=== PATIENT | female | born 1955 | race Caucasian/White ===

== ENCOUNTER → 2017-07-05 15:40 | Outpatient (CLI) | payer BC, SELFPAY ==
[2017-07-05 17:19] LABS: Absolute Lymphocyte Count 1.59 X10^3/ul (0.83-4.51); Absolute Neutrophil Count 3.1 X10^3/uL (2.0-7.7); Basophil# 0.02 X10^3/uL; Basophil% 0.3 % (0-1); Eosinophil# 0.69 X10^3/uL; Eosinophils% 11.6 % (0-5); Hematocrit 40.6 % (37-47); Hemoglobin 13.7 g/dl (12.0-15.0); Lymphocyte # 1.59 X10^3/ul (4.0); Lymphocyte % 26.8 % (19-41); Mean Corp Hgb Conc 33.7 g/gl (32-36); Mean Corpuscular Hgb 32.4 pg (27.0-32.0); Mean Platelet Vol. 10.8 fl (6.2-12.0); Monocyte% 8.4 % (0-10); Neutrophil # 3.12 X10^3/uL (2.7-7.7); Neutrophil % 52.7 % (47-70); Platelet Count 299 K/mm3 (150-450); RBC Distribution Width CV 12.3 % (11.6-14.6); RBC Distribution Width SD 42.2 fl (35.1-43.9); Red Blood Count 4.23 M/mm3 (4.2-5.4); White Blood Count 5.9 K/mm3 (4.4-11.0)
[2017-07-05 17:26] LABS: ALB/GLOB Ratio 1.1 RATIO (0.9-2.4); AST(SGOT) 31 U/L (15-37); Alanine Aminotransfer ALT/SGPT 30 U/L (13-56); Albumin, Serum 3.6 g/dL (3.2-5.0); Alkaline Phosphatase 73 U/L (45-117); Anion Gap 7 (5-15); BUN 20 mg/dL (7-18); BUN/Creat Ratio 22.8 RATIO (10-20); Calcium,Total 8.7 mg/dL (8.5-10.1); Chloride 103 mmol/L (98-107); Creatinine, Serum 0.88 mg/dL (0.55-1.02); EST Glomerular Filtration Rate 69 mL/min (>60); Est Glom Filt Rate - Afr Amer 83 mL/min (>60); Globulin 3.2 g/dL (2.2-4.2); Glucose 80 mg/dL (74-106); Potassium 4.1 mmol/L (3.5-5.1); Protein, Total 6.8 g/dL (6.4-8.2); Sodium Level 140 mmol/L (136-145); Thyroid Stim Hormone (TSH) 1.98 uIU/mL (0.358-3.74)
[2017-07-05 17:58] LABS: POSITIVE COUNT NO; POSITIVE DIFFERENTIAL NO; POSITIVE MORPHOLOGY NO
[2017-07-07 11:14] LABS: Hep C Antibodies <0.1 s/co ratio (0.0-0.9)
== END ==
PROVIDERS: Family Provider Family Medicine Geriatric Medicine; PCP Family Medicine Geriatric Medicine; Visit Provider Family Medicine Geriatric Medicine
DX: E55.9 Vitamin D deficiency, unspecified (principal); R53.83 Other fatigue
CPT/HCPCS: 36415; 80053; 84443; 85025; 86803

== ENCOUNTER → 2018-01-04 11:08 | Outpatient (CLI) | payer BC, SELFPAY ==
[2018-01-04 12:40] LABS: Absolute Lymphocyte Count 1.37 X10^3/ul (0.83-4.51); Absolute Neutrophil Count 3.7 X10^3/uL (2.0-7.7); Basophil# 0.03 X10^3/uL; Basophil% 0.5 % (0-1); Eosinophil# 0.54 X10^3/uL; Eosinophils% 8.6 % (0-5); Hematocrit 40.3 % (37-47); Hemoglobin 13.5 g/dl (12.0-15.0); Lymphocyte # 1.37 X10^3/ul (4.0); Lymphocyte % 21.8 % (19-41); Mean Corp Hgb Conc 33.5 g/gl (32-36); Mean Corpuscular Hgb 32.2 pg (27.0-32.0); Mean Corpuscular Volume 96.2 fL (81-99); Mean Platelet Vol. 10.1 fl (6.2-12.0); Monocyte# 0.65 X10^3/uL; Monocyte% 10.4 % (0-10); Neutrophil # 3.68 X10^3/uL (2.7-7.7); Neutrophil % 58.5 % (47-70); Platelet Count 411 K/mm3 (150-450); RBC Distribution Width CV 12.9 % (11.6-14.6); RBC Distribution Width SD 43.5 fl (35.1-43.9); Red Blood Count 4.19 M/mm3 (4.2-5.4); White Blood Count 6.3 K/mm3 (4.4-11.0)
[2018-01-04 12:43] LABS: POSITIVE COUNT NO; POSITIVE DIFFERENTIAL NO; POSITIVE MORPHOLOGY NO
[2018-01-04 13:06] LABS: ALB/GLOB Ratio 0.8 RATIO (0.9-2.4); AST(SGOT) 27 U/L (15-37); Alanine Aminotransfer ALT/SGPT 31 U/L (13-56); Albumin, Serum 3.3 g/dL (3.2-5.0); Alkaline Phosphatase 89 U/L (45-117); Anion Gap 6 (5-15); BUN 15 mg/dL (7-18); BUN/Creat Ratio 16.1 RATIO (10-20); Calcium,Total 8.6 mg/dL (8.5-10.1); Chloride 102 mmol/L (98-107); Creatinine, Serum 0.93 mg/dL (0.55-1.02); EST Glomerular Filtration Rate 64 mL/min (>60); Est Glom Filt Rate - Afr Amer 78 mL/min (>60); Glucose 71 mg/dL (74-106); Potassium 3.9 mmol/L (3.5-5.1); Protein, Total 7.3 g/dL (6.4-8.2); Sodium Level 138 mmol/L (136-145); Thyroid Stim Hormone (TSH) 5.16 uIU/mL (0.358-3.74)
== END ==
PROVIDERS: Family Provider Family Medicine Geriatric Medicine; PCP Family Medicine Geriatric Medicine; Visit Provider Family Medicine Geriatric Medicine
DX: R53.83 Other fatigue (principal)
CPT/HCPCS: 36415; 80053; 84443; 85025

== ENCOUNTER → 2018-02-01 14:35 | Outpatient (CLI) | payer BC, SELFPAY ==
--- NOTE | 2018-02-01 16:24 | RAD_ITS ---
STUDY: X-RAY - ABDOMEN/PELVIS REASON FOR EXAM: Female, 63 years old. Loss of appetite. TECHNIQUE: 1 view COMPARISON: None. FINDINGS: Normal visualized lung bases. Nondistended stomach and small bowel. Substantial well-formed appearing stool in the transverse, left and distal colon. Negative for organomegaly. There is a band of small punctate densities across the liver which have the look of an filmscreen artifact. Phleboliths of the pelvis. Normal visualized osseous structures. RAD/Abdomen Single View IMPRESSION: Substantial well formed stool present throughout the colon without other acute abdominal or pelvic findings. Band of small punctate calcifications transversely across the liver which have the look of an artifact. Otherwise negative for additional acute abdominal or pelvic findings. Electronically Signed: Judi Berrios MD at 16:50 EST , Service support ,
--- NOTE | 2018-02-01 16:35 | RAD_ITS ---
STUDY: X-RAY CHEST REASON FOR EXAM: Female, 63 years old. SOB, chills without fever. TECHNIQUE: PA and lateral views. COMPARISON: 05/06/2016. FINDINGS: The lungs are clear and expanded. There is no demonstrated pleural abnormality. Normal size heart. Normal mediastinum and arya. Normal visualized pulmonary arteries. Normal visualized aortic arch and descending thoracic aorta. Normal visualized thoracic spine. Normal visualized ribs, clavicles, and shoulders. There is no demonstrated abnormality of the visualized soft tissue structures of the upper abdomen. RAD/Chest PA and Lateral IMPRESSION: Normal x-ray examination of the chest. Electronically Signed: Mary Olsen MD at 16:26 EST Tel , Service support ,
[2018-02-01 16:56] LABS: Absolute Lymphocyte Count 2.01 X10^3/ul (0.83-4.51); Absolute Neutrophil Count 4.6 X10^3/uL (2.0-7.7); Basophil# 0.01 X10^3/uL; Basophil% 0.1 % (0-1); Eosinophils% 2.7 % (0-5); Hematocrit 43.2 % (37-47); Hemoglobin 14.1 g/dl (12.0-15.0); Lymphocyte # 2.01 X10^3/ul (4.0); Lymphocyte % 26.9 % (19-41); Mean Corp Hgb Conc 32.6 g/gl (32-36); Mean Corpuscular Hgb 31.8 pg (27.0-32.0); Mean Corpuscular Volume 97.5 fL (81-99); Mean Platelet Vol. 9.5 fl (6.2-12.0); Monocyte# 0.58 X10^3/uL; Monocyte% 7.8 % (0-10); Neutrophil # 4.64 X10^3/uL (2.7-7.7); Neutrophil % 62.1 % (47-70); Platelet Count 434 K/mm3 (150-450); RBC Distribution Width CV 13.2 % (11.6-14.6); RBC Distribution Width SD 47.3 fl (35.1-43.9); Red Blood Count 4.43 M/mm3 (4.2-5.4); White Blood Count 7.5 K/mm3 (4.4-11.0)
[2018-02-01 17:00] LABS: POSITIVE COUNT NO; POSITIVE DIFFERENTIAL NO; POSITIVE MORPHOLOGY NO
[2018-02-01 17:14] LABS: ALB/GLOB Ratio 0.9 RATIO (0.9-2.4); AST(SGOT) 29 U/L (15-37); Alanine Aminotransfer ALT/SGPT 38 U/L (13-56); Albumin, Serum 3.6 g/dL (3.2-5.0); Alkaline Phosphatase 78 U/L (45-117); Anion Gap 8 (5-15); BUN 15 mg/dL (7-18); BUN/Creat Ratio 16.4 RATIO (10-20); Calcium,Total 8.8 mg/dL (8.5-10.1); Chloride 102 mmol/L (98-107); Creatinine, Serum 0.92 mg/dL (0.55-1.02); EST Glomerular Filtration Rate 66 mL/min (>60); Est Glom Filt Rate - Afr Amer 79 mL/min (>60); Globulin 3.9 g/dL (2.2-4.2); Glucose 87 mg/dL (74-106); Potassium 3.8 mmol/L (3.5-5.1); Protein, Total 7.5 g/dL (6.4-8.2); Sodium Level 140 mmol/L (136-145); Thyroid Stim Hormone (TSH) 1.86 uIU/mL (0.358-3.74)
== END ==
LOC: POLAB3 14:36 → RAD 16:12
PROVIDERS: Family Provider Family Medicine Geriatric Medicine; PCP Family Medicine Geriatric Medicine; Referring Provider Family Medicine Geriatric Medicine; Visit Provider Family Medicine Geriatric Medicine
DX: E86.0 Dehydration (principal); N39.0 Urinary tract infection, site not specified; R06.89 Other abnormalities of breathing; R63.0 Anorexia; R68.83 Chills (without fever)
CPT/HCPCS: 36415; 71046; 74018; 80053; 84443; 85025; 87086; 87088; 87633

== ENCOUNTER → 2018-05-26 12:07 | Outpatient (CLI) | payer BC, SELFPAY ==
--- NOTE | 2018-05-26 12:36 | RAD_ITS ---
STUDY: X-RAY CHEST REASON FOR EXAM: Female, 63 years old. 4 day history of cough. TECHNIQUE: PA and lateral views of the chest. COMPARISON: Comparison is made with prior study dated February 01, 2018. FINDINGS: Increased markings are seen in the right middle lobe and lingular segment of the left upper lobe. This may represent early infiltrate. Follow-up is recommended. There is no demonstrated pleural abnormality. Normal size heart. Normal mediastinum and arya. Normal visualized pulmonary arteries. Normal visualized aortic arch and descending thoracic aorta. Normal visualized thoracic spine. Normal visualized ribs, clavicles, and shoulders. Faint calcifications are seen in the right upper quadrant. These may represent gallstones. RAD/Chest PA and Lateral IMPRESSION: Increased markings in the right middle lobe and lingular segment of the left upper lobe. Follow-up is recommended. Electronically Signed: Chicho Hercules, at 13:11 EST , Service support ,
== END ==
PROVIDERS: Family Provider Family Medicine Geriatric Medicine; PCP Family Medicine Geriatric Medicine; Referring Provider Family Medicine Geriatric Medicine; Visit Provider Family Medicine Geriatric Medicine
DX: J18.9 Pneumonia, unspecified organism (principal); R68.83 Chills (without fever)
CPT/HCPCS: 71046; 87633

== ENCOUNTER → 2018-07-06 11:29 | Outpatient (CLI) | payer BC, SELFPAY ==
[2018-07-06 12:53] LABS: Absolute Lymphocyte Count 1.61 X10^3/ul (0.83-4.51); Absolute Neutrophil Count 2.4 X10^3/uL (2.0-7.7); Basophil# 0.03 X10^3/uL; Basophil% 0.6 % (0-1); Eosinophil# 0.33 X10^3/uL; Eosinophils% 6.7 % (0-5); Hematocrit 41.2 % (37-47); Hemoglobin 13.7 g/dl (12.0-15.0); Lymphocyte # 1.61 X10^3/ul (4.0); Lymphocyte % 32.5 % (19-41); Mean Corp Hgb Conc 33.3 g/gl (32-36); Mean Corpuscular Hgb 30.9 pg (27.0-32.0); Mean Platelet Vol. 9.7 fl (6.2-12.0); Monocyte# 0.55 X10^3/uL; Monocyte% 11.1 % (0-10); Neutrophil # 2.42 X10^3/uL (2.7-7.7); Neutrophil % 48.9 % (47-70); Platelet Count 377 K/mm3 (150-450); RBC Distribution Width CV 12.9 % (11.6-14.6); RBC Distribution Width SD 44.5 fl (35.1-43.9); Red Blood Count 4.43 M/mm3 (4.2-5.4)
[2018-07-06 12:58] LABS: POSITIVE COUNT NO; POSITIVE DIFFERENTIAL NO; POSITIVE MORPHOLOGY NO
[2018-07-06 13:06] LABS: Vitamin D,25 Hydroxy 34.6 ng/mL (29.95-100.01)
[2018-07-06 13:17] LABS: AST(SGOT) 31 U/L (15-37); Alanine Aminotransfer ALT/SGPT 28 U/L (13-56); Albumin, Serum 3.5 g/dL (3.2-5.0); Alkaline Phosphatase 84 U/L (45-117); Anion Gap 5 (5-15); BUN 18 mg/dL (7-18); BUN/Creat Ratio 20.7 RATIO (10-20); Calcium,Total 8.7 mg/dL (8.5-10.1); Chloride 104 mmol/L (98-107); Creatinine, Serum 0.87 mg/dL (0.55-1.02); EST Glomerular Filtration Rate 70 mL/min (>60); Est Glom Filt Rate - Afr Amer 84 mL/min (>60); Globulin 3.5 g/dL (2.2-4.2); Glucose 75 mg/dL (74-106); Potassium 3.9 mmol/L (3.5-5.1); Sodium Level 139 mmol/L (136-145); Thyroid Stim Hormone (TSH) 1.16 uIU/mL (0.358-3.74)
== END ==
PROVIDERS: Family Provider Family Medicine Geriatric Medicine; PCP Family Medicine Geriatric Medicine; Visit Provider Family Medicine Geriatric Medicine
DX: E03.9 Hypothyroidism, unspecified (principal); E55.9 Vitamin D deficiency, unspecified; R53.83 Other fatigue
CPT/HCPCS: 36415; 80053; 82306; 84443; 85025

== ENCOUNTER → 2018-07-21 16:20 | Outpatient (CLI) | payer BC, SELFPAY ==
[2018-07-21 14:49] VITALS: BMI 26.5
== END ==
PROVIDERS: Family Provider Family Medicine Geriatric Medicine; PCP Family Medicine Geriatric Medicine; Referring Provider Family Medicine Geriatric Medicine; Visit Provider Family Medicine Geriatric Medicine
DX: R68.83 Chills (without fever) (principal)
CPT/HCPCS: 87633

== ENCOUNTER → 2018-07-22 09:55 | Outpatient (CLI) | payer BC, SELFPAY ==
[2018-07-21 14:49] VITALS: BMI 26.5
[2018-07-22 11:10] LABS: Absolute Lymphocyte Count 1.62 X10^3/ul (0.83-4.51); Absolute Neutrophil Count 3.9 X10^3/uL (2.0-7.7); Basophil# 0.03 X10^3/uL; Basophil% 0.4 % (0-1); Eosinophil# 0.47 X10^3/uL; Hematocrit 40.9 % (37-47); Hemoglobin 13.8 g/dl (12.0-15.0); Lymphocyte # 1.62 X10^3/ul (4.0); Lymphocyte % 24.3 % (19-41); Mean Corp Hgb Conc 33.7 g/gl (32-36); Mean Corpuscular Hgb 31.6 pg (27.0-32.0); Mean Corpuscular Volume 93.6 fL (81-99); Mean Platelet Vol. 9.5 fl (6.2-12.0); Monocyte# 0.62 X10^3/uL; Monocyte% 9.3 % (0-10); Neutrophil # 3.93 X10^3/uL (2.7-7.7); Platelet Count 370 K/mm3 (150-450); RBC Distribution Width CV 13.2 % (11.6-14.6); RBC Distribution Width SD 45.4 fl (35.1-43.9); Red Blood Count 4.37 M/mm3 (4.2-5.4); White Blood Count 6.7 K/mm3 (4.4-11.0)
[2018-07-22 11:12] LABS: POSITIVE COUNT NO; POSITIVE DIFFERENTIAL NO; POSITIVE MORPHOLOGY NO
[2018-07-22 11:29] LABS: ALB/GLOB Ratio 0.9 RATIO (0.9-2.4); AST(SGOT) 36 U/L (15-37); Alanine Aminotransfer ALT/SGPT 27 U/L (13-56); Albumin, Serum 3.4 g/dL (3.2-5.0); Alkaline Phosphatase 85 U/L (45-117); Anion Gap 5 (5-15); BUN 21 mg/dL (7-18); BUN/Creat Ratio 23.4 RATIO (10-20); Calcium,Total 8.5 mg/dL (8.5-10.1); Chloride 105 mmol/L (98-107); EST Glomerular Filtration Rate 67 mL/min (>60); Est Glom Filt Rate - Afr Amer 81 mL/min (>60); Globulin 3.8 g/dL (2.2-4.2); Glucose 67 mg/dL (74-106); Potassium 4.1 mmol/L (3.5-5.1); Protein, Total 7.2 g/dL (6.4-8.2); Sodium Level 139 mmol/L (136-145)
--- NOTE | 2018-07-22 12:36 | CT_ITS ---
STUDY: CT ABDOMEN AND PELVIS WITH CONTRAST REASON FOR EXAM: Female, 63 years old. Left lower quadrant pain RADIATION DOSAGE (If Supplied By Facility): CTDIvol = ( 10.62 ) mGy, DLP = ( 606.91 ) mGycm TECHNIQUE: Transaxial images were obtained from the dome of the diaphragm to the symphysis pubis with oral contrast. 75ML IV/Oral Isovue 370 was administered. Sagittal and coronal images were reconstructed. Individualized dose optimization techniques were used for this CT. COMPARISON: 2015 FINDINGS: The visualized lung bases are unremarkable. The visualized portions of the heart are within normal limits. Normal liver. Normal gallbladder and extrahepatic biliary system. Normal spleen. Normal pancreas. Normal bilateral adrenal glands. Normal right kidney. Normal left kidney. Normal visualized stomach. Normal small intestine. Retained stool noted throughout the colon There are surgical clips in the region of the appendix consistent with a prior appendectomy. Normal abdominal aorta. Normal inferior vena cava. Normal retroperitoneum. Normal urinary bladder. Normal abdominal wall. There are mild degenerative changes of the visualized lumbar spine, and pelvis. CT/Abdomen/Pelvis WITH Contrast IMPRESSION: No suspicious solid organ abnormality No CT evidence of an acute inflammatory process Retained stool noted throughout the colon Electronically Signed: Trey Zambrano MD at 14:00 EDT , Service support ,
== END ==
LOC: POLAB3 09:55 → CT 12:34
PROVIDERS: Family Provider Family Medicine Geriatric Medicine; PCP Family Medicine Geriatric Medicine; Referring Provider Family Medicine Geriatric Medicine; Visit Provider Family Medicine Geriatric Medicine
DX: R10.9 Unspecified abdominal pain (principal); K57.32 Diverticulitis of large intestine without perforation or abscess without bleeding
CPT/HCPCS: 36415; 74177; 80053; 85025; Q9967

== ENCOUNTER → 2018-08-29 13:25 | Outpatient (CLI) | payer BC, SELFPAY ==
[2018-07-21 14:49] VITALS: BMI 26.5
--- NOTE | 2018-08-29 13:35 | RAD_ITS ---
STUDY: X-RAY CHEST REASON FOR EXAM: Female, 63 years old. 1 week history of cough. TECHNIQUE: PA and lateral views of the chest. COMPARISON: Comparison is made with prior examination dated May 26, 2018. FINDINGS: There is hyperinflation of the lungs consistent with chronic obstructive lung disease (COPD). There is no demonstrated pleural abnormality. Normal size heart. Normal mediastinum and arya. There is prominence of the pulmonary hilar arteries without peripheral pulmonary vascular congestion, suggesting pulmonary hypertension. Normal visualized aortic arch and descending thoracic aorta. There are diffuse degenerative changes of the visualized thoracic spine. Pectus carinatum deformity. Normal visualized ribs, clavicles, and shoulders. There is no demonstrated abnormality of the visualized soft tissue structures of the upper abdomen. RAD/Chest PA and Lateral IMPRESSION: Hyperinflation. Electronically Signed: Chicho Hercules, at 13:55 EDT , Service support ,
== END ==
PROVIDERS: Family Provider Family Medicine Geriatric Medicine; PCP Family Medicine Geriatric Medicine; Referring Provider Family Medicine Geriatric Medicine; Visit Provider Family Medicine Geriatric Medicine
DX: J18.9 Pneumonia, unspecified organism (principal); M79.10 Myalgia, unspecified site
CPT/HCPCS: 71046; 87633

== ENCOUNTER → 2018-08-29 15:13 | Outpatient (CLI) | payer BC, SELFPAY ==
[2018-07-21 14:49] VITALS: BMI 26.5
[2018-08-29 17:22] LABS: Absolute Lymphocyte Count 1.58 X10^3/ul (0.83-4.51); Absolute Neutrophil Count 3.1 X10^3/uL (2.0-7.7); Basophil# 0.04 X10^3/uL; Basophil% 0.7 % (0-1); Eosinophil# 0.71 X10^3/uL; Hematocrit 39.8 % (37-47); Hemoglobin 13.4 g/dl (12.0-15.0); Lymphocyte # 1.58 X10^3/ul (4.0); Lymphocyte % 26.6 % (19-41); Mean Corp Hgb Conc 33.7 g/gl (32-36); Mean Corpuscular Hgb 31.5 pg (27.0-32.0); Mean Corpuscular Volume 93.6 fL (81-99); Mean Platelet Vol. 9.8 fl (6.2-12.0); Monocyte# 0.47 X10^3/uL; Monocyte% 7.9 % (0-10); Neutrophil # 3.11 X10^3/uL (2.7-7.7); Neutrophil % 52.5 % (47-70); Platelet Count 353 K/mm3 (150-450); RBC Distribution Width CV 13.4 % (11.6-14.6); Red Blood Count 4.25 M/mm3 (4.2-5.4); White Blood Count 5.9 K/mm3 (4.4-11.0)
[2018-08-29 17:34] LABS: POSITIVE COUNT NO; POSITIVE DIFFERENTIAL NO; POSITIVE MORPHOLOGY NO
[2018-08-29 17:55] LABS: Anion Gap 8 (5-15); BUN 15 mg/dL (7-18); BUN/Creat Ratio 17.9 RATIO (10-20); Chloride 102 mmol/L (98-107); Creatinine, Serum 0.84 mg/dL (0.55-1.02); EST Glomerular Filtration Rate 72 mL/min (>60); Est Glom Filt Rate - Afr Amer 88 mL/min (>60); Glucose 90 mg/dL (74-106); Potassium 3.7 mmol/L (3.5-5.1); Sodium Level 141 mmol/L (136-145)
== END ==
PROVIDERS: Family Provider Family Medicine Geriatric Medicine; PCP Family Medicine Geriatric Medicine; Visit Provider Family Medicine Geriatric Medicine
DX: J40 Bronchitis, not specified as acute or chronic (principal)
CPT/HCPCS: 36415; 80048; 85025

== ENCOUNTER → 2018-09-20 08:25 | Outpatient (CLI) | payer BC, SELFPAY ==
[2018-07-21 14:49] VITALS: BMI 26.5
--- NOTE | 2018-09-20 08:27 | BD_ITS ---
STUDY: DUAL ENERGY X-RAY ABSORPTIOMETRY / DXA REASON FOR EXAM: Female, 63 years old. The patient is postmenopausal. Loss of height. TECHNIQUE: Bone Mineral Density (BMD) measurements of lumbar spine and bilateral hips were obtained. COMPARISON: Comparison is made with prior study dated June 26, 2014. FINDINGS: Lumbar Spine (L1-L4): g/cm2 (1.409) / T-score (2.0) / Z-score (3.6) Findings are suggestive of normal bone density with a low fracture risk. Left Femur Total: g/cm2 (1.146) / T-score (1.1) / Z-score (2.3) Left Femoral Neck: g/cm2 (1.006) / T-score (-0.2) / Z-score (1.3) Right Femur Total: g/cm2 (1.067) / T-score (0.5) / Z-score (1.7) Right Femoral Neck: g/cm2 (0.928) / T-score (-0.8) / Z-score (0.7) The T-Scores on the most recent prior examination were: Lumbar Spine (L1-L4): There has been improvement of bone density since the previous examination. Left Femur Total: which represents an improvement of 4.8%. Right Femur Total: which represents a worsening of 0.3%. BD/Dexa Bone Density Study IMPRESSION: The patient is considered normal as outlined below according to World Alvar[employer] Organization (WHO) criteria with a low fracture risk. There has been improvement of bone density since the previous examination. Reference Information: The T-score is the number of standard deviations above or below the standard which is normal for young adults at their peak bone mineral density. The World Health Organization (WHO) interprets the T-scores as follows: Above -1 Normal bone density Between -1 and -2.5 Osteopenia Equal to / or below -2.5 Osteoporosis As a practical clinical guideline, osteopenia may be graded as follows: Mild -1 through -1.5 Moderate -1.6 through -2.0 Severe -2.1 through -2.4 The Z-score is the number of standard deviations above or below age-matched controls. A Z-score of less than -1.5 would be considered abnormal. References: 1. NIH Osteoporosis and Related Bone Diseases http://www.osteo.org 2. International Society for Clinical Densitometry http://www.iscd.org 3. National Osteoporosis Foundation http://www.nof.org Electronically Signed: Chicho Hercules, at 10:07 EDT , Service support ,
== END ==
PROVIDERS: Family Provider Family Medicine Geriatric Medicine; PCP Family Medicine Geriatric Medicine; Referring Provider Family Medicine Geriatric Medicine; Visit Provider Family Medicine Geriatric Medicine
DX: Z78.0 Asymptomatic menopausal state (principal)
CPT/HCPCS: 77080

== ENCOUNTER 2018-09-24 18:18 | Emergency (ER) | payer BC, SELFPAY ==
[2018-07-21 14:49] VITALS: BMI 26.5
[2018-09-24 18:19] VITALS: BP 169/92; PULSE 81; RESP 16; TEMP 36.4; O2SAT 98; BMI 28.2
--- NOTE | 2018-09-24 18:29 | RAD_ITS ---
STUDY: X-RAY - PELVIS AND LEFT HIP REASON FOR EXAM: Female, 63 years old. Trauma, fall from ladder 7 feet, left hip pain. TECHNIQUE: Free views of the pelvis and hip. COMPARISON: None. FINDINGS: Low lumbar spine, sacral arcades, SI joints, iliac crests, pubic rami appear intact. There are very minimal degenerative features of the hip joints bilaterally. There is no evidence of acute left hip fracture. There is a contusion within the subcutaneous fat overlying the left hip, with a greatest craniocaudal dimension of approximately 8.8 cm. RAD/HIP, UNI W/ Pelvis 2-3 Views IMPRESSION: Superficial soft tissue contusion overlying the left hip. No evidence of acute fracture. Electronically Signed: Lit Varela MD at 19:28 EDT Tel , Service support ,
--- NOTE | 2018-09-24 18:29 | RAD_ITS ---
STUDY: X-RAY - LEFT FOOT CLINICAL: Female, 63 years old. Trauma, fall from ladder 7 feet, bruising and swelling 5th metatarsal. TECHNIQUE: 3 view(s) of the foot. COMPARISON: None. FINDINGS: Normal talus, calcaneus, and tarsal bones. Normal visualized subtalar, talonavicular, calcaneocuboid, tarsal and tarsometatarsal articulations. Normal metatarsi. Normal metatarsophalangeal joint of the great toe. Normal tibial and fibular sesamoid bones. Normal interphalangeal joint of the great toe. Normal phalanges of the great toe. Normal second through fifth metatarsophalangeal joints. Normal interphalangeal joints and phalanges of the lesser toes. The soft tissue structures are unremarkable. RAD/Foot min 3 Views IMPRESSION: Normal x-ray examination of the foot. No evidence of acute injury. Electronically Signed: Lit Varela MD at 19:27 EDT Tel , Service support ,
--- NOTE | 2018-09-24 18:29 | RAD_ITS ---
STUDY: X-RAY - LEFT ELBOW REASON FOR EXAM: Female, 63 years old. Trauma, fall from ladder 7 feet, laceration left elbow medially TECHNIQUE: 3 view(s) of the elbow. COMPARISON: None. FINDINGS: Prominent medial elbow soft tissue defect. A true lateral view of the elbow was not obtained, cannot assess for effusion. No visible fracture. No radiodense foreign body. RAD/Elbow min 3 Views IMPRESSION: No apparent fracture. Superficial soft tissue injury. No radiodense foreign body. Electronically Signed: Lit Varela MD at 19:26 EDT Tel , Service support ,
[2018-09-24] MEDS: oxyCODONE 5 MG Tablet PO (18:37)
--- NOTE | 2018-09-24 20:33 | ED.VISSUMM ---
- ER Visit Summary Date of Service: 09/24/18 Chief Complaint: Fall off ladder History of Present Illness: The patient is a 63 F who presents the emergency department via EMS following a fall off a ladder. She was approximately 6 to 7 feet in the air when she fell. She states she had a ceramic object on with her left hip. She notes a laceration to the left elbow, pain in the left hip, pain in the left foot. She denies striking her head or any loss of consciousness. No neck or back pain. No chest or abdominal pain. Tetanus was less than 5 years ago Physical Examination: Afebrile vital signs are stable Gen: Well-nourished well-developed Head: Normocephalic atraumatic Eyes: Perrl EOMI ENT: TMs clear no rhinorrhea moist mucous membranes Neck: Supple no lymphadenopathy no JVD nontender CVS: Regular rate rhythm no murmurs normal S1-S2 Respiratory: No distress clear to auscultation bilaterally chest nontender Abdomen: Soft nontender nondistended normal bowel sounds no masses Back: Nontender Extremity: Tenderness over the left hip and painful range of motion including logroll. There is a hematoma contusion over the lateral dorsum of the left foot. There is a 8 cm gaping laceration to the medial aspect of the proximal left forearm. Neurovascular intact distal. Skin: Normal color no rash Neuro: alert orientated ?3 CN II-XII intact normal strength sensation reflexes gait cerebellar Psych: Normal affect normal mood Test Results: X-rays of the foot hip and elbow were negative for fracture. Emergency Department Course and Treatment: Patient received [place] for pain. Her wound was locally anesthetized using 1% lidocaine. It was washed with Shur-Clens and explored. Patient skin is extremely thin and the majority of the skin around the laceration was concussed and purple. A total of 13 simple interrupted 3-0 Ethilon sutures were applied. Bacitracin ointment nonstick gauze and an David wrap to help limit motion were also applied after suture repair. Wound care discussed with family and patient stitches will need to be removed in 10 to 14 days. She was advised that the wound may have poor healing. I will write for short course of [place] at home. Impression: 1. Fall off ladder 2. 8 cm complex left arm laceration with repair 3. Left hip contusion 4. Left foot contusion 5. Right arm abrasion This note was generated with [employer] dictation software. It may contain incorrect words, spelling, and punctuation that were not noted in review of the chart prior to signing ED Disposition - Plan for ED Patient: Disposition: Home or Assisted Living Instructions: Hip Contusion, LACERATION, All Prescriptions: Hydrocodone Bitart/Apap 5-325 [[place] 5MG-325MG] 1 tab PO Q6H PRN PRN 3 Days #10 tab PRN Reason: Pain Prescription Printed Referrals: Wilton Navas Chi, MD [Primary Care Provider] - 10-14 Days suture removal
[2018-09-24] MEDS: Ketorolac 60 MG/2 ML Vial IM (20:49)
[2018-09-24 21:06] VITALS: BP 133/70; PULSE 68; O2SAT 96
== END 2018-09-24 21:22 | disposition home or self-care (01) ==
PROVIDERS: Emergency Provider Emergency Medicine; Family Provider Family Medicine Geriatric Medicine; PCP Family Medicine Geriatric Medicine
DX: S51.012A Laceration without foreign body of left elbow, initial encounter (principal); S70.02XA Contusion of left hip, initial encounter; S90.32XA Contusion of left foot, initial encounter; S40.812A Abrasion of left upper arm, initial encounter; W11.XXXA Fall on and from ladder, initial encounter; Y93.9 Activity, unspecified; Y92.9 Unspecified place or not applicable; Y99.9 Unspecified external cause status; M79.7 Fibromyalgia; Z79.899 Other long term (current) drug therapy
CPT/HCPCS: 12004; 73080; 73502; 73630; 96372; 99285; A4216

== ENCOUNTER → 2018-11-08 13:58 | Outpatient (CLI) | payer MEDICARE, OTHER, SELFPAY ==
--- NOTE | 2018-11-08 14:05 | VDLE_ITS ---
Reason For Study: Edema RIGHT LEFT GSV is normal. GSV is normal. CFV is compressible, spontaneous, phasic, CFV is compressible, spontaneous, phasic, competent and demonstrates normal competent, and demonstrates normal augmentation. augmentation. FV is compressible, spontaneous, phasic, FV is compressible, spontaneous, phasic, competent and demonstrates normal competent and demonstrates normal augmentation. augmentation. POP V is compressible, spontaneous, phasic, POP V is compressible, spontaneous, phasic, competent and demonstrates normal competent and demonstrates normal augmentation. augmentation. T/P Trunk is compressible. T/P Trunk is compressible. PTV is compressible. PTV is compressible. RT PerV is compressible. LT PerV is compressible. Procedure Exam performed in department. A preliminary report was called and/or faxed to [facility]. Interpretation Summary Deep veins of the lower extremities are bilaterally patent and compressible segmentally. There is no evidence of deep vein thrombosis on either side. Valvular competence appears intact within the proximal deep venous systems bilaterally. The great saphenous veins appear bilaterally patent and compressible segmentally. Ordering Physician: Wilton Navas Referring Physician: Wilton Navas Chi Performed By: Merline Parra RVT
--- NOTE | 2018-11-08 14:34 | RAD_ITS ---
STUDY: X-RAY - PELVIS AND RIGHT HIP REASON FOR EXAM: Female, 63 years old. Right hip pain TECHNIQUE: 3 views of the pelvis and hip. COMPARISON: None. FINDINGS: There is a non-specific bowel gas pattern. Normal visualized soft tissue structures. Normal bilateral iliac wings, sacroiliac joints and visualized sacrum. Normal bilateral superior and inferior pubic rami. Normal pubic symphysis. Normal bilateral ischial tuberosities. Normal visualized femoral head. Normal acetabulum. Normal hip joint. RAD/HIP, UNI W/ Pelvis 2-3 Views IMPRESSION: Normal x-ray examination of the pelvis and hip. Electronically Signed: Jake Castrejon MD at 23:07 EDT , Service support ,
--- NOTE | 2018-11-08 14:43 | RAD_ITS ---
STUDY: X-RAY - RIGHT KNEE REASON FOR EXAM: Female, 63 years old. Knee pain TECHNIQUE: 4 view(s) of the knee. COMPARISON: None. FINDINGS: Normal visualized distal femur. Normal visualized proximal tibia and fibula. Normal proximal tibiofibular articulation. Normal medial femorotibial compartment. Normal lateral femorotibial compartment. Normal patellofemoral articulation. The soft tissue structures are unremarkable. RAD/Knee 4 or More Views IMPRESSION: Normal x-ray examination of the knee. Electronically Signed: Jake Castrejon MD at 22:40 EDT , Service support ,
--- NOTE | 2018-11-08 14:52 | RAD_ITS ---
STUDY: X-RAY - LUMBAR SPINE REASON FOR EXAM: Female, 63 years old. Pain TECHNIQUE: 2 view(s) of the lumbar spine were obtained. COMPARISON: None FINDINGS: There is no evidence of fracture or dislocation in the lumbar spine. The vertebral body heights are well-maintained. Mild disc space loss is present at the L2-L3 level. Mild multilevel osteophytosis is present. RAD/Lumbar Spine 2 or 3 Views IMPRESSION: No fracture or dislocation in the lumbar spine. Mild multilevel degenerative changes. Electronically Signed: Darnell Giron, at 21:16 EDT Tel , Service support ,
== END ==
PROVIDERS: Family Provider Family Medicine Geriatric Medicine; PCP Family Medicine Geriatric Medicine; Referring Provider Family Medicine Geriatric Medicine; Visit Provider Family Medicine Geriatric Medicine
DX: R60.0 Localized edema (principal); M54.5 Low back pain; M25.561 Pain in right knee; M25.551 Pain in right hip
CPT/HCPCS: 72100; 73502; 73564; 93970

== ENCOUNTER → 2019-01-04 10:35 | Outpatient (CLI) | payer MEDICARE, OTHER, SELFPAY ==
[2019-01-04 12:42] LABS: Absolute Lymphocyte Count 1.39 X10^3/uL (0.83-4.51); Absolute Neutrophil Count 2.5 X10^3/uL (2.0-7.7); Basophil# 0.02 X10^3/uL; Basophil% 0.4 % (0-1); Eosinophil# 0.17 X10^3/uL; Eosinophils% 3.8 % (0-5); Hematocrit 41.8 % (37-47); Hemoglobin 13.7 g/dL (12.0-15.0); Lymphocyte # 1.39 X10^3/ul (4.0); Lymphocyte % 30.7 % (19-41); Mean Corp Hgb Conc 32.8 g/dL (32-36); Mean Corpuscular Hgb 31.7 pg (27.0-32.0); Mean Corpuscular Volume 96.8 fL (81-99); Mean Platelet Vol. 9.8 fl (6.2-12.0); Monocyte# 0.42 X10^3/uL; Monocyte% 9.3 % (0-10); NRBC Flagged by Analyzer 0 % (0-5); Neutrophil # 2.52 X10^3/uL (2.7-7.7); Neutrophil % 55.6 % (47-70); Platelet Count 380 K/mm3 (150-450); RBC Distribution Width CV 13.3 % (11.6-14.6); RBC Distribution Width SD 47.6 fl (35.1-43.9); Red Blood Count 4.32 M/mm3 (4.2-5.4); White Blood Count 4.5 K/mm3 (4.4-11.0)
[2019-01-04 13:04] LABS: Vitamin D,25 Hydroxy 19.2 ng/mL (29.95-100.01)
[2019-01-04 13:16] LABS: ALB/GLOB Ratio 1.1 RATIO (0.9-2.4); AST(SGOT) 34 U/L (15-37); Alanine Aminotransfer ALT/SGPT 40 U/L (13-56); Albumin, Serum 3.8 g/dL (3.2-5.0); Alkaline Phosphatase 86 U/L (45-117); Anion Gap 5 (5-15); BUN 15 mg/dL (7-18); Calcium,Total 8.7 mg/dL (8.5-10.1); Chloride 106 mmol/L (98-107); EST Glomerular Filtration Rate 59 mL/min (>60); Est Glom Filt Rate - Afr Amer 71 mL/min (>60); Globulin 3.5 g/dL (2.2-4.2); Glucose 88 mg/dL (74-106); Potassium 3.8 mmol/L (3.5-5.1); Protein, Total 7.3 g/dL (6.4-8.2); Sodium Level 139 mmol/L (136-145); Thyroid Stim Hormone (TSH) 2.86 uIU/mL (0.358-3.74)
== END ==
PROVIDERS: Family Provider Family Medicine Geriatric Medicine; PCP Family Medicine Geriatric Medicine; Visit Provider Family Medicine Geriatric Medicine
DX: E55.9 Vitamin D deficiency, unspecified (principal); R53.83 Other fatigue
CPT/HCPCS: 36415; 80053; 82306; 84443; 85025

== ENCOUNTER → 2019-01-25 16:41 | Outpatient (CLI) | payer MEDICARE, OTHER, SELFPAY ==
[2019-01-25 17:41] LABS: Erythrocyte Sedimentation Rate 31 mm/hr (0-30)
[2019-01-25 17:42] LABS: Absolute Lymphocyte Count 1.81 X10^3/uL (0.83-4.51); Absolute Neutrophil Count 4.2 X10^3/uL (2.0-7.7); Basophil# 0.03 X10^3/uL; Basophil% 0.4 % (0-1); Eosinophil# 0.18 X10^3/uL; Eosinophils% 2.6 % (0-5); Hematocrit 36.7 % (37-47); Hemoglobin 12.5 g/dL (12.0-15.0); Lymphocyte # 1.81 X10^3/ul (4.0); Lymphocyte % 26.6 % (19-41); Mean Corp Hgb Conc 34.1 g/dL (32-36); Mean Corpuscular Hgb 32.1 pg (27.0-32.0); Mean Corpuscular Volume 94.3 fL (81-99); Mean Platelet Vol. 9.5 fl (6.2-12.0); Monocyte# 0.62 X10^3/uL; Monocyte% 9.1 % (0-10); NRBC Flagged by Analyzer 0 % (0-5); Neutrophil # 4.15 X10^3/uL (2.7-7.7); Platelet Count 374 K/mm3 (150-450); RBC Distribution Width CV 13.5 % (11.6-14.6); RBC Distribution Width SD 46.7 fl (35.1-43.9); Red Blood Count 3.89 M/mm3 (4.2-5.4); White Blood Count 6.8 K/mm3 (4.4-11.0)
[2019-01-25 17:44] LABS: Anion Gap 8 (5-15); BUN 12 mg/dL (7-18); BUN/Creat Ratio 12.4 RATIO (10-20); Calcium,Total 8.5 mg/dL (8.5-10.1); Chloride 105 mmol/L (98-107); Creatinine, Serum 0.97 mg/dL (0.55-1.02); EST Glomerular Filtration Rate 61 mL/min (>60); Est Glom Filt Rate - Afr Amer 74 mL/min (>60); Glucose 93 mg/dL (74-106); Potassium 3.5 mmol/L (3.5-5.1); Sodium Level 141 mmol/L (136-145)
== END ==
PROVIDERS: Family Provider Family Medicine Geriatric Medicine; PCP Family Medicine Geriatric Medicine; Visit Provider Family Medicine Geriatric Medicine
DX: R06.89 Other abnormalities of breathing (principal)
CPT/HCPCS: 36415; 80048; 85025; 85652; 86140

== ENCOUNTER 2019-02-26 08:42 | Emergency (ER) | payer MEDICARE, OTHER, SELFPAY ==
[2019-02-26 08:43] VITALS: BP 148/86; PULSE 79; RESP 17; TEMP 36.7; O2SAT 98; BMI 26.5
--- NOTE | 2019-02-26 09:37 | ED.DCSUM_ITS ---
History of Present Illness Chief Complaint: Upper Extremity Injury Detail of Chief Complaint: Right arm pain Informant: Patient Onset: Month(s) - 2 months, worse over the past 2 days Context: Gradual Onset Timing: Waxes and wanes Current Severity: Moderate Maximum Severity: Severe Narrative: Patient presents with pain to her right arm is been ongoing for the past 2 months. She states she feels like it started around her wrist and hand. She now has aching up through her forearm and up into the shoulder. She denies neck pain. Pain is worse with movement. She has been seen by her primary care physician and is scheduled to go back tomorrow for more blood work. She states she got 4 shots in the office and was put on a muscle relaxer, but that did not seem to help. She denies any recent injury. - Past Medical History (1) Fibromyalgia Status: Chronic (2) Melanoma Status: Chronic (3) Scleroderma Status: Chronic (4) Rheumatic fever Status: Chronic (5) Hypothyroidism Status: Chronic (6) GERD (gastroesophageal reflux disease) Status: Chronic (7) High cholesterol Status: Chronic Past Medical History - Allergies and Home Meds Allergies/Adverse Reactions: Allergies No Known Allergies Allergy (Verified 02/26/19 08:43) Primary Care Physician: Wilton Navas Chi, MD [Primary Care Provider] - Prior records reviewed: Yes Lives: Spouse/ Significant Other Smoking Status: Never smoker Review of Systems General: Denies: Chills, Fever Eyes: Denies: Visual changes - bilaterally ENT: Denies: Bilateral ear pain, Sore throat Cardiovascular: Denies: Chest pain Respiratory: Denies: Dyspnea, Cough Gastrointestinal: Denies: Abdominal pain, Nausea, Vomiting, Diarrhea Genitourinary: Denies: Dysuria Musculoskeletal: Reports: Swelling, Extremity Pain. Denies: Neck pain Skin: Denies: Rash Neurological: Denies: Headache, Numbness Hematologic: Denies: Easy bruising Allergy: Denies: Uticaria Physical Exam Vital Signs/Narrative: Vital Signs Temp Pulse Resp BP Pulse Ox 02/26/19 08:43 98.1 F 79 17 148/86 H 98 Inital Vital Signs reviewed: Yes General: Well nourished, Well developed Head: Normocephalic ENT: Moist mucous membranes Neck: Supple, - - No cervical tenderness. Cardiovascular: Regular rate, Regular rhythm Respiratory: No distress, CTA bilaterally Abdomen: Soft, Nontender Back: Nontender Extremities: Tenderness - Mild muscular tenderness to palpation throughout the humerus and forearm. No overlying skin changes. Skin: Normal color, No rash Neurological: Alert, Oriented x3, - - Pain with range of motion of her arm. Strong distal pulses. Good sensation. Psychological: Normal affect Diagnostic/Tx/Re-eval Impressions Forearm X-Ray 02/26/19 09:53 IMPRESSION: Normal x-ray examination of the radius and ulna. Electronically Signed: Trey Zambrano MD at 10:58 EST , Service support , Hand X-Ray 02/26/19 10:02 IMPRESSION: Normal x-ray examination of the hand. Electronically Signed: Trey Zambrano MD at 10:58 EST , Service support , Humerus X-Ray 02/26/19 10:11 IMPRESSION: Normal x-ray examination of the humerus. Electronically Signed: Trey Zambrano MD at 10:59 EST , Service support , 02/26/19 09:53 Forearm 2 Views [RAD] Stat 02/26/19 10:02 Hand Min 3 Views [RAD] Stat 02/26/19 10:11 Humerus min 2 Views [RAD] Stat Laboratory Results 02/26/19 02/26/19 09:55 09:55 WBC 8.7 RBC 4.20 Hgb 13.4 Hct 39.6 MCV 94.3 MCH 31.9 MCHC 33.8 RDW Std Deviation 43.7 RDW Coeff of [place] 12.7 Plt Count 343 MPV 9.0 Immature Gran % (Auto) 0.300 Neut % (Auto) 70.5 H Lymph % (Auto) 16.1 L [place] % (Auto) 8.5 Eos % (Auto) 4.3 Baso % (Auto) 0.3 Absolute Neuts (auto) 6.1 Absolute Lymphs (auto) 1.39 Nucleated RBC % 0 ESR 31 H Sodium 140 Potassium 3.5 Chloride 106 Carbon Dioxide 29.0 Anion Gap 5 BUN 12 Creatinine 0.78 Estim Creat Clear Calc 43.77 Est GFR (MDRD) Af Amer 95 Est GFR (MDRD) Non-Af 78 BUN/Creatinine Ratio 15.3 Glucose 85 Calcium 8.6 C-React Prot Ext Range 12.60 H - Medical Decision Making Patient was given a tab of [place]. When she states this did not change her pain at all she was given a dose of morphine and Zofran to the IV. On repeat evaluat ion she states her pain is mildly improved. Test results are discussed with her. Her sed rate is unchanged when compared to December. Her CRP is slightly improved. X-rays do not reveal any bony abnormalities. Patient does have a sling at home that she will wear. I will write her a prescription for [place] for home. I offered to write her steroids but she states these make her jittery and she does not want to take them. She does have an appointment with her doctor tomorrow for follow-up. ED Disposition - Plan for ED Patient: Disposition: Home or Assisted Living Diagnosis: Right arm pain Instructions: CONTUSION, Upper Extremity Prescriptions: Hydrocodone Bitart/Apap 5-325 [[place] 5MG-325MG] 1 tablet PO Q6H PRN PRN 3 Days #10 tablet PRN Reason: Pain Transmission Status: Received by [id number] Referrals: Wilton Navas Chi, MD [Primary Care Provider] - Keep Lynnette appointment
[2019-02-26] MEDS: HYDROcodone Bitartrate/Apap 5/325 Tablet PO (09:48)
--- NOTE | 2019-02-26 09:53 | RAD_ITS ---
STUDY: X-RAY - RIGHT RADIUS AND ULNA REASON FOR EXAM: Female, 64 years old. Pain TECHNIQUE: 2 view(s) of the forearm. COMPARISON: None. FINDINGS: There is no demonstrated soft tissue swelling. Normal visualized radius. Normal visualized ulna. RAD/Forearm 2 Views IMPRESSION: Normal x-ray examination of the radius and ulna. Electronically Signed: Trey Zambrano MD at 10:58 EST , Service support ,
--- NOTE | 2019-02-26 10:02 | RAD_ITS ---
STUDY: X-RAY - RIGHT HAND REASON FOR EXAM: Female, 64 years old. Pain, stiffness TECHNIQUE: 3 view(s) of the hand. COMPARISON: 2014 FINDINGS: Normal radiocarpal articulation. Normal distal radioulnar joint. Normal visualized carpal bones. Normal carpal articulations Normal carpometacarpal articulation of the thumb. Normal second through fifth carpometacarpal joints. Normal metacarpi. Normal metacarpophalangeal joint of the thumb. Normal interphalangeal joint of the thumb. Normal proximal and distal phalanges of the thumb. Normal metacarpophalangeal joints of the second through fifth fingers. Normal proximal and distal interphalangeal joints of the second through fifth fingers. Normal phalanges of the second through fifth fingers. The soft tissue structures are unremarkable. RAD/Hand Min 3 Views IMPRESSION: Normal x-ray examination of the hand. Electronically Signed: Trey Zambrano MD at 10:58 EST , Service support ,
--- NOTE | 2019-02-26 10:11 | RAD_ITS ---
STUDY: X-RAY - RIGHT HUMERUS REASON FOR EXAM: Female, 64 years old. Pain TECHNIQUE: 2 view(s) of the humerus. COMPARISON: None. FINDINGS: Normal visualized humerus. There is no demonstrated fracture or osseous destructive process. There is no demonstrated soft tissue abnormality. RAD/Humerus min 2 Views IMPRESSION: Normal x-ray examination of the humerus. Electronically Signed: Trey Zambrano MD at 10:59 EST , Service support ,
[2019-02-26 10:15] LABS: Anion Gap 5 (5-15); BUN 12 mg/dL (7-18); BUN/Creat Ratio 15.3 RATIO (10-20); Calcium,Total 8.6 mg/dL (8.5-10.1); Chloride 106 mmol/L (98-107); Creatinine, Serum 0.78 mg/dL (0.55-1.02); EST Glomerular Filtration Rate 78 mL/min (>60); Est Glom Filt Rate - Afr Amer 95 mL/min (>60); Estimated Creatinine Clearance 43.77 ml/min; Glucose 85 mg/dL (74-106); Potassium 3.5 mmol/L (3.5-5.1); Sodium Level 140 mmol/L (136-145)
[2019-02-26 10:22] LABS: Absolute Lymphocyte Count 1.39 X10^3/uL (0.83-4.51); Absolute Neutrophil Count 6.1 X10^3/uL (2.0-7.7); Basophil# 0.03 X10^3/uL; Basophil% 0.3 % (0-1); Eosinophil# 0.37 X10^3/uL; Eosinophils% 4.3 % (0-5); Hematocrit 39.6 % (37-47); Hemoglobin 13.4 g/dL (12.0-15.0); Lymphocyte # 1.39 X10^3/ul (4.0); Lymphocyte % 16.1 % (19-41); Mean Corp Hgb Conc 33.8 g/dL (32-36); Mean Corpuscular Hgb 31.9 pg (27.0-32.0); Mean Corpuscular Volume 94.3 fL (81-99); Monocyte# 0.74 X10^3/uL; Monocyte% 8.5 % (0-10); NRBC Flagged by Analyzer 0 % (0-5); Neutrophil % 70.5 % (47-70); Platelet Count 343 K/mm3 (150-450); RBC Distribution Width CV 12.7 % (11.6-14.6); RBC Distribution Width SD 43.7 fl (35.1-43.9); White Blood Count 8.7 K/mm3 (4.4-11.0)
[2019-02-26 10:30] LABS: Erythrocyte Sedimentation Rate 31 mm/hr (0-30)
[2019-02-26 11:52] VITALS: BP 120/67; PULSE 61; RESP 18; O2SAT 98
[2019-02-26] MEDS: Ondansetron 4 MG/2 ML Vial IV (11:53)
[2019-02-26] MEDS: Morphine 4 MG/ML Syringe IV (11:53)
[2019-02-26 12:33] VITALS: BP 110/74; PULSE 67; RESP 15; O2SAT 98
== END 2019-02-26 12:48 | disposition home or self-care (01) ==
PROVIDERS: Emergency Provider Emergency Medicine; Family Provider Family Medicine Geriatric Medicine; PCP Family Medicine Geriatric Medicine
DX: M79.601 Pain in right arm (principal); M79.7 Fibromyalgia; E03.9 Hypothyroidism, unspecified; E78.00 Pure hypercholesterolemia, unspecified; K21.9 Gastro-esophageal reflux disease without esophagitis; Z79.899 Other long term (current) drug therapy; Z85.820 Personal history of malignant melanoma of skin
CPT/HCPCS: 73060; 73090; 73130; 80048; 85025; 85652; 86140; 96374; 96375; 99283; A4216; J2405

== ENCOUNTER → 2019-02-27 10:59 | Outpatient (CLI) | payer MEDICARE, OTHER, SELFPAY ==
[2019-02-26 08:43] VITALS: BMI 26.5
[2019-02-27 11:33] VITALS: BP 119/60; PULSE 72; RESP 16; TEMP 36.6; O2SAT 100; BMI 26.9
[2019-02-27] MEDS: 0.9% Normal Saline 1,000 ML 500 ML IV (11:39)
[2019-02-27] MEDS: 0.9% Normal Saline 1,000 ML 550 ML IV (13:53)
== END ==
PROVIDERS: Family Provider Family Medicine Geriatric Medicine; PCP Family Medicine Geriatric Medicine; Referring Provider Family Medicine Geriatric Medicine; Visit Provider Family Medicine Geriatric Medicine
DX: N39.0 Urinary tract infection, site not specified (principal); E86.0 Dehydration
CPT/HCPCS: 96360; 96361 ×3; 87086; 87088; J7030; A4216

== ENCOUNTER → 2019-03-13 14:38 | Outpatient (CLI) | payer MEDICARE, OTHER, SELFPAY ==
[2019-02-27 11:33] VITALS: BMI 26.9
[2019-03-13 16:44] LABS: Absolute Lymphocyte Count 1.84 X10^3/uL (0.83-4.51); Absolute Neutrophil Count 7.1 X10^3/uL (2.0-7.7); Basophil# 0.05 X10^3/uL; Basophil% 0.5 % (0-1); Eosinophil# 0.48 X10^3/uL; Eosinophils% 4.6 % (0-5); Hematocrit 41.5 % (37-47); Hemoglobin 13.5 g/dL (12.0-15.0); Lymphocyte # 1.84 X10^3/ul (4.0); Lymphocyte % 17.8 % (19-41); Mean Corp Hgb Conc 32.5 g/dL (32-36); Mean Corpuscular Hgb 31.1 pg (27.0-32.0); Mean Corpuscular Volume 95.6 fL (81-99); Mean Platelet Vol. 9.6 fl (6.2-12.0); Monocyte# 0.79 X10^3/uL; Monocyte% 7.6 % (0-10); NRBC Flagged by Analyzer 0 % (0-5); Neutrophil # 7.12 X10^3/uL (2.7-7.7); Platelet Count 447 K/mm3 (150-450); RBC Distribution Width CV 12.3 % (11.6-14.6); RBC Distribution Width SD 43.1 fl (35.1-43.9); Red Blood Count 4.34 M/mm3 (4.2-5.4); White Blood Count 10.3 K/mm3 (4.4-11.0)
[2019-03-13 17:20] LABS: Anion Gap 7 (5-15); BUN 14 mg/dL (7-18); BUN/Creat Ratio 14.2 RATIO (10-20); Calcium,Total 8.9 mg/dL (8.5-10.1); Chloride 102 mmol/L (98-107); Creatinine, Serum 0.98 mg/dL (0.55-1.02); EST Glomerular Filtration Rate 60 mL/min (>60); Est Glom Filt Rate - Afr Amer 73 mL/min (>60); Glucose 79 mg/dL (74-106); Potassium 3.5 mmol/L (3.5-5.1); Sodium Level 137 mmol/L (136-145)
[2019-03-13 17:23] LABS: Erythrocyte Sedimentation Rate 49 mm/hr (0-30)
== END ==
PROVIDERS: Family Provider Family Medicine Geriatric Medicine; PCP Family Medicine Geriatric Medicine; Visit Provider Family Medicine Geriatric Medicine
DX: M35.3 Polymyalgia rheumatica (principal); M79.609 Pain in unspecified limb
CPT/HCPCS: 36415; 80048; 85025; 85652; 86140

== ENCOUNTER → 2019-04-18 14:44 | Outpatient (CLI) | payer MEDICARE, OTHER, SELFPAY ==
[2019-02-27 11:33] VITALS: BMI 26.9
[2019-04-18 16:32] LABS: Absolute Lymphocyte Count 0.88 X10^3/uL (0.83-4.51); Absolute Neutrophil Count 12.6 X10^3/uL (2.0-7.7); Anion Gap 5 (5-15); BUN 19 mg/dL (7-18); BUN/Creat Ratio 22.1 RATIO (10-20); Basophil# 0.08 X10^3/uL; Basophil% 0.5 % (0-1); Chloride 101 mmol/L (98-107); Creatinine, Serum 0.86 mg/dL (0.55-1.02); EST Glomerular Filtration Rate 70 mL/min (>60); Eosinophil# 0.07 X10^3/uL; Eosinophils% 0.5 % (0-5); Est Glom Filt Rate - Afr Amer 85 mL/min (>60); Glucose 105 mg/dL (74-106); Hematocrit 41.7 % (37-47); Hemoglobin 13.6 g/dL (12.0-15.0); Lymphocyte # 0.88 X10^3/ul (4.0); Mean Corp Hgb Conc 32.6 g/dL (32-36); Mean Corpuscular Hgb 30.4 pg (27.0-32.0); Mean Corpuscular Volume 93.3 fL (81-99); Mean Platelet Vol. 9.2 fl (6.2-12.0); Monocyte# 0.65 X10^3/uL; Monocyte% 4.4 % (0-10); NRBC Flagged by Analyzer 0 % (0-5); Neutrophil % 85.7 % (47-70); Platelet Count 573 K/mm3 (150-450); Potassium 4.1 mmol/L (3.5-5.1); RBC Distribution Width SD 44.2 fl (35.1-43.9); Red Blood Count 4.47 M/mm3 (4.2-5.4); Sodium Level 135 mmol/L (136-145); White Blood Count 14.7 K/mm3 (4.4-11.0)
[2019-04-18 16:50] LABS: Erythrocyte Sedimentation Rate 47 mm/hr (0-30)
[2019-04-20 17:06] LABS: ANTINUCLEAR ANTIBODIES DIRECT Negative (Negative)
== END ==
PROVIDERS: PCP Family Medicine Geriatric Medicine; Visit Provider Family Medicine Geriatric Medicine
DX: M79.609 Pain in unspecified limb (principal)
CPT/HCPCS: 36415; 80048; 85025; 85652; 86038; 86140; 86431

== ENCOUNTER → 2019-04-21 09:49 | Outpatient (CLI) | payer MEDICARE, OTHER, SELFPAY ==
[2019-02-27 11:33] VITALS: BMI 26.9
--- NOTE | 2019-04-21 11:55 | NEURO ---
NCS and/or EMG Patient Report Ordering Doctor: Wilton Navas Chi DATE OF SERVICE: 04/21/19 Fiona Ervin is a 64-year-old female presents for electrodiagnostic testing of the upper limbs. She reports pain, burning and swelling in both hands. Symptoms of worsened over the past 3 months. Electrodiagnostic findings: Median motor nerve demonstrates normal distal latency, amplitude and conduction velocity bilaterally. Ulnar motor responses within normal limits bilaterally. Normal median ulnar F wave. Sensory responses are within normal limits. On needle EMG, all muscles tested in the upper limbs showed no evidence of denervation with normal motor unit action potentials. Electrodiagnostic impression: This is a normal electrodiagnostic study of the upper limbs. There is no electrodiagnostic evidence for peripheral neuropathy, including carpal tunnel syndrome. There is no electrodiagnostic evidence for cervical radiculopathy. If there are any further questions, please do not hesitate to contact me.
== END ==
PROVIDERS: Family Provider Family Medicine Geriatric Medicine; PCP Family Medicine Geriatric Medicine; Referring Provider Family Medicine Geriatric Medicine; Visit Provider Family Medicine Geriatric Medicine
DX: G56.03 Carpal tunnel syndrome, bilateral upper limbs (principal)
CPT/HCPCS: 95886; 95912

== ENCOUNTER → 2019-05-23 11:14 | Outpatient (CLI) | payer MEDICARE, OTHER, SELFPAY ==
[2019-02-27 11:33] VITALS: BMI 26.9
--- NOTE | 2019-05-23 11:21 | RAD_ITS ---
STUDY: X-RAY - LEFT WRIST REASON FOR EXAM: Pain, swelling, scleroderma, fibromyalgia. TECHNIQUE: 3 view(s) of the wrist were obtained. COMPARISON: None. FINDINGS: Normal visualized distal radius and ulna. Normal radiocarpal articulation. Normal distal radioulnar articulation. Normal carpal bones. There is moderate joint space narrowing of the triscaphe articulation. Normal carpometacarpal articulation of the thumb. Normal second through fifth carpometacarpal articulations. Normal visualized metacarpal bones. The soft tissue structures are unremarkable. RAD/Wrist min 3 Views IMPRESSION: Triscaphe arthrosis. Electronically Signed: Yury Rose MD at 10:29 EST Tel , Service support ,
--- NOTE | 2019-05-23 11:21 | RAD_ITS ---
STUDY: X-RAY - RIGHT WRIST REASON FOR EXAM: Pain, swelling, scleroderma, fibromyalgia. TECHNIQUE: 3 view(s) of the wrist were obtained. COMPARISON: Radiographs 11/26/2014. FINDINGS: Normal visualized distal radius and ulna. Normal radiocarpal articulation. Normal distal radioulnar articulation. There is a small cyst in the scaphoid as on the prior study. Otherwise, unremarkable carpal bones. Normal carpal articulations. There is interval development of moderate joint space narrowing of the carpometacarpal articulation of the thumb. Normal second through fifth carpometacarpal articulations. Normal visualized metacarpal bones. The soft tissue structures are unremarkable. RAD/Wrist min 3 Views IMPRESSION: Arthrosis of the first carpometacarpal joint. Electronically Signed: Yury Rose MD at 10:26 EST Tel , Service support ,
--- NOTE | 2019-05-23 11:21 | RAD_ITS ---
STUDY: X-RAY - RIGHT HAND REASON FOR EXAM: Pain, swelling, scleroderma, fibromyalgia. TECHNIQUE: 3 view(s) of the hand. COMPARISON: Radiographs 11/26/2014. FINDINGS: Normal radiocarpal articulation. Normal distal radioulnar joint. There is a small cyst in the scaphoid as on the prior study. Normal carpal articulations There is interval development of moderate joint space narrowing of the carpometacarpal articulation of the thumb. Normal second through fifth carpometacarpal joints. Normal metacarpi. Normal metacarpophalangeal joint of the thumb. Normal interphalangeal joint of the thumb. Normal proximal and distal phalanges of the thumb. Normal metacarpophalangeal joints of the second through fifth fingers. There is joint space narrowing of the proximal and distal interphalangeal joints of the second through fifth fingers with marginal osteophytes of the second and fifth distal interphalangeal joints similar to the prior study. Normal phalanges of the second through fifth fingers. The soft tissue structures are unremarkable. RAD/Hand Min 3 Views IMPRESSION: Arthrosis of the first carpometacarpal joint and interphalangeal joints. Electronically Signed: Yury Rose MD at 10:22 EST Tel , Service support ,
--- NOTE | 2019-05-23 11:21 | RAD_ITS ---
STUDY: X-RAY - LEFT HAND REASON FOR EXAM: Pain, swelling, scleroderma, fibromyalgia. TECHNIQUE: 3 view(s) of the hand. COMPARISON: None. FINDINGS: Normal radiocarpal articulation. Normal distal radioulnar joint. Normal visualized carpal bones. There is moderate joint space narrowing of the triscaphe articulation. Normal carpometacarpal articulation of the thumb. Normal second through fifth carpometacarpal joints. Normal metacarpi. Normal metacarpophalangeal joint of the thumb. Normal interphalangeal joint of the thumb. Normal proximal and distal phalanges of the thumb. Normal metacarpophalangeal joints of the second through fifth fingers. There is joint space narrowing of the proximal and distal interphalangeal joints of the second through fifth fingers. Normal phalanges of the second through fifth fingers. The soft tissue structures are unremarkable. RAD/Hand Min 3 Views IMPRESSION: Arthrosis of the triscaphe articulation and interphalangeal joints. Electronically Signed: Yury Rose MD at 10:42 EST Tel , Service support ,
[2019-05-23 12:37] LABS: Absolute Lymphocyte Count 1.13 X10^3/uL (0.83-4.51); Absolute Neutrophil Count 9.1 X10^3/uL (2.0-7.7); Basophil# 0.05 X10^3/uL; Basophil% 0.4 % (0-1); Eosinophil# 0.12 X10^3/uL; Hematocrit 41.5 % (37-47); Hemoglobin 13.2 g/dL (12.0-15.0); Lymphocyte # 1.13 X10^3/ul (4.0); Lymphocyte % 9.7 % (19-41); Mean Corp Hgb Conc 31.8 g/dL (32-36); Mean Corpuscular Hgb 30.1 pg (27.0-32.0); Mean Corpuscular Volume 94.5 fL (81-99); Mean Platelet Vol. 9.1 fl (6.2-12.0); Monocyte# 0.78 X10^3/uL; Monocyte% 6.7 % (0-10); NRBC Flagged by Analyzer 0 % (0-5); Neutrophil # 9.14 X10^3/uL (2.7-7.7); Neutrophil % 78.9 % (47-70); Platelet Count 503 K/mm3 (150-450); RBC Distribution Width CV 15.6 % (11.6-14.6); RBC Distribution Width SD 54.2 fl (35.1-43.9); Red Blood Count 4.39 M/mm3 (4.2-5.4); White Blood Count 11.6 K/mm3 (4.4-11.0)
[2019-05-23 12:47] LABS: Erythrocyte Sedimentation Rate 75 mm/hr (0-30)
[2019-05-23 12:50] LABS: Anion Gap 8 (5-15); BUN 18 mg/dL (7-18); BUN/Creat Ratio 23.8 RATIO (10-20); Calcium,Total 8.9 mg/dL (8.5-10.1); Chloride 103 mmol/L (98-107); Creatinine, Serum 0.76 mg/dL (0.55-1.02); EST Glomerular Filtration Rate 81 mL/min (>60); Est Glom Filt Rate - Afr Amer 98 mL/min (>60); Glucose 86 mg/dL (74-106); Potassium 4.1 mmol/L (3.5-5.1); Sodium Level 136 mmol/L (136-145); Uric Acid 3.7 mg/dL (2.6-6.0)
== END ==
PROVIDERS: PCP Family Medicine Geriatric Medicine; Referring Provider Family Medicine Geriatric Medicine; Visit Provider Family Medicine Geriatric Medicine
DX: M19.041 Primary osteoarthritis, right hand (principal); M19.042 Primary osteoarthritis, left hand; M19.032 Primary osteoarthritis, left wrist
CPT/HCPCS: 36415; 73110; 73130; 80048; 84550; 85025; 85652; 86140

== ENCOUNTER → 2019-07-10 11:00 | Outpatient (CLI) | payer MEDICARE, OTHER, SELFPAY ==
[2019-02-27 11:33] VITALS: BMI 26.9
[2019-07-10 12:38] LABS: Vitamin D,25 Hydroxy 19.2 ng/mL
[2019-07-10 12:44] LABS: ALB/GLOB Ratio 0.8 RATIO (0.9-2.4); AST(SGOT) 23 U/L (15-37); Alanine Aminotransfer ALT/SGPT 41 U/L (13-56); Albumin, Serum 2.9 g/dL (3.2-5.0); Alkaline Phosphatase 82 U/L (45-117); Anion Gap 7 (5-15); BUN 20 mg/dL (7-18); BUN/Creat Ratio 25.1 RATIO (10-20); Calcium,Total 8.7 mg/dL (8.5-10.1); Chloride 107 mmol/L (98-107); EST Glomerular Filtration Rate 76 mL/min (>60); Est Glom Filt Rate - Afr Amer 92 mL/min (>60); Globulin 3.8 g/dL (2.2-4.2); Glucose 150 mg/dL (74-106); Potassium 3.7 mmol/L (3.5-5.1); Protein, Total 6.7 g/dL (6.4-8.2); Sodium Level 140 mmol/L (136-145); Thyroid Stim Hormone (TSH) 0.66 uIU/mL (0.358-3.74)
[2019-07-10 12:49] LABS: Absolute Lymphocyte Count 0.79 X10^3/uL (0.83-4.51); Absolute Neutrophil Count 11.8 X10^3/uL (2.0-7.7); Basophil# 0.05 X10^3/uL; Basophil% 0.4 % (0-1); Eosinophils% 0.7 % (0-5); Hematocrit 39.2 % (37-47); Hemoglobin 12.7 g/dL (12.0-15.0); Lymphocyte # 0.79 X10^3/ul (4.0); Lymphocyte % 5.6 % (19-41); Mean Corp Hgb Conc 32.4 g/dL (32-36); Mean Corpuscular Hgb 31.3 pg (27.0-32.0); Mean Corpuscular Volume 96.6 fL (81-99); Mean Platelet Vol. 9.5 fl (6.2-12.0); Monocyte# 0.69 X10^3/uL; Monocyte% 4.9 % (0-10); NRBC Flagged by Analyzer 0 % (0-5); Neutrophil # 11.76 X10^3/uL (2.7-7.7); Neutrophil % 83.5 % (47-70); Platelet Count 394 K/mm3 (150-450); RBC Distribution Width CV 16.2 % (11.6-14.6); RBC Distribution Width SD 58.2 fl (35.1-43.9); Red Blood Count 4.06 M/mm3 (4.2-5.4); White Blood Count 14.1 K/mm3 (4.4-11.0)
== END ==
PROVIDERS: PCP Family Medicine Geriatric Medicine; Visit Provider Family Medicine Geriatric Medicine
DX: E55.9 Vitamin D deficiency, unspecified (principal); R53.83 Other fatigue
CPT/HCPCS: 36415; 80053; 82306; 84443; 85025

== ENCOUNTER → 2019-09-22 12:42 | Outpatient (CLI) | payer MEDICARE, OTHER, SELFPAY ==
[2019-02-27 11:33] VITALS: BMI 26.9
--- NOTE | 2019-09-22 12:47 | RAD_ITS ---
STUDY: X-RAY - LEFT HAND REASON FOR EXAM: Female, 64 years old. FELL 4 DAYS AGO, PAIN MOSTLY IN WRIST, PT UNABLE TO STRAIGHTEN FINGERS TECHNIQUE: view(s) of the hand. COMPARISON: None. FINDINGS: Normal radiocarpal articulation. Normal distal radioulnar joint. The visualized carpal bones are unremarkable. However, there is suboptimal visualization of the trapezoid. I cannot exclude a trapezoid fracture and would recommend further evaluation with CT if this is a strong clinical concern. Normal carpal articulations Normal carpometacarpal articulation of the thumb. Normal second through fifth carpometacarpal joints. Normal metacarpi. Normal metacarpophalangeal joint of the thumb. Normal interphalangeal joint of the thumb. Normal proximal and distal phalanges of the thumb. Normal metacarpophalangeal joints of the second through fifth fingers. Mild DIP joint arthrosis, PIP joints well preserved. Normal phalanges of the second through fifth fingers. The soft tissue structures are unremarkable. RAD/Hand Min 3 Views IMPRESSION: No demonstrated fracture or suspicious osseous lesion. DIP joint arthrosis The trapezoid is not well visualized, and since patient is experiencing pain in the wrist, a fracture here cannot be excluded. Recommend further evaluation with CT if this is a strong clinical concern Electronically Signed: Trey Zambrano MD at 13:47 EDT , Service support ,
--- NOTE | 2019-09-22 12:47 | RAD_ITS ---
STUDY: X-RAY - LEFT WRIST REASON FOR EXAM: Female, 64 years old. FELL 4 DAYS AGO, PAIN MOSTLY IN WRIST, PT UNABLE TO STRAIGHTEN FINGERS TECHNIQUE: 4 view(s) of the wrist were obtained. COMPARISON: 05/23/2019 FINDINGS: Normal visualized distal radius and ulna. Normal radiocarpal articulation. Normal distal radioulnar articulation. There is poor visualization of the trapezoid however this is unchanged in appearance from previous study of 05/23/2019. I do not suspect acute injury is present. Other carpal bones are normal in appearance. Normal carpal articulations. Normal carpometacarpal articulation of the thumb. Normal second through fifth carpometacarpal articulations. Normal visualized metacarpal bones. The soft tissue structures are unremarkable. RAD/Wrist min 3 Views IMPRESSION: Limited evaluation of the trapezoid however, it is unchanged when compared to a previous study from 05/23/2019 and I do not suspect an acute injury is present. Distal radius, ulna and the carpal bones are unremarkable. There is no significant soft tissue swelling Electronically Signed: Trey Zambrano MD at 13:48 EDT , Service support ,
--- NOTE | 2019-09-22 12:55 | RAD_ITS ---
STUDY: X-RAY - LEFT RADIUS AND ULNA REASON FOR EXAM: Female, 64 years old. FELL 4 DAYS AGO, PAIN MOSTLY IN WRIST, PT UNABLE TO STRAIGHTEN FINGERS TECHNIQUE: 3 view(s) of the forearm. COMPARISON: None. FINDINGS: There is no demonstrated soft tissue swelling. Normal visualized radius. Normal visualized ulna. RAD/Forearm 2 Views IMPRESSION: Normal x-ray examination of the radius and ulna. Electronically Signed: Trey Zambrano MD at 13:50 EDT , Service support ,
== END ==
PROVIDERS: PCP Family Medicine Geriatric Medicine; Referring Provider Family Medicine Geriatric Medicine; Visit Provider Family Medicine Geriatric Medicine
DX: M19.042 Primary osteoarthritis, left hand (principal)
CPT/HCPCS: 73090; 73110; 73130

== ENCOUNTER → 2019-09-28 17:33 | Outpatient (CLI) | payer MEDICARE, OTHER, SELFPAY ==
[2019-02-27 11:33] VITALS: BMI 26.9
--- NOTE | 2019-09-28 17:36 | CT_ITS ---
Study: CT of the left hand and wrist without contrast HISTORY: Pain and swelling x1 month, history rheumatoid arthritis Prior study: None. PROCEDURE: Multiple computed tomographic images of the left wrist and hand were obtained at 2.5 mm intervals using 2.5 mm thick slices in the axial projection. Coronal and sagittal reconstructions were obtained. Radiation dose: Total exam DLP: 449.98 FINDINGS: There are mild degenerative changes of the first metacarpal greater multangular joint and greater multangular-lesser multangular joint. There is no evidence of fracture, dislocation, lytic or blastic osseous process, or significant erosions. Soft tissues are within normal limits. IMPRESSION: Mild degenerative changes of the first metacarpal greater multangular joint and greater multangular-lesser multangular articulation. Soft tissues are unremarkable. If clinically indicated, MRI may be helpful for further evaluation. Electronically Signed: Jake Castrejon MD at 21:58 EDT , Service support , CT/Extremity Upper without Contra
== END ==
PROVIDERS: PCP Family Medicine Geriatric Medicine; Referring Provider Family Medicine Geriatric Medicine; Visit Provider Family Medicine Geriatric Medicine
DX: M25.539 Pain in unspecified wrist (principal)
CPT/HCPCS: 73200

== ENCOUNTER → 2019-10-09 10:19 | Outpatient (CLI) | payer MEDICARE, OTHER, SELFPAY ==
[2019-02-27 11:33] VITALS: BMI 26.9
[2019-10-09 12:47] LABS: Absolute Lymphocyte Count 1.45 X10^3/uL (0.83-4.51); Absolute Neutrophil Count 8.4 X10^3/uL (2.0-7.7); Basophil# 0.06 X10^3/uL; Basophil% 0.5 % (0-1); Eosinophil# 0.17 X10^3/uL; Eosinophils% 1.5 % (0-5); Hematocrit 38.4 % (37-47); Hemoglobin 12.2 g/dL (12.0-15.0); Lymphocyte # 1.45 X10^3/ul (4.0); Lymphocyte % 13.1 % (19-41); Mean Corp Hgb Conc 31.8 g/dL (32-36); Mean Corpuscular Hgb 33.4 pg (27.0-32.0); Mean Corpuscular Volume 105.2 fL (81-99); Monocyte# 0.82 X10^3/uL; Monocyte% 7.4 % (0-10); NRBC Flagged by Analyzer 0 % (0-5); Neutrophil # 8.36 X10^3/uL (2.7-7.7); Neutrophil % 75.8 % (47-70); Platelet Count 611 K/mm3 (150-450); RBC Distribution Width SD 61.1 fl (35.1-43.9); Red Blood Count 3.65 M/mm3 (4.2-5.4); White Blood Count 11.1 K/mm3 (4.4-11.0)
[2019-10-09 13:14] LABS: ALB/GLOB Ratio 0.7 RATIO (0.9-2.4); AST(SGOT) 18 U/L (15-37); Alanine Aminotransfer ALT/SGPT 20 U/L (13-56); Alkaline Phosphatase 80 U/L (45-117); Anion Gap 8 (5-15); BUN 14 mg/dL (7-18); Calcium,Total 8.8 mg/dL (8.5-10.1); Chloride 105 mmol/L (98-107); Creatinine, Serum 0.78 mg/dL (0.55-1.02); EST Glomerular Filtration Rate 79 mL/min (>60); Est Glom Filt Rate - Afr Amer 95 mL/min (>60); Globulin 4.5 g/dL (2.2-4.2); Glucose 82 mg/dL (74-106); Potassium 3.7 mmol/L (3.5-5.1); Protein, Total 7.5 g/dL (6.4-8.2); Sodium Level 140 mmol/L (136-145); Thyroid Stim Hormone (TSH) 7.54 uIU/mL (0.358-3.74)
== END ==
PROVIDERS: PCP Family Medicine Geriatric Medicine; Visit Provider Family Medicine Geriatric Medicine
DX: E55.9 Vitamin D deficiency, unspecified (principal); R53.83 Other fatigue
CPT/HCPCS: 36415; 80053; 82306; 84443; 85025

== ENCOUNTER → 2019-10-12 09:02 | Outpatient (CLI) | payer MEDICARE, OTHER, SELFPAY ==
[2019-02-27 11:33] VITALS: BMI 26.9
--- NOTE | 2019-10-12 09:04 | RAD_ITS ---
STUDY: X-RAY - ESOPHAGUS (BARIUM SWALLOW) WITH FLUOROSCOPY REASON FOR EXAM: Female, 64 years old. DYSPHAGIA. 22 FL SPOTS TECHNIQUE: 22 view(s) of the esophagus were obtained following swallowing of barium. FLUOROSCOPY TIME (if supplied): (0:41) minutes/seconds COMPARISON: Comparison is made with prior study of October 13, 2013. FINDINGS: There is no demonstrated esophageal foreign body. There is circumferential narrowing of the distal esophagus at the level of the gastric esophageal junction. No evidence of reflux. Numerous tertiary contractions were identified. The patient ingested a 12 mm tablet of barium. The tablet is trapped at the gastroesophageal junction. Normal visualized aortic arch and descending thoracic aorta. Normal visualized pulmonary parenchyma. Normal visualized osseous structures of the thorax. RAD/Esophagus Dual Contrast IMPRESSION: Tight circumferential stenosis of the distal esophagus at the gastroesophageal junction with trapping of the 12 mm tablet of barium. Electronically Signed: Chicho Hercules, at 13:53 EDT , Service support ,
== END ==
PROVIDERS: PCP Family Medicine Geriatric Medicine; Referring Provider Internal Medicine Gastroenterology; Visit Provider Internal Medicine Gastroenterology
DX: R13.10 Dysphagia, unspecified (principal)
CPT/HCPCS: 74221

== ENCOUNTER → 2019-10-17 17:49 | Outpatient (CLI) | payer MEDICARE, OTHER, SELFPAY ==
[2019-02-27 11:33] VITALS: BMI 26.9
== END ==
PROVIDERS: PCP Family Medicine Geriatric Medicine; Referring Provider Internal Medicine Gastroenterology; Visit Provider Internal Medicine Gastroenterology
DX: Z11.59 Encounter for screening for other viral diseases (principal)
CPT/HCPCS: 87635; G2023; U0003

== ENCOUNTER → 2019-11-21 11:26 | Outpatient (CLI) | payer MEDICARE, OTHER, SELFPAY ==
[2019-02-27 11:33] VITALS: BMI 26.9
[2019-11-21 13:32] LABS: Thyroid Stim Hormone (TSH) 2.19 uIU/mL (0.358-3.74)
== END ==
PROVIDERS: PCP Family Medicine Geriatric Medicine; Visit Provider Family Medicine Geriatric Medicine
DX: E03.9 Hypothyroidism, unspecified (principal)
CPT/HCPCS: 36415; 84443

== ENCOUNTER 2019-11-26 07:12 | Emergency (ER) | payer MEDICARE, OTHER, SELFPAY ==
[2019-02-27 11:33] VITALS: BMI 26.9
[2019-11-26 07:13] VITALS: BP 140/95; PULSE 96; RESP 19; TEMP 36.2; O2SAT 100; BMI 26.0
--- NOTE | 2019-11-26 07:22 | EKG12_ITS ---
Test Reason : Blood Pressure : / mmHG Vent. Rate : 078 BPM Atrial Rate : 078 BPM P-R Int : 158 ms QRS Dur : 080 ms QT Int : 416 ms P-R-T Axes : 060 005 041 degrees QTc Int : 474 ms Normal sinus rhythm Low voltage QRS (Limb Leads) Poor R wave progression Confirmed by TOSHIA CEBALLOS, OPAL ([id number]), editor magazine JASON CAIN ([id number]) on 11/30/2019 11:32:41 AM Referred By: CL Confirmed By:OPAL POPE MD
--- NOTE | 2019-11-26 07:22 | CT_ITS ---
STUDY: CT ABDOMEN AND PELVIS WITHOUT CONTRAST REASON FOR EXAM: Female, 64 years old. N/V X 1 DAY, EPIGASTRIC PAIN, SURG-APPY, MALVIN/BSO, HERNIA REPAIR RADIATION DOSAGE (If Supplied By Facility): CTDIvol = ( 10.88 ) mGy, DLP = ( 569.07 ) mGycm TECHNIQUE: Transaxial images were obtained from the dome of the diaphragm to the symphysis pubis without oral contrast, and without intravenous contrast. Sagittal and coronal images were reconstructed. Individualized dose optimization techniques were used for this CT. COMPARISON: 07/22/2018 FINDINGS: The visualized lung bases demonstrate nodular scarring. The visualized portions of the heart are within normal limits. Small cysts in the liver. Normal gallbladder and extrahepatic biliary system. Normal spleen. Normal pancreas. Normal bilateral adrenal glands. Normal right kidney. Normal left kidney. Normal visualized stomach. Mild distal esophageal wall thickening. Normal small intestine. Normal colon. The appendix is not visualized. Normal abdominal aorta. Normal inferior vena cava. Normal retroperitoneum. Normal urinary bladder. Normal abdominal wall. Normal osseous structures. CT/Abdomen/Pelvis W IV Cont ONLY IMPRESSION: Mild distal esophageal wall thickening. Small hepatic cysts. Electronically Signed: Carl Trinidad DO at 9:22 EDT Tel [phone], Service support ,
--- NOTE | 2019-11-26 07:25 | ED.DCSUM_ITS ---
History of Present Illness Chief Complaint: Nausea/Vomiting Onset: Yesterday Narrative: 64-year-old female with past medical history of rheumatoid arthritis presents with concern for nausea and vomiting. States that it began yesterday afternoon. States that she also began having epigastric pain which she describes as aching and nonradiating. States that she has had at least 12 episodes of vomiting. Denies any urinary symptoms. Admits to chills without fever. Denies any vaginal bleeding or discharge. States that she is currently taking methotrexate. Past Medical History - Allergies and Home Meds Allergies/Adverse Reactions: Allergies No Known Allergies Allergy (Verified 11/26/19 07:13) Primary Care Physician: Wilton Navas Chi, MD [Primary Care Provider] - Past Medical History: - - RA Surgical History: appendectomy, herniorrhaphy Smoking Status: Never smoker Alcohol: None Drugs: None Review of Systems General: Reports: Chills. Denies: Fever, Sweats Eyes: Denies: Visual changes - bilaterally, Diplopia ENT: Denies: Rhinorrhea, Sore throat Cardiovascular: Denies: Chest pain, Palpitations Respiratory: Denies: Dyspnea, Cough, Dyspnea on exertion Gastrointestinal: Reports: Abdominal pain, Nausea, Vomiting. Denies: Diarrhea, Melena, Hematochezia Genitourinary: Denies: Dysuria, Hematuria, Frequency Musculoskeletal: Denies: Back pain, Extremity Pain Skin: Denies: Rash, Wounds Neurological: Denies: Headache, Weakness, Numbness Physical Exam Vital Signs/Narrative: Vital Signs Temp Pulse Resp BP Pulse Ox 11/26/19 07:13 97.1 F L 96 19 H 140/95 H 100 Inital Vital Signs reviewed: Yes General: Well nourished, Well developed, No Acute Distress Head: Normocephalic, Atraumatic Eyes: Perrl, EOMI ENT: Moist mucous membranes, No rhinorrhea Neck: Supple, Nontender Cardiovascular: Regular rate, Regular rhythm, No murmurs Respiratory: No distress, CTA bilaterally, Chest nontender Abdomen: Soft, Nondistended, Normal bowel sounds, - - Tenderness to palpation in the upper epigastrium. No rebound or guarding. Back: Nontender, Normal Inspection Extremities: Nontender, No edema Skin: Normal color, No rash Neurological: Alert, Oriented x3, Cranial nerves II-XII grossly intact, Normal Strength, Normal Sensation Psychological: Normal affect, Normal Mood Diagnostic/Tx/Re-eval Clinical Impression(s) from Imaging Studies Abdomen/Pelvis CT 11/26/19 07:22 IMPRESSION: Mild distal esophageal wall thickening. Small hepatic cysts. Electronically Signed: Carl Trinidad DO at 9:22 EDT Tel [phone], Service support , Laboratory Data 11/26/19 11/26/19 11/26/19 07:30 07:30 07:30 WBC 9.3 RBC 4.44 Hgb 13.8 Hct 43.7 MCV 98.4 MCH 31.1 MCHC 31.6 L RDW Std Deviation 54.9 H RDW Coeff of [place] 15.6 H Plt Count 631 H MPV 8.8 Immature Gran % (Auto) 0.500 Neut % (Auto) 76.5 H Lymph % (Auto) 15.4 L [place] % (Auto) 6.1 Eos % (Auto) 1.0 Baso % (Auto) 0.5 Absolute Neuts (auto) 7.1 Absolute Lymphs (auto) 1.44 Nucleated RBC % 0 Sodium 139 Potassium 3.6 Chloride 103 Carbon Dioxide 29.0 Anion Gap 7 BUN 11 Creatinine 0.80 Estim Creat Clear Calc 54.71 Est GFR (MDRD) Af Amer 93 Est GFR (MDRD) Non-Af 77 BUN/Creatinine Ratio 13.8 Glucose 90 Calcium 9.3 Total Bilirubin 0.60 AST 19 ALT 23 Alkaline Phosphatase 83 Troponin I < 0.015 Total Protein 8.0 Albumin 3.6 Globulin 4.4 H Albumin/Globulin Ratio 0.8 L Lipase 103 Urine Color Yellow Urine Clarity Clear Urine pH 8.0 Ur Specific [place] 1.015 Urine Protein Negative Urine Glucose (UA) Normal Urine Ketones Negative Urine Occult Blood 25 H Urine Nitrite Negative Urine Bilirubin Negative Urine Urobilinogen Normal Ur Leukocyte Esterase Negative Urine RBC 0-5 SEEN Urine WBC 0-5 SEEN Ur Squamous Epith Cells 0-5 SEEN Urine Bacteria 2+ Urine Mucus 0 SEEN - Rhythm Strip Rhythm Strip: Sinus Rhythm Rate: 78 Ectopy: None - EKG Initial EKG Interpretation: Sinus Rhythm - Sinus rhythm at 78 bpm. AR interval 158 ms. QTC of 474 ms. No evidence of ST elevation or depression at this time. Prior: Unchanged - from 05/13/16 - Medical Decision Making Patient appears well nontoxic. Tenderness palpation in the upper epigastrium. Lab work within normal limits. CT negative. Patient was first given Zofran, morphine, fluids. Continue to be nauseous but her pain was controlled. Was then given Phenergan which did control her. Patient's urine shows no evidence of infection. Spoke with the patient who does wish to be discharged home. Will be given Zofran for home and advised on continued p.o. hydration. Asked to return for continued abdominal pain or vomiting. Patient agreeable and discharged home in stable condition. ED Disposition - Plan for ED Patient: Disposition: Home or Assisted Living Instructions: ED Nausea Vomiting Adult Prescriptions: Ondansetron [Zofran Odt] 4 mg PO Q8H PRN PRN #10 tab PRN Reason: Nausea Transmission Status: Received by [facility]/pharmacy #[id number] Referrals: Wilton Navas Chi, MD [Primary Care Provider] -
[2019-11-26] MEDS: 0.9% Normal Saline 1,000 ML 1000 ML IV (07:36)
[2019-11-26] MEDS: Morphine 4 MG/ML Syringe IV (07:36)
[2019-11-26] MEDS: Ondansetron 4 MG/2 ML Vial IV (07:37)
[2019-11-26 07:46] LABS: Mucous, Urine 0 SEEN /hpf (<or=2+)
[2019-11-26 07:52] LABS: Absolute Lymphocyte Count 1.44 X10^3/uL (0.83-4.51); Absolute Neutrophil Count 7.1 X10^3/uL (2.0-7.7); Basophil# 0.05 X10^3/uL; Basophil% 0.5 % (0-1); Eosinophil# 0.09 X10^3/uL; Hematocrit 43.7 % (37-47); Hemoglobin 13.8 g/dL (12.0-15.0); Lymphocyte # 1.44 X10^3/ul (4.0); Lymphocyte % 15.4 % (19-41); Mean Corp Hgb Conc 31.6 g/dL (32-36); Mean Corpuscular Hgb 31.1 pg (27.0-32.0); Mean Corpuscular Volume 98.4 fL (81-99); Mean Platelet Vol. 8.8 fl (6.2-12.0); Monocyte# 0.57 X10^3/uL; Monocyte% 6.1 % (0-10); NRBC Flagged by Analyzer 0 % (0-5); Neutrophil # 7.14 X10^3/uL (2.7-7.7); Neutrophil % 76.5 % (47-70); Platelet Count 631 K/mm3 (150-450); RBC Distribution Width CV 15.6 % (11.6-14.6); RBC Distribution Width SD 54.9 fl (35.1-43.9); Red Blood Count 4.44 M/mm3 (4.2-5.4); White Blood Count 9.3 K/mm3 (4.4-11.0)
[2019-11-26 08:03] LABS: Color, Urine Yellow (Yellow); Glucose, Dipstick Normal (Normal); Ketone-Dipstick Negative (Negative); Leukocyte Esterase-Dipstick Negative /ul (Negative); Nitrite-Dipstick Negative (Negative); Occult Blood-Urine 25 /ul (Negative); Protein-Dipstick Negative (Negative); Specific Gravity, Urine 1.015 (1.002-1.030); Urine Bilirubin Dipstick Negative (Negative); Urine Clarity Clear (Clear); Urine Urobilinogen Normal (Normal)
[2019-11-26 08:06] LABS: ALB/GLOB Ratio 0.8 RATIO (0.9-2.4); AST(SGOT) 19 U/L (15-37); Alanine Aminotransfer ALT/SGPT 23 U/L (13-56); Albumin, Serum 3.6 g/dL (3.2-5.0); Alkaline Phosphatase 83 U/L (45-117); Anion Gap 7 (5-15); BUN 11 mg/dL (7-18); BUN/Creat Ratio 13.8 RATIO (10-20); Calcium,Total 9.3 mg/dL (8.5-10.1); Chloride 103 mmol/L (98-107); EST Glomerular Filtration Rate 77 mL/min (>60); Est Glom Filt Rate - Afr Amer 93 mL/min (>60); Estimated Creatinine Clearance 54.71 ml/min; Globulin 4.4 g/dL (2.2-4.2); Glucose 90 mg/dL (74-106); Lipase 103 U/L (73-393); Potassium 3.6 mmol/L (3.5-5.1); Sodium Level 139 mmol/L (136-145)
[2019-11-26 08:27] LABS: Bacteria 2+ /hpf (None Seen); Red Blood Cells-Urine 0-5 SEEN /hpf (0-5); Squamous Epithelial Cells - UA 0-5 SEEN /hpf (5-10); White Blood Cells 0-5 SEEN /hpf (0-5)
[2019-11-26] MEDS: proMETHazine 25 MG/ML Syringe 6.25 MG IV (09:58)
[2019-11-26 10:00] VITALS: BP 114/73; PULSE 66; RESP 18
[2019-11-26 11:09] VITALS: BP 127/69; PULSE 64; RESP 14
== END 2019-11-26 11:10 | disposition home or self-care (01) ==
PROVIDERS: Emergency Provider Emergency Medicine; PCP Family Medicine Geriatric Medicine
DX: R11.2 Nausea with vomiting, unspecified (principal); R10.13 Epigastric pain; M06.9 Rheumatoid arthritis, unspecified
CPT/HCPCS: 74177; 80053; 81001; 83690; 84484; 85025; 93005; 96361; 96374; 96375; 99283; J7030; Q9967; A4216; J2405

== ENCOUNTER 2019-12-03 19:33 | Emergency (ER) | payer MEDICARE, OTHER, SELFPAY ==
[2019-12-03 19:33] VITALS: BP 142/77; PULSE 72; RESP 16; TEMP 36.3; O2SAT 98; BMI 25.6
--- NOTE | 2019-12-03 19:48 | ED.VIS.GI ---
History of Present Illness Chief Complaint: Nausea/Vomiting/Diarrhea Informant: Patient - Abdominal Pain/Flank Pain Onset: Yesterday Context: Gradual Onset Timing: Continuous Quality: - - sore upper abd due to vomiting so much, I think Location: Epigastric Current Severity: Severe Maximum Severity: Severe Worsened by: Food Relieved by: Nothing - tried zofran - Nausea/Vomiting/Emesis GI Symptom: Nausea, Vomiting Onset: Yesterday Quality: Nonbilious. Negative for: Blood streaks, Coffee ground, Hematemesis Severity: Severe - Diarrhea/Melena/Hematochezia GI Symptom: Diarrhea. Negative for: Melena, Hematochezia Onset: Yesterday Stool Quality: Watery Severity: Severe Associated Symptoms: - - decreased UOP today, but is urinating. Negative for: Dysuria, Frequency, Hematuria, Urgency Narrative: Patient states she had nausea and vomiting along with the epigastric soreness this past week and was seen here, had testing including a CT that was unremarkable, eventually her symptoms resolved but then restarted yesterday. No recent travel out of the area. She has not had COVID-19 or been around anybody with it that she knows of. Denies any sick contacts with similar symptoms that she knows of. No recent antibiotics in the past month or 2. Denies any suspicion for food poisoning or suspicious ingestions. No recent medication changes or overdoses. No fevers or chills. No myalgias. No thoracic symptoms or dyspnea. States her back hurts a little, but thinks it is soreness due to all of the vomiting, which is how she describes her upper abdominal discomfort. She has had prior cholecystectomy, hysterectomy, and herniorrhaphy. - Past Medical History (1) Fibromyalgia Status: Chronic (2) GERD (gastroesophageal reflux disease) Status: Chronic (3) High cholesterol Status: Chronic (4) Hypothyroidism Status: Chronic (5) Melanoma Status: Chronic (6) Scleroderma Status: Chronic Past Medical History - Allergies and Home Meds Allergies/Adverse Reactions: Allergies No Known Allergies Allergy (Verified 12/03/19 19:35) Primary Care Physician: Wilton Navas Chi, MD [Primary Care Provider] - Surgical History: appendectomy, herniorrhaphy Smoking Status: Never smoker Alcohol: None Review of Systems General: Reports: Malaise. Denies: Chills, Fever, Sweats Eyes: Denies: Visual changes - bilaterally, Diplopia ENT: Denies: Rhinorrhea, Sore throat Cardiovascular: Denies: Chest pain, Palpitations Respiratory: Denies: Dyspnea, Cough, Dyspnea on exertion Gastrointestinal: Reports: Abdominal pain, Nausea, Vomiting, Diarrhea. Denies: Melena, Hematochezia Genitourinary: Denies: Dysuria, Hematuria, Frequency Musculoskeletal: Reports: Back pain. Denies: Neck pain, Swelling, Extremity Pain Skin: Denies: Rash, Wounds Neurological: Denies: Headache, Weakness, Numbness Physical Exam Vital Signs/Narrative: Vital Signs Temp Pulse Resp BP Pulse Ox 12/03/19 19:33 97.3 F L 72 16 142/77 H 98 Inital Vital Signs reviewed: Yes General: Well nourished, Well developed, No Acute Distress Head: Normocephalic, Atraumatic Eyes: Perrl, EOMI ENT: Moist mucous membranes, No rhinorrhea Neck: Supple, Nontender Cardiovascular: Regular rate, Regular rhythm, No murmurs Respiratory: No distress, CTA bilaterally, Chest nontender Abdomen: Soft, Nondistended, Normal bowel sounds, Tender - Epigastrium mild, otherwise benign Back: Nontender, Normal Inspection. Negative for: CVA tenderness Extremities: Nontender, No edema. Negative for: Calf Tenderness Skin: Normal color, No rash, No Trauma Neurological: Alert, Oriented x3, Cranial nerves II-XII grossly intact, Normal Strength, Normal Sensation Psychological: Normal affect, Normal Mood Diagnostic/Tx/Re-eval Laboratory Results 12/03/19 12/03/19 12/03/19 19:40 19:40 20:40 WBC 7.5 RBC 4.15 L Hgb 13.1 Hct 41.4 MCV 99.8 H MCH 31.6 MCHC 31.6 L RDW Std Deviation 56.0 H RDW Coeff of [place] 15.7 H Plt Count 518 H MPV 9.0 Immature Gran % (Auto) 0.800 Neut % (Auto) 70.7 H Lymph % (Auto) 17.1 L [place] % (Auto) 8.5 Eos % (Auto) 2.4 Baso % (Auto) 0.5 Absolute Neuts (auto) 5.3 Absolute Lymphs (auto) 1.29 Nucleated RBC % 0 Sodium 142 Potassium 3.6 Chloride 105 Carbon Dioxide 30.0 Anion Gap 7 BUN 9 Creatinine 0.86 Estim Creat Clear Calc 50.89 Est GFR (MDRD) Af Amer 85 Est GFR (MDRD) Non-Af 70 BUN/Creatinine Ratio 10.5 Glucose 110 H Calcium 9.4 Total Bilirubin 0.70 AST 22 ALT 21 Alkaline Phosphatase 90 Total Protein 7.8 Albumin 3.5 Globulin 4.3 H Albumin/Globulin Ratio 0.8 L Lipase 72 L Urine Color [place] Urine Clarity Sl. Cloudy Urine pH 6.0 Ur Specific [place] 1.025 Urine Protein 30 H Urine Glucose (UA) Normal Urine Ketones 15 H Urine Occult Blood 50 H Urine Nitrite Negative Urine Bilirubin 1 H Urine Urobilinogen 1 H Ur Leukocyte Esterase 25 H Urine RBC 0-5 SEEN Urine WBC 0-5 SEEN Ur Squamous Epith Cells 5-10 SEEN Ur Renal Epithelial Cell 0-5 SEEN Amorphous Sediment 1+ Urine Bacteria 2+ Urine Mucus 4+ - Medical Decision Making Work-up is unremarkable, showing nothing that explains patient's symptoms. She had a CT abdomen/pelvis for the same symptoms, except the diarrhea, last week and it was basically unremarkable so I do not think that needs to be repeated since she has a fairly benign abdominal exam and the patient was in agreement with that. She was treated with IV fluids, Reglan, and was feeling better after that. She tolerated oral fluids so she was agreeable to a GI cocktail to help settle her stomach. Attempted to order stool studies, however she was not able to have specimen here. She was offered to wait until she was able to provide one, however she prefers to go home and accepts an offer to take a stool collection kit home along with a prescription for the desired testing and she will try to follow-up with her doctor. Prescribed Phenergan to use at home since she states that Zofran really was not helping much. Discussed reasons to return she is comfortable with that plan. ED Disposition - Plan for ED Patient: Disposition: Home or Assisted Living Diagnosis: Gastroenteritis Instructions: ED Vomiting and Diarrhea Nonspecific Adult Prescriptions: proMETHazine tablet [Phenergan] 25 mg PO Q6H PRN PRN #14 tab PRN Reason: Nausea Prescription Printed Referrals: Wilton Navas Chi, MD [Primary Care Provider] - 3-5 Days if not improving
[2019-12-03 20:07] LABS: Absolute Lymphocyte Count 1.29 X10^3/uL (0.83-4.51); Absolute Neutrophil Count 5.3 X10^3/uL (2.0-7.7); Basophil# 0.04 X10^3/uL; Basophil% 0.5 % (0-1); Eosinophil# 0.18 X10^3/uL; Eosinophils% 2.4 % (0-5); Hematocrit 41.4 % (37-47); Hemoglobin 13.1 g/dL (12.0-15.0); Lymphocyte # 1.29 X10^3/ul (4.0); Lymphocyte % 17.1 % (19-41); Mean Corp Hgb Conc 31.6 g/dL (32-36); Mean Corpuscular Hgb 31.6 pg (27.0-32.0); Mean Corpuscular Volume 99.8 fL (81-99); Monocyte# 0.64 X10^3/uL; Monocyte% 8.5 % (0-10); NRBC Flagged by Analyzer 0 % (0-5); Neutrophil # 5.32 X10^3/uL (2.7-7.7); Neutrophil % 70.7 % (47-70); Platelet Count 518 K/mm3 (150-450); RBC Distribution Width CV 15.7 % (11.6-14.6); Red Blood Count 4.15 M/mm3 (4.2-5.4); White Blood Count 7.5 K/mm3 (4.4-11.0)
[2019-12-03] MEDS: Metoclopramide 10 MG/2 ML Vial IV (20:07)
[2019-12-03] MEDS: 0.9% Normal Saline 1,000 ML 1000 ML IV (20:08)
[2019-12-03 20:26] LABS: ALB/GLOB Ratio 0.8 RATIO (0.9-2.4); AST(SGOT) 22 U/L (15-37); Alanine Aminotransfer ALT/SGPT 21 U/L (13-56); Albumin, Serum 3.5 g/dL (3.2-5.0); Alkaline Phosphatase 90 U/L (45-117); Anion Gap 7 (5-15); BUN 9 mg/dL (7-18); BUN/Creat Ratio 10.5 RATIO (10-20); Calcium,Total 9.4 mg/dL (8.5-10.1); Chloride 105 mmol/L (98-107); Creatinine, Serum 0.86 mg/dL (0.55-1.02); EST Glomerular Filtration Rate 70 mL/min (>60); Est Glom Filt Rate - Afr Amer 85 mL/min (>60); Estimated Creatinine Clearance 50.89 ml/min; Globulin 4.3 g/dL (2.2-4.2); Glucose 110 mg/dL (74-106); Lipase 72 U/L (73-393); Potassium 3.6 mmol/L (3.5-5.1); Protein, Total 7.8 g/dL (6.4-8.2); Sodium Level 142 mmol/L (136-145)
[2019-12-03 21:10] LABS: Color, Urine Amber (Yellow); Glucose, Dipstick Normal (Normal); Ketone-Dipstick 15 mg/dl (Negative); Leukocyte Esterase-Dipstick 25 /ul (Negative); Nitrite-Dipstick Negative (Negative); Occult Blood-Urine 50 /ul (Negative); Protein-Dipstick 30 mg/dl (Negative); Specific Gravity, Urine 1.025 (1.002-1.030); Urine Clarity Sl. Cloudy (Clear); Urine Urobilinogen 1 mg/dl (Normal)
[2019-12-03 21:24] LABS: Urine Bilirubin Dipstick 1 mg/dL (Negative)
[2019-12-03 21:25] LABS: Bacteria 2+ /hpf (None Seen); Red Blood Cells-Urine 0-5 SEEN /hpf (0-5); Renal Epithelial Cells 0-5 SEEN /hpf (0-5); Squamous Epithelial Cells - UA 5-10 SEEN /hpf (5-10); White Blood Cells 0-5 SEEN /hpf (0-5)
[2019-12-03 21:26] LABS: Amorphous Sediment 1+; Mucous, Urine 4+ /hpf (<or=2+)
[2019-12-03] MEDS: Mag Hydrox/Al Hydrox/Simeth 30 ML UDC PO (21:43)
[2019-12-03 21:46] VITALS: BP 146/97; PULSE 74; RESP 17; O2SAT 96
== END 2019-12-03 21:55 | disposition home or self-care (01) ==
PROVIDERS: Emergency Provider Emergency Medicine; PCP Family Medicine Geriatric Medicine
DX: K52.9 Noninfective gastroenteritis and colitis, unspecified (principal); M79.7 Fibromyalgia; E03.9 Hypothyroidism, unspecified; K21.9 Gastro-esophageal reflux disease without esophagitis; E78.00 Pure hypercholesterolemia, unspecified; Z79.899 Other long term (current) drug therapy
CPT/HCPCS: 80053; 81001; 83690; 85025; 96361; 96374; 99284; J7030; A4216

== ENCOUNTER → 2019-12-05 16:58 | Outpatient (CLI) | payer MEDICARE, OTHER, SELFPAY ==
[2019-12-03 19:33] VITALS: BMI 25.6
--- NOTE | 2019-12-05 17:18 | RAD_ITS ---
STUDY: X-RAY - ABDOMEN/PELVIS REASON FOR EXAM: Female, 64 years old. patient complains of nausea and diarrhea x 2 weeks TECHNIQUE: AP supine and upright views of the abdomen and pelvis. COMPARISON: Prior study of 02/01/2018 FINDINGS: Normal visualized lung bases. There is an unremarkable bowel gas pattern. There is no demonstrated free abdominal air. There are tiny stippled radiopacities overlying the hepatic silhouette which are of unknown etiology or significance. The visualized liver, spleen and kidneys are grossly normal in size and morphology. Normal soft tissue structures. Normal visualized osseous structures. RAD/Abd Inc Decub and/or Erect IMPRESSION: No evidence of ileus, obstruction, or free intraperitoneal air. The osseous structures are unremarkable. Tiny stippled radiopacities overlying the hepatic silhouette which are of unknown etiology or significance. No abnormal intra-abdominal calcifications were identified on recent CT study of 11/26/2019. Electronically Signed: Jake Castrejon MD at 17:48 EDT , Service support ,
[2019-12-05 17:31] LABS: Absolute Lymphocyte Count 1.13 X10^3/uL (0.83-4.51); Absolute Neutrophil Count 5.5 X10^3/uL (2.0-7.7); Basophil# 0.06 X10^3/uL; Basophil% 0.8 % (0-1); Eosinophil# 0.13 X10^3/uL; Eosinophils% 1.7 % (0-5); Hemoglobin 13.1 g/dL (12.0-15.0); Lymphocyte # 1.13 X10^3/ul (4.0); Lymphocyte % 14.5 % (19-41); Mean Corp Hgb Conc 30.5 g/dL (32-36); Mean Corpuscular Hgb 31.6 pg (27.0-32.0); Mean Corpuscular Volume 103.6 fL (81-99); Mean Platelet Vol. 10.5 fl (6.2-12.0); Monocyte# 0.89 X10^3/uL; Monocyte% 11.4 % (0-10); NRBC Flagged by Analyzer 0 % (0-5); Neutrophil % 70.2 % (47-70); Platelet Count 364 K/mm3 (150-450); RBC Distribution Width CV 15.9 % (11.6-14.6); RBC Distribution Width SD 59.5 fl (35.1-43.9); Red Blood Count 4.15 M/mm3 (4.2-5.4); White Blood Count 7.8 K/mm3 (4.4-11.0)
[2019-12-05 18:25] LABS: ALB/GLOB Ratio 0.8 RATIO (0.9-2.4); AST(SGOT) 24 U/L (15-37); Alanine Aminotransfer ALT/SGPT 19 U/L (13-56); Albumin, Serum 3.3 g/dL (3.2-5.0); Alkaline Phosphatase 79 U/L (45-117); Anion Gap 7 (5-15); BUN 9 mg/dL (7-18); BUN/Creat Ratio 9.6 RATIO (10-20); Chloride 110 mmol/L (98-107); Creatinine, Serum 0.93 mg/dL (0.55-1.02); EST Glomerular Filtration Rate 64 mL/min (>60); Est Glom Filt Rate - Afr Amer 77 mL/min (>60); Glucose 109 mg/dL (74-106); Potassium 3.1 mmol/L (3.5-5.1); Protein, Total 7.3 g/dL (6.4-8.2); Sodium Level 140 mmol/L (136-145)
== END ==
PROVIDERS: PCP Family Medicine Geriatric Medicine; Referring Provider Family Medicine Geriatric Medicine; Visit Provider Family Medicine Geriatric Medicine
DX: R63.0 Anorexia (principal); K56.41 Fecal impaction
CPT/HCPCS: 36415; 74019; 80053; 85025

== ENCOUNTER → 2019-12-06 12:09 | Outpatient (CLI) | payer MEDICARE, OTHER, SELFPAY ==
[2019-12-03 19:33] VITALS: BMI 25.6
== END ==
PROVIDERS: PCP Family Medicine Geriatric Medicine; Referring Provider Family Medicine Geriatric Medicine; Visit Provider Family Medicine Geriatric Medicine
DX: E86.0 Dehydration (principal)
CPT/HCPCS: 99211; A4216; G0463

== ENCOUNTER 2019-12-23 05:06 | Emergency (ER) | payer MEDICARE, OTHER, SELFPAY ==
[2019-12-23 05:08] VITALS: BP 146/77; PULSE 79; RESP 18; TEMP 36.4; O2SAT 93; BMI 25.3
--- NOTE | 2019-12-23 05:23 | CT_ITS ---
STUDY: CT BRAIN WITHOUT CONTRAST REASON FOR EXAM: Female, 64 years old. HEADACHE,NAUSEA AND VOMITING SINCE LAST NIGHT -- HX:HYPOTHYROIDISM,MIGRAINES,MELANOMA,SCLERODERMA,RHEUMATIC FEVER RADIATION DOSAGE (If Supplied By Facility): CTDIvol = ( 44.99 ) mGy, DLP = ( 745.49 ) mGycm TECHNIQUE: Transaxial CT imaging of the brain was performed without administration of intravenous contrast material. Individualized dose optimization techniques were used for this CT. COMPARISON: No relevant priors. FINDINGS: Normal soft tissue structures. Normal calvarium. Normal size ventricles and extra-axial spaces for the patient''s age. Normal white matter tracts of the cerebral hemispheres. Normal basal ganglia and thalami. Normal brainstem. Normal cerebellum. There is no intracranial hemorrhage. There are no findings of an acute ischemic infarction. Normal visualized paranasal sinuses. CT/Brain/Head without Contrast IMPRESSION: Normal unenhanced CT scan of the brain. Electronically Signed: Ralph Camarena MD at 6:11 EDT , Service support ,
--- NOTE | 2019-12-23 05:23 | EKG12_ITS ---
Test Reason : NAUSEA AND V Blood Pressure : / mmHG Vent. Rate : 076 BPM Atrial Rate : 076 BPM P-R Int : 154 ms QRS Dur : 084 ms QT Int : 430 ms P-R-T Axes : 068 052 054 degrees QTc Int : 483 ms Normal sinus rhythm Normal ECG Confirmed by SHIRA CEBALLOS, REZA ([id number]), editor producer DEION BRAND ([id number]) on 12/28/2019 8:19:26 AM Referred By: KACIE Confirmed By:LISSY SILVA MD
--- NOTE | 2019-12-23 05:24 | ED.DCSUM_ITS ---
History of Present Illness Chief Complaint: Nausea/Vomiting Informant: Patient - Abdominal Pain/Flank Pain Onset: Yesterday Context: Sudden Onset Timing: Continuous Quality: Aching - some, but mostly nausea Location: Epigastric Current Severity: Mild Maximum Severity: Mild Worsened by: Food Relieved by: Nothing - hasn't tried any of the antiemetics she has at home - Nausea/Vomiting/Emesis GI Symptom: Nausea, Vomiting Onset: Yesterday Quality: Nonbilious. Negative for: Blood streaks, Coffee ground, Hematemesis Severity: Severe - can't keep any fluids down - Diarrhea/Melena/Hematochezia GI Symptom: - - last BM 2-3d ago. Negative for: Diarrhea, Melena, Hematochezia Associated Symptoms: Negative for: Dysuria, Frequency, Hematuria, Urgency Narrative: Patient presents with vomiting since yesterday evening, around 12 hours. Some abdominal discomfort, but mostly nausea and vomiting. She had this the last time she was here except she was also having diarrhea, that is not the case now. She states now she has a terrible headache, points to the bifrontal area. States it was gradual in onset, no thunderclap, no loss of consciousness, and it started after the vomiting and she thinks it is a result of the vomiting. She denies any fevers or chills. No known sick contacts. She followed up with her PCP the day after her last ED visit, during which she saw me as well and had a negative work-up, her diarrhea had resolved so she did not get the outpatient stool studies that we ordered after consulting with her PCP. She got some medications in the office then, and she states for the next week or week and a half, she felt much better. She can think of no other events, ingestions, or exposures that could be related to the onset of the vomiting now that started yesterday. - Past Medical History (1) Fibromyalgia Status: Chronic (2) GERD (gastroesophageal reflux disease) Status: Chronic (3) High cholesterol Status: Chronic (4) Hypothyroidism Status: Chronic (5) Melanoma Status: Chronic (6) Rheumatic fever Status: Resolved (7) Scleroderma Status: Chronic Past Medical History - Allergies and Home Meds Allergies/Adverse Reactions: Allergies No Known Allergies Allergy (Verified 12/23/19 05:08) Primary Care Physician: Wilton Navsa Chi, MD [Primary Care Provider] - Surgical History: appendectomy, herniorrhaphy, hysterectomy Smoking Status: Never smoker Alcohol: None Review of Systems General: Reports: Malaise. Denies: Chills, Fever, Sweats Eyes: Denies: Visual changes - bilaterally, Diplopia ENT: Denies: Rhinorrhea, Sore throat Cardiovascular: Denies: Chest pain, Palpitations Respiratory: Denies: Dyspnea, Cough, Dyspnea on exertion Gastrointestinal: Reports: Abdominal pain, Nausea, Vomiting. Denies: Diarrhea, Melena, Hematochezia Genitourinary: Denies: Dysuria, Hematuria, Frequency Musculoskeletal: Reports: Extremity Pain - aches. Denies: Neck pain, Swelling Skin: Denies: Rash, Wounds Neurological: Reports: Headache. Denies: Weakness, Numbness Physical Exam Vital Signs/Narrative: Vital Signs Temp Pulse Resp BP Pulse Ox 12/23/19 05:08 97.6 F L 79 18 146/77 H 93 Inital Vital Signs reviewed: Yes General: Well nourished, Well developed, No Acute Distress Head: Normocephalic, Atraumatic Eyes: Perrl, EOMI ENT: Moist mucous membranes, No rhinorrhea Neck: Supple, Nontender, No lymphadenopathy Cardiovascular: Regular rate, Regular rhythm, No murmurs Respiratory: No distress, CTA bilaterally, Chest nontender Abdomen: Soft, Nondistended, Normal bowel sounds, Tender - epigastric and supraumbilical areas. Negative for: Guarding, Rebound tenderness, Morales's sign Back: Nontender, Normal Inspection. Negative for: CVA tenderness Extremities: Nontender, No edema. Negative for: Calf Tenderness Skin: Normal color, No rash, No Trauma Neurological: Alert, Oriented x3, Cranial nerves II-XII grossly intact, Normal Strength, Normal Sensation Psychological: Normal Mood, - - anxious Diagnostic/Tx/Re-eval Impressions Brain CT 12/23/19 05:23 IMPRESSION: Normal unenhanced CT scan of the brain. Electronically Signed: Ralph Camarena MD at 6:11 EDT , Service support , 12/23/19 05:23 Brain/Head without Contrast [CT] Stat 12/23/19 06:42 Gallbladder [US] Stat Laboratory Results 12/23/19 12/23/19 12/23/19 05:35 05:35 05:35 WBC 6.7 RBC 4.28 Hgb 12.9 Hct 40.2 MCV 93.9 MCH 30.1 MCHC 32.1 RDW Std Deviation 52.8 H RDW Coeff of Idalia 15.5 H Plt Count 479 H MPV 8.7 Immature Gran % (Auto) 0.700 Neut % (Auto) 76.8 H Lymph % (Auto) 14.8 L [place] % (Auto) 6.4 Eos % (Auto) 0.9 Baso % (Auto) 0.4 Absolute Neuts (auto) 5.1 Absolute Lymphs (auto) 0.99 Nucleated RBC % 0 VBG Carboxyhemoglobin 1.4 Sodium 138 Potassium 3.6 Chloride 103 Carbon Dioxide 30.0 Anion Gap 5 BUN 16 Creatinine 0.68 Estim Creat Clear Calc 43.77 Est GFR (MDRD) Af Amer 110 Est GFR (MDRD) Non-Af 91 BUN/Creatinine Ratio 23.4 H Glucose 96 Calcium 9.3 Total Bilirubin 0.60 AST 21 ALT 22 Alkaline Phosphatase 89 Troponin I < 0.015 Total Protein 7.5 Albumin 3.3 Globulin 4.2 Albumin/Globulin Ratio 0.8 L Lipase 70 L - Rhythm Strip Rhythm Strip: Sinus Rhythm Rate: 76 Ectopy: None - EKG Initial EKG Interpretation: Sinus Rhythm, No Acute Injury Pattern - normal EKG Prior: Unchanged - Medical Decision Making Patient was treated with IV fluids, Reglan. On reevaluation her headache and abdominal discomfort are improved but still present. She is no longer vomiting. She has malaise but in no acute distress and her vital signs are stable. This patient has intermittent bouts of vomiting with no history to suggest an obvious reason. Cardiac work-up tonight is negative, CT of the head shows no acute abnormality, I have ran a carboxyhemoglobin that is very low and within normal limits suggesting carbon monoxide poisoning is not the issue. She had a CT of her abdomen and pelvis in addition to a KUB 2 separate visits in the last month for similar episodes of symptoms, she had some distal esophageal thickening/inflammation that may have been related as a cause or as an effect of the vomiting. There is no pneumonia in the lower lobes of her lungs. Otherwise these tests were negative for anything acute so I chose not to repeat those. I discussed those with her and she is in agreement. She has no cough, shortness of breath, fevers. She had a negative COVID test in the past couple months, I do not think that is what this is given its episodic nature. She does not have classic biliary colic, however she has not had gallbladder testing and that is the most common cause of abdominal pain in her age group. She is tolerating oral fluids, and being given a GI cocktail and Bentyl to help with this discomfort and symptomatology as well. She is comfortable following up with her doctor, and sticking to a bland diet and continuing the Protonix that she has been on for a long time until after the weekend when she can follow-up. In the meantime, ultrasound will be here in about an hour or less, so I am having her get an ultrasound of her gallbladder to rule out abnormalities there. If that is normal, further outpatient work-up that may be reasonable include upper GI, HIDA scan, if her symptoms persist, as upper intestinal and non-gallstone r elated gallbladder problems are in the differential diagnosis. Discussed these possibilities with her, and the fact that these tests are not available emergently in the emergency department and she does not need to be hospitalized at this time. She is in agreement with going home after her ultrasound, as even if she has gallstones, she does not have acute cholecystitis at this time. ED Disposition - Plan for ED Patient: Disposition: Home or Assisted Living Diagnosis: Epigastric pain, Recurrent vomiting, Headache Instructions: ED Nausea Vomiting Adult Prescriptions: Metoclopramide [Reglan] 10 mg PO Q6H PRN #12 tab PRN Reason: Headache or nausea/vomiting Prescription Printed Referrals: Wilton Navas Chi, MD [Primary Care Provider] - As soon as possible
[2019-12-23] MEDS: Metoclopramide 10 MG/2 ML Vial 5 MG IV (05:34)
[2019-12-23] MEDS: 0.9% Normal Saline 1,000 ML 999 ML IV (05:35)
[2019-12-23 05:42] LABS: Absolute Lymphocyte Count 0.99 X10^3/uL (0.83-4.51); Absolute Neutrophil Count 5.1 X10^3/uL (2.0-7.7); Basophil# 0.03 X10^3/uL; Basophil% 0.4 % (0-1); Eosinophil# 0.06 X10^3/uL; Eosinophils% 0.9 % (0-5); Hematocrit 40.2 % (37-47); Hemoglobin 12.9 g/dL (12.0-15.0); Lymphocyte # 0.99 X10^3/ul (4.0); Lymphocyte % 14.8 % (19-41); Mean Corp Hgb Conc 32.1 g/dL (32-36); Mean Corpuscular Hgb 30.1 pg (27.0-32.0); Mean Corpuscular Volume 93.9 fL (81-99); Mean Platelet Vol. 8.7 fl (6.2-12.0); Monocyte# 0.43 X10^3/uL; Monocyte% 6.4 % (0-10); NRBC Flagged by Analyzer 0 % (0-5); Neutrophil # 5.11 X10^3/uL (2.7-7.7); Neutrophil % 76.8 % (47-70); Platelet Count 479 K/mm3 (150-450); RBC Distribution Width CV 15.5 % (11.6-14.6); RBC Distribution Width SD 52.8 fl (35.1-43.9); Red Blood Count 4.28 M/mm3 (4.2-5.4); White Blood Count 6.7 K/mm3 (4.4-11.0)
[2019-12-23 06:00] LABS: ALB/GLOB Ratio 0.8 RATIO (0.9-2.4); AST(SGOT) 21 U/L (15-37); Alanine Aminotransfer ALT/SGPT 22 U/L (13-56); Albumin, Serum 3.3 g/dL (3.2-5.0); Alkaline Phosphatase 89 U/L (45-117); Anion Gap 5 (5-15); BUN 16 mg/dL (7-18); BUN/Creat Ratio 23.4 RATIO (10-20); Calcium,Total 9.3 mg/dL (8.5-10.1); Chloride 103 mmol/L (98-107); Creatinine, Serum 0.68 mg/dL (0.55-1.02); EST Glomerular Filtration Rate 91 mL/min (>60); Est Glom Filt Rate - Afr Amer 110 mL/min (>60); Estimated Creatinine Clearance 43.77 ml/min; Globulin 4.2 g/dL (2.2-4.2); Glucose 96 mg/dL (74-106); Lipase 70 U/L (73-393); Potassium 3.6 mmol/L (3.5-5.1); Protein, Total 7.5 g/dL (6.4-8.2); Sodium Level 138 mmol/L (136-145)
[2019-12-23 06:25] LABS: Carboxyhemoglobin Frac (CO) 1.4 % (0.0-1.5)
--- NOTE | 2019-12-23 06:42 | US_ITS ---
STUDY: ULTRASOUND GALLBLADDER REASON FOR VISIT: Female, 64 years old. Right upper quadrant pain. TECHNIQUE: Ultrasound evaluation of the gallbladder was performed with real-time and static vásquez-scale imaging. TECHNICAL QUALITY: Adequate. COMPARISON: CT of 11/26/2019 FINDINGS: Gallbladder: Normal distended gallbladder. The gallbladder wall measures 1.2 mm. There is a negative sonographic Morales''s sign. There is no pericholecystic fluid. There are no gallstones. Common Bile Duct (C.B.D.): The common bile duct measures 6 mm. Incidentally noted is a small hyperechoic lesion in the right lobe of the liver measuring about 8 mm which may represent small hemangioma. US/Gallbladder IMPRESSION: No evidence of gallstones. Small liver lesion could represent small hemangioma. Electronically Signed: Guillermo Corey MD at 8:20 EDT Tel , Service support ,
[2019-12-23] MEDS: Mag Hydrox/Al Hydrox/Simeth 30 ML UDC PO (06:48)
[2019-12-23] MEDS: Dicyclomine 10 MG Capsule PO (06:49)
--- NOTE | 2019-12-23 06:51 | ED.RN ---
pt spit out half of the gi cocktail and refuses to try and take it again, made aware, no new orders at this time.
--- NOTE | 2019-12-23 08:15 | ED.RN ---
pt up to eat breakfast--ambulated to bathroom. back to room. pt now sleeping-cooperative at this time
[2019-12-23 08:40] VITALS: BP 140/74; PULSE 82; RESP 18; O2SAT 96
== END 2019-12-23 08:45 | disposition home or self-care (01) ==
PROVIDERS: Emergency Provider Emergency Medicine; PCP Family Medicine Geriatric Medicine
DX: R10.13 Epigastric pain (principal); R11.2 Nausea with vomiting, unspecified; R51 Headache; E78.00 Pure hypercholesterolemia, unspecified; E03.9 Hypothyroidism, unspecified; K21.9 Gastro-esophageal reflux disease without esophagitis; M34.9 Systemic sclerosis, unspecified; M79.7 Fibromyalgia; Z90.710 Acquired absence of both cervix and uterus; Z90.89 Acquired absence of other organs
CPT/HCPCS: 70450; 76705; 80053; 82375; 83690; 84484; 85025; 93005; 96361; 96374; 99284; J7030; A4216

== ENCOUNTER 2020-01-03 03:35 | Emergency (ER) | payer MEDICARE, OTHER, SELFPAY ==
[2020-01-03 03:36] VITALS: BP 158/84; PULSE 91; RESP 16; TEMP 36.4; O2SAT 98; BMI 22.4
--- NOTE | 2020-01-03 03:45 | ED.DCSUM_ITS ---
History of Present Illness Chief Complaint: Nausea/Vomiting Informant: Patient Onset: Yesterday Current Severity: Moderate Maximum Severity: Moderate Narrative: Patient presents with recurrent nausea and vomiting. This is been an ongoing issue for the past 2 months. She is had multiple tests performed with no definitive cause. She states she recently saw Dr. Navas and he has another test pending. Patient states yesterday she started vomiting again. She tried to take her Reglan at home but could not keep it down. She denies fever or chills. No diarrhea. - Past Medical History (1) Fibromyalgia Status: Chronic (2) GERD (gastroesophageal reflux disease) Status: Chronic (3) High cholesterol Status: Chronic (4) Hypothyroidism Status: Chronic (5) Scleroderma Status: Chronic Past Medical History - Allergies and Home Meds Allergies/Adverse Reactions: Allergies No Known Allergies Allergy (Verified 01/03/20 03:39) Primary Care Physician: Wilton Navas Chi, MD [Primary Care Provider] - Prior records reviewed: Yes Surgical History: appendectomy, herniorrhaphy, hysterectomy Smoking Status: Never smoker Review of Systems General: Denies: Chills, Fever Eyes: Denies: Visual changes - bilaterally ENT: Denies: Bilateral ear pain Cardiovascular: Denies: Chest pain Respiratory: Denies: Dyspnea, Cough Gastrointestinal: Reports: Abdominal pain - Sore from vomiting, Nausea, Vomiting. Denies: Diarrhea Musculoskeletal: Denies: Extremity Pain Skin: Denies: Rash Neurological: Reports: Headache Hematologic: Denies: Easy bruising, Easy bleeding Allergy: Denies: Uticaria Physical Exam Vital Signs/Narrative: Vital Signs Temp Pulse Resp BP Pulse Ox 01/03/20 03:36 97.5 F L 91 16 158/84 H 98 Inital Vital Signs reviewed: Yes General: Well nourished, Well developed Head: Normocephalic ENT: Moist mucous membranes Neck: Supple Cardiovascular: Regular rate, Regular rhythm Respiratory: No distress, CTA bilaterally Abdomen: Soft, Hypoactive bowel sounds Extremities: Nontender Skin: Normal color Neurological: Alert, Oriented x3 Psychological: - - Anxious Diagnostic/Tx/Re-eval Laboratory Results 01/03/20 01/03/20 03:50 03:50 WBC 10.5 RBC 4.72 Hgb 14.6 Hct 45.1 MCV 95.6 MCH 30.9 MCHC 32.4 RDW Std Deviation 55.0 H RDW Coeff of [place]alia 15.9 H Plt Count 559 H MPV 9.5 Immature Gran % (Auto) 2.800 H Neut % (Auto) 65.2 Lymph % (Auto) 20.4 [place] % (Auto) 10.0 Eos % (Auto) 1.0 Baso % (Auto) 0.6 Absolute Neuts (auto) 6.9 Absolute Lymphs (auto) 2.14 Nucleated RBC % 0 Sodium 137 Potassium 3.8 Chloride 103 Carbon Dioxide 27.0 Anion Gap 7 BUN 18 Creatinine 0.89 Estim Creat Clear Calc 49.18 Est GFR (MDRD) Af Amer 82 Est GFR (MDRD) Non-Af 68 BUN/Creatinine Ratio 20.3 H Glucose 118 H Calcium 9.4 Total Bilirubin 0.50 Direct Bilirubin 0.14 AST 19 ALT 31 Alkaline Phosphatase 85 Total Protein 7.9 Albumin 3.8 Globulin 4.1 Lipase 167 - Medical Decision Making Patient was given Reglan, Benadryl, and IV fluids on arrival. On repeat evaluation she reported only mild improvement in her nausea, but had not had no further vomiting. She was given a dose of Zofran. At this time patient states she is able to sleep a little bit. She still feels somewhat nauseated. She had no further vomiting in the emergency room. She will be given prescriptions for Zofran as well as Phenergan suppositories. She already has Reglan at home. She is to follow-up for what appears to be a HIDA scan that has been scheduled. ED Disposition - Plan for ED Patient: Disposition: Home or Assisted Living Diagnosis: Vomiting Instructions: ED Nausea Vomiting Adult Prescriptions: proMETHazine suppository [Phenergan Suppository] 25 mg RECTAL Q6H PRN PRN #6 suppos. PRN Reason: Nausea Transmission Status: Pending to [facility] Ondansetron [Zofran Odt] 4 mg PO Q8H PRN PRN #10 tab PRN Reason: Nausea Transmission Status: Pending to [id number] Referrals: Wilton Navas Chi, MD [Primary Care Provider] - 3-5 Days if not improving
[2020-01-03] MEDS: DiphenhydrAMINE 50 MG/ML Syringe 12.5 MG IV (03:57)
[2020-01-03] MEDS: 0.9% Normal Saline 1,000 ML 1000 ML IV (03:57)
[2020-01-03] MEDS: Metoclopramide 10 MG/2 ML Vial IV (03:59)
[2020-01-03 04:03] LABS: Absolute Lymphocyte Count 2.14 X10^3/uL (0.83-4.51); Absolute Neutrophil Count 6.9 X10^3/uL (2.0-7.7); Basophil# 0.06 X10^3/uL; Basophil% 0.6 % (0-1); Hematocrit 45.1 % (37-47); Hemoglobin 14.6 g/dL (12.0-15.0); Lymphocyte # 2.14 X10^3/ul (4.0); Lymphocyte % 20.4 % (19-41); Mean Corp Hgb Conc 32.4 g/dL (32-36); Mean Corpuscular Hgb 30.9 pg (27.0-32.0); Mean Corpuscular Volume 95.6 fL (81-99); Mean Platelet Vol. 9.5 fl (6.2-12.0); Monocyte# 1.05 X10^3/uL; NRBC Flagged by Analyzer 0 % (0-5); Neutrophil # 6.86 X10^3/uL (2.7-7.7); Neutrophil % 65.2 % (47-70); Platelet Count 559 K/mm3 (150-450); RBC Distribution Width CV 15.9 % (11.6-14.6); Red Blood Count 4.72 M/mm3 (4.2-5.4); White Blood Count 10.5 K/mm3 (4.4-11.0)
[2020-01-03 04:16] LABS: AST(SGOT) 19 U/L (15-37); Alanine Aminotransfer ALT/SGPT 31 U/L (13-56); Albumin, Serum 3.8 g/dL (3.2-5.0); Alkaline Phosphatase 85 U/L (45-117); Anion Gap 7 (5-15); BUN 18 mg/dL (7-18); BUN/Creat Ratio 20.3 RATIO (10-20); Bilirubin, Direct 0.14 mg/dL (0.00-0.30); Calcium,Total 9.4 mg/dL (8.5-10.1); Chloride 103 mmol/L (98-107); Creatinine, Serum 0.89 mg/dL (0.55-1.02); EST Glomerular Filtration Rate 68 mL/min (>60); Est Glom Filt Rate - Afr Amer 82 mL/min (>60); Estimated Creatinine Clearance 49.18 ml/min; Globulin 4.1 g/dL (2.2-4.2); Glucose 118 mg/dL (74-106); Lipase 167 U/L (73-393); Potassium 3.8 mmol/L (3.5-5.1); Protein, Total 7.9 g/dL (6.4-8.2); Sodium Level 137 mmol/L (136-145)
[2020-01-03 05:07] VITALS: BP 144/82; PULSE 77; RESP 15; O2SAT 97
[2020-01-03] MEDS: Ondansetron 4 MG/2 ML Vial IV (05:22)
[2020-01-03 06:08] VITALS: BP 144/95; PULSE 67; RESP 18; O2SAT 97
== END 2020-01-03 06:15 | disposition home or self-care (01) ==
PROVIDERS: Emergency Provider Emergency Medicine; PCP Family Medicine Geriatric Medicine
DX: R11.2 Nausea with vomiting, unspecified (principal); E03.9 Hypothyroidism, unspecified; K21.9 Gastro-esophageal reflux disease without esophagitis; M79.7 Fibromyalgia
CPT/HCPCS: 80048; 80076; 83690; 85025; 96361; 96374; 96375; 99285; J7030; A4216; J2405

== ENCOUNTER → 2020-01-08 09:47 | Outpatient (CLI) | payer MEDICARE, OTHER, SELFPAY ==
[2020-01-03 03:36] VITALS: BMI 22.4
[2020-01-08 12:46] LABS: Absolute Lymphocyte Count 1.63 X10^3/uL (0.83-4.51); Absolute Neutrophil Count 6.9 X10^3/uL (2.0-7.7); Basophil# 0.03 X10^3/uL; Basophil% 0.3 % (0-1); Eosinophil# 0.06 X10^3/uL; Eosinophils% 0.6 % (0-5); Hematocrit 43.1 % (37-47); Hemoglobin 13.4 g/dL (12.0-15.0); Lymphocyte # 1.63 X10^3/ul (4.0); Lymphocyte % 17.2 % (19-41); Mean Corp Hgb Conc 31.1 g/dL (32-36); Mean Corpuscular Hgb 30.1 pg (27.0-32.0); Mean Corpuscular Volume 96.9 fL (81-99); Mean Platelet Vol. 9.5 fl (6.2-12.0); Monocyte# 0.74 X10^3/uL; Monocyte% 7.8 % (0-10); NRBC Flagged by Analyzer 0 % (0-5); Neutrophil # 6.92 X10^3/uL (2.7-7.7); Platelet Count 508 K/mm3 (150-450); RBC Distribution Width CV 15.9 % (11.6-14.6); RBC Distribution Width SD 56.3 fl (35.1-43.9); Red Blood Count 4.45 M/mm3 (4.2-5.4); White Blood Count 9.5 K/mm3 (4.4-11.0)
[2020-01-08 13:25] LABS: AST(SGOT) 26 U/L (15-37); Alanine Aminotransfer ALT/SGPT 35 U/L (13-56); Albumin, Serum 3.8 g/dL (3.2-5.0); Alkaline Phosphatase 80 U/L (45-117); Anion Gap 6 (5-15); BUN 11 mg/dL (7-18); BUN/Creat Ratio 13.9 RATIO (10-20); Calcium,Total 9.2 mg/dL (8.5-10.1); Chloride 105 mmol/L (98-107); Creatinine, Serum 0.79 mg/dL (0.55-1.02); EST Glomerular Filtration Rate 77 mL/min (>60); Est Glom Filt Rate - Afr Amer 93 mL/min (>60); Globulin 3.8 g/dL (2.2-4.2); Glucose 85 mg/dL (74-106); Potassium 3.3 mmol/L (3.5-5.1); Protein, Total 7.6 g/dL (6.4-8.2); Sodium Level 138 mmol/L (136-145); Thyroid Stim Hormone (TSH) 2.43 uIU/mL (0.358-3.74)
== END ==
PROVIDERS: PCP Family Medicine Geriatric Medicine; Visit Provider Family Medicine Geriatric Medicine
DX: E55.9 Vitamin D deficiency, unspecified (principal); R53.83 Other fatigue
CPT/HCPCS: 36415; 80053; 82306; 84443; 85025

== ENCOUNTER → 2020-01-08 10:20 | Outpatient (CLI) | payer MEDICARE, OTHER, SELFPAY ==
[2019-12-23 05:08] VITALS: BMI 25.3
[2020-01-03 03:36] VITALS: BMI 22.4
--- NOTE | 2020-01-08 10:22 | NM_ITS ---
CLINICAL: 65-year-old female with reported history of right upper quadrant abdominal pain and nausea. RADIONUCLIDE HEPATOBILIARY SCINTIGRAPHY COMPARISON: Gallbladder ultrasound report 12/23/2019 FINDINGS: Following the intravenous administration of 5.4 mCi of 99m Tc Mebrofenin, hepatobiliary images reveal: 1. Relatively prompt and homogeneous radiopharmaceutical concentration is noted by a normal sized liver. No parenchymal defects are identified. 2. Gallbladder activity is identified at 30 minutes post radiopharmaceutical administration. 3. Small intestinal tract is observed at 15 minutes following tracer injection. 4. Washout of the radiopharmaceutical by the hepatic parenchyma appears qualitatively normal. Cholecystokinin (0.02 ug/kg) was administered intravenously over a 30-minute period. The post CCK gallbladder ejection fraction calculated at 18 minutes following Cholecystokinin administration was noted to be 70.0 % (normal greater than 35%). During 30 minutes of post CCK imaging, there is no scintigraphic evidence of reflux of the radiotracer into the common hepatic duct or refilling of the gallbladder. NC/Hepatobilliary Img w/Pharm Int IMPRESSION: 1. NORMAL 99m Tc Mebrofenin hepatobiliary imaging examination with Cholecystokinin. A. A gallbladder ejection fraction calculated to be greater than 35% following the administration of Cholecystokinin makes the probability of functional hepatobiliary disease (gallbladder and/or sphincter of Oddi dyskinesia) and/or organic hepatobiliary disease (chronic acalculous cholecystitis and/or cystic duct syndrome) to be low. (Ela Chen et al, Journal of Nuclear Medicine 32:1695, 1991). Electronically Signed: Lit Miller DO at 22:17 EDT Tel , Service support ,
== END ==
PROVIDERS: PCP Family Medicine Geriatric Medicine; Referring Provider Family Medicine Geriatric Medicine; Visit Provider Family Medicine Geriatric Medicine
DX: E55.9 Vitamin D deficiency, unspecified (principal); R53.83 Other fatigue; R93.2 Abnormal findings on diagnostic imaging of liver and biliary tract
CPT/HCPCS: 36415; 78227; 80053; 82306; 84443; 85025; A9537; J2805

== ENCOUNTER → 2020-01-18 14:09 | Outpatient (CLI) | payer MEDICARE, OTHER, SELFPAY ==
[2020-01-03 03:36] VITALS: BMI 22.4
[2020-01-18 15:52] LABS: Anion Gap 7 (5-15); BUN 12 mg/dL (7-18); BUN/Creat Ratio 13.5 RATIO (10-20); Calcium,Total 8.4 mg/dL (8.5-10.1); Chloride 108 mmol/L (98-107); Creatinine, Serum 0.89 mg/dL (0.55-1.02); EST Glomerular Filtration Rate 67 mL/min (>60); Est Glom Filt Rate - Afr Amer 81 mL/min (>60); Glucose 118 mg/dL (74-106); Potassium 3.2 mmol/L (3.5-5.1); Sodium Level 142 mmol/L (136-145)
== END ==
PROVIDERS: PCP Family Medicine Geriatric Medicine; Visit Provider Family Medicine Geriatric Medicine
DX: E87.6 Hypokalemia (principal)
CPT/HCPCS: 36415; 80048

== ENCOUNTER → 2020-02-02 09:22 | Outpatient (CLI) | payer MEDICARE, OTHER, SELFPAY ==
[2020-01-03 03:36] VITALS: BMI 22.4
[2020-02-02 10:57] LABS: Anion Gap 8 (5-15); BUN 13 mg/dL (7-18); BUN/Creat Ratio 16.1 RATIO (10-20); Calcium,Total 9.1 mg/dL (8.5-10.1); Chloride 105 mmol/L (98-107); Creatinine, Serum 0.81 mg/dL (0.55-1.02); EST Glomerular Filtration Rate 75 mL/min (>60); Est Glom Filt Rate - Afr Amer 91 mL/min (>60); Glucose 122 mg/dL (74-106); Potassium 3.4 mmol/L (3.5-5.1); Sodium Level 139 mmol/L (136-145)
== END ==
PROVIDERS: PCP Family Medicine Geriatric Medicine; Visit Provider Family Medicine Geriatric Medicine
DX: E87.6 Hypokalemia (principal)
CPT/HCPCS: 36415; 80048

== ENCOUNTER → 2020-02-19 16:40 | Outpatient (CLI) | payer MEDICARE, OTHER, SELFPAY ==
--- NOTE | 2020-02-19 16:45 | RAD_ITS ---
STUDY: X-RAY - RIGHT KNEE REASON FOR EXAM: Female, 65 years old. INCREASED KNEE PAIN AND SWELLING ALL AROUND ANTERIOR KNEE . HX OF RHEUMATOID ARTHRITIS. NO KNOWN INJURY TECHNIQUE: 4 view(s) of the knee. COMPARISON: 11/08/2018 FINDINGS: Mild tricompartmental osteoarthritis. No evidence of significant joint space height loss with weightbearing view. No acute findings. RAD/Knee 4 or More Views IMPRESSION: Stable degenerative change of the right knee Electronically Signed: Karl Aburto DO at 3:23 EST Tel , Service support ,
== END ==
PROVIDERS: PCP Family Medicine Geriatric Medicine; Referring Provider Family Medicine Geriatric Medicine; Visit Provider Family Medicine Geriatric Medicine
DX: M17.11 Unilateral primary osteoarthritis, right knee (principal)
CPT/HCPCS: 73564

== ENCOUNTER → 2020-04-05 10:33 | Outpatient (CLI) | payer MEDICARE, OTHER, SELFPAY ==
[2020-04-05 10:51] LABS: Absolute Lymphocyte Count 1.65 X10^3/uL (0.83-4.51); Absolute Neutrophil Count 10.6 X10^3/uL (2.0-7.7); Basophil# 0.04 X10^3/uL; Basophil% 0.3 % (0-1); Eosinophil# 0.05 X10^3/uL; Eosinophils% 0.4 % (0-5); Hematocrit 38.5 % (37-47); Lymphocyte # 1.65 X10^3/ul (4.0); Lymphocyte % 12.1 % (19-41); Mean Corp Hgb Conc 31.2 g/dL (32-36); Mean Platelet Vol. 8.6 fl (6.2-12.0); Monocyte# 1.14 X10^3/uL; Monocyte% 8.4 % (0-10); NRBC Flagged by Analyzer 0 % (0-5); Neutrophil # 10.55 X10^3/uL (2.7-7.7); Neutrophil % 77.2 % (47-70); Platelet Count 584 K/mm3 (150-450); RBC Distribution Width CV 14.4 % (11.6-14.6); RBC Distribution Width SD 49.6 fl (35.1-43.9); Red Blood Count 4.14 M/mm3 (4.2-5.4); White Blood Count 13.7 K/mm3 (4.4-11.0)
[2020-04-05 11:24] LABS: Vitamin D,25 Hydroxy 20.8 ng/mL
[2020-04-05 11:27] LABS: ALB/GLOB Ratio 0.6 RATIO (0.9-2.4); AST(SGOT) 12 U/L (15-37); Alanine Aminotransfer ALT/SGPT 17 U/L (13-56); Albumin, Serum 2.7 g/dL (3.2-5.0); Alkaline Phosphatase 85 U/L (45-117); Anion Gap 4 (5-15); BUN 18 mg/dL (7-18); BUN/Creat Ratio 26.3 RATIO (10-20); Calcium,Total 8.8 mg/dL (8.5-10.1); Chloride 103 mmol/L (98-107); Creatinine, Serum 0.68 mg/dL (0.55-1.02); EST Glomerular Filtration Rate 91 mL/min (>60); Est Glom Filt Rate - Afr Amer 110 mL/min (>60); Globulin 4.3 g/dL (2.2-4.2); Glucose 79 mg/dL (74-106); Potassium 3.9 mmol/L (3.5-5.1); Sodium Level 137 mmol/L (136-145); Thyroid Stim Hormone (TSH) 0.06 uIU/mL (0.358-3.74)
== END ==
PROVIDERS: PCP Family Medicine Geriatric Medicine; Visit Provider Family Medicine Geriatric Medicine
DX: E55.9 Vitamin D deficiency, unspecified (principal); R53.83 Other fatigue
CPT/HCPCS: 36415; 80053; 82306; 84443; 85025

== ENCOUNTER → 2020-05-21 14:23 | Outpatient (CLI) | payer MEDICARE, OTHER, SELFPAY | PROVIDERS: PCP Family Medicine Geriatric Medicine; Referring Provider Family Medicine Geriatric Medicine; Visit Provider Family Medicine Geriatric Medicine | DX: U07.1 COVID-19 (principal); R06.89 Other abnormalities of breathing | CPT/HCPCS: 87635; C9803; U0005; U0003 ==

== ENCOUNTER → 2020-06-10 16:30 | Outpatient (CLI) | payer MEDICARE, OTHER, SELFPAY | PROVIDERS: PCP Family Medicine Geriatric Medicine; Referring Provider Family Medicine Geriatric Medicine; Visit Provider Family Medicine Geriatric Medicine | DX: U07.1 COVID-19 (principal) | CPT/HCPCS: 87635; C9803; U0002 ==

== ENCOUNTER → 2020-07-11 15:22 | Outpatient (CLI) | payer MEDICARE, OTHER, SELFPAY ==
[2020-07-11 15:47] LABS: Absolute Lymphocyte Count 0.52 X10^3/uL (0.83-4.51); Absolute Neutrophil Count 8.8 X10^3/uL (2.0-7.7); Basophil# 0.02 X10^3/uL; Basophil% 0.2 % (0-1); Hematocrit 37.4 % (37-47); Lymphocyte # 0.52 X10^3/ul (0.83-4.51); Lymphocyte % 5.4 % (19-41); Mean Corp Hgb Conc 29.4 g/dL (32-36); Mean Corpuscular Hgb 27.8 pg (27.0-32.0); Mean Corpuscular Volume 94.4 fL (81-99); Mean Platelet Vol. 8.4 fl (6.2-12.0); Monocyte# 0.32 X10^3/uL; Monocyte% 3.3 % (0-10); NRBC Flagged by Analyzer 0 % (0-5); Neutrophil # 8.76 X10^3/uL (2.7-7.7); Neutrophil % 90.2 % (47-70); POSITIVE DIFFERENTIAL YES; Platelet Count 698 K/mm3 (150-450); RBC Distribution Width CV 14.4 % (11.6-14.6); Red Blood Count 3.96 M/mm3 (4.2-5.4); White Blood Count 9.7 K/mm3 (4.4-11.0)
[2020-07-11 15:49] LABS: Differential Indicated SCAN CRITERIA MET
[2020-07-11 16:33] LABS: Vitamin D,25 Hydroxy 27.5 ng/mL
[2020-07-11 16:36] LABS: Anisocytosis RARE; Macrocytosis RARE; Platelet Estimate MKD INC (ADEQ); Red Cell Morphology N CHROM NORMAL (NORM C&C)
[2020-07-11 16:42] LABS: ALB/GLOB Ratio 0.5 RATIO (0.9-2.4); AST(SGOT) 21 U/L (15-37); Alanine Aminotransfer ALT/SGPT 15 U/L (13-56); Albumin, Serum 2.7 g/dL (3.2-5.0); Alkaline Phosphatase 111 U/L (45-117); Anion Gap 3 (5-15); BUN 13 mg/dL (7-18); BUN/Creat Ratio 22.7 RATIO (10-20); Calcium,Total 8.9 mg/dL (8.5-10.1); Chloride 105 mmol/L (98-107); Creatinine, Serum 0.57 mg/dL (0.55-1.02); EST Glomerular Filtration Rate 112 mL/min (>60); Est Glom Filt Rate - Afr Amer 135 mL/min (>60); Globulin 5.3 g/dL (2.2-4.2); Glucose 98 mg/dL (74-106); Potassium 4.2 mmol/L (3.5-5.1); Sodium Level 138 mmol/L (136-145); Thyroid Stim Hormone (TSH) 2.81 uIU/mL (0.358-3.74)
== END ==
PROVIDERS: PCP Family Medicine Geriatric Medicine; Visit Provider Family Medicine Geriatric Medicine
DX: E55.9 Vitamin D deficiency, unspecified (principal); R53.83 Other fatigue
CPT/HCPCS: 36415; 80053; 82306; 84443; 85025

== ENCOUNTER → 2020-08-19 10:28 | Outpatient (CLI) | payer MEDICARE, OTHER, SELFPAY ==
[2020-08-19 11:58] LABS: AST(SGOT) 26 U/L (15-37); Alanine Aminotransfer ALT/SGPT 17 U/L (13-56); Alkaline Phosphatase 116 U/L (45-117); Bilirubin, Direct 0.12 mg/dL (0.00-0.30); Globulin 4.1 g/dL (2.2-4.2); Protein, Total 7.1 g/dL (6.4-8.2)
== END ==
PROVIDERS: PCP Family Medicine Geriatric Medicine; Visit Provider Internal Medicine Rheumatology
DX: R94.5 Abnormal results of liver function studies (principal)
CPT/HCPCS: 36415; 80076

== ENCOUNTER → 2020-09-11 15:01 | Outpatient (CLI) | payer MEDICARE, OTHER, SELFPAY ==
--- NOTE | 2020-09-11 15:05 | VDLE_ITS ---
Reason For Study: Rt Calf Swelling RIGHT GSV is normal. CFV is compressible, spontaneous, phasic, competent and demonstrates normal augmentation. FV is compressible, spontaneous, phasic, competent and demonstrates normal augmentation. T/P Trunk is compressible. Rt PopV, Rt GastrocV, Rt PTV mid calf, and Rt PeroV are dilated and non compressible consistent with acute DVT. Procedure This is a venous duplex using B-mode, color flow and spectral Doppler. Exam performed in department. A preliminary report was called and/or faxed to Dr. Navas. VL/Venous Duplex US, Unilateral Interpretation Summary Acute deep vein thrombosis is noted in the right popliteal vein. Acute deep vei n thrombosis is noted in the right posterior tibial vein. Acute deep vein thrombosis is noted in the right peroneal vein. Acute deep vein thrombosis is noted in the right gastrocnemius vein. The remain bennett of the right lower extremity deep venous system is patent and compressible. The right common femoral vein and femoral vein are competent. The right great saphenous vein appears patent and c ompressible segmentally. Ordering Physician: Ha Guardado Referring Physician: Wilton Navas Chi Performed By: Kimberli Martínez, NORBERT, RVT
== END ==
PROVIDERS: PCP Family Medicine Geriatric Medicine; Referring Provider Internal Medicine Rheumatology; Visit Provider Internal Medicine Rheumatology
DX: M79.89 Other specified soft tissue disorders (principal)
CPT/HCPCS: 93971

== ENCOUNTER 2020-09-12 11:13 | Emergency (ER) | payer MEDICARE, OTHER, SELFPAY ==
[2020-09-12 11:14] VITALS: BP 135/81; PULSE 78; RESP 16; TEMP 36.2; O2SAT 99; BMI 23.2
--- NOTE | 2020-09-12 11:27 | EKG12_ITS ---
Test Reason : VOMMITING Blood Pressure : / mmHG Vent. Rate : 062 BPM Atrial Rate : 062 BPM P-R Int : 160 ms QRS Dur : 082 ms QT Int : 448 ms P-R-T Axes : 053 -16 032 degrees QTc Int : 454 ms Normal sinus rhythm Normal ECG Confirmed by SHIRA CEBALLOS, REZA ([id number]), assignment desk editor JASON CAIN ([id number]) on 09/16/2020 11:06:53 A M Referred By: TITO Confirmed By:LISSY SILVA MD
--- NOTE | 2020-09-12 11:28 | ED.VIS.GI ---
HPI HPI - GI History of Present Illness Chief Complaint: Nausea/Vomiting Informant: patient Abdominal Pain/Flank Pain Onset: Hours (6) Context: Sudden Onset (Woke up from sleep) Timing: Continuous Quality: - (No pain) Nausea/Vomiting/Emesis GI Symptom: Positive for Nausea and Vomiting Onset: Today Quality: Positive for Nonbilious; Negative for Blood streaks, Coffee ground and Hematemesis Severity: Severe Diarrhea/Melena/Hematochezia GI Symptom: Negative for Diarrhea, Melena and Hematochezia Narrative Narrative: Patient has a history of rheumatoid arthritis, had some swelling in her right lower extremity recently her orthopedic ordered an ultrasound of her right lower extremity that showed DVTs, details are unknown at this time but she was started on Xarelto and took the first dose last night. She woke up at 4:30 AM vomiting and has been doing so ever since, presenting around 11. She denies any preceding abdominal pain, no diarrhea, fevers, cough, shortness of breath, chest discomfort. No focal neurologic symptoms, or headache although she feels she has developed a mild gradual onset headache due to all of the vomiting. She denies any bleeding from anywhere. [facility] Medical History Fibromyalgia Headaches, cluster Melanoma pnemonia Rheumatic fever Scleroderma Home Medications pregabalin [Lyrica] 75 mg PO TID 06/08/13 [History Last Taken 02/26/19] pantoprazole 40 mg PO BID 09/24/18 [History Last Taken 02/26/19] hydroxychloroquine 200 mg PO DAILYCM 11/26/19 [History Last Taken Unknown] levothyroxine 25 mcg PO DAILY 11/26/19 [History Last Taken Unknown] meclizine 25 mg PO 4X/DAY PRN PRN #20 tab 09/12/20 [Rx Last Taken Unknown] oxycodone myristate [Xtampza ER] 13.5 mg PO BID 09/12/20 [History Last Taken Unknown] rivaroxaban [Xarelto] 20 mg PO BID 09/12/20 [History Last Taken Unknown] Allergy/AdvReac Type Severity Reaction Status Date / Time No Known Allergies Allergy Verified 09/12/20 11:13 Family History (Updated 07/21/18 @ 14:53 by Luna Asher) Other Asthma Breast cancer CAD (coronary artery disease) Cancer Surgical History History of appendectomy Social History Smoking Status: Never smoker alcohol intake: never substance use type: does not use what type of physical activity do you participate in: walking frequency: 3-4 times per week ROS ROS ED Constitutional Constitutional ED: Denies chills or fever(s) Eyes Eyes: Denies change in vision or diplopia ENT ENT ED: Denies rhinorrhea or sore throat Cardiovascular Cardiovascular: Denies chest pain or palpitations Respiratory/Chest Respiratory/Chest: Denies cough or dyspnea Gastrointestinal Gastrointestinal: Denies abdominal pain or diarrhea Genitourinary Genitourinary ED: Denies dysuria or hematuria Musculoskeletal Musculoskeletal: Reports arthralgias and other Details: Swelling right lower extremity ; Denies back pain or neck pain Integumentary Denies abscess or rash Neurologic Neurologic: Reports headache(s); Denies paresthesias or weakness Psychiatric Psychiatric: Reports anxiety; Denies suicidal thoughts EXAM Physical Exam Const Vital Signs: 09/12/20 11:14 09/12/20 13:19 Temperature 97.2 F L Temperature Source Temporal Pulse Rate 78 63 Respiratory Rate 16 14 Blood Pressure 135/81 H 156/76 H Blood Pressure Mean 99 102 Pulse Ox 99 100 Oxygen Delivery Method Room Air Room Air Positive well nourished and well developed General Appearance ED: well developed and NAD HEENT Reports TM's normal bilaterally and moist mucous membranes normocephalic and atraumatic Eyes PERRL and EOMs intact bilaterally Eyes Narrative: No nystagmus including vertical and rotatory. Neck full ROM and supple Resp normal respiratory effort and clear to auscultation bilaterally Cardio regular rate, regular rhythm and no murmurs GI non-tender and non-distended Auscultation: normoactive bowel sounds Palpation: soft Back/Spine no CVA tenderness General Back: other FROM Extremity General Extremety ED: Yes edema; Negative for pulses abnormal or tenderness General Extremity: edema right lower extremity mild; Negative for pulses abnormal Neuro oriented x3, CN's II-XII intact bilaterally and no sensory deficits noted Sensorium / Orientation: awake and alert Motor Exam: strength 5/5 throughout Psych mental status grossly normal, cooperative and speech normal Mood & Affect: anxious Skin no rashes or lesions noted and no wounds MDM MDM MDM Narrative Medical decision making narrative: Initially I was thinking the Xarelto she started last night did not agree with her, but then she was treated with IV fluids and Zofran and she said she felt no better. I asked her if she was having any dizziness, and the patient states yes, I forgot. She confirms that she is having a sensation of movement and dizziness that has been intermittent and started when she got up at 430 this morning out of bed. CT of the head was ordered in addition to Reglan. CT negative for anything acute, Reglan helped her dizziness and her nausea significantly, she feels much better but she is sleepy and was observed for a while before we got her up to ambulate her. She felt much better and was comfortable with discharge home with a prescription for meclizine for what is most likely peripheral vertigo, we discussed reasons to return she is comfortable with that plan. Since she is anticoagulated it is felt much less likely that this is central in etiology. Radiography Chest X-Ray - ED: 1 View, Read by ED Physician and No Acute Disease Diagnostic Testing: Radiology Impression Chest X-Ray 09/12/20 11:38 IMPRESSION: Mild degree of linear atelectasis at the left lung base. Electronically Signed: Chicho Hercules MD at 12:18 EDT , Service support , Brain CT 09/12/20 12:59 IMPRESSION: Normal unenhanced CT scan of the brain. Electronically Signed: Chicho Hercules MD at 13:52 EDT , Service support , EKG Initial EKG: Attestation: I personally reviewed and interpreted this EKG as follows: Interpretation: Sinus Rhythm and No Acute Injury Pattern Comments: Normal EKG, NSR 62 Discharge Plan Triage Chief Complaint: Nausea/Vomiting ED Provider: Sergei Vargas Dx/Rx/DC Orders Clinical Impression: Peripheral vertigo Instructions: ED Vertigo, Unspecified Prescriptions: New meclizine 25 mg tablet 25 mg PO 4X/DAY PRN PRN (Reason: Dizziness) Qty: 20 RF: 0 No Action pregabalin [Lyrica] 100 MG capsule 75 mg PO TID RF: 0 pantoprazole 20 MG tablet 40 mg PO BID RF: 0 levothyroxine 88 MCG tablet 25 mcg PO DAILY RF: 0 hydroxychloroquine 200 MG tablet 200 mg PO DAILYCM RF: 0 Xarelto 20 mg tablet 20 mg PO BID RF: 0 Xtampza ER 13.5 mg cap,sprinkl,ER12hr(DONT CRUSH) 13.5 mg PO BID RF: 0 Primary Care Provider: Wilton Navas Chi Referrals: Wilton Navas Chi, MD [Primary Care Provider] - 3-5 Days if not improving Disposition Disposition: Home, self care
--- NOTE | 2020-09-12 11:38 | RAD_ITS ---
STUDY: X-RAY CHEST REASON FOR EXAM: Female, 65 years old. Vomiting TECHNIQUE: Single AP portable view of the chest. COMPARISON: Comparison is made with prior study dated 08/29/2018. FINDINGS: Mild degree of increased linear markings at the left lung base suggests right upper left basilar linear atelectasis. There is no demonstrated pleural abnormality. Normal size heart. Normal mediastinum and arya. Normal visualized pulmonary arteries. Normal visualized aortic arch and descending thoracic aorta. There are diffuse degenerative changes of the visualized thoracic spine. Normal visualized ribs, clavicles, and shoulders. There is no demonstrated abnormality of the visualized soft tissue structures of the upper abdomen. RAD/Chest 1 View (Portable) IMPRESSION: Mild degree of linear atelectasis at the left lung base. Electronically Signed: Chicho Hercules MD at 12:18 EDT , Service support ,
[2020-09-12] MEDS: Ondansetron 4 MG/2 ML Vial IV (12:08)
--- NOTE | 2020-09-12 12:59 | CT_ITS ---
STUDY: CT BRAIN WITHOUT CONTRAST REASON FOR EXAM: Female, 65 years old. Vertigo RADIATION DOSAGE (If Supplied By Facility): CTDIvol = ( 44.99 ) mGy, DLP = ( 745.49 ) mGycm TECHNIQUE: Transaxial CT imaging of the brain was performed without administration of intravenous contrast material. Individualized dose optimization techniques were used for this CT. COMPARISON: Comparison is made with prior study dated 12/23/2019. FINDINGS: Normal soft tissue structures. Normal calvarium. Normal size ventricles and extra-axial spaces for the patient''s age. Normal white matter tracts of the cerebral hemispheres. Normal basal ganglia and thalami. Normal brainstem. Normal cerebellum. There is no intracranial hemorrhage. There are no findings of an acute ischemic infarction. Normal visualized paranasal sinuses. CT/Brain/Head without Contrast IMPRESSION: Normal unenhanced CT scan of the brain. Electronically Signed: Chicho Hercules MD at 13:52 EDT , Service support ,
[2020-09-12] MEDS: Metoclopramide 10 MG/2 ML Vial 5 MG IV (13:13)
[2020-09-12 13:19] VITALS: BP 156/76; PULSE 63; RESP 14; O2SAT 100
== END 2020-09-12 15:37 | disposition home or self-care (01) ==
PROVIDERS: Emergency Provider Emergency Medicine; PCP Family Medicine Geriatric Medicine
DX: H81.399 Other peripheral vertigo, unspecified ear (principal); R10.9 Unspecified abdominal pain; R19.7 Diarrhea, unspecified; R11.2 Nausea with vomiting, unspecified; Z79.899 Other long term (current) drug therapy; Z79.01 Long term (current) use of anticoagulants
CPT/HCPCS: 70450; 71045; 93005; 96374; 96375; 99282; J7040; A4216; J2405

== ENCOUNTER → 2020-09-26 08:58 | Outpatient (CLI) | payer MEDICARE, OTHER, SELFPAY ==
[2020-09-12 11:14] VITALS: BMI 23.2
--- NOTE | 2020-09-26 09:00 | VDLE_ITS ---
Reason For Study: edema Procedure LEFT This is a venous duplex using B-mode, color GSV is normal. flow and spectral Doppler. CFV is compressible, spontaneous, phasic, Exam performed in department. competent, and demonstrates normal The exam was abbreviated due to the COVID 19 augmentation. protocol. FV is compressible, spontaneous, phasic, The exam was diagnostic. competent and demonstrates normal A preliminary report was called and/or faxed augmentation. to Dr. Navas. POP V is compressible, spontaneous, phasic, competent and demonstrates normal augmentation. T/P Trunk is compressible. PTV is compressible. LT PerV is compressible. Soleus V and SSV are dilated an noncompressible. VL/Venous Duplex US, Unilateral Interpretation Summary Acute deep vein thrombosis is noted in the left soleus vein. The remainder of t he left lower extremity deep venous system is patent and compressible. Valvular competence ap pears intact within the proximal deep venous system on the left . The left great saphenous vein joseph ears patent and compressible segmentally. Acute superficial thrombophlebitis is noted in the le ft small saphenous vein. Ordering Physician: Wilton Navas Performed By: Meir Garcia, RVT
== END ==
PROVIDERS: PCP Family Medicine Geriatric Medicine; Referring Provider Family Medicine Geriatric Medicine; Visit Provider Family Medicine Geriatric Medicine
DX: R60.0 Localized edema (principal)
CPT/HCPCS: 93971

== ENCOUNTER → 2020-10-09 14:59 | Outpatient (CLI) | payer MEDICARE, OTHER, SELFPAY ==
[2020-09-12 11:14] VITALS: BMI 23.2
[2020-10-09 15:46] LABS: Absolute Lymphocyte Count 2.48 X10^3/uL (0.83-4.51); Absolute Neutrophil Count 3.4 X10^3/uL (2.0-7.7); Basophil# 0.03 X10^3/uL; Basophil% 0.4 % (0-1); Eosinophil# 0.15 X10^3/uL; Eosinophils% 2.2 % (0-5); Hematocrit 42.8 % (37-47); Hemoglobin 13.4 g/dL (12.0-15.0); Lymphocyte # 2.48 X10^3/ul (0.83-4.51); Lymphocyte % 36.5 % (19-41); Mean Corp Hgb Conc 31.3 g/dL (32-36); Mean Corpuscular Hgb 28.6 pg (27.0-32.0); Mean Corpuscular Volume 91.3 fL (81-99); Mean Platelet Vol. 9.5 fl (6.2-12.0); Monocyte# 0.68 X10^3/uL; NRBC Flagged by Analyzer 0 % (0-5); Neutrophil # 3.42 X10^3/uL (2.7-7.7); Neutrophil % 50.5 % (47-70); Platelet Count 441 K/mm3 (150-450); RBC Distribution Width CV 15.9 % (11.6-14.6); RBC Distribution Width SD 53.3 fl (35.1-43.9); Red Blood Count 4.69 M/mm3 (4.2-5.4); White Blood Count 6.8 K/mm3 (4.4-11.0)
[2020-10-09 15:56] LABS: Vitamin D,25 Hydroxy 24.3 ng/mL
[2020-10-09 16:09] LABS: ALB/GLOB Ratio 1.3 RATIO (0.9-2.4); AST(SGOT) 23 U/L (15-37); Alanine Aminotransfer ALT/SGPT 30 U/L (13-56); Albumin, Serum 3.7 g/dL (3.2-5.0); Alkaline Phosphatase 74 U/L (45-117); Anion Gap 6 (5-15); BUN 10 mg/dL (7-18); BUN/Creat Ratio 13.4 RATIO (10-20); Calcium,Total 8.4 mg/dL (8.5-10.1); Chloride 103 mmol/L (98-107); Creatinine, Serum 0.75 mg/dL (0.55-1.02); EST Glomerular Filtration Rate 82 mL/min (>60); Est Glom Filt Rate - Afr Amer 99 mL/min (>60); Globulin 2.9 g/dL (2.2-4.2); Glucose 97 mg/dL (74-106); Potassium 3.7 mmol/L (3.5-5.1); Protein, Total 6.6 g/dL (6.4-8.2); Sodium Level 139 mmol/L (136-145)
== END ==
PROVIDERS: PCP Family Medicine Geriatric Medicine; Visit Provider Family Medicine Geriatric Medicine
DX: Z01.84 Encounter for antibody response examination (principal); I10 Essential (primary) hypertension; E55.9 Vitamin D deficiency, unspecified; R53.83 Other fatigue; N39.0 Urinary tract infection, site not specified
CPT/HCPCS: 36415; 80053; 82306; 84443; 85025; 87086; 87088

== ENCOUNTER → 2020-10-23 12:11 | Outpatient (CLI) | payer MEDICARE, OTHER, SELFPAY ==
[2020-10-23 13:08] LABS: Amphetamine Urine VISTA NEGATIVE (<1000 ng/mL); Barbiturate Urine VISTA NEGATIVE (< 200 ng/mL); Benzodiazepine Urine VISTA NEGATIVE (< 200 ng/mL); Cocaine Urine VISTA NEGATIVE (< 300 ng/mL); Ecstacy Urine VISTA NEGATIVE (< 500 ng/mL); Methadone Urine VISTA NEGATIVE (< 300 ng/mL); PCP Urine VISTA NEGATIVE (< 25 ng/mL); THC Urine VISTA NEGATIVE (< 50 ng/mL); Vista UDS pH Range 6
== END ==
PROVIDERS: PCP Family Medicine Geriatric Medicine; Referring Provider Anesthesiology Pain Medicine; Visit Provider Anesthesiology Pain Medicine
DX: F11.20 Opioid dependence, uncomplicated (principal)
CPT/HCPCS: 80307

== ENCOUNTER → 2020-10-29 13:54 | Outpatient (CLI) | payer MEDICARE, OTHER, SELFPAY ==
[2020-10-29 14:32] LABS: Absolute Lymphocyte Count 2.32 X10^3/uL (0.83-4.51); Absolute Neutrophil Count 2.7 X10^3/uL (2.0-7.7); Basophil# 0.03 X10^3/uL; Basophil% 0.5 % (0-1); Eosinophil# 0.16 X10^3/uL; Eosinophils% 2.8 % (0-5); Hemoglobin 13.7 g/dL (12.0-15.0); Lymphocyte # 2.32 X10^3/ul (0.83-4.51); Lymphocyte % 40.6 % (19-41); Mean Corp Hgb Conc 31.9 g/dL (32-36); Mean Corpuscular Hgb 29.8 pg (27.0-32.0); Mean Corpuscular Volume 93.5 fL (81-99); Mean Platelet Vol. 9.4 fl (6.2-12.0); Monocyte# 0.47 X10^3/uL; Monocyte% 8.2 % (0-10); NRBC Flagged by Analyzer 0 % (0-5); Neutrophil % 47.4 % (47-70); Platelet Count 297 K/mm3 (150-450); RBC Distribution Width CV 14.6 % (11.6-14.6); White Blood Count 5.7 K/mm3 (4.4-11.0)
[2020-10-29 14:42] LABS: Partial Thromboplast Time 29.6 Seconds (24.1-36.2)
== END ==
PROVIDERS: PCP Family Medicine Geriatric Medicine; Visit Provider Family Medicine Geriatric Medicine
DX: I82.409 Acute embolism and thrombosis of unspecified deep veins of unspecified lower extremity (principal)
CPT/HCPCS: 36415; 85025; 85730

== ENCOUNTER → 2020-10-29 14:03 | Outpatient (CLI) | payer MEDICARE, OTHER, SELFPAY ==
--- NOTE | 2020-10-29 14:15 | RAD_ITS ---
STUDY: X-RAY - RIGHT KNEE REASON FOR EXAM: Female, 65 years old. Knee pain. TECHNIQUE: Floor view(s) of the knee. COMPARISON: 02/19/2020. FINDINGS: Mild osteopenia. Normal visualized distal femur. Normal visualized proximal tibia and fibula. Normal proximal tibiofibular articulation. Mild arthrosis of the medial compartment unchanged. Normal lateral femorotibial compartment. Slight lateral tilt of the patella with mild arthrosis of the patellofemoral compartment unchanged. The soft tissue structures are unremarkable. RAD/Knee 4 or More Views IMPRESSION: Stable osteopenia with mild osteoarthritic changes of the medial and patellofemoral compartments. Electronically Signed: Romain Oden MD at 9:16 EDT , Service support ,
--- NOTE | 2020-10-29 14:23 | VDLE_ITS ---
Reason For Study: edema RIGHT LEFT GSV is normal. GSV is normal. CFV is compressible, spontaneous, phasic, CFV is compressible, spontaneous, phasic, competent and demonstrates normal competent, and demonstrates normal augmentation. augmentation. FV is compressible, spontaneous, phasic, FV is compressible, spontaneous, phasic, competent and demonstrates normal competent and demonstrates normal augmentation. augmentation. T/P Trunk is compressible. POP V is compressible, spontaneous, phasic, PTV is compressible. competent and demonstrates normal POP V, Peroneal V, and Gastroc V demonstrate augmentation. chronic vein wall thickening. PTV are now T/P Trunk is compressible. compressible. PTV is compressible. Procedure LT PerV is compressible. This is a venous duplex using B-mode, color Soleus V is now compressible. flow and spectral Doppler. SSV is partially compressible. Exam performed in department. The exam was diagnostic. A preliminary report was called and/or faxed to Dr. Navas's office. (Adriana). Improvement noted from previous study. VL/Venous Duplex US - [place]ar Extrem Interpretation Summary Deep veins of the lower extremities are bilaterally patent and compressible seg mentally. There is no evidence of deep vein thrombosis on either side. Valvular competence appears in tact within the proximal deep venous systems bilaterally. The great saphenous veins appear bila terally patent and compressible segmentally. Chronic vein wall thickening is noted in the right po pliteal vein, peroneal vein, and gastrocnemius vein. Chronic venous changes are noted in the left small saphenous vein. There has been significant improvement in both lower extremities since pr ior studies on 09/11/2020 and 09/26/2020, with apparent resolution of both deep and superficial a cute thrombosis. Ordering Physician: Wilton Navas Performed By: Meir Garcia RVT
== END ==
PROVIDERS: PCP Family Medicine Geriatric Medicine; Referring Provider Family Medicine Geriatric Medicine; Visit Provider Family Medicine Geriatric Medicine
DX: R60.0 Localized edema (principal); M17.11 Unilateral primary osteoarthritis, right knee; M85.80 Other specified disorders of bone density and structure, unspecified site; I82.409 Acute embolism and thrombosis of unspecified deep veins of unspecified lower extremity
CPT/HCPCS: 36415; 73564; 85025; 85730; 93970

== ENCOUNTER → 2020-12-09 14:38 | Outpatient (CLI) | payer MEDICARE, OTHER, SELFPAY ==
--- NOTE | 2020-12-09 15:00 | VDLE_ITS ---
Reason For Study: EDEMA RIGHT LEFT GSV is normal. CFV is compressible, spontaneous, phasic, CFV is compressible, spontaneous, competent competent, and demonstrates normal and demonstrates pulsatile venous flow. augmentation. FV is compressible, spontaneous, competent and demonstrates pulsatile venous flow. POPV is demonstrates wall thickening and pulsitile vein flow. T/P TRUNK demonstrate vein wall thickening. Gastrocnemius V, PTV & PERV are noncompressible with no flow demonstrated in vessels. Procedure This is a venous duplex using B-mode, color flow and spectral Doppler. Exam performed in department. The study was technically difficult. A preliminary report was called and/or faxed to Dr. Navas's office @ 3:45 pm & will call PT with instructions. VL/Venous Duplex US, Unilateral Interpretation Summary Acute deep vein thrombosis is noted in the right posterior tibial vein. Acute d eep vein thrombosis is noted in the right peroneal vein. Acute deep vein thrombosis is noted in the right gastrocnemius vein. Chronic vein wall thickening is noted in the right popliteal vein and tib io-peroneal trunk. The right common femoral vein and femoral vein are patent, compressible, and co mpetent. The right great saphenous vein appears patent and compressible segmentally. Pulsatile char w is noted in the right lower extremity deep venous system, which may be indicative of elevated c entral venous pressure (i.e. congestive heart failure, tricuspid valve insufficiency, etc.). Clinical correlation is advised. Ordering Physician: Wilton Navas Referring Physician: Wilton Navas Chi Performed By: Aleta Eubanks, NORBERT, RVT
== END ==
PROVIDERS: PCP Family Medicine Geriatric Medicine; Referring Provider Family Medicine Geriatric Medicine; Visit Provider Family Medicine Geriatric Medicine
DX: M25.561 Pain in right knee (principal); R60.0 Localized edema
CPT/HCPCS: 93971

== ENCOUNTER → 2020-12-30 07:40 | Outpatient (CLI) | payer MEDICARE, OTHER, SELFPAY ==
--- NOTE | 2020-12-30 07:44 | BI_ITS ---
MAMMOGRAPHY - BILATERAL SCREENING 3-D TOMOSYNTHESIS REASON FOR EXAM: Female, 65 years old. SCREENING PERTINENT HISTORY: No significant family history. TECHNIQUE: 2-D mammograms and 3-D Tomosynthesis of the breast (s) were performed. CAD was performed. COMPARISON: 11/20/2014 FINDINGS: The breast composition is heterogeneously dense that can obscure small breast masses. Scattered benign calcifications are seen. No dense spiculated masses or suspicious microcalcifications are identified. No architectural distortion is identified. There is no skin thickening or retraction. There has been no significant change since the prior study. BI/SCRN MAMM (CAD)W/LORENA BILAT IMPRESSION: No mammographic signs of malignancy. Routine yearly mammograms recommended. ASSESSMENT CATEGORY: BIRADS Category 1: Negative. A letter regarding these results will be sent to the patient by the facility within 30 days. FOLLOW UP RECOMMENDATION: Yearly follow up mammogram recommended. (A) Approximately 10% of breast cancers are not detected by mammography. A normal mammogram should not delay biopsy of a clinically suspicious abnormality. Electronically Signed: Lit Jolley MD at 8:50 EDT Tel , Service support ,
== END ==
PROVIDERS: PCP Family Medicine Geriatric Medicine; Referring Provider Family Medicine Geriatric Medicine; Visit Provider Family Medicine Geriatric Medicine
DX: Z12.31 Encounter for screening mammogram for malignant neoplasm of breast (principal)
CPT/HCPCS: 77063; 77067

== ENCOUNTER → 2021-01-01 | Outpatient (CLI) | payer MEDICARE, OTHER, SELFPAY ==
[2021-01-01 17:43] LABS: M R Staph aureus DNA By PCR Negative (Negative); Probe Check PASS; Specimen Processing Control PASS
[2021-01-01 17:44] LABS: Staph aureus DNA By PCR NEGATIVE (Negative)
== END | disposition home or self-care (01) ==
LOC: LABSPEC 15:24
PROVIDERS: PCP Family Medicine Geriatric Medicine; Visit Provider Family Medicine Geriatric Medicine
DX: S81.809A Unspecified open wound, unspecified lower leg, initial encounter (principal); X58.XXXA Exposure to other specified factors, initial encounter; B95.62 Methicillin resistant Staphylococcus aureus infection as the cause of diseases classified elsewhere
CPT/HCPCS: 87070; 87077; 87186; 87205; 87640

== ENCOUNTER → 2021-01-08 10:42 | Outpatient (CLI) | payer MEDICARE, OTHER, SELFPAY ==
[2021-01-08 12:29] LABS: Absolute Lymphocyte Count 1.86 X10^3/uL (0.83-4.51); Basophil# 0.03 X10^3/uL; Basophil% 0.7 % (0-1); Eosinophil# 0.18 X10^3/uL; Hematocrit 40.8 % (37-47); Hemoglobin 13.3 g/dL (12.0-15.0); Lymphocyte # 1.86 X10^3/ul (0.83-4.51); Lymphocyte % 41.2 % (19-41); Mean Corp Hgb Conc 32.6 g/dL (32-36); Mean Corpuscular Hgb 30.6 pg (27.0-32.0); Mean Corpuscular Volume 93.8 fL (81-99); Mean Platelet Vol. 10.2 fl (6.2-12.0); Monocyte# 0.47 X10^3/uL; Monocyte% 10.4 % (0-10); NRBC Flagged by Analyzer 0 % (0-5); Neutrophil # 1.95 X10^3/uL (2.7-7.7); Neutrophil % 43.3 % (47-70); Platelet Count 291 K/mm3 (150-450); RBC Distribution Width CV 13.4 % (11.6-14.6); RBC Distribution Width SD 46.3 fl (35.1-43.9); Red Blood Count 4.35 M/mm3 (4.2-5.4); White Blood Count 4.5 K/mm3 (4.4-11.0)
[2021-01-08 12:43] LABS: Vitamin D,25 Hydroxy 20.1 ng/mL
[2021-01-08 12:55] LABS: ALB/GLOB Ratio 1.1 RATIO (0.9-2.4); AST(SGOT) 27 U/L (15-37); Alanine Aminotransfer ALT/SGPT 24 U/L (13-56); Albumin, Serum 3.4 g/dL (3.2-5.0); Alkaline Phosphatase 74 U/L (45-117); Anion Gap 6 (5-15); BUN 15 mg/dL (7-18); BUN/Creat Ratio 19.6 RATIO (10-20); Calcium,Total 8.5 mg/dL (8.5-10.1); Chloride 105 mmol/L (98-107); Creatinine, Serum 0.77 mg/dL (0.55-1.02); EST Glomerular Filtration Rate 80 mL/min (>60); Est Glom Filt Rate - Afr Amer 96 mL/min (>60); Globulin 3.2 g/dL (2.2-4.2); Glucose 78 mg/dL (74-106); Potassium 3.7 mmol/L (3.5-5.1); Protein, Total 6.6 g/dL (6.4-8.2); Sodium Level 139 mmol/L (136-145); Thyroid Stim Hormone (TSH) 6.46 uIU/mL (0.358-3.74)
== END ==
PROVIDERS: PCP Family Medicine Geriatric Medicine; Visit Provider Family Medicine Geriatric Medicine
DX: E55.9 Vitamin D deficiency, unspecified (principal); R53.83 Other fatigue
CPT/HCPCS: 36415; 80053; 82306; 84443; 85025

== ENCOUNTER → 2021-01-23 13:28 | Outpatient (CLI) | payer MEDICARE, OTHER, SELFPAY ==
[2021-01-23 18:31] LABS: M R Staph aureus DNA By PCR POSITIVE (Negative); Probe Check PASS; Staph aureus DNA By PCR POSITIVE (Negative)
== END ==
PROVIDERS: PCP Family Medicine Geriatric Medicine; Visit Provider Family Medicine Geriatric Medicine
DX: S81.809A Unspecified open wound, unspecified lower leg, initial encounter (principal); X58.XXXA Exposure to other specified factors, initial encounter; B95.62 Methicillin resistant Staphylococcus aureus infection as the cause of diseases classified elsewhere
CPT/HCPCS: 87070; 87077; 87186; 87205; 87640

== ENCOUNTER → 2021-03-17 14:30 | Outpatient (CLI) | payer MEDICARE, OTHER, SELFPAY ==
[2021-03-17 16:19] LABS: Absolute Lymphocyte Count 1.51 X10^3/uL (0.83-4.51); Absolute Neutrophil Count 0.6 X10^3/uL (2.0-7.7); Basophil# 0.03 X10^3/uL; Eosinophil# 0.41 X10^3/uL; Eosinophils% 13.1 % (0-5); Hematocrit 38.5 % (37-47); Hemoglobin 13.1 g/dL (12.0-15.0); Lymphocyte # 1.51 X10^3/ul (0.83-4.51); Lymphocyte % 48.4 % (19-41); Mean Corpuscular Hgb 31.6 pg (27.0-32.0); Mean Corpuscular Volume 92.8 fL (81-99); Mean Platelet Vol. 9.8 fl (6.2-12.0); Monocyte# 0.59 X10^3/uL; Monocyte% 18.9 % (0-10); NRBC Flagged by Analyzer 0 % (0-5); Neutrophil # 0.58 X10^3/uL (2.7-7.7); Neutrophil % 18.6 % (47-70); POSITIVE DIFFERENTIAL YES; POSITIVE MORPHOLOGY YES; Platelet Count 199 K/mm3 (150-450); RBC Distribution Width SD 44.1 fl (35.1-43.9); Red Blood Count 4.15 M/mm3 (4.2-5.4); White Blood Count 3.1 K/mm3 (4.4-11.0)
[2021-03-17 16:34] LABS: Differential Indicated SCAN CRITERIA MET
[2021-03-17 18:40] LABS: Platelet Estimate ADEQUATE (ADEQ); Reactive Lymphocyte 2+; Red Cell Morphology NORM C+C NORMAL (NORM C&C)
== END ==
PROVIDERS: PCP Family Medicine Geriatric Medicine; Visit Provider Internal Medicine Rheumatology
DX: D72.819 Decreased white blood cell count, unspecified (principal)
CPT/HCPCS: 36415; 85025

== ENCOUNTER 2021-03-22 13:09 | Emergency (ER) | payer MEDICARE, OTHER, SELFPAY ==
[2021-03-22 13:10] VITALS: BP 151/80; PULSE 71; RESP 15; TEMP 36.6; O2SAT 96; BMI 23.0
--- NOTE | 2021-03-22 13:21 | RAD_ITS ---
STUDY: X-RAY - LEFT HAND, ATTENTION THIRD FINGER REASON FOR EXAM: Female, 66 years old. trauma TECHNIQUE: 3 view(s) of the finger were obtained. COMPARISON: None. FINDINGS: Normal metacarpal head. Normal metacarpophalangeal joint. Normal proximal phalanx. Normal middle phalanx. Normal distal phalanx. Normal proximal interphalangeal joint. Normal distal interphalangeal joint. There is gas in the soft tissue and edema due to laceration. RAD/Finger(s) Min 2 Views IMPRESSION: No acute osseous injury. Electronically Signed: Elsi Anglin MD at 14:12 EST Tel , Service support ,
--- NOTE | 2021-03-22 13:33 | EDS_ITS ---
HPI History of Present Illness HPI Narrative: Patient's third left finger got caught in a dog leash and pulled. Patient sustained a laceration. She has slight tenderness in the finger. Tetanus is not up-to-date. 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 Rheumatic fever Scleroderma Home Medications pregabalin [Lyrica] 75 mg PO TID 06/08/13 [History Last Taken 02/26/19] pantoprazole 40 mg PO BID 09/24/18 [History Last Taken 02/26/19] hydroxychloroquine 200 mg PO DAILYCM 11/26/19 [History Last Taken Unknown] levothyroxine 25 mcg PO DAILY 11/26/19 [History Last Taken Unknown] meclizine 25 mg PO 4X/DAY PRN PRN #20 tab 09/12/20 [Rx Last Taken Unknown] oxycodone myristate [Xtampza ER] 13.5 mg PO BID 09/12/20 [History Last Taken Unknown] estradiol 1 mg tablet 1 mg PO DAILY 12/23/20 [History Last Taken Unknown] warfarin 2 mg tablet 2 mg PO DAILY 12/23/20 [History Last Taken Unknown] hydrocodone-acetaminophen 1 tab PO QHS PRN 3 Days #10 tab 03/22/21 [Rx Last Taken Unknown] Allergy/AdvReac Type Severity Reaction Status Date / Time No Known Allergies Allergy Verified 03/22/21 13:11 Family History Sister Ovarian cancer Father CAD (coronary artery disease) Brother CAD (coronary artery disease) Other Asthma Breast cancer Cancer Surgical History History of appendectomy History of hernia repair History of hysterectomy Social History household members: spouse Smoking Status: Never smoker second hand exposure: No alcohol intake: never substance use type: does not use what type of physical activity do you participate in: walking frequency: 3-4 times per week lesly/cheondoism: None seatbelt use: always do you feel safe at home: Yes ROS ROS ED ROS Narrative Past medical history: none Medications: Reviewed Social history: Noncontributory Review of systems: Musculoskeletal: Finger injury as in HPI Skin: Laceration as in HPI Neurological: No weakness or paresthesias Hematologic: She is prone to bruising EXAM Physical Exam Narrative Exam Narrative: Physical exam General: Patient does not appear in significant distress . Head: Normocephalic, Atraumatic Neck: No C-spine tenderness Cardiovascular: Normal distal pulses Back: Nontender, Normal Inspection. Extremities: There is tenderness over the middle finger on the left, there is a laceration retirement around the finger that is about 2.5 cm long. Normal tendon function. Skin: No abrasions, no lacerations Neurological: Normal strength and sensation Const Vital Signs: 03/22/21 13:10 Temperature 98 F Temperature Source Temporal Pulse Rate 71 Respiratory Rate 15 Blood Pressure 151/80 H Blood Pressure Mean 103 Pulse Ox 96 Oxygen Delivery Method Room Air MDM MDM MDM Narrative Medical decision making narrative: X-rays unremarkable. Laceration was sutured. I will discharge with clean instructions. Procedures Lacerations 1st : Length: 1 in Depth: Skin Shape: Flap Prep: Gregg-Isadora Laceration repair: Lidocaine and Local Number of Sutures/Nelson: 4 Suture Information: Ethilon and 4-0 Comment: Patient tolerated procedure well Discharge Plan Triage Chief Complaint: Upper Extremity Injury ED Provider: Pavan Ceja Dx/Rx/DC Orders Clinical Impression: Laceration, Contusion of finger Instructions: Bone Contusion, ED Laceration: All Closures Prescriptions: New hydrocodone-acetaminophen 5-325 mg tablet 1 tab PO QHS PRN (Reason: pain) 3 Days Qty: 10 RF: 0 No Action estradiol 1 mg tablet 1 mg PO DAILY RF: 0 warfarin 2 mg tablet 2 mg PO DAILY RF: 0 pregabalin [Lyrica] 100 MG capsule 75 mg PO TID RF: 0 pantoprazole 20 MG tablet 40 mg PO BID RF: 0 levothyroxine 88 MCG tablet 25 mcg PO DAILY RF: 0 hydroxychloroquine 200 MG tablet 200 mg PO DAILYCM RF: 0 Xtampza ER 13.5 mg cap,sprinkl,ER12hr(DONT CRUSH) 13.5 mg PO BID RF: 0 meclizine 25 mg tablet 25 mg PO 4X/DAY PRN PRN (Reason: Dizziness) Qty: 20 RF: 0 Primary Care Provider: Wilton Navas Chi Referrals: Wilton Navas Chi, MD [Primary Care Provider] - 10 Day for suture removal
[2021-03-22] MEDS: Diphth,Pertuss(Acell),Tet Vac 0.5 ML Vial IM (13:42)
[2021-03-22] MEDS: Lidocaine 1% (20 ml mdv) 20 ML Vial INFILT (15:00)
[2021-03-22] MEDS: HYDROcodone Bitartrate/Apap 5/325 Tablet PO (15:30)
[2021-03-22 15:35] VITALS: RESP 17
== END 2021-03-22 15:35 | disposition home or self-care (01) ==
LOC: ED 13:37
PROVIDERS: Emergency Provider Emergency Medicine; PCP Family Medicine Geriatric Medicine
DX: S61.213A Laceration without foreign body of left middle finger without damage to nail, initial encounter (principal); S60.032A Contusion of left middle finger without damage to nail, initial encounter; W23.0XXA Caught, crushed, jammed, or pinched between moving objects, initial encounter; Y93.9 Activity, unspecified; Y92.9 Unspecified place or not applicable; Y99.9 Unspecified external cause status; M79.7 Fibromyalgia; Z79.01 Long term (current) use of anticoagulants; Z86.718 Personal history of other venous thrombosis and embolism; Z79.899 Other long term (current) drug therapy
CPT/HCPCS: 12001; 73140; 90715; 99283

== ENCOUNTER 2021-04-10 11:48 | Outpatient (CLI) | payer MEDICARE, OTHER, SELFPAY ==
[2021-04-10 12:27] LABS: Absolute Lymphocyte Count 2.09 X10^3/uL (0.83-4.51); Absolute Neutrophil Count 1.7 X10^3/uL (2.0-7.7); Basophil# 0.05 X10^3/uL; Basophil% 1.1 % (0-1); Eosinophil# 0.27 X10^3/uL; Eosinophils% 5.8 % (0-5); Hemoglobin 13.5 g/dL (12.0-15.0); Lymphocyte # 2.09 X10^3/ul (0.83-4.51); Lymphocyte % 44.7 % (19-41); Mean Corp Hgb Conc 32.9 g/dL (32-36); Mean Corpuscular Hgb 30.7 pg (27.0-32.0); Mean Corpuscular Volume 93.2 fL (81-99); Monocyte# 0.58 X10^3/uL; Monocyte% 12.4 % (0-10); NRBC Flagged by Analyzer 0 % (0-5); Neutrophil # 1.68 X10^3/uL (2.7-7.7); Neutrophil % 35.8 % (47-70); Platelet Count 307 K/mm3 (150-450); RBC Distribution Width SD 44.5 fl (35.1-43.9); White Blood Count 4.7 K/mm3 (4.4-11.0)
[2021-04-10 12:48] LABS: Vitamin D,25 Hydroxy 21.1 ng/mL
[2021-04-10 13:02] LABS: ALB/GLOB Ratio 1.1 RATIO (0.9-2.4); AST(SGOT) 17 U/L (15-37); Alanine Aminotransfer ALT/SGPT 23 U/L (13-56); Albumin, Serum 3.5 g/dL (3.2-5.0); Alkaline Phosphatase 86 U/L (45-117); Anion Gap 7 (5-15); BUN 8 mg/dL (7-18); BUN/Creat Ratio 10.2 RATIO (10-20); Calcium,Total 8.4 mg/dL (8.5-10.1); Chloride 106 mmol/L (98-107); Creatinine, Serum 0.78 mg/dL (0.55-1.02); EST Glomerular Filtration Rate 78 mL/min (>60); Est Glom Filt Rate - Afr Amer 94 mL/min (>60); Globulin 3.2 g/dL (2.2-4.2); Glucose 63 mg/dL (74-106); Potassium 3.2 mmol/L (3.5-5.1); Protein, Total 6.7 g/dL (6.4-8.2); Sodium Level 142 mmol/L (136-145); Thyroid Stim Hormone (TSH) 2.32 uIU/mL (0.358-3.74)
== END 2021-04-10 23:59 | disposition short-term general hospital (02) ==
LOC: POLAB3 11:50
PROVIDERS: PCP Family Medicine Geriatric Medicine; Visit Provider Family Medicine Geriatric Medicine
DX: R53.83 Other fatigue (principal); E55.9 Vitamin D deficiency, unspecified
CPT/HCPCS: 36415; 80053; 82306; 84443; 85025

== ENCOUNTER 2021-04-10 12:08 | Outpatient (CLI) | payer MEDICARE, OTHER, SELFPAY ==
--- NOTE | 2021-04-10 12:13 | CT_ITS ---
STUDY: CT ABDOMEN AND PELVIS WITHOUT CONTRAST REASON FOR EXAM: Female, 66 years old. RIGHT FLANK PAIN -- . RADIATION DOSAGE (If Supplied By Facility): CTDIvol = ( 6.19 ) mGy, DLP = ( 304.62 ) mGycm TECHNIQUE: Transaxial images were obtained from the dome of the diaphragm to the symphysis pubis without oral contrast, and without intravenous contrast. Sagittal and coronal images were reconstructed. Individualized dose optimization techniques were used for this CT. COMPARISON: Comparison is made with prior study 11/26/2019. FINDINGS: Calcified granuloma in the anterior right lower lobe. Stable scarring at that site. Mild scarring in the anterior aspect of the left lower lobe. The visualized portions of the heart are within normal limits. There is a 7 mm cyst in the dome of the right lobe of the liver. Normal gallbladder and extrahepatic biliary system. Normal spleen. Normal pancreas. Normal bilateral adrenal glands. There is a 5.2 mm calculus in the midportion of the right ureter. A tiny calculus is seen just cephalad to this calculus. Normal left kidney. There is a small hiatal hernia. Normal small intestine. Normal colon. The appendix is visualized and appears normal. There is scattered atherosclerotic calcification of the abdominal aorta, without a demonstrated aneurysm. Normal inferior vena cava. There is borderline retroperitoneal lymphadenopathy with enlarged nodes no greater than 10mm in the short axis diameter. Normal urinary bladder. There is absence of the uterus consistent with a prior hysterectomy. Normal abdominal wall. Loss of the normal lumbar lordosis. CT/Abdomen/Pelvis without Cont IMPRESSION: Ureteral calculi in the midportion of the right ureter. Electronically Signed: Chicho Hercules MD at 12:39 EST , Service support ,
== END 2021-04-10 23:59 | disposition short-term general hospital (02) ==
PROVIDERS: PCP Family Medicine Geriatric Medicine; Referring Provider Family Medicine Geriatric Medicine; Visit Provider Family Medicine Geriatric Medicine
DX: R10.30 Lower abdominal pain, unspecified (principal); E55.9 Vitamin D deficiency, unspecified; R53.83 Other fatigue
CPT/HCPCS: 36415; 74176; 80053; 82306; 84443; 85025

== ENCOUNTER 2021-04-19 10:00 | Emergency (ER) | payer MEDICARE, OTHER, SELFPAY ==
[2021-04-19 10:00] VITALS: BP 141/86; PULSE 81; RESP 16; TEMP 36.9; O2SAT 100; BMI 23.0
--- NOTE | 2021-04-19 10:19 | CT_ITS ---
STUDY: CT BRAIN WITHOUT CONTRAST REASON FOR EXAM: Female, 66 years old. headache RADIATION DOSAGE (If Supplied By Facility): CTDIvol = ( 44.99 ) mGy, DLP = ( 745.49 ) mGycm TECHNIQUE: Transaxial CT imaging of the brain was performed without administration of intravenous contrast material. Individualized dose optimization techniques were used for this CT. COMPARISON: 09/12/2020 FINDINGS: Normal soft tissue structures. Normal calvarium. Normal size ventricles and extra-axial spaces for the patient''s age. Normal white matter tracts of the cerebral hemispheres. There is no intracranial hemorrhage. There are no findings of an acute ischemic infarction. Again noted is sphenoid sinus disease with frothy appearance CT/Brain/Head without Contrast IMPRESSION: Acute sphenoid sinus disease. No acute intracranial abnormality. Electronically Signed: Pamela Duran MD at 11:24 EST Tel , Service support ,
--- NOTE | 2021-04-19 10:21 | EKG12_ITS ---
Test Reason : Blood Pressure : / mmHG Vent. Rate : 065 BPM Atrial Rate : 065 BPM P-R Int : 168 ms QRS Dur : 088 ms QT Int : 448 ms P-R-T Axes : 066 007 044 degrees QTc Int : 465 ms Normal sinus rhythm Nonspecific ST abnormality Abnormal ECG Confirmed by SHIRA CEBALLOS, REZA ([id number]), editorial assistant JASON CAIN ([id number]) on 04/21/2021 10:47:15 A M Referred By: RAJI Confirmed By:LISSY SILVA MD
--- NOTE | 2021-04-19 10:23 | EDS_ITS ---
HPI History of Present Illness Chief Complaint: Nausea/Vomiting Detail of Chief Complaint: Nausea, vomiting, headache Informant: patient Onset/Context/Timing Onset: Today Current Severity: Moderate Maximum Severity: Moderate Narrative Narrative: Patient presents secondary nausea and vomiting that started around 130 this morning. She then developed a headache. She reports abdominal pain only from the vomiting. She denies fever or chills. She did start a new medication last night, Mirapex. She is unsure if this is related. She felt well throughout the day yesterday. [facility] Medical History (Updated 04/19/21 @ 12:[address] Charla Tan MD) DVT (deep venous thrombosis) Fibromyalgia GERD (gastroesophageal reflux disease) Headaches, cluster High cholesterol Hypothyroidism Melanoma Recurrent deep vein thrombosis of lower extremity Rheumatic fever Scleroderma Home Medications pregabalin [Lyrica] 75 mg PO TID 06/08/13 [History Last Taken 02/26/19] pantoprazole 40 mg PO BID 09/24/18 [History Last Taken 02/26/19] hydroxychloroquine 200 mg PO DAILYCM 11/26/19 [History Last Taken Unknown] levothyroxine 25 mcg PO DAILY 11/26/19 [History Last Taken Unknown] meclizine 25 mg PO 4X/DAY PRN PRN #20 tab 09/12/20 [Rx Last Taken Unknown] oxycodone myristate [Xtampza ER] 13.5 mg PO BID 09/12/20 [History Last Taken Unknown] estradiol 1 mg tablet 1 mg PO DAILY 12/23/20 [History Last Taken Unknown] warfarin 2 mg tablet 2 mg PO DAILY 12/23/20 [History Last Taken Unknown] hydrocodone-acetaminophen 1 tab PO QHS PRN 3 Days #10 tab 03/22/21 [Rx Last Taken Unknown] ondansetron 4 mg PO Q8H PRN #10 tab 04/19/21 [Rx Last Taken Unknown] Allergy/AdvReac Type Severity Reaction Status Date / Time No Known Allergies Allergy Verified 04/19/21 10:02 Family History Sister Ovarian cancer Father CAD (coronary artery disease) Brother CAD (coronary artery disease) Other Asthma Breast cancer Cancer Surgical History History of appendectomy History of hernia repair History of hysterectomy Social History household members: spouse Smoking Status: Never smoker second hand exposure: No alcohol intake: never substance use type: does not use what type of physical activity do you participate in: walking frequency: 3-4 times per week lesly/denominational: None seatbelt use: always do you feel safe at home: Yes ROS ROS ED Constitutional Constitutional ED: Denies chills or fever(s) Eyes Eyes: Denies change in vision ENT ENT ED: Denies sore throat Cardiovascular Cardiovascular: Denies chest pain Respiratory/Chest Respiratory/Chest: Denies cough or dyspnea Gastrointestinal Gastrointestinal: Reports abdominal pain, nausea and vomiting; Denies diarrhea Genitourinary Genitourinary ED: Denies dysuria Musculoskeletal Musculoskeletal: Denies back pain Integumentary Denies rash Neurologic Neurologic: Reports headache(s); Denies paresthesias or weakness Psychiatric Psychiatric: Denies anxiety or depression Allergic/Immunologic Allergic/Immunologic ED: Denies urticaria EXAM Physical Exam Const Vital Signs: 04/19/21 10:00 Temperature 98.4 F Temperature Source Temporal Pulse Rate 81 Respiratory Rate 16 Blood Pressure 141/86 H Blood Pressure Mean 104 Pulse Ox 100 Oxygen Delivery Method Room Air Positive well nourished and well developed General Appearance ED: well developed HEENT Reports normocephalic and head/scalp atraumatic Eyes PERRL and EOMs intact bilaterally Neck supple Chest Wall inspection of chest normal and palpation of chest normal Resp normal respiratory effort and clear to auscultation bilaterally Cardio regular rate and regular rhythm GI Palpation: soft and tender epigastric; Negative for guarding or rebound tendern ess present Back/Spine no CVA tenderness Extremity normal to inspection Neuro oriented x3 and no sensory deficits noted Sensorium / Orientation: alert Motor Exam: strength 5/5 throughout Psych Mood & Affect: anxious Skin no rashes or lesions noted MDM MDM MDM Narrative Medical decision making narrative: Patient initially given Reglan and Benadryl. Lab work, head CT, EKG obtained. Lab Data Attestation: I reviewed the patient's lab results. Labs: Laboratory Results - last 24 hr 04/19/21 04/19/21 04/19/21 10:30 10:30 10:30 WBC 5.4 RBC 4.82 Hgb 14.9 Hct 44.4 MCV 92.1 MCH 30.9 MCHC 33.6 RDW Std Deviation 43.6 RDW Coeff of Idalia 13.0 Plt Count 280 MPV 9.4 Immature Gran % (Auto) 0.400 Neut % (Auto) 51.6 Lymph % (Auto) 29.3 Merrick % (Auto) 12.3 H Eos % (Auto) 5.8 H Baso % (Auto) 0.6 Absolute Neuts (auto) 2.8 Absolute Lymphs (auto) 1.57 Nucleated RBC % 0 PT 23.4 H INR 2.2 Sodium 136 Potassium 3.4 L Chloride 99 Carbon Dioxide 31.0 Anion Gap 6 BUN 10 Creatinine 0.70 Estim Creat Clear Calc 42.59 Est GFR (MDRD) Af Amer 107 Est GFR (MDRD) Non-Af 88 BUN/Creatinine Ratio 14.3 Glucose 100 Calcium 8.8 Total Bilirubin 1.10 H Direct Bilirubin 0.22 AST 24 ALT 20 Alkaline Phosphatase 91 Troponin I High Sens 5 Total Protein 7.7 Albumin 3.9 Globulin 3.8 Lipase 62 L Radiography Diagnostic Testing: Clinical Impression(s) from Imaging Studies Brain CT 04/19/21 10:19 IMPRESSION: Acute sphenoid sinus disease. No acute intracranial abnormality. Electronically Signed: Pamela Duran MD at 11:24 EST Tel , Service support , EKG Initial EKG: Attestation: I personally reviewed and interpreted this EKG as follows: Interpretation: Sinus Rhythm (Sinus at 65 with no acute ischemia.) Treatment and Re-Evaluation Comments:: On repeat evaluation patient reported only mild improvement in her headache and nausea. Lab work is reviewed and unremarkable. Head CT shows no acute intracranial abnormality. Patient is given 2 mg of morphine, 15 mg Toradol, 12.5 mg IM Phenergan. On final repeat examination patient does report improvement in her symptoms. She will be discharged home with family members. Prescription for Zofran will be sent to the pharmacy for her. Discharge Plan Triage Chief Complaint: Nausea/Vomiting ED Provider: Charla Tan Dx/Rx/DC Orders Clinical Impression: Vomiting, Headache Instructions: ED, Migraine (Classical), ED Vomiting (Adult) Prescriptions: New ondansetron 4 mg tablet,disintegrating 4 mg PO Q8H PRN (Reason: nausea and vomiting) Qty: 10 RF: 0 No Action estradiol 1 mg tablet 1 mg PO DAILY RF: 0 warfarin 2 mg tablet 2 mg PO DAILY RF: 0 pregabalin [Lyrica] 100 MG capsule 75 mg PO TID RF: 0 pantoprazole 20 MG tablet 40 mg PO BID RF: 0 levothyroxine 88 MCG tablet 25 mcg PO DAILY RF: 0 hydroxychloroquine 200 MG tablet 200 mg PO DAILYCM RF: 0 Xtampza ER 13.5 mg cap,sprinkl,ER12hr(DONT CRUSH) 13.5 mg PO BID RF: 0 meclizine 25 mg tablet 25 mg PO 4X/DAY PRN PRN (Reason: Dizziness) Qty: 20 RF: 0 hydrocodone-acetaminophen 5-325 mg tablet 1 tab PO QHS PRN (Reason: pain) 3 Days Qty: 10 RF: 0 Primary Care Provider: Wilton Navas Chi Referrals: Wilton Navas Chi, MD [Primary Care Provider] - 3-5 Days if not improving Disposition Disposition: Home, Self Care
[2021-04-19] MEDS: DiphenhydrAMINE 50 MG/ML Syringe 25 MG IV (10:34)
[2021-04-19] MEDS: Metoclopramide 10 MG/2 ML Vial IV (10:34)
[2021-04-19 10:39] LABS: Absolute Lymphocyte Count 1.57 X10^3/uL (0.83-4.51); Absolute Neutrophil Count 2.8 X10^3/uL (2.0-7.7); Basophil# 0.03 X10^3/uL; Basophil% 0.6 % (0-1); Eosinophil# 0.31 X10^3/uL; Eosinophils% 5.8 % (0-5); Hematocrit 44.4 % (37-47); Hemoglobin 14.9 g/dL (12.0-15.0); Lymphocyte # 1.57 X10^3/ul (0.83-4.51); Lymphocyte % 29.3 % (19-41); Mean Corp Hgb Conc 33.6 g/dL (32-36); Mean Corpuscular Hgb 30.9 pg (27.0-32.0); Mean Corpuscular Volume 92.1 fL (81-99); Mean Platelet Vol. 9.4 fl (6.2-12.0); Monocyte# 0.66 X10^3/uL; Monocyte% 12.3 % (0-10); NRBC Flagged by Analyzer 0 % (0-5); Neutrophil # 2.76 X10^3/uL (2.7-7.7); Neutrophil % 51.6 % (47-70); Platelet Count 280 K/mm3 (150-450); RBC Distribution Width SD 43.6 fl (35.1-43.9); Red Blood Count 4.82 M/mm3 (4.2-5.4); White Blood Count 5.4 K/mm3 (4.4-11.0)
[2021-04-19 10:47] LABS: International Normalized Ratio 2.2; Prothrombin Time (Protime)PT. 23.4 SECONDS (11.7-14.9)
[2021-04-19 10:57] LABS: AST(SGOT) 24 U/L (15-37); Alanine Aminotransfer ALT/SGPT 20 U/L (13-56); Albumin, Serum 3.9 g/dL (3.2-5.0); Alkaline Phosphatase 91 U/L (45-117); Anion Gap 6 (5-15); BUN 10 mg/dL (7-18); BUN/Creat Ratio 14.3 RATIO (10-20); Bilirubin, Direct 0.22 mg/dL (0.00-0.30); Calcium,Total 8.8 mg/dL (8.5-10.1); Chloride 99 mmol/L (98-107); EST Glomerular Filtration Rate 88 mL/min (>60); Est Glom Filt Rate - Afr Amer 107 mL/min (>60); Estimated Creatinine Clearance 42.59 ml/min; Globulin 3.8 g/dL (2.2-4.2); Glucose 100 mg/dL (74-106); Lipase 62 U/L (73-393); Potassium 3.4 mmol/L (3.5-5.1); Protein, Total 7.7 g/dL (6.4-8.2); Sodium Level 136 mmol/L (136-145); Troponin-I HS 5 pg/mL (3.0-54.0)
[2021-04-19] MEDS: Morphine 2 MG/ML Syringe IV (11:49)
[2021-04-19] MEDS: Ketorolac 15 MG/ML Vial IV (11:49)
[2021-04-19] MEDS: proMETHazine 25 MG/ML Syringe 12.5 MG IM (11:49)
[2021-04-19 13:06] VITALS: BP 132/79; PULSE 81
== END 2021-04-19 13:10 | disposition home or self-care (01) ==
PROVIDERS: Emergency Provider Emergency Medicine; PCP Family Medicine Geriatric Medicine; Visit Provider Emergency Medicine
DX: R11.2 Nausea with vomiting, unspecified (principal); R51.9 Headache, unspecified; Z86.718 Personal history of other venous thrombosis and embolism
CPT/HCPCS: 70450; 80048; 80076; 83690; 84484; 85025; 85610; 93005; 96361; 96372; 96374; 96375; 99284; J7040; A4216

== ENCOUNTER 2021-05-26 17:31 | Outpatient (CLI) | payer MEDICARE, OTHER, SELFPAY ==
--- NOTE | 2021-05-26 17:34 | CT_ITS ---
STUDY: CT ABDOMEN AND PELVIS WITHOUT CONTRAST REASON FOR EXAM: Female, 66 years old. Flank pain RADIATION DOSAGE (If Supplied By Facility): CTDIvol = ( 6.16 ) mGy, DLP = ( 298.62 ) mGycm TECHNIQUE: Transaxial images were obtained from the dome of the diaphragm to the symphysis pubis with oral contrast, and without intravenous contrast. Sagittal and coronal images were reconstructed. Individualized dose optimization techniques were used for this CT. COMPARISON: 04/10/2021 FINDINGS: There are chronic interstitial fibrotic changes of the lung bases. The visualized portions of the heart are within normal limits. Liver is unremarkable aside from a stable 7 mm simple cyst in the dome of the right lobe. Normal gallbladder and extrahepatic biliary system. Normal spleen. Normal pancreas. Normal bilateral adrenal glands. No obstructive uropathy, there are punctate nonobstructing renal stones. I believe the previously identified stones in the right ureter actually extrinsic to the right ureter, best seen on the axial images of the right ureter is traced from the UPJ to the bladder There is a small hiatal hernia, the stomach is distended with food.. Nondistended fluid-filled small bowel loops are noted consistent with ileus. Retained stool noted throughout the majority of the colon which may be impacted. The appendix is visualized and appears normal. Appendix seen on coronal recon images 54-56 Normal abdominal aorta. Normal inferior vena cava. Normal retroperitoneum. Normal urinary bladder. There is absence of the uterus consistent with a prior hysterectomy. Normal abdominal wall. There are mild degenerative changes of the visualized lumbar spine, and pelvis. CT/Abdomen/Pelvis without Cont IMPRESSION: Nonobstructing nephrolithiasis Stable simple hepatic cyst, no specific follow-up needed. Retained stool throughout the colon which may be impacted, this is likely responsible for small bowel ileus. No free intraperitoneal fluid, air, or suspicious adenopathy. Normal appendix visualized Electronically Signed: Trey Zambrano MD at 18:59 EST ,
== END 2021-05-26 23:59 | disposition home or self-care (01) ==
LOC: CT 17:32
PROVIDERS: PCP Family Medicine Geriatric Medicine; Visit Provider Urology
DX: N20.0 Calculus of kidney (principal)
CPT/HCPCS: 74176

== ENCOUNTER 2021-05-30 09:05 | Outpatient (CLI) | payer MEDICARE, OTHER, SELFPAY ==
--- NOTE | 2021-05-30 09:08 | RAD_ITS ---
STUDY: X-RAY - ESOPHAGUS (BARIUM SWALLOW) WITH FLUOROSCOPY REASON FOR EXAM: Female, 66 years old. DYSPHAGIA TECHNIQUE: 19 view(s) of the esophagus were obtained following swallowing of barium. FLUOROSCOPY TIME (if supplied): (47 seconds) minutes/seconds COMPARISON: Comparison is made with prior study dated 10/12/2019. FINDINGS: There is no demonstrated esophageal foreign body. Findings suggestive of achalasia with narrowing at the gastroesophageal junction. The patient ingested a 12 mm tablet of barium. The tablet described at the gastroesophageal junction. There is atherosclerotic calcification of the aortic arch with tortuosity of the descending aorta. Normal visualized pulmonary parenchyma. There are diffuse degenerative changes of the visualized thoracic spine. RAD/Esophagus Dual Contrast IMPRESSION: Findings suggestive of achalasia with trapping of the 12 mm tablet of barium at the gastroesophageal junction. Electronically Signed: Chicho Hercules MD at 15:14 EST ,
== END 2021-05-30 23:59 | disposition home or self-care (01) ==
LOC: RAD 09:05
PROVIDERS: PCP Family Medicine Geriatric Medicine; Referring Provider Internal Medicine Gastroenterology; Visit Provider Internal Medicine Gastroenterology
DX: R13.10 Dysphagia, unspecified (principal)
CPT/HCPCS: 74221

== ENCOUNTER 2021-06-24 11:28 | Outpatient (CLI) | payer MEDICARE, OTHER, SELFPAY ==
[2021-06-24 12:15] LABS: Absolute Lymphocyte Count 0.83 X10^3/uL (0.83-4.51); Absolute Neutrophil Count 5.3 X10^3/uL (2.0-7.7); Basophil# 0.02 X10^3/uL; Basophil% 0.3 % (0-1); Eosinophil# 0.04 X10^3/uL; Eosinophils% 0.6 % (0-5); Hematocrit 38.2 % (37-47); Hemoglobin 13.3 g/dL (12.0-15.0); Lymphocyte # 0.83 X10^3/ul (0.83-4.51); Lymphocyte % 12.5 % (19-41); Mean Corp Hgb Conc 34.8 g/dL (32-36); Mean Corpuscular Hgb 31.9 pg (27.0-32.0); Mean Corpuscular Volume 91.6 fL (81-99); Mean Platelet Vol. 10.1 fl (6.2-12.0); Monocyte# 0.38 X10^3/uL; Monocyte% 5.7 % (0-10); NRBC Flagged by Analyzer 0 % (0-5); Neutrophil # 5.32 X10^3/uL (2.7-7.7); Neutrophil % 80.4 % (47-70); Platelet Count 194 K/mm3 (150-450); RBC Distribution Width CV 12.3 % (11.6-14.6); RBC Distribution Width SD 41.2 fl (35.1-43.9); Red Blood Count 4.17 M/mm3 (4.2-5.4); White Blood Count 6.6 K/mm3 (4.4-11.0)
--- NOTE | 2021-06-24 12:30 | RAD_ITS ---
STUDY: X-RAY - ABDOMEN/PELVIS REASON FOR EXAM: Female, 66 years old. NAUSEA AND VOMITING TECHNIQUE: AP supine and upright views of the abdomen and pelvis. COMPARISON: None. FINDINGS: Normal visualized lung bases. There is an unremarkable bowel gas pattern. There is no demonstrated free abdominal air. The visualized liver, spleen and kidneys are grossly normal in size and morphology. Normal soft tissue structures. Normal visualized osseous structures. RAD/Abd Inc Decub and/or Erect IMPRESSION: Normal x-ray examination of the abdomen and pelvis. Electronically Signed: Trey Zambrano MD at 15:31 EDT ,
[2021-06-24 13:04] LABS: ALB/GLOB Ratio 1.1 RATIO (0.9-2.4); AST(SGOT) 27 U/L (15-37); Alanine Aminotransfer ALT/SGPT 19 U/L (13-56); Albumin, Serum 3.2 g/dL (3.2-5.0); Alkaline Phosphatase 87 U/L (45-117); Amylase 54 U/L (25-115); Anion Gap 7 (5-15); BUN 10 mg/dL (7-18); BUN/Creat Ratio 16.6 RATIO (10-20); Calcium,Total 7.9 mg/dL (8.5-10.1); Chloride 108 mmol/L (98-107); EST Glomerular Filtration Rate 105 mL/min (>60); Est Glom Filt Rate - Afr Amer 127 mL/min (>60); Globulin 2.9 g/dL (2.2-4.2); Glucose 110 mg/dL (74-106); Lipase 41 U/L (73-393); Potassium 3.7 mmol/L (3.5-5.1); Protein, Total 6.1 g/dL (6.4-8.2); Sodium Level 138 mmol/L (136-145)
== END 2021-06-24 23:59 | disposition home or self-care (01) ==
PROVIDERS: PCP Family Medicine Geriatric Medicine; Visit Provider Family Medicine Geriatric Medicine
DX: R11.2 Nausea with vomiting, unspecified (principal); N39.0 Urinary tract infection, site not specified
CPT/HCPCS: 36415; 74019; 80053; 82150; 83690; 85025; 87086; 87088

== ENCOUNTER 2021-06-25 10:34 | Outpatient (CLI) | payer MEDICARE, OTHER, SELFPAY ==
[2021-06-25 12:44] LABS: Vitamin D,25 Hydroxy 24.6 ng/mL
[2021-06-25 12:47] LABS: Anion Gap 7 (5-15); BUN 12 mg/dL (7-18); BUN/Creat Ratio 15.1 RATIO (10-20); Calcium,Total 7.8 mg/dL (8.5-10.1); Chloride 111 mmol/L (98-107); EST Glomerular Filtration Rate 76 mL/min (>60); Est Glom Filt Rate - Afr Amer 92 mL/min (>60); Glucose 90 mg/dL (74-106); Potassium 3.8 mmol/L (3.5-5.1); Sodium Level 142 mmol/L (136-145)
[2021-06-25 13:14] LABS: PTHIN 85.3 pg/mL (18.4-80.1)
== END 2021-06-25 23:59 | disposition home or self-care (01) ==
LOC: POLAB3 10:35
PROVIDERS: PCP Family Medicine Geriatric Medicine; Visit Provider Family Medicine Geriatric Medicine
DX: E83.51 Hypocalcemia (principal)
CPT/HCPCS: 36415; 80048; 82306; 83735; 83970

== ENCOUNTER 2021-06-27 19:29 | Emergency (ER) | payer MEDICARE, OTHER, SELFPAY ==
[2021-06-27 19:30] VITALS: BP 183/84; PULSE 71; RESP 16; TEMP 36.7; O2SAT 100; BMI 23.8
--- NOTE | 2021-06-27 19:54 | EX.ED.UPPERE ---
HPI History of Present Illness Chief Complaint: Laceration Informant: patient Occured/Mechanism Mechanism/Context: Yes injury Onset/Context/Timing Onset: Today Context: Sudden Onset Timing: Continuous Current Severity: Mild Maximum Severity: Mild Associated Symptoms Associated Symptoms: Negative for Parasthesia, Weakness and Loss of Funtion Narrative Narrative: 66-year-old female on Coumadin for history of DVTs. Was getting some out of her closet caught her right forearm on a ticket dispenser changer causing a laceration. This occurred within the last hour. Her tetanus is up-to-date. She denies any other complaints. Had her Coumadin level checked the other day. Tetanus Immunization: <5 years Prior similar symptoms: No Recent Illness/Hospitalization: No PFSH PFS Medical History DVT (deep venous thrombosis) Fibromyalgia GERD (gastroesophageal reflux disease) Headaches, cluster High cholesterol Hypothyroidism Melanoma Recurrent deep vein thrombosis of lower extremity Rheumatic fever Scleroderma Home Medications pregabalin [Lyrica] 75 mg PO TID 06/08/13 [History Last Taken 02/26/19] pantoprazole 40 mg PO BID 09/24/18 [History Last Taken 02/26/19] hydroxychloroquine 200 mg PO DAILYCM 11/26/19 [History Last Taken Unknown] levothyroxine 25 mcg PO DAILY 11/26/19 [History Last Taken Unknown] meclizine 25 mg PO 4X/DAY PRN PRN #20 tab 09/12/20 [Rx Last Taken Unknown] oxycodone myristate [Xtampza ER] 13.5 mg PO BID 09/12/20 [History Last Taken Unknown] estradiol 1 mg tablet 1 mg PO DAILY 12/23/20 [History Last Taken Unknown] warfarin 2 mg tablet 2 mg PO DAILY 12/23/20 [History Last Taken Unknown] hydrocodone-acetaminophen 1 tab PO QHS PRN 3 Days #10 tab 03/22/21 [Rx Last Taken Unknown] ondansetron 4 mg PO Q8H PRN #10 tab 04/19/21 [Rx Last Taken Unknown] Allergy/AdvReac Type Severity Reaction Status Date / Time No Known Allergies Allergy Verified 05/23/21 14:53 Family History Sister Ovarian cancer Father CAD (coronary artery disease) Brother CAD (coronary artery disease) Other Asthma Breast cancer Cancer Surgical History History of appendectomy History of hernia repair History of hysterectomy Social History household members: spouse Smoking Status: Never smoker second hand exposure: No alcohol intake: never substance use type: does not use what type of physical activity do you participate in: walking frequency: 3-4 times per week lesly/methodist: None seatbelt use: always do you feel safe at home: Yes ROS ROS ED ROS Narrative Denies recent illness other than she had gastroenteritis earlier this week that is now resolved. Review of Systems ROS Unobtainable: Denies due to encephalopathy Constitutional Constitutional ED: Denies fever(s) Eyes Eyes: Denies change in vision ENT ENT ED: Denies ear pain Cardiovascular Cardiovascular: Denies chest pain Respiratory/Chest Respiratory/Chest: Denies dyspnea Gastrointestinal Gastrointestinal: Reports nausea and vomiting; Denies abdominal pain Genitourinary Genitourinary ED: Denies dysuria Musculoskeletal Musculoskeletal: Denies myalgias Integumentary Denies rash Neurologic Neurologic: Denies headache(s) Psychiatric Psychiatric: Denies depression Endocrine Endocrinology: Denies polyuria Hematologic/Lymphatic Hematologic/Lymphatic: Denies easy bruising Allergic/Immunologic Allergic/Immunologic ED: Denies urticaria EXAM Physical Exam Narrative Exam Narrative: 58-year-old female no acute distress. HEENT exam unremarkable. Lungs clear. Heart regular rhythm. Moving all 4 extremities. Neurovascular intact. Right forearm ulnar side bleeding from the proximal third there is a V-shaped flap laceration that will need repaired. Currently there is no active bleeding. 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 Normal radial pulse. No infection. No foreign body. Const Vital Signs: 06/27/21 19:30 Temperature 98.1 F Temperature Source Temporal Pulse Rate 71 Respiratory Rate 16 Blood Pressure 183/84 H Blood Pressure Mean 117 Pulse Ox 100 Oxygen Delivery Method Room Air Positive well nourished and well developed; Negative for obese, cachectic, contractures or unkempt General Appearance ED: well developed and NAD; Negative for unkempt, cachectic, contractures, cyanotic or diaphoretic Nutritional Appearance: Negative for cachectic or obese HEENT Reports moist mucous membranes normocephalic and atraumatic Eyes PERRL and EOMs intact bilaterally Neck full ROM and supple General: Negative for tenderness Chest Wall inspection of chest normal and palpation of chest normal Resp normal respiratory effort and clear to auscultation bilaterally Auscultation: Negative for rales or rhonchi Cardio regular rate, regular rhythm, S1 normal heart sound, S2 normal heart sound and no murmurs GI non-tender, non-distended and no masses Auscultation: normoactive bowel sounds Palpation: soft; Negative for tender, guarding or rebound tenderness present Back/Spine no CVA tenderness Cervical Spine: Negative for cervical spine tenderness Thoracic Spine / Upper Back: Negative for thoracic spinal tenderness Extremity normal to inspection and full ROM Extremity Narrative: Proximal right forearm palmar side V-shaped laceration. Approximately 3 cm in length. Need to be repaired. No active bleeding. No foreign body. No infection. Distally neurovascularly intact. Neuro oriented x3 and moves all extremities Sensorium / Orientation: alert, oriented to person, oriented to place and oriented to time Motor Exam: strength 5/5 throughout Psych mental status grossly normal Appearance: Negative for unkempt Mood & Affect: Negative for depressed Skin Lesions: no lesions Rashes: no rashes Trauma: laceration MDM MDM MDM Narrative Medical decision making narrative: Right forearm V-shaped laceration. Tetanus up-to-date. Procedures Lacerations Right proximal forearm laceration: Length: 1.97 in Depth: Sub Q Shape: Flap Prep: Dom Laceration repair: Irrigated, Lidocaine and Skin sutures Number of Sutures/Luigi: 5 Suture Information: Ethilon, Simple and 4-0 Comment: Right proximal forearm palmar side flap laceration about 5 cm in length. Local anesthetized lidocaine. Seen with Tomas. Washed with saline irrigated. Explored. Closed using 5 simple erupted 4-0 Ethilon sutures. Proper hemostasis wound closure is obtained. Patient instructed on wound care. Suture removal in 10 days. Discharge Plan Triage Chief Complaint: Laceration ED Provider: Hubert Perez Dx/Rx/DC Orders Clinical Impression: Laceration of right forearm Instructions: ED Laceration: All Closures Prescriptions: No Action estradiol 1 mg tablet 1 mg PO DAILY RF: 0 warfarin 2 mg tablet 2 mg PO DAILY RF: 0 pregabalin [Lyrica] 100 MG capsule 75 mg PO TID RF: 0 pantoprazole 20 MG tablet 40 mg PO BID RF: 0 levothyroxine 88 MCG tablet 25 mcg PO DAILY RF: 0 hydroxychloroquine 200 MG tablet 200 mg PO DAILYCM RF: 0 Xtampza ER 13.5 mg cap,sprinkl,ER12hr(DONT CRUSH) 13.5 mg PO BID RF: 0 meclizine 25 mg tablet 25 mg PO 4X/DAY PRN PRN (Reason: Dizziness) Qty: 20 RF: 0 hydrocodone-acetaminophen 5-325 mg tablet 1 tab PO QHS PRN (Reason: pain) 3 Days Qty: 10 RF: 0 ondansetron 4 mg tablet,disintegrating 4 mg PO Q8H PRN (Reason: nausea and vomiting) Qty: 10 RF: 0 Primary Care Provider: Wilton Navas Chi Referrals: Wilton Navas Chi, MD [Primary Care Provider] - 10 Day for suture removal Activity Restrictions/Additional Instructions: Keep wound clean and dry. Gently clean and dry daily. Apply anabolic ointment. If our dressings is dry and clean you can leave it on for 3 or 4 days. If it gets dirty or wet change it. Your skin is very thin it would be very easy to tear the stitches out. Stitches out in 10 days. Disposition Disposition: Home, Self Care
[2021-06-27] MEDS: Lidocaine 1% (20 ml mdv) 20 ML Vial 10 ML INFILT (20:03)
== END 2021-06-27 21:08 | disposition home or self-care (01) ==
PROVIDERS: Emergency Provider Emergency Medicine; PCP Family Medicine Geriatric Medicine; Visit Provider Emergency Medicine
DX: S51.811A Laceration without foreign body of right forearm, initial encounter (principal); Z79.01 Long term (current) use of anticoagulants; Z86.718 Personal history of other venous thrombosis and embolism; X58.XXXA Exposure to other specified factors, initial encounter
CPT/HCPCS: 12001; 99283

== ENCOUNTER 2021-06-30 10:35 | Outpatient (CLI) | payer MEDICARE, OTHER, SELFPAY ==
[2021-06-30 11:29] LABS: Anion Gap 6 (5-15); BUN 11 mg/dL (7-18); BUN/Creat Ratio 13.7 RATIO (10-20); Calcium,Total 8.4 mg/dL (8.5-10.1); Chloride 104 mmol/L (98-107); EST Glomerular Filtration Rate 75 mL/min (>60); Est Glom Filt Rate - Afr Amer 91 mL/min (>60); Glucose 82 mg/dL (74-106); Potassium 3.2 mmol/L (3.5-5.1); Sodium Level 141 mmol/L (136-145)
[2021-06-30 11:36] LABS: Vitamin D,25 Hydroxy 19.8 ng/mL
== END 2021-06-30 23:59 | disposition home or self-care (01) ==
LOC: POLAB3 10:37
PROVIDERS: PCP Family Medicine Geriatric Medicine; Visit Provider Family Medicine Geriatric Medicine
DX: E55.9 Vitamin D deficiency, unspecified (principal); E83.51 Hypocalcemia
CPT/HCPCS: 36415; 80048; 82306

== ENCOUNTER 2021-07-15 19:54 | Emergency (ER) | payer MEDICARE, OTHER, SELFPAY ==
[2021-07-15 19:55] VITALS: BP 130/85; PULSE 132; RESP 25; TEMP 37.8; O2SAT 97; BMI 24.5
--- NOTE | 2021-07-15 20:44 | EKG12_ITS ---
Test Reason : DYSRHYTHMIA Blood Pressure : / mmHG Vent. Rate : 118 BPM Atrial Rate : 118 BPM P-R Int : 164 ms QRS Dur : 076 ms QT Int : 322 ms P-R-T Axes : 070 -69 065 degrees QTc Int : 451 ms Sinus tachycardia Left axis deviation Low voltage QRS (Limb Leads) Poor R wave progression Inferior MS, age undetermined, cannot be excluded Nonspecific ST abnormality Abnormal ECG Confirmed by TOSIHA CEBALLOS, OPAL ([id number]), editorial assistant JASON CAIN ([id number]) on 07/17/2021 10:56:06 AM Referred By: KACIE Confirmed By:OPAL POPE MD
[2021-07-15 20:58] LABS: Absolute Lymphocyte Count 0.51 X10^3/uL (0.83-4.51); Absolute Neutrophil Count 7.5 X10^3/uL (2.0-7.7); Basophil# 0.01 X10^3/uL; Basophil% 0.1 % (0-1); Eosinophil# 0.04 X10^3/uL; Eosinophils% 0.5 % (0-5); Hematocrit 44.7 % (37-47); Hemoglobin 15.4 g/dL (12.0-15.0); Lymphocyte # 0.51 X10^3/ul (0.83-4.51); Lymphocyte % 6.2 % (19-41); Mean Corp Hgb Conc 34.5 g/dL (32-36); Mean Corpuscular Hgb 31.4 pg (27.0-32.0); Mean Corpuscular Volume 91.2 fL (81-99); Mean Platelet Vol. 9.1 fl (6.2-12.0); Monocyte# 0.13 X10^3/uL; Monocyte% 1.6 % (0-10); NRBC Flagged by Analyzer 0 % (0-5); Neutrophil # 7.45 X10^3/uL (2.7-7.7); Neutrophil % 91.2 % (47-70); POSITIVE DIFFERENTIAL YES; Platelet Count 233 K/mm3 (150-450); RBC Distribution Width CV 12.2 % (11.6-14.6); RBC Distribution Width SD 40.9 fl (35.1-43.9); White Blood Count 8.2 K/mm3 (4.4-11.0)
--- NOTE | 2021-07-15 20:58 | EX.ED.DYSGE1 ---
HPI History of Present Illness Chief Complaint: Abd Pain Informant: patient Onset/Context/Timing Onset: Today Context: Gradual Onset Timing: Continuous Quality: pain Location: both thighs, abd diffusely, head globally Current Severity: Severe Maximum Severity: Severe Worsened by: sitting Relieved by: nothing Associated Symptoms Associated Symptoms: n/v Narrative Narrative: Patient states gradually today she started spontaneously having severe pain in both of her thighs. Also around the same time started having a severe headache globally, and subsequently started having nausea and vomiting along with abdominal pain from the vomiting. She states she has never had this before (although she was here for a visit in March with similar complaints except for her legs). She states she is in severe pain. She denies any unilateral symptoms in her extremities or abdomen/chest, she denies any chest pain, shortness of breath. No neck pain or stiffness. She denies any numbness or weakness in her legs or arms. She denies any injury. She denies any bowel or bladder dysfunction. She states she went to urinate and had trouble sitting because the pain in her thighs was so severe, however she had no trouble actually urinating, it was more the position of sitting on the toilet that was the issue. She states she normally is on warfarin but has stopped it for the past 4 or 5 days because she has an EGD or esophageal manometry coming up. She is not able to talk about details with this very well because she is in such severe pain. [facility] Medical History DVT (deep venous thrombosis) Fibromyalgia GERD (gastroesophageal reflux disease) Headaches, cluster High cholesterol Hypothyroidism Melanoma Recurrent deep vein thrombosis of lower extremity Rheumatic fever Scleroderma Home Medications pregabalin [Lyrica] 75 mg PO TID 06/08/13 [History Last Taken 02/26/19] hydroxychloroquine 200 mg PO DAILYCM 11/26/19 [History Last Taken Unknown] levothyroxine 75 mcg PO DAILY 11/26/19 [History Last Taken Unknown] oxycodone myristate [Xtampza ER] 13.5 mg PO BID 09/12/20 [History Last Taken Unknown] estradiol 1 mg tablet 1 mg PO DAILY 12/23/20 [History Last Taken Unknown] warfarin 2 mg tablet 2 mg PO DAILY 12/23/20 [History Last Taken Unknown] amoxicillin-pot clavulanate 875 mg PO Q12H #20 tablet 07/15/21 [Rx Last Taken Unknown] metoclopramide HCl 10 mg PO Q6H PRN #20 tab 07/15/21 [Rx Last Taken Unknown] Allergy/AdvReac Type Severity Reaction Status Date / Time No Known Allergies Allergy Verified 07/15/21 19:55 Family History Sister Ovarian cancer Father CAD (coronary artery disease) Brother CAD (coronary artery disease) Other Asthma Breast cancer Cancer Surgical History History of appendectomy History of hernia repair History of hysterectomy Social History household members: spouse Smoking Status: Never smoker second hand exposure: No alcohol intake: never substance use type: does not use what type of physical activity do you participate in: walking frequency: 3-4 times per week lesly/sikhism: None seatbelt use: always do you feel safe at home: Yes ROS ROS ED Constitutional Constitutional ED: Denies chills or fever(s) Eyes Eyes: Denies change in vision or diplopia ENT ENT ED: Denies rhinorrhea or sore throat Cardiovascular Cardiovascular: Denies chest pain or palpitations Respiratory/Chest Respiratory/Chest: Denies cough or dyspnea Gastrointestinal Gastrointestinal: Reports abdominal pain, nausea and vomiting; Denies diarrhea, melena or rectal bleeding Genitourinary Genitourinary ED: Denies dysuria or hematuria Musculoskeletal Musculoskeletal: Reports as per HPI and extremity pain; Denies back pain or neck pain Integumentary Denies abscess or rash Neurologic Neurologic: Denies headache(s), paresthesias or weakness Psychiatric Psychiatric: Reports anxiety; Denies suicidal thoughts EXAM Physical Exam Const Vital Signs: 07/15/21 19:55 07/15/21 21:06 07/15/21 21:08 Temperature 100.1 F H Temperature Source Temporal Pulse Rate 132 H 112 H Respiratory Rate 25 H 20 H Blood Pressure 130/85 H 114/72 Blood Pressure Mean 100 86 Pulse Ox 97 99 Oxygen Delivery Method Room Air Room Air Room Air 07/15/21 21:13 07/15/21 22:21 07/15/21 23:11 Temperature 98.4 F 97.8 F 98.1 F Temperature Source Oral Temporal Temporal Pulse Rate 104 H 100 Respiratory Rate 12 15 Blood Pressure 129/73 H 147/72 H Blood Pressure Mean 91 97 Pulse Ox 97 95 Oxygen Delivery Method Room Air Room Air Positive well nourished and well developed Constitutional Narrative: Tremulous in acute painful distress General Appearance ED: well developed HEENT Reports moist mucous membranes normocephalic and atraumatic Eyes PERRL and EOMs intact bilaterally Neck full ROM and supple Resp normal respiratory effort and clear to auscultation bilaterally Cardio regular rate, regular rhythm and no murmurs Rate: tachycardic GI non-distended GI Narrative: Tender throughout upper abdomen with voluntary guarding, no rebound tenderness. No pulsatile masses. Auscultation: hypoactive bowel sounds Palpation: soft Back/Spine no CVA tenderness General Back: other FROM Extremity normal to inspection and full ROM Extremity Narrative: All compartments soft and nondistended in her lower extremities, normal in appearance, and nontender on palpation. Strong posterior tibial 2+/4 pulses bilaterally and symmetric. General Extremety ED: Negative for edema, pulses abnormal or tenderness General Extremity: Negative for edema or pulses abnormal Neuro oriented x3, CN's II-XII intact bilaterally and no sensory deficits noted Sensorium / Orientation: awake and alert Motor Exam: strength 5/5 throughout Psych thought process normal and cooperative Mood & Affect: anxious Skin no rashes or lesions noted and no wounds MDM MDM MDM Narrative Medical decision making narrative: In triage patient is temporal temperature was 100.1, but soon thereafter when she got back to the ED nursing obtained an oral temperature that is 98.1. There is no obvious etiology for her constellation of symptoms, bilateral leg pain followed by headache, nausea vomiting, and abdominal pain. Therefore septic work-up was obtained in addition to CTs of her head and abdomen/pelvis and cardiac testing. Except for a nonspecifically elevated lactic acid, all of her testing is normal with the exception of an air-fluid level in her sphenoid sinus that MAY represent sphenoid sinusitis. Initially before work-up was obtained/finished, she was given IV fluids, Zofran, and morphine. She said she felt no better and actually felt somewhat worse. Nursing gave her another dose of morphine which did not help, then after reviewing some of her old records it looks like she had a migraine in March where she had similar complaints except she did not have the thigh pain bilaterally. She developed that today simultaneously bilaterally, and has no edema, palpable cords, or tenderness, so I do not think she has developed simultaneous bilateral DVTs since she just came off of her warfarin for the procedure she is talking about. I reassured her with regards to that. However subsequently we treated her with Toradol, Reglan, Benadryl. I think it is reasonable to treat her empirically for the possibility of sphenoidal sinusitis with Augmentin. Also given a prescription for Reglan to use as needed and advised to follow-up closely. Lab Data Attestation: I reviewed the patient's lab results. Labs: Laboratory Results - last 24 hr 07/15/21 07/15/21 07/15/21 20:50 20:50 20:50 WBC 8.2 RBC 4.90 Hgb 15.4 H Hct 44.7 MCV 91.2 MCH 31.4 MCHC 34.5 RDW Std Deviation 40.9 RDW Coeff of [place] 12.2 Plt Count 233 MPV 9.1 Immature Gran % (Auto) 0.400 Neut % (Auto) 91.2 H Lymph % (Auto) 6.2 L [place] % (Auto) 1.6 Eos % (Auto) 0.5 Baso % (Auto) 0.1 Absolute Neuts (auto) 7.5 Absolute Lymphs (auto) 0.51 L Nucleated RBC % 0 Differential Comment SCANNED PT 13.9 INR 1.1 APTT 22.3 L Sodium 138 Potassium 3.8 Chloride 99 Carbon Dioxide 31.0 Anion Gap 8 BUN 10 Creatinine 0.95 Estim Creat Clear Calc 44.83 Est GFR (MDRD) Af Amer 75 Est GFR (MDRD) Non-Af 62 BUN/Creatinine Ratio 10.5 Glucose 93 Lactic Acid Calcium 8.6 Total Bilirubin 1.00 AST 24 ALT 20 Alkaline Phosphatase 106 Total Creatine Kinase 58 Troponin I High Sens 5 Total Protein 7.3 Albumin 3.8 Globulin 3.5 Albumin/Globulin Ratio 1.1 Urine Color Urine Clarity Urine pH Ur Specific [place] Urine Protein Urine Glucose (UA) Urine Ketones Urine Occult Blood Urine Nitrite Urine Bilirubin Urine Urobilinogen Ur Leukocyte Esterase Urine RBC Urine WBC Ur Squamous Epith Cells Urine Bacteria Urine Mucus 07/15/21 07/15/21 20:50 22:11 WBC RBC Hgb Hct MCV MCH MCHC RDW Std Deviation RDW Coeff of [place] Plt Count MPV Immature Gran % (Auto) Neut % (Auto) Lymph % (Auto) [place] % (Auto) Eos % (Auto) Baso % (Auto) Absolute Neuts (auto) Absolute Lymphs (auto) Nucleated RBC % Differential Comment PT INR APTT Sodium Potassium Chloride Carbon Dioxide Anion Gap BUN Creatinine Estim Creat Clear Calc Est GFR (MDRD) Af Amer Est GFR (MDRD) Non-Af BUN/Creatinine Ratio Glucose Lactic Acid 2.3 H* Calcium Total Bilirubin AST ALT Alkaline Phosphatase Total Creatine Kinase Troponin I High Sens Total Protein Albumin Globulin Albumin/Globulin Ratio Urine Color Yellow Urine Clarity Clear Urine pH 8.0 Ur Specific [place] 1.010 Urine Protein Negative Urine Glucose (UA) Normal Urine Ketones Negative Urine Occult Blood Negative Urine Nitrite Negative Urine Bilirubin Negative Urine Urobilinogen Normal Ur Leukocyte Esterase Negative Urine RBC 0 SEEN Urine WBC 0 SEEN Ur Squamous Epith Cells 0-5 SEEN Urine Bacteria 0 SEEN Urine Mucus 0 SEEN Radiography Chest X-Ray - ED: 1 View, Read by ED Physician, Normal and No Acute Disease Diagnostic Testing: Clinical Impression(s) from Imaging Studies Abdomen/Pelvis CT 07/15/21 21:25 IMPRESSION: No acute findings in the abdomen or pelvis. Electronically Signed: Giovany Mckeon MD at 23:04 EDT , Brain CT 07/15/21 21:25 IMPRESSION: Small amount of fluid in the sphenoid sinus which is nonspecific and could be due to acute sinusitis. Electronically Signed: Giovany Mckeon MD at 23:00 EDT , Chest X-Ray 07/15/21 21:30 IMPRESSION: No acute findings. Electronically Signed: Diane Espinal MD at 21:51 EDT , EKG Initial EKG: Attestation: I personally reviewed and interpreted this EKG as follows: Interpretation: No Acute Injury Pattern and Sinus Tachycardia Prior EKG tracings: available for review Prior: Unchanged Discharge Plan Triage Chief Complaint: Abd Pain ED Provider: Sergei Vargas Dx/Rx/DC Orders Clinical Impression: Migraine headache, Fibromyalgia, Acute upper abdominal pain, Bilateral thigh pain, Sphenoid sinusitis Instructions: Understanding Your Sinuses, ED, Migraine (Classical) Prescriptions: New metoclopramide HCl [metoclopramide HCl] 10 MG tablet 10 mg PO Q6H PRN (Reason: nausea and vomiting) Qty: 20 RF: 0 amoxicillin-pot clavulanate [amoxicillin-pot clavulanate] 875 MG tablet 875 mg PO Q12H Qty: 20 RF: 0 No Action estradiol 1 mg tablet 1 mg PO DAILY RF: 0 warfarin 2 mg tablet 2 mg PO DAILY RF: 0 pregabalin [Lyrica] 100 MG capsule 75 mg PO TID RF: 0 levothyroxine 88 MCG tablet 75 mcg PO DAILY RF: 0 hydroxychloroquine 200 MG tablet 200 mg PO DAILYCM RF: 0 Xtampza ER 13.5 mg cap,sprinkl,ER12hr(DONT CRUSH) 13.5 mg PO BID RF: 0 Primary Care Provider: Wilton Navas Chi Referrals: Wilton Navas Chi, MD [Primary Care Provider] - 3-5 Days Disposition Disposition: Home, Self Care
[2021-07-15] MEDS: Morphine 4 MG/ML Syringe IV ×2 (21:04→22:19)
[2021-07-15] MEDS: 0.9% Normal Saline 1,000 ML 999 ML IV (21:04)
[2021-07-15] MEDS: Acetaminophen 500 MG Tablet 1000 MG PO (21:05)
[2021-07-15] MEDS: Ondansetron 4 MG/2 ML Vial IV (21:05)
[2021-07-15 21:06] VITALS: BP 114/72; PULSE 112; RESP 20; O2SAT 99
[2021-07-15 21:07] LABS: Differential Indicated SCAN CRITERIA MET
[2021-07-15 21:13] VITALS: TEMP 36.9
[2021-07-15 21:16] LABS: International Normalized Ratio 1.1; Partial Thromboplast Time 22.3 Seconds (24.1-36.2); Prothrombin Time (Protime)PT. 13.9 SECONDS (11.7-14.9)
[2021-07-15 21:22] LABS: ALB/GLOB Ratio 1.1 RATIO (0.9-2.4); AST(SGOT) 24 U/L (15-37); Alanine Aminotransfer ALT/SGPT 20 U/L (13-56); Albumin, Serum 3.8 g/dL (3.2-5.0); Alkaline Phosphatase 106 U/L (45-117); Anion Gap 8 (5-15); BUN 10 mg/dL (7-18); BUN/Creat Ratio 10.5 RATIO (10-20); CPK Total, Creatine Kinase 58 U/L (26-192); Calcium,Total 8.6 mg/dL (8.5-10.1); Chloride 99 mmol/L (98-107); Creatinine, Serum 0.95 mg/dL (0.55-1.02); EST Glomerular Filtration Rate 62 mL/min (>60); Est Glom Filt Rate - Afr Amer 75 mL/min (>60); Estimated Creatinine Clearance 44.83 ml/min; Globulin 3.5 g/dL (2.2-4.2); Glucose 93 mg/dL (74-106); Potassium 3.8 mmol/L (3.5-5.1); Protein, Total 7.3 g/dL (6.4-8.2); Sodium Level 138 mmol/L (136-145); Troponin-I HS 5 pg/mL (3.0-54.0)
[2021-07-15 21:25] LABS: Differential Comment SCANNED
--- NOTE | 2021-07-15 21:25 | CT_ITS ---
EXAM: CT Abdomen and Pelvis With Intravenous Contrast CLINICAL INDICATION: 66 years old, Female; upper abd pain, n/v TECHNIQUE: Helically acquired images were obtained of the abdomen and pelvis with intravenous contrast. This CT exam was performed using one or more of the following dose reduction techniques: automated exposure control, adjustment of the mA and/or kV according to patient size, and/or use of iterative reconstruction technique. This report was created using Signature report generation technology. CONTRAST: IV 100mL Isovue-300 RADIATION DOSE: CTDIvol = 12.78 mGy, DLP = 602.87 mGy-cm COMPARISON: None. FINDINGS: Lower thorax: Calcified granulomata in the right lung base. Small hiatal hernia. No cardiomegaly. No significant pericardial effusion. ABDOMEN: Liver: Low attenuation foci in the liver which may be due to cysts but are too small to characterize. Gallbladder and bile ducts: Unremarkable. No calcified gallstones. No gallbladder distention or wall edema. No intra- or extrahepatic biliary ductal dilation. Pancreas: Unremarkable. No focal cystic or solid mass. Spleen: Unremarkable. Normal size without focal cystic or solid mass. Adrenals: Unremarkable. No nodules. Kidneys and ureters: Unremarkable. Normal renal size and position. No hydronephrosis. Stomach and bowel: Unremarkable. No stomach or bowel distention. No focal inflammatory change. PELVIS: Appendix: No evidence of acute appendicitis. Bladder: Unremarkable. Reproductive: Hysterectomy. ABDOMEN and PELVIS: Intraperitoneal space: Unremarkable. No ascites or other fluid collection. No free air. Bones/joints: Unremarkable. No suspicious lytic or blastic abnormality. Soft tissues: Injection granulomata buttocks. No discrete abdominal or pelvic wall hernia. Vasculature: Atherosclerotic disease. Abdominal aorta is non-dilated. Lymph nodes: Unremarkable. No enlarged lymph nodes. CT/Abdomen/Pelvis W IV Cont ONLY IMPRESSION: No acute findings in the abdomen or pelvis. Electronically Signed: Giovany Mckeon MD at 23:04 EDT ,
--- NOTE | 2021-07-15 21:25 | CT_ITS ---
EXAM: CT Head Without Intravenous Contrast CLINICAL INDICATION: 66 years old, Female; headache TECHNIQUE: Multiple axial images were obtained of the head without intravenous contrast. This CT exam was performed using one or more of the following dose reduction techniques: automated exposure control, adjustment of the mA and/or kV according to patient size, and/or use of iterative reconstruction technique. This report was created using [employer] report generation technology. RADIATION DOSE: CTDIvol = 44.99 mGy, DLP = 762.36 mGy-cm COMPARISON: None. FINDINGS: Brain and extra-axial spaces: Unremarkable. No intra- or extra-axial hemorrhage. No evidence of acute infarct. No intracranial mass or mass effect. There is preservation of the vásquez/white matter interface. Posterior fossa structures are unremarkable. Ventricles are appropriate for age. No hydrocephalus. Basal cisterns are patent. Bones/joints: Unremarkable. No discrete lytic or blastic abnormalities. Sinuses: Small amount of fluid in the sphenoid sinus which is nonspecific and could be due to acute sinusitis. Mastoid air cells: Unremarkable. Clear. Orbits: Visualized globes, extraocular muscles, optic nerves and retrobulbar fat appear unremarkable. CT/Brain/Head without Contrast IMPRESSION: Small amount of fluid in the sphenoid sinus which is nonspecific and could be due to acute sinusitis. Electronically Signed: Giovany Mckeon MD at 23:00 EDT ,
--- NOTE | 2021-07-15 21:30 | RAD_ITS ---
STUDY: X-RAY CHEST REASON FOR EXAM: Female, 66 years old. fever, nausea TECHNIQUE: AP portable. 9:24 PM. COMPARISON: 09/12/2020. FINDINGS: LUNGS: No consolidation. Minimal reticular opacity in the left lung base likely scarring. No pneumothorax. MEDIASTINUM: Unremarkable. CARDIAC SILHOUETTE: Not enlarged. BONES AND SOFT TISSUES: No acute abnormalities. Degenerative changes in the dorsal spine. RAD/Chest 1 View (Portable) IMPRESSION: No acute findings. Electronically Signed: Diane Espinal MD at 21:51 EDT ,
[2021-07-15 21:45] LABS: Lactic Acid 2.3 mmol/L (0.4-1.9)
[2021-07-15 22:18] LABS: Bacteria 0 SEEN /hpf (None Seen); Mucous, Urine 0 SEEN /hpf (<or=2+); Red Blood Cells-Urine 0 SEEN /hpf (0-5); White Blood Cells 0 SEEN /hpf (0-5)
[2021-07-15 22:21] VITALS: BP 129/73; PULSE 104; RESP 12; TEMP 36.6; O2SAT 97
[2021-07-15 22:24] LABS: Color, Urine Yellow (Yellow); Glucose, Dipstick Normal (Normal); Ketone-Dipstick Negative (Negative); Leukocyte Esterase-Dipstick Negative /ul (Negative); Nitrite-Dipstick Negative (Negative); Occult Blood-Urine Negative /ul (Negative); Protein-Dipstick Negative (Negative); Urine Bilirubin Dipstick Negative (Negative); Urine Clarity Clear (Clear); Urine Urobilinogen Normal (Normal)
[2021-07-15 22:39] LABS: Squamous Epithelial Cells - UA 0-5 SEEN /hpf (5-10)
[2021-07-15 23:11] VITALS: BP 147/72; PULSE 100; RESP 15; TEMP 36.7; O2SAT 95
[2021-07-15] MEDS: Ketorolac 15 MG/ML Vial IV (23:17)
[2021-07-16] MEDS: Metoclopramide 10 MG/2 ML Vial 5 MG IV (00:37)
[2021-07-16] MEDS: DiphenhydrAMINE 50 MG/ML Syringe 25 MG IV (00:37)
[2021-07-16 00:38] VITALS: BP 147/72; PULSE 109; RESP 16; O2SAT 100
[2021-07-16 01:00] LABS: Reflex Lactate? Y
== END 2021-07-16 00:49 | disposition home or self-care (01) ==
PROVIDERS: Emergency Provider Emergency Medicine; PCP Family Medicine Geriatric Medicine; Visit Provider Emergency Medicine
DX: G43.909 Migraine, unspecified, not intractable, without status migrainosus (principal); M79.7 Fibromyalgia; R10.10 Upper abdominal pain, unspecified; M79.652 Pain in left thigh; M79.651 Pain in right thigh; J01.30 Acute sphenoidal sinusitis, unspecified; Z86.718 Personal history of other venous thrombosis and embolism; E78.00 Pure hypercholesterolemia, unspecified; E03.9 Hypothyroidism, unspecified; Z85.820 Personal history of malignant melanoma of skin; K21.9 Gastro-esophageal reflux disease without esophagitis; Z79.01 Long term (current) use of anticoagulants; Z79.899 Other long term (current) drug therapy
CPT/HCPCS: 70450; 71045; 74177; 80053; 81001; 82550; 83605; 84484; 85025; 85610; 85730; 87040; 87086; 87088; 93005; 96361; 96374; 96375; 96376; 99284; J7030; Q9967; A4216; J2405

== ENCOUNTER → 2021-07-15 | Outpatient (CLI) | payer MEDICARE, OTHER, SELFPAY ==
[2021-07-15 10:47] LABS: Absolute Lymphocyte Count 1.89 X10^3/uL (0.83-4.51); Absolute Neutrophil Count 1.8 X10^3/uL (2.0-7.7); Basophil# 0.03 X10^3/uL; Basophil% 0.7 % (0-1); Eosinophil# 0.31 X10^3/uL; Eosinophils% 6.8 % (0-5); Hematocrit 40.3 % (37-47); Hemoglobin 13.5 g/dL (12.0-15.0); Lymphocyte # 1.89 X10^3/ul (0.83-4.51); Lymphocyte % 41.4 % (19-41); Mean Corp Hgb Conc 33.5 g/dL (32-36); Mean Corpuscular Hgb 31.2 pg (27.0-32.0); Mean Corpuscular Volume 93.1 fL (81-99); Mean Platelet Vol. 9.7 fl (6.2-12.0); Monocyte# 0.49 X10^3/uL; Monocyte% 10.7 % (0-10); NRBC Flagged by Analyzer 0 % (0-5); Neutrophil # 1.83 X10^3/uL (2.7-7.7); Neutrophil % 40.2 % (47-70); Platelet Count 302 K/mm3 (150-450); RBC Distribution Width CV 12.2 % (11.6-14.6); RBC Distribution Width SD 42.2 fl (35.1-43.9); Red Blood Count 4.33 M/mm3 (4.2-5.4); White Blood Count 4.6 K/mm3 (4.4-11.0)
[2021-07-15 11:13] LABS: Vitamin D,25 Hydroxy 22.6 ng/mL
[2021-07-15 11:18] LABS: AST(SGOT) 20 U/L (15-37); Alanine Aminotransfer ALT/SGPT 19 U/L (13-56); Albumin, Serum 3.3 g/dL (3.2-5.0); Alkaline Phosphatase 92 U/L (45-117); Anion Gap 4 (5-15); BUN 11 mg/dL (7-18); BUN/Creat Ratio 12.5 RATIO (10-20); Calcium,Total 8.1 mg/dL (8.5-10.1); Chloride 104 mmol/L (98-107); Creatinine, Serum 0.88 mg/dL (0.55-1.02); EST Glomerular Filtration Rate 68 mL/min (>60); Est Glom Filt Rate - Afr Amer 82 mL/min (>60); Globulin 3.2 g/dL (2.2-4.2); Glucose 70 mg/dL (74-106); Potassium 3.4 mmol/L (3.5-5.1); Protein, Total 6.5 g/dL (6.4-8.2); Sodium Level 140 mmol/L (136-145); Thyroid Stim Hormone (TSH) 7.73 uIU/mL (0.358-3.74)
== END | disposition home or self-care (01) ==
LOC: POLAB3 09:38
PROVIDERS: PCP Family Medicine Geriatric Medicine; Visit Provider Family Medicine Geriatric Medicine
DX: E55.9 Vitamin D deficiency, unspecified (principal); R53.83 Other fatigue
CPT/HCPCS: 36415; 80053; 82306; 84443; 85025

== ENCOUNTER 2021-07-16 12:35 | Outpatient (CLI) | payer MEDICARE, OTHER, SELFPAY ==
--- NOTE | 2021-07-16 12:40 | VDLE_ITS ---
Reason For Study: Micha RIGHT LEFT GSV is normal. GSV is normal. CFV is compressible, spontaneous, phasic, CFV is compressible, spontaneous, phasic, competent and demonstrates normal competent, and demonstrates normal augmentation. augmentation. FV is compressible, spontaneous, phasic, FV is compressible, spontaneous, phasic, competent and demonstrates normal competent and demonstrates normal augmentation. augmentation. POP V is compressible, spontaneous, phasic, POP V is compressible, spontaneous, phasic, competent and demonstrates normal competent and demonstrates normal augmentation. augmentation. T/P Trunk is compressible. T/P Trunk is compressible. PTV is compressible. PTV is compressible. RT PerV is compressible. LT PerV is compressible. Procedure This is a venous duplex using B-mode, color flow and spectral Doppler. Exam performed in department. A preliminary report was called and/or faxed to [facility]. VL/Venous Duplex US - Boubacar Extrem Interpretation Summary Deep veins of the lower extremities are bilaterally patent and compressible seg mentally. There is no evidence of deep vein thrombosis on either side. Valvular competence appears in tact within the proximal deep venous systems bilaterally. The great saphenous veins appear bila terally patent and compressible segmentally. Ordering Physician: Wilton Navas Referring Physician: Wilton Navas Chi Performed By: Merline Parra RVAndres
== END 2021-07-16 23:59 | disposition home or self-care (01) ==
LOC: CVS 12:37
PROVIDERS: PCP Family Medicine Geriatric Medicine; Visit Provider Family Medicine Geriatric Medicine
DX: R60.0 Localized edema (principal)
CPT/HCPCS: 93970

== ENCOUNTER → 2021-07-17 | Outpatient (CLI) | payer MEDICARE, OTHER, SELFPAY ==
[2021-07-17 12:28] VITALS: BP 112/59; PULSE 76; RESP 16; TEMP 35.8; O2SAT 98; BMI 23.9
[2021-07-17] MEDS: 0.9% NaCl Peripheral Flush Adult/Peds IV (12:45)
[2021-07-17] MEDS: 0.9% Normal Saline 1,000 ML 999 ML IV ×2 (12:45→13:49)
[2021-07-17 15:01] VITALS: BP 131/69; PULSE 79; RESP 12; TEMP 35.8
== END | disposition home or self-care (01) ==
PROVIDERS: PCP Family Medicine Geriatric Medicine; Referring Provider Family Medicine Geriatric Medicine; Visit Provider Family Medicine Geriatric Medicine
DX: E86.0 Dehydration (principal)
CPT/HCPCS: 96360; 96361; J7030; A4216

== ENCOUNTER → 2021-07-22 | Outpatient (CLI) | payer MEDICARE, OTHER, SELFPAY ==
--- NOTE | 2021-07-22 09:05 | BD_ITS ---
STUDY: DUAL ENERGY X-RAY ABSORPTIOMETRY / DXA REASON FOR EXAM: Female, 66 years old. [id number]. The patient is postmenopausal. TECHNIQUE: Bone Mineral Density (BMD) measurements of lumbar spine and bilateral hips were obtained. COMPARISON: Comparison is made with prior study dated 09/20/2018. FINDINGS: Lumbar Spine (L1-L4): g/cm2 (1.228) / T-score (1.6) / Z-score (3.7) Findings are suggestive of normal bone density with a low fracture risk. Left Femur Total: g/cm2 (0.957) / T-score (0.1) / Z-score (1.5) Left Femoral Neck: g/cm2 (0.705) / T-score (-1.3) / Z-score (0.4) Right Femur Total: g/cm2 (0.902) / T-score (-0.3) / Z-score (1.1) Right Femoral Neck: g/cm2 (0.697) / T-score (-1.4) / Z-score (0.3) The T-Scores on the most recent prior examination were: Lumbar Spine (L1-L4): There has been worsening of bone density since the previous examination. Left Femur Total: which represents a worsening of 11%. Right Femur Total: which represents a worsening of 9.7%. BD/Dexa Bone Density Study IMPRESSION: The patient is considered osteopenic as outlined below according to World Alvaro Organization (WHO) criteria with a low fracture risk. There has been worsening of bone density since the previous examination. Reference Information: The T-score is the number of standard deviations above or below the standard which is normal for young adults at their peak bone mineral density. The World Health Organization (WHO) interprets the T-scores as follows: Above -1 Normal bone density Between -1 and -2.5 Osteopenia Equal to / or below -2.5 Osteoporosis As a practical clinical guideline, osteopenia may be graded as follows: Mild -1 through -1.5 Moderate -1.6 through -2.0 Severe -2.1 through -2.4 The Z-score is the number of standard deviations above or below age-matched controls. A Z-score of less than -1.5 would be considered abnormal. References: 1. NIH Osteoporosis and Related Bone Diseases www osteo.org 2. International Society for Clinical Densitometry www iscd.org 3. National Osteoporosis Foundation www nof.org Electronically Signed: Chicho Hercules MD at 11:11 EDT ,
== END | disposition home or self-care (01) ==
LOC: OPBD 09:01
PROVIDERS: PCP Family Medicine Geriatric Medicine; Visit Provider Family Medicine Geriatric Medicine
DX: Z13.820 Encounter for screening for osteoporosis (principal); Z78.0 Asymptomatic menopausal state
CPT/HCPCS: 77080

== ENCOUNTER → 2021-09-09 | Outpatient (CLI) | payer MEDICARE, OTHER, SELFPAY ==
--- NOTE | 2021-09-09 12:49 | VDLE_ITS ---
Reason For Study: Edema RIGHT LEFT GSV is normal. GSV is normal. CFV is compressible, spontaneous, phasic, CFV is compressible, spontaneous, phasic, competent and demonstrates normal competent, and demonstrates normal augmentation. augmentation. FV is compressible, spontaneous, phasic, FV is compressible, spontaneous, phasic, competent and demonstrates normal competent and demonstrates normal augmentation. augmentation. POP V is compressible, spontaneous, phasic, POP V is compressible, spontaneous, phasic, competent and demonstrates normal competent and demonstrates normal augmentation. augmentation. T/P Trunk is compressible. T/P Trunk is compressible. PTV is compressible. PTV is compressible. RT PerV is compressible. LT PerV is compressible. Procedure This is a venous duplex using B-mode, color flow and spectral Doppler. Exam performed in department. A preliminary report was called and/or faxed to [facility]. VL/Venous Duplex US - Boubacar Extrem Interpretation Summary Deep veins of the lower extremities are bilaterally patent and compressible seg mentally. There is no evidence of deep vein thrombosis on either side. Valvular competence appears in tact within the proximal deep venous systems bilaterally. The great saphenous veins appear bila terally patent and compressible segmentally. Ordering Physician: Wilton Navas Referring Physician: Wilton Navas Chi Performed By: Merline Parra RVT
== END | disposition home or self-care (01) ==
LOC: CVS 12:48
PROVIDERS: PCP Family Medicine Geriatric Medicine; Referring Provider Family Medicine Geriatric Medicine; Visit Provider Family Medicine Geriatric Medicine
DX: R60.0 Localized edema (principal)
CPT/HCPCS: 93970

== ENCOUNTER 2021-09-15 11:00 | Outpatient (RCR) | payer MEDICARE, OTHER, SELFPAY ==
--- NOTE | 2021-08-20 14:15 | HP.PTEVAL_ITS ---
Patient's Visit Information JOSÉ ZALDIVAR is a 66 year old F referred to Physical Therapy by Dr. Mark Olivas MD with a diagnosis of LEG PAIN. Date of Evaluation: 08/20/21 Physical Therapist: Noemy Robertson PT, Cert MDT - Visit Plan Frequency: 2-3x /Week Duration: 4-6 Weeks Plan: POSTURE CORRECTION/STRENGTHENING, INSTRUCTION IN APPROPRIATE BODY MECHANICS AND ACTIVITY MODIFICATIONS. DLS STARTING WITH A NEUTRAL SPINE PROGRESSING ROM TOLERATED. ROBER LE ROM, STRETCHING AND STRENGTHENING. HEP INSTRUCTION. - Subjective Work/Leisure: RETIRED. Present symptoms: RESTLESS LEG SYMPTOMS ANYTIME. LEGS ACHE. IT COMES AND GOES BUT BECOMING MORE FREQUENT. INTERMITTENT LOW BACK PAIN BUT BETTER SINCE ALEXANDER ABOUT A MONTH AGO. Present since: A COUPLE YEARS. Pain Scale: WORST 9/10, LEAST 0/10. Currently: 04/07. Commenced as a result of: NO APPARENT REASON. Symptoms at onset: ROBER LE PAIN. Worse: NO APPARENT REASON. RANDOM, MOSTLY OCCURS AT NIGHT BUT ALSO DURING THE DAY. Better: NOTHING. Disturbed sleep: YES. Previous history/Previous treatment: 1 OR 2 ALEXANDER'S IN LUMBAR SPINE. ONLY ONE RECENTLY. Coughing/sneezing/straining: NEGATIVE. Gait: NORMAL. Difficulty initiating urination: NO. Bowel or Bladder Dysfunction: NO. Accidents: NO. Unexplained weight loss: NO. Imaging: NONE RECENT. PMH/Recent major surgery: RA REALLY BAD. SCLERADERMA. DX'D WITH RA ABOUT 2 YEARS AGO. POSITIVE COVID TEST OVER A YEAR AGO - ASSYMTOMATIC. - Objective Sitting/Standing Posture: FAIR. MILD FH. RSH'S. Lordosis: NORMAL. Active Correction of posture: NE. Other Observations: INDEP GAIT AND TRANSFERS WITHOUT AD. Sensory deficit: ROBER LE SENSATIVITY WITH LIGHT TOUCH TESTING AND SKIN IS SHINY AND VERY THIN. ROM deficit: ROBER LE HS AND GASTROC SOLEUS TIGHTNESS. Motor deficit: ROBER LE'S GROSSLY 5/5 EXCEPT HIPS 4/5. Dural Signs: NEGATIVE ROBER LE'S. Lumbar mvmt loss: flex - MIN. ext - MOD. R SG - MOD. L SG - MOD. Core strength: FAIR. Palpation: VERY THIN SKIN AND ROBER LE TENDERN ESS - Balance/Special Test Scores Oswestry Low Back Score: 6 - Goals Goal 1:: DECREASE C/O ROBER LE PAIN Goal Time Frame: 4-6 Weeks Goal 2:: IMPROVE STANDING AND WALKING FUNCTION Goal Time Frame: 4-6 Weeks Goal 3:: PATIENT WILL BE INDEP WITH HOME/GYM EX PROGRAMS FOR CONTINUED IMPROVEMENT ONCE FORMAL PHYSICAL THERPAY CONCLUDES. Goal Time Frame: 4-6 Weeks - Anticipated Interventions Patient/Client Instruction: Educate patient on: Condition, Plan of Care, Risk Factors For the Purpose of:: To improve self management Therapeutic Exercise to Include: Strength training, Body mechanics, Postural training, Flexibilty training, Neuromotor development, Dynamic Lumbar Stabilization For the Purpose of:: To decrease pain, To improve muscle performance and motor function, To increase tolerance to activity/condition/position, To improve ability of physical actions for home/community/work/leisure Thank you for the opportunity to evaluate your patient. For Medicare and Medicare HMO plans, please review the plan of care and approve it. It will need to be FAXED BACK to us at [phone] for Medicare purposes. For Medicare only, by signing this I certify the plan of care. Please let me know if there are questions or concerns regarding this plan of care. Physician Signature: Date:
--- NOTE | 2021-09-15 11:17 | HP.PTDCSUM ---
It has been my pleasure to treat JOSÉ ZALDIVAR referred by Dr. Mark Olivas MD, with the diagnosis of LEG PAIN for a total of 9 visit(s). Discharge Date: Please see the following information for a summary of their discharge status. Subjective: PATIENT REPORTS SHE IS DOING REALLY GOOD AND FEELS READY TO STOP PT. % Improvement: 95 Objective/Function: PATIENT WAS SEEN TODAY FOR RE-ASSESSMENT OF PROGRESS TOWARD THE SET PT GOALS AND THE NEED FOR FURTHER PHYSICAL THERAPY VS READINESS FOR DISCHARGE. UPON EXAM TODAY ALL PT GOALS HAVE BEEN MET. INSTRUCTED IN AND ISSUED GTB TODAY FOR STANDING MR'S, LAE'S AND ROBER MULTIFIDUS PUSH OUTS. Goal 1:: DECREASE C/O ROBER LE PAIN Goal Progress: Goal Met Goal 2:: IMPROVE STANDING AND WALKING FUNCTION Goal Progress: Goal Met Goal 3:: PATIENT WILL BE INDEP WITH HOME/GYM EX PROGRAMS FOR CONTINUED IMPROVEMENT ONCE FORMAL PHYSICAL THERPAY CONCLUDES. Goal Progress: Goal Met Plan: D/C TO INDEP EX. PATIENT AGREEABLE. If there are questions or concerns regarding this patient's physical therapy, please feel free to call me at [phone]. Thank you for the referral of this patient. Sincerely, Noemy Robertson, PT, Cert MDT Balance/Gait/Functional tests - Balance/Special Test Scores Oswestry Low Back Score: 0
== END 2021-09-15 11:27 | disposition home or self-care (01) ==
LOC: PT 11:00
PROVIDERS: PCP Family Medicine Geriatric Medicine; Referring Provider Anesthesiology Pain Medicine; Visit Provider Anesthesiology Pain Medicine
DX: M79.606 Pain in leg, unspecified (principal)
CPT/HCPCS: 97110; 97162; 97164; 97530

== ENCOUNTER → 2021-10-13 | Outpatient (CLI) | payer MEDICARE, OTHER, SELFPAY ==
[2021-10-13 12:43] LABS: Absolute Lymphocyte Count 1.75 X10^3/uL (0.83-4.51); Absolute Neutrophil Count 1.3 X10^3/uL (2.0-7.7); Basophil# 0.02 X10^3/uL; Basophil% 0.5 % (0-1); Eosinophil# 0.18 X10^3/uL; Eosinophils% 4.8 % (0-5); Hematocrit 40.4 % (37-47); Hemoglobin 13.3 g/dL (12.0-15.0); Lymphocyte # 1.75 X10^3/ul (0.83-4.51); Mean Corp Hgb Conc 32.9 g/dL (32-36); Mean Corpuscular Hgb 31.5 pg (27.0-32.0); Mean Corpuscular Volume 95.7 fL (81-99); Mean Platelet Vol. 9.7 fl (6.2-12.0); Monocyte# 0.43 X10^3/uL; Monocyte% 11.6 % (0-10); NRBC Flagged by Analyzer 0 % (0-5); Neutrophil # 1.33 X10^3/uL (2.7-7.7); Neutrophil % 35.8 % (47-70); Platelet Count 286 K/mm3 (150-450); RBC Distribution Width CV 12.9 % (11.6-14.6); RBC Distribution Width SD 45.1 fl (35.1-43.9); Red Blood Count 4.22 M/mm3 (4.2-5.4); White Blood Count 3.7 K/mm3 (4.4-11.0)
[2021-10-13 12:54] LABS: Vitamin D,25 Hydroxy 27.8 ng/mL
[2021-10-13 13:13] LABS: ALB/GLOB Ratio 1.1 RATIO (0.9-2.4); AST(SGOT) 26 U/L (15-37); Alanine Aminotransfer ALT/SGPT 25 U/L (13-56); Albumin, Serum 3.3 g/dL (3.2-5.0); Alkaline Phosphatase 67 U/L (45-117); Anion Gap 6 (5-15); BUN 15 mg/dL (7-18); BUN/Creat Ratio 17.1 RATIO (10-20); Calcium,Total 8.3 mg/dL (8.5-10.1); Chloride 104 mmol/L (98-107); Creatinine, Serum 0.88 mg/dL (0.55-1.02); EST Glomerular Filtration Rate 68 mL/min (>60); Est Glom Filt Rate - Afr Amer 82 mL/min (>60); Globulin 3.1 g/dL (2.2-4.2); Glucose 65 mg/dL (74-106); Potassium 3.7 mmol/L (3.5-5.1); Protein, Total 6.4 g/dL (6.4-8.2); Sodium Level 140 mmol/L (136-145); Thyroid Stim Hormone (TSH) 2.58 uIU/mL (0.358-3.74)
== END | disposition home or self-care (01) ==
LOC: POLAB3 09:02
PROVIDERS: PCP Family Medicine Geriatric Medicine; Visit Provider Family Medicine Geriatric Medicine
DX: E55.9 Vitamin D deficiency, unspecified (principal); R53.83 Other fatigue
CPT/HCPCS: 36415; 80053; 82306; 84443; 85025

== ENCOUNTER → 2021-12-04 | Outpatient (CLI) | payer MEDICARE, OTHER, SELFPAY ==
[2021-12-04 10:37] LABS: Amphetamine Urine VISTA NEGATIVE (<1000 ng/mL); Barbiturate Urine VISTA NEGATIVE (< 200 ng/mL); Benzodiazepine Urine VISTA NEGATIVE (< 200 ng/mL); Cocaine Urine VISTA NEGATIVE (< 300 ng/mL); Ecstacy Urine VISTA NEGATIVE (< 500 ng/mL); Methadone Urine VISTA NEGATIVE (< 300 ng/mL); PCP Urine VISTA NEGATIVE (< 25 ng/mL); THC Urine VISTA NEGATIVE (< 50 ng/mL); Vista UDS pH Range 6
== END | disposition home or self-care (01) ==
LOC: LAB 09:48
PROVIDERS: PCP Family Medicine Geriatric Medicine; Referring Provider Anesthesiology Pain Medicine; Visit Provider Anesthesiology Pain Medicine
DX: F11.20 Opioid dependence, uncomplicated (principal)
CPT/HCPCS: 80307

== ENCOUNTER → 2022-01-13 | Outpatient (CLI) | payer MEDICARE, OTHER, SELFPAY ==
[2022-01-13 13:12] LABS: Absolute Lymphocyte Count 1.99 X10^3/uL (0.83-4.51); Absolute Neutrophil Count 1.2 X10^3/uL (2.0-7.7); Basophil# 0.03 X10^3/uL; Basophil% 0.8 % (0-1); Eosinophil# 0.21 X10^3/uL; Eosinophils% 5.4 % (0-5); Hematocrit 38.9 % (37-47); Hemoglobin 12.7 g/dL (12.0-15.0); Lymphocyte # 1.99 X10^3/ul (0.83-4.51); Lymphocyte % 50.9 % (19-41); Mean Corp Hgb Conc 32.6 g/dL (32-36); Mean Corpuscular Hgb 30.8 pg (27.0-32.0); Mean Corpuscular Volume 94.4 fL (81-99); Mean Platelet Vol. 10.7 fl (6.2-12.0); Monocyte# 0.52 X10^3/uL; Monocyte% 13.3 % (0-10); NRBC Flagged by Analyzer 0 % (0-5); Neutrophil # 1.15 X10^3/uL (2.7-7.7); Neutrophil % 29.3 % (47-70); Platelet Count 250 K/mm3 (150-450); RBC Distribution Width CV 12.9 % (11.6-14.6); RBC Distribution Width SD 44.8 fl (35.1-43.9); Red Blood Count 4.12 M/mm3 (4.2-5.4); White Blood Count 3.9 K/mm3 (4.4-11.0)
[2022-01-13 13:29] LABS: Vitamin D,25 Hydroxy 27.6 ng/mL
[2022-01-13 13:37] LABS: ALB/GLOB Ratio 1.1 RATIO (0.9-2.4); AST(SGOT) 36 U/L (15-37); Alanine Aminotransfer ALT/SGPT 31 U/L (13-56); Albumin, Serum 3.1 g/dL (3.2-5.0); Alkaline Phosphatase 74 U/L (45-117); Anion Gap 5 (5-15); BUN 17 mg/dL (7-18); BUN/Creat Ratio 15.9 RATIO (10-20); Calcium,Total 8.3 mg/dL (8.5-10.1); Chloride 107 mmol/L (98-107); Creatinine, Serum 1.07 mg/dL (0.55-1.02); EST Glomerular Filtration Rate 54 mL/min (>60); Est Glom Filt Rate - Afr Amer 65 mL/min (>60); Globulin 2.9 g/dL (2.2-4.2); Glucose 111 mg/dL (74-106); Potassium 3.8 mmol/L (3.5-5.1); Sodium Level 139 mmol/L (136-145); Thyroid Stim Hormone (TSH) 7.03 uIU/mL (0.358-3.74)
== END | disposition home or self-care (01) ==
LOC: POLAB3 09:38
PROVIDERS: PCP Family Medicine Geriatric Medicine; Visit Provider Family Medicine Geriatric Medicine
DX: E55.9 Vitamin D deficiency, unspecified (principal); R53.83 Other fatigue
CPT/HCPCS: 36415; 80053; 82306; 84443; 85025

== ENCOUNTER → 2022-01-19 | Outpatient (CLI) | payer MEDICARE, OTHER, SELFPAY ==
--- NOTE | 2022-01-19 16:07 | VDUE_ITS ---
Reason For Study: Edema Left Proximal Left jugular vein is spontaneous, widely patent, phasic, with no intraluminal echogenicity noted. Left subclavian vein is spontaneous, widely patent, phasic, with no intraluminal echogenicity noted. Left Arm Left axillary vein is spontaneous, patent, phasic, competent, compressible and demonstrates augmentation. Left brachial vein is compressible. Left cephalic vein is compressible. Left basilic vein is compressible. Left Lower Arm Left radial vein is compressible. Left ulnar vein is compressible. Patient Safety Preliminary report sent to [facility]. VL/Venous Duplex US, Unilateral Interpretation Summary Deep veins of the left upper extremity are patent and compressible segmentally. There is no evidence of deep vein thrombosis. The superficial veins of the left upper extremity, the basilic and cephalic veins, are patent and compressible. There is no evidence of left upper extremit y superficial thrombophlebitis involving the veins imaged. Ordering Physician: Wilton Navas Chi Referring Physician: Wilton Navas Chi Performed By: Merline Parra RVT ???
== END | disposition home or self-care (01) ==
PROVIDERS: PCP Family Medicine Geriatric Medicine; Referring Provider Family Medicine Geriatric Medicine; Visit Provider Family Medicine Geriatric Medicine
DX: R60.0 Localized edema (principal)
CPT/HCPCS: 93971

== ENCOUNTER 2022-04-08 16:46 | Emergency (ER) | payer OTHER, MEDICARE, SELFPAY ==
[2022-04-08 16:48] VITALS: BP 165/73; PULSE 66; RESP 18; TEMP 35.9; O2SAT 97; BMI 26.5
--- NOTE | 2022-04-08 17:17 | EX.ED.UPPERE ---
HPI History of Present Illness Chief Complaint: Laceration Narrative Narrative: 67-year-old female past medical history of scleroderma, fibromyalgia, on Coumadin because of blood clots. 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 She scraped her right arm against another plastic bin. She states she has onion skin and sustained a skin tear to her right upper extremity/forearm. Her arm was bandaged. She states her tetanus immunization is up-to-date. Her boss wanted to come for evaluation of her skin tear on her right arm. 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 Rheumatic fever Scleroderma Home Medications pregabalin 100 mg capsule (Lyrica) 75 mg PO TID 06/08/13 [History Last Taken 02/26/19] oxycodone myristate 13.5 mg capsule sprinkle extend release 12hr(DON'T CRUSH) (Xtampza ER) 13.5 mg PO BID 09/12/20 [History Last Taken Unknown] estradiol 1 mg tablet 1 mg PO DAILY 12/23/20 [History Last Taken Unknown] warfarin 2 mg tablet 2 mg PO DAILY 12/23/20 [History Last Taken Unknown] metoclopramide HCl 10 mg tablet 10 mg PO Q6H PRN nausea and vomiting #20 tabs 07/15/21 [Rx Last Taken Unknown] Allergy/AdvReac Type Severity Reaction Status Date / Time No Known Allergies Allergy Verified 04/08/22 16:48 Family History Sister Ovarian cancer Father CAD (coronary artery disease) Brother CAD (coronary artery disease) Other Asthma Breast cancer Cancer Surgical History History of appendectomy History of hernia repair History of hysterectomy Social History household members: spouse Smoking Status: Never smoker second hand exposure: No alcohol intake: never substance use type: does not use what type of physical activity do you participate in: walking frequency: 3-4 times per week lesly/anabaptism: None seatbelt use: always do you feel safe at home: Yes ROS ROS ED ROS Narrative Constitutional: No fever, no chills. HEENT: No sore throat. No neck pain. No loss of vision. No rhinorrhea. Cardiovascular: No chest pain. No palpitations. No pedal edema. Respiratory: No cough, no shortness of breath. Abdominal: No abdominal pain. No nausea. No vomiting. Genitourinary: No dysuria. No hematuria. Musculoskeletal: No myalgias. No arthralgias. Neurologic: No headaches. No dizziness. No lightheadedness. Skin: No rash. No change in color. In tear to right forearm, proximal portion. Psychiatric: No depression. No anxiety. EXAM Physical Exam Narrative Exam Narrative: Afebrile. Vital signs noted. HEENT: Normocephalic. Atraumatic. PERRL, EOMI. Neck soft and supple. No point tenderness or step off. Cardiovascular: Regular rate and rhythm. No murmurs, rubs, or gallops appreciated. Respiratory: No tachypnea. Lungs clear to auscultation bilaterally. Gastrointestinal: Abdomen soft, nontender, with normoactive bowel sounds. No rebound or guarding. Neurological: Awake. Alert. Nonfocal, nonlateralizing. Skin: No rash. Normal color. No pallor. Noted 2-1/2 cm skin tear to right forearm with dermal layer underneath the flap like skin tear. No active bleeding. Full range of motion of elbow and wrist. Palpable radial pulse. Small skin tear lateral to this, which the patient states she did at home prior to her work-related injury. Musculoskeletal: No pedal edema. Full range of motion extremities. Const Vital Signs: 04/08/22 16:48 Temperature 96.7 F L Temperature Source Temporal Pulse Rate 66 Respiratory Rate 18 Blood Pressure 165/73 H Blood Pressure Mean 103 Pulse Ox 97 Oxygen Delivery Method Room Air MDM MDM MDM Narrative Medical decision making narrative: I do not feel that the skin tear is amenable to suture closure. Her wound was cleansed. Steri-Strips will be applied in an attempt for at least partial closure of her skin tear. She is to look for signs of infection. She will follow-up with her primary care physician who she states will perform the Worker's Compensation paperwork. I feel that she can be discharged safely home with follow-up. Return instructions to the emergency department were reviewed. She was given the remainder the day off, the day of her injury. She will take [id number] medications for analgesia. Disposition is discharged home in stable condition. Discharge Plan Triage Chief Complaint: Laceration ED Provider: Leonel Bravo Dx/Rx/DC Orders Clinical Impression: Skin tear of right forearm without complication, Anticoagulant long-term use Instructions: ED Skin Avulsion Prescriptions: No Action estradiol 1 mg tablet 1 mg PO DAILY Rx Instructions: off 1 week; repeat cycle warfarin 2 mg tablet 2 mg PO DAILY pregabalin [Lyrica] 100 MG capsule 75 mg PO TID Xtampza ER 13.5 mg cap,sprinkl,ER12hr(DONT CRUSH) 13.5 mg PO BID metoclopramide HCl [metoclopramide HCl] 10 MG tablet 10 mg PO Q6H PRN (Reason: nausea and vomiting) Qty: 20 0RF Primary Care Provider: Wilton Navas Chi Referrals: Wilton Navas Chi, MD [Primary Care Provider] - 2 Days for wound check Disposition Disposition: Home, Self Care Discharge Date/Time: 04/08/22 17:49
[2022-04-08 17:49] VITALS: BP 134/78; PULSE 78; RESP 16; TEMP 36.6; O2SAT 99
== END 2022-04-08 17:49 | disposition home or self-care (01) ==
PROVIDERS: Emergency Provider Emergency Medicine; PCP Family Medicine Geriatric Medicine; Visit Provider Emergency Medicine
DX: S51.801A Unspecified open wound of right forearm, initial encounter (principal); Z79.01 Long term (current) use of anticoagulants; Z86.718 Personal history of other venous thrombosis and embolism; X58.XXXA Exposure to other specified factors, initial encounter
CPT/HCPCS: 99283; A4216

== ENCOUNTER → 2022-04-16 | Outpatient (CLI) | payer OTHER, MEDICARE, SELFPAY ==
[2022-04-16 13:18] LABS: Absolute Lymphocyte Count 2.02 X10^3/uL (0.83-4.51); Absolute Neutrophil Count 1.9 X10^3/uL (2.0-7.7); Basophil# 0.03 X10^3/uL; Basophil% 0.7 % (0-1); Eosinophils% 4.4 % (0-5); Hematocrit 41.3 % (37-47); Hemoglobin 13.9 g/dL (12.0-15.0); Lymphocyte # 2.02 X10^3/ul (0.83-4.51); Lymphocyte % 44.6 % (19-41); Mean Corp Hgb Conc 33.7 g/dL (32-36); Mean Corpuscular Hgb 31.4 pg (27.0-32.0); Mean Corpuscular Volume 93.2 fL (81-99); Mean Platelet Vol. 10.7 fl (6.2-12.0); Monocyte# 0.37 X10^3/uL; Monocyte% 8.2 % (0-10); NRBC Flagged by Analyzer 0 % (0-5); Neutrophil % 41.9 % (47-70); Platelet Count 249 K/mm3 (150-450); RBC Distribution Width CV 13.2 % (11.6-14.6); RBC Distribution Width SD 45.2 fl (35.1-43.9); Red Blood Count 4.43 M/mm3 (4.2-5.4); White Blood Count 4.5 K/mm3 (4.4-11.0)
[2022-04-16 13:32] LABS: Vitamin D,25 Hydroxy 22.6 ng/mL
[2022-04-16 13:48] LABS: ALB/GLOB Ratio 1.1 RATIO (0.9-2.4); AST(SGOT) 34 U/L (15-37); Alanine Aminotransfer ALT/SGPT 30 U/L (13-56); Albumin, Serum 3.4 g/dL (3.2-5.0); Alkaline Phosphatase 71 U/L (45-117); Anion Gap 4 (5-15); BUN 16 mg/dL (7-18); Calcium,Total 8.8 mg/dL (8.5-10.1); Chloride 106 mmol/L (98-107); EST Glomerular Filtration Rate 58 mL/min (>60); Est Glom Filt Rate - Afr Amer 71 mL/min (>60); Glucose 117 mg/dL (74-106); Potassium 3.6 mmol/L (3.5-5.1); Protein, Total 6.4 g/dL (6.4-8.2); Sodium Level 139 mmol/L (136-145)
== END | disposition home or self-care (01) ==
LOC: POLAB3 10:15
PROVIDERS: PCP Family Medicine Geriatric Medicine; Visit Provider Family Medicine Geriatric Medicine
DX: E55.9 Vitamin D deficiency, unspecified (principal); R53.83 Other fatigue
CPT/HCPCS: 36415; 80053; 82306; 84443; 85025

== ENCOUNTER → 2022-07-22 | Outpatient (CLI) | payer OTHER, MEDICARE, SELFPAY ==
[2022-07-22 13:08] LABS: Absolute Lymphocyte Count 1.59 X10^3/uL (0.83-4.51); Absolute Neutrophil Count 1.1 X10^3/uL (2.0-7.7); Basophil# 0.04 X10^3/uL; Basophil% 1.2 % (0-1); Eosinophil# 0.16 X10^3/uL; Hematocrit 42.7 % (37-47); Hemoglobin 14.5 g/dL (12.0-15.0); Lymphocyte # 1.59 X10^3/ul (0.83-4.51); Lymphocyte % 49.2 % (19-41); Mean Corpuscular Hgb 32.5 pg (27.0-32.0); Mean Corpuscular Volume 95.7 fL (81-99); Mean Platelet Vol. 10.4 fl (6.2-12.0); Monocyte# 0.38 X10^3/uL; Monocyte% 11.8 % (0-10); NRBC Flagged by Analyzer 0 % (0-5); Neutrophil # 1.05 X10^3/uL (2.7-7.7); Neutrophil % 32.5 % (47-70); Platelet Count 241 K/mm3 (150-450); RBC Distribution Width CV 12.7 % (11.6-14.6); RBC Distribution Width SD 44.8 fl (35.1-43.9); Red Blood Count 4.46 M/mm3 (4.2-5.4); White Blood Count 3.2 K/mm3 (4.4-11.0)
[2022-07-22 13:28] LABS: Vitamin D,25 Hydroxy 29.6 ng/mL
[2022-07-22 13:47] LABS: ALB/GLOB Ratio 1.2 RATIO (0.9-2.4); AST(SGOT) 29 U/L (15-37); Alanine Aminotransfer ALT/SGPT 23 U/L (13-56); Albumin, Serum 3.6 g/dL (3.2-5.0); Alkaline Phosphatase 67 U/L (45-117); Anion Gap 3 (5-15); BUN 12 mg/dL (7-18); BUN/Creat Ratio 14.1 RATIO (10-20); Calcium,Total 8.6 mg/dL (8.5-10.1); Chloride 107 mmol/L (98-107); Creatinine, Serum 0.85 mg/dL (0.55-1.02); EST Glomerular Filtration Rate 70 mL/min (>60); Est Glom Filt Rate - Afr Amer 85 mL/min (>60); Glucose 69 mg/dL (74-106); Potassium 3.5 mmol/L (3.5-5.1); Protein, Total 6.6 g/dL (6.4-8.2); Sodium Level 139 mmol/L (136-145); Thyroid Stim Hormone (TSH) 0.58 uIU/mL (0.358-3.74)
== END | disposition home or self-care (01) ==
LOC: POLAB3 10:27
PROVIDERS: PCP Family Medicine Geriatric Medicine; Visit Provider Family Medicine Geriatric Medicine
DX: E55.9 Vitamin D deficiency, unspecified (principal); R53.83 Other fatigue
CPT/HCPCS: 36415; 80053; 82306; 84443; 85025

== ENCOUNTER → 2022-07-30 | Outpatient (CLI) | payer MEDICARE, OTHER, SELFPAY ==
--- NOTE | 2022-07-30 09:46 | BI_ITS ---
MAMMOGRAPHY - BILATERAL SCREENING REASON FOR EXAM: Female, 67 years old. Routine annual screening examination. PERTINENT HISTORY: Sister with breast cancer. TECHNIQUE: Digital bilateral breast lorena (3D mammographic acquisition) in the CC and MLO projections. 2-D mediolateral oblique (MLO) and craniocaudad (CC) views of both breasts were obtained. CAD: Full Field Digital Mammography with Computer Added Detection was performed. COMPARISON: Comparison is made with prior study December 30, 2020 and July 16, 2015. FINDINGS: Breast Composition: The breasts are heterogeneously dense, which may obscure small masses. There are no dominant masses or suspicious calcifications. Stable small benign-appearing bilateral axillary lymph nodes. No other significant abnormalities are identified. There has been no significant change since the prior study. BI/SCRN MAMM (CAD)W/LORENA BILAT IMPRESSION: Stable bilateral screening mammogram. Yearly follow-up mammogram recommended. (A) ASSESSMENT CATEGORY: BIRADS Category 2: Benign. A letter regarding these results will be sent to the patient by the facility within 30 days. Approximately 10% of breast cancers are not detected by mammography. A normal mammogram should not delay biopsy of a clinically suspicious abnormality. [id number] Electronically Signed: Chicho Hercules MD at 11:01 EDT ,
[2022-07-30 12:37] LABS: Amphetamine Urine VISTA NEGATIVE (<1000 ng/mL); Barbiturate Urine VISTA NEGATIVE (< 200 ng/mL); Benzodiazepine Urine VISTA NEGATIVE (< 200 ng/mL); Cocaine Urine VISTA NEGATIVE (< 300 ng/mL); Ecstacy Urine VISTA NEGATIVE (< 500 ng/mL); Methadone Urine VISTA NEGATIVE (< 300 ng/mL); PCP Urine VISTA NEGATIVE (< 25 ng/mL); THC Urine VISTA NEGATIVE (< 50 ng/mL); Vista UDS pH Range 7
== END | disposition home or self-care (01) ==
PROVIDERS: Anesthesiology Pain Medicine; PCP Family Medicine Geriatric Medicine; Referring Provider Family Medicine Geriatric Medicine; Visit Provider Family Medicine Geriatric Medicine
DX: Z12.31 Encounter for screening mammogram for malignant neoplasm of breast (principal); F11.20 Opioid dependence, uncomplicated; Z80.3 Family history of malignant neoplasm of breast
CPT/HCPCS: 77063; 77067; 80307

== ENCOUNTER 2022-08-06 17:36 | Observation (INO) | payer MEDICARE, OTHER, SELFPAY ==
[2022-08-06 17:37] VITALS: BP 188/99; PULSE 90; RESP 16; TEMP 36.6; O2SAT 99; BMI 25.2
--- NOTE | 2022-08-06 18:15 | RAD_ITS ---
INDICATION: TRAUMA -- IN ED WAITING ROOM EXAMINATION/TECHNIQUE: X-RAY - LEFT XR Knee 3 VIEWS COMPARISON: FINDINGS: SOFT TISSUES: There is a subcutaneous mass along the distal thigh medially measuring 8.5 x 3.4 cm. No radiopaque foreign body. BONES/JOINTS: No acute fracture or subluxation.. Normal alignment. Preservation of the joint space.. No sclerotic or destructive changes observed. RAD/Knee 4 or More Views IMPRESSION: A medial subcutaneous mass at the distal thigh, possibly a hematoma. Electronically Signed: Carl Trinidad DO at 18:31 EDT ,
--- NOTE | 2022-08-06 19:15 | CT_ITS ---
CT LEFT LOWER EXTREMITY WITH 3-D IMAGING CLINICAL INDICATION: hematoma TECHNIQUE: Axial CT images of the LEFT lower extremity was performed with IV contrast material. Coronal and sagittal reformats were provided. RADIATION DOSAGE (If Supplied By Facility): CTDIvol = ( 15.44 ) mGy, DLP = ( 1379.00 ) mGycm COMPARISON: FINDINGS: Bones: Osseous structures are normal without evidence of fracture or dislocation. No lytic or blastic osseous masses. Soft Tissues: There is a 6.8 x 8.1 x 6.8 cm subdermal mass along the anteromedial aspect of the distal thigh likely representing a hematoma . Mild adjacent subcutaneous edema. CT/Extremity Lower without Contra IMPRESSION: There is a subdermal mass likely a hematoma in the distal thigh anteromedially. Electronically Signed: Carl Trinidad DO at 21:38 EDT Reading Location ID and State: [facility] / [place] Tel [phone], Service support ,
[2022-08-06] MEDS: Ondansetron 4 MG/2 ML Vial IV (19:40)
[2022-08-06] MEDS: Morphine 4 MG/ML Syringe IV ×2 (19:40→22:18)
[2022-08-06 19:47] VITALS: BP 190/100; PULSE 99; RESP 22; O2SAT 96
[2022-08-06 19:51] LABS: Absolute Neutrophil Count 2.6 X10^3/uL (2.0-7.7); Basophil# 0.04 X10^3/uL; Basophil% 0.8 % (0-1); Eosinophil# 0.25 X10^3/uL; Eosinophils% 4.9 % (0-5); Hematocrit 41.5 % (37-47); Hemoglobin 13.7 g/dL (12.0-15.0); Lymphocyte % 31.4 % (19-41); Mean Corpuscular Hgb 31.8 pg (27.0-32.0); Mean Corpuscular Volume 96.3 fL (81-99); Monocyte# 0.55 X10^3/uL; Monocyte% 10.8 % (0-10); NRBC Flagged by Analyzer 0 % (0-5); Neutrophil # 2.64 X10^3/uL (2.7-7.7); Neutrophil % 51.9 % (47-70); Platelet Count 262 K/mm3 (150-450); RBC Distribution Width CV 12.3 % (11.6-14.6); RBC Distribution Width SD 44.2 fl (35.1-43.9); Red Blood Count 4.31 M/mm3 (4.2-5.4); White Blood Count 5.1 K/mm3 (4.4-11.0)
--- NOTE | 2022-08-06 19:58 | ED.VIS.LOWEX ---
HPI History of Present Illness Chief Complaint: Lower Extremity Injury Narrative Narrative: 67-year-old female with left knee hematoma. She states that she bumped her knee at about 430 today on a table. She states she had about a quarter size hematoma on it. She states it was hurting so she went to see her primary care physician. She is on Coumadin. She reports that her INR was normal in office. Patient notes that since 430 her hematoma has expanded and she states it is 10/10 of pain. It is now 6 or 7 cm across the anterior superior portion of her left knee. She states that she feels pain up into her left thigh. She states she cannot walk because it is too painful. She does not have any numbness or tingling below the level of the injury. 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 Rheumatic fever Scleroderma Home Medications pregabalin 100 mg capsule (Lyrica) 75 mg PO TID 06/08/13 [History Last Taken 02/26/19] oxycodone myristate 13.5 mg capsule sprinkle extend release 12hr(DON'T CRUSH) (Xtampza ER) 13.5 mg PO BID 09/12/20 [History Last Taken Unknown] estradiol 1 mg tablet 1 mg PO DAILY 12/23/20 [History Last Taken Unknown] warfarin 2 mg tablet 2 mg PO DAILY 12/23/20 [History Last Taken Unknown] metoclopramide HCl 10 mg tablet 10 mg PO Q6H PRN nausea and vomiting #20 tabs 07/15/21 [Rx Last Taken Unknown] amitriptyline 25 mg tablet 25 mg PO DAILY 08/06/22 [History Last Taken Unknown] Allergy/AdvReac Type Severity Reaction Status Date / Time No Known Allergies Allergy Verified 08/06/22 17:38 Family History Sister Ovarian cancer Father CAD (coronary artery disease) Brother CAD (coronary artery disease) Other Asthma Breast cancer Cancer Surgical History History of appendectomy History of hernia repair History of hysterectomy Social History household members: spouse Smoking Status: Never smoker second hand exposure: No alcohol intake: never substance use type: does not use what type of physical activity do you participate in: walking frequency: 3-4 times per week lesly/caodaism: None seatbelt use: always do you feel safe at home: Yes ROS ROS ED Review of Systems ROS Unobtainable: Denies due to encephalopathy Constitutional Constitutional ED: Denies chills or fever(s) Eyes Eyes: Denies blurry vision or change in vision ENT ENT ED: Denies rhinorrhea Cardiovascular Cardiovascular: Denies chest pain or palpitations Respiratory/Chest Respiratory/Chest: Denies cough or dyspnea Gastrointestinal Gastrointestinal: Denies abdominal pain or constipation Genitourinary Genitourinary ED: Denies dysuria or hematuria Musculoskeletal Musculoskeletal: Reports other Details: Left knee pain, left thigh pain/hematoma of left knee and thigh ; Denies arthralgias or back pain Integumentary Denies abscess Neurologic Neurologic: Denies headache(s) Psychiatric Psychiatric: Denies anxiety, depression or suicidal ideation EXAM Physical Exam Const Vital Signs: 08/06/22 17:37 08/06/22 19:47 08/06/22 21:13 Temperature 98 F Temperature Source Temporal Pulse Rate 90 99 67 Respiratory Rate 16 22 H 16 Blood Pressure 188/99 H 190/100 H 167/70 H Blood Pressure Mean 128 130 102 Pulse Ox 99 96 98 Oxygen Delivery Method Room Air Room Air Room Air 08/06/22 23:04 Temperature 98.0 F Temperature Source Temporal Pulse Rate 60 Respiratory Rate 18 Blood Pressure 141/74 H Blood Pressure Mean 96 Pulse Ox 97 Oxygen Delivery Method Room Air Positive well nourished HEENT normocephalic and trauma Resp normal respiratory effort and no retractions Auscultation: Negative for rales or rhonchi Cardio regular rate and regular rhythm Neuro oriented x3 and CN's II-XII intact bilaterally Sensorium / Orientation: alert Motor Exam: strength 5/5 throughout Psych mental status grossly normal Skin Skin Narrative: There is a hematoma which is about 6 to 7 cm circular on the suprapatellar region. There is surrounding minor erythema consistent with early hematoma which ran several centimeters surrounding this. Range of motion appears okay. No ligamentous laxity. Exquisitely tender to palpation. MDM MDM MDM Narrative Medical decision making narrative: Patient presenting with hematoma. She states this is expanded since it initially happened about 430. She states the pain is getting worse. X-ray of the left knee shows a hematoma in the medial subcutaneous tissue on my interpretation. Radiology interprets this as a mass likely hematoma. Patient still in a lot of pain. Obtained a CBC and BMP to assess for anemia, electrolytes, glucose, anion gap. We will obtain a CT of the left lower extremity with IV contrast. Patient medicated morphine and Zofran. CBC shows a normal white blood cell count. Hemoglobin hematocrit are stable. Platelets are normal. INR subtherapeutic at 1.7 renal function electrolytes are normal. LFTs are normal. Patient requested a second dose of morphine. This was provided. CT of the lower extremity was obtained and does not show anything more than a subdermal mass. Patient is still in quite a lot of pain and I gave her an oxycodone. Discussed with Dr. Pruett who recommended admitting her for comfort. He did come and evaluate the patient. He ordered her Polar Care. He offered to splint her in flexion to alleviate some of the pain but she declined. Patient was discussed with hospitalist for admission. Impression: 1. Left knee contusion 2. Left knee hematoma 3. Intractable left knee pain Lab Data Attestation: I reviewed the patient's lab results. Labs: Laboratory Results - last 24 hr 08/06/22 08/06/22 08/06/22 19:35 19:35 19:35 WBC 5.1 RBC 4.31 Hgb 13.7 Hct 41.5 MCV 96.3 MCH 31.8 MCHC 33.0 RDW Std Deviation 44.2 H RDW Coeff of [place] 12.3 Plt Count 262 MPV 10.0 Immature Gran % (Auto) 0.200 Neut % (Auto) 51.9 Lymph % (Auto) 31.4 [place] % (Auto) 10.8 H Eos % (Auto) 4.9 Baso % (Auto) 0.8 Absolute Neuts (auto) 2.6 Absolute Lymphs (auto) 1.60 Nucleated RBC % 0 PT 20.1 H INR 1.7 Sodium 141 Potassium 3.4 L Chloride 106 Carbon Dioxide 30.0 Anion Gap 5 BUN 17 Creatinine 0.83 Estim Creat Clear Calc 50.59 Est GFR (MDRD) Af Amer 87 Est GFR (MDRD) Non-Af 72 BUN/Creatinine Ratio 20.5 H Glucose 99 Calcium 8.6 Total Bilirubin 0.40 AST 31 ALT 26 Alkaline Phosphatase 71 Total Protein 6.2 L Albumin 3.6 Globulin 2.6 Albumin/Globulin Ratio 1.4 Radiography Diagnostic Testing: Clinical Impression(s) from Imaging Studies Knee X-Ray 08/06/22 18:15 IMPRESSION: A medial subcutaneous mass at the distal thigh, possibly a hematoma. Electronically Signed: Carl Trinidad DO at 18:31 EDT , Lower Extremity CT 08/06/22 19:15 IMPRESSION: There is a subdermal mass likely a hematoma in the distal thigh anteromedially. Electronically Signed: Carl Trinidad DO at 21:38 EDT , Discharge Plan Triage Chief Complaint: Lower Extremity Injury ED Provider: Marco Antonio Bhandari Dx/Rx/DC Orders Prescriptions: No Action estradiol 1 mg tablet 1 mg PO DAILY Rx Instructions: off 1 week; repeat cycle warfarin 2 mg tablet 2 mg PO DAILY pregabalin [Lyrica] 100 MG capsule 75 mg PO TID Xtampza ER 13.5 mg cap,sprinkl,ER12hr(DONT CRUSH) 13.5 mg PO BID metoclopramide HCl [metoclopramide HCl] 10 MG tablet 10 mg PO Q6H PRN (Reason: nausea and vomiting) Qty: 20 0RF amitriptyline 25 mg tablet 25 mg PO DAILY Primary Care Provider: Wiltno Navas Chi Referrals: Wilton Navas Chi, MD [Primary Care Provider] -
[2022-08-06 20:13] LABS: ALB/GLOB Ratio 1.4 RATIO (0.9-2.4); AST(SGOT) 31 U/L (15-37); Alanine Aminotransfer ALT/SGPT 26 U/L (13-56); Albumin, Serum 3.6 g/dL (3.2-5.0); Alkaline Phosphatase 71 U/L (45-117); Anion Gap 5 (5-15); BUN 17 mg/dL (7-18); BUN/Creat Ratio 20.5 RATIO (10-20); Calcium,Total 8.6 mg/dL (8.5-10.1); Chloride 106 mmol/L (98-107); Creatinine, Serum 0.83 mg/dL (0.55-1.02); EST Glomerular Filtration Rate 72 mL/min (>60); Est Glom Filt Rate - Afr Amer 87 mL/min (>60); Estimated Creatinine Clearance 50.59 ml/min; Globulin 2.6 g/dL (2.2-4.2); Glucose 99 mg/dL (74-106); Potassium 3.4 mmol/L (3.5-5.1); Protein, Total 6.2 g/dL (6.4-8.2); Sodium Level 141 mmol/L (136-145)
[2022-08-06 20:15] LABS: International Normalized Ratio 1.7; Prothrombin Time (Protime)PT. 20.1 SECONDS (11.7-14.9)
[2022-08-06 21:13] VITALS: BP 167/70; PULSE 67; RESP 16; O2SAT 98
[2022-08-06 23:04] VITALS: BP 141/74; PULSE 60; RESP 18; TEMP 36.7; O2SAT 97
[2022-08-06] MEDS: oxyCODONE 5 MG Tablet PO (23:14)
--- NOTE | 2022-08-06 23:28 | CON.PCM.OR_ITS ---
HPI Consult Data Date of Consult: 08/06/22 HPI Narrative HPI Narrative: JOSÉ ZALDIVAR, is a 67 F who presents with left distal medial thigh bruising and swelling and pain. Patient had hit to the thigh on table at about 3:30 PM. Was seen by Dr. Navas. Tried to put the knee in flexion with some ice but the pain became worse so presented to the ED. Patient is on blood thinners due to history of DVT in the legs within the last year. 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 Rheumatic fever Scleroderma Home Medications pregabalin 100 mg capsule (Lyrica) 75 mg PO TID 06/08/13 [History Last Taken 02/26/19] oxycodone myristate 13.5 mg capsule sprinkle extend release 12hr(DON'T CRUSH) (Xtampza ER) 13.5 mg PO BID 09/12/20 [History Last Taken Unknown] estradiol 1 mg tablet 1 mg PO DAILY 12/23/20 [History Last Taken Unknown] warfarin 2 mg tablet 2 mg PO DAILY 12/23/20 [History Last Taken Unknown] metoclopramide HCl 10 mg tablet 10 mg PO Q6H PRN nausea and vomiting #20 tabs 07/15/21 [Rx Last Taken Unknown] amitriptyline 25 mg tablet 25 mg PO DAILY 08/06/22 [History Last Taken Unknown] Allergy/AdvReac Type Severity Reaction Status Date / Time No Known Allergies Allergy Verified 08/06/22 17:38 Family History Sister Ovarian cancer Father CAD (coronary artery disease) Brother CAD (coronary artery disease) Other Asthma Breast cancer Cancer Surgical History History of appendectomy History of hernia repair History of hysterectomy Social History household members: spouse Smoking Status: Never smoker second hand exposure: No alcohol intake: never substance use type: does not use what type of physical activity do you participate in: walking frequency: 3-4 times per week lesly/restorationism: None seatbelt use: always do you feel safe at home: Yes Vital Signs Vital Signs Vital Signs: 08/06/22 17:37 08/06/22 19:47 08/06/22 21:13 Temperature 98 F Temperature Source Temporal Pulse Rate 90 99 67 Respiratory Rate 16 22 H 16 Blood Pressure 188/99 H 190/100 H 167/70 H Blood Pressure Mean 128 130 102 Pulse Ox 99 96 98 Oxygen Delivery Method Room Air Room Air Room Air 08/06/22 23:04 Temperature 98.0 F Temperature Source Temporal Pulse Rate 60 Respiratory Rate 18 Blood Pressure 141/74 H Blood Pressure Mean 96 Pulse Ox 97 Oxygen Delivery Method Room Air Weight Weight: 138 lb Body Mass Index (BMI) 25.2 Physical Exam Const alert General Appearance: cooperative HEENT normocephalic Resp normal respiratory effort Cardio regular rate Extremity normal capillary refill Extremity Narrative: the left distal thigh on the medial side at the VMO area there is a moderate- sized quadriceps hematoma in the subcutaneous tissues. This is consistent in size with the CT report. Thigh compartments are soft both anteriorly and posteriorly as well as all 4 compartments of the calf below the knee. There is no knee effusion. No pain proximally or at the ankle or calf. Normal sensation motor function the foot foot is warm and well-perfused strong dorsalis pedis pulse. Able to wiggle the toes dorsiflex plantarflex the foot no pain on passive stretch. Lab / Micro Data Result Diagrams: 08/06/22 19:35 08/06/22 19:35 Labs: Laboratory Results - last 24 hr 08/06/22 19:35: WBC 5.1, RBC 4.31, Hgb 13.7, Hct 41.5, MCV 96.3, MCH 31.8, MCHC 33.0, RDW Std Deviation 44.2 H, RDW Coeff of [place] 12.3, Plt Count 262, MPV 10.0, Immature Gran % (Auto) 0.200, Neut % (Auto) 51.9, Lymph % (Auto) 31.4, [place] % (Auto) 10.8 H, Eos % (Auto) 4.9, Baso % (Auto) 0.8, Absolute Neuts (auto) 2.6, Absolute Lymphs (auto) 1.60, Nucleated RBC % 0 08/06/22 19:35: PT 20.1 H, INR 1.7 08/06/22 19:35: Sodium 141, Potassium 3.4 L, Chloride 106, Carbon Dioxide 30.0, Anion Gap 5, BUN 17, Creatinine 0.83, Estim Creat Clear Calc 50.59, Est GFR (MDRD) Af Amer 87, Est GFR (MDRD) Non-Af 72, BUN/Creatinine Ratio 20.5 H, Glucose 99, Calcium 8.6, Total Bilirubin 0.40, AST 31, ALT 26, Alkaline Phosphatase 71, Total Protein 6.2 L, Albumin 3.6, Globulin 2.6, Albumin/Globulin Ratio 1.4 Radiology Impression Knee X-Ray 08/06/22 18:15 IMPRESSION: A medial subcutaneous mass at the distal thigh, possibly a hematoma. Electronically Signed: Carl Trinidad DO at 18:31 EDT , Lower Extremity CT 08/06/22 19:15 IMPRESSION: There is a subdermal mass likely a hematoma in the distal thigh anteromedially. Electronically Signed: Carl Trinidad DO at 21:38 EDT , Agree with the CT and x-ray assessments Assessment & Plan Assessment/Plan (1) Contusion of left thigh, initial encounter: PLAN: 67-year-old female with a left quadriceps hematoma. Unable to manage at home therefore I have asked the ED physician to call the hospitalist to admit the patient for pain control and other medical management. Recommended to the patient to keep the knee in flexion and brought an David wrap to accomplish this but the patient declined. Warned about risk of calcification / myositis ossificans. Also would recommend Polar Care 10 minutes on 10 minutes off to dec rease the pain and swelling as well as holding the anticoagulation. Please call with concerns okay to follow-up as an outpatient. Weightbearing as tolerated.
[2022-08-07] VITALS (7 sets, daily range): BP systolic 113–138; BP diastolic 52–67; PULSE 54–60; RESP 14–16; TEMP 35.9–36.8; O2SAT 98–100; BMI 25.2
--- NOTE | 2022-08-07 00:15 | PCM.HP.STD ---
HPI - General General Date of Admission: 08/07/22 Date of Service: 08/07/22 Chief Complaint: Hematoma of left knee HPI Narrative JOSÉ ZALDIVAR, is a 67 F with a significant history of DVT on Coumadin who presents with hematoma of the left knee. Reportedly patient bumped her left knee into a table and developed a small hematoma about a quarter size which kept expanding. She went to see her PCP but due to the increased expansion of the hematoma patient came to the emergency department. She had an appointment to see orthopedic doctor outpatient but she could not wait so she came in to the ED. Associated with her symptoms is excruciating pain of the hematoma area . Emergency department doctor discussed the case with orthopedic surgeon who came to the ED to see patient. 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 Rheumatic fever Scleroderma Home Medications pregabalin 100 mg capsule (Lyrica) 75 mg PO TID 06/08/13 [History Last Taken 02/26/19] oxycodone myristate 13.5 mg capsule sprinkle extend release 12hr(DON'T CRUSH) (Xtampza ER) 13.5 mg PO BID 09/12/20 [History Last Taken Unknown] estradiol 1 mg tablet 1 mg PO DAILY 12/23/20 [History Last Taken Unknown] warfarin 2 mg tablet 2 mg PO DAILY 12/23/20 [History Last Taken Unknown] metoclopramide HCl 10 mg tablet 10 mg PO Q6H PRN nausea and vomiting #20 tabs 07/15/21 [Rx Last Taken Unknown] amitriptyline 25 mg tablet 25 mg PO DAILY 08/06/22 [History Last Taken Unknown] Allergy/AdvReac Type Severity Reaction Status Date / Time No Known Allergies Allergy Verified 08/06/22 17:38 Family History Sister Ovarian cancer Father CAD (coronary artery disease) Brother CAD (coronary artery disease) Other Asthma Breast cancer Cancer Surgical History History of appendectomy History of hernia repair History of hysterectomy Social History household members: spouse Smoking Status: Never smoker second hand exposure: No alcohol intake: never substance use type: does not use what type of physical activity do you participate in: walking frequency: 3-4 times per week lesly/roman catholic: None seatbelt use: always do you feel safe at home: Yes ROS ROS Narrative Pertinent positives and pertinent negatives as noted in HPI. All other systems were reviewed and are negative Vital Signs Vital Signs Vital Signs: 08/06/22 17:37 08/06/22 19:47 08/06/22 21:13 Temperature 98 F Temperature Source Temporal Pulse Rate 90 99 67 Respiratory Rate 16 22 H 16 Blood Pressure 188/99 H 190/100 H 167/70 H Blood Pressure Mean 128 130 102 Pulse Ox 99 96 98 Oxygen Delivery Method Room Air Room Air Room Air 08/06/22 23:04 Temperature 98.0 F Temperature Source Temporal Pulse Rate 60 Respiratory Rate 18 Blood Pressure 141/74 H Blood Pressure Mean 96 Pulse Ox 97 Oxygen Delivery Method Room Air Weight Weight: 62.596 kg Body Mass Index (BMI) 25.2 Physical Exam Narrative Physical exam: General: Well-nourished, well-developed. Head: Normocephalic, atraumatic, no tenderness Eyes: Vision is grossly intact. EOMI ENT, no trauma, moist mucous membranes, no rhinorrhea Neck: Nontender, No thyromegaly. CVS: Regular rate and rhythm. S1-S2 present. No murmur, gallop or rub. Respiratory : clear to auscultation bilaterally, chest wall nontender Abdomen: Soft, nontender, nondistended, normal bowel sounds, no masses : Deferred Back: Nontender, no CVA tenderness, no midline spinal tenderness, deformities, step-offs Extremities: Bloody bullae on left knee. Right knee unremarkable. Skin: Normal color, no trauma, abrasions Neuro: Alert, oriented, cranial nerves II through XII grossly intact. Psychiatry: Normal mood. Normal affect. Not depressed. Not anxious. Results Lab / Micro Data Result Diagrams: 08/06/22 19:35 08/06/22 19:35 Labs: Laboratory Results - last 24 hr 08/06/22 19:35: WBC 5.1, RBC 4.31, Hgb 13.7, Hct 41.5, MCV 96.3, MCH 31.8, MCHC 33.0, RDW Std Deviation 44.2 H, RDW Coeff of Idalia 12.3, Plt Count 262, MPV 10.0, Immature Gran % (Auto) 0.200, Neut % (Auto) 51.9, Lymph % (Auto) 31.4, [place] % (Auto) 10.8 H, Eos % (Auto) 4.9, Baso % (Auto) 0.8, Absolute Neuts (auto) 2.6, Absolute Lymphs (auto) 1.60, Nucleated RBC % 0 08/06/22 19:35: PT 20.1 H, INR 1.7 08/06/22 19:35: Sodium 141, Potassium 3.4 L, Chloride 106, Carbon Dioxide 30.0, Anion Gap 5, BUN 17, Creatinine 0.83, Estim Creat Clear Calc 50.59, Est GFR (MDRD) Af Amer 87, Est GFR (MDRD) Non-Af 72, BUN/Creatinine Ratio 20.5 H, Glucose 99, Calcium 8.6, Total Bilirubin 0.40, AST 31, ALT 26, Alkaline Phosphatase 71, Total Protein 6.2 L, Albumin 3.6, Globulin 2.6, Albumin/Globulin Ratio 1.4 Radiology Impression Knee X-Ray 08/06/22 18:15 IMPRESSION: A medial subcutaneous mass at the distal thigh, possibly a hematoma. Electronically Signed: Carl Trinidad DO at 18:31 EDT , Lower Extremity CT 08/06/22 19:15 IMPRESSION: There is a subdermal mass likely a hematoma in the distal thigh anteromedially. Electronically Signed: Carl Trinidad DO at 21:38 EDT , Assessment & Plan Assessment/Plan (1) Traumatic hematoma of knee: PLAN: Plan Traumatic hematoma of left knee/distal left thigh Radiologist impression of knee x-ray:A medial subcutaneous mass at the distal thigh, possibly a hematoma. Hospitalist independent interpretation of knee x-ray: Knee x-ray was independently interpreted and I agree with radiology interpretation above. Extremity CT with findings consistent with hematoma. Hold Coumadin. PT/INR on presentation 20.1/1.7. Trend PT/INR. CBC is unremarkable, trend. Morphine as needed ordered. Polar Care per orthopedic recommendations. Hypokalemia Mild with potassium 3.4. Trend BMP. DVT prophylaxis SCDs ordered. Charges/Coding Visit Charges Inpatient E&M: 74363 Init Hosp L2
[2022-08-07] MEDS: Morphine 4 MG/ML Syringe IV (02:50)
[2022-08-07 05:49] LABS: Absolute Lymphocyte Count 1.59 X10^3/uL (0.83-4.51); Basophil# 0.04 X10^3/uL; Basophil% 0.6 % (0-1); Eosinophils% 3.1 % (0-5); Hematocrit 40.2 % (37-47); Hemoglobin 13.2 g/dL (12.0-15.0); Lymphocyte # 1.59 X10^3/ul (0.83-4.51); Lymphocyte % 24.6 % (19-41); Mean Corp Hgb Conc 32.8 g/dL (32-36); Mean Corpuscular Hgb 31.9 pg (27.0-32.0); Mean Corpuscular Volume 97.1 fL (81-99); Mean Platelet Vol. 9.9 fl (6.2-12.0); Monocyte% 9.3 % (0-10); NRBC Flagged by Analyzer 0 % (0-5); Neutrophil # 4.02 X10^3/uL (2.7-7.7); Neutrophil % 62.1 % (47-70); Platelet Count 231 K/mm3 (150-450); RBC Distribution Width CV 12.4 % (11.6-14.6); RBC Distribution Width SD 44.5 fl (35.1-43.9); Red Blood Count 4.14 M/mm3 (4.2-5.4); White Blood Count 6.5 K/mm3 (4.4-11.0)
[2022-08-07 05:59] LABS: International Normalized Ratio 1.7; Prothrombin Time (Protime)PT. 19.6 SECONDS (11.7-14.9)
[2022-08-07 06:24] LABS: Anion Gap 5 (5-15); BUN 18 mg/dL (7-18); BUN/Creat Ratio 25.3 RATIO (10-20); Calcium,Total 8.3 mg/dL (8.5-10.1); Chloride 108 mmol/L (98-107); Creatinine, Serum 0.71 mg/dL (0.55-1.02); EST Glomerular Filtration Rate 87 mL/min (>60); Est Glom Filt Rate - Afr Amer 105 mL/min (>60); Estimated Creatinine Clearance 41.99 ml/min; Glucose 102 mg/dL (74-106); Potassium 3.4 mmol/L (3.5-5.1); Sodium Level 141 mmol/L (136-145)
[2022-08-07] MEDS: oxyCODONE 5 MG Tablet 10 MG PO (06:32)
[2022-08-07] MEDS: Pregabalin 75 MG Capsule PO ×2 (06:32→14:50)
[2022-08-07] MEDS: Estradiol 1 MG Tablet PO (09:04)
[2022-08-07] MEDS: Acetaminophen 500 MG Tablet 1000 MG PO ×2 (09:04→14:50)
[2022-08-07] MEDS: Amitriptyline 25 MG Tablet PO (09:05)
--- NOTE | 2022-08-07 11:10 | CASEMGMT ---
RN CM Face to Face with patient for initial transition planning/care coordination assessment. RN CM introduced self and role at [facility]. Patient lying in bed, alert and oriented, at bedside. Patient willing to participate in assessment and is able to answer all questions appropriately. Care providers, pharmacy, and demographics verified. Patient wishes to discharge home, will monitor progress with therapy. Patient states he has no further needs or concerns at this time. CM to follow for discharge planning needs that may arise. PCP: Yosef Specialists: Dr. Byers, [facility] at [place]; Basali, pain [facility] Benef[facility]: yes Living Will/HPOA: none LNOK: Living Arrangements: Patient lives with in a single story home with 2 steps and railing to enter the home. Patient states she is independent at home. Transportation: self, DME/HHC: Patient has shower chair, cane, walker, and grab bars at home. No previous HHC or SNF. Discussed possible SNF vs HHC and observation status. CM will monitor patient's progress with therapy Disposition Plan: Patient to discharge to home with family support and follow-up plans in place. Merline PENALOZA, RN, CM
--- NOTE | 2022-08-07 15:15 | PCM.DC.SUM ---
Providers Date of Admission: 08/07/22 Date of Discharge: 08/07/22 Primary Care Physician: Dr. Wilton Navas MD Reason For Visit: LEFT KNEE HEMATOMA Diagnosis Discharge Diagnosis (1) Traumatic hematoma of knee: Status: Acute Code(s): S80.00XA - Contusion of unspecified knee, initial encounter Medications at Discharge Home Medications pregabalin 100 mg capsule (Lyrica) 75 mg PO TID 06/08/13 oxycodone myristate 13.5 mg capsule sprinkle extend release 12hr(DON'T CRUSH) (Xtampza ER) 13.5 mg PO BID 09/12/20 estradiol 1 mg tablet 1 mg PO DAILY 12/23/20 warfarin 2 mg tablet 2 mg PO DAILY 12/23/20 metoclopramide HCl 10 mg tablet 10 mg PO Q6H PRN nausea and vomiting #20 tabs 07/15/21 amitriptyline 25 mg tablet 25 mg PO DAILY 08/06/22 acetaminophen 500 mg tablet 1,000 mg PO Q8 #0 tabs 08/07/22 Hospital Course Operations None Procedures - (CT of left leg) Summary of Care Provided Minutes Spent on Discharge: 37 Hospital Course: Mrs. Ervin is a 67-year-old female who is on chronic Coumadin secondary to history of recurrent DVTs, presented to the emergency department at [facility] on 08/07/2022 for left lower extremity hematoma.. She states she had tried other anticoagulants but did not tolerate them due to GI distress. At about 4:30 in the afternoon on the day of presentation she bumped her knee on a table and immediately had about a quarter sized hematoma in the area of the trauma. She reported it began hurting so she went to see her primary care physician and an INR was checked. Her INR was normal at that time. Since that point in time the hematoma had expanded and she was complaining of severe pain in her left leg. The hematoma was now about 6 to 7 cm and very superficial. She was complaining of pain up into her left thigh and reported she was not able to walk secondary to the pain. She did not have any tingling or numbness at any time from her emergency department visit through discharge, no significant lower extremity swelling, and pedal pulses were stable. The emergency department physician consulted orthopedic surgery after CT was performed and demonstrated a subdermal hematoma that was 6.8 x 8.1 x 6.8 cm in the anterior medial aspect of the distal thigh and no muscle or bone involvement. Orthopedic surgery evaluated the patient and felt she did not need any surgical intervention and recommended admission to the hospital service for pain control and to be evaluated by physical therapy. He recommended the patient to keep her knee somewhat in flexion and placed an David wrap which the patient declined secondary to pain. He did discuss her risk for calcification and myositis ossificans with the patient at that time. He also recommended ice for 10 minutes on 10 minutes off to decrease pain and swelling. The patient is on chronic pain medication through pain management for her rheumatoid arthritis. Overall she she did fairly well with just her baseline medication Xtampza, Lyrica, and scheduled Tylenol 1000 mg every 8. She was evaluated by physical therapy and did fairly well. They recommended no ongoing therapy services. She does work at [employer] part-time and I have recommended she is off for the next 2 weeks so she can keep her leg elevated. I also recommended to her to be mobile as much as possible to prevent DVT while she is off Coumadin as this has been held due to this contusion/hematoma. Her last lower extremity ultrasound that was positive for DVT was from 2020 she has had subsequent ultrasounds that are negative for any clot. Her hemoglobin was stable throughout her entire hospital course. I have asked her to hold this until she follows up with orthopedic surgery. She is to call Dr. Pruett's office on Wednesday to schedule a follow-up appointment and have asked her to follow-up with her primary care physician in the next week. She was discharged home in stable condition on 08/07/2022. I have asked her to come back to the emergency department if she develops any more significant swelling, coldness in her foot or develops any tingling and numbness. She voiced understanding. Discharge diagnoses: Left superficial thigh hematoma Supratherapeutic INR due to chronic Coumadin use History of recurrent DVTs Rheumatoid arthritis Scleroderma Cluster headaches GERD Fibromyalgia Hyperlipidemia Hypothyroidism History of melanoma Physical Exam Const alert, oriented x3, no apparent distress, average body habitus and well nourished Constitutional Narrative: Upper middle-aged white female, sitting up in bed, appears somewhat uncomfortable but nontoxic General Appearance: cooperative, comfortable, well kempt and well developed Orientation / Consciousness: awake, oriented to person, oriented to place and oriented to time Exam Limitations: no limitations HEENT normocephalic, head/scalp atraumatic and hearing grossly normal bilaterally HEENT Narrative: Mallampati 2, no thrush Eyes PERRL, EOMs intact bilaterally and conjunctivae normal Neck no lymphadenopathy, supple and no JVD Resp normal respiratory effort, no retractions, no use of accessory muscles and clear to auscultation bilaterally Auscultation: Negative for rales, rhonchi or wheezes Cardio regular rate, regular rhythm, S1 normal heart sound, S2 normal heart sound, no murmurs, no rub, no gallops and no clicks GI normal to inspection, nondistended, normoactive bowel sounds and soft to palpation Extremity Extremity Narrative: Large, expanding, area of ecchymosis in the left leg with bullous hematoma at the medial thigh consistent with previous measurements, tenderness around the area, no drainage or signs of infection, no significant edema, left lower extremity sensation is intact, pedal pulses are 2+ bilaterally Neuro oriented x3, CN's II-XII intact bilaterally, moves all extremities and no focal motor deficits Speech: speech normal Psych affect normal Psych Narrative: Very pleasant, appropriately interactive Mood & Affect: anxious Weight / BMI Weight Weight: 62.596 kg Body Mass Index (BMI) 25.2 ABG / Lab / Microbiology Data Result Diagrams: 08/07/22 05:35 08/07/22 05:35 Laboratory: Laboratory Results - last 24 hr 08/06/22 19:35: WBC 5.1, RBC 4.31, Hgb 13.7, Hct 41.5, MCV 96.3, MCH 31.8, MCHC 33.0, RDW Std Deviation 44.2 H, RDW Coeff of [place]alia 12.3, Plt Count 262, MPV 10.0, Immature Gran % (Auto) 0.200, Neut % (Auto) 51.9, Lymph % (Auto) 31.4, [place] % (Auto) 10.8 H, Eos % (Auto) 4.9, Baso % (Auto) 0.8, Absolute Neuts (auto) 2.6, Absolute Lymphs (auto) 1.60, Nucleated RBC % 0 08/06/22 19:35: PT 20.1 H, INR 1.7 08/06/22 19:35: Sodium 141, Potassium 3.4 L, Chloride 106, Carbon Dioxide 30.0, Anion Gap 5, BUN 17, Creatinine 0.83, Estim Creat Clear Calc 50.59, Est GFR (MDRD) Af Amer 87, Est GFR (MDRD) Non-Af 72, BUN/Creatinine Ratio 20.5 H, Glucose 99, Calcium 8.6, Total Bilirubin 0.40, AST 31, ALT 26, Alkaline Phosphatase 71, Total Protein 6.2 L, Albumin 3.6, Globulin 2.6, Albumin/Globulin Ratio 1.4 08/07/22 05:35: WBC 6.5, RBC 4.14 L, Hgb 13.2, Hct 40.2, MCV 97.1, MCH 31.9, MCHC 32.8, RDW Std Deviation 44.5 H, RDW Coeff of [place] 12.4, Plt Count 231, MPV 9.9, Immature Gran % (Auto) 0.300, Neut % (Auto) 62.1, Lymph % (Auto) 24.6, [place] % (Auto) 9.3, Eos % (Auto) 3.1, Baso % (Auto) 0.6, Absolute Neuts (auto) 4.0, Absolute Lymphs (auto) 1.59, Nucleated RBC % 0 08/07/22 05:35: PT 19.6 H, INR 1.7 08/07/22 05:35: Sodium 141, Potassium 3.4 L, Chloride 108 H, Carbon Dioxide 28.0, Anion Gap 5, BUN 18, Creatinine 0.71, Estim Creat Clear Calc 41.99, Est GFR (MDRD) Af Amer 105, Est GFR (MDRD) Non-Af 87, BUN/Creatinine Ratio 25.3 H, Glucose 102, Calcium 8.3 L Radiography Diagnostic Testing: Radiology Impression Knee X-Ray 08/06/22 18:15 IMPRESSION: A medial subcutaneous mass at the distal thigh, possibly a hematoma. Electronically Signed: Carl Trinidad DO at 18:31 EDT Reading Location ID and State: [facility] / [place] Tel [phone], Service support , Lower Extremity CT 08/06/22 19:15 IMPRESSION: There is a subdermal mass likely a hematoma in the distal thigh anteromedially. Electronically Signed: Carl Trinidad DO at 21:38 EDT Reading Location ID and State: [facility] / [place] Tel [phone], Service support , D/C Instructions Discharge Diet: No restrictions Discharge Activity: Return to Normal Activity (Keep leg elevated while seated and off work until follow-up with orthopedics) and May Shower Return to work on: 08/21/22 Meaningful Use Info Meaningful Use Diagnoses (Choose all that apply): None applicable Discharge Plan Admission Admit Date/Time: 08/07/22 00:03 Primary Reason for Your Visit: L LE hematoma Attending Provider: Alina Morales Primary Care Provider: Wilton Navas Chi Consulting Providers: Ted Fried Instructions Forms: Work Excuse Additional Instructions / Restrictions: 1. Orthopedic surgery has recommended to keep the knee in flexion and utilize an David wrap at home to accomplish this. 2. Continue ice 10 minutes on and 10 minutes off to decrease the pain and swelling 3. We will continue to hold your Coumadin until you follow-up with orthopedic surgery as an outpatient 4. Okay to bear weight on your left lower extremity as you tolerate 5. Recommend as much mobility as possible to avoid developing DVT with your history of DVT and currently requiring to be off anticoagulation 6. Please call Dr. Pruett's office on Wednesday for follow-up appointment to be seen within the next 2 weeks 7. Please take Tylenol 1000 mg 3 times daily until pain improves along with your medication prescribed by pain management 8. Elevate left lower extremity is much as possible while not up and around Discharge Orders/Prescriptions Prescriptions: New acetaminophen 500 mg Tablet 1,000 mg PO Q8 Qty: 0 0RF Continued estradiol 1 mg tablet 1 mg PO DAILY Rx Instructions: off 1 week; repeat cycle pregabalin [Lyrica] 100 MG capsule 75 mg PO TID Xtampza ER 13.5 mg cap,sprinkl,ER12hr(DONT CRUSH) 13.5 mg PO BID metoclopramide HCl 10 MG tablet 10 mg PO Q6H PRN (Reason: nausea and vomiting) Qty: 20 0RF amitriptyline 25 mg tablet 25 mg PO DAILY Held warfarin 2 mg tablet 2 mg PO DAILY Hold Instructions: Until seen by orthopedic surgery and follow-up Referrals / Follow Up: Filiberto Pruett MD [Med Staff - Active Staff] - Within 2 Weeks Wilton Navas Chi, MD [Primary Care Provider] - Within 1 Week Disposition Disposition (needs filled in before D/C Order can be placed): Home, Self Care Charges/Coding Visit Charges Inpatient E&M: 36549 Disch Hosp >30min
--- NOTE | 2022-08-07 15:31 | CASEMGMT ---
RN CM updated by therapy that patient does not need therapy at discharge. RN CM in to discuss discharge needs with patient. Patient and deny needs at discharge. Patient had no further questions or concerns at this time.
== END 2022-08-07 18:08 | disposition home or self-care (01) ==
LOC: ED 08-07 00:16 → PCU 08-07 01:28
PROVIDERS: Admitting Provider Hospitalist; Emergency Provider Student in an Organized Health Care Education/Training Program; PCP Family Medicine Geriatric Medicine; Visit Provider Internal Medicine
DX: S70.12XA Contusion of left thigh, initial encounter (principal); M06.9 Rheumatoid arthritis, unspecified; W22.8XXA Striking against or struck by other objects, initial encounter; Z79.01 Long term (current) use of anticoagulants; E78.00 Pure hypercholesterolemia, unspecified; K21.9 Gastro-esophageal reflux disease without esophagitis; M79.7 Fibromyalgia; R79.1 Abnormal coagulation profile; Z79.899 Other long term (current) drug therapy; Z86.718 Personal history of other venous thrombosis and embolism; S80.02XA Contusion of left knee, initial encounter; E87.6 Hypokalemia
CPT/HCPCS: 36415; 73564; 73700; 80048; 80053; 85025; 85610; 96374; 96375; 96376; 97161; 97165; 99221; 99284; A4216; G0378; J2405

== ENCOUNTER → 2022-08-10 | Outpatient (CLI) | payer MEDICARE, OTHER, SELFPAY ==
[2022-08-10 12:58] LABS: Absolute Lymphocyte Count 1.49 X10^3/uL (0.83-4.51); Absolute Neutrophil Count 3.2 X10^3/uL (2.0-7.7); Basophil# 0.04 X10^3/uL; Basophil% 0.7 % (0-1); Eosinophil# 0.17 X10^3/uL; Eosinophils% 3.1 % (0-5); Lymphocyte # 1.49 X10^3/ul (0.83-4.51); Lymphocyte % 27.3 % (19-41); Mean Corp Hgb Conc 33.3 g/dL (32-36); Mean Corpuscular Volume 96.1 fL (81-99); Mean Platelet Vol. 10.7 fl (6.2-12.0); Monocyte# 0.52 X10^3/uL; Monocyte% 9.5 % (0-10); NRBC Flagged by Analyzer 0 % (0-5); Neutrophil # 3.21 X10^3/uL (2.7-7.7); Platelet Count 271 K/mm3 (150-450); RBC Distribution Width CV 12.3 % (11.6-14.6); RBC Distribution Width SD 43.8 fl (35.1-43.9); Red Blood Count 4.06 M/mm3 (4.2-5.4); White Blood Count 5.5 K/mm3 (4.4-11.0)
== END | disposition home or self-care (01) ==
LOC: POLAB3 11:49
PROVIDERS: PCP Family Medicine Geriatric Medicine; Visit Provider Family Medicine Geriatric Medicine
DX: S80.02XA Contusion of left knee, initial encounter (principal); X58.XXXA Exposure to other specified factors, initial encounter
CPT/HCPCS: 36415; 85025

== ENCOUNTER 2022-08-12 15:18 | Observation (INO) | payer MEDICARE, OTHER, SELFPAY ==
[2022-08-12] VITALS (13 sets, daily range): BP systolic 109–136; BP diastolic 56–94; PULSE 53–103; RESP 16; TEMP 36.2–36.6; O2SAT 96–100; BMI 25.0
--- NOTE | 2022-08-12 | THRO_PTH ---
PATIENT: JOSÉ ZALDIVAR LOC: [facility] U#:[id number] AGE/SX: 67/F ROOM: [facility]/12/[address]: Dr. Robbie Donahue MD : [id number] BED: 1 DIS: 08/14/2022 SPEC #: [id number] RECD: 08/12/22 15:57 STATUS: ANDREEA REQ #: [id number] RADHA: 08/12/22 00:[address]: Robbie Donahue DEPT: SURGICAL PATHOLOGY RECD BY: Matty Carpenter ENTERED: 08/13/22 11:54 SP TYPE: THROMBUS OTHR DR: MD Dr. Wilton Tucker Chi, MD Tissues: BLOOD CLOT, NOS Procedures: Surgery Specimen Level III HEADER OPERATION: Surgical preparation distal medial thigh with I & D PRE-OP DIAGNOSIS: Traumatic hematoma left thigh; skin necrosis TISSUE SUBMITTED: Hematoma abscess and tissue left distal medial thigh MICROSCOPIC DIAGNOSIS Hematoma abscess tissue, left distal medial thigh, excision: Pieces of skin and adipose tissue with focal area of hemorrhage, clinically hematoma. MAKAYLA:pretty 08/14/2022 MICROSCOPIC DESCRIPTION Slides are reviewed. GROSS DESCRIPTION Received in fixative is one container labeled with the patient's name and designated hematoma abscess and tissue left distal medial thigh. The specimen consists of a piece of congested skin measuring 10.0 x 3.5 x 0.2 cm. Also present in the container is a piece of adipose tissue with focal area of congestion measuring 7.5 x 5.0 x 1.0 cm. Face Man sections are submitted in one cassette. / MAKAYLA:pretty 08/13/2022 TC:5 CPT: 32486
--- NOTE | 2022-08-12 10:01 | EKG12_ITS ---
Test Reason : PREOP Blood Pressure : / mmHG Vent. Rate : 056 BPM Atrial Rate : 056 BPM P-R Int : 176 ms QRS Dur : 084 ms QT Int : 456 ms P-R-T Axes : 069 014 040 degrees QTc Int : 440 ms Sinus bradycardia Otherwise normal ECG When compared with ECG of 15-JUL-2021 20:51, Vent. rate has decreased BY 62 BPM QRS axis Shifted right Confirmed by MANINDER CEBALLOS, JAMAAL ([id number]), continuity editor JASON CAIN ([id number]) on 08/13/2022 1:59:01 PM Referred By: Robbie Donahue Confirmed By:JAMAAL DICKENS MD
[2022-08-12 10:06] LABS: INR Fingerstick 1.1; Prothrombin Time Fingerstick 12.6 SEC (11.7-14.9)
[2022-08-12] MEDS: Lactated Ringers 1,000 ML 15 ML IV ×2 (10:33→14:38)
[2022-08-12] MEDS: levoFLOXacin IV 500 MG/100 ML BAG 100 MG IV (10:33)
[2022-08-12] MEDS: Lidocaine 1% /Epi 1:100 (20ml) 20 ML Vial (14:00)
--- NOTE | 2022-08-12 14:21 | OP.PCM_ITS ---
Problems Associated Problem List Diagnoses (1) Traumatic hematoma of left thigh: (2) Skin necrosis: (3) detention (current) use of anticoagulants: (4) History of deep vein thrombosis: (5) Long-term current use of tocilizumab: (6) Rheumatoid arthritis: (7) Open wound of left thigh: Report of Operation Date of Procedure: 08/12/22 Pre-Operative Diagnosis: 1. Traumatic hematoma left distal medial thigh with overlying skin necrosis. 2. intermodal customer service use of anticoagulants - Coumadin. 3. History of DVT. 4. detention use of tocilizumab (Actemra). 5. Rheumatoid arthritis. Post-Operative Diagnosis: 1. Traumatic hematoma left distal medial thigh with overlying skin necrosis. 2. intermodal customer service use of anticoagulants - Coumadin. 3. History of DVT. 4. intermodal customer service use of tocilizumab (Actemra). 5. Rheumatoid arthritis. 6. Open surgical hematoma wound left distal medial thigh. Surgery/Procedure Performed:: Surgical preparation left distal medial thigh with incision and drainage and evacuation traumatic hematoma with excisional debridement overlying skin necrosis (81 cm2). Description of Surgical Findings:: 67?year old woman who is on Coumadin for history of blood clots sustained a traumatic hematoma to her left distal medial thigh on , 08/06/22, when her left thigh hit the edge of a table at lunch.? She went to the ED.? Hgb was 13.7.? A left knee xray was done.? It showed a subcutaneous mass along the distal thigh medially measuring 8.5 x 3.4 cm.? No radiopaque foreign body.? No acute fracture or subluxation.. Normal alignment.? Preservation of the joint space.? No sclerotic or destructive changes observed.??A medial subcutaneous mass at the distal thigh, possibly a hematoma. ? Patient had a CT left lower extremity done. It showed osseous structures are normal without evidence of fracture or dislocation.? No lytic or blastic osseous masses.? There is a 6.8 x 8.1 x 6.8 cm subdermal mass along the anteromedial aspect of the distal thigh likely representing a hematoma.? .Mild adjacent subcutaneous edema. ? She was discharged the next day with ice to decrease swelling and an robert wrap for compression to help decrease the swelling.? The patient has had persistent pain during this time.? She saw Orthopedics yesterday, 08/10/22, and recommended to continue nonoperative therapy and to encourage range of motion exercises to minimize stiffness. She will be scheduled to go to [facility] for that PT.? Hgb yesterday, 08/10/22, was 13.0.? She was concerned that this hematoma was getting larger.? She comes in today for further evaluation and to discuss surgical options for treatment. Patient was informed of the risks and complications of the procedure including alternatives to surgery. These were discussed with the patient personally. Patient voices understanding and wishes to proceed. Some of the risks and complications were included in a form from the [employer]. Potential risks and complications included but not inclusive of bleeding, infection, hematoma, bruising, swelling loss of sensation to skin, wound breakdown, need for wound care, poor scarring, poor aesthetic outcome, intra operative cardiac or neurologic events, DVT, PE, and reaction to anesthesia. Size of hematoma wound left distal medial thigh - 9 x 9 x 3 cm. Surgeon: Robbie Donahue MD pool lifeguard: None Type of Anesthesia: General Anesthesiologist: Thor Rico MD and Norma Vaz CRNA Specimen's removed: Hematoma left distal medial thigh to Pathology and Microbiology. Drains: None. Estimated Blood Loss (mL): 150. Description of Procedure: Patient was taken to OR in supine position and was placed under general anesthesia. The left thigh was prepped and draped in the usual fashion. SCD's were placed for DVT prophylaxis. Perioperative antibiotics were given intravenously. Using xylocaine with epinephrine, the edges of the hematoma was infiltrated. After waiting 5 minutes for the anesthetic to take effect, I proceeded with surgical preparation of her left distal medial thigh using a scalpel in a circular fashion to include the whole hematoma and overlying skin necrosis. The hematoma was evacuated. Some fat necrosis was seen that was debrided and excised. The hematoma extended down to the quadriceps muscle. Some bruising of the muscle was noted. I dissected bluntly into the muscle where the bruised muscle was to make sure that the hematoma did not extend into the muscle and deep to the muscle. Some of the overlying muscular fascia was torn. The muscle underneath the torn fascia was pink and viable. Half the hematoma and soft tissue with necrotic skin was sent to Pathology for analysis to rule out carcinoma. Half the hematoma and soft tissue with necrotic skin was sent to Microbiology for culture. A positive culture will necessitate antibiotic therapy. The size of the hematoma wound defect after incision and drainage and excisional debridement was 9 x 9 x 3 cm or 81 cm2. The hematoma wound was irrigated with saline. Hemostasis was obtained with electrocautery. The hematoma wound was dressed with Mepitel nonadherent dressing followed by Kerlix gauze and Betadine. This was followed by dry Kerlix gauze and ABD pads followed by compression robert wrap. Patient tolerated the procedure well and was sent to PACU in satisfactory condition. Patient will be sent upstairs for continued postop care. The VAC will be placed tomorrow. After discharge, will followup at the Wound Center. In about a month, will plan on proceeding with further surgery to close the wound with a skin graft. She states that her work will not allow her to return to work until the wound has healed. If the cultures are positive, this may necessitate antibiotic modification. She is on Levaquin perioperatively. Grafts/Implants Used: None. Procedure Start Time: 13:55 Procedure Stop Time: 14:15 Complications None. Admit VTE Documentation VTE Present on Admission: No (Patient is on Coumadin for history of DVT.) VTE Mechan Device Prophylaxis: SCD's VTE Pharm Prophylaxis ordered?: Yes Addendum Addendum: Surgery Charges CPT - 08131 ICD-10 - S71.102A, S70.12xA, I96, Z79.01, Z86.718, Z79.899, M06.9 02796 S70.12xA, I96, Z79.01, Z86.718, Z79,899, M06.9, S71.102A
--- NOTE | 2022-08-12 16:53 | PCM.PROGNOTE ---
Subjective Subjective Patient is a 67-year-old female with a past medical history as outlined was admitted to the service of plastic surgery for debridement of the left thigh with hematoma evacuation and placement of wound VAC. Hospitalist service was consulted for medical management. Patient was seen postop. She had no active complaints. Pain was well controlled. Review of symptoms otherwise negative. She has remained hemodynamically stable. Objective Data Objective Data Vital Signs: Vital Signs Temp Pulse Resp BP Pulse Ox O2 Del Method O2 Flow Rate 97.9 F 82 16 109/62 100 Nasal Cannula 2 08/12/22 16:01 08/12/22 16:01 08/12/22 16:01 08/12/22 16:01 08/12/22 16:01 08/12/22 16:01 08/12/22 16:01 Oxygen Flow Rate (L/min) 2 Oxygen Delivery Method Nasal Cannula Weight: 136 lb 10.986 oz Body Mass Index (BMI) 25.0 Intake & Output: Intake and Output for Last 24 Hours 08/10/22 08/11/22 08/12/22 23:59 23:59 23:59 Intake Total 1100 / 1100 Output Total 350 / 350 Balance 750 / 750 Lab / Micro Data Result Diagrams: 08/14/22 05:23 08/13/22 05:43 Labs: Laboratory Results - last 24 hr 08/12/22 10:02: POC PT 12.6, INR 1.1 Physical Exam Const alert, oriented x3 and no apparent distress General Appearance: cooperative HEENT normocephalic, head/scalp atraumatic, moist oral mucous membranes and oropharynx normal Eyes PERRL and EOMs intact bilaterally Neck no lymphadenopathy and supple Lymph Lymphatic: no lymphadenopathy noted Resp normal respiratory effort, normal air movement and clear to auscultation bilaterally Cardio regular rate, regular rhythm, S1 normal heart sound, S2 normal heart sound and no murmurs GI normal to inspection, nondistended, normoactive bowel sounds, soft to palpation, non-tender and non-distended Extremity Extremity Narrative: wound vac over surgical site on left thigh Skin Skin Narrative: as under extremity Neuro CN's II-XII intact bilaterally, no focal motor deficits and no sensory deficits noted Motor Exam: strength 5/5 throughout Psych thought process normal Assessment & Plan Assessment/Plan (1) 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 PT/OT consult incentive spirometry fall precautions #History of DVT on coumadin, which is currently on hold as she had surgery. To resume when ok with plastic surgery INR today is 1.1 #Rheumatoid arthritis: on Tocilizumab q4hrly infusions DVT prophylaxis: as per primary team Thank you for the courtesy of the consult. We will continue to follow with you. Charges/Coding Visit Charges Inpatient E&M: 73488 Subs Hosp L2
[2022-08-12] MEDS: Juven (unflavored) Packet 1 PACKET PO (16:54)
[2022-08-12] MEDS: Acetaminophen 500 MG Tablet 1000 MG PO (21:49)
[2022-08-12] MEDS: oxyCODONE HCl Cr 10 MG Tablet PO (21:49)
[2022-08-12] MEDS: Docusate Sodium 100 MG Capsule PO (21:49)
[2022-08-12] MEDS: Pregabalin 75 MG Capsule PO (21:50)
[2022-08-12] MEDS: Amitriptyline 25 MG Tablet PO (21:57)
[2022-08-12] MEDS: Heparin Injection (Vial) 5,000 UNIT/ML VIAL 5000 UNIT SC (21:57)
[2022-08-12] MEDS: Ondansetron 4 MG/2 ML Vial IV (22:07)
[2022-08-13 02:30] VITALS: BP 96/52; PULSE 68; RESP 16; TEMP 36.5; O2SAT 97
[2022-08-13] MEDS: oxyCODONE 5 MG Tablet 10 MG PO ×3 (04:53→16:14)
[2022-08-13 06:15] LABS: Hematocrit 34.1 % (37-47); Hemoglobin 11.4 g/dL (12.0-15.0); Mean Corp Hgb Conc 33.4 g/dL (32-36); Mean Corpuscular Hgb 32.2 pg (27.0-32.0); Mean Corpuscular Volume 96.3 fL (81-99); Mean Platelet Vol. 10.1 fl (6.2-12.0); Platelet Count 247 K/mm3 (150-450); RBC Distribution Width CV 12.1 % (11.6-14.6); RBC Distribution Width SD 42.5 fl (35.1-43.9); Red Blood Count 3.54 M/mm3 (4.2-5.4); White Blood Count 7.5 K/mm3 (4.4-11.0)
[2022-08-13 06:41] LABS: International Normalized Ratio 1.2; Prothrombin Time (Protime)PT. 14.7 SECONDS (11.7-14.9)
[2022-08-13 06:50] LABS: Anion Gap 6 (5-15); BUN 13 mg/dL (7-18); BUN/Creat Ratio 15.3 RATIO (10-20); Calcium,Total 7.4 mg/dL (8.5-10.1); Chloride 107 mmol/L (98-107); Creatinine, Serum 0.85 mg/dL (0.55-1.02); EST Glomerular Filtration Rate 71 mL/min (>60); Est Glom Filt Rate - Afr Amer 85 mL/min (>60); Glucose 141 mg/dL (74-106); Potassium 3.5 mmol/L (3.5-5.1); Sodium Level 140 mmol/L (136-145)
[2022-08-13] MEDS: Acetaminophen 500 MG Tablet 1000 MG PO ×3 (07:43→20:52)
[2022-08-13] MEDS: Pregabalin 75 MG Capsule PO ×3 (07:43→20:51)
[2022-08-13 08:55] VITALS: BP 110/57; PULSE 60; RESP 18; TEMP 36.6; O2SAT 99
--- NOTE | 2022-08-13 08:59 | PCM.PN.HOSP ---
Subjective Subjective Doing well, no issues overnight. Awaiting to have wound VAC placed however she was eating breakfast this morning. Objective Data Objective Data Vital Signs: Vital Signs Temp Pulse Resp BP Pulse Ox O2 Del Method O2 Flow Rate 97.8 F 60 18 110/57 L 99 Room Air 2 08/13/22 08:55 08/13/22 08:55 08/13/22 08:55 08/13/22 08:55 08/13/22 08:55 08/13/22 08:55 08/12/22 20:30 Oxygen Flow Rate (L/min) 2 Oxygen Delivery Method Room Air Weight: 136 lb 10.986 oz Body Mass Index (BMI) 25.0 Intake & Output: Intake and Output for Last 24 Hours 08/12/22 08/13/22 08/14/22 03:59 03:59 03:59 Intake Total 1100 / 1100 Output Total 700 / 700 450 / 450 Balance 400 / 400 -450 / -450 Lab / Micro Data Result Diagrams: 08/13/22 05:43 08/13/22 05:43 Labs: Laboratory Results - last 24 hr 08/12/22 10:02: POC PT 12.6, INR 1.1 08/13/22 05:43: WBC 7.5, RBC 3.54 L, Hgb 11.4 L, Hct 34.1 L, MCV 96.3, MCH 32.2 H, MCHC 33.4, RDW Std Deviation 42.5, RDW Coeff of Idalia 12.1, Plt Count 247, MPV 10.1 08/13/22 05:43: PT 14.7, INR 1.2 08/13/22 05:43: Sodium 140, Potassium 3.5, Chloride 107, Carbon Dioxide 27.0, Anion Gap 6, BUN 13, Creatinine 0.85, Estim Creat Clear Calc 49.40, Est GFR (MDRD) Af Amer 85, Est GFR (MDRD) Non-Af 71, BUN/Creatinine Ratio 15.3, Glucose 141 H, Calcium 7.4 L, Prealbumin 27.0 Physical Exam Narrative General: Alert, Oriented x3, Cooperative, No apparent distress HEENT: Atraumatic, PERRLA, EOMI, Normocephalic Oral: Moist Mucosa Neck: Supple, No JVD Lungs: Diminished, Normal air movement, No rhonchi, No wheeze, No rales Cardiovascular: Regular rate, Regular Rhythm, Normal S1, Normal S2, No murmurs Abdomen: Soft, Non Tender, Non-Distended, No Hepato-splenomegaly Extremities: No edema, Capillary Refill Less than 3 Seconds Skin: No rashes, No breakdown Musculoskeletal: Wound VAC in her left thigh Neurological: Cranial nerves II-XII grossly intact, Motor Exam 5/5 strength throughout, Sensory exam intact to light touch and pain Psych/Mental Status: Normal Affect, Appropriate Assessment & Plan Assessment/Plan (1) 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 Left thigh hematoma status postdebridement 08/12/2022 ? Will change wound VAC today ? She is okay to restart Coumadin at the discretion of plastic surgery ? She is a medically clear for discharge, she did have a little bit of a drop in her hemoglobin this is to be expected with a hematoma and surgery however she is asymptomatic 2. History of DVT ? She is on Coumadin for this INR today is 1.2 ? Can resume her Coumadin wanted to okay with plastic surgery no need to bridge which she will need to follow-up as an outpatient with her PCP to obtain INR monitoring 3. Rheumatoid arthritis ? Stable ? Can resume her home IV therapy every 4 weeks on discharge DVT: Per primary We will sign off please call with any questions Charges/Coding Visit Charges Inpatient E&M: 11122 Subs Hosp L2
[2022-08-13] MEDS: Heparin Injection (Vial) 5,000 UNIT/ML VIAL 5000 UNIT SC ×2 (09:06→20:51)
[2022-08-13] MEDS: Juven (unflavored) Packet 1 PACKET PO ×2 (09:06→16:14)
[2022-08-13] MEDS: levoFLOXacin IV 500 MG/100 ML BAG 100 MG IV (09:06)
[2022-08-13] MEDS: Docusate Sodium 100 MG Capsule PO ×2 (09:06→20:52)
[2022-08-13] MEDS: Estradiol 1 MG Tablet PO (09:07)
[2022-08-13] MEDS: 0.9% Saline Lock 10 ML Syringe IV ×2 (09:16→18:11)
--- NOTE | 2022-08-13 09:41 | WOUNDNOTE ---
wound photo: left medial thigh
[2022-08-13] MEDS: oxyCODONE HCl Cr 10 MG Tablet PO ×2 (10:42→20:51)
--- NOTE | 2022-08-13 10:58 | CASEMGMT ---
Addendum entered by Itzel Campo 08/13/22 16:29: [facility] will see pt on Wednesday. Addendum entered by Itzel Campo 08/13/22 16:26: Spoke with who states that pt will dc tomorrow. States pt can see the [facility] once a week. SHERON BECK into pt room, she is aware of the appt with on Wednesday and she would like her [facility] appt on this day also. TC to [facility], left message with felt hat mellowing machine operator requesting appt after 's appt approx 10am. Will await returned call. Addendum entered by Itzel Campo 08/13/22 15:58: Received tc back from Monica at 's office who states he will follow the [facility] in the meantime but pt needs an appt on wednesday. Set up appt for 9:20am on Wednesday. Placed on dc instructions. Updated Noemy at [facility]. Addendum entered by Itzel Campo 08/13/22 15:53: SHERON BECK made aware that [facility] will not accept pt until she has an appt with prior to their start of care. They also need pt to be seen at 's office once a week or at the [facility] weekly prior to acceptance. TC to 's office, spoke with Monica, pt was seen this week in the office and asked if he would follow [facility] should the pt not dc today and not until tomorrow as she would need a wound vac car changer the weekend. Their office closes at noon tomorrow. Monica to speak with and notify this SHERON BECK back. Original Note: SHERON BECK Assessment: Face to Face with pt for initial transition planning/care coordination assessment. SHERON BECK introduced self and role at [facility], pt voices understanding and consents to assessment. Pt is A/O x4 and answers all questions appropriately at this time. Pt lying in bed in no distress. Care providers, pharmacy, and demographics verified/updated. Admitting Dx: evacuation of hematoma PCP:Yosef Specialists:Rowan, OR; Brendon, pain mgmt; Rheum in [place] Preferred Pharmacy: [facility] Retail Insurance: [facility], MMO Prescription Benefit: yes LNOK: Romain Ervin, ; Logan Cantu, son Living Arrangements: Pt lives with in a single story home with 2 steps to enter with a rail. Pt reports she is I in ADL's and denies concerns at home. Pt does state that she is having some concern about dc'ing with the wound vac. Transportation: Pt drives self and denies concerns with transportation. Pt is able to transport pt until she can medically drive again. DME/HHC/SNF: Pt has a walker and shower chair at home. Pt typically does not use AD. Pt denies hx of HHC or SNF stays. Discussed with pt having HHC for her wound vac changes and the expectations of HHC. Pt then states that she feels more comfortable with the wound vac after this discussion. Patient was provided a list of HHC providers including quality and resource use data and consistent with the patient?s preferred geographic region, medical needs, and insurance network were provided from the [employer] Guide. Pt to review with her and RN CM will check back with her on her choices. Pt states no further concerns/needs. CM to follow. Advised pt to ask CM if any further question/concerns/needs arise, voices understanding. Pt Goal: Home with HHC Plan: Home with HHC
--- NOTE | 2022-08-13 11:03 | CASEMGMT ---
SHERON CM in to discuss MOREL form with patient. RN CM explained MOREL form, patient voiced understanding. Pt signed form and filed in chart. Pt provided with a copy of signed MOREL form. Patient had no further questions or concerns at this time.
--- NOTE | 2022-08-13 14:15 | CASEMGMT ---
Discharge Planning Referral made to [facility] for SN to manage wound vac. Nubia Shine
[2022-08-13 14:18] VITALS: BP 128/67; PULSE 68; RESP 18; TEMP 36.6; O2SAT 100
--- NOTE | 2022-08-13 14:40 | WOUNDNOTE ---
Home VAC is approved.
[2022-08-13] MEDS: Ondansetron 4 MG/2 ML Vial IV (18:11)
[2022-08-13 19:55] VITALS: BP 109/53; PULSE 69; RESP 16; TEMP 36.6; O2SAT 96
[2022-08-13] MEDS: Amitriptyline 25 MG Tablet PO (20:52)
--- NOTE | 2022-08-13 21:13 | PCM.PN.SRG ---
Subjective Subjective Postop #1 She has pain in the wound area. VAC applied today. She is a little unsteady on her feet with ambulation. Objective Data Objective Data Vital Signs: Vital Signs Temp Pulse Resp BP Pulse Ox O2 Del Method O2 Flow Rate 97.9 F 69 16 109/53 L 96 Room Air 2 08/13/22 19:55 08/13/22 19:55 08/13/22 19:55 08/13/22 19:55 08/13/22 19:55 08/13/22 19:55 08/12/22 20:30 Oxygen Flow Rate (L/min) 2 Oxygen Delivery Method Room Air Weight: 136 lb 10.986 oz Body Mass Index (BMI) 25.0 Intake & Output: Intake and Output for Last 24 Hours 08/11/22 08/12/22 08/13/22 23:59 23:59 23:59 Intake Total 1100 / 1100 371.75 / 371.75 Output Total 700 / 700 450 / 450 Balance 400 / 400 -78.25 / -78.25 Prealbumin was 27.0. Encourage nutritional supplementation with protein to help the healing process. Lab / Micro Data Attestation: I reviewed the patient's lab results. Result Diagrams: 08/14/22 05:23 08/13/22 05:43 Labs: Laboratory Results - last 24 hr 08/13/22 05:43: WBC 7.5, RBC 3.54 L, Hgb 11.4 L, Hct 34.1 L, MCV 96.3, MCH 32.2 H, MCHC 33.4, RDW Std Deviation 42.5, RDW Coeff of Idalia 12.1, Plt Count 247, MPV 10.1 08/13/22 05:43: PT 14.7, INR 1.2 08/13/22 05:43: Sodium 140, Potassium 3.5, Chloride 107, Carbon Dioxide 27.0, Anion Gap 6, BUN 13, Creatinine 0.85, Estim Creat Clear Calc 49.40, Est GFR (MDRD) Af Amer 85, Est GFR (MDRD) Non-Af 71, BUN/Creatinine Ratio 15.3, Glucose 141 H, Calcium 7.4 L, Prealbumin 27.0 Micro: Microbiology 08/12/22 14:04 Wound Drainage - Leg Gram Stain - Final 08/12/22 14:04 Wound Drainage - Leg Wound Culture - Preliminary No growth-Final to follow Pathology - pending. Physical Exam Narrative General - Alert and Oriented HEENT - PERRL. EOMI. Neck - Supple and nontender. Abdomen - Soft and nondistended. Extremities - FROM. left distal medial thigh hematoma wound is stable. No active bleeding seen. VAC in place. Minimal drainage in the canister. Neuro - CN II-XII grossly intact. Psych - Normal mood and affect. 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 No active bleeding. VAC applied. Tolerated reasonably well. Operative culture negative thus far. Was treated with Levaquin perioperatively. Hgb 11.4. Stable after hematoma surgery. Prealbumin was 27.0. Encourage nutritional supplementation with protein to help the healing process. She has wound pain and muscle spasm from the VAC. Will add Valium and wean the narcotics to po in preparation for discharge. Still unsteady on her feet with ambulation. Would like to see her more steady before discharge. Anticipate discharge tomorrow. Followup at Wound Center next week.
[2022-08-13] MEDS: diazePAM 5 MG Tablet PO (22:34)
[2022-08-14 03:21] VITALS: BP 94/53; PULSE 55; RESP 16; TEMP 36.8; O2SAT 98
[2022-08-14] MEDS: Pregabalin 75 MG Capsule PO ×2 (05:24→13:56)
[2022-08-14] MEDS: Acetaminophen 500 MG Tablet 1000 MG PO ×2 (05:24→13:56)
[2022-08-14 06:18] LABS: Absolute Lymphocyte Count 2.48 X10^3/uL (0.83-4.51); Absolute Neutrophil Count 1.5 X10^3/uL (2.0-7.7); Basophil# 0.03 X10^3/uL; Basophil% 0.6 % (0-1); Eosinophil# 0.22 X10^3/uL; Eosinophils% 4.6 % (0-5); Hematocrit 33.3 % (37-47); Lymphocyte # 2.48 X10^3/ul (0.83-4.51); Mean Corpuscular Hgb 32.5 pg (27.0-32.0); Mean Corpuscular Volume 98.5 fL (81-99); Mean Platelet Vol. 10.4 fl (6.2-12.0); Monocyte# 0.48 X10^3/uL; Monocyte% 10.1 % (0-10); NRBC Flagged by Analyzer 0 % (0-5); Neutrophil # 1.54 X10^3/uL (2.7-7.7); Neutrophil % 32.3 % (47-70); Platelet Count 228 K/mm3 (150-450); RBC Distribution Width CV 12.7 % (11.6-14.6); RBC Distribution Width SD 45.5 fl (35.1-43.9); Red Blood Count 3.38 M/mm3 (4.2-5.4); White Blood Count 4.8 K/mm3 (4.4-11.0)
[2022-08-14 08:25] VITALS: BP 118/62; PULSE 55; RESP 18; TEMP 36.7; O2SAT 99
[2022-08-14] MEDS: oxyCODONE HCl Cr 10 MG Tablet PO (08:31)
[2022-08-14] MEDS: Heparin Injection (Vial) 5,000 UNIT/ML VIAL 5000 UNIT SC (08:31)
[2022-08-14] MEDS: Docusate Sodium 100 MG Capsule PO (08:31)
[2022-08-14] MEDS: Estradiol 1 MG Tablet PO (08:32)
[2022-08-14] MEDS: Juven (unflavored) Packet 1 PACKET PO (08:32)
--- NOTE | 2022-08-14 09:03 | CASEMGMT ---
Addendum entered by Itzel Campo 08/14/22 10:53: SHERON BECK into pt room, pt aware of appointment with and the [facility]. Pt has a walker at home. She is aware that PT is added to the [facility] orders. Pt denies any further homegoing needs. Provided her with SHERON BECK card per her request. Addendum entered by Itzel Campo 08/14/22 09:57: Spoke with therapy, added PT to [facility] orders. Updated Noemy. Original Note: Spoke with Vee at the [facility], pt has an appt at 11am on Wednesday. If she finishes at 's office before then, she may go to the wound center and they will see her sooner.
[2022-08-14] MEDS: 0.9% Saline Lock 10 ML Syringe IV (09:04)
[2022-08-14] MEDS: levoFLOXacin IV 500 MG/100 ML BAG 100 MG IV (09:04)
--- NOTE | 2022-08-14 12:54 | PCM.DC ---
Discharge Instructions Diet Discharge Diet: No restrictions and - (encourage nutritional supplementation with protein to help the healing process.) Activity Discharge Activity: - (keep left leg elevated when sitting) May shower in (days): 1 (wear plastic bag over left leg when showering.) May resume sexual activity in: 10-14 days Weight Bearing Status: Weight bearing as tolerated Keep extremity elevated above heart level: Left Leg Additional Activity Instructions:: Home Health to assist with the VAC at 150 mmHg continuous suction 3x per week. Dressing / Incision Call your doctor if your incision/area has: Continuous Slow Oozing, Sudden Increased Bleeding, Increased Pain/ Swelling, Increased Redness, Foul Smelling Discharge and Swelling at the incision site Call your doctor if you observe: Fever of 101 or Higher, Coldness, Increased Pain, Shortness of breath, Chest pain, Calf discomfort and Uncontrolled pain Change Dressing in: 2 days (VAC changes 3x per week) Cleanse incision/area with: Keep Dressing Clean & Dry and - (place plastic bag over left leg when showering.) Follow Up Care Please Follow Up With: Robbie Donahue MD When: wednesday08/17/22 at the wound center. call [phone]. Test Results: Test results from this visit will be discussed in further detail at your follow-up appointment, if applicable. Discharge Plan Admission Admit Date/Time: 08/12/22 15:18 Primary Reason for Your Visit: Incision and drainage and evacuation hematoma left thigh Attending Provider: Robbie Donahue Primary Care Provider: Wilton Navas Chi Consulting Providers: José Miguel Goody Discharge Orders/Prescriptions Prescriptions: No Action estradiol 1 mg tablet 1 mg PO DAILY Rx Instructions: off 1 week; repeat cycle warfarin 2 mg tablet 2 mg PO DAILY Hold Instructions: Until seen by orthopedic surgery and follow-up pregabalin [Lyrica] 100 MG capsule 75 mg PO TID Xtampza ER 13.5 mg cap,sprinkl,ER12hr(DONT CRUSH) 9 mg PO BID amitriptyline 25 mg tablet 25 mg PO QHS acetaminophen 500 mg Tablet 1,000 mg PO Q8 Qty: 0 0RF Actemra 200 mg/10 mL (20 mg/mL) Solution 200 mg IV .[id number] Referrals / Follow Up: Wilton Navas Chi, MD [Primary Care Provider] - 08/17/22 9:[address] Coughlin NP, MANUFACTURING ASSEMBLER-C [Med Staff - Adv Practice Prof] - 08/17/22 11:00 am (If you get finished at 's office before 11am, you may go to the wound center and they will see you sooner. ) Disposition Disposition (needs filled in before D/C Order can be placed): Home Health Service
--- NOTE | 2022-08-14 13:26 | WOUNDNOTE ---
Pt switched over to her home VAC. reviewed alarms, etc. with patient. Pt is aware she is to take a dressing to the wound center appt. no further questions at this time.
[2022-08-14 13:55] VITALS: BP 119/60; PULSE 57; RESP 18; TEMP 36.7; O2SAT 98
[2022-08-14] MEDS: diazePAM 5 MG Tablet PO (13:56)
--- NOTE | 2022-08-14 15:21 | PHA.DC.MR ---
Pharmacy Service has performed discharge medication reconciliation for this patient. The patient's discharge medication list was reviewed for discrepancies and discrepancies were resolved. Medication education papers prepared, patient d/c'ed before I was able to disability counselor. Home Medications pregabalin 100 mg capsule (Lyrica) 75 mg PO TID pain 06/08/13 oxycodone myristate 13.5 mg capsule sprinkle extend release 12hr(DON'T CRUSH) (Xtampza ER) 9 mg PO BID pain 09/12/20 estradiol 1 mg tablet 1 mg PO DAILY hormones 12/23/20 warfarin 2 mg tablet 2 mg PO DAILY blood thinner 12/23/20 amitriptyline 25 mg tablet 25 mg PO QHS mental health 08/06/22 acetaminophen 500 mg tablet 1,000 mg PO Q8 #0 tabs 08/07/22 tocilizumab 200 mg/10 mL (20 mg/mL) intravenous solution (Actemra) 200 mg IV .[id number] 08/11/22 L.acidophil,salivari-Bifido bifidum-Strep thermoph 175 mg capsule (Acidophilus Probiotic Blend) 1 cap PO DAILY 30 days #30 caps 08/14/22 levofloxacin 750 mg tablet 750 mg PO DAILY 14 days #14 tabs 08/14/22 oxycodone-acetaminophen 5 mg-325 mg tablet (Percocet) 1 tab PO Q6H PRN pain (scale score 7-10) 7 days #28 tabs 08/14/22
== END 2022-08-14 14:30 | disposition home health service (06) ==
LOC: SDC 15:59 → MS3 15:59
PROVIDERS: Family Medicine; Admitting Provider Surgery; PCP Family Medicine Geriatric Medicine; Referring Provider Surgery; Visit Provider Surgery
PROC: (CPT 15002; principal; 2022-08-12 11:55)
DX: S70.12XA Contusion of left thigh, initial encounter (principal); I96 Gangrene, not elsewhere classified; M06.9 Rheumatoid arthritis, unspecified; M34.9 Systemic sclerosis, unspecified; Z79.01 Long term (current) use of anticoagulants; Z79.899 Other long term (current) drug therapy; M79.7 Fibromyalgia; K21.9 Gastro-esophageal reflux disease without esophagitis; E78.00 Pure hypercholesterolemia, unspecified; Z86.718 Personal history of other venous thrombosis and embolism
CPT/HCPCS: 15002; 27301; 00400; 36415; 36416; 80048; 84134; 85025; 85027; 85610; 87070; 87075; 87102; 87205; 87206; 88304; 93005; 94668; 96365; 96366; 96372; 96375; 96376; 97162; 97166; 99221; 99252; J7050; J7120; A4216; G0378; G0463; J2405

== ENCOUNTER → 2022-08-17 | Outpatient (CLI) | payer MEDICARE, OTHER, SELFPAY ==
[2022-08-17 13:32] LABS: Absolute Lymphocyte Count 1.64 X10^3/uL (0.83-4.51); Absolute Neutrophil Count 2.3 X10^3/uL (2.0-7.7); Basophil# 0.02 X10^3/uL; Basophil% 0.4 % (0-1); Eosinophil# 0.25 X10^3/uL; Eosinophils% 5.4 % (0-5); Hematocrit 39.7 % (37-47); Hemoglobin 12.8 g/dL (12.0-15.0); Lymphocyte # 1.64 X10^3/ul (0.83-4.51); Lymphocyte % 35.3 % (19-41); Mean Corp Hgb Conc 32.2 g/dL (32-36); Mean Corpuscular Hgb 32.1 pg (27.0-32.0); Mean Corpuscular Volume 99.5 fL (81-99); Mean Platelet Vol. 10.7 fl (6.2-12.0); Monocyte# 0.43 X10^3/uL; Monocyte% 9.2 % (0-10); NRBC Flagged by Analyzer 0 % (0-5); Neutrophil # 2.28 X10^3/uL (2.7-7.7); Neutrophil % 49.1 % (47-70); Platelet Count 294 K/mm3 (150-450); RBC Distribution Width CV 12.7 % (11.6-14.6); RBC Distribution Width SD 45.8 fl (35.1-43.9); Red Blood Count 3.99 M/mm3 (4.2-5.4); White Blood Count 4.7 K/mm3 (4.4-11.0)
== END | disposition home or self-care (01) ==
LOC: MRI 09:43
PROVIDERS: PCP Family Medicine Geriatric Medicine; Visit Provider Family Medicine Geriatric Medicine
DX: M25.562 Pain in left knee (principal); I82.409 Acute embolism and thrombosis of unspecified deep veins of unspecified lower extremity
CPT/HCPCS: 36415; 85025

== ENCOUNTER 2022-08-20 13:08 | Outpatient (RCR) | payer MEDICARE, OTHER, SELFPAY ==
[2022-08-20 13:29] VITALS: BP 151/67; PULSE 70; RESP 20; TEMP 36.2
--- NOTE | 2022-08-20 19:44 | PCM.WC.PN ---
History of Present Illness Date of Service: 08/20/22 Chief Complaint: Open surgical hematoma wound left distal medial thigh. History of Wound: 67 year old woman who is on Coumadin for history of blood clots sustained a traumatic hematoma to her left distal medial thigh on , 08/06/22, when her left thigh hit the edge of a table at lunch. Despite robert wrap compression and ice packs over the next several days, the hematoma continued to increase in size which put pressure on the overlying skin that turned necrotic. She went to surgery on 08/12/22 where she underwent surgical preparation left distal medial thigh with incision and drainage and evacuation traumatic hematoma with excisional debridement overlying skin necrosis (81 cm2). Wound care has been with the VAC at 150 mmHg continuous suction 3x per week. Operative culture - negative. Pathololgy - Pieces of skin and adipose tissue with focal area of hemorrhage, clinically hematoma. CT Left lower extremity - 08/06/22 - There is a subdermal mass likely a hematoma in the distal thigh anteromedially. Prealbumin from 08/13/22 was 27.0. Encourage nutritional supplementation with protein to help the healing process. Today she denies fever. She is having a lot of pain with the dressing change. Progress of Wound: Recent surgery on 08/12/22. Objective Data Objective Data Vital Signs: Vital Signs Temp Pulse Resp BP 97.1 F L 70 20 H 151/67 H 08/20/22 13:29 08/20/22 13:29 08/20/22 13:29 08/20/22 13:29 Charges/Coding Addendum Addendum: Wound Care Visit CPT - 42123 ICD-10 - S71.102A, S70.12xA, I96, Z79.01, Z86.718, Z78.899, M06.9 Debridement Note Debridement Note Wound debrided: #1 Left distal medial thigh. Laterality: Left Wound Grade/Stage: 3. Type of Debridement: Excisional debridement Anesthesia Used: 4% Lidocaine Solution Depth: Down to and including healthy tissue, in the subcutaneous layer and to muscle Percentage of wound debrided: 100 Instrument Used: 5mm curette Tissue Removed: subcutaneous tissue and muscle. Severity: Fat Layer Exposed (muscle is exposed.) Amount of bleeding with debridement: Mild Bleeding Controlled with: Pressure and Compression and gauze Patient tolerated procedure: Patient did not tolerate procedure well (she had a lot of pain with the debridement.) Post-Debridement Measurements and Additional Note: Post-Debridement Measurements/Treatment WC - Nurse 1 - General Ulcer Assessment Start: 08/20/22 13:29 Freq: Status: Active Protocol: LILIYA Activity Type Activity Date Activity User E-sign Co-sign Detail Recorded Client Recorded Date Recorded By Document 08/20/22 13:29 DL [id number] 08/20/22 13:46 DL 08/20/22 13:29 WC - Today's Visit Information Type of service Initial Visit Arrival Mode Wheelchair Transfer Assistance Manual Transfer Assist (Other) x2 Patient Identification Verified (Name & Yes ) Patient Requires Transmission-Based No Precautions Safety Precautions NA Vital Signs Temperature (97.8 F-99.1 F) 97.1 F L Temperature Source Temporal Pulse Rate (60-100) 70 Pulse Location Monitor Respiratory Rate (12-18) 20 H Respiratory rate source Observation Blood Pressure (90/60-120/80) 151/67 H Blood Pressure Mean (mm Hg) 95 Source Monitor Pain Scale: 0-10 Numeric Is Patient Pain Free? No L Knee -Description Throbbing, Burning -Intensity 8 -Pain Behavior Moaning, Guarding, Withdrawal from Touch -Pain Aggravating Factors ADL's,Standing -Alleviating Factors/Interventions Medication -Comments Pain Medication not working per Patient. MYRA - Nurse 1 - General Ulcer Measurement Start: 08/20/22 13:29 Freq: Status: Active Protocol: Activity Type Activity Date Activity User E-sign Co-sign Detail Recorded Client Recorded Date Recorded By Document 08/20/22 13:29 [id number] 08/20/22 13:46 DL 08/20/22 13:29 Wound Center Nurse 1 #1 Left distal medial thigh -Combined with other wound No -Current Size (cm) - Length 9.5 -Current Size (cm) - Width 8.2 -Current Size (cm) - Depth 2.3 -Total Square Cm 77.90 -Date of Last Picture (Recall this 08/20/22 field) -Photo Taken Yes -Epithelialization None Present -Tunneling No -Undermining/Tunneling No -Circular Undermining No -Exudate Amt Large -Exudate Type Serosanguineous -Wound Margin Distinct, Outline Attached -Granulation Amt Large (67-100%) -Granulation Quality Red -Slough/Fibrin Yes -Necrosis Amt Small (1-33%) -Necrotic Tissue Type Eschar -Texture (Jannet-wound Skin Appearance) Assessed, Scarring -Moisture (Jannet-wound Skin Appearance) Assessed -Color (Jannet-wound Skin Appearance) Assessed -Temperature (Jannet-wound Skin No Abnormality Appearance) (Pt Warm) -Tenderness on Palpation (Jannet-wound Yes Skin Appearance) -Ulcer Cleansing Soap and Water -Foul Odor after Cleansing No -Anesthetic Used 4% Lidocaine Solution MYRA - Nurse 2 - General Ulcer CM Notes Start: 08/20/22 13:29 Freq: Status: Active Protocol: Activity Type Activity Date Activity User E-sign Co-sign Detail Recorded Client Recorded Date Recorded By Document 08/20/22 13:59 WENCESLAO [id number] 08/20/22 14:02 WENCESLAO 08/20/22 13:59 Wound Center Nurse 2 -Time 14:00 -Correct Patient Yes -Correct Side, Site, Position Yes -Correct Procedure Yes -Procedure Performed Yes -Type of Procedure Debridement -Clinical Debridement Muscle / Fascia -Tissue Removed Muscle,Fascia -Post Debridement (cm) - Length 9.6 -Post Debridement (cm) - Width 8.2 -Post Debridement (cm) - Depth 2.4 -Total Square (Post) (cm) 78.72 -Area of Debridement (cm) - Length 9.6 -Area of Debridement (cm) - Width 8.2 -Total Square (Area) (cm) 78.72 -Tunneling No -Undermining/Tunneling No -Circular Undermining No -Wound/Ulcer Outcome Not Healed -Ulcer Cleansing Rinsed/ Irrigated with Saline -Foul Odor after Cleansing No -Bioengineered Tissue No -Bleeding Controlled with Pressure -Treatment Response Procedure Tolerated Well -Offloading No -Debridement - Muscle / Fascia, 1st Yes 20sq cm -Debridement, Muscle/Fascia, ea addt'l 3 20sq cm or part thereof Pain Scale: 0-10 Numeric Is Patient Pain Free? Yes MYRA - Nurse 3 - General Ulcer D/C NN Start: 08/20/22 13:29 Freq: Status: Active Protocol: Activity Type Activity Date Activity User E-sign Co-sign Detail Recorded Client Recorded Date Recorded By Document 08/20/22 14:08 WENCESLAO [id number] 08/20/22 14:17 JF Edit Result 08/20/22 14:08 JF (1) [id number] 08/20/22 14:17 JF (1) #1 LKnee - NPWT Application Charge NPWT </= 50 sq cm => NPWT & Debridement ($) => (nc) 08/20/22 14:08 Wound Care Center Nurse 3 #1 Left distal medial thigh -Ulcer Cleansing Rinsed/ Irrigated with Saline -Foul Odor after Cleansing No -Negative Pressure Wound Therapy Continue -Setting (mmHg) 150 -Negative Pressure is Continuous -NPWT Application Charge NPWT & Debridement (nc ) Treatment Response Procedure Tolerated Well Pain Scale: 0-10 Numeric Is Patient Pain Free? No Left distal medial thigh -Description Throbbing, Burning -Intensity 6 -Pain Behavior Crying,Rubbing Site -Pain Aggravating Factors ADL's -Alleviating Factors/Interventions Medication -Comments Medicated prior to appt. Spoke with about different meds for pain. WC - Visit Discharge Discharge Condition Stable Ambulatory Status Ambulatory, Wheelchair Transportation Private Auto Accompanied by Facility Type Home Health Orders Sent Yes Assessment/Plan Assessment/Plan (1) Traumatic hematoma of left thigh: CODE(S): S70.12XA - Contusion of left thigh, initial encounter (2) Skin necrosis: CODE(S): I96 - Gangrene, not elsewhere classified (3) [facility] (current) use of anticoagulants: CODE(S): Z79.01 - intermission coordinator (current) use of anticoagulants (4) History of deep vein thrombosis: CODE(S): Z86.718 - Personal history of other venous thrombosis and embolism (5) Long-term current use of tocilizumab: CODE(S): Z79.899 - Other alf (current) drug therapy (6) Rheumatoid arthritis: CODE(S): M06.9 - Rheumatoid arthritis, unspecified (7) Open wound of left thigh: CODE(S): S71.102A - Unspecified open wound, left thigh, initial encounter PLAN: Plan Patient has a traumatic hematoma wound left distal medial thigh. Continue the VAC at 150 mmHg continuous suction 2-3x per week. Her increased pain is expected because of her autoimmune issues. Will send a script for Dilaudid. In addition, she may need at a future visit, a Duragesic Patch. If the pain from the VAC does not improve, we will stop the VAC and begin Dakin's dressing changes. In this patient I would be inclined to proceed with skin graft a little quicker than normal hoping that the pain would improve since the wound is covered with the skin graft. Also closing the wound sooner with a skin graft would be helpful for her rheumatoid arthritis. She is being treated with Tocilizumab which can delay wound healing and can worsen infections if present in the wound. Also discussed with her that when the skin graft is done, she is at increased risk of having some compromise of the skin graft during the healing process because of her decreased immune system. If that happens, she would be a candidate for HBO treatments to help salvage the skin graft. Operative culture was negative. She was treated perioperatively with Levaquin and will continue them. Prealbumin was 27.0 on 08/13/22. Encourage nutritional supplementation with protein to help the healing process. Followup one week.
--- NOTE | 2022-08-26 13:05 | WC ---
Patient called in stating that her pain to ulcer is bad and was told to call in if her pain wasn't managed well with the new prescription, Dilaudid. Court Coughlin RHEOLOGIST was made aware of this and said she will be in contact with Dr Donahue once he is done with surgeries today. Spoke to patient about this and she does have an appt with Dr Donahue here [facility] on 08/27/22 at 2pm. I told her if she didn't get a call today from Dr Donahue, that it will be addressed at her appointment then. She verbalized understanding.
--- NOTE | 2022-08-26 15:00 | WC ---
In addition to previous message from phone call, patient did appear drowsy on the phone when speaking to her in regards to her increase pain and stated that the Dilaudid is crap for pain management. Again, reinforced to her that Dr Donahue will be informed once he is finished with surgery.
== END 2022-08-26 23:59 | disposition home or self-care (01) ==
LOC: WC 13:08
PROVIDERS: PCP Family Medicine Geriatric Medicine; Referring Provider Surgery; Visit Provider Surgery
DX: S70.12XA Contusion of left thigh, initial encounter (principal); I96 Gangrene, not elsewhere classified; M06.9 Rheumatoid arthritis, unspecified; Z79.01 Long term (current) use of anticoagulants; Z86.718 Personal history of other venous thrombosis and embolism; Z79.899 Other long term (current) drug therapy; S71.102A Unspecified open wound, left thigh, initial encounter; W22.09XA Striking against other stationary object, initial encounter
CPT/HCPCS: 11043; 11046; 97605; 99214; G0463

== ENCOUNTER 2022-09-24 14:00 | Outpatient (RCR) | payer MEDICARE, OTHER, SELFPAY ==
[2022-08-27 00:49] VITALS: BP 151/67; PULSE 70; RESP 20; TEMP 36.2
[2022-08-27 14:15] VITALS: BP 128/92; PULSE 78; RESP 22; TEMP 36.8
--- NOTE | 2022-08-27 17:17 | PN.PCM_ITS ---
History of Present Illness Date of Service: 08/27/22 Chief Complaint: Open surgical hematoma wound left distal medial thigh. History of Wound: 67 year old woman who is on Coumadin for history of blood clots sustained a traumatic hematoma to her left distal medial thigh on , 08/06/22, when her left thigh hit the edge of a table at lunch. Despite robert wrap compression and ice packs over the next several days, the hematoma continued to increase in size which put pressure on the overlying skin that turned necrotic. She went to surgery on 08/12/22 where she underwent surgical preparation left distal medial thigh with incision and drainage and evacuation traumatic hematoma with excisional debridement overlying skin necrosis (81 cm2). Wound care has been with the VAC at 150 mmHg continuous suction 3x per week. Operative culture - negative. Pathololgy - Pieces of skin and adipose tissue with focal area of hemorrhage, clinically hematoma. CT Left lower extremity - 08/06/22 - There is a subdermal mass likely a hematoma in the distal thigh anteromedially. Prealbumin from 08/13/22 was 27.0. Encourage nutritional supplementation with protein to help the healing process. Today she denies fever. She is having a lot of pain with the dressing change. Progress of Wound: Improving with increased granulation tissue. Objective Data Objective Data Vital Signs: Vital Signs Temp Pulse Resp BP 98.2 F 78 22 H 128/92 H 08/27/22 14:15 08/27/22 14:15 08/27/22 14:15 08/27/22 14:15 Prealbumin was 27.0 on 08/13/22. Encourage nutritional supplementation with protein to help the healing process. Lab / Micro Data Attestation: I reviewed the patient's lab results. Charges/Coding Addendum Addendum: Wound Care Visit CPT - 63960 ICD-10 - S71.102A, S70.12xA, I96, Z79.01, Z86.718, Z78.899, M06.9 Procedures Integumentary [id number]: [id number] Global Visit (ICD-10 - S70.12xA, I96, Z79.01, Z86.718, Z79.899, M06.9, S71.102A) Debridement Note Debridement Note Wound debrided: #1 Left distal medial thigh Laterality: Left Wound Grade/Stage: 2. Type of Debridement: Excisional debridement Anesthesia Used: 4% Lidocaine Solution Depth: Down to and including healthy tissue, in the subcutaneous layer and to muscle Percentage of wound debrided: 100 Instrument Used: 5mm curette Tissue Removed: subcutaneous tissue and muscle Severity: Fat Layer Exposed (muscle exposed.) Amount of bleeding with debridement: Mild Bleeding Controlled with: Pressure and Compression and gauze Patient tolerated procedure: Patient tolerated procedure well (It was still painful for her but she got through it fairly well. Occasional areas really hurt. She did pretty good the rest of the time.) Post-Debridement Measurements and Additional Note: Post-Debridement Measurements/Treatment MYRA - Nurse 1 - General Ulcer Assessment Start: 08/27/22 14:14 Freq: Status: Active Protocol: LILIYA Activity Type Activity Date Activity User E-sign Co-sign Detail Recorded Client Recorded Date Recorded By Document 08/27/22 14:15 DL [id number] 08/27/22 14:25 DL 08/27/22 14:15 WC - Today's Visit Information Type of service Follow-up Visit (Physician/PROJECT GEOLOGIST ) Arrival Mode Wheelchair Transfer Assistance None Patient Identification Verified (Name & Yes ) Patient Requires Transmission-Based No Precautions Vital Signs Temperature (97.8 F-99.1 F) 98.2 F Temperature Source Temporal Pulse Rate (60-100) 78 Respiratory Rate (12-18) 22 H Respiratory rate source Observation Blood Pressure (90/60-120/80) 128/92 H Blood Pressure Mean (mm Hg) 104 Source Monitor History Since Last Visit- (Skip if this is Patient's initial visit) Have you changed medications since your No last visit? Any new allergies or adverse reactions No Had a fall/change in ADL's that may No increase risk of falls Signs or symptoms of abuse and/or No neglect since last visit Have you been in the hospital since your No last visit? Has dressing in place as prescribed Yes Has compression in place as prescribed Yes Has offloadiing in place as prescribed Yes Experienced any changes in pain level or No management Pain Scale: 0-10 Numeric Is Patient Pain Free? Yes MYRA Nascimento Nurse 1 - General Ulcer Measurement Start: 08/27/22 14:14 Freq: Status: Active Protocol: Activity Type Activity Date Activity User E-sign Co-sign Detail Recorded Client Recorded Date Recorded By Document 08/27/22 14:15 JOHNATHAN [id number] 08/27/22 14:25 DL 08/27/22 14:15 Wound Center Nurse 1 #1 L Knee -Current Size (cm) - Length 8.6 -Current Size (cm) - Width 6.3 -Current Size (cm) - Depth 1.8 -Total Square Cm 54.18 -Photo Taken No -Undermining/Tunneling Starts (O'clock 8 ) -Undermining/Tunneling Ends (O'clock) 10 -Maximum Distance (cm) 1 -Exudate Amt Medium -Exudate Type Serosanguineous -Wound Margin Distinct, Outline Attached -Granulation Amt Medium (34-66%) -Granulation Quality Red -Necrosis Amt Medium (34-66%) -Necrotic Tissue Type Adherent Slough -Structure Exposed N/A -Texture (Jannet-wound Skin Appearance) Scarring -Moisture (Jannet-wound Skin Appearance) No Abnormality -Color (Jannet-wound Skin Appearance) No Abnormality -Temperature (Jannet-wound Skin No Abnormality Appearance) (Pt Warm) -Tenderness on Palpation (Jannet-wound No Skin Appearance) -Ulcer Cleansing Soap and Water -Foul Odor after Cleansing No -Anesthetic Used 4% Lidocaine Solution,5% Lidocaine Gel WC - Nurse 2 - General Ulcer CM Notes Start: 08/27/22 14:14 Freq: Status: Active Protocol: Activity Type Activity Date Activity User E-sign Co-sign Detail Recorded Client Recorded Date Recorded By Document 08/27/22 14:31 [id number] 08/27/22 14:41 08/27/22 14:31 Wound Center Nurse 2 -Time 14:37 -Correct Patient Yes -Correct Side, Site, Position Yes -Correct Procedure Yes -Procedure Performed Yes -Type of Procedure Debridement -Clinical Debridement Muscle / Fascia -Tissue Removed Muscle,Fascia -Post Debridement (cm) - Length 9.0 -Post Debridement (cm) - Width 8.0 -Post Debridement (cm) - Depth 2.4 -Total Square (Post) (cm) 72.00 -Area of Debridement (cm) - Length 9.0 -Area of Debridement (cm) - Width 8.0 -Total Square (Area) (cm) 72.00 -Tunneling No -Undermining/Tunneling No -Circular Undermining No -Wound/Ulcer Outcome Not Healed -Ulcer Cleansing Rinsed/ Irrigated with Saline -Foul Odor after Cleansing No -Bioengineered Tissue No -Bleeding Controlled with Pressure -Treatment Response Procedure Tolerated Well -Offloading No -Debridement - Muscle / Fascia, 1st Yes 20sq cm -Debridement, Muscle/Fascia, ea addt'l 3 20sq cm or part thereof Pain Scale: 0-10 Numeric Is Patient Pain Free? Yes WC - Nurse 3 - General Ulcer D/C NN Start: 08/27/22 14:14 Freq: Status: Active Protocol: Activity Type Activity Date Activity User E-sign Co-sign Detail Recorded Client Recorded Date Recorded By Document 08/27/22 15:02 DL [id number] 08/27/22 15:03 DL 08/27/22 15:02 Wound Care Center Nurse 3 #1 L Knee -Ulcer Cleansing Not Cleansed -Foul Odor after Cleansing No -Negative Pressure Wound Therapy Continue -Setting (mmHg) 150 -Negative Pressure is Continuous -NPWT Application Charge NPWT & Debridement (nc ) Treatment Response Procedure Tolerated Well Pain Scale: 0-10 Numeric Is Patient Pain Free? 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 Continue the VAC at 150 mmHg continuous suction 2-3x per week. Her increased pain is expected because of her autoimmune issues. She states the Dilaudid is not effective. I am going to send a script for Valium for spasm. Some of her pain could be related to muscle spasm pain. Renewed Dilaudid for pain a(40 tabs). In addition, she may need at a future visit, a Duragesic Patch. If the pain from the VAC does not improve, we will stop the VAC and begin Dakin's dressing changes. She wants to try the VAC and Valium one more week In this patient I would be inclined to proceed with skin graft a little quicker than normal hoping that the pain would improve since the wound is covered with the skin graft. Also closing the wound sooner with a skin graft would be helpful for her rheumatoid arthritis. She is being treated with Tocilizumab which can delay wound healing and can worsen infections if present in the wound. Also discussed with her that when the skin graft is done, she is at increased risk of having some compromise of the skin graft during the healing process because of her decreased immune system. If that happens, she would be a candidate for HBO treatments to help salvage the skin graft. Operative culture was negative. She was treated perioperatively with Levaquin and is finishing them. Prealbumin was 27.0 on 08/13/22. Encourage nutritional supplementation with protein to help the healing process. Followup one week.
[2022-09-03 13:28] VITALS: BP 125/64; PULSE 77; RESP 16
--- NOTE | 2022-09-03 15:06 | PN.PCM_ITS ---
History of Present Illness Date of Service: 09/03/22 Chief Complaint: Open surgical hematoma wound left distal medial thigh. History of Wound: 67 year old woman who is on Coumadin for history of blood clots sustained a traumatic hematoma to her left distal medial thigh on , 08/06/22, when her left thigh hit the edge of a table at lunch. Despite david wrap compression and ice packs over the next several days, the hematoma continued to increase in size which put pressure on the overlying skin that turned necrotic. She went to surgery on 08/12/22 where she underwent surgical preparation left distal medial thigh with incision and drainage and evacuation traumatic hematoma with excisional debridement overlying skin necrosis (81 cm2). Wound care has been with the VAC at 150 mmHg continuous suction 3x per week. Operative culture - negative. Pathololgy - Pieces of skin and adipose tissue with focal area of hemorrhage, clinically hematoma. CT Left lower extremity - 08/06/22 - There is a subdermal mass likely a hematoma in the distal thigh anteromedially. Prealbumin from 08/13/22 was 27.0. Encourage nutritional supplementation with protein to help the healing process. Today she denies fever. She is having a little less pain with the use of Valium for the VAC dressing change. Progress of Wound: Improving with increased granulation tissue. Objective Data Objective Data Vital Signs: Vital Signs Temp Pulse Resp BP O2 Del Method 98.2 F 77 16 125/64 H Room Air 08/27/22 14:15 09/03/22 13:28 09/03/22 13:28 09/03/22 13:28 09/03/22 13:28 Oxygen Delivery Method Room Air Prealbumin was 27.0 on 08/13/22. Encourage nutritional supplementation with protein to help the healing process. Lab / Micro Data Attestation: I reviewed the patient's lab results. Charges/Coding Procedures Integumentary 111xxx-113xx: 16625 Global Visit (ICD-10 - S70.12xA, I96, S71.102A, Z79.01, Z86.718, Z79.899, M06.9) Debridement Note Debridement Note Wound debrided: #1 Left distal medial thigh Laterality: Left Wound Grade/Stage: 2. Type of Debridement: Excisional debridement Anesthesia Used: 4% Lidocaine Solution Depth: Down to and including healthy tissue, in the subcutaneous layer and to muscle Percentage of wound debrided: 100 Instrument Used: 5mm curette Tissue Removed: subcutaneous tissue and muscle Severity: Fat Layer Exposed (muscle exposed.) Amount of bleeding with debridement: Mild Bleeding Controlled with: Pressure and Compression and gauze Patient tolerated procedure: Patient tolerated procedure well (Not as painful as last week. Occasional areas really hurt. She did pretty well the rest of the time.) Post-Debridement Measurements and Additional Note: Post-Debridement Measurements/Treatment - Nurse 1 - General Ulcer Assessment Start: 08/27/22 14:14 Freq: Status: Active Protocol: LOWEXAndres Activity Type Activity Date Activity User E-sign Co-sign Detail Recorded Client Recorded Date Recorded By Document 08/27/22 14:15 DL [id number] 08/27/22 14:25 DL Document 09/03/22 13:28 BM [id number] 09/03/22 13:35 BMF 08/27/22 09/03/22 14:15 13:28 - Today's Visit Information Type of service Follow-up Visit Follow-up Visit (Physician/MANAGER UTILIZATION MANAGEMENT (Physician/MANAGER UTILIZATION MANAGEMENT ) ) Arrival Mode Wheelchair Ambulatory, Walker Transfer Assistance None None Accompanied by HUSB Patient Identification Verified (Name & Yes Yes ) Patient Requires Transmission-Based No No Precautions Vital Signs Temperature (97.8 F-99.1 F) 98.2 F Temperature Source Temporal Pulse Rate (60-100) 78 77 Pulse Location Monitor Respiratory Rate (12-18) 22 H 16 Respiratory rate source Observation Observation Oxygen Delivery Method Room Air Blood Pressure (90/60-120/80) 128/92 H 125/64 H Blood Pressure Mean (mm Hg) 104 84 Source Monitor Monitor Position Sitting Blood Pressure Location Left Arm History Since Last Visit- (Skip if this is Patient's initial visit) Have you changed medications since your No No last visit? Any new allergies or adverse reactions No No Had a fall/change in ADL's that may No No increase risk of falls Signs or symptoms of abuse and/or No No neglect since last visit Have you been in the hospital since your No No last visit? Has dressing in place as prescribed Yes Yes Has compression in place as prescribed Yes Yes Has offloadiing in place as prescribed Yes N/A Experienced any changes in pain level or No No management Left Footwear Regular Shoe Right Footwear Regular Shoe Pain Scale: 0-10 Numeric Is Patient Pain Free? Yes Yes WC - Nurse 1 - General Ulcer Measurement Start: 08/27/22 14:14 Freq: Status: Active Protocol: Activity Type Activity Date Activity User E-sign Co-sign Detail Recorded Client Recorded Date Recorded By Document 08/27/22 14:15 DL [id number] 08/27/22 14:25 DL Document 09/03/22 13:28 [facility] [id number] 09/03/22 13:35 BMF 08/27/22 09/03/22 14:15 13:28 Wound Center Nurse 1 #1 L Knee -Combined with other wound No -Current Size (cm) - Length 8.6 8.6 -Current Size (cm) - Width 6.3 7.3 -Current Size (cm) - Depth 1.8 1.4 -Total Square Cm 54.18 62.78 -Date of Last Picture (Recall this 09/03/22 field) -Photo Taken No Yes -Epithelialization Small 1-33% -Tunneling No -Undermining/Tunneling No -Undermining/Tunneling Starts (O'clock 8 ) -Undermining/Tunneling Ends (O'clock) 10 -Maximum Distance (cm) 1 -Circular Undermining No -Exudate Amt Medium Large -Exudate Type Serosanguineous Serosanguineous -Wound Margin Distinct, Distinct, Outline Outline Attached Attached -Granulation Amt Medium (34-66%) Large (67-100%) -Granulation Quality Red Red -Slough/Fibrin Yes -Necrosis Amt Medium (34-66%) Small (1-33%) -Necrotic Tissue Type Adherent Slough Adherent Slough -Structure Exposed N/A -Texture (Jannet-wound Skin Appearance) Scarring Assessed, Scarring -Moisture (Jannet-wound Skin Appearance) No Abnormality Assessed -Color (Jannet-wound Skin Appearance) No Abnormality Assessed -Temperature (Jannet-wound Skin No Abnormality No Abnormality Appearance) (Pt Warm) (Pt Warm) -Tenderness on Palpation (Jannet-wound No Yes Skin Appearance) -Ulcer Cleansing Soap and Water Soap and Water -Foul Odor after Cleansing No Yes, Due to Product Use -Anesthetic Used 4% Lidocaine 4% Lidocaine Solution,5% Solution Lidocaine Gel Lower Limb Edema Present Yes Left Calf (cm) 35.5 Left Ankle (cm) 20.4 WC - Nurse 2 - General Ulcer CM Notes Start: 08/27/22 14:14 Freq: Status: Active Protocol: Activity Type Activity Date Activity User E-sign Co-sign Detail Recorded Client Recorded Date Recorded By Document 08/27/22 14:31 [id number] 08/27/22 14:41 Document 09/03/22 13:56 [id number] 09/03/22 14:01 08/27/22 09/03/22 14:31 13:56 Wound Center Nurse 2 #1 L Knee -Time 14:37 14:00 -Correct Patient Yes Yes -Correct Side, Site, Position Yes Yes -Correct Procedure Yes Yes -Procedure Performed Yes Yes -Type of Procedure Debridement Debridement -Clinical Debridement Muscle / Fascia Muscle / Fascia -Tissue Removed Muscle,Fascia Muscle,Fascia -Post Debridement (cm) - Length 9.0 9.0 -Post Debridement (cm) - Width 8.0 7.4 -Post Debridement (cm) - Depth 2.4 1.8 -Total Square (Post) (cm) 72.00 66.60 -Area of Debridement (cm) - Length 9.0 9.0 -Area of Debridement (cm) - Width 8.0 7.4 -Total Square (Area) (cm) 72.00 66.60 -Tunneling No No -Undermining/Tunneling No No -Circular Undermining No No -Wound/Ulcer Outcome Not Healed Not Healed -Ulcer Cleansing Rinsed/ Rinsed/ Irrigated with Irrigated with Saline Saline -Foul Odor after Cleansing No No -Bioengineered Tissue No No -Bleeding Controlled with Pressure Pressure -Treatment Response Procedure Procedure Tolerated Well Tolerated Well -Offloading No No -Debridement - Muscle / Fascia, 1st Yes Yes 20sq cm -Debridement, Muscle/Fascia, ea addt'l 3 3 20sq cm or part thereof Pain Scale: 0-10 Numeric Is Patient Pain Free? Yes Yes MYRA - Nurse 3 - General Ulcer D/C NN Start: 08/27/22 14:14 Freq: Status: Active Protocol: Activity Type Activity Date Activity User E-sign Co-sign Detail Recorded Client Recorded Date Recorded By Document 08/27/22 15:02 JOHNATHAN [id number] 08/27/22 15:03 DL Document 09/03/22 14:16 DL [id number] 09/03/22 14:19 DL 08/27/22 09/03/22 15:02 14:16 Wound Care Center Nurse 3 #1 L Knee -Ulcer Cleansing Not Cleansed Rinsed/ Irrigated with Saline -Foul Odor after Cleansing No No -Negative Pressure Wound Therapy Continue Continue -Setting (mmHg) 150 125 -Negative Pressure is Continuous Continuous -Primary Dressing Applied NonAdherent Contact Layer -NPWT Application Charge NPWT & NPWT & Debridement (nc Debridement (nc ) ) Left -Compression Wrap David Wrap Treatment Response Procedure Procedure Tolerated Well Tolerated Well Pain Scale: 0-10 Numeric Is Patient Pain Free? 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 Continue the VAC at 150 mmHg continuous suction 2-3x per week. She states the Valium has been helpful at the time of the VAC change. Her increased pain is expected because of her autoimmune issues. She states the Dilaudid is not effective. I am going to send a script for Valium for spasm. Some of her pain could be related to muscle spasm pain. Renewed Dilaudid for pain a(40 tabs). In addition, she may need at a future visit, a Duragesic Patch. Since the pain is improving from the VAC and she is starting to tolerate it better, will continue the VAC. In this patient I would be inclined to proceed with skin graft a little quicker than normal hoping that the pain would improve since the wound is covered with the skin graft. Also closing the wound sooner with a skin graft would be helpful for her rheumatoid arthritis. She is being treated with Tocilizumab which can delay wound healing and can worsen infections if present in the wound. Also discussed with her that when the skin graft is done, she is at increased risk of having some compromise of the skin graft during the healing process because of her decreased immune system. If that happens, she would be a candidate for HBO treatments to help salvage the skin graft. Operative culture was negative. She was treated perioperatively with Levaquin and is finishing them. Prealbumin was 27.0 on 08/13/22. Encourage nutritional supplementation with protein to help the healing process. Renewed Dilaudid for pain (28 tabs). Renewed Valium for spasm (20 tabs). Followup one week.
[2022-09-10 14:51] VITALS: BP 118/69; PULSE 75; TEMP 36.1
--- NOTE | 2022-09-10 16:37 | PN.PCM_ITS ---
History of Present Illness Date of Service: 09/10/22 Chief Complaint: Open surgical hematoma wound left distal medial thigh. History of Wound: 67 year old woman who is on Coumadin for history of blood clots sustained a traumatic hematoma to her left distal medial thigh on , 08/06/22, when her left thigh hit the edge of a table at lunch. Despite david wrap compression and ice packs over the next several days, the hematoma continued to increase in size which put pressure on the overlying skin that turned necrotic. She went to surgery on 08/12/22 where she underwent surgical preparation left distal medial thigh with incision and drainage and evacuation traumatic hematoma with excisional debridement overlying skin necrosis (81 cm2). Wound care has been with the VAC at 125 mmHg continuous suction 3x per week. Operative culture - negative. Pathology - Pieces of skin and adipose tissue with focal area of hemorrhage, clinically hematoma. CT Left lower extremity - 08/06/22 - There is a subdermal mass likely a hematoma in the distal thigh anteromedially. Prealbumin from 08/13/22 was 27.0. Encourage nutritional supplementation with protein to help the healing process. Today she denies fever. She is having a little less pain with the use of Valium for the VAC dressing change. Progress of Wound: Improving with increased granulation tissue. Objective Data Objective Data Vital Signs: Vital Signs Temp Pulse Resp BP O2 Del Method 96.9 F L 75 16 118/69 Room Air 09/10/22 14:51 09/10/22 14:51 09/03/22 13:28 09/10/22 14:51 09/03/22 13:28 Oxygen Delivery Method Room Air Lab / Micro Data Attestation: I reviewed the patient's lab results. Charges/Coding Procedures Integumentary 111xxx-113xx: 54055 Global Visit (ICD-10 - S70.12xA, I96, Z79.01, Z86.718, Z79.899, M06.9, S71.102A) Debridement Note Debridement Note Wound debrided: #1 Left distal medial thigh Laterality: Left Wound Grade/Stage: 2. Type of Debridement: Excisional debridement Anesthesia Used: 4% Lidocaine Solution Depth: Down to and including healthy tissue, in the subcutaneous layer and to muscle Percentage of wound debrided: 100 Instrument Used: 5mm curette Tissue Removed: subcutaneous tissue and muscle Severity: Fat Layer Exposed (muscle exposed.) Amount of bleeding with debridement: Mild Bleeding Controlled with: Pressure and Compression and gauze Patient tolerated procedure: Patient tolerated procedure well (Not as painful as last week. Occasional areas really hurt. She did pretty well the rest of the time.) Post-Debridement Measurements and Additional Note: Post-Debridement Measurements/Treatment MYRA - Nurse 1 - General Ulcer Assessment Start: 08/27/22 14:14 Freq: Status: Active Protocol: LILIYA Activity Type Activity Date Activity User E-sign Co-sign Detail Recorded Client Recorded Date Recorded By Document 08/27/22 14:15 DL [id number] 08/27/22 14:25 DL Document 09/03/22 13:28 BM [id number] 09/03/22 13:35 BMF Document 09/10/22 14:51 AK [id number] 09/10/22 14:53 AK 08/27/22 09/03/22 09/10/22 14:15 13:28 14:51 - Today's Visit Information Type of service Follow-up Visit Follow-up Visit Follow-up Visit (Physician/DEVELOPMENT TEAM LEAD (Physician/DEVELOPMENT TEAM LEAD (Physician/DEVELOPMENT TEAM LEAD ) ) ) Arrival Mode Wheelchair Ambulatory, Ambulatory Walker Transfer Assistance None None Accompanied by HUSB Patient Identification Verified (Name & Yes Yes No ) Patient Requires Transmission-Based No No No Precautions Vital Signs Temperature (97.8 F-99.1 F) 98.2 F 96.9 F L Temperature Source Temporal Temporal Pulse Rate (60-100) 78 77 75 Pulse Location Monitor Monitor Respiratory Rate (12-18) 22 H 16 Respiratory rate source Observation Observation Oxygen Delivery Method Room Air Blood Pressure (90/60-120/80) 128/92 H 125/64 H 118/69 Blood Pressure Mean (mm Hg) 104 84 85 Source Monitor Monitor Monitor Position Sitting Blood Pressure Location Left Arm History Since Last Visit- (Skip if this is Patient's initial visit) Have you changed medications since your No No No last visit? Any new allergies or adverse reactions No No No Had a fall/change in ADL's that may No No No increase risk of falls Signs or symptoms of abuse and/or No No No neglect since last visit Have you been in the hospital since your No No No last visit? Has dressing in place as prescribed Yes Yes Yes Has compression in place as prescribed Yes Yes Yes Has offloadiing in place as prescribed Yes N/A N/A Experienced any changes in pain level or No No No management Left Footwear Regular Shoe Regular Shoe Right Footwear Regular Shoe Regular Shoe Pain Scale: 0-10 Numeric Is Patient Pain Free? Yes Yes No WC - Nurse 1 - General Ulcer Measurement Start: 08/27/22 14:14 Freq: Status: Active Protocol: Activity Type Activity Date Activity User E-sign Co-sign Detail Recorded Client Recorded Date Recorded By Document 08/27/22 14:15 DL [id number] 08/27/22 14:25 DL Document 09/03/22 13:28 BMF [id number] 09/03/22 13:35 BMF Document 09/10/22 14:51 AK [id number] 09/10/22 14:53 AK 08/27/22 09/03/22 09/10/22 14:15 13:28 14:51 Wound Center Nurse 1 #1 L Knee -Combined with other wound No No -Current Size (cm) - Length 8.6 8.6 8 -Current Size (cm) - Width 6.3 7.3 6.5 -Current Size (cm) - Depth 1.8 1.4 0.4 -Total Square Cm 54.18 62.78 52.0 -Date of Last Picture (Recall this 09/03/22 field) -Photo Taken No Yes No -Epithelialization Small 1-33% -Tunneling No No -Undermining/Tunneling No No -Undermining/Tunneling Starts (O'clock 8 ) -Undermining/Tunneling Ends (O'clock) 10 -Maximum Distance (cm) 1 -Circular Undermining No No -Change in Wound Grade/Stage No -Exudate Amt Medium Large Large -Exudate Type Serosanguineous Serosanguineous Serosanguineous -Wound Margin Distinct, Distinct, Distinct, Outline Outline Outline Attached Attached Attached -Granulation Amt Medium (34-66%) Large (67-100%) Large (67-100%) -Granulation Quality Red Red Red -Slough/Fibrin Yes Yes -Necrosis Amt Medium (34-66%) Small (1-33%) Small (1-33%) -Necrotic Tissue Type Adherent Slough Adherent Slough Adherent Slough -Structure Exposed N/A N/A -Texture (Jannet-wound Skin Appearance) Scarring Assessed, No Abnormality, Scarring Assessed -Moisture (Jannet-wound Skin Appearance) No Abnormality Assessed No Abnormality, Assessed -Color (Jannet-wound Skin Appearance) No Abnormality Assessed No Abnormality, Assessed -Temperature (Jannet-wound Skin No Abnormality No Abnormality No Abnormality Appearance) (Pt Warm) (Pt Warm) (Pt Warm) -Tenderness on Palpation (Jannet-wound No Yes No Skin Appearance) -Ulcer Cleansing Soap and Water Soap and Water Rinsed/ Irrigated with Saline -Foul Odor after Cleansing No Yes, Due to No Product Use -Anesthetic Used 4% Lidocaine 4% Lidocaine 4% Lidocaine Solution,5% Solution Solution,5% Lidocaine Gel Lidocaine Gel Lower Limb Edema Present Yes Left Calf (cm) 35.5 Left Ankle (cm) 20.4 WC - Nurse 2 - General Ulcer CM Notes Start: 08/27/22 14:14 Freq: Status: Active Protocol: Activity Type Activity Date Activity User E-sign Co-sign Detail Recorded Client Recorded Date Recorded By Document 08/27/22 14:31 [id number] 08/27/22 14:41 Document 09/03/22 13:56 [id number] 09/03/22 14:01 Document 09/10/22 14:38 [id number] 09/10/22 14:45 08/27/22 09/03/22 09/10/22 14:31 13:56 14:38 Wound Center Nurse 2 #1 L Knee -Time 14:37 14:00 14:41 -Correct Patient Yes Yes Yes -Correct Side, Site, Position Yes Yes Yes -Correct Procedure Yes Yes Yes -Procedure Performed Yes Yes Yes -Type of Procedure Debridement Debridement Debridement -Clinical Debridement Muscle / Fascia Muscle / Fascia Muscle / Fascia -Tissue Removed Muscle,Fascia Muscle,Fascia Muscle,Fascia -Post Debridement (cm) - Length 9.0 9.0 8.2 -Post Debridement (cm) - Width 8.0 7.4 6.8 -Post Debridement (cm) - Depth 2.4 1.8 1.3 -Total Square (Post) (cm) 72.00 66.60 55.76 -Area of Debridement (cm) - Length 9.0 9.0 8.2 -Area of Debridement (cm) - Width 8.0 7.4 6.8 -Total Square (Area) (cm) 72.00 66.60 55.76 -Tunneling No No No -Undermining/Tunneling No No No -Circular Undermining No No No -Wound/Ulcer Outcome Not Healed Not Healed Not Healed -Ulcer Cleansing Rinsed/ Rinsed/ Rinsed/ Irrigated with Irrigated with Irrigated with Saline Saline Saline -Foul Odor after Cleansing No No -Bioengineered Tissue No No No -Bleeding Controlled with Pressure Pressure Pressure -Treatment Response Procedure Procedure Procedure Tolerated Well Tolerated Well Tolerated Well -Offloading No No No -Debridement - Muscle / Fascia, 1st Yes Yes Yes 20sq cm -Debridement, Muscle/Fascia, ea addt'l 3 3 2 20sq cm or part thereof Pain Scale: 0-10 Numeric Is Patient Pain Free? Yes Yes Yes WC - Nurse 3 - General Ulcer D/C NN Start: 08/27/22 14:14 Freq: Status: Active Protocol: Activity Type Activity Date Activity User E-sign Co-sign Detail Recorded Client Recorded Date Recorded By Document 08/27/22 15:02 DL [id number] 08/27/22 15:03 DL Document 09/03/22 14:16 DL [id number] 09/03/22 14:19 DL Document 09/10/22 14:51 AK [id number] 09/10/22 14:53 AK 08/27/22 09/03/22 09/10/22 15:02 14:16 14:51 Wound Care Center Nurse 3 #1 L Knee -Ulcer Cleansing Not Cleansed Rinsed/ Irrigated with Saline -Foul Odor after Cleansing No No -Negative Pressure Wound Therapy Continue Continue -Setting (mmHg) 150 125 -Negative Pressure is Continuous Continuous -Primary Dressing Applied NonAdherent Contact Layer -NPWT Application Charge NPWT & NPWT & Debridement (nc Debridement (nc ) ) Left -Compression Wrap David Wrap Treatment Response Procedure Procedure Tolerated Well Tolerated Well Vital Signs Temperature (97.8 F-99.1 F) 96.9 F L Temperature Source Temporal Pulse Rate (60-100) 75 Pulse Location Monitor Blood Pressure (90/60-120/80) 118/69 Blood Pressure Mean (mm Hg) 85 Source Monitor Pain Scale: 0-10 Numeric Is Patient Pain Free? 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 Continue the VAC at 125 mmHg continuous suction 2-3x per week. Will see if the lower suction will be less painful. She states the Valium has been helpful at the time of the VAC change. Her increased pain is expected because of her autoimmune issues. She states the Dilaudid is making the wound care more tolerable. Renewed Valium for spasm (20 tabs). Renewed Dilaudid for pain a(40 tabs). Since the pain is improving from the VAC and she is starting to tolerate it better, will continue the VAC. In this patient I would be inclined to proceed with skin graft a little quicker than normal hoping that the pain would improve since the wound is covered with the skin graft. Also closing the wound sooner with a skin graft would be helpful for her rheumatoid arthritis. She is being treated with Tocilizumab which can delay wound healing and can worsen infections if present in the wound. Also discussed with her that when the skin graft is done, she is at increased risk of having some compromise of the skin graft during the healing process because of her decreased immune system. If that happens, she would be a jordy te for HBO treatments to help salvage the skin graft. Operative culture was negative. She was treated perioperatively with Levaquin and is finishing them. Prealbumin was 27.0 on 08/13/22. Encourage nutritional supplementation with protein to help the healing process. Renewed Dilaudid for pain (28 tabs). Renewed Valium for spasm (20 tabs). Discussed with her about advanced skin substitutes such as Thera-Skin. May be able to heal the wound without going back to surgery for an autograft. Will get approval for the Thera-Skin. It is applied 10 times in a 12 week period. Patient is interested. If the wound is not totally healed after the 10 treatments, placement of an autograft has better chance of healing because the Thera-Skin has primed the wound base. Followup one week.
[2022-09-17 13:53] VITALS: BP 141/82; PULSE 74; RESP 20; TEMP 35.8
--- NOTE | 2022-09-17 14:21 | PCM.WC.PN ---
History of Present Illness Date of Service: 09/17/22 Chief Complaint: Open surgical hematoma wound left distal medial thigh. History of Wound: 67 year old woman who is on Coumadin for history of blood clots sustained a traumatic hematoma to her left distal medial thigh on , 08/06/22, when her left thigh hit the edge of a table at lunch. Despite david wrap compression and ice packs over the next several days, the hematoma continued to increase in size which put pressure on the overlying skin that turned necrotic. She went to surgery on 08/12/22 where she underwent surgical preparation left distal medial thigh with incision and drainage and evacuation traumatic hematoma with excisional debridement overlying skin necrosis (81 cm2). Wound care has been with the VAC at 125 mmHg continuous suction 3x per week. Operative culture - negative. Pathology - Pieces of skin and adipose tissue with focal area of hemorrhage, clinically hematoma. CT Left lower extremity - 08/06/22 - There is a subdermal mass likely a hematoma in the distal thigh anteromedially. Prealbumin from 08/13/22 was 27.0. Encourage nutritional supplementation with protein to help the healing process. Today she denies fever. She is having a little less pain with the use of Valium for the VAC dressing change. Progress of Wound: Improving with increased granulation tissue. Objective Data Objective Data Vital Signs: Vital Signs Temp Pulse Resp BP O2 Del Method 96.4 F L 74 20 H 141/82 H Room Air 09/17/22 13:53 09/17/22 13:53 09/17/22 13:53 09/17/22 13:53 09/17/22 13:53 Oxygen Delivery Method Room Air MEDICATIONS Bactrim DS Zoloft Percocet Procardia XL ALLERGIES Pollen Lab / Micro Data Attestation: I reviewed the patient's lab results. Micro: Prealbumin from 08/13/22 was 27.0. Encourage nutritional supplementation with protein to help the healing process. Debridement Note Debridement Note Wound debrided: #1 Left distal medial thigh. Laterality: Left Wound Grade/Stage: 3. Type of Debridement: Excisional debridement Anesthesia Used: 4% Lidocaine Solution Depth: Down to and including healthy tissue, in the subcutaneous layer and to muscle Percentage of wound debrided: 100 Instrument Used: 5mm curette Tissue Removed: subcutaneous tissue and muscle Severity: Fat Layer Exposed (muscle exposed.) Amount of bleeding with debridement: Mild Bleeding Controlled with: Pressure and Compression and gauze Patient tolerated procedure: Patient tolerated procedure well (Not as painful as last week. Occasional areas really hurt. She did pretty well the rest of the time.) Post-Debridement Measurements and Additional Note: Post-Debridement Measurements/Treatment - Nurse 1 - General Ulcer Assessment Start: 08/27/22 14:14 Freq: Status: Active Protocol: JENAROEXAndres Activity Type Activity Date Activity User E-sign Co-sign Detail Recorded Client Recorded Date Recorded By Document 08/27/22 14:15 DL [id number] 08/27/22 14:25 DL Document 09/03/22 13:28 BMF [id number] 09/03/22 13:35 BMF Document 09/10/22 14:51 AK [id number] 09/10/22 14:53 AK Document 09/17/22 13:53 BMF [id number] 09/17/22 13:57 BMF 08/27/22 09/03/22 09/10/22 14:15 13:28 14:51 - Today's Visit Information Type of service Follow-up Visit Follow-up Visit Follow-up Visit (Physician/CARTON COUNTER FEEDER (Physician/CARTON COUNTER FEEDER (Physician/CARTON COUNTER FEEDER ) ) ) Arrival Mode Wheelchair Ambulatory, Ambulatory Walker Transfer Assistance None None Accompanied by HUSB Patient Identification Verified (Name & Yes Yes No ) Patient Requires Transmission-Based No No No Precautions Vital Signs Temperature (97.8 F-99.1 F) 98.2 F 96.9 F L Temperature Source Temporal Temporal Pulse Rate (60-100) 78 77 75 Pulse Location Monitor Monitor Respiratory Rate (12-18) 22 H 16 Respiratory rate source Observation Observation Oxygen Delivery Method Room Air Blood Pressure (90/60-120/80) 128/92 H 125/64 H 118/69 Blood Pressure Mean (mm Hg) 104 84 85 Source Monitor Monitor Monitor Position Sitting Blood Pressure Location Left Arm History Since Last Visit- (Skip if this is Patient's initial visit) Have you changed medications since your No No No last visit? Any new allergies or adverse reactions No No No Had a fall/change in ADL's that may No No No increase risk of falls Signs or symptoms of abuse and/or No No No neglect since last visit Have you been in the hospital since your No No No last visit? Has dressing in place as prescribed Yes Yes Yes Has compression in place as prescribed Yes Yes Yes Has offloadiing in place as prescribed Yes N/A N/A Experienced any changes in pain level or No No No management Left Footwear Regular Shoe Regular Shoe Right Footwear Regular Shoe Regular Shoe Pain Scale: 0-10 Numeric Is Patient Pain Free? Yes Yes No 09/17/22 13:53 - Today's Visit Information Type of service Follow-up Visit (Physician/CARTON COUNTER FEEDER ) Arrival Mode Ambulatory Transfer Assistance None Accompanied by Patient Identification Verified (Name & Yes ) Patient Requires Transmission-Based No Precautions Vital Signs Temperature (97.8 F-99.1 F) 96.4 F L Temperature Source Temporal Pulse Rate (60-100) 74 Pulse Location Monitor Respiratory Rate (12-18) 20 H Respiratory rate source Observation Oxygen Delivery Method Room Air Blood Pressure (90/60-120/80) 141/82 H Blood Pressure Mean (mm Hg) 101 Source Monitor Position Sitting Blood Pressure Location History Since Last Visit- (Skip if this is Patient's initial visit) Have you changed medications since your No last visit? Any new allergies or adverse reactions No Had a fall/change in ADL's that may No increase risk of falls Signs or symptoms of abuse and/or No neglect since last visit Have you been in the hospital since your No last visit? Has dressing in place as prescribed Yes Has compression in place as prescribed Yes Has offloadiing in place as prescribed N/A Experienced any changes in pain level or No management Left Footwear Regular Shoe Right Footwear Regular Shoe Pain Scale: 0-10 Numeric Is Patient Pain Free? Yes - Nurse 1 - General Ulcer Measurement Start: 08/27/22 14:14 Freq: Status: Active Protocol: Activity Type Activity Date Activity User E-sign Co-sign Detail Recorded Client Recorded Date Recorded By Document 08/27/22 14:15 DL [id number] 08/27/22 14:25 DL Document 09/03/22 13:28 [facility] [id number] 09/03/22 13:35 BM Document 09/10/22 14:51 AK [id number] 09/10/22 14:53 AK Document 09/17/22 13:53 [facility] [id number] 09/17/22 13:57 BMF 08/27/22 09/03/22 09/10/22 14:15 13:28 14:51 Wound Center Nurse 1 #1 L Knee -Combined with other wound No No -Current Size (cm) - Length 8.6 8.6 8 -Current Size (cm) - Width 6.3 7.3 6.5 -Current Size (cm) - Depth 1.8 1.4 0.4 -Total Square Cm 54.18 62.78 52.0 -Date of Last Picture (Recall this 09/03/22 field) -Photo Taken No Yes No -Epithelialization Small 1-33% -Tunneling No No -Undermining/Tunneling No No -Undermining/Tunneling Starts (O'clock 8 ) -Undermining/Tunneling Ends (O'clock) 10 -Maximum Distance (cm) 1 -Circular Undermining No No -Change in Wound Grade/Stage No -Exudate Amt Medium Large Large -Exudate Type Serosanguineous Serosanguineous Serosanguineous -Wound Margin Distinct, Distinct, Distinct, Outline Outline Outline Attached Attached Attached -Granulation Amt Medium (34-66%) Large (67-100%) Large (67-100%) -Granulation Quality Red Red Red -Slough/Fibrin Yes Yes -Necrosis Amt Medium (34-66%) Small (1-33%) Small (1-33%) -Necrotic Tissue Type Adherent Slough Adherent Slough Adherent Slough -Structure Exposed N/A N/A -Texture (Jannet-wound Skin Appearance) Scarring Assessed, No Abnormality, Scarring Assessed -Moisture (Jannet-wound Skin Appearance) No Abnormality Assessed No Abnormality, Assessed -Color (Jannet-wound Skin Appearance) No Abnormality Assessed No Abnormality, Assessed -Temperature (Jannet-wound Skin No Abnormality No Abnormality No Abnormality Appearance) (Pt Warm) (Pt Warm) (Pt Warm) -Tenderness on Palpation (Jannet-wound No Yes No Skin Appearance) -Ulcer Cleansing Soap and Water Soap and Water Rinsed/ Irrigated with Saline -Foul Odor after Cleansing No Yes, Due to No Product Use -Anesthetic Used 4% Lidocaine 4% Lidocaine 4% Lidocaine Solution,5% Solution Solution,5% Lidocaine Gel Lidocaine Gel Lower Limb Edema Present Yes Left Calf (cm) 35.5 Left Ankle (cm) 20.4 09/17/22 13:53 Wound Center Nurse 1 #1 L Knee -Combined with other wound -Current Size (cm) - Length -Current Size (cm) - Width -Current Size (cm) - Depth -Total Square Cm -Date of Last Picture (Recall this field) -Photo Taken Yes -Epithelialization -Tunneling -Undermining/Tunneling -Undermining/Tunneling Starts (O'clock ) -Undermining/Tunneling Ends (O'clock) -Maximum Distance (cm) -Circular Undermining -Change in Wound Grade/Stage -Exudate Amt Medium -Exudate Type Serosanguineous -Wound Margin Distinct, Outline Attached -Granulation Amt Large (67-100%) -Granulation Quality Red -Slough/Fibrin -Necrosis Amt Small (1-33%) -Necrotic Tissue Type Adherent Slough -Structure Exposed N/A -Texture (Jannet-wound Skin Appearance) Scarring -Moisture (Jannet-wound Skin Appearance) No Abnormality -Color (Jannet-wound Skin Appearance) No Abnormality -Temperature (Jannet-wound Skin No Abnormality Appearance) (Pt Warm) -Tenderness on Palpation (Jannet-wound No Skin Appearance) -Ulcer Cleansing Soap and Water -Foul Odor after Cleansing No -Anesthetic Used 4% Lidocaine Solution Lower Limb Edema Present Left Calf (cm) Left Ankle (cm) WC - Nurse 2 - General Ulcer CM Notes Start: 08/27/22 14:14 Freq: Status: Active Protocol: Activity Type Activity Date Activity User E-sign Co-sign Detail Recorded Client Recorded Date Recorded By Document 08/27/22 14:31 [id number] 08/27/22 14:41 Document 09/03/22 13:56 [id number] 09/03/22 14:01 Document 09/10/22 14:38 JF [id number] 09/10/22 14:45 Document 09/17/22 14:26 MW [id number] 09/17/22 15:03 MW Edit Result 09/17/22 14:26 MW (1) [id number] 09/18/22 07:02 PL (1) #1 L Knee - Apply Skin Sub - each addt'l 25 sq cm => 1 - Legs 08/27/22 09/03/22 09/10/22 14:31 13:56 14:38 Wound Center Nurse 2 #1 L Knee -Time 14:37 14:00 14:41 -Correct Patient Yes Yes Yes -Correct Side, Site, Position Yes Yes Yes -Correct Procedure Yes Yes Yes -Procedure Performed Yes Yes Yes -Type of Procedure Debridement Debridement Debridement -Clinical Debridement Muscle / Fascia Muscle / Fascia Muscle / Fascia -Tissue Removed Muscle,Fascia Muscle,Fascia Muscle,Fascia -Post Debridement (cm) - Length 9.0 9.0 8.2 -Post Debridement (cm) - Width 8.0 7.4 6.8 -Post Debridement (cm) - Depth 2.4 1.8 1.3 -Total Square (Post) (cm) 72.00 66.60 55.76 -Area of Debridement (cm) - Length 9.0 9.0 8.2 -Area of Debridement (cm) - Width 8.0 7.4 6.8 -Total Square (Area) (cm) 72.00 66.60 55.76 -Tunneling No No No -Undermining/Tunneling No No No -Circular Undermining No No No -Wound/Ulcer Outcome Not Healed Not Healed Not Healed -Ulcer Cleansing Rinsed/ Rinsed/ Rinsed/ Irrigated with Irrigated with Irrigated with Saline Saline Saline -Foul Odor after Cleansing No No -Bioengineered Tissue No No No -Type of Bioengineered Tissue -Expiration Date -Product Lot Number -Percent Used -Lot number of Saline Used -Bleeding Controlled with Pressure Pressure Pressure -Treatment Response Procedure Procedure Procedure Tolerated Well Tolerated Well Tolerated Well -Offloading No No No -Debridement - Muscle / Fascia, 1st Yes Yes Yes 20sq cm -Debridement, Muscle/Fascia, ea addt'l 3 3 2 20sq cm or part thereof -Apply Skin Sub - 1st 25 sq cm - Legs -Apply Skin Sub - each addt'l 25 sq cm - Legs -Theraskin (per sq cm) Pain Scale: 0-10 Numeric Is Patient Pain Free? Yes Yes Yes 09/17/22 14:26 Wound Center Nurse 2 #1 L Knee -Time 14:27 -Correct Patient Yes -Correct Side, Site, Position Yes -Correct Procedure Yes -Procedure Performed Yes -Type of Procedure Debridement -Clinical Debridement Muscle / Fascia -Tissue Removed Muscle -Post Debridement (cm) - Length 7.6 -Post Debridement (cm) - Width 5.5 -Post Debridement (cm) - Depth 0.4 -Total Square (Post) (cm) 41.80 -Area of Debridement (cm) - Length 7.6 -Area of Debridement (cm) - Width 5.5 -Total Square (Area) (cm) 41.80 -Tunneling No -Undermining/Tunneling No -Circular Undermining No -Wound/Ulcer Outcome Not Healed -Ulcer Cleansing Rinsed/ Irrigated with Saline -Foul Odor after Cleansing No -Bioengineered Tissue Yes -Type of Bioengineered Tissue Theraskin -Expiration Date 07/28/26 -Product Lot Number [id number] -Percent Used 100 -Lot number of Saline Used [id number] -Bleeding Controlled with Pressure -Treatment Response Procedure Tolerated Well -Offloading No -Debridement - Muscle / Fascia, 1st No 20sq cm -Debridement, Muscle/Fascia, ea addt'l 20sq cm or part thereof -Apply Skin Sub - 1st 25 sq cm - Legs 1 -Apply Skin Sub - each addt'l 25 sq cm 1 - Legs -Theraskin (per sq cm) 39 Pain Scale: 0-10 Numeric Is Patient Pain Free? Yes WC - Nurse 3 - General Ulcer D/C NN Start: 08/27/22 14:14 Freq: Status: Active Protocol: Activity Type Activity Date Activity User E-sign Co-sign Detail Recorded Client Recorded Date Recorded By Document 08/27/22 15:02 DL [id number] 08/27/22 15:03 DL Document 09/03/22 14:16 DL [id number] 09/03/22 14:19 DL Document 09/10/22 14:51 AK [id number] 09/10/22 14:53 AK Document 09/17/22 15:09 [facility] [id number] 09/17/22 15:09 [facility] 08/27/22 09/03/22 09/10/22 15:02 14:16 14:51 Wound Care Center Nurse 3 #1 L Knee -Ulcer Cleansing Not Cleansed Rinsed/ Irrigated with Saline -Foul Odor after Cleansing No No -Negative Pressure Wound Therapy Continue Continue -Setting (mmHg) 150 125 -Negative Pressure is Continuous Continuous -Primary Dressing Applied NonAdherent Contact Layer -Other Dressing -Primary Dressing Covered/Secured with -NPWT Application Charge NPWT & NPWT & Debridement (nc Debridement (nc ) ) Left -Compression Wrap David Wrap -Other Treatment Response Procedure Procedure Tolerated Well Tolerated Well Vital Signs Temperature (97.8 F-99.1 F) 96.9 F L Temperature Source Temporal Pulse Rate (60-100) 75 Pulse Location Monitor Blood Pressure (90/60-120/80) 118/69 Blood Pressure Mean (mm Hg) 85 Source Monitor Pain Scale: 0-10 Numeric Is Patient Pain Free? Yes Yes No WC - Visit Discharge Discharge Condition Stable Stable Ambulatory Status Ambulatory, Ambulatory, Wheelchair Walker Transportation Private Auto Private Auto Accompanied by family Facility Type Home Health Orders Sent Yes 09/17/22 15:09 Wound Care Center Nurse 3 #1 L Knee -Ulcer Cleansing -Foul Odor after Cleansing -Negative Pressure Wound Therapy -Setting (mmHg) -Negative Pressure is -Primary Dressing Applied -Other Dressing THERASKIN, ABD; PER DL APPLICATIONS SYSTEM ANALYST -Primary Dressing Covered/Secured with Dry Gauze & Roll Gauze, Secured with Tape -NPWT Application Charge Left -Compression Wrap David Wrap -Other LEFT THIGH Treatment Response Procedure Tolerated Well Vital Signs Temperature (97.8 F-99.1 F) Temperature Source Pulse Rate (60-100) Pulse Location Blood Pressure (90/60-120/80) Blood Pressure Mean (mm Hg) Source Pain Scale: 0-10 Numeric Is Patient Pain Free? Yes WC - Visit Discharge Discharge Condition Stable Ambulatory Status Ambulatory Transportation Private Auto Accompanied by Facility Type Orders Sent Assessment/Plan Assessment/Plan (1) Traumatic hematoma of left thigh: CODE(S): S70.12XA - Contusion of left thigh, initial encounter (2) Skin necrosis: CODE(S): I96 - Gangrene, not elsewhere classified (3) long term care administrator (current) use of anticoagulants: CODE(S): Z79.01 - long term care administrator (current) use of anticoagulants (4) History of deep vein thrombosis: CODE(S): Z86.718 - Personal history of other venous thrombosis and embolism (5) Long-term current use of tocilizumab: CODE(S): Z79.899 - Other senior living (current) drug therapy (6) Rheumatoid arthritis: CODE(S): M06.9 - Rheumatoid arthritis, unspecified (7) Open wound of left thigh: CODE(S): S71.102A - Unspecified open wound, left thigh, initial encounter PLAN: Plan Patient has a traumatic hematoma wound left distal medial thigh. Will hold the VAC for now as a VAC holiday. We had discussed advanced skin substitute grafts to further heal this open surgical hematoma wound. She is interested. We have received medical approval for this modality. Today will be first application of Thera-Skin after an adequate excisional debridement and irrigation with saline. Lot Number - [id number]. Percent used - 100%. Lot Number Saline Used - [id number]. Expiration - July 28, 2026. Amount of Thera-Skin used - 39 cm2. A wound veil was applied around the edges of the Thera-Skin followed by Kohler-Franco skin tissue adhesive and Steri-strips to secure the wound veil over the Thera-Skin. This was followed by dry gauze and roll gauze and a compression david wrap. Her increased pain is expected because of her autoimmune issues. She states the Dilaudid is making the wound care more tolerable. Renewed Valium for spasm (14 tabs). Renewed Dilaudid for pain a(28 tabs). In this patient I would be inclined to proceed with skin graft a little quicker than normal hoping that the pain would improve since the wound is covered with the skin graft. Also closing the wound sooner with a skin graft would be helpful for her rheumatoid arthritis. She is being treated with Tocilizumab which can delay wound healing and can worsen infections if present in the wound. Also discussed with her that when the skin graft is done, she is at increased risk of having some compromise of the skin graft during the healing process because of her decreased immune system. If that happens, she would be a candidate for HBO treatments to help salvage the skin graft. Operative culture was negative. She was treated perioperatively with Levaquin and is finishing them. Prealbumin was 27.0 on 08/13/22. Encourage nutritional supplementation with protein to help the healing process. Discussed with her about advanced skin substitutes such as Thera-Skin. May be able to heal the wound without going back to surgery for an autograft. We have received medical approval for the Thera-Skin. It is applied 10 times in a 12 week period. Patient is interested. If the wound is not totally healed after the 10 treatments, placement of an autograft has better chance of healing because the Thera-Skin has primed the wound base. Followup one week.
[2022-09-24 13:46] VITALS: BP 143/77; PULSE 74; RESP 20; TEMP 36.2
--- NOTE | 2022-09-24 17:05 | PCM.WC.PN ---
History of Present Illness Date of Service: 09/24/22 Chief Complaint: Open surgical hematoma wound left distal medial thigh. History of Wound: 67 year old woman who is on Coumadin for history of blood clots sustained a traumatic hematoma to her left distal medial thigh on , 08/06/22, when her left thigh hit the edge of a table at lunch. Despite david wrap compression and ice packs over the next several days, the hematoma continued to increase in size which put pressure on the overlying skin that turned necrotic. She went to surgery on 08/12/22 where she underwent surgical preparation left distal medial thigh with incision and drainage and evacuation traumatic hematoma with excisional debridement overlying skin necrosis (81 cm2). Wound care has been with the VAC at 125 mmHg continuous suction 3x per week. Operative culture - negative. Pathology - Pieces of skin and adipose tissue with focal area of hemorrhage, clinically hematoma. CT Left lower extremity - 08/06/22 - There is a subdermal mass likely a hematoma in the distal thigh anteromedially. Prealbumin from 08/13/22 was 27.0. Encourage nutritional supplementation with protein to help the healing process. Today she denies fever. She is having a little less pain with the use of Valium for the VAC dressing change. Had a discussion with the patient regarding the use of advanced skin substitute grafts such as Thera-skin to help with the healing process. The other option was going back to surgery for a skin graft which she would like to avoid if possible. When approved by her insurance, she will have possible 10 applications of Thera-skin over 12 weeks. Last week, 09/17/22, she had the first application of Thera-skin. Progress of Wound: Improving with good adherence of the Thera-skin. Objective Data Objective Data Vital Signs: Vital Signs Temp Pulse Resp BP O2 Del Method 97.2 F L 74 20 H 143/77 H Room Air 09/24/22 13:46 09/24/22 13:46 09/24/22 13:46 09/24/22 13:46 09/17/22 13:53 Oxygen Delivery Method Room Air Prealbumin from 08/13/22 was 27.0.? Encourage nutritional supplementation with protein to help the healing process. Lab / Micro Data Attestation: I reviewed the patient's lab results. Charges/Coding Procedures Integumentary 150xxx-152xx: 36623 Skin sub graft trnk/arm/leg (Modifier 58 ICD-10 - S70.12xA, I96, Z79.01, Z86.718, Z79.899, M06.9, S71.102A) Add On Codes: 03514 Skin sub graft t/a/l add-on ( ICD-10 - S70.12xA, I96, Z79.01, Z86.718, Z79.899, M06.9, S71.102A) Debridement Note Debridement Note Wound debrided: #1 Left distal medial thigh. Laterality: Left Wound Grade/Stage: 3. Type of Debridement: Excisional debridement Anesthesia Used: 4% Lidocaine Solution Depth: Down to and including healthy tissue, in the subcutaneous layer and to muscle Percentage of wound debrided: 100 Instrument Used: 5mm curette Tissue Removed: subcutaneous tissue and muscle Severity: Fat Layer Exposed (muscle exposed.) Amount of bleeding with debridement: Mild Bleeding Controlled with: Pressure and Compression and gauze Patient tolerated procedure: Patient tolerated procedure well (Not as painful as last week. Occasional areas really hurt. She did pretty well the rest of the time.) Post-Debridement Measurements and Additional Note: Post-Debridement Measurements/Treatment - Nurse 1 - General Ulcer Assessment Start: 08/27/22 14:14 Freq: Status: Active Protocol: LILIYA Activity Type Activity Date Activity User E-sign Co-sign Detail Recorded Client Recorded Date Recorded By Document 08/27/22 14:15 DL [id number] 08/27/22 14:25 DL Document 09/03/22 13:28 [facility] [id number] 09/03/22 13:35 [facility] Document 09/10/22 14:51 [place] [id number] 09/10/22 14:53 AK Document 09/17/22 13:53 [facility] [id number] 09/17/22 13:57 [facility] Document 09/24/22 13:46 DL [id number] 09/24/22 13:53 DL 08/27/22 09/03/22 09/10/22 14:15 13:28 14:51 - Today's Visit Information Type of service Follow-up Visit Follow-up Visit Follow-up Visit (Physician/ORIGINATION SPECIALIST (Physician/ORIGINATION SPECIALIST (Physician/ORIGINATION SPECIALIST ) ) ) Arrival Mode Wheelchair Ambulatory, Ambulatory Walker Transfer Assistance None None Accompanied by HUSB Patient Identification Verified (Name & Yes Yes No ) Patient Requires Transmission-Based No No No Precautions Vital Signs Temperature (97.8 F-99.1 F) 98.2 F 96.9 F L Temperature Source Temporal Temporal Pulse Rate (60-100) 78 77 75 Pulse Location Monitor Monitor Respiratory Rate (12-18) 22 H 16 Respiratory rate source Observation Observation Oxygen Delivery Method Room Air Blood Pressure (90/60-120/80) 128/92 H 125/64 H 118/69 Blood Pressure Mean (mm Hg) 104 84 85 Source Monitor Monitor Monitor Position Sitting Blood Pressure Location Left Arm History Since Last Visit- (Skip if this is Patient's initial visit) Have you changed medications since your No No No last visit? Any new allergies or adverse reactions No No No Had a fall/change in ADL's that may No No No increase risk of falls Signs or symptoms of abuse and/or No No No neglect since last visit Have you been in the hospital since your No No No last visit? Has dressing in place as prescribed Yes Yes Yes Has compression in place as prescribed Yes Yes Yes Has offloadiing in place as prescribed Yes N/A N/A Experienced any changes in pain level or No No No management Left Footwear Regular Shoe Regular Shoe Right Footwear Regular Shoe Regular Shoe Pain Scale: 0-10 Numeric Is Patient Pain Free? Yes Yes No 09/17/22 09/24/22 13:53 13:46 WC - Today's Visit Information Type of service Follow-up Visit Follow-up Visit (Physician/ORIGINATION SPECIALIST (Physician/ORIGINATION SPECIALIST ) ) Arrival Mode Ambulatory Ambulatory Transfer Assistance None None Accompanied by Patient Identification Verified (Name & Yes Yes ) Patient Requires Transmission-Based No No Precautions Vital Signs Temperature (97.8 F-99.1 F) 96.4 F L 97.2 F L Temperature Source Temporal Temporal Pulse Rate (60-100) 74 74 Pulse Location Monitor Monitor Respiratory Rate (12-18) 20 H 20 H Respiratory rate source Observation Oxygen Delivery Method Room Air Blood Pressure (90/60-120/80) 141/82 H 143/77 H Blood Pressure Mean (mm Hg) 101 99 Source Monitor Monitor Position Sitting Blood Pressure Location History Since Last Visit- (Skip if this is Patient's initial visit) Have you changed medications since your No No last visit? Any new allergies or adverse reactions No No Had a fall/change in ADL's that may No No increase risk of falls Signs or symptoms of abuse and/or No No neglect since last visit Have you been in the hospital since your No No last visit? Has dressing in place as prescribed Yes Yes Has compression in place as prescribed Yes Yes Has offloadiing in place as prescribed N/A N/A Experienced any changes in pain level or No No management Left Footwear Regular Shoe Right Footwear Regular Shoe Pain Scale: 0-10 Numeric Is Patient Pain Free? Yes Yes WC - Nurse 1 - General Ulcer Measurement Start: 08/27/22 14:14 Freq: Status: Active Protocol: Activity Type Activity Date Activity User E-sign Co-sign Detail Recorded Client Recorded Date Recorded By Document 08/27/22 14:15 DL [id number] 08/27/22 14:25 DL Document 09/03/22 13:28 [facility] [id number] 09/03/22 13:35 [facility] Document 09/10/22 14:51 AK [id number] 09/10/22 14:53 AK Document 09/17/22 13:53 [facility] [id number] 09/17/22 13:57 BM Document 09/24/22 13:46 DL [id number] 09/24/22 13:53 DL 08/27/22 09/03/22 09/10/22 14:15 13:28 14:51 Wound Center Nurse 1 #1 L Knee -Combined with other wound No No -Current Size (cm) - Length 8.6 8.6 8 -Current Size (cm) - Width 6.3 7.3 6.5 -Current Size (cm) - Depth 1.8 1.4 0.4 -Total Square Cm 54.18 62.78 52.0 -Date of Last Picture (Recall this 09/03/22 field) -Photo Taken No Yes No -Epithelialization Small 1-33% -Tunneling No No -Undermining/Tunneling No No -Undermining/Tunneling Starts (O'clock 8 ) -Undermining/Tunneling Ends (O'clock) 10 -Maximum Distance (cm) 1 -Circular Undermining No No -Change in Wound Grade/Stage No -Exudate Amt Medium Large Large -Exudate Type Serosanguineous Serosanguineous Serosanguineous -Wound Margin Distinct, Distinct, Distinct, Outline Outline Outline Attached Attached Attached -Granulation Amt Medium (34-66%) Large (67-100%) Large (67-100%) -Granulation Quality Red Red Red -Slough/Fibrin Yes Yes -Necrosis Amt Medium (34-66%) Small (1-33%) Small (1-33%) -Necrotic Tissue Type Adherent Slough Adherent Slough Adherent Slough -Structure Exposed N/A N/A -Texture (Jannet-wound Skin Appearance) Scarring Assessed, No Abnormality, Scarring Assessed -Moisture (Jannet-wound Skin Appearance) No Abnormality Assessed No Abnormality, Assessed -Color (Jannet-wound Skin Appearance) No Abnormality Assessed No Abnormality, Assessed -Temperature (Jannet-wound Skin No Abnormality No Abnormality No Abnormality Appearance) (Pt Warm) (Pt Warm) (Pt Warm) -Tenderness on Palpation (Jannet-wound No Yes No Skin Appearance) -Ulcer Cleansing Soap and Water Soap and Water Rinsed/ Irrigated with Saline -Foul Odor after Cleansing No Yes, Due to No Product Use -Anesthetic Used 4% Lidocaine 4% Lidocaine 4% Lidocaine Solution,5% Solution Solution,5% Lidocaine Gel Lidocaine Gel Lower Limb Edema Present Yes Left Calf (cm) 35.5 Left Ankle (cm) 20.4 09/17/22 09/24/22 13:53 13:46 Wound Center Nurse 1 #1 L Knee -Combined with other wound -Current Size (cm) - Length 6.6 -Current Size (cm) - Width 4.8 -Current Size (cm) - Depth 0.5 -Total Square Cm 31.68 -Date of Last Picture (Recall this field) -Photo Taken Yes Yes -Epithelialization -Tunneling -Undermining/Tunneling -Undermining/Tunneling Starts (O'clock ) -Undermining/Tunneling Ends (O'clock) -Maximum Distance (cm) -Circular Undermining -Change in Wound Grade/Stage -Exudate Amt Medium Medium -Exudate Type Serosanguineous Serosanguineous -Wound Margin Distinct, Distinct, Outline Outline Attached Attached -Granulation Amt Large (67-100%) None Present (0 %) -Granulation Quality Red -Slough/Fibrin -Necrosis Amt Small (1-33%) Large (67-100%) -Necrotic Tissue Type Adherent Slough Adherent Slough -Structure Exposed N/A N/A -Texture (Jannet-wound Skin Appearance) Scarring Scarring -Moisture (Jannet-wound Skin Appearance) No Abnormality No Abnormality -Color (Jannet-wound Skin Appearance) No Abnormality No Abnormality -Temperature (Jannet-wound Skin No Abnormality No Abnormality Appearance) (Pt Warm) (Pt Warm) -Tenderness on Palpation (Jannet-wound No No Skin Appearance) -Ulcer Cleansing Soap and Water Soap and Water -Foul Odor after Cleansing No No -Anesthetic Used 4% Lidocaine Solution Lower Limb Edema Present Left Calf (cm) Left Ankle (cm) WC - Nurse 2 - General Ulcer CM Notes Start: 08/27/22 14:14 Freq: Status: Active Protocol: Activity Type Activity Date Activity User E-sign Co-sign Detail Recorded Client Recorded Date Recorded By Document 08/27/22 14:31 [id number] 08/27/22 14:41 Document 09/03/22 13:56 [id number] 09/03/22 14:01 Document 09/10/22 14:38 JF [id number] 09/10/22 14:45 Document 09/17/22 14:26 MW [id number] 09/17/22 15:03 MW Edit Result 09/17/22 14:26 MW (1) [id number] 09/18/22 07:02 PL Document 09/24/22 14:36 [id number] 09/24/22 14:40 JF (1) #1 L Knee - Apply Skin Sub - each addt'l 25 sq cm => 1 - Legs 08/27/22 09/03/22 09/10/22 14:31 13:56 14:38 Wound Center Nurse 2 #1 L Knee -Time 14:37 14:00 14:41 -Correct Patient Yes Yes Yes -Correct Side, Site, Position Yes Yes Yes -Correct Procedure Yes Yes Yes -Procedure Performed Yes Yes Yes -Type of Procedure Debridement Debridement Debridement -Clinical Debridement Muscle / Fascia Muscle / Fascia Muscle / Fascia -Tissue Removed Muscle,Fascia Muscle,Fascia Muscle,Fascia -Post Debridement (cm) - Length 9.0 9.0 8.2 -Post Debridement (cm) - Width 8.0 7.4 6.8 -Post Debridement (cm) - Depth 2.4 1.8 1.3 -Total Square (Post) (cm) 72.00 66.60 55.76 -Area of Debridement (cm) - Length 9.0 9.0 8.2 -Area of Debridement (cm) - Width 8.0 7.4 6.8 -Total Square (Area) (cm) 72.00 66.60 55.76 -Tunneling No No No -Undermining/Tunneling No No No -Circular Undermining No No No -Wound/Ulcer Outcome Not Healed Not Healed Not Healed -Ulcer Cleansing Rinsed/ Rinsed/ Rinsed/ Irrigated with Irrigated with Irrigated with Saline Saline Saline -Foul Odor after Cleansing No No -Bioengineered Tissue No No No -Type of Bioengineered Tissue -Expiration Date -Product Lot Number -Percent Used -Lot number of Saline Used -Bleeding Controlled with Pressure Pressure Pressure -Treatment Response Procedure Procedure Procedure Tolerated Well Tolerated Well Tolerated Well -Offloading No No No -Debridement - Subq, 1st 20sq cm -Debridement - Muscle / Fascia, 1st Yes Yes Yes 20sq cm -Debridement, Muscle/Fascia, ea addt'l 3 3 2 20sq cm or part thereof -Apply Skin Sub - 1st 25 sq cm - Legs -Apply Skin Sub - each addt'l 25 sq cm - Legs -Theraskin (per sq cm) Pain Scale: 0-10 Numeric Is Patient Pain Free? Yes Yes Yes 09/17/22 09/24/22 14:26 14:36 Wound Center Nurse 2 #1 L Knee -Time 14:27 14:38 -Correct Patient Yes Yes -Correct Side, Site, Position Yes Yes -Correct Procedure Yes Yes -Procedure Performed Yes Yes -Type of Procedure Debridement Debridement -Clinical Debridement Muscle / Fascia Muscle / Fascia -Tissue Removed Muscle Muscle -Post Debridement (cm) - Length 7.6 6.5 -Post Debridement (cm) - Width 5.5 4.6 -Post Debridement (cm) - Depth 0.4 0.3 -Total Square (Post) (cm) 41.80 29.90 -Area of Debridement (cm) - Length 7.6 6.5 -Area of Debridement (cm) - Width 5.5 4.6 -Total Square (Area) (cm) 41.80 29.90 -Tunneling No -Undermining/Tunneling No No -Circular Undermining No No -Wound/Ulcer Outcome Not Healed Not Healed -Ulcer Cleansing Rinsed/ Rinsed/ Irrigated with Irrigated with Saline Saline -Foul Odor after Cleansing No No -Bioengineered Tissue Yes Yes -Type of Bioengineered Tissue Theraskin Theraskin -Expiration Date 07/28/26 03/04/25 -Product Lot Number [id number] -Percent Used 100 100 -Lot number of Saline Used [id number] -Bleeding Controlled with Pressure Pressure -Treatment Response Procedure Procedure Tolerated Well Tolerated Well -Offloading No No -Debridement - Subq, 1st 20sq cm No -Debridement - Muscle / Fascia, 1st No No 20sq cm -Debridement, Muscle/Fascia, ea addt'l 20sq cm or part thereof -Apply Skin Sub - 1st 25 sq cm - Legs 1 1 -Apply Skin Sub - each addt'l 25 sq cm 1 1 - Legs -Theraskin (per sq cm) 39 26 Pain Scale: 0-10 Numeric Is Patient Pain Free? Yes Yes WC - Nurse 3 - General Ulcer D/C NN Start: 08/27/22 14:14 Freq: Status: Active Protocol: Activity Type Activity Date Activity User E-sign Co-sign Detail Recorded Client Recorded Date Recorded By Document 08/27/22 15:02 DL [id number] 08/27/22 15:03 DL Document 09/03/22 14:16 DL [id number] 09/03/22 14:19 DL Document 09/10/22 14:51 [place] [id number] 09/10/22 14:53 [place] Document 09/17/22 15:09 [facility] [id number] 09/17/22 15:09 [facility] Document 09/24/22 14:52 AK [id number] 09/24/22 14:52 AK 08/27/22 09/03/22 09/10/22 15:02 14:16 14:51 Wound Care Center Nurse 3 #1 L Knee -Ulcer Cleansing Not Cleansed Rinsed/ Irrigated with Saline -Foul Odor after Cleansing No No -Negative Pressure Wound Therapy Continue Continue -Setting (mmHg) 150 125 -Negative Pressure is Continuous Continuous -Primary Dressing Applied NonAdherent Contact Layer -Other Dressing -Primary Dressing Covered/Secured with -NPWT Application Charge NPWT & NPWT & Debridement (nc Debridement (nc ) ) Left -Compression Wrap Davdi Wrap -Other Treatment Response Procedure Procedure Tolerated Well Tolerated Well Vital Signs Temperature (97.8 F-99.1 F) 96.9 F L Temperature Source Temporal Pulse Rate (60-100) 75 Pulse Location Monitor Blood Pressure (90/60-120/80) 118/69 Blood Pressure Mean (mm Hg) 85 Source Monitor Pain Scale: 0-10 Numeric Is Patient Pain Free? Yes Yes No WC - Visit Discharge Discharge Condition Stable Stable Ambulatory Status Ambulatory, Ambulatory, Wheelchair Walker Transportation Private Auto Private Auto Accompanied by family Medication Reconcilliation completed & provided to patient/care provider Clinical Summary of Care Provided Facility Type Home Health Orders Sent Yes 09/17/22 09/24/22 15:09 14:52 Wound Care Center Nurse 3 #1 L Knee -Ulcer Cleansing Not Cleansed -Foul Odor after Cleansing No -Negative Pressure Wound Therapy N/A -Setting (mmHg) -Negative Pressure is -Primary Dressing Applied -Other Dressing THERASKIN, ABD; ABD and david PER DL RATE ANALYST -Primary Dressing Covered/Secured with Dry Gauze & Roll Gauze, Secured with Tape -NPWT Application Charge Left -Compression Wrap David Wrap -Other LEFT THIGH Treatment Response Procedure Tolerated Well Vital Signs Temperature (97.8 F-99.1 F) Temperature Source Pulse Rate (60-100) Pulse Location Blood Pressure (90/60-120/80) Blood Pressure Mean (mm Hg) Source Pain Scale: 0-10 Numeric Is Patient Pain Free? Yes Yes WC - Visit Discharge Discharge Condition Stable Stable Ambulatory Status Ambulatory Ambulatory Transportation Private Auto Private Auto Accompanied by Medication Reconcilliation completed & Yes provided to patient/care provider Clinical Summary of Care Provided Yes Facility Type Orders Sent Assessment/Plan Assessment/Plan (1) Traumatic hematoma of left thigh: CODE(S): S70.12XA - Contusion of left thigh, initial encounter (2) Skin necrosis: CODE(S): I96 - Gangrene, not elsewhere classified (3) snf (current) use of anticoagulants: CODE(S): Z79.01 - watermelon inspector (current) use of anticoagulants (4) History of deep vein thrombosis: CODE(S): Z86.718 - Personal history of other venous thrombosis and embolism (5) Long-term current use of tocilizumab: CODE(S): Z79.899 - Other computer terminal operator (current) drug therapy (6) Rheumatoid arthritis: CODE(S): M06.9 - Rheumatoid arthritis, unspecified (7) Open wound of left thigh: CODE(S): S71.102A - Unspecified open wound, left thigh, initial encounter PLAN: Plan Patient has a traumatic hematoma wound left distal medial thigh. She tolerated the first Thera-skin last week, so will cancel the VAC at this time. We had discussed advanced skin substitute grafts to further heal this open surgical hematoma wound. May be able to heal the wound without going back to surgery for an autograft. She is interested. We have received medical approval for this modality. The Thera-skin is applied 10 times in a 12 week period. If the wound is not totally healed after the 10 treatments, placement of an autograft has better chance of healing because the Thera-Skin has primed the wound base. Today will be 2nd application of Thera-Skin after an adequate excisional debridement and irrigation with saline. Lot Number - [id number]. Percent used - 100%. Lot Number Saline Used - [id number]. Expiration - March 04, 2025. Amount of Thera-Skin used - 26 cm2. A wound veil was applied around the edges of the Thera-Skin followed by [place] skin tissue adhesive and Steri-strips to secure the wound veil over the Thera-Skin. This was followed by dry gauze and roll gauze and a compression david wrap. Her increased pain is expected because of her autoimmune issues. She states the Dilaudid is making the wound care more tolerable. She has enough medication at this time. In this patient I would be inclined to proceed with skin graft a little quicker than normal hoping that the pain would improve since the wound is covered with the skin graft. Also closing the wound sooner with a skin graft would be helpful for her rheumatoid arthritis. She is being treated with Tocilizumab which can delay wound healing and can worsen infections if present in the wound. Also discussed with her that when the skin graft is done, she is at increased risk of having some compromise of the skin graft during the healing process because of her decreased immune system. If that happens, she would be a candidate for HBO treatments to help salvage the skin graft. Operative culture was negative. She was treated perioperatively with Levaquin and has finished them. Prealbumin was 27.0 on 08/13/22. Encourage nutritional supplementation with protein to help the healing process. Followup one week for another Thera-skin application.
== END 2022-09-25 23:59 | disposition home or self-care (01) ==
LOC: WC 14:00
PROVIDERS: PCP Family Medicine Geriatric Medicine; Referring Provider Surgery; Visit Provider Surgery
DX: S71.102A Unspecified open wound, left thigh, initial encounter (principal); I96 Gangrene, not elsewhere classified; M06.9 Rheumatoid arthritis, unspecified; S70.12XS Contusion of left thigh, sequela; W22.8XXS Striking against or struck by other objects, sequela; Z79.01 Long term (current) use of anticoagulants; Z79.899 Other long term (current) drug therapy; Z86.718 Personal history of other venous thrombosis and embolism
CPT/HCPCS: 11043; 11046; 15271; 15272; Q4121

== ENCOUNTER 2022-10-26 15:00 | Outpatient (RCR) | payer MEDICARE, OTHER, SELFPAY ==
[2022-09-26 01:35] VITALS: BP 143/77; PULSE 74; RESP 20; TEMP 36.2
[2022-10-01 13:25] VITALS: BP 130/67; PULSE 73; TEMP 35.3
--- NOTE | 2022-10-01 15:54 | PN.PCM_ITS ---
History of Present Illness Date of Service: 10/01/22 Chief Complaint: Open surgical hematoma wound left distal medial thigh. History of Wound: 67 year old woman who is on Coumadin for history of blood clots sustained a traumatic hematoma to her left distal medial thigh on , 08/06/22, when her left thigh hit the edge of a table at lunch. Despite robert wrap compression and ice packs over the next several days, the hematoma continued to increase in size which put pressure on the overlying skin that turned necrotic. She went to surgery on 08/12/22 where she underwent surgical preparation left distal medial thigh with incision and drainage and evacuation traumatic hematoma with excisional debridement overlying skin necrosis (81 cm2). Wound care has been with the VAC at 125 mmHg continuous suction 3x per week. Operative culture - negative. Pathology - Pieces of skin and adipose tissue with focal area of hemorrhage, clinically hematoma. CT Left lower extremity - 08/06/22 - There is a subdermal mass likely a hematoma in the distal thigh anteromedially. Prealbumin from 08/13/22 was 27.0. Encourage nutritional supplementation with protein to help the healing process. Today she denies fever. She is having a little less pain with the use of Valium for the VAC dressing change. Had a discussion with the patient regarding the use of advanced skin substitute grafts such as Thera-skin to help with the healing process. The other option was going back to surgery for a skin graft which she would like to avoid if possible. When approved by her insurance, she will have possible 10 applications of Thera-skin over 12 weeks. Last week, 09/24/22, she had the 2nd application of Thera-skin. Progress of Wound: Improving with good adherence of the Thera-Skin #2. Objective Data Objective Data Vital Signs: Vital Signs Temp Pulse Resp BP 95.5 F L 73 20 H 130/67 H 10/01/22 13:25 10/01/22 13:25 09/26/22 01:35 10/01/22 13:25 Prealbumin from 08/13/22 was 27.0.? Encourage nutritional supplementation with protein to help the healing process. Lab / Micro Data Attestation: I reviewed the patient's lab results. Charges/Coding Procedures Integumentary 150xxx-152xx: 11481 Skin sub graft trnk/arm/leg (-58 Modifier ICD-10 - S70.12xA, I96, Z79.01, Z86.718, Z79.899, M06.9, S71.102A) Debridement Note Debridement Note Wound debrided: #1 Left distal medial thigh. Laterality: Left Wound Grade/Stage: 3. Type of Debridement: Excisional debridement Anesthesia Used: 4% Lidocaine Solution Depth: Down to and including healthy tissue, in the subcutaneous layer and to muscle Percentage of wound debrided: 100 Instrument Used: 5mm curette Tissue Removed: subcutaneous tissue and muscle Severity: Fat Layer Exposed (muscle exposed.) Amount of bleeding with debridement: Mild Bleeding Controlled with: Pressure and Compression and gauze Patient tolerated procedure: Patient tolerated procedure well (Not as painful as last week. Occasional areas really hurt. 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 Any new allergies or adverse reactions No Had a fall/change in ADL's that may No increase risk of falls Signs or symptoms of abuse and/or No neglect since last visit Have you been in the hospital since your No last visit? Has dressing in place as prescribed Yes Has compression in place as prescribed Yes Has offloadiing in place as prescribed N/A Experienced any changes in pain level or No management Left Footwear Regular Shoe Right Footwear Regular Shoe Pain Scale: 0-10 Numeric Is Patient Pain Free? Yes - Nurse 1 - General Ulcer Measurement Start: 10/01/22 13:20 Freq: Status: Active Protocol: Activity Type Activity Date Activity User E-sign Co-sign Detail Recorded Client Recorded Date Recorded By Document 10/01/22 13:25 MO [id number] 10/01/22 13:27 APPLE 10/01/22 13:25 Wound Center Nurse 1 #1 L Knee -Current Size (cm) - Length 6 -Current Size (cm) - Width 4 -Current Size (cm) - Depth 0.2 -Total Square Cm 24 -Photo Taken No -Tunneling No -Undermining/Tunneling No -Circular Undermining No -Change in Wound Grade/Stage No -Exudate Amt Medium -Exudate Type Serosanguineous -Wound Margin Distinct, Outline Attached -Granulation Amt Large (67-100%) -Granulation Quality Red -Slough/Fibrin Yes -Necrosis Amt Small (1-33%) -Necrotic Tissue Type Adherent Slough -Structure Exposed N/A -Texture (Jannet-wound Skin Appearance) Assessed, Scarring -Moisture (Jannet-wound Skin Appearance) No Abnormality, Assessed -Color (Jannet-wound Skin Appearance) No Abnormality, Assessed -Temperature (Jannet-wound Skin No Abnormality Appearance) (Pt Warm) -Tenderness on Palpation (Jannet-wound No Skin Appearance) -Ulcer Cleansing Soap and Water -Foul Odor after Cleansing No -Anesthetic Used 4% Lidocaine Solution - Nurse 2 - General Ulcer CM Notes Start: 10/01/22 13:20 Freq: Status: Active Protocol: Activity Type Activity Date Activity User E-sign Co-sign Detail Recorded Client Recorded Date Recorded By Document 10/01/22 14:15 WENCESLAO [id number] 10/01/22 14:22 WENCESLAO 10/01/22 14:15 Wound Center Nurse 2 -Time 14:16 -Correct Patient Yes -Correct Side, Site, Position Yes -Correct Procedure Yes -Procedure Performed Yes -Type of Procedure Debridement -Clinical Debridement Bone -Tissue Removed Muscle,Fascia -Post Debridement (cm) - Length 5.5 -Post Debridement (cm) - Width 4.0 -Post Debridement (cm) - Depth 0.2 -Total Square (Post) (cm) 22.00 -Area of Debridement (cm) - Length 5.5 -Area of Debridement (cm) - Width 4.0 -Total Square (Area) (cm) 22.00 -Tunneling No -Undermining/Tunneling No -Circular Undermining No -Wound/Ulcer Outcome Not Healed -Ulcer Cleansing Rinsed/ Irrigated with Saline -Foul Odor after Cleansing No -Bioengineered Tissue No -Bleeding Controlled with Pressure -Treatment Response Procedure Tolerated Well -Offloading No -Debridement - Muscle / Fascia, 1st No 20sq cm -Debridement - Bone, 1st 20sq cm No -Apply Skin Sub - 1st 25 sq cm - Legs 1 -Theraskin (per sq cm) 26 Pain Scale: 0-10 Numeric Is Patient Pain Free? Yes - Nurse 3 - General Ulcer D/C NN Start: 10/01/22 13:20 Freq: Status: Active Protocol: Activity Type Activity Date Activity User E-sign Co-sign Detail Recorded Client Recorded Date Recorded By Document 10/01/22 14:25 [id number] 10/01/22 14:26 10/01/22 14:25 Wound Care Center Nurse 3 #1 L Knee -Ulcer Cleansing Rinsed/ Irrigated with Saline -Primary Dressing Covered/Secured with Dry Gauze, Secured with Tape Pain Scale: 0-10 Numeric Is Patient Pain Free? Yes - Visit Discharge Discharge Condition Stable Ambulatory Status Ambulatory Transportation Private Auto Medication Reconcilliation completed & No provided to patient/care provider Clinical Summary of Care Provided Yes Assessment/Plan Assessment/Plan (1) Traumatic hematoma of left thigh: CODE(S): S70.12XA - Contusion of left thigh, initial encounter (2) Skin necrosis: CODE(S): I96 - Gangrene, not elsewhere classified (3) senior living (current) use of anticoagulants: CODE(S): Z79.01 - senior living (current) use of anticoagulants (4) History of deep vein thrombosis: CODE(S): Z86.718 - Personal history of other venous thrombosis and embolism (5) Long-term current use of tocilizumab: CODE(S): Z79.899 - Other prison (current) drug therapy (6) Rheumatoid arthritis: CODE(S): M06.9 - Rheumatoid arthritis, unspecified (7) Open wound of left thigh: CODE(S): S71.102A - Unspecified open wound, left thigh, initial encounter PLAN: Plan Patient has a traumatic hematoma wound left distal medial thigh. She tolerated the 2nd Thera-skin last week. We had discussed advanced skin substitute grafts to further heal this open surgical hematoma wound. May be able to heal the wound without going back to surgery for an autograft. She is interested. We have received medical approval for this modality. The Thera-skin is applied 10 times in a 12 week period. If the wound is not totally healed after the 10 treatments, placement of an autograft has better chance of healing because the Thera-Skin has primed the wound base. Today will be 3rd application of Thera-Skin after an adequate excisional debridement and irrigation with saline. Percent used - 100%. Amount of Thera-Skin used - 22 cm2. A wound veil was applied around the edges of the Thera-Skin followed by [address]- [place] skin tissue adhesive and Steri-strips to secure the wound veil over the Thera-Skin. This was followed by dry gauze and roll gauze and a compression robert wrap. Her increased pain is expected because of her autoimmune issues. She states the Dilaudid is making the wound care more tolerable. She has enough medication at this time. In this patient I would be inclined to proceed with skin graft a little quicker than normal hoping that the pain would improve since the wound is covered with the skin graft. Also closing the wound sooner with a skin graft would be helpful for her rheumatoid arthritis. She is being treated with Tocilizumab which can delay wound healing and can worsen infections if present in the wound. Also discussed with her that when the skin graft is done, she is at increased risk of having some compromise of the skin graft during the healing process because of her decreased immune system. If that happens, she would be a candidate for HBO treatments to help salvage the skin graft. Operative culture was negative. She was treated perioperatively with Levaquin and has finished them. Prealbumin was 27.0 on 08/13/22. Encourage nutritional supplementation with protein to help the healing process. Followup one week for another Thera-skin application.
[2022-10-08 14:18] VITALS: BP 166/74; PULSE 75; RESP 18; TEMP 36.2
--- NOTE | 2022-10-08 16:45 | PN.PCM_ITS ---
History of Present Illness Date of Service: 10/08/22 Chief Complaint: Open surgical hematoma wound left distal medial thigh. History of Wound: 67 year old woman who is on Coumadin for history of blood clots sustained a traumatic hematoma to her left distal medial thigh on , 08/06/22, when her left thigh hit the edge of a table at lunch. Despite robert wrap compression and ice packs over the next several days, the hematoma continued to increase in size which put pressure on the overlying skin that turned necrotic. She went to surgery on 08/12/22 where she underwent surgical preparation left distal medial thigh with incision and drainage and evacuation traumatic hematoma with excisional debridement overlying skin necrosis (81 cm2). Wound care has been with the VAC at 125 mmHg continuous suction 3x per week. Operative culture - negative. Pathology - Pieces of skin and adipose tissue with focal area of hemorrhage, clinically hematoma. CT Left lower extremity - 08/06/22 - There is a subdermal mass likely a hematoma in the distal thigh anteromedially. Prealbumin from 08/13/22 was 27.0. Encourage nutritional supplementation with protein to help the healing process. Today she denies fever. She is having a little less pain with the use of Valium for the VAC dressing change. Had a discussion with the patient regarding the use of advanced skin substitute grafts such as Thera-skin to help with the healing process. The other option was going back to surgery for a skin graft which she would like to avoid if possible. When approved by her insurance, she will have possible 10 applications of Thera-skin over 12 weeks. Last week, 10/01/22, she had the 3rd application of Thera-skin. Progress of Wound: Improving with good adherence of the Thera-Skin #3. Objective Data Objective Data Vital Signs: Vital Signs Temp Pulse Resp BP 97.2 F L 75 18 166/74 H 10/08/22 14:18 10/08/22 14:18 10/08/22 14:18 10/08/22 14:18 Prealbumin from 08/13/22 was 27.0.? Encourage nutritional supplementation with protein to help the healing process. Lab / Micro Data Attestation: I reviewed the patient's lab results. Charges/Coding Procedures Integumentary 150xxx-152xx: 48854 Skin sub graft trnk/arm/leg (-58 Modifier ICD-10 - S70.12xA, I96, Z79.01, Z86.718, Z79.899, M06.9, S71.102A) Debridement Note Debridement Note Wound debrided: #1 Left distal medial thigh. Laterality: Left Wound Grade/Stage: 3. Type of Debridement: Excisional debridement Anesthesia Used: 4% Lidocaine Solution Depth: Down to and including healthy tissue and in the subcutaneous layer Percentage of wound debrided: 100 Instrument Used: 5mm curette Tissue Removed: subcutaneous tissue. Severity: Fat Layer Exposed Amount of bleeding with debridement: Mild Bleeding Controlled with: Pressure and Compression and gauze Patient tolerated procedure: Patient tolerated procedure well Post-Debridement Measurements and Additional Note: Post-Debridement Measurements/Treatment WC - Nurse 1 - General Ulcer Assessment Start: 10/01/22 13:20 Freq: Status: Active Protocol: LILIYA Activity Type Activity Date Activity User E-sign Co-sign Detail Recorded Client Recorded Date Recorded By Document 10/01/22 13:25 AK [id number] 10/01/22 13:27 AK Document 10/08/22 14:18 DL [id number] 10/08/22 14:23 DL 10/01/22 10/08/22 13:25 14:18 WC - Today's Visit Information Type of service Follow-up Visit Follow-up Visit (Physician/CYTOGENETICS TECHNOLOGIST (Physician/CYTOGENETICS TECHNOLOGIST ) ) Arrival Mode Ambulatory Ambulatory Transfer Assistance None Patient Identification Verified (Name & Yes Yes ) Patient Requires Transmission-Based No Precautions Vital Signs Temperature (97.8 F-99.1 F) 95.5 F L 97.2 F L Temperature Source Temporal Temporal Pulse Rate (60-100) 73 75 Pulse Location Monitor Monitor Respiratory Rate (12-18) 18 Respiratory rate source Observation Blood Pressure (90/60-120/80) 130/67 H 166/74 H Blood Pressure Mean (mm Hg) 88 104 Source Monitor Monitor History Since Last Visit- (Skip if this is Patient's initial visit) Have you changed medications since your No No last visit? Any new allergies or adverse reactions No No Had a fall/change in ADL's that may No No increase risk of falls Signs or symptoms of abuse and/or No No neglect since last visit Have you been in the hospital since your No No last visit? Has dressing in place as prescribed Yes Yes Has compression in place as prescribed Yes Yes Has offloadiing in place as prescribed N/A N/A Experienced any changes in pain level or No No management Left Footwear Regular Shoe Right Footwear Regular Shoe Pain Scale: 0-10 Numeric Is Patient Pain Free? Yes Yes WC - Nurse 1 - General Ulcer Measurement Start: 10/01/22 13:20 Freq: Status: Active Protocol: Activity Type Activity Date Activity User E-sign Co-sign Detail Recorded Client Recorded Date Recorded By Document 10/01/22 13:25 AK [id number] 10/01/22 13:27 AK Document 10/08/22 14:18 DL [id number] 10/08/22 14:23 DL 10/01/22 10/08/22 13:25 14:18 Wound Center Nurse 1 #1 L Knee -Current Size (cm) - Length 6 5.5 -Current Size (cm) - Width 4 3.4 -Current Size (cm) - Depth 0.2 0.1 -Total Square Cm 24 18.70 -Photo Taken No -Tunneling No -Undermining/Tunneling No -Circular Undermining No -Change in Wound Grade/Stage No -Exudate Amt Medium Medium -Exudate Type Serosanguineous Serosanguineous -Wound Margin Distinct, Distinct, Outline Outline Attached Attached -Granulation Amt Large (67-100%) Large (67-100%) -Granulation Quality [place] -Slough/Fibrin Yes -Necrosis Amt Small (1-33%) Small (1-33%) -Necrotic Tissue Type Adherent Slough Adherent Slough -Structure Exposed N/A N/A -Texture (Jannet-wound Skin Appearance) Assessed, Scarring Scarring -Moisture (Jannet-wound Skin Appearance) No Abnormality, No Abnormality Assessed -Color (Jannet-wound Skin Appearance) No Abnormality, No Abnormality Assessed -Temperature (Jannet-wound Skin No Abnormality No Abnormality Appearance) (Pt Warm) (Pt Warm) -Tenderness on Palpation (Jannet-wound No No Skin Appearance) -Ulcer Cleansing Soap and Water Not Cleansed -Foul Odor after Cleansing No No -Anesthetic Used 4% Lidocaine 4% Lidocaine Solution Solution WC - Nurse 2 - General Ulcer CM Notes Start: 10/01/22 13:20 Freq: Status: Active Protocol: Activity Type Activity Date Activity User E-sign Co-sign Detail Recorded Client Recorded Date Recorded By Document 10/01/22 14:15 [id number] 10/01/22 14:22 Edit Result 10/01/22 14:15 JF (1) [id number] 10/08/22 15:05 JF Document 10/08/22 14:50 JF [id number] 10/08/22 15:04 (1) #1 L Knee - Bioengineered Tissue No => Yes - Type of Bioengineered Tissue => Theraskin - Expiration Date => 09/05/24 - Product Lot Number => [id number] - Percent Used => 100 - Lot number of Saline Used => [id number] 10/01/22 10/08/22 14:15 14:50 Wound Center Nurse 2 #1 L Knee -Time 14:16 14:52 -Correct Patient Yes Yes -Correct Side, Site, Position Yes Yes -Correct Procedure Yes Yes -Procedure Performed Yes Yes -Type of Procedure Debridement Debridement -Clinical Debridement Bone Subcutaneous -Tissue Removed Muscle,Fascia Subcutaneous -Post Debridement (cm) - Length 5.5 5.3 -Post Debridement (cm) - Width 4.0 3.3 -Post Debridement (cm) - Depth 0.2 0.2 -Total Square (Post) (cm) 22.00 17.49 -Area of Debridement (cm) - Length 5.5 5.3 -Area of Debridement (cm) - Width 4.0 3.3 -Total Square (Area) (cm) 22.00 17.49 -Tunneling No No -Undermining/Tunneling No No -Circular Undermining No No -Wound/Ulcer Outcome Not Healed Not Healed -Ulcer Cleansing Rinsed/ Rinsed/ Irrigated with Irrigated with Saline Saline -Foul Odor after Cleansing No No -Bioengineered Tissue Yes Yes -Type of Bioengineered Tissue Theraskin Theraskin -Expiration Date 09/05/24 03/05/25 -Product Lot Number [id number] -Percent Used 100 100 -Lot number of Saline Used [id number] -Bleeding Controlled with Pressure Pressure -Treatment Response Procedure Procedure Tolerated Well Tolerated Well -Offloading No No -Debridement - Subq, 1st 20sq cm No -Debridement - Muscle / Fascia, 1st No 20sq cm -Debridement - Bone, 1st 20sq cm No -Apply Skin Sub - 1st 25 sq cm - Legs 1 1 -Theraskin (per sq cm) 26 13 Pain Scale: 0-10 Numeric Is Patient Pain Free? Yes Yes - Nurse 3 - General Ulcer D/C NN Start: 10/01/22 13:20 Freq: Status: Active Protocol: Activity Type Activity Date Activity User E-sign Co-sign Detail Recorded Client Recorded Date Recorded By Document 10/01/22 14:25 [id number] 10/01/22 14:26 10/01/22 14:25 Wound Care Center Nurse 3 #1 L Knee -Ulcer Cleansing Rinsed/ Irrigated with Saline -Primary Dressing Covered/Secured with Dry Gauze, Secured with Tape Pain Scale: 0-10 Numeric Is Patient Pain Free? 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 We had discussed advanced skin substitute grafts to further heal this open surgical hematoma wound. May be able to heal the wound without going back to surgery for an autograft. She was interested. We have received medical approval for this modality. The Thera-skin is applied 10 times in a 12 week period. She tolerated the 3rd Thera-skin last week. If the wound is not totally healed after the 10 treatments, placement of an autograft has better chance of healing because the Thera-Skin has primed the wound base. Today is the 4th application of Thera-Skin after an adequate excisional debrid ement and irrigation with saline. Lot Number - [id number]. Percent used - 100%. Amount of Thera-Skin used - 13 cm2. Saline Lot Number - [id number]. Expiration - March 05, 2025. A wound veil was applied around the edges of the Thera-Skin followed by [place]- Franco skin tissue adhesive and Steri-strips to secure the wound veil over the Th era-Skin. This was followed by dry gauze and roll gauze and a compression robert wrap. Her pain has been minimal lately. She has enough medication if there is a breakthrough in the pain. In this patient I would be inclined to proceed with skin grafting a little quicker than normal hoping that the pain would improve since the wound would be covered with the skin graft. Also closing the wound sooner with a skin graft would be helpful for her rheumatoid arthritis. She is being treated with Tocilizumab which can delay wound healing and can worsen infections if present in the wound. Also discussed with her that when the skin graft is done, she is at increased risk of having some compromise of the skin graft during the healing process because of her decreased immune system. If that happens, she would be a candidate for HBO treatments to help salvage the skin graft. Operative culture was negative. She was treated perioperatively with Levaquin and has finished them. Prealbumin was 27.0 on 08/13/22. Encourage nutritional supplementation with protein to help the healing process. Followup one week for another Thera-skin application. Patient had to cancel her last immunologic therapy. She states she can feel more pain from the rheumatoid arthritis. As long as the medication is adequate, then would hold off on any immunologic therapy at this time until the wound has healed. If the medication ever becomes inadequate and the pain is unbearable, then would proceed with the immunologic therapy. It is given every 4 weeks. In this scenario, would recommend having the immunologic therapy every 8 weeks instead of every 4 weeks to give the remaining wound a chance to finish healing.
[2022-10-19 13:34] VITALS: BP 134/55; PULSE 57; RESP 16; TEMP 35.9
--- NOTE | 2022-10-19 15:50 | PCM.WC.PN ---
History of Present Illness Date of Service: 10/19/22 Chief Complaint: Open surgical hematoma wound left distal medial thigh. History of Wound: 67 year old woman who is on Coumadin for history of blood clots sustained a traumatic hematoma to her left distal medial thigh on , 08/06/22, when her left thigh hit the edge of a table at lunch. Despite robert wrap compression and ice packs over the next several days, the hematoma continued to increase in size which put pressure on the overlying skin that turned necrotic. She went to surgery on 08/12/22 where she underwent surgical preparation left distal medial thigh with incision and drainage and evacuation traumatic hematoma with excisional debridement overlying skin necrosis (81 cm2). Wound care has been with the VAC at 125 mmHg continuous suction 3x per week. Operative culture - negative. Pathology - Pieces of skin and adipose tissue with focal area of hemorrhage, clinically hematoma. CT Left lower extremity - 08/06/22 - There is a subdermal mass likely a hematoma in the distal thigh anteromedially. Prealbumin from 08/13/22 was 27.0. Encourage nutritional supplementation with protein to help the healing process. Today she denies fever. She is having a little less pain with the use of Valium for the VAC dressing change. Had a discussion with the patient regarding the use of advanced skin substitute grafts such as Thera-skin to help with the healing process. The other option was going back to surgery for a skin graft which she would like to avoid if possible. When approved by her insurance, she will have possible 10 applications of Thera-skin over 12 weeks. Last week, 10/01/22, she had the 4th application of Thera-skin. Progress of Wound: Improving with good adherence of the Thera-Skin #4. Objective Data Objective Data Vital Signs: Vital Signs Temp Pulse Resp BP O2 Del Method 96.7 F L 57 L 16 134/55 H Room Air 10/19/22 13:34 10/19/22 13:34 10/19/22 13:34 10/19/22 13:34 10/19/22 13:34 Oxygen Delivery Method Room Air Charges/Coding Procedures Integumentary 150xxx-152xx: 50960 Skin sub graft trnk/arm/leg (-58 Modifier ICD-10 - S70.12xA, I96, Z79.01, Z86.718, Z79.899, M06.9, S71.102A) Debridement Note Debridement Note Wound debrided: #1 Left distal medial thigh. Laterality: Left Wound Grade/Stage: 3. Type of Debridement: Excisional debridement Anesthesia Used: 4% Lidocaine Solution Depth: Down to and including healthy tissue and in the subcutaneous layer Percentage of wound debrided: 100 Instrument Used: 5mm curette Tissue Removed: subcutaneous tissue. Severity: Fat Layer Exposed Amount of bleeding with debridement: Mild Bleeding Controlled with: Pressure and Compression and gauze Patient tolerated procedure: Patient tolerated procedure well Post-Debridement Measurements and Additional Note: Post-Debridement Measurements/Treatment - Nurse 1 - General Ulcer Assessment Start: 10/01/22 13:20 Freq: Status: Active Protocol: LILIYA Activity Type Activity Date Activity User E-sign Co-sign Detail Recorded Client Recorded Date Recorded By Document 10/01/22 13:25 AK [id number] 10/01/22 13:27 AK Document 10/08/22 14:18 DL [id number] 10/08/22 14:23 DL Document 10/19/22 13:34 KW [id number] 10/19/22 13:46 KW 10/01/22 10/08/22 10/19/22 13:25 14:18 13:34 - Today's Visit Information Type of service Follow-up Visit Follow-up Visit Follow-up Visit (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/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 (Physician/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 (Physician/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 ) ) ) Arrival Mode Ambulatory Ambulatory Ambulatory Transfer Assistance None Accompanied by Patient Identification Verified (Name & Yes Yes Yes ) Patient Requires Transmission-Based No No Precautions Vital Signs Temperature (97.8 F-99.1 F) 95.5 F L 97.2 F L 96.7 F L Temperature Source Temporal Temporal Temporal Pulse Rate (60-100) 73 75 57 L Pulse Location Monitor Monitor Monitor Respiratory Rate (12-18) 18 16 Respiratory rate source Observation Observation Oxygen Delivery Method Room Air Blood Pressure (90/60-120/80) 130/67 H 166/74 H 134/55 H Blood Pressure Mean (mm Hg) 88 104 81 Source Monitor Monitor Monitor Position Semi-Fowlers Blood Pressure Location Left Arm History Since Last Visit- (Skip if this is Patient's initial visit) Have you changed medications since your No No No last visit? Any new allergies or adverse reactions No No No Had a fall/change in ADL's that may No No No increase risk of falls Signs or symptoms of abuse and/or No No No neglect since last visit Have you been in the hospital since your No No No last visit? Has dressing in place as prescribed Yes Yes Yes Has compression in place as prescribed Yes Yes Yes Has offloadiing in place as prescribed N/A N/A N/A Experienced any changes in pain level or No No No management Left Footwear Regular Shoe Regular Shoe Right Footwear Regular Shoe Regular Shoe Pain Scale: 0-10 Numeric Is Patient Pain Free? Yes Yes Yes WC - Nurse 1 - General Ulcer Measurement Start: 10/01/22 13:20 Freq: Status: Active Protocol: Activity Type Activity Date Activity User E-sign Co-sign Detail Recorded Client Recorded Date Recorded By Document 10/01/22 13:25 AK [id number] 10/01/22 13:27 AK Document 10/08/22 14:18 DL [id number] 10/08/22 14:23 DL Document 10/19/22 13:34 KW [id number] 10/19/22 13:46 KW 10/01/22 10/08/22 10/19/22 13:25 14:18 13:34 Wound Center Nurse 1 #1 L Knee -Current Size (cm) - Length 6 5.5 4.1 -Current Size (cm) - Width 4 3.4 2.5 -Current Size (cm) - Depth 0.2 0.1 0.1 -Total Square Cm 24 18.70 10.25 -Date of Last Picture (Recall this 10/19/22 field) -Photo Taken No Yes -Tunneling No No -Undermining/Tunneling No No -Circular Undermining No No -Change in Wound Grade/Stage No -Exudate Amt Medium Medium Small -Exudate Type Serosanguineous Serosanguineous Serosanguineous -Wound Margin Distinct, Distinct, Distinct, Outline Outline Outline Attached Attached Attached -Granulation Amt Large (67-100%) Large (67-100%) Large (67-100%) -Granulation Quality Red [place] Red -Slough/Fibrin Yes -Necrosis Amt Small (1-33%) Small (1-33%) Small (1-33%) -Necrotic Tissue Type Adherent Slough Adherent Slough Adherent Slough -Structure Exposed N/A N/A -Texture (Jannet-wound Skin Appearance) Assessed, Scarring Assessed Scarring -Moisture (Jannet-wound Skin Appearance) No Abnormality, No Abnormality Assessed Assessed -Color (Jannet-wound Skin Appearance) No Abnormality, No Abnormality Assessed Assessed -Temperature (Jannet-wound Skin No Abnormality No Abnormality No Abnormality Appearance) (Pt Warm) (Pt Warm) (Pt Warm) -Tenderness on Palpation (Jannet-wound No No Skin Appearance) -Ulcer Cleansing Soap and Water Not Cleansed Soap and Water -Foul Odor after Cleansing No No No -Anesthetic Used 4% Lidocaine 4% Lidocaine 5% Lidocaine Solution Solution Gel Lower Limb Edema Present NA WC - Nurse 2 - General Ulcer CM Notes Start: 10/01/22 13:20 Freq: Status: Active Protocol: Activity Type Activity Date Activity User E-sign Co-sign Detail Recorded Client Recorded Date Recorded By Document 10/01/22 14:15 JF [id number] 10/01/22 14:22 JF Edit Result 10/01/22 14:15 JF (1) [id number] 10/08/22 15:05 JF Document 10/08/22 14:50 JF [id number] 10/08/22 15:04 JF Document 10/19/22 14:24 MW [id number] 10/19/22 14:35 MW (1) #1 L Knee - Bioengineered Tissue No => Yes - Type of Bioengineered Tissue => Theraskin - Expiration Date => 09/05/24 - Product Lot Number => [id number] - Percent Used => 100 - Lot number of Saline Used => [id number] 10/01/22 10/08/22 10/19/22 14:15 14:50 14:24 Wound Center Nurse 2 #1 L Knee -Time 14:16 14:52 14:32 -Correct Patient Yes Yes Yes -Correct Side, Site, Position Yes Yes Yes -Correct Procedure Yes Yes Yes -Procedure Performed Yes Yes Yes -Type of Procedure Debridement Debridement Debridement -Clinical Debridement Bone Subcutaneous Subcutaneous -Tissue Removed Muscle,Fascia Subcutaneous Subcutaneous -Post Debridement (cm) - Length 5.5 5.3 4.2 -Post Debridement (cm) - Width 4.0 3.3 2.5 -Post Debridement (cm) - Depth 0.2 0.2 0.1 -Total Square (Post) (cm) 22.00 17.49 10.50 -Area of Debridement (cm) - Length 5.5 5.3 4.2 -Area of Debridement (cm) - Width 4.0 3.3 2.5 -Total Square (Area) (cm) 22.00 17.49 10.50 -Tunneling No No No -Undermining/Tunneling No No No -Circular Undermining No No No -Wound/Ulcer Outcome Not Healed Not Healed Not Healed -Ulcer Cleansing Rinsed/ Rinsed/ Rinsed/ Irrigated with Irrigated with Irrigated with Saline Saline Saline -Foul Odor after Cleansing No No No -Bioengineered Tissue Yes Yes Yes -Type of Bioengineered Tissue Theraskin Theraskin Theraskin -Expiration Date 09/05/24 03/05/25 03/05/25 -Product Lot Number [id number] -Percent Used 100 100 100 -Lot number of Saline Used [id number] -Bleeding Controlled with Pressure Pressure Pressure -Treatment Response Procedure Procedure Procedure Tolerated Well Tolerated Well Tolerated Well -Offloading No No No -Debridement - Subq, 1st 20sq cm No No -Debridement - Muscle / Fascia, 1st No 20sq cm -Debridement - Bone, 1st 20sq cm No -Apply Skin Sub - 1st 25 sq cm - Legs 1 1 1 -Theraskin (per sq cm) 26 13 13 Pain Scale: 0-10 Numeric Is Patient Pain Free? Yes Yes Yes - Nurse 3 - General Ulcer D/C NN Start: 10/01/22 13:20 Freq: Status: Active Protocol: Activity Type Activity Date Activity User E-sign Co-sign Detail Recorded Client Recorded Date Recorded By Document 10/01/22 14:25 KW [id number] 10/01/22 14:26 KW Document 10/19/22 14:42 [id number] 10/19/22 14:42 KW 10/01/22 10/19/22 14:25 14:42 Wound Care Center Nurse 3 #1 L Knee -Ulcer Cleansing Rinsed/ Rinsed/ Irrigated with Irrigated with Saline Saline -Primary Dressing Covered/Secured with Dry Gauze, Dry Gauze & Secured with Roll Gauze, Tape Secured with Tape Pain Scale: 0-10 Numeric Is Patient Pain Free? 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 We had discussed advanced skin substitute grafts to further heal this open surgical hematoma wound. May be able to heal the wound without going back to surgery for an autograft. She was interested. We have received medical approval for this modality. The Thera-skin is applied 10 times in a 12 week period. She tolerated the 4th Thera-skin last week. If the wound is not totally healed after the 10 treatments, placement of an autograft has better chance of healing because the Thera-Skin has primed the wound base. Today is the 4th application of Thera-Skin after an adequate excisional debridement and irrigation with saline. Lot Number - [id number] Percent used - 100%. Amount of Thera-Skin used - 13 cm2. Saline Lot Number - [id number]. Expiration - March 05, 2025. The Thera-Skin was secured with Sparkman-Franco skin tissue adhesive and Steri-strips, topped with a wound veil that was secured with Steri-strips. This was followed by dry gauze and roll gauze and a compression robert wrap. Her pain has been minimal lately. She has not needed anything for pain. In this patient I would be inclined to proceed with skin grafting a little quicker than normal hoping that the pain would improve since the wound would be covered with the skin graft. Also closing the wound sooner with a skin graft would be helpful for her rheumatoid arthritis. She is being treated with Tocilizumab which can delay wound healing and can worsen infections if present in the wound. Also discussed with her that when the skin graft is done, she is at increased risk of having some compromise of the skin graft during the healing process because of her decreased immune system. If that happens, she would be a candidate for HBO treatments to help salvage the skin graft. Operative culture was negative. She was treated perioperatively with Levaquin and has finished them. Prealbumin was 27.0 on 08/13/22. Encourage nutritional supplementation with protein to help the healing process. Followup one week for another Thera-skin application. Patient had to cancel her last immunologic therapy. She states she can feel more pain from the rheumatoid arthritis. As long as the medication is adequate, then would hold off on any immunologic therapy at this time until the wound has healed. If the medication ever becomes inadequate and the pain is unbearable, then would proceed with the immunologic therapy. It is given every 4 weeks. In this scenario, would recommend having the immunologic therapy every 8 weeks instead of every 4 weeks to give the remaining wound a chance to finish healing.
[2022-10-26 15:01] VITALS: BP 114/52; PULSE 61; RESP 20; TEMP 36.5
--- NOTE | 2022-10-26 17:33 | PCM.WC.PN ---
History of Present Illness Date of Service: 10/26/22 Chief Complaint: Open surgical hematoma wound left distal medial thigh. History of Wound: 67 year old woman who is on Coumadin for history of blood clots sustained a traumatic hematoma to her left distal medial thigh on , 08/06/22, when her left thigh hit the edge of a table at lunch. Despite robert wrap compression and ice packs over the next several days, the hematoma continued to increase in size which put pressure on the overlying skin that turned necrotic. She went to surgery on 08/12/22 where she underwent surgical preparation left distal medial thigh with incision and drainage and evacuation traumatic hematoma with excisional debridement overlying skin necrosis (81 cm2). Wound care had been with the VAC. at 125 mmHg continuous suction 3x per week. Operative culture - negative. Now we are placing Thera-Skin advanced skin substitute graft. Thus far we have placed 5 applications. Pathology - Pieces of skin and adipose tissue with focal area of hemorrhage, clinically hematoma. CT Left lower extremity - 08/06/22 - There is a subdermal mass likely a hematoma in the distal thigh anteromedially. Prealbumin from 08/13/22 was 27.0. Encourage nutritional supplementation with protein to help the healing process. Today she denies fever. Had a discussion with the patient regarding the use of advanced skin substitute grafts such as Thera-skin to help with the healing process. The other option was going back to surgery for a skin graft which she would like to avoid if possible. When approved by her insurance, she will have possible 10 applications of Thera-skin over 12 weeks. Last week, 10/19/22, she had the 5th application of Thera-skin. Progress of Wound: Improving with good adherence of the Thera-Skin #5. Objective Data Objective Data Vital Signs: Vital Signs Temp Pulse Resp BP O2 Del Method 97.7 F L 61 20 H 114/52 L Room Air 10/26/22 15:01 10/26/22 15:01 10/26/22 15:01 10/26/22 15:01 10/19/22 13:34 Oxygen Delivery Method Room Air Prealbumin was 27.0 on 08/13/22. Encourage nutritional supplementation with protein to help the healing process. Lab / Micro Data Attestation: I reviewed the patient's lab results. Charges/Coding Procedures Integumentary 150xxx-152xx: 25803 Skin sub graft trnk/arm/leg (58 Modifier ICD-10 - S71.102A, S70,12xA, I96, Z79.01, Z86.718, Z79.899, M06.9) Debridement Note Debridement Note Wound debrided: #1 Left distal medial thigh. Laterality: Left Wound Grade/Stage: 3. Type of Debridement: Excisional debridement Anesthesia Used: 5% Lidocaine Gel Depth: Down to and including healthy tissue and in the subcutaneous layer Percentage of wound debrided: 100 Instrument Used: 5mm curette Tissue Removed: subcutaneous tissue. Severity: Fat Layer Exposed Amount of bleeding with debridement: Mild Bleeding Controlled with: Pressure and Compression and gauze Patient tolerated procedure: Patient tolerated procedure well Post-Debridement Measurements and Additional Note: Post-Debridement Measurements/Treatment - Nurse 1 - General Ulcer Assessment Start: 10/01/22 13:20 Freq: Status: Active Protocol: LILIYA Activity Type Activity Date Activity User E-sign Co-sign Detail Recorded Client Recorded Date Recorded By Document 10/01/22 13:25 AK [id number] 10/01/22 13:27 AK Document 10/08/22 14:18 DL [id number] 10/08/22 14:23 DL Document 10/19/22 13:34 KW [id number] 10/19/22 13:46 KW Document 10/26/22 15:01 DL [id number] 10/26/22 15:07 DL 10/01/22 10/08/22 10/19/22 13:25 14:18 13:34 - Today's Visit Information Type of service Follow-up Visit Follow-up Visit Follow-up Visit (Physician/CREDIT CARD CONTROL CLERK (Physician/CREDIT CARD CONTROL CLERK (Physician/CREDIT CARD CONTROL CLERK ) ) ) Arrival Mode Ambulatory Ambulatory Ambulatory Transfer Assistance None Accompanied by Patient Identification Verified (Name & Yes Yes Yes ) Patient Requires Transmission-Based No No Precautions Vital Signs Temperature (97.8 F-99.1 F) 95.5 F L 97.2 F L 96.7 F L Temperature Source Temporal Temporal Temporal Pulse Rate (60-100) 73 75 57 L Pulse Location Monitor Monitor Monitor Respiratory Rate (12-18) 18 16 Respiratory rate source Observation Observation Oxygen Delivery Method Room Air Blood Pressure (90/60-120/80) 130/67 H 166/74 H 134/55 H Blood Pressure Mean (mm Hg) 88 104 81 Source Monitor Monitor Monitor Position Semi-Fowlers Blood Pressure Location Left Arm History Since Last Visit- (Skip if this is Patient's initial visit) Have you changed medications since your No No No last visit? Any new allergies or adverse reactions No No No Had a fall/change in ADL's that may No No No increase risk of falls Signs or symptoms of abuse and/or No No No neglect since last visit Have you been in the hospital since your No No No last visit? Has dressing in place as prescribed Yes Yes Yes Has compression in place as prescribed Yes Yes Yes Has offloadiing in place as prescribed N/A N/A N/A Experienced any changes in pain level or No No No management Left Footwear Regular Shoe Regular Shoe Right Footwear Regular Shoe Regular Shoe Pain Scale: 0-10 Numeric Is Patient Pain Free? Yes Yes Yes 10/26/22 15:01 WC - Today's Visit Information Type of service Follow-up Visit (Physician/CREDIT CARD CONTROL CLERK ) Arrival Mode Ambulatory Transfer Assistance None Accompanied by Patient Identification Verified (Name & Yes ) Patient Requires Transmission-Based No Precautions Vital Signs Temperature (97.8 F-99.1 F) 97.7 F L Temperature Source Temporal Pulse Rate (60-100) 61 Pulse Location Monitor Respiratory Rate (12-18) 20 H Respiratory rate source Oxygen Delivery Method Blood Pressure (90/60-120/80) 114/52 L Blood Pressure Mean (mm Hg) 72 Source Monitor Position Blood Pressure Location History Since Last Visit- (Skip if this is Patient's initial visit) Have you changed medications since your No last visit? Any new allergies or adverse reactions No Had a fall/change in ADL's that may No increase risk of falls Signs or symptoms of abuse and/or No neglect since last visit Have you been in the hospital since your No last visit? Has dressing in place as prescribed Yes Has compression in place as prescribed Yes Has offloadiing in place as prescribed N/A Experienced any changes in pain level or No management Left Footwear Right Footwear Pain Scale: 0-10 Numeric Is Patient Pain Free? Yes WC - Nurse 1 - General Ulcer Measurement Start: 10/01/22 13:20 Freq: Status: Active Protocol: Activity Type Activity Date Activity User E-sign Co-sign Detail Recorded Client Recorded Date Recorded By Document 10/01/22 13:25 AK [id number] 10/01/22 13:27 AK Document 10/08/22 14:18 DL [id number] 10/08/22 14:23 DL Document 10/19/22 13:34 KW [id number] 10/19/22 13:46 KW Document 10/26/22 15:01 DL [id number] 10/26/22 15:07 DL 10/01/22 10/08/22 10/19/22 13:25 14:18 13:34 Wound Center Nurse 1 #1 L Knee -Current Size (cm) - Length 6 5.5 4.1 -Current Size (cm) - Width 4 3.4 2.5 -Current Size (cm) - Depth 0.2 0.1 0.1 -Total Square Cm 24 18.70 10.25 -Date of Last Picture (Recall this 10/19/22 field) -Photo Taken No Yes -Tunneling No No -Undermining/Tunneling No No -Circular Undermining No No -Change in Wound Grade/Stage No -Exudate Amt Medium Medium Small -Exudate Type Serosanguineous Serosanguineous Serosanguineous -Wound Margin Distinct, Distinct, Distinct, Outline Outline Outline Attached Attached Attached -Granulation Amt Large (67-100%) Large (67-100%) Large (67-100%) -Granulation Quality Red Lopeno Red -Slough/Fibrin Yes -Necrosis Amt Small (1-33%) Small (1-33%) Small (1-33%) -Necrotic Tissue Type Adherent Slough Adherent Slough Adherent Slough -Structure Exposed N/A N/A -Texture (Jannet-wound Skin Appearance) Assessed, Scarring Assessed Scarring -Moisture (Jannet-wound Skin Appearance) No Abnormality, No Abnormality Assessed Assessed -Color (Jannet-wound Skin Appearance) No Abnormality, No Abnormality Assessed Assessed -Temperature (Jannet-wound Skin No Abnormality No Abnormality No Abnormality Appearance) (Pt Warm) (Pt Warm) (Pt Warm) -Tenderness on Palpation (Jannet-wound No No Skin Appearance) -Ulcer Cleansing Soap and Water Not Cleansed Soap and Water -Foul Odor after Cleansing No No No -Anesthetic Used 4% Lidocaine 4% Lidocaine 5% Lidocaine Solution Solution Gel Lower Limb Edema Present NA 10/26/22 15:01 Wound Center Nurse 1 #1 L Knee -Current Size (cm) - Length 4 -Current Size (cm) - Width 2.8 -Current Size (cm) - Depth 0.1 -Total Square Cm 11.2 -Date of Last Picture (Recall this field) -Photo Taken -Tunneling -Undermining/Tunneling -Circular Undermining -Change in Wound Grade/Stage -Exudate Amt Small -Exudate Type Serosanguineous -Wound Margin Distinct, Outline Attached -Granulation Amt Medium (34-66%) -Granulation Quality Red -Slough/Fibrin -Necrosis Amt Medium (34-66%) -Necrotic Tissue Type Adherent Slough -Structure Exposed N/A -Texture (Jannet-wound Skin Appearance) Scarring -Moisture (Jannet-wound Skin Appearance) No Abnormality -Color (Jannet-wound Skin Appearance) No Abnormality -Temperature (Jannet-wound Skin No Abnormality Appearance) (Pt Warm) -Tenderness on Palpation (Jannet-wound No Skin Appearance) -Ulcer Cleansing Soap and Water -Foul Odor after Cleansing No -Anesthetic Used 5% Lidocaine Gel Lower Limb Edema Present WC - Nurse 2 - General Ulcer CM Notes Start: 10/01/22 13:20 Freq: Status: Active Protocol: Activity Type Activity Date Activity User E-sign Co-sign Detail Recorded Client Recorded Date Recorded By Document 10/01/22 14:15 JF [id number] 10/01/22 14:22 JF Edit Result 10/01/22 14:15 JF (1) [id number] 10/08/22 15:05 JF Document 10/08/22 14:50 JF [id number] 10/08/22 15:04 JF Document 10/19/22 14:24 MW [id number] 10/19/22 14:35 MW Document 10/26/22 15:31 JF [id number] 10/26/22 15:39 JF (1) #1 L Knee - Bioengineered Tissue No => Yes - Type of Bioengineered Tissue => Theraskin - Expiration Date => 09/05/24 - Product Lot Number => [id number] - Percent Used => 100 - Lot number of Saline Used => [id number] 10/01/22 10/08/22 10/19/22 14:15 14:50 14:24 Wound Center Nurse 2 #1 L Knee -Time 14:16 14:52 14:32 -Correct Patient Yes Yes Yes -Correct Side, Site, Position Yes Yes Yes -Correct Procedure Yes Yes Yes -Procedure Performed Yes Yes Yes -Type of Procedure Debridement Debridement Debridement -Clinical Debridement Bone Subcutaneous Subcutaneous -Tissue Removed Muscle,Fascia Subcutaneous Subcutaneous -Post Debridement (cm) - Length 5.5 5.3 4.2 -Post Debridement (cm) - Width 4.0 3.3 2.5 -Post Debridement (cm) - Depth 0.2 0.2 0.1 -Total Square (Post) (cm) 22.00 17.49 10.50 -Area of Debridement (cm) - Length 5.5 5.3 4.2 -Area of Debridement (cm) - Width 4.0 3.3 2.5 -Total Square (Area) (cm) 22.00 17.49 10.50 -Tunneling No No No -Undermining/Tunneling No No No -Circular Undermining No No No -Wound/Ulcer Outcome Not Healed Not Healed Not Healed -Ulcer Cleansing Rinsed/ Rinsed/ Rinsed/ Irrigated with Irrigated with Irrigated with Saline Saline Saline -Foul Odor after Cleansing No No No -Bioengineered Tissue Yes Yes Yes -Type of Bioengineered Tissue Theraskin Theraskin Theraskin -Expiration Date 09/05/24 03/05/25 03/05/25 -Product Lot Number [id number] -Percent Used 100 100 100 -Lot number of Saline Used [id number] -Bleeding Controlled with Pressure Pressure Pressure -Treatment Response Procedure Procedure Procedure Tolerated Well Tolerated Well Tolerated Well -Offloading No No No -Debridement - Subq, 1st 20sq cm No No -Debridement - Muscle / Fascia, 1st No 20sq cm -Debridement - Bone, 1st 20sq cm No -Apply Skin Sub - 1st 25 sq cm - Legs 1 1 1 -Theraskin (per sq cm) 26 13 13 Pain Scale: 0-10 Numeric Is Patient Pain Free? Yes Yes Yes 10/26/22 15:31 Wound Center Nurse 2 #1 L Knee -Time 15:31 -Correct Patient Yes -Correct Side, Site, Position Yes -Correct Procedure Yes -Procedure Performed Yes -Type of Procedure Debridement -Clinical Debridement Subcutaneous -Tissue Removed Subcutaneous -Post Debridement (cm) - Length 3.5 -Post Debridement (cm) - Width 2.4 -Post Debridement (cm) - Depth 0.1 -Total Square (Post) (cm) 8.40 -Area of Debridement (cm) - Length 3.5 -Area of Debridement (cm) - Width 2.4 -Total Square (Area) (cm) 8.40 -Tunneling No -Undermining/Tunneling No -Circular Undermining No -Wound/Ulcer Outcome Not Healed -Ulcer Cleansing Rinsed/ Irrigated with Saline -Foul Odor after Cleansing No -Bioengineered Tissue Yes -Type of Bioengineered Tissue Theraskin -Expiration Date 03/12/25 -Product Lot Number [id number] -Percent Used 100 -Lot number of Saline Used [id number] -Bleeding Controlled with Pressure -Treatment Response Procedure Tolerated Well -Offloading No -Debridement - Subq, 1st 20sq cm No -Debridement - Muscle / Fascia, 1st 20sq cm -Debridement - Bone, 1st 20sq cm -Apply Skin Sub - 1st 25 sq cm - Legs 1 -Theraskin (per sq cm) 6 Pain Scale: 0-10 Numeric Is Patient Pain Free? Yes - Nurse 3 - General Ulcer D/C NN Start: 10/01/22 13:20 Freq: Status: Active Protocol: Activity Type Activity Date Activity User E-sign Co-sign Detail Recorded Client Recorded Date Recorded By Document 10/01/22 14:25 [id number] 10/01/22 14:26 KW Document 10/19/22 14:42 [id number] 10/19/22 14:42 Document 10/26/22 15:50 [id number] 10/26/22 15:51 10/01/22 10/19/22 10/26/22 14:25 14:42 15:50 Wound Care Center Nurse 3 #1 L Knee -Ulcer Cleansing Rinsed/ Rinsed/ Rinsed/ Irrigated with Irrigated with Irrigated with Saline Saline Saline -Primary Dressing Applied Mepilex Border -Primary Dressing Covered/Secured with Dry Gauze, Dry Gauze & Secured with Roll Gauze, Tape Secured with Tape -Mepilex Border 1 Pain Scale: 0-10 Numeric Is Patient Pain Free? Yes Yes Yes WC - Visit Discharge Discharge Condition Stable Stable Stable Ambulatory Status Ambulatory Ambulatory Ambulatory Transportation Private Auto Private Auto Private Auto Medication Reconcilliation completed & No No Yes provided to patient/care provider Clinical Summary of Care Provided Yes Yes Yes Assessment/Plan Assessment/Plan (1) Open wound of left thigh: CODE(S): S71.102A - Unspecified open wound, left thigh, initial encounter (2) Traumatic hematoma of left thigh: CODE(S): S70.12XA - Contusion of left thigh, initial encounter (3) Skin necrosis: CODE(S): I96 - Gangrene, not elsewhere classified (4) long-term (current) use of anticoagulants: CODE(S): Z79.01 - long-term (current) use of anticoagulants (5) History of deep vein thrombosis: CODE(S): Z86.718 - Personal history of other venous thrombosis and embolism (6) Long-term current use of tocilizumab: CODE(S): Z79.899 - Other usp (current) drug therapy (7) Rheumatoid arthritis: CODE(S): M06.9 - Rheumatoid arthritis, unspecified PLAN: Plan Patient has a traumatic hematoma wound left distal medial thigh. We had discussed advanced skin substitute grafts to further heal this open surgical hematoma wound. May be able to heal the wound without going back to surgery for an autograft. She was interested. We have received medical approval for this modality. The Thera-skin is applied 10 times in a 12 week period. She tolerated the 5th Thera-skin last week. If the wound is not totally healed after the 10 treatments, placement of an autograft has better chance of healing because the Thera-Skin has primed the wound base. Operative culture was negative. She was treated perioperatively with Levaquin and has finished them. Prealbumin was 27.0 on 08/13/22. Encourage nutritional supplementation with protein to help the healing process. Today is the 6th application of Thera-Skin after an adequate excisional debridement and irrigation with saline. Lot Number - [id number]. Percent used - 100%. Amount of Thera-Skin used - 6 cm2. Saline Lot Number - [id number]. Expiration - March 12, 2025. The Thera-Skin was secured with Seaside-Franco skin tissue adhesive and Steri-strips, topped with a wound veil that was secured with Steri-strips. This was followed by Mepilex border dressing and a compression robert wrap. Her pain has been minimal lately. She has not needed anything for pain. In this patient I was inclined to proceed with skin grafting a little quicker than normal hoping that the pain would improve since the wound would be covered with the skin graft. Also closing the wound sooner with a skin graft would be helpful for her rheumatoid arthritis. She is being treated with Tocilizumab which can delay wound healing and can worsen infections if present in the wound. Followup one week for another Thera-skin application. Patient had to cancel her last immunologic therapy. She states she can feel more pain from the rheumatoid arthritis. As long as the medication is adequate, then would hold off on any immunologic therapy at this time until the wound has healed. If the medication ever becomes inadequate and the pain is unbearable, then would proceed with the immunologic therapy. It is given every 4 weeks. In this scenario, would recommend having the immunologic therapy every 8 weeks instead of every 4 weeks to give the remaining wound a chance to finish healing.
== END 2022-10-26 23:59 | disposition home or self-care (01) ==
LOC: WC 15:00
PROVIDERS: PCP Family Medicine Geriatric Medicine; Referring Provider Surgery; Visit Provider Surgery
DX: S71.102A Unspecified open wound, left thigh, initial encounter (principal); I96 Gangrene, not elsewhere classified; M06.9 Rheumatoid arthritis, unspecified; S70.12XS Contusion of left thigh, sequela; Z79.01 Long term (current) use of anticoagulants; Z79.899 Other long term (current) drug therapy; Z86.718 Personal history of other venous thrombosis and embolism
CPT/HCPCS: 15271; Q4121

== ENCOUNTER 2022-11-23 13:45 | Outpatient (RCR) | payer MEDICARE, OTHER, SELFPAY ==
[2022-10-27 00:38] VITALS: BP 114/52; PULSE 61; RESP 20; TEMP 36.5
[2022-11-02 13:49] VITALS: BP 149/68; PULSE 70; RESP 16; TEMP 36
--- NOTE | 2022-11-02 16:33 | PN.PCM_ITS ---
History of Present Illness Date of Service: 11/02/22 Chief Complaint: Open surgical hematoma wound left distal medial thigh. History of Wound: 67 year old woman who is on Coumadin for history of blood clots sustained a traumatic hematoma to her left distal medial thigh on , 08/06/22, when her left thigh hit the edge of a table at lunch. Despite robert wrap compression and ice packs over the next several days, the hematoma continued to increase in size which put pressure on the overlying skin that turned necrotic. She went to surgery on 08/12/22 where she underwent surgical preparation left distal medial thigh with incision and drainage and evacuation traumatic hematoma with excisional debridement overlying skin necrosis (81 cm2). Wound care has been with the VAC at 125 mmHg continuous suction 3x per week. And now we are applying Thera-skin. 6 applications thus far. Operative culture - negative. Pathology - Pieces of skin and adipose tissue with focal area of hemorrhage, clinically hematoma. CT Left lower extremity - 08/06/22 - There is a subdermal mass likely a hematoma in the distal thigh anteromedially. Prealbumin from 08/13/22 was 27.0. Encourage nutritional supplementation with protein to help the healing process. Today she denies fever. She is having a little less pain with the use of Valium for the VAC dressing change. Had a discussion with the patient regarding the use of advanced skin substitute grafts such as Thera-skin to help with the healing process. The other option was going back to surgery for a skin graft which she would like to avoid if possible. When approved by her insurance, she will have possible 10 applications of Thera-skin over 12 weeks. Last week, 10/26/22, she had the 6th application of Thera-skin. Progress of Wound: Improving with good adherence after Thera-Skin #6. Objective Data Objective Data Vital Signs: Vital Signs Temp Pulse Resp BP O2 Del Method 96.8 F L 70 16 149/68 H Room Air 11/02/22 13:49 11/02/22 13:49 11/02/22 13:49 11/02/22 13:49 11/02/22 13:49 Oxygen Delivery Method Room Air Prealbumin was 27.0 on 08/13/22. Encourage nutritional supplementation with pro tein to help the healing process. Lab / Micro Data Attestation: I reviewed the patient's lab results. Charges/Coding Procedures Integumentary 150xxx-152xx: 48645 Skin sub graft trnk/arm/leg (58 Modifier ICD-10 - S71.102A, S70.12xA, I96, Z79.01, Z86.718, Z79.899, M06.9) Debridement Note Debridement Note Wound debrided: #1 Left distal medial thigh. Laterality: Left Wound Grade/Stage: 3. Type of Debridement: Excisional debridement Anesthesia Used: 5% Lidocaine Gel Depth: Down to and including healthy tissue and in the subcutaneous layer Percentage of wound debrided: 100 Instrument Used: 5mm curette Tissue Removed: subcutaneous tissue. Severity: Fat Layer Exposed Amount of bleeding with debridement: Mild Bleeding Controlled with: Pressure and Compression and gauze Patient tolerated procedure: Patient tolerated procedure well Post-Debridement Measurements and Additional Note: Post-Debridement Measurements/Treatment - Nurse 1 - General Ulcer Assessment Start: 11/02/22 13:48 Freq: Status: Active Protocol: LILIYA Activity Type Activity Date Activity User E-sign Co-sign Detail Recorded Client Recorded Date Recorded By Document 11/02/22 13:49 [facility] [id number] 11/02/22 13:57 [facility] 11/02/22 13:49 - Today's Visit Information Type of service Follow-up Visit (Physician/RETAIL BANKING MANAGER ) Arrival Mode Ambulatory Transfer Assistance None Accompanied by Patient Identification Verified (Name & Yes ) Patient Requires Transmission-Based No Precautions Vital Signs Temperature (97.8 F-99.1 F) 96.8 F L Temperature Source Temporal Pulse Rate (60-100) 70 Pulse Location Monitor Respiratory Rate (12-18) 16 Respiratory rate source Observation Oxygen Delivery Method Room Air Blood Pressure (90/60-120/80) 149/68 H Blood Pressure Mean (mm Hg) 95 Source Monitor Position Sitting Blood Pressure Location Left Arm History Since Last Visit- (Skip if this is Patient's initial visit) Have you changed medications since your No last visit? Any new allergies or adverse reactions No Had a fall/change in ADL's that may No increase risk of falls Signs or symptoms of abuse and/or No neglect since last visit Have you been in the hospital since your No last visit? Has dressing in place as prescribed Yes Has compression in place as prescribed Yes Has offloadiing in place as prescribed N/A Experienced any changes in pain level or No management Left Footwear Regular Shoe Right Footwear Regular Shoe Pain Scale: 0-10 Numeric Is Patient Pain Free? Yes - Nurse 1 - General Ulcer Measurement Start: 11/02/22 13:48 Freq: Status: Active Protocol: Activity Type Activity Date Activity User E-sign Co-sign Detail Recorded Client Recorded Date Recorded By Document 11/02/22 13:49 [facility] [id number] 11/02/22 13:57 [facility] 11/02/22 13:49 Wound Center Nurse 1 #1 L Knee -Combined with other wound No -Current Size (cm) - Length 0.1 -Current Size (cm) - Width 0.1 -Current Size (cm) - Depth 0.1 -Total Square Cm 0.01 -Date of Last Picture (Recall this 11/02/22 field) -Photo Taken Yes -Tunneling No -Undermining/Tunneling No -Circular Undermining No -Exudate Amt Medium -Exudate Type Serosanguineous -Wound Margin Distinct, Outline Attached -Granulation Amt Small (1-33%) -Granulation Quality Red -Slough/Fibrin Yes -Necrosis Amt Large (67-100%) -Necrotic Tissue Type Adherent Slough -Texture (Jannet-wound Skin Appearance) Assessed, Scarring -Moisture (Jannet-wound Skin Appearance) Assessed -Color (Jannet-wound Skin Appearance) Assessed -Temperature (Jannet-wound Skin No Abnormality Appearance) (Pt Warm) -Tenderness on Palpation (Jannet-wound No Skin Appearance) -Ulcer Cleansing Soap and Water -Foul Odor after Cleansing No -Anesthetic Used 5% Lidocaine Gel -Wound Comment(s) THERASKIN LEFT ON FOR FLORAL ASSOCIATE TO REMOVE. - Nurse 2 - General Ulcer CM Notes Start: 11/02/22 13:48 Freq: Status: Active Protocol: Activity Type Activity Date Activity User E-sign Co-sign Detail Recorded Client Recorded Date Recorded By Document 11/02/22 14:13 [id number] 11/02/22 14:20 [email or web address] 11/02/22 14:13 Wound Center Nurse 2 -Time 14:13 -Correct Patient Yes -Correct Side, Site, Position Yes -Correct Procedure Yes -Procedure Performed Yes -Type of Procedure Debridement -Clinical Debridement Subcutaneous -Tissue Removed Subcutaneous -Post Debridement (cm) - Length 3.0 -Post Debridement (cm) - Width 2.8 -Post Debridement (cm) - Depth 0.1 -Total Square (Post) (cm) 8.40 -Area of Debridement (cm) - Length 3.0 -Area of Debridement (cm) - Width 2.8 -Total Square (Area) (cm) 8.40 -Tunneling No -Undermining/Tunneling No -Circular Undermining No -Wound/Ulcer Outcome Not Healed -Ulcer Cleansing Rinsed/ Irrigated with Saline -Bioengineered Tissue Yes -Type of Bioengineered Tissue Theraskin -Expiration Date 06/08/24 -Product Lot Number [id number] -Percent Used 100 -Lot number of Saline Used [id number] -Bleeding Controlled with Pressure -Treatment Response Procedure Tolerated Well -Offloading No -Debridement - Subq, 1st 20sq cm No -Apply Skin Sub - 1st 25 sq cm - Legs 1 -Theraskin (per sq cm) 3 Pain Scale: 0-10 Numeric Is Patient Pain Free? Yes Assessment/Plan Assessment/Plan (1) Open wound of left thigh: CODE(S): S71.102A - Unspecified open wound, left thigh, initial encounter (2) Traumatic hematoma of left thigh: CODE(S): S70.12XA - Contusion of left thigh, initial encounter (3) Skin necrosis: CODE(S): I96 - Gangrene, not elsewhere classified (4) senior living (current) use of anticoagulants: CODE(S): Z79.01 - terminal manager (current) use of anticoagulants (5) History of deep vein thrombosis: CODE(S): Z86.718 - Personal history of other venous thrombosis and embolism (6) Long-term current use of tocilizumab: CODE(S): Z79.899 - Other [facility] (current) drug therapy (7) Rheumatoid arthritis: CODE(S): M06.9 - Rheumatoid arthritis, unspecified PLAN: Plan Patient has a traumatic hematoma wound left distal medial thigh. We had discussed advanced skin substitute grafts to further heal this open surgical hematoma wound. May be able to heal the wound without going back to surgery for an autograft. She was interested. We have received medical approval for this modality. The Thera-skin is applied 10 times in a 12 week period. She tolerated the 6th Thera-skin last week. If the wound is not totally healed after the 10 treatments, placement of an autograft has better chance of healing because the Thera-Skin has primed the wound base. Operative culture was negative. She was treated perioperatively with Levaquin and has finished them. Prealbumin was 27.0 on 08/13/22. Encourage nutritional supplementation with protein to help the healing process. Today is the 7th application of Thera-Skin after an adequate excisional debridement and irrigation with saline. Lot Number - [id number]. Percent used - 100%. Amount of Thera-Skin used - 3 cm2. Saline Lot Number - [id number]. Expiration - June 08, 2024. The Thera-Skin was secured with [place] skin tissue adhesive and Steri- strips, topped with a wound veil that was secured with Steri-strips. This was followed by Mepilex border dressing and a compression robert wrap. Her pain has been minimal lately. She has not needed anything for pain. In this patient I was inclined to proceed with skin grafting a little quicker than normal hoping that the pain would improve since the wound would be covered with the skin graft. Also closing the wound sooner with a skin graft would be helpful for her rheumatoid arthritis. She is being treated with Tocilizumab which can delay wound healing and can worsen infections if present in the wound. Followup one week for another Thera-skin application. Patient had to cancel her last immunologic therapy. She states she can feel more pain from the rheumatoid arthritis. As long as the medication is adequate, then would hold off on any immunologic therapy at this time until the wound has healed. If the medication ever becomes inadequate and the pain is unbearable, then would proceed with the immunologic therapy. It is given every 4 weeks. In this scenario, would recommend having the immunologic therapy every 8 weeks instead of every 4 weeks to give the remaining wound a chance to finish healing.
[2022-11-09 13:24] VITALS: BP 122/62; PULSE 69; RESP 18; TEMP 36.9
--- NOTE | 2022-11-09 14:12 | PCM.WC.PN ---
History of Present Illness Date of Service: 11/09/22 Chief Complaint: Open surgical hematoma wound left distal medial thigh. History of Wound: 67 year old woman who is on Coumadin for history of blood clots sustained a traumatic hematoma to her left distal medial thigh on , 08/06/22, when her left thigh hit the edge of a table at lunch. Despite robert wrap compression and ice packs over the next several days, the hematoma continued to increase in size which put pressure on the overlying skin that turned necrotic. She went to surgery on 08/12/22 where she underwent surgical preparation left distal medial thigh with incision and drainage and evacuation traumatic hematoma with excisional debridement overlying skin necrosis (81 cm2). Wound care has been with the VAC at 125 mmHg continuous suction 3x per week. And now we are applying Thera-skin. 7 applications thus far. Operative culture - negative. Pathology - Pieces of skin and adipose tissue with focal area of hemorrhage, clinically hematoma. CT Left lower extremity - 08/06/22 - There is a subdermal mass likely a hematoma in the distal thigh anteromedially. Prealbumin from 08/13/22 was 27.0. Encourage nutritional supplementation with protein to help the healing process. Today she denies fever. She is having a little less pain with the use of Valium for the VAC dressing change. Had a discussion with the patient regarding the use of advanced skin substitute grafts such as Thera-skin to help with the healing process. The other option was going back to surgery for a skin graft which she would like to avoid if possible. When approved by her insurance, she will have possible 10 applications of Thera-skin over 12 weeks. Last week, 11/02/22, she had the 7th application of Thera-skin. Progress of Wound: Improving with good adherence after Thera-Skin #7. Objective Data Objective Data Vital Signs: Vital Signs Temp Pulse Resp BP O2 Del Method 98.5 F 69 18 122/62 H High Flow 11/09/22 13:24 11/09/22 13:24 11/09/22 13:24 11/09/22 13:24 11/09/22 13:24 Oxygen Delivery Method High Flow Prealbumin was 27.0 on 08/13/22. Encourage nutritional supplementation with protein to help the healing process. Lab / Micro Data Attestation: I reviewed the patient's lab results. Charges/Coding Procedures Integumentary 150xxx-152xx: 10997 Skin sub graft trnk/arm/leg ( Modifier -58 (ICD-10 - S71.102A, S70.12xA, I96, Z79.01, Z86.718, Z79.899, M06.9) Debridement Note Debridement Note Wound debrided: #1 Left distal medial thigh. Laterality: Left Wound Grade/Stage: 3. Type of Debridement: Excisional debridement Anesthesia Used: 5% Lidocaine Gel Depth: Down to and including healthy tissue and in the subcutaneous layer Percentage of wound debrided: 100 Instrument Used: 5mm curette Tissue Removed: subcutaneous tissue. Severity: Fat Layer Exposed Amount of bleeding with debridement: Mild Bleeding Controlled with: Pressure and Compression and gauze Patient tolerated procedure: Patient tolerated procedure well Post-Debridement Measurements and Additional Note: Post-Debridement Measurements/Treatment - Nurse 1 - General Ulcer Assessment Start: 11/02/22 13:48 Freq: Status: Active Protocol: LILIYA Activity Type Activity Date Activity User E-sign Co-sign Detail Recorded Client Recorded Date Recorded By Document 11/02/22 13:49 [facility] [id number] 11/02/22 13:57 [facility] Document 11/09/22 13:24 [id number] 11/09/22 13:25 PL 11/02/22 11/09/22 13:49 13:24 - Today's Visit Information Type of service Follow-up Visit Follow-up Visit (Physician/HEALTH AND HUMAN PERFORMANCE PROFESSOR (Physician/HEALTH AND HUMAN PERFORMANCE PROFESSOR ) ) Arrival Mode Ambulatory Ambulatory Transfer Assistance None None Accompanied by Patient Identification Verified (Name & Yes Yes ) Patient Requires Transmission-Based No No Precautions Safety Precautions NA Vital Signs Temperature (97.8 F-99.1 F) 96.8 F L 98.5 F Temperature Source Temporal Temporal Pulse Rate (60-100) 70 69 Pulse Location Monitor Respiratory Rate (12-18) 16 18 Respiratory rate source Observation Oxygen Delivery Method Room Air High Flow Blood Pressure (90/60-120/80) 149/68 H 122/62 H Blood Pressure Mean (mm Hg) 95 82 Source Monitor Position Sitting Blood Pressure Location Left Arm History Since Last Visit- (Skip if this is Patient's initial visit) Have you changed medications since your No No last visit? Any new allergies or adverse reactions No No Had a fall/change in ADL's that may No No increase risk of falls Signs or symptoms of abuse and/or No No neglect since last visit Have you been in the hospital since your No No last visit? Has dressing in place as prescribed Yes Yes Has compression in place as prescribed Yes Yes Has offloadiing in place as prescribed N/A N/A Experienced any changes in pain level or No No management Left Footwear Regular Shoe Right Footwear Regular Shoe Pain Scale: 0-10 Numeric Is Patient Pain Free? Yes Yes MYRA - Nurse 1 - General Ulcer Measurement Start: 11/02/22 13:48 Freq: Status: Active Protocol: Activity Type Activity Date Activity User E-sign Co-sign Detail Recorded Client Recorded Date Recorded By Document 11/02/22 13:49 [facility] [id number] 11/02/22 13:57 [facility] 11/02/22 13:49 Wound Center Nurse 1 #1 L Knee -Combined with other wound No -Current Size (cm) - Length 0.1 -Current Size (cm) - Width 0.1 -Current Size (cm) - Depth 0.1 -Total Square Cm 0.01 -Date of Last Picture (Recall this 11/02/22 field) -Photo Taken Yes -Tunneling No -Undermining/Tunneling No -Circular Undermining No -Exudate Amt Medium -Exudate Type Serosanguineous -Wound Margin Distinct, Outline Attached -Granulation Amt Small (1-33%) -Granulation Quality Red -Slough/Fibrin Yes -Necrosis Amt Large (67-100%) -Necrotic Tissue Type Adherent Slough -Texture (Jannet-wound Skin Appearance) Assessed, Scarring -Moisture (Jannet-wound Skin Appearance) Assessed -Color (Jannet-wound Skin Appearance) Assessed -Temperature (Jannet-wound Skin No Abnormality Appearance) (Pt Warm) -Tenderness on Palpation (Jannet-wound No Skin Appearance) -Ulcer Cleansing Soap and Water -Foul Odor after Cleansing No -Anesthetic Used 5% Lidocaine Gel -Wound Comment(s) THERASKIN LEFT ON FOR SENIOR RELATIONSHIP MANAGER TO REMOVE. MYRA - Nurse 2 - General Ulcer CM Notes Start: 11/02/22 13:48 Freq: Status: Active Protocol: Activity Type Activity Date Activity User E-sign Co-sign Detail Recorded Client Recorded Date Recorded By Document 11/02/22 14:13 [id number] 11/02/22 14:20 Document 11/09/22 13:58 [id number] 11/09/22 13:59 11/02/22 11/09/22 14:13 13:58 Wound Center Nurse 2 #1 L Knee -Time 14:13 13:58 -Correct Patient Yes Yes -Correct Side, Site, Position Yes Yes -Correct Procedure Yes Yes -Procedure Performed Yes Yes -Type of Procedure Debridement Debridement -Clinical Debridement Subcutaneous Subcutaneous -Tissue Removed Subcutaneous Subcutaneous -Post Debridement (cm) - Length 3.0 2.4 -Post Debridement (cm) - Width 2.8 1.7 -Post Debridement (cm) - Depth 0.1 0.1 -Total Square (Post) (cm) 8.40 4.08 -Area of Debridement (cm) - Length 3.0 2.4 -Area of Debridement (cm) - Width 2.8 1.7 -Total Square (Area) (cm) 8.40 4.08 -Tunneling No No -Undermining/Tunneling No No -Circular Undermining No No -Wound/Ulcer Outcome Not Healed Not Healed -Ulcer Cleansing Rinsed/ Rinsed/ Irrigated with Irrigated with Saline Saline -Foul Odor after Cleansing No -Bioengineered Tissue Yes Yes -Type of Bioengineered Tissue Theraskin Theraskin -Expiration Date 06/08/24 02/04/27 -Product Lot Number [id number] -Percent Used 100 100 -Lot number of Saline Used [id number] -Bleeding Controlled with Pressure Pressure -Treatment Response Procedure Procedure Tolerated Well Tolerated Well -Offloading No No -Debridement - Subq, 1st 20sq cm No No -Apply Skin Sub - 1st 25 sq cm - Legs 1 1 -Theraskin (per sq cm) 3 6 Pain Scale: 0-10 Numeric Is Patient Pain Free? Yes Yes - Nurse 3 - General Ulcer D/C NN Start: 11/02/22 13:48 Freq: Status: Active Protocol: Activity Type Activity Date Activity User E-sign Co-sign Detail Recorded Client Recorded Date Recorded By Document 11/09/22 14:01 [id number] 11/09/22 14:01 11/09/22 14:01 Wound Care Center Nurse 3 #1 L Knee -Ulcer Cleansing Rinsed/ Irrigated with Saline -Primary Dressing Applied Mepilex Border -Primary Dressing Covered/Secured with Dry Gauze -Mepilex Border 2 Pain Scale: 0-10 Numeric Is Patient Pain Free? Yes WC - Visit Discharge Discharge Condition Stable Ambulatory Status Ambulatory Transportation Private Auto Medication Reconcilliation completed & Yes provided to patient/care provider Clinical Summary of Care Provided Yes Assessment/Plan Assessment/Plan (1) Open wound of left thigh: CODE(S): S71.102A - Unspecified open wound, left thigh, initial encounter (2) Traumatic hematoma of left thigh: CODE(S): S70.12XA - Contusion of left thigh, initial encounter (3) Skin necrosis: CODE(S): I96 - Gangrene, not elsewhere classified (4) senior living (current) use of anticoagulants: CODE(S): Z79.01 - intermediate frame tender (current) use of anticoagulants (5) History of deep vein thrombosis: CODE(S): Z86.718 - Personal history of other venous thrombosis and embolism (6) Long-term current use of tocilizumab: CODE(S): Z79.899 - Other intermediate manager (current) drug therapy (7) Rheumatoid arthritis: CODE(S): M06.9 - Rheumatoid arthritis, unspecified PLAN: Plan Patient has a traumatic hematoma wound left distal medial thigh. We had discussed advanced skin substitute grafts to further heal this open surgical hematoma wound. May be able to heal the wound without going back to surgery for an autograft. She was interested. We have received medical approval for this modality. The Thera-skin is applied 10 times in a 12 week period. She tolerated the 7th Thera-skin last week. If the wound is not totally healed after the 10 treatments, placement of an autograft has better chance of healing because the Thera-Skin has primed the wound base. Operative culture was negative. She was treated perioperatively with Levaquin and has finished them. Prealbumin was 27.0 on 08/13/22. Encourage nutritional supplementation with protein to help the healing process. Today is the 8th application of Thera-Skin after an adequate excisional debridement and irrigation with saline. Lot Number - [id number]. Percent used - 100%. Amount of Thera-Skin used - 6 cm2. Saline Lot Number - [id number]. Expiration - February 04, 2027. The Thera-Skin was secured with Steri-strips, topped with a wound veil that was secured with Steri-strips. This was followed by Mepilex border dressing and a compression robert wrap. Her pain has been minimal lately. She has not needed anything for pain. In this patient I was inclined to proceed with skin grafting a little quicker than normal hoping that the pain would improve since the wound would be covered with the skin graft. Also closing the wound sooner with a skin graft would be helpful for her rheumatoid arthritis. She is being treated with Tocilizumab which can delay wound healing and can worsen infections if present in the wound. Followup one week for another Thera-skin application. Patient had to cancel her last immunologic therapy. She states she can feel more pain from the rheumatoid arthritis. As long as the medication is adequate, then would hold off on any immunologic therapy at this time until the wound has healed. If the medication ever becomes inadequate and the pain is unbearable, then would proceed with the immunologic therapy. It is given every 4 weeks. In this scenario, would recommend having the immunologic therapy every 8 weeks instead of every 4 weeks to give the remaining wound a chance to finish healing.
[2022-11-16 14:35] VITALS: BP 126/84; PULSE 70; RESP 18; TEMP 36.3
--- NOTE | 2022-11-16 16:14 | PCM.WC.PN ---
History of Present Illness Date of Service: 11/16/22 Chief Complaint: Open surgical hematoma wound left distal medial thigh. History of Wound: 67 year old woman who is on Coumadin for history of blood clots sustained a traumatic hematoma to her left distal medial thigh on , 08/06/22, when her left thigh hit the edge of a table at lunch. Despite david wrap compression and ice packs over the next several days, the hematoma continued to increase in size which put pressure on the overlying skin that turned necrotic. She went to surgery on 08/12/22 where she underwent surgical preparation left distal medial thigh with incision and drainage and evacuation traumatic hematoma with excisional debridement overlying skin necrosis (81 cm2). Wound care has been with the VAC at 125 mmHg continuous suction 3x per week. And now we are applying Thera-skin. 8 applications thus far. Operative culture - negative. Pathology - Pieces of skin and adipose tissue with focal area of hemorrhage, clinically hematoma. CT Left lower extremity - 08/06/22 - There is a subdermal mass likely a hematoma in the distal thigh anteromedially. Prealbumin from 08/13/22 was 27.0. Encourage nutritional supplementation with protein to help the healing process. Today she denies fever. She is tolerating the debridements without difficulty. Had a discussion with the patient regarding the use of advanced skin substitute grafts such as Thera-skin to help with the healing process. The other option was going back to surgery for a skin graft which she would like to avoid if possible. Her insurance approved the treatments which will be 10 applications of Thera-skin over 12 weeks. Last week, 11/09/22, she had the 8th application of Thera-skin. Progress of Wound: Continues to improve after Thera-Skin application #8. Objective Data Objective Data Vital Signs: Vital Signs Temp Pulse Resp BP O2 Del Method 97.3 F L 70 18 126/84 H High Flow 11/16/22 14:35 11/16/22 14:35 11/16/22 14:35 11/16/22 14:35 11/09/22 13:24 Oxygen Delivery Method High Flow Prealbumin was 27.0 on 08/13/22. Encourage nutritional supplementation with protein to help the healing process. Lab / Micro Data Attestation: I reviewed the patient's lab results. Charges/Coding Procedures Integumentary [id number]: [id number] Patrizia subq tissue 20 sq cm/< (ICD-10 - S71.102A, S70.12xA, I96, Z79.01, Z86.718, Z79.899, M06.9) Debridement Note Debridement Note Wound debrided: #1 Left distal medial thigh. Laterality: Left Wound Grade/Stage: 3. Type of Debridement: Excisional debridement Anesthesia Used: 5% Lidocaine Gel Depth: Down to and including healthy tissue and in the subcutaneous layer Percentage of wound debrided: 100 Instrument Used: 5mm curette Tissue Removed: subcutaneous tissue. Severity: Fat Layer Exposed Amount of bleeding with debridement: Mild Bleeding Controlled with: Pressure and Compression and gauze Patient tolerated procedure: Patient tolerated procedure well Post-Debridement Measurements and Additional Note: Post-Debridement Measurements/Treatment - Nurse 1 - General Ulcer Assessment Start: 11/02/22 13:48 Freq: Status: Active Protocol: LILIYA Activity Type Activity Date Activity User E-sign Co-sign Detail Recorded Client Recorded Date Recorded By Document 11/02/22 13:49 [facility] [id number] 11/02/22 13:57 BM Document 11/09/22 13:24 PL [id number] 11/09/22 13:25 PL Document 11/16/22 14:35 DL [id number] 11/16/22 14:40 DL 11/02/22 11/09/22 11/16/22 13:49 13:24 14:35 - Today's Visit Information Type of service Follow-up Visit Follow-up Visit Nurse-only (Physician/[employer] (Physician/[employer] Visit ) ) Arrival Mode Ambulatory Ambulatory Transfer Assistance None None None Accompanied by Patient Identification Verified (Name & Yes Yes Yes ) Patient Requires Transmission-Based No No No Precautions Safety Precautions NA Vital Signs Temperature (97.8 F-99.1 F) 96.8 F L 98.5 F 97.3 F L Temperature Source Temporal Temporal Temporal Pulse Rate (60-100) 70 69 70 Pulse Location Monitor Monitor Respiratory Rate (12-18) 16 18 18 Respiratory rate source Observation Observation Oxygen Delivery Method Room Air High Flow Blood Pressure (90/60-120/80) 149/68 H 122/62 H 126/84 H Blood Pressure Mean (mm Hg) 95 82 98 Source Monitor Monitor Position Sitting Blood Pressure Location Left Arm History Since Last Visit- (Skip if this is Patient's initial visit) Have you changed medications since your No No No last visit? Any new allergies or adverse reactions No No No Had a fall/change in ADL's that may No No No increase risk of falls Signs or symptoms of abuse and/or No No No neglect since last visit Have you been in the hospital since your No No No last visit? Has dressing in place as prescribed Yes Yes Yes Has compression in place as prescribed Yes Yes Yes Has offloadiing in place as prescribed N/A N/A N/A Experienced any changes in pain level or No No No management Left Footwear Regular Shoe Right Footwear Regular Shoe Pain Scale: 0-10 Numeric Is Patient Pain Free? Yes Yes Yes WC - Nurse 1 - General Ulcer Measurement Start: 11/02/22 13:48 Freq: Status: Active Protocol: Activity Type Activity Date Activity User E-sign Co-sign Detail Recorded Client Recorded Date Recorded By Document 11/02/22 13:49 F [id number] 11/02/22 13:57 BMF Document 11/16/22 14:35 DL [id number] 11/16/22 14:40 DL 11/02/22 11/16/22 13:49 14:35 Wound Center Nurse 1 #1 L Knee -Combined with other wound No -Current Size (cm) - Length 0.1 0.1 -Current Size (cm) - Width 0.1 0.1 -Current Size (cm) - Depth 0.1 0.1 -Total Square Cm 0.01 0.01 -Date of Last Picture (Recall this 11/02/22 field) -Photo Taken Yes -Tunneling No -Undermining/Tunneling No -Circular Undermining No -Exudate Amt Medium Small -Exudate Type Serosanguineous Serosanguineous -Wound Margin Distinct, Distinct, Outline Outline Attached Attached -Granulation Amt Small (1-33%) Small (1-33%) -Granulation Quality Red Red -Slough/Fibrin Yes -Necrosis Amt Large (67-100%) Small (1-33%) -Necrotic Tissue Type Adherent Slough Adherent Slough -Structure Exposed N/A -Texture (Jannet-wound Skin Appearance) Assessed, Scarring Scarring -Moisture (Jannet-wound Skin Appearance) Assessed No Abnormality -Color (Jannet-wound Skin Appearance) Assessed No Abnormality -Temperature (Jannet-wound Skin No Abnormality No Abnormality Appearance) (Pt Warm) (Pt Warm) -Tenderness on Palpation (Jannet-wound No Skin Appearance) -Ulcer Cleansing Soap and Water Soap and Water -Foul Odor after Cleansing No No -Anesthetic Used 5% Lidocaine 5% Lidocaine Gel Gel -Wound Comment(s) THERASKIN 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 WC - Nurse 2 - General Ulcer CM Notes Start: 11/02/22 13:48 Freq: Status: Active Protocol: Activity Type Activity Date Activity User E-sign Co-sign Detail Recorded Client Recorded Date Recorded By Document 11/02/22 14:13 [id number] 11/02/22 14:20 Document 11/09/22 13:58 [id number] 11/09/22 13:59 Document 11/16/22 14:48 [id number] 11/16/22 15:06 11/02/22 11/09/22 11/16/22 14:13 13:58 14:48 Wound Center Nurse 2 #1 L Knee -Time 14:13 13:58 14:55 -Correct Patient Yes Yes Yes -Correct Side, Site, Position Yes Yes Yes -Correct Procedure Yes Yes Yes -Procedure Performed Yes Yes Yes -Type of Procedure Debridement Debridement Debridement -Clinical Debridement Subcutaneous Subcutaneous Subcutaneous -Tissue Removed Subcutaneous Subcutaneous Subcutaneous -Post Debridement (cm) - Length 3.0 2.4 3.0 -Post Debridement (cm) - Width 2.8 1.7 2.2 -Post Debridement (cm) - Depth 0.1 0.1 0.1 -Total Square (Post) (cm) 8.40 4.08 6.60 -Area of Debridement (cm) - Length 3.0 2.4 3.0 -Area of Debridement (cm) - Width 2.8 1.7 2.2 -Total Square (Area) (cm) 8.40 4.08 6.60 -Tunneling No No No -Undermining/Tunneling No No No -Circular Undermining No No No -Wound/Ulcer Outcome Not Healed Not Healed Not Healed -Ulcer Cleansing Rinsed/ Rinsed/ Rinsed/ Irrigated with Irrigated with Irrigated with Saline Saline Saline -Foul Odor after Cleansing No No -Bioengineered Tissue Yes Yes No -Type of Bioengineered Tissue Theraskin Theraskin -Expiration Date 06/08/24 02/04/27 -Product Lot Number [id number] -Percent Used 100 100 -Lot number of Saline Used [id number] -Bleeding Controlled with Pressure Pressure Pressure -Treatment Response Procedure Procedure Procedure Tolerated Well Tolerated Well Tolerated Well -Offloading No No No -Debridement - Subq, 1st 20sq cm No No Yes -Apply Skin Sub - 1st 25 sq cm - Legs 1 1 -Theraskin (per sq cm) 3 6 Pain Scale: 0-10 Numeric Is Patient Pain Free? Yes Yes Yes - Nurse 3 - General Ulcer D/C NN Start: 11/02/22 13:48 Freq: Status: Active Protocol: Activity Type Activity Date Activity User E-sign Co-sign Detail Recorded Client Recorded Date Recorded By Document 11/09/22 14:01 [id number] 11/09/22 14:01 Document 11/16/22 15:06 [id number] 11/16/22 15:11 11/09/22 11/16/22 14:01 15:06 Wound Care Center Nurse 3 #1 L Knee -Ulcer Cleansing Rinsed/ Rinsed/ Irrigated with Irrigated with Saline Saline -Foul Odor after Cleansing No -Primary Dressing Applied Mepilex Border C Hydrogel ($), NonAdherent Contact Layer -Primary Dressing Covered/Secured with Dry Gauze Dry Gauze, Secured with Tape -Mepilex Border 2 Left -Compression Wrap David Wrap Pain Scale: 0-10 Numeric Is Patient Pain Free? 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 We had discussed advanced skin substitute grafts to further heal this open surgical hematoma wound. May be able to heal the wound without going back to surgery for an autograft. She was interested. We have received medical approval for this modality. The Thera-skin is applied 10 times in a 12 week period. She tolerated the 8th Thera-skin last week. If the wound is not totally healed after the 10 treatments, placement of an autograft has better chance of healing because the Thera-Skin has primed the wound base. Operative culture was negative. She was treated perioperatively with Levaquin and has finished them. Prealbumin was 27.0 on 08/13/22. Encourage nutritional supplementation with protein to help the healing process. We didn't apply any Thera-Skin today because the wound looked like it was starting to plateau. By taking a week off, the patient can now get the wound wet in the shower with soap and water. Sometimes this can jump start the healing back on track. Will reassess next week. This is the first time we have held off on applying Thera-Skin since we started. As of now we have applied 8 applications in a 9 week period. Will begin wound care with Hydrogel daily. In this patient I was inclined to proceed with skin grafting a little quicker than normal hoping that the pain would improve since the wound would be covered with the skin graft. Also closing the wound sooner with a skin graft would be helpful for her rheumatoid arthritis. She is being treated with Tocilizumab which can delay wound healing and can worsen infections if present in the wound. Followup one week for another Thera-skin application. She has had 8 applications in 9 weeks. Patient had to cancel her last immunologic therapy. She states she can feel more pain from the rheumatoid arthritis. As long as the pain medication is adequate, then would hold off on any immunologic therapy at this time until the wound has healed. If the pain medication ever becomes inadequate and the pain is unbearable, then would proceed with the immunologic therapy. It is given every 4 weeks. In this scenario, would recommend having the immunologic therapy every 8 weeks instead of every 4 weeks to give the remaining wound a chance to finish healing.
[2022-11-23 13:36] VITALS: BP 116/97; PULSE 65; RESP 18; TEMP 36.2
--- NOTE | 2022-11-23 16:16 | PN.PCM_ITS ---
History of Present Illness Date of Service: 11/23/22 Chief Complaint: Open surgical hematoma wound left distal medial thigh. History of Wound: 67 year old woman who is on Coumadin for history of blood clots sustained a traumatic hematoma to her left distal medial thigh on , 08/06/22, when her left thigh hit the edge of a table at lunch. Despite david wrap compression and ice packs over the next several days, the hematoma continued to increase in size which put pressure on the overlying skin that turned necrotic. She went to surgery on 08/12/22 where she underwent surgical preparation left distal medial thigh with incision and drainage and evacuation traumatic hematoma with excisional debridement overlying skin necrosis (81 cm2). Wound care has been with the VAC at 125 mmHg continuous suction 3x per week. And now we are applying Thera-skin. 8 applications thus far. Last week we held off on Thera-Skin and used Collagen Hydrogel for wound care. Operative culture - negative. Pathology - Pieces of skin and adipose tissue with focal area of hemorrhage, clinically hematoma. CT Left lower extremity - 08/06/22 - There is a subdermal mass likely a hematoma in the distal thigh anteromedially. Prealbumin from 08/13/22 was 27.0. Encourage nutritional supplementation with protein to help the healing process. Today she denies fever. She is tolerating the debridements without difficulty. Had a discussion with the patient regarding the use of advanced skin substitute grafts such as Thera-skin to help with the healing process. The other option was going back to surgery for a skin graft which she would like to avoid if possible. for a skin graft which she would like to avoid if possible. Her insurance approved the treatments which will be 10 applications of Thera-skin over 12 weeks. As of 11/09/22, she had the 8th application of Thera-skin. Last week, 11/16/22, no Thera-Skin was placed. The healing had started to plateau. By taking a week off and allowing the wound to get wet in the shower with soap and water can sometimes jump start the healing process. Progress of Wound: Slight improvement. Objective Data Objective Data Vital Signs: Vital Signs Temp Pulse Resp BP O2 Del Method 97.1 F L 65 18 116/97 H High Flow 11/23/22 13:36 11/23/22 13:36 11/23/22 13:36 11/23/22 13:36 11/09/22 13:24 Oxygen Delivery Method High Flow Prealbumin was 27.0 on 08/13/22. Encourage nutritional supplementation with protein to help the healing process. Lab / Micro Data Attestation: I reviewed the patient's lab results. Charges/Coding Procedures Integumentary 150xxx-152xx: 25705 Skin sub graft trnk/arm/leg ( Modifier -58 (ICD-10 - S71.102A, S70.12xA, I96, Z79.01, Z86.718, Z79.899, M06.9) Debridement Note Debridement Note Wound debrided: #1 Left distal medial thigh. Laterality: Left Wound Grade/Stage: 3. Type of Debridement: Excisional debridement and - Anesthesia Used: 5% Lidocaine Gel Depth: Down to and including healthy tissue and in the subcutaneous layer Percentage of wound debrided: 100 Instrument Used: 5mm curette Tissue Removed: subcutaneous tissue. Severity: Fat Layer Exposed Amount of bleeding with debridement: Mild Bleeding Controlled with: Pressure and Compression and gauze Patient tolerated procedure: Patient tolerated procedure well Post-Debridement Measurements and Additional Note: Post-Debridement Measurements/Treatment - Nurse 1 - General Ulcer Assessment Start: 11/02/22 13:48 Freq: Status: Active Protocol: LILIYA Activity Type Activity Date Activity User E-sign Co-sign Detail Recorded Client Recorded Date Recorded By Document 11/02/22 13:49 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 (Physician/PRODUCTION HONING MACHINE OPERATOR Visit ) ) Arrival Mode Ambulatory Ambulatory Transfer Assistance None None None Accompanied by Patient Identification Verified (Name & Yes Yes Yes ) Patient Requires Transmission-Based No No No Precautions Safety Precautions NA Vital Signs Temperature (97.8 F-99.1 F) 96.8 F L 98.5 F 97.3 F L Temperature Source Temporal Temporal Temporal Pulse Rate (60-100) 70 69 70 Pulse Location Monitor Monitor Respiratory Rate (12-18) 16 18 18 Respiratory rate source Observation Observation Oxygen Delivery Method Room Air High Flow Blood Pressure (90/60-120/80) 149/68 H 122/62 H 126/84 H Blood Pressure Mean (mm Hg) 95 82 98 Source Monitor Monitor Position Sitting Blood Pressure Location Left Arm History Since Last Visit- (Skip if this is Patient's initial visit) Have you changed medications since your No No No last visit? Any new allergies or adverse reactions No No No Had a fall/change in ADL's that may No No No increase risk of falls Signs or symptoms of abuse and/or No No No neglect since last visit Have you been in the hospital since your No No No last visit? Has dressing in place as prescribed Yes Yes Yes Has compression in place as prescribed Yes Yes Yes Has offloadiing in place as prescribed N/A N/A N/A Experienced any changes in pain level or No No No management Left Footwear Regular Shoe Right Footwear Regular Shoe Pain Scale: 0-10 Numeric Is Patient Pain Free? Yes Yes Yes 11/23/22 13:36 WC - Today's Visit Information Type of service Follow-up Visit (Physician/PRODUCTION HONING MACHINE OPERATOR ) Arrival Mode Ambulatory Transfer Assistance None Accompanied by Patient Identification Verified (Name & Yes ) Patient Requires Transmission-Based No Precautions Safety Precautions NA Vital Signs Temperature (97.8 F-99.1 F) 97.1 F L Temperature Source Temporal Pulse Rate (60-100) 65 Pulse Location Respiratory Rate (12-18) 18 Respiratory rate source Oxygen Delivery Method Blood Pressure (90/60-120/80) 116/97 H Blood Pressure Mean (mm Hg) 103 Source Position Blood Pressure Location History Since Last Visit- (Skip if this is Patient's initial visit) Have you changed medications since your No last visit? Any new allergies or adverse reactions No Had a fall/change in ADL's that may No increase risk of falls Signs or symptoms of abuse and/or No neglect since last visit Have you been in the hospital since your No last visit? Has dressing in place as prescribed Yes Has compression in place as prescribed Yes Has offloadiing in place as prescribed No Experienced any changes in pain level or No management Left Footwear Right Footwear Pain Scale: 0-10 Numeric Is Patient Pain Free? Yes WC - Nurse 1 - General Ulcer Measurement Start: 11/02/22 13:48 Freq: Status: Active Protocol: Activity Type Activity Date Activity User E-sign Co-sign Detail Recorded Client Recorded Date Recorded By Document 11/02/22 13:49 BMF [id number] 11/02/22 13:57 BMF Document 11/16/22 14:35 DL [id number] 11/16/22 14:40 DL Document 11/23/22 13:36 PL [id number] 11/23/22 13:39 PL 11/02/22 11/16/22 11/23/22 13:49 14:35 13:36 Wound Center Nurse 1 #1 L Knee -Combined with other wound No -Current Size (cm) - Length 0.1 0.1 0.1 -Current Size (cm) - Width 0.1 0.1 0.1 -Current Size (cm) - Depth 0.1 0.1 0.1 -Total Square Cm 0.01 0.01 0.01 -Date of Last Picture (Recall this 11/02/22 field) -Photo Taken Yes -Tunneling No -Undermining/Tunneling No -Circular Undermining No -Exudate Amt Medium Small -Exudate Type Serosanguineous Serosanguineous -Wound Margin Distinct, Distinct, Outline Outline Attached Attached -Granulation Amt Small (1-33%) Small (1-33%) -Granulation Quality Red Red -Slough/Fibrin Yes -Necrosis Amt Large (67-100%) Small (1-33%) -Necrotic Tissue Type Adherent Slough Adherent Slough -Structure Exposed N/A -Texture (Jannet-wound Skin Appearance) Assessed, Scarring Scarring -Moisture (Jannet-wound Skin Appearance) Assessed No Abnormality -Color (Jannet-wound Skin Appearance) Assessed No Abnormality -Temperature (Jannet-wound Skin No Abnormality No Abnormality Appearance) (Pt Warm) (Pt Warm) -Tenderness on Palpation (Jannet-wound No Skin Appearance) -Ulcer Cleansing Soap and Water Soap and Water -Foul Odor after Cleansing No No -Anesthetic Used 5% Lidocaine 5% Lidocaine Gel Gel -Wound Comment(s) THERASKIN LEFT ON FOR TEST ENG TO REMOVE. WC - Nurse 2 - General Ulcer CM Notes Start: 11/02/22 13:48 Freq: Status: Active Protocol: Activity Type Activity Date Activity User E-sign Co-sign Detail Recorded Client Recorded Date Recorded By Document 11/02/22 14:13 [id number] 11/02/22 14:20 Document 11/09/22 13:58 [id number] 11/09/22 13:59 Document 11/16/22 14:48 [id number] 11/16/22 15:06 Document 11/23/22 13:56 [id number] 11/23/22 14:05 11/02/22 11/09/22 11/16/22 14:13 13:58 14:48 Wound Center Nurse 2 #1 L Knee -Time 14:13 13:58 14:55 -Correct Patient Yes Yes Yes -Correct Side, Site, Position Yes Yes Yes -Correct Procedure Yes Yes Yes -Procedure Performed Yes Yes Yes -Type of Procedure Debridement Debridement Debridement -Clinical Debridement Subcutaneous Subcutaneous Subcutaneous -Tissue Removed Subcutaneous Subcutaneous Subcutaneous -Post Debridement (cm) - Length 3.0 2.4 3.0 -Post Debridement (cm) - Width 2.8 1.7 2.2 -Post Debridement (cm) - Depth 0.1 0.1 0.1 -Total Square (Post) (cm) 8.40 4.08 6.60 -Area of Debridement (cm) - Length 3.0 2.4 3.0 -Area of Debridement (cm) - Width 2.8 1.7 2.2 -Total Square (Area) (cm) 8.40 4.08 6.60 -Tunneling No No No -Undermining/Tunneling No No No -Circular Undermining No No No -Wound/Ulcer Outcome Not Healed Not Healed Not Healed -Ulcer Cleansing Rinsed/ Rinsed/ Rinsed/ Irrigated with Irrigated with Irrigated with Saline Saline Saline -Foul Odor after Cleansing No No -Bioengineered Tissue Yes Yes No -Type of Bioengineered Tissue Theraskin Theraskin -Expiration Date 06/08/24 02/04/27 -Product Lot Number [id number] -Percent Used 100 100 -Lot number of Saline Used [id number] -Bleeding Controlled with Pressure Pressure Pressure -Treatment Response Procedure Procedure Procedure Tolerated Well Tolerated Well Tolerated Well -Offloading No No No -Debridement - Subq, 1st 20sq cm No No Yes -Apply Skin Sub - 1st 25 sq cm - Legs 1 1 -Theraskin (per sq cm) 3 6 Pain Scale: 0-10 Numeric Is Patient Pain Free? Yes Yes Yes 11/23/22 13:56 Wound Center Nurse 2 #1 L Knee -Time 13:56 -Correct Patient Yes -Correct Side, Site, Position Yes -Correct Procedure Yes -Procedure Performed Yes -Type of Procedure Debridement -Clinical Debridement Subcutaneous -Tissue Removed Subcutaneous -Post Debridement (cm) - Length 2.3 -Post Debridement (cm) - Width 1.8 -Post Debridement (cm) - Depth 0.1 -Total Square (Post) (cm) 4.14 -Area of Debridement (cm) - Length 2.3 -Area of Debridement (cm) - Width 1.8 -Total Square (Area) (cm) 4.14 -Tunneling No -Undermining/Tunneling No -Circular Undermining No -Wound/Ulcer Outcome Not Healed -Ulcer Cleansing Rinsed/ Irrigated with Saline -Foul Odor after Cleansing -Bioengineered Tissue Yes -Type of Bioengineered Tissue Theraskin -Expiration Date 06/07/27 -Product Lot Number [id number] -Percent Used 100 -Lot number of Saline Used [id number] -Bleeding Controlled with Pressure -Treatment Response Procedure Not Tolerated Well -Offloading No -Debridement - Subq, 1st 20sq cm No -Apply Skin Sub - 1st 25 sq cm - Legs 1 -Theraskin (per sq cm) 116 Pain Scale: 0-10 Numeric Is Patient Pain Free? Yes - Nurse 3 - General Ulcer D/C NN Start: 11/02/22 13:48 Freq: Status: Active Protocol: Activity Type Activity Date Activity User E-sign Co-sign Detail Recorded Client Recorded Date Recorded By Document 11/09/22 14:01 [id number] 11/09/22 14:01 Document 11/16/22 15:06 [id number] 11/16/22 15:11 11/09/22 11/16/22 14:01 15:06 Wound Care Center Nurse 3 #1 L Knee -Ulcer Cleansing Rinsed/ Rinsed/ Irrigated with Irrigated with Saline Saline -Foul Odor after Cleansing No -Primary Dressing Applied Mepilex Border C Hydrogel ($), NonAdherent Contact Layer -Primary Dressing Covered/Secured with Dry Gauze Dry Gauze, Secured with Tape -Mepilex Border 2 Left -Compression Wrap David Wrap Pain Scale: 0-10 Numeric Is Patient Pain Free? Yes Yes WC - Visit Discharge Discharge Condition Stable Stable Ambulatory Status Ambulatory Ambulatory Transportation Private Auto Private Auto Medication Reconcilliation completed & Yes Yes provided to patient/care provider Clinical Summary of Care Provided Yes Yes Assessment/Plan Assessment/Plan (1) Open wound of left thigh: CODE(S): S71.102A - Unspecified open wound, left thigh, initial encounter (2) Traumatic hematoma of left thigh: CODE(S): S70.12XA - Contusion of left thigh, initial encounter (3) Skin necrosis: CODE(S): I96 - Gangrene, not elsewhere classified (4) emt intermediate (current) use of anticoagulants: CODE(S): Z79.01 - [facility]CI (current) use of anticoagulants (5) History of deep vein thrombosis: CODE(S): Z86.718 - Personal history of other venous thrombosis and embolism (6) Long-term current use of tocilizumab: CODE(S): Z79.899 - Other extermination supervisor (current) drug therapy (7) Rheumatoid arthritis: CODE(S): M06.9 - Rheumatoid arthritis, unspecified PLAN: Plan Patient has a traumatic hematoma wound left distal medial thigh. We had discussed advanced skin substitute grafts to further heal this open surgical hematoma wound. May be able to heal the wound without going back to surgery for an autograft. She was interested. We have received medical approval for th is modality. The Thera-skin is applied 10 times in a 12 week period. She tolerated the 8th Thera-skin on 11/09/22. On 11/16/22, no Thera-Skin was placed. If the wound is not totally healed after the 10 treatments, placement of an autograft has better chance of healing because the Thera-Skin has primed the wound base. Operative culture was negative. She was treated perioperatively with Levaquin a nd has finished them. Prealbumin was 27.0 on 08/13/22. Encourage nutritional supplementation with protein to help the healing process. Today is the 9th application of Thera-Skin after an adequate excisional debridement and irrigation with saline. Lot Number - [id number]. Percent used - 100%. Amount of Thera-Skin used - 6 cm2. Saline Lot Number - [id number]. Expiration - June 07, 2027. The Thera-Skin was secured with Steri-strips, topped with a wound veil that was secured with Steri-strips. This was followed by Mepilex border dressing and a compression david wrap. In this patient I was inclined to proceed with skin grafting a little quicker than normal hoping that the pain would improve since the wound would be covered with the skin graft. Also closing the wound sooner with a skin graft would be helpful for her rheumatoid arthritis. She is being treated with Tocilizumab which can delay wound healing and can worsen infections if present in the wound. Patient had to cancel her last immunologic therapy. She states she can feel more pain from the rheumatoid arthritis. As long as the pain medication is adequate, then would hold off on any immunologic therapy at this time until the wound has healed. If the pain medication ever becomes inadequate and the pain is unbearable, then would proceed with the immunologic therapy. It is given every 4 weeks. In this scenario, would recommend having the immunologic therapy every 8 weeks instead of every 4 weeks to give the remaining wound a chance to finish healing. Followup one week for another Thera-skin application. She has had 9 applications in 10 weeks.
== END 2022-11-26 23:59 | disposition home or self-care (01) ==
LOC: WC 13:45
PROVIDERS: PCP Family Medicine Geriatric Medicine; Referring Provider Surgery; Visit Provider Surgery
DX: I96 Gangrene, not elsewhere classified (principal); M06.9 Rheumatoid arthritis, unspecified; S71.102A Unspecified open wound, left thigh, initial encounter; S70.12XS Contusion of left thigh, sequela; W22.03XS Walked into furniture, sequela; Z79.01 Long term (current) use of anticoagulants; Z79.899 Other long term (current) drug therapy; Z86.718 Personal history of other venous thrombosis and embolism
CPT/HCPCS: 11042; 15271; Q4121

== ENCOUNTER 2022-12-14 14:00 | Outpatient (RCR) | payer MEDICARE, OTHER, SELFPAY ==
[2022-11-27 00:37] VITALS: BP 116/97; PULSE 65; RESP 18; TEMP 36.2
[2022-12-01 13:24] VITALS: BP 142/74; PULSE 86; RESP 20; TEMP 36.8
--- NOTE | 2022-12-01 14:43 | WC ---
Dr Donahue spoke to [facility] VISITOR INFORMATION ASSISTANT regarding injection for patient for her RA. Dr Donahue states he is okay with her getting the injection and spoke to the Rheumoatologist for it. Called patient and told her about this and has an appt with their office tomorrow.
--- NOTE | 2022-12-01 16:42 | PN.PCM_ITS ---
History of Present Illness Date of Service: 12/01/22 Chief Complaint: Open surgical hematoma wound left distal medial thigh. History of Wound: 67 year old woman who is on Coumadin for history of blood clots sustained a traumatic hematoma to her left distal medial thigh on , 08/06/22, when her left thigh hit the edge of a table at lunch. Despite david wrap compression and ice packs over the next several days, the hematoma continued to increase in size which put pressure on the overlying skin that turned necrotic. She went to surgery on 08/12/22 where she underwent surgical preparation left distal medial thigh with incision and drainage and evacuation traumatic hematoma with excisional debridement overlying skin necrosis (81 cm2). Wound care has been with the VAC at 125 mmHg continuous suction 3x per week. And now we are applying Thera-skin. 8 applications thus far. Last week we held off on Thera-Skin and used Collagen Hydrogel for wound care. Operative culture - negative. Pathology - Pieces of skin and adipose tissue with focal area of hemorrhage, clinically hematoma. CT Left lower extremity - 08/06/22 - There is a subdermal mass likely a hematoma in the distal thigh anteromedially. Prealbumin from 08/13/22 was 27.0. Encourage nutritional supplementation with protein to help the healing process. Today she denies fever. She is tolerating the debridements without difficulty. Had a discussion with the patient regarding the use of advanced skin substitute grafts such as Thera-skin to help with the healing process. The other option was going back to surgery for a skin graft which she would like to avoid if possible. for a skin graft which she would like to avoid if possible. Her insurance approved the treatments which will be 10 applications of Thera-skin over 12 weeks. On 11/23/22, she had the 9th application of Thera-skin. Progress of Wound: The ulcer is smaller in size. The base is beefy pink with good bleeding. Objective Data Objective Data Vital Signs: Vital Signs Temp Pulse Resp BP 98.3 F 86 20 H 142/74 H 12/01/22 13:24 12/01/22 13:24 12/01/22 13:24 12/01/22 13:24 Charges/Coding Procedures Integumentary 150xxx-152xx: [id number] Skin sub graft trnk/arm/leg ( Modifier -58 (ICD-10 - S71.102A, S70.12xA, I96, Z79.01, Z86.718, Z79.899, M06.9) Debridement Note Debridement Note Wound debrided: #1 Left distal medial thigh. Laterality: Left Wound Grade/Stage: 3. Type of Debridement: Excisional debridement and - Anesthesia Used: 5% Lidocaine Gel Depth: Down to and including healthy tissue and in the subcutaneous layer Percentage of wound debrided: 100 Instrument Used: 5mm curette Tissue Removed: subcutaneous tissue. Severity: Fat Layer Exposed Amount of bleeding with debridement: Mild Bleeding Controlled with: Pressure and Compression and gauze Patient tolerated procedure: Patient tolerated procedure well Post-Debridement Measurements and Additional Note: Post-Debridement Measurements/Treatment MYRA - Nurse 1 - General Ulcer Assessment Start: 12/01/22 13:24 Freq: Status: Active Protocol: LILIYA Activity Type Activity Date Activity User E-sign Co-sign Detail Recorded Client Recorded Date Recorded By Document 12/01/22 13:24 DL [id number] 12/01/22 13:28 DL 12/01/22 13:24 WC - Today's Visit Information Type of service Follow-up Visit (Physician/ADVISOR TO COMMAND IN COMBAT ) Arrival Mode Ambulatory Transfer Assistance None Patient Identification Verified (Name & Yes ) Patient Requires Transmission-Based No Precautions Vital Signs Temperature (97.8 F-99.1 F) 98.3 F Temperature Source Temporal Pulse Rate (60-100) 86 Pulse Location Monitor Respiratory Rate (12-18) 20 H Respiratory rate source Observation Blood Pressure (90/60-120/80) 142/74 H Blood Pressure Mean (mm Hg) 96 Source Monitor History Since Last Visit- (Skip if this is Patient's initial visit) Have you changed medications since your No last visit? Any new allergies or adverse reactions No Had a fall/change in ADL's that may No increase risk of falls Signs or symptoms of abuse and/or No neglect since last visit Have you been in the hospital since your No last visit? Has dressing in place as prescribed Yes Has compression in place as prescribed Yes Has offloadiing in place as prescribed N/A Experienced any changes in pain level or No management Pain Scale: 0-10 Numeric Is Patient Pain Free? Yes MYRA - Nurse 1 - General Ulcer Measurement Start: 12/01/22 13:24 Freq: Status: Active Protocol: Activity Type Activity Date Activity User E-sign Co-sign Detail Recorded Client Recorded Date Recorded By Document 12/01/22 13:24 DL [id number] 12/01/22 13:28 DL 12/01/22 13:24 Wound Center Nurse 1 #1 L Knee -Current Size (cm) - Length 2 -Current Size (cm) - Width 1.8 -Current Size (cm) - Depth 0.1 -Total Square Cm 3.6 -Exudate Amt Small -Exudate Type Sanguineous -Wound Margin Distinct, Outline Attached -Granulation Amt Large (67-100%) -Granulation Quality Red -Necrosis Amt None Present (0 %) -Structure Exposed N/A -Texture (Jannet-wound Skin Appearance) Scarring -Moisture (Jannet-wound Skin Appearance) No Abnormality -Color (Jannet-wound Skin Appearance) No Abnormality -Temperature (Jannet-wound Skin No Abnormality Appearance) (Pt Warm) -Tenderness on Palpation (Jannet-wound No Skin Appearance) -Ulcer Cleansing Soap and Water -Foul Odor after Cleansing No -Anesthetic Used 4% Lidocaine Solution WC - Nurse 2 - General Ulcer CM Notes Start: 12/01/22 13:24 Freq: Status: Active Protocol: Activity Type Activity Date Activity User E-sign Co-sign Detail Recorded Client Recorded Date Recorded By Document 12/01/22 14:05 [id number] 12/01/22 14:07 WENCESLAO 12/01/22 14:05 Wound Center Nurse 2 -Time 14:05 -Correct Patient Yes -Correct Side, Site, Position Yes -Correct Procedure Yes -Procedure Performed Yes -Type of Procedure Debridement -Clinical Debridement Subcutaneous -Tissue Removed Subcutaneous -Post Debridement (cm) - Length 1.8 -Post Debridement (cm) - Width 1.5 -Post Debridement (cm) - Depth 0.1 -Total Square (Post) (cm) 2.70 -Area of Debridement (cm) - Length 1.8 -Area of Debridement (cm) - Width 1.5 -Total Square (Area) (cm) 2.70 -Tunneling No -Circular Undermining No -Wound/Ulcer Outcome Not Healed -Ulcer Cleansing Rinsed/ Irrigated with Saline -Foul Odor after Cleansing No -Bioengineered Tissue Yes -Type of Bioengineered Tissue Theraskin -Expiration Date 04/25/24 -Product Lot Number [id number] -Percent Used 100 -Lot number of Saline Used [id number] -Bleeding Controlled with Pressure -Treatment Response Procedure Tolerated Well -Offloading No -Debridement - Subq, 1st 20sq cm No -Apply Skin Sub - 1st 25 sq cm - Legs 1 -Theraskin (per sq cm) 3 Pain Scale: 0-10 Numeric Is Patient Pain Free? Yes - Nurse 3 - General Ulcer D/C NN Start: 12/01/22 13:24 Freq: Status: Active Protocol: Activity Type Activity Date Activity User E-sign Co-sign Detail Recorded Client Recorded Date Recorded By Document 12/01/22 14:07 WENCESLAO [id number] 12/01/22 14:07 WENCESLAO 12/01/22 14:07 Wound Care Center Nurse 3 #1 L Knee -Ulcer Cleansing Rinsed/ Irrigated with Saline -Foul Odor after Cleansing No -Primary Dressing Applied Mepilex Border -Primary Dressing Covered/Secured with Dry Gauze -Mepilex Border 1 Left -Compression Wrap David Wrap Pain Scale: 0-10 Numeric Is Patient Pain Free? Yes - Visit Discharge Discharge Condition Stable Ambulatory Status Ambulatory Transportation Private Auto Medication Reconcilliation completed & Yes provided to patient/care provider Clinical Summary of Care Provided Yes Assessment/Plan Assessment/Plan (1) Open wound of left thigh: CODE(S): S71.102A - Unspecified open wound, left thigh, initial encounter (2) Traumatic hematoma of left thigh: CODE(S): S70.12XA - Contusion of left thigh, initial encounter (3) Skin necrosis: CODE(S): I96 - Gangrene, not elsewhere classified (4) FDC (current) use of anticoagulants: CODE(S): Z79.01 - FDC (current) use of anticoagulants (5) History of deep vein thrombosis: CODE(S): Z86.718 - Personal history of other venous thrombosis and embolism (6) Long-term current use of tocilizumab: CODE(S): Z79.899 - Other group home (current) drug therapy (7) Rheumatoid arthritis: CODE(S): M06.9 - Rheumatoid arthritis, unspecified PLAN: Plan Patient has a traumatic hematoma wound left distal medial thigh. We had discussed advanced skin substitute grafts to further heal this open surgical hematoma wound. May be able to heal the wound without going back to surgery for an autograft. She was interested. We have received medical approval for this modality. The Thera-skin is applied 10 times in a 12 week period. She tolerated the 8th Thera-skin on 11/09/22. On 11/16/22, no Thera-Skin was placed. If the wound is not totally healed after the 10 treatments, placement of an autograft has better chance of healing because the Thera-Skin has primed the wound base. Operative culture was negative. She was treated perioperatively with Levaquin and has finished them. Prealbumin was 27.0 on 08/13/22. Encourage nutritional supplementation with protein to help the healing process. Today is the 10th application of Thera-Skin after an adequate excisional debridement and irrigation with saline. Lot Number - [id number]. Percent used - 100%. Amount of Thera-Skin used - 3 cm2. Saline Lot Number - [id number]. Expiration - April 25, 2024. The Thera-Skin was secured with Dermabond and Steri-strips, topped with a wound veil that was secured with Steri-strips. This was followed by Mepilex border dressing and a compression david wrap. In this patient I was inclined to proceed with skin grafting a little quicker than normal hoping that the pain would improve since the wound would be covered with the skin graft. Also closing the wound sooner with a skin graft would be helpful for her rheumatoid arthritis. She is being treated with Tocilizumab which can delay wound healing and can worsen infections if present in the wound. Patient had to cancel her last immunologic therapy. She states she can feel more pain from the rheumatoid arthritis. As long as the pain medication is adequate, then would hold off on any immunologic therapy at this time until the wound has healed. If the pain medication ever becomes inadequate and the pain is unbearable, then would proceed with the immunologic therapy. It is given every 4 weeks. In this scenario, would recommend having the immunologic therapy every 8 weeks instead of every 4 weeks to give the remaining wound a chance to finish healing. Followup one week.
[2022-12-07 08:25] VITALS: BP 131/68; PULSE 75; RESP 18; TEMP 35.8
--- NOTE | 2022-12-07 09:32 | PCM.WC.PN ---
History of Present Illness Date of Service: 12/07/22 Chief Complaint: Open surgical hematoma wound left distal medial thigh. History of Wound: 67 year old woman who is on Coumadin for history of blood clots sustained a traumatic hematoma to her left distal medial thigh on , 08/06/22, when her left thigh hit the edge of a table at lunch. Despite david wrap compression and ice packs over the next several days, the hematoma continued to increase in size which put pressure on the overlying skin that turned necrotic. She went to surgery on 08/12/22 where she underwent surgical preparation left distal medial thigh with incision and drainage and evacuation traumatic hematoma with excisional debridement overlying skin necrosis (81 cm2). Wound care has been with the VAC at 125 mmHg continuous suction 3x per week. And now we are applying Thera-skin. 8 applications thus far. Last week we held off on Thera-Skin and used Collagen Hydrogel for wound care. Operative culture - negative. Pathology - Pieces of skin and adipose tissue with focal area of hemorrhage, clinically hematoma. CT Left lower extremity - 08/06/22 - There is a subdermal mass likely a hematoma in the distal thigh anteromedially. Prealbumin from 08/13/22 was 27.0. Encourage nutritional supplementation with protein to help the healing process. Today she denies fever. She is tolerating the debridements without difficulty. Had a discussion with the patient regarding the use of advanced skin substitute grafts such as Thera-skin to help with the healing process. The other option was going back to surgery for a skin graft which she would like to avoid if possible. for a skin graft which she would like to avoid if possible. Her insurance approved the treatments which will be 10 applications of Thera-skin over 12 weeks. On 11/23/22, she zayas had 10 applications of Thera-skin. Progress of Wound: The ulcer is smaller in size. The base is beefy pink with good bleeding. Objective Data Objective Data Vital Signs: Vital Signs Temp Pulse Resp BP 96.4 F L 75 18 131/68 H 12/07/22 08:25 12/07/22 08:25 12/07/22 08:25 12/07/22 08:25 Charges/Coding Procedures Integumentary 111xxx-113xx: [id number] Patrizia subq tissue 20 sq cm/< Debridement Note Debridement Note Wound debrided: #1 Left distal medial thigh. Laterality: Left Wound Grade/Stage: 3. Type of Debridement: Excisional debridement and - Anesthesia Used: 5% Lidocaine Gel Depth: Down to and including healthy tissue and in the subcutaneous layer Percentage of wound debrided: 100 Instrument Used: 3mm curette Tissue Removed: subcutaneous tissue. Severity: Fat Layer Exposed Amount of bleeding with debridement: Mild Bleeding Controlled with: Pressure and Compression and gauze Patient tolerated procedure: Patient tolerated procedure well Post-Debridement Measurements and Additional Note: Post-Debridement Measurements/Treatment - Nurse 1 - General Ulcer Assessment Start: 12/01/22 13:24 Freq: Status: Active Protocol: LILIYA Activity Type Activity Date Activity User E-sign Co-sign Detail Recorded Client Recorded Date Recorded By Document 12/01/22 13:24 DL [id number] 12/01/22 13:28 DL Document 12/07/22 08:25 KW [id number] 12/07/22 08:32 KW 12/01/22 12/07/22 13:24 08:25 - Today's Visit Information Type of service Follow-up Visit Follow-up Visit (Physician/TECHNICAL SALES DIRECTOR (Physician/TECHNICAL SALES DIRECTOR ) ) Arrival Mode Ambulatory Ambulatory Transfer Assistance None None Patient Identification Verified (Name & Yes Yes ) Patient Requires Transmission-Based No No Precautions Vital Signs Temperature (97.8 F-99.1 F) 98.3 F 96.4 F L Temperature Source Temporal Temporal Pulse Rate (60-100) 86 75 Pulse Location Monitor Monitor Respiratory Rate (12-18) 20 H 18 Respiratory rate source Observation Observation Blood Pressure (90/60-120/80) 142/74 H 131/68 H Blood Pressure Mean (mm Hg) 96 89 Source Monitor Monitor Position Sitting Blood Pressure Location Left Arm History Since Last Visit- (Skip if this is Patient's initial visit) Have you changed medications since your No No last visit? Any new allergies or adverse reactions No No Had a fall/change in ADL's that may No No increase risk of falls Signs or symptoms of abuse and/or No No neglect since last visit Have you been in the hospital since your No No last visit? Has dressing in place as prescribed Yes Yes Has compression in place as prescribed Yes Yes Has offloadiing in place as prescribed N/A No Experienced any changes in pain level or No No management Pain Scale: 0-10 Numeric Is Patient Pain Free? Yes Yes WC - Nurse 1 - General Ulcer Measurement Start: 12/01/22 13:24 Freq: Status: Active Protocol: Activity Type Activity Date Activity User E-sign Co-sign Detail Recorded Client Recorded Date Recorded By Document 12/01/22 13:24 DL [id number] 12/01/22 13:28 DL Document 12/07/22 08:25 KW [id number] 12/07/22 08:32 KW 12/01/22 12/07/22 13:24 08:25 Wound Center Nurse 1 #1 L Knee -Combined with other wound No -Current Size (cm) - Length 2 2.5 -Current Size (cm) - Width 1.8 1.3 -Current Size (cm) - Depth 0.1 0.1 -Total Square Cm 3.6 3.25 -Tunneling No -Undermining/Tunneling No -Circular Undermining No -Exudate Amt Small Medium -Exudate Type Sanguineous Serosanguineous -Wound Margin Distinct, Distinct, Outline Outline Attached Attached -Granulation Amt Large (67-100%) Medium (34-66%) -Granulation Quality [place] -Slough/Fibrin Yes -Necrosis Amt None Present (0 Medium (34-66%) %) -Necrotic Tissue Type Adherent Slough -Structure Exposed N/A N/A -Texture (Jannet-wound Skin Appearance) Scarring Assessed,Rash -Moisture (Jannet-wound Skin Appearance) No Abnormality Assessed -Color (Jannet-wound Skin Appearance) No Abnormality Assessed -Temperature (Jannet-wound Skin No Abnormality No Abnormality Appearance) (Pt Warm) (Pt Warm) -Tenderness on Palpation (Jannet-wound No No Skin Appearance) -Ulcer Cleansing Soap and Water Wound Cleanser -Foul Odor after Cleansing No No -Anesthetic Used 4% Lidocaine 5% Lidocaine Solution Gel WC - Nurse 2 - General Ulcer CM Notes Start: 12/01/22 13:24 Freq: Status: Active Protocol: Activity Type Activity Date Activity User E-sign Co-sign Detail Recorded Client Recorded Date Recorded By Document 12/01/22 14:05 [id number] 12/01/22 14:07 Document 12/07/22 08:57 [id number] 12/07/22 08:58 12/01/22 12/07/22 14:05 08:57 Wound Center Nurse 2 #1 L Knee -Time 14:05 08:57 -Correct Patient Yes Yes -Correct Side, Site, Position Yes Yes -Correct Procedure Yes Yes -Procedure Performed Yes Yes -Type of Procedure Debridement Debridement -Clinical Debridement Subcutaneous Subcutaneous -Tissue Removed Subcutaneous Subcutaneous -Post Debridement (cm) - Length 1.8 1.4 -Post Debridement (cm) - Width 1.5 1.3 -Post Debridement (cm) - Depth 0.1 0.1 -Total Square (Post) (cm) 2.70 1.82 -Area of Debridement (cm) - Length 1.8 1.4 -Area of Debridement (cm) - Width 1.5 1.3 -Total Square (Area) (cm) 2.70 1.82 -Tunneling No No -Undermining/Tunneling No -Circular Undermining No No -Wound/Ulcer Outcome Not Healed Not Healed -Ulcer Cleansing Rinsed/ Rinsed/ Irrigated with Irrigated with Saline Saline -Foul Odor after Cleansing No No -Bioengineered Tissue Yes No -Type of Bioengineered Tissue Theraskin -Expiration Date 04/25/24 -Product Lot Number [id number] -Percent Used 100 -Lot number of Saline Used [id number] -Bleeding Controlled with Pressure Pressure -Treatment Response Procedure Procedure Tolerated Well Tolerated Well -Offloading No No -Debridement - Subq, 1st 20sq cm No Yes -Apply Skin Sub - 1st 25 sq cm - Legs 1 -Theraskin (per sq cm) 3 Pain Scale: 0-10 Numeric Is Patient Pain Free? Yes Yes - Nurse 3 - General Ulcer D/C NN Start: 12/01/22 13:24 Freq: Status: Active Protocol: Activity Type Activity Date Activity User E-sign Co-sign Detail Recorded Client Recorded Date Recorded By Document 12/01/22 14:07 [id number] 12/01/22 14:07 Document 12/07/22 09:09 DL [id number] 12/07/22 09:09 DL 12/01/22 12/07/22 14:07 09:09 Wound Care Center Nurse 3 #1 L Knee -Ulcer Cleansing Rinsed/ Rinsed/ Irrigated with Irrigated with Saline Saline -Foul Odor after Cleansing No No -Primary Dressing Applied Mepilex Border Mepilex Border, Promogran Jannet Matter -Primary Dressing Covered/Secured with Dry Gauze -Other Covering david -Mepilex Border 1 1 -Promogran Jannet Matter 1 Left -Compression Wrap David Wrap Treatment Response Procedure Tolerated Well Pain Scale: 0-10 Numeric Is Patient Pain Free? Yes Yes WC - Visit Discharge Discharge Condition Stable Stable Ambulatory Status Ambulatory Ambulatory Transportation Private Auto Private Auto Medication Reconcilliation completed & Yes provided to patient/care provider Clinical Summary of Care Provided Yes Assessment/Plan Assessment/Plan (1) Open wound of left thigh: CODE(S): S71.102A - Unspecified open wound, left thigh, initial encounter (2) Traumatic hematoma of left thigh: CODE(S): S70.12XA - Contusion of left thigh, initial encounter (3) Skin necrosis: CODE(S): I96 - Gangrene, not elsewhere classified (4) retirement (current) use of anticoagulants: CODE(S): 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 We had discussed advanced skin substitute grafts to further heal this open surgical hematoma wound. May be able to heal the wound without going back to surgery for an autograft. She was interested. We have received medical approval for this modality. The Thera-skin is applied 10 times in a 12 week period. She tolerated the 8th Thera-skin on 11/09/22. On 11/16/22, no Thera-Skin was placed. If the wound is not totally healed after the 10 treatments, placement of an autograft has better chance of healing because the Thera-Skin has primed the wound base. Operative culture was negative. She was treated perioperatively with Levaquin and has finished them. Prealbumin was 27.0 on 08/13/22. Encourage nutritional supplementation with protein to help the healing process. She has had 10 applications of Thera-Skin. Wound care will now be moistened Jannet covered with gauze of [place] SAP daily after washing the ulcer with soap and water. She is being treated with Tocilizumab which can delay wound healing and can worsen infections if present in the wound. She had her last infusion last week. Followup one week.
[2022-12-14 13:51] VITALS: BP 136/88; PULSE 93; RESP 18; TEMP 36.3
--- NOTE | 2022-12-14 14:30 | PCM.WC.PN ---
History of Present Illness Date of Service: 12/14/22 Chief Complaint: Open surgical hematoma wound left distal medial thigh. History of Wound: 67 year old woman who is on Coumadin for history of blood clots sustained a traumatic hematoma to her left distal medial thigh on , 08/06/22, when her left thigh hit the edge of a table at lunch. Despite david wrap compression and ice packs over the next several days, the hematoma continued to increase in size which put pressure on the overlying skin that turned necrotic. She went to surgery on 08/12/22 where she underwent surgical preparation left distal medial thigh with incision and drainage and evacuation traumatic hematoma with excisional debridement overlying skin necrosis (81 cm2). Wound care has been with the VAC at 125 mmHg continuous suction 3x per week. And now we are applying Thera-skin. 8 applications thus far. Last week we held off on Thera-Skin and used Collagen Hydrogel for wound care. Operative culture - negative. Pathology - Pieces of skin and adipose tissue with focal area of hemorrhage, clinically hematoma. CT Left lower extremity - 08/06/22 - There is a subdermal mass likely a hematoma in the distal thigh anteromedially. Prealbumin from 08/13/22 was 27.0. Encourage nutritional supplementation with protein to help the healing process. Today she denies fever. She is tolerating the debridements without difficulty. Had a discussion with the patient regarding the use of advanced skin substitute grafts such as Thera-skin to help with the healing process. The other option was going back to surgery for a skin graft which she would like to avoid if possible. for a skin graft which she would like to avoid if possible. Her insurance approved the treatments which will be 10 applications of Thera-skin over 12 weeks. On 11/23/22, she zayas had 10 applications of Thera-skin. Progress of Wound: The ulcer is smaller in size. The base is beefy pink with good bleeding. Objective Data Objective Data Vital Signs: Vital Signs Temp Pulse Resp BP 97.4 F L 93 18 136/88 H 12/14/22 13:51 12/14/22 13:51 12/14/22 13:51 12/14/22 13:51 Charges/Coding Procedures Integumentary 111xxx-113xx: 24499 Patrizia subq tissue 20 sq cm/< Debridement Note Debridement Note Wound debrided: #1 Left distal medial thigh. Laterality: Left Wound Grade/Stage: 3. Type of Debridement: Excisional debridement and - Anesthesia Used: 5% Lidocaine Gel Depth: Down to and including healthy tissue and in the subcutaneous layer Percentage of wound debrided: 100 Instrument Used: 3mm curette Tissue Removed: subcutaneous tissue. Severity: Fat Layer Exposed Amount of bleeding with debridement: Mild Bleeding Controlled with: Pressure and Compression and gauze Patient tolerated procedure: Patient tolerated procedure well Post-Debridement Measurements and Additional Note: Post-Debridement Measurements/Treatment - Nurse 1 - General Ulcer Assessment Start: 12/01/22 13:24 Freq: Status: Active Protocol: LILIYA Activity Type Activity Date Activity User E-sign Co-sign Detail Recorded Client Recorded Date Recorded By Document 12/01/22 13:24 DL [id number] 12/01/22 13:28 DL Document 12/07/22 08:25 KW [id number] 12/07/22 08:32 KW Document 12/14/22 13:51 DL Desktop 12/14/22 13:56 DL 12/01/22 12/07/22 12/14/22 13:24 08:25 13:51 - Today's Visit Information Type of service Follow-up Visit Follow-up Visit Follow-up Visit (Physician/UNDERWRITING SUPPORT SPECIALIST (Physician/UNDERWRITING SUPPORT SPECIALIST (Physician/UNDERWRITING SUPPORT SPECIALIST ) ) ) Arrival Mode Ambulatory Ambulatory Ambulatory Transfer Assistance None None None Patient Identification Verified (Name & Yes Yes Yes ) Patient Requires Transmission-Based No No No Precautions Vital Signs Temperature (97.8 F-99.1 F) 98.3 F 96.4 F L 97.4 F L Temperature Source Temporal Temporal Temporal Pulse Rate (60-100) 86 75 93 Pulse Location Monitor Monitor Monitor Respiratory Rate (12-18) 20 H 18 18 Respiratory rate source Observation Observation Observation Blood Pressure (90/60-120/80) 142/74 H 131/68 H 136/88 H Blood Pressure Mean (mm Hg) 96 89 104 Source Monitor Monitor Position Sitting Blood Pressure Location Left Arm History Since Last Visit- (Skip if this is Patient's initial visit) Have you changed medications since your No No No last visit? Any new allergies or adverse reactions No No No Had a fall/change in ADL's that may No No No increase risk of falls Signs or symptoms of abuse and/or No No No neglect since last visit Have you been in the hospital since your No No No last visit? Has dressing in place as prescribed Yes Yes Yes Has compression in place as prescribed Yes Yes Yes Has offloadiing in place as prescribed N/A No N/A Experienced any changes in pain level or No No management Pain Scale: 0-10 Numeric Is Patient Pain Free? Yes Yes Yes WC - Nurse 1 - General Ulcer Measurement Start: 12/01/22 13:24 Freq: Status: Active Protocol: Activity Type Activity Date Activity User E-sign Co-sign Detail Recorded Client Recorded Date Recorded By Document 12/01/22 13:24 DL [id number] 12/01/22 13:28 DL Document 12/07/22 08:25 KW [id number] 12/07/22 08:32 KW Document 12/14/22 13:51 DL Desktop 12/14/22 13:56 DL 12/01/22 12/07/22 12/14/22 13:24 08:25 13:51 Wound Center Nurse 1 #1 L Knee -Combined with other wound No -Current Size (cm) - Length 2 2.5 1.1 -Current Size (cm) - Width 1.8 1.3 0.8 -Current Size (cm) - Depth 0.1 0.1 0.1 -Total Square Cm 3.6 3.25 0.88 -Tunneling No -Undermining/Tunneling No -Circular Undermining No -Exudate Amt Small Medium Small -Exudate Type Sanguineous Serosanguineous Serosanguineous -Wound Margin Distinct, Distinct, Distinct, Outline Outline Outline Attached Attached Attached -Granulation Amt Large (67-100%) Medium (34-66%) Large (67-100%) -Granulation Quality Red [place] -Slough/Fibrin Yes -Necrosis Amt None Present (0 Medium (34-66%) Small (1-33%) %) -Necrotic Tissue Type Adherent Slough Adherent Slough -Structure Exposed N/A N/A N/A -Texture (Jannet-wound Skin Appearance) Scarring Assessed,Rash Scarring -Moisture (Jannet-wound Skin Appearance) No Abnormality Assessed No Abnormality -Color (Jannet-wound Skin Appearance) No Abnormality Assessed No Abnormality -Temperature (Jannet-wound Skin No Abnormality No Abnormality No Abnormality Appearance) (Pt Warm) (Pt Warm) (Pt Warm) -Tenderness on Palpation (Jannet-wound No No No Skin Appearance) -Ulcer Cleansing Soap and Water Wound Cleanser Rinsed/ Irrigated with Saline -Foul Odor after Cleansing No No No -Anesthetic Used 4% Lidocaine 5% Lidocaine 5% Lidocaine Solution Gel Gel WC - Nurse 2 - General Ulcer CM Notes Start: 12/01/22 13:24 Freq: Status: Active Protocol: Activity Type Activity Date Activity User E-sign Co-sign Detail Recorded Client Recorded Date Recorded By Document 12/01/22 14:05 [id number] 12/01/22 14:07 Document 12/07/22 08:57 [id number] 12/07/22 08:58 Document 12/14/22 14:18 Desktop 12/14/22 14:20 12/01/22 12/07/22 12/14/22 14:05 08:57 14:18 Wound Center Nurse 2 #1 L Knee -Time 14:05 08:57 14:18 -Correct Patient Yes Yes Yes -Correct Side, Site, Position Yes Yes Yes -Correct Procedure Yes Yes Yes -Procedure Performed Yes Yes Yes -Type of Procedure Debridement Debridement Debridement -Clinical Debridement Subcutaneous Subcutaneous Subcutaneous -Tissue Removed Subcutaneous Subcutaneous Subcutaneous -Post Debridement (cm) - Length 1.8 1.4 1.1 -Post Debridement (cm) - Width 1.5 1.3 1.1 -Post Debridement (cm) - Depth 0.1 0.1 0.1 -Total Square (Post) (cm) 2.70 1.82 1.21 -Area of Debridement (cm) - Length 1.8 1.4 1.1 -Area of Debridement (cm) - Width 1.5 1.3 1.1 -Total Square (Area) (cm) 2.70 1.82 1.21 -Tunneling No No No -Undermining/Tunneling No No -Circular Undermining No No No -Wound/Ulcer Outcome Not Healed Not Healed Not Healed -Ulcer Cleansing Rinsed/ Rinsed/ Rinsed/ Irrigated with Irrigated with Irrigated with Saline Saline Saline -Foul Odor after Cleansing No No No -Bioengineered Tissue Yes No No -Type of Bioengineered Tissue Theraskin -Expiration Date 04/25/24 -Product Lot Number [id number] -Percent Used 100 -Lot number of Saline Used [id number] -Bleeding Controlled with Pressure Pressure Pressure -Treatment Response Procedure Procedure Procedure Tolerated Well Tolerated Well Tolerated Well -Offloading No No No -Debridement - Subq, 1st 20sq cm No Yes Yes -Apply Skin Sub - 1st 25 sq cm - Legs 1 -[place]askin (per sq cm) 3 Pain Scale: 0-10 Numeric Is Patient Pain Free? Yes Yes Yes - Nurse 3 - General Ulcer D/C NN Start: 12/01/22 13:24 Freq: Status: Active Protocol: Activity Type Activity Date Activity User E-sign Co-sign Detail Recorded Client Recorded Date Recorded By Document 12/01/22 14:07 [id number] 12/01/22 14:07 Document 12/07/22 09:09 DL [id number] 12/07/22 09:09 DL Document 12/14/22 14:21 Desktop 12/14/22 14:21 12/01/22 12/07/22 12/14/22 14:07 09:09 14:21 Wound Care Center Nurse 3 #1 L Knee -Ulcer Cleansing Rinsed/ Rinsed/ Rinsed/ Irrigated with Irrigated with Irrigated with Saline Saline Saline -Foul Odor after Cleansing No No No -Primary Dressing Applied Mepilex Border Mepilex Border, Mepilex Border, Promogran Promogran Jannet Matter Jannet Matter -Primary Dressing Covered/Secured with Dry Gauze -Other Covering david -Mepilex Border 1 1 1 -Promogran Jannet Matter 1 1 Left -Compression Wrap David Wrap Treatment Response Procedure Tolerated Well Pain Scale: 0-10 Numeric Is Patient Pain Free? Yes Yes Yes - Visit Discharge Discharge Condition Stable Stable Stable Ambulatory Status Ambulatory Ambulatory Ambulatory Transportation Private Auto Private Auto Private Auto Medication Reconcilliation completed & Yes Yes provided to patient/care provider Clinical Summary of Care Provided Yes Yes Assessment/Plan Assessment/Plan (1) Open wound of left thigh: CODE(S): S71.102A - Unspecified open wound, left thigh, initial encounter (2) Traumatic hematoma of left thigh: CODE(S): S70.12XA - Contusion of left thigh, initial encounter (3) Skin necrosis: CODE(S): I96 - Gangrene, not elsewhere classified (4) nursing home (current) use of anticoagulants: CODE(S): Z79.01 - healthcare representative (current) use of anticoagulants (5) History of deep vein thrombosis: CODE(S): Z86.718 - Personal history of other venous thrombosis and embolism (6) Long-term current use of tocilizumab: CODE(S): Z79.899 - Other detention (current) drug therapy (7) Rheumatoid arthritis: CODE(S): M06.9 - Rheumatoid arthritis, unspecified PLAN: Plan Patient has a traumatic hematoma wound left distal medial thigh. We had discussed advanced skin substitute grafts to further heal this open surgical hematoma wound. May be able to heal the wound without going back to surgery for an autograft. She was interested. We have received medical approval for this modality. The Thera-skin is applied 10 times in a 12 week period. She tolerated the 10 treatments of Thera-skin. Wound care will now be moistened Jannet covered with gauze of [place] SAP daily after washing the ulcer with soap and water. Operative culture was negative. She was treated perioperatively with Levaquin and has finished them. Prealbumin was 27.0 on 08/13/22. Encourage nutritional supplementation with protein to help the healing process. She is being treated with Tocilizumab which can delay wound healing and can worsen infections if present in the wound. She recently had an infusion 2 weeks ago. Followup two weeks.
== END 2022-12-26 23:59 | disposition home or self-care (01) ==
LOC: WC 14:00
PROVIDERS: PCP Family Medicine Geriatric Medicine; Referring Provider Surgery; Visit Provider Surgery
DX: I96 Gangrene, not elsewhere classified (principal); M06.9 Rheumatoid arthritis, unspecified; S71.102A Unspecified open wound, left thigh, initial encounter; S70.12XS Contusion of left thigh, sequela; W22.03XS Walked into furniture, sequela; Z79.01 Long term (current) use of anticoagulants; Z79.899 Other long term (current) drug therapy; Z86.718 Personal history of other venous thrombosis and embolism
CPT/HCPCS: 11042; 15271; Q4121

== ENCOUNTER → 2022-12-31 | Outpatient (CLI) | payer MEDICARE, OTHER, SELFPAY ==
[2022-12-31 17:20] LABS: Absolute Lymphocyte Count 2.28 X10^3/uL (0.83-4.51); Absolute Neutrophil Count 2.4 X10^3/uL (2.0-7.7); Basophil# 0.05 X10^3/uL; Basophil% 0.9 % (0-1); Eosinophil# 0.12 X10^3/uL; Eosinophils% 2.2 % (0-5); Hemoglobin 13.6 g/dL (12.0-15.0); Lymphocyte # 2.28 X10^3/ul (0.83-4.51); Lymphocyte % 41.6 % (19-41); Mean Corp Hgb Conc 30.9 g/dL (32-36); Mean Corpuscular Hgb 28.7 pg (27.0-32.0); Mean Corpuscular Volume 92.8 fL (81-99); Mean Platelet Vol. 9.6 fl (6.2-12.0); Monocyte# 0.59 X10^3/uL; Monocyte% 10.8 % (0-10); NRBC Flagged by Analyzer 0 % (0-5); Neutrophil # 2.43 X10^3/uL (2.7-7.7); Neutrophil % 44.3 % (47-70); Platelet Count 246 K/mm3 (150-450); RBC Distribution Width CV 13.8 % (11.6-14.6); Red Blood Count 4.74 M/mm3 (4.2-5.4); White Blood Count 5.5 K/mm3 (4.4-11.0)
[2022-12-31 18:24] LABS: Erythrocyte Sedimentation Rate 1 mm/hr (0-30)
[2022-12-31 18:27] LABS: ALB/GLOB Ratio 1.1 RATIO (0.9-2.4); AST(SGOT) 27 U/L (15-37); Alanine Aminotransfer ALT/SGPT 23 U/L (13-56); Albumin, Serum 3.6 g/dL (3.2-5.0); Alkaline Phosphatase 101 U/L (45-117); Anion Gap 4 (5-15); BUN 9 mg/dL (7-18); BUN/Creat Ratio 11.1 RATIO (10-20); CRP < 2.90 mg/L (0.0-3.0); Calcium,Total 8.4 mg/dL (8.5-10.1); Chloride 104 mmol/L (98-107); Creatinine, Serum 0.81 mg/dL (0.55-1.02); EST Glomerular Filtration Rate 74 mL/min (>60); Est Glom Filt Rate - Afr Amer 90 mL/min (>60); Globulin 3.3 g/dL (2.2-4.2); Glucose 101 mg/dL (74-106); Protein, Total 6.9 g/dL (6.4-8.2); Sodium Level 138 mmol/L (136-145)
== END | disposition home or self-care (01) ==
PROVIDERS: PCP Family Medicine Geriatric Medicine; Visit Provider Family Medicine Geriatric Medicine
DX: M06.9 Rheumatoid arthritis, unspecified (principal); R53.83 Other fatigue
CPT/HCPCS: 36415; 80053; 85025; 85652; 86140

== ENCOUNTER → 2023-01-20 | Outpatient (CLI) | payer MEDICARE, OTHER, SELFPAY ==
[2023-01-20 10:35] LABS: Absolute Lymphocyte Count 2.04 X10^3/uL (0.83-4.51); Absolute Neutrophil Count 1.5 X10^3/uL (2.0-7.7); Basophil# 0.05 X10^3/uL; Basophil% 1.2 % (0-1); Eosinophil# 0.14 X10^3/uL; Eosinophils% 3.3 % (0-5); Hematocrit 40.5 % (37-47); Hemoglobin 12.6 g/dL (12.0-15.0); Lymphocyte # 2.04 X10^3/ul (0.83-4.51); Lymphocyte % 48.7 % (19-41); Mean Corp Hgb Conc 31.1 g/dL (32-36); Mean Corpuscular Hgb 28.9 pg (27.0-32.0); Mean Corpuscular Volume 92.9 fL (81-99); Mean Platelet Vol. 9.5 fl (6.2-12.0); Monocyte# 0.45 X10^3/uL; Monocyte% 10.7 % (0-10); NRBC Flagged by Analyzer 0 % (0-5); Neutrophil % 35.9 % (47-70); Platelet Count 356 K/mm3 (150-450); RBC Distribution Width CV 14.8 % (11.6-14.6); RBC Distribution Width SD 51.3 fl (35.1-43.9); Red Blood Count 4.36 M/mm3 (4.2-5.4); White Blood Count 4.2 K/mm3 (4.4-11.0)
[2023-01-20 10:48] LABS: Vitamin D,25 Hydroxy 23.3 ng/mL
[2023-01-20 11:05] LABS: AST(SGOT) 16 U/L (15-37); Alanine Aminotransfer ALT/SGPT 18 U/L (13-56); Albumin, Serum 3.3 g/dL (3.2-5.0); Alkaline Phosphatase 88 U/L (45-117); Anion Gap 5 (5-15); BUN 17 mg/dL (7-18); BUN/Creat Ratio 20.3 RATIO (10-20); Calcium,Total 8.1 mg/dL (8.5-10.1); Chloride 107 mmol/L (98-107); Creatinine, Serum 0.84 mg/dL (0.55-1.02); EST Glomerular Filtration Rate 71 mL/min (>60); Est Glom Filt Rate - Afr Amer 86 mL/min (>60); Globulin 3.3 g/dL (2.2-4.2); Glucose 75 mg/dL (74-106); Potassium 3.8 mmol/L (3.5-5.1); Protein, Total 6.6 g/dL (6.4-8.2); Sodium Level 141 mmol/L (136-145); Thyroid Stim Hormone (TSH) 1.13 uIU/mL (0.358-3.74)
[2023-01-25 13:37] VITALS: BP 117/77; PULSE 100; RESP 18; TEMP 36.3
== END | disposition home or self-care (01) ==
LOC: POLAB3 09:04
PROVIDERS: PCP Family Medicine Geriatric Medicine; Visit Provider Family Medicine Geriatric Medicine
DX: E55.9 Vitamin D deficiency, unspecified (principal); R53.83 Other fatigue
CPT/HCPCS: 36415; 80053; 82306; 84443; 85025

== ENCOUNTER 2023-01-25 13:45 | Outpatient (RCR) | payer MEDICARE, OTHER, SELFPAY ==
[2022-12-27 00:23] VITALS: BP 136/88; PULSE 93; RESP 18; TEMP 36.3
[2022-12-28 13:52] VITALS: BP 149/70; PULSE 78; RESP 20; TEMP 36
--- NOTE | 2022-12-28 16:35 | PN.PCM_ITS ---
History of Present Illness Date of Service: 12/28/22 Chief Complaint: Open surgical hematoma wound left distal medial thigh. History of Wound: 67 year old woman who is on Coumadin for history of blood clots sustained a traumatic hematoma to her left distal medial thigh on , 08/06/22, when her left thigh hit the edge of a table at lunch. Despite robert wrap compression and ice packs over the next several days, the hematoma continued to increase in size which put pressure on the overlying skin that turned necrotic. She went to surgery on 08/12/22 where she underwent surgical preparation left distal medial thigh with incision and drainage and evacuation traumatic hematoma with excisional debridement overlying skin necrosis (81 cm2). Wound care is Jannet. She finished 10 applications of Thera-Skin on 11/23/22. Operative culture - negative. Pathology - Pieces of skin and adipose tissue with focal area of hemorrhage, clinically hematoma. CT Left lower extremity - 08/06/22 - There is a subdermal mass likely a hematoma in the distal thigh anteromedially. Prealbumin from 08/13/22 was 27.0. Encourage nutritional supplementation with protein to help the healing process. Today she denies fever. She is tolerating the debridements without difficulty. Had a discussion with the patient regarding the use of advanced skin substitute grafts such as Thera-skin to help with the healing process. The other option was going back to surgery for a skin graft which she would like to avoid if possible. for a skin graft which she would like to avoid if possible. Her insurance approved the treatments which will be 10 applications of Thera-skin over 12 weeks. On 11/23/22, she has had 10 applications of Thera-skin. Progress of Wound: Continues to improve slowly. Objective Data Objective Data Vital Signs: Vital Signs Temp Pulse Resp BP 96.8 F L 78 20 H 149/70 H 12/28/22 13:52 12/28/22 13:52 12/28/22 13:52 12/28/22 13:52 Prealbumin was 27.0 on 08/13/22. Encourage nutritional supplementation with protein to help the healing process. Lab / Micro Data Attestation: I reviewed the patient's lab results. Charges/Coding Procedures Integumentary 111xxx-113xx: [id number] Patrizia subq tissue 20 sq cm/< (ICD-10 - L97.129, S70.12xA, I96, Z79.01, Z86.718, Z79.899, M06.9) Debridement Note Debridement Note Wound debrided: #1 Left distal medial thigh. Laterality: Left Wound Grade/Stage: 3. Type of Debridement: Excisional debridement Anesthesia Used: 5% Lidocaine Gel Depth: Down to and including healthy tissue and in the subcutaneous layer Percentage of wound debrided: 100 Instrument Used: 3mm curette Tissue Removed: subcutaneous tissue. Severity: Fat Layer Exposed Amount of bleeding with debridement: Mild Bleeding Controlled with: Pressure and Compression and gauze Patient tolerated procedure: Patient tolerated procedure well Post-Debridement Measurements and Additional Note: Post-Debridement Measurements/Treatment MYRA - Nurse 1 - General Ulcer Assessment Start: 12/28/22 13:50 Freq: Status: Active Protocol: LILIYA Activity Type Activity Date Activity User E-sign Co-sign Detail Recorded Client Recorded Date Recorded By Document 12/28/22 13:52 PL [id number] 12/28/22 13:53 PL 12/28/22 13:52 WC - Today's Visit Information Type of service Follow-up Visit (Physician/PREFORMS LAMINATOR ) Arrival Mode Ambulatory Transfer Assistance None Patient Identification Verified (Name & Yes ) Patient Requires Transmission-Based No Precautions Safety Precautions NA Vital Signs Temperature (97.8 F-99.1 F) 96.8 F L Temperature Source Temporal Pulse Rate (60-100) 78 Respiratory Rate (12-18) 20 H Blood Pressure (90/60-120/80) 149/70 H Blood Pressure Mean (mm Hg) 96 History Since Last Visit- (Skip if this is Patient's initial visit) Have you changed medications since your No last visit? Any new allergies or adverse reactions No Had a fall/change in ADL's that may No increase risk of falls Signs or symptoms of abuse and/or No neglect since last visit Have you been in the hospital since your No last visit? Has dressing in place as prescribed Yes Has compression in place as prescribed No Has offloadiing in place as prescribed N/A Experienced any changes in pain level or No management Pain Scale: 0-10 Numeric Is Patient Pain Free? Yes MYRA - Nurse 2 - General Ulcer CM Notes Start: 12/28/22 13:50 Freq: Status: Active Protocol: Activity Type Activity Date Activity User E-sign Co-sign Detail Recorded Client Recorded Date Recorded By Document 12/28/22 14:01 Laptop 12/28/22 14:05 12/28/22 14:01 Wound Center Nurse 2 #1 L Knee -Time 14:01 -Correct Patient Yes -Correct Side, Site, Position Yes -Correct Procedure Yes -Procedure Performed Yes -Type of Procedure Debridement -Clinical Debridement Subcutaneous -Tissue Removed Subcutaneous -Post Debridement (cm) - Length 0.4 -Post Debridement (cm) - Width 0.3 -Post Debridement (cm) - Depth 0.1 -Total Square (Post) (cm) 0.12 -Area of Debridement (cm) - Length 0.4 -Area of Debridement (cm) - Width 0.3 -Total Square (Area) (cm) 0.12 -Tunneling No -Undermining/Tunneling No -Circular Undermining No -Wound/Ulcer Outcome Not Healed -Ulcer Cleansing Rinsed/ Irrigated with Saline -Foul Odor after Cleansing No -Bioengineered Tissue No -Bleeding Controlled with Pressure -Treatment Response Procedure Tolerated Well -Offloading No -Debridement - Subq, 1st 20sq cm Yes Pain Scale: 0-10 Numeric Is Patient Pain Free? Yes - Nurse 3 - General Ulcer D/C NN Start: 12/28/22 13:50 Freq: Status: Active Protocol: Activity Type Activity Date Activity User E-sign Co-sign Detail Recorded Client Recorded Date Recorded By Document 12/28/22 14:06 Laptop 12/28/22 14:06 12/28/22 14:06 Wound Care Center Nurse 3 #1 L Knee -Ulcer Cleansing Rinsed/ Irrigated with Saline -Primary Dressing Applied Mepilex Border -Mepilex Border 1 Pain Scale: 0-10 Numeric Is Patient Pain Free? 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 She had her last placement of Thera-Skin on 11/23/22. If the wound is not totally healed after the 10 treatments, placement of an autograft has better chance of healing because the Thera-Skin has primed the wound base. Operative culture was negative. She was treated perioperatively with Levaquin and has finished them. We had been placing Jannet on the ulcer. It has started to dry out the ulcer. Will change wound car to Hydrogel. Prealbumin was 27.0 on 08/13/22. Encourage nutritional supplementation with protein to help the healing process. In this patient I was inclined to proceed with skin grafting a little quicker than normal hoping that the pain would improve since the wound would be covered with the skin graft. Also closing the wound sooner with a skin graft would be helpful for her rheumatoid arthritis. She is being treated with Tocilizumab which can delay wound healing and can worsen infections if present in the wound. I had talked to her Neuropsychiatrist and said it was ok to give the immunologic medication. If the ulcer starts to worsen, will have him stop the treatments (monthly). She noticed improvement in her arthritis pain afterward. She is due for another injection this week. She was supposed to return to work middle of this month. Since the ulcer has not totally healed, I will extend her being off work until January 27, 2023 (tentative). Followup 2 weeks.
[2023-01-11 13:21] VITALS: BP 147/82; PULSE 74; RESP 16; TEMP 35.6
--- NOTE | 2023-01-11 15:50 | PCM.WC.PN ---
History of Present Illness Date of Service: 01/11/23 Chief Complaint: Nonhealing hematoma ulcer left distal medial thigh. History of Wound: 67 year old woman who is on Coumadin for history of blood clots sustained a traumatic hematoma to her left distal medial thigh on , 08/06/22, when her left thigh hit the edge of a table at lunch. Despite robert wrap compression and ice packs over the next several days, the hematoma continued to increase in size which put pressure on the overlying skin that turned necrotic. She went to surgery on 08/12/22 where she underwent surgical preparation left distal medial thigh with incision and drainage and evacuation traumatic hematoma with excisional debridement overlying skin necrosis (81 cm2). Wound care is Collagen Hydrogel. She finished 10 applications of Thera-Skin on 11/23/22. Operative culture - negative. Pathology - Pieces of skin and adipose tissue with focal area of hemorrhage, clinically hematoma. CT Left lower extremity - 08/06/22 - There is a subdermal mass likely a hematoma in the distal thigh anteromedially. Prealbumin from 08/13/22 was 27.0. Encourage nutritional supplementation with protein to help the healing process. Today she denies fever. She is tolerating the debridements without difficulty. Had a discussion with the patient regarding the use of advanced skin substitute grafts such as Thera-skin to help with the healing process. The other option was going back to surgery for a skin graft which she would like to avoid if possible. Her insurance approved the treatments which will be 10 applications of Thera-skin over 12 weeks. On 11/23/22, she had her 10th application of Thera-skin. Progress of Wound: Continues to improve slowly. Objective Data Objective Data Vital Signs: Vital Signs Temp Pulse Resp BP 96.1 F L 74 16 147/82 H 01/11/23 13:21 01/11/23 13:21 01/11/23 13:21 01/11/23 13:21 Prealbumin was 27.0 on 08/13/22. Encourage nutritional supplementation with protein to help the healing process. Lab / Micro Data Attestation: I reviewed the patient's lab results. Charges/Coding Procedures Integumentary 111xxx-113xx: 06226 Patrizia subq tissue 20 sq cm/< (ICD-10 - L97.129, S70.12xA, I96, Z79.01, Z86.718, Z79.899, M06.9) Debridement Note Debridement Note Wound debrided: #1 Left distal medial thigh. Laterality: Left Wound Grade/Stage: 3. Type of Debridement: Excisional debridement Anesthesia Used: 5% Lidocaine Gel Depth: Down to and including healthy tissue and in the subcutaneous layer Percentage of wound debrided: 100 Instrument Used: 3mm curette Tissue Removed: subcutaneous tissue. Severity: Fat Layer Exposed Amount of bleeding with debridement: Mild Bleeding Controlled with: Pressure and Compression and gauze Patient tolerated procedure: Patient tolerated procedure well (A wound culture was done today.) Post-Debridement Measurements and Additional Note: Post-Debridement Measurements/Treatment - Nurse 1 - General Ulcer Assessment Start: 12/28/22 13:50 Freq: Status: Active Protocol: LILIYA Activity Type Activity Date Activity User E-sign Co-sign Detail Recorded Client Recorded Date Recorded By Document 12/28/22 13:52 PL [id number] 12/28/22 13:53 PL Document 01/11/23 13:21 Laptop 01/11/23 13:23 12/28/22 01/11/23 13:52 13:21 - Today's Visit Information Type of service Follow-up Visit Follow-up Visit (Physician/REPRODUCTION ARTIST (Physician/REPRODUCTION ARTIST ) ) Arrival Mode Ambulatory Ambulatory Transfer Assistance None Patient Identification Verified (Name & Yes Yes ) Patient Requires Transmission-Based No No Precautions Safety Precautions NA Vital Signs Temperature (97.8 F-99.1 F) 96.8 F L 96.1 F L Temperature Source Temporal Temporal Pulse Rate (60-100) 78 74 Pulse Location Monitor Respiratory Rate (12-18) 20 H 16 Respiratory rate source Observation Blood Pressure (90/60-120/80) 149/70 H 147/82 H Blood Pressure Mean (mm Hg) 96 103 Source Monitor Position Semi-Fowlers Blood Pressure Location Left Arm History Since Last Visit- (Skip if this is Patient's initial visit) Have you changed medications since your No No last visit? Any new allergies or adverse reactions No No Had a fall/change in ADL's that may No No increase risk of falls Signs or symptoms of abuse and/or No No neglect since last visit Have you been in the hospital since your No No last visit? Has dressing in place as prescribed Yes Yes Has compression in place as prescribed No N/A Has offloadiing in place as prescribed N/A N/A Experienced any changes in pain level or No No management Left Footwear Regular Shoe Right Footwear Regular Shoe Pain Scale: 0-10 Numeric Is Patient Pain Free? Yes Yes - Nurse 1 - General Ulcer Measurement Start: 12/28/22 13:50 Freq: Status: Active Protocol: Activity Type Activity Date Activity User E-sign Co-sign Detail Recorded Client Recorded Date Recorded By Document 01/11/23 13:21 Laptop 01/11/23 13:23 01/11/23 13:21 Wound Center Nurse 1 #1 L Knee -Combined with other wound No -Current Size (cm) - Length 0.5 -Current Size (cm) - Width 0.3 -Current Size (cm) - Depth 0.1 -Total Square Cm 0.15 -Photo Taken Yes -Epithelialization Large 67-100% -Tunneling No -Undermining/Tunneling No -Circular Undermining No -Exudate Amt Small -Exudate Type Serosanguineous -Wound Margin Flat & Intact -Granulation Amt Large (67-100%) -Granulation Quality [place],Red -Slough/Fibrin Yes -Necrosis Amt Small (1-33%) -Necrotic Tissue Type Adherent Slough -Structure Exposed N/A -Texture (Jannet-wound Skin Appearance) Assessed, Localized Edema -Moisture (Jannet-wound Skin Appearance) Assessed,Dry/ Scaly -Color (Jannet-wound Skin Appearance) Assessed -Temperature (Jannet-wound Skin No Abnormality Appearance) (Pt Warm) -Tenderness on Palpation (Jannet-wound No Skin Appearance) -Ulcer Cleansing Rinsed/ Irrigated with Saline -Anesthetic Used 5% Lidocaine Gel Lower Limb Edema Present NA - Nurse 2 - General Ulcer CM Notes Start: 12/28/22 13:50 Freq: Status: Active Protocol: Activity Type Activity Date Activity User E-sign Co-sign Detail Recorded Client Recorded Date Recorded By Document 12/28/22 14:01 Laptop 12/28/22 14:05 Document 01/11/23 13:58 Laptop 01/11/23 13:59 12/28/22 01/11/23 14:01 13:58 Wound Center Nurse 2 #1 L Knee -Time 14:01 13:58 -Correct Patient Yes Yes -Correct Side, Site, Position Yes Yes -Correct Procedure Yes Yes -Procedure Performed Yes Yes -Type of Procedure Debridement Debridement -Clinical Debridement Subcutaneous Subcutaneous -Tissue Removed Subcutaneous Subcutaneous -Post Debridement (cm) - Length 0.4 1.2 -Post Debridement (cm) - Width 0.3 0.8 -Post Debridement (cm) - Depth 0.1 0.1 -Total Square (Post) (cm) 0.12 0.96 -Area of Debridement (cm) - Length 0.4 1.2 -Area of Debridement (cm) - Width 0.3 0.8 -Total Square (Area) (cm) 0.12 0.96 -Tunneling No No -Undermining/Tunneling No No -Circular Undermining No No -Wound/Ulcer Outcome Not Healed Not Healed -Ulcer Cleansing Rinsed/ Rinsed/ Irrigated with Irrigated with Saline Saline -Foul Odor after Cleansing No No -Bioengineered Tissue No No -Bleeding Controlled with Pressure Pressure -Treatment Response Procedure Procedure Tolerated Well Tolerated Well -Offloading No No -Debridement - Subq, 1st 20sq cm Yes Yes Pain Scale: 0-10 Numeric Is Patient Pain Free? Yes Yes - Nurse 3 - General Ulcer D/C NN Start: 12/28/22 13:50 Freq: Status: Active Protocol: Activity Type Activity Date Activity User E-sign Co-sign Detail Recorded Client Recorded Date Recorded By Document 12/28/22 14:06 Laptop 12/28/22 14:06 Document 01/11/23 14:10 [facility] Desktop 01/11/23 14:11 [facility] 12/28/22 01/11/23 14:06 14:10 Wound Care Center Nurse 3 #1 L Knee -Ulcer Cleansing Rinsed/ Rinsed/ Irrigated with Irrigated with Saline Saline -Foul Odor after Cleansing No -Primary Dressing Applied Mepilex Border Mepilex Border -Other Dressing hydrogel -Mepilex Border 1 1 Treatment Response Procedure Tolerated Well Pain Scale: 0-10 Numeric Is Patient Pain Free? 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 (3) Skin necrosis: CODE(S): I96 - Gangrene, not elsewhere classified (4) halfway (current) use of anticoagulants: CODE(S): Z79.01 - terminal gauger (current) use of anticoagulants (5) History of deep vein thrombosis: CODE(S): Z86.718 - Personal history of other venous thrombosis and embolism (6) Long-term current use of tocilizumab: CODE(S): Z79.899 - Other senior living (current) drug therapy (7) Rheumatoid arthritis: CODE(S): M06.9 - Rheumatoid arthritis, unspecified PLAN: Plan Patient has a traumatic hematoma ulcer left distal medial thigh after operative debridement and placement of Thera-Skin advanced skin substitute grafts (10 applications). She had her last placement of Thera-Skin on 11/23/22. Since the ulcer is not totally healed after the 10 treatments, placement of an autograft will have a better chance of healing because the Thera-Skin has primed the wound base. Operative culture was negative. She was treated perioperatively with Levaquin and has finished them. Continue Collagen Hydrogel to the ulcer daily. Prealbumin was 27.0 on 08/13/22. Encourage nutritional supplementation with protein to help the healing process. In this patient I was inclined to proceed with skin grafting a little quicker than normal hoping that the pain would improve since the wound would be covered with the skin graft. Also closing the wound sooner with a skin graft would be helpful for her rheumatoid arthritis. She is being treated with Tocilizumab which can delay wound healing and can worsen infections if present in the wound. I had talked to her Rehabilitation Counsellor and said it was ok to give the immunologic medication. If the ulcer starts to worsen, will have him stop the treatments (monthly). She noticed improvement in her arthritis pain afterward. She is anxious to get back to work. She can return to work with no restrictions. She said returning to work tomorrow, 01/02/23, would be fine. While at work she will wear her compression robert wrap and try to elevate her left leg when sitting and try to minimize standing while at work. Today I obtained a wound culture. A positive culture will necessitate antibiotic therapy. Followup one week.
[2023-01-18 13:26] VITALS: BP 128/68; PULSE 94; RESP 18; TEMP 36.4
--- NOTE | 2023-01-18 16:34 | PCM.WC.PN ---
History of Present Illness Date of Service: 01/18/23 Chief Complaint: Nonhealing hematoma ulcer left distal medial thigh. History of Wound: 68 year old woman who is on Coumadin for history of blood clots sustained a traumatic hematoma to her left distal medial thigh on , 08/06/22, when her left thigh hit the edge of a table at lunch. Despite robert wrap compression and ice packs over the next several days, the hematoma continued to increase in size which put pressure on the overlying skin that turned necrotic. She went to surgery on 08/12/22 where she underwent surgical preparation left distal medial thigh with incision and drainage and evacuation traumatic hematoma with excisional debridement overlying skin necrosis (81 cm2). Wound care is Collagen Hydrogel. She finished 10 applications of Thera-Skin on 11/23/22. Operative culture - negative. Wound culture from 01/12/23 was negative for bacterial growth. Pathology - Pieces of skin and adipose tissue with focal area of hemorrhage, clinically hematoma. CT Left lower extremity - 08/06/22 - There is a subdermal mass likely a hematoma in the distal thigh anteromedially. Prealbumin from 08/13/22 was 27.0. Encourage nutritional supplementation with protein to help the healing process. Today she denies fever. She is tolerating the debridements without difficulty. Had a discussion with the patient regarding the use of advanced skin substitute grafts such as Thera-skin to help with the healing process. The other option was going back to surgery for a skin graft which she would like to avoid if possible. Her insurance approved the treatments which will be 10 applications of Thera-skin over 12 weeks. On 11/23/22, she had her 10th application of Thera-skin. Progress of Wound: Continues to improve slowly. It is smaller in size today, ulcer bed is a beefy pink color. Objective Data Objective Data Vital Signs: Vital Signs Temp Pulse Resp BP 97.5 F L 94 18 128/68 H 01/18/23 13:26 01/18/23 13:26 01/18/23 13:26 01/18/23 13:26 Lab / Micro Data Micro: Microbiology 01/12/23 14:00 Wound - Leg, Left Gram Stain - Final 01/12/23 14:00 Wound - Leg, Left Wound Culture - Final No growth aerobically. 01/12/23 14:00 Wound - Leg, Left Anaerobic Culture - Final No growth in 5 days. Charges/Coding Procedures Integumentary 111xxx-113xx: 14754 Patrizia subq tissue 20 sq cm/< Debridement Note Debridement Note Wound debrided: #1 Left distal medial thigh. Laterality: Left Wound Grade/Stage: 3. Type of Debridement: Excisional debridement Anesthesia Used: 5% Lidocaine Gel Depth: Down to and including healthy tissue and in the subcutaneous layer Percentage of wound debrided: 100 Instrument Used: 3mm curette Tissue Removed: subcutaneous tissue. Severity: Fat Layer Exposed Amount of bleeding with debridement: Mild Bleeding Controlled with: Pressure and Compression and gauze Patient tolerated procedure: Patient tolerated procedure well (A wound culture was done today.) Post-Debridement Measurements and Additional Note: Post-Debridement Measurements/Treatment - Nurse 1 - General Ulcer Assessment Start: 12/28/22 13:50 Freq: Status: Active Protocol: LILIYA Activity Type Activity Date Activity User E-sign Co-sign Detail Recorded Client Recorded Date Recorded By Document 12/28/22 13:52 PL [id number] 12/28/22 13:53 PL Document 01/11/23 13:21 JF Laptop 01/11/23 13:23 Document 01/18/23 13:26 DL Desktop 01/18/23 13:31 DL 12/28/22 01/11/23 01/18/23 13:52 13:21 13:26 - Today's Visit Information Type of service Follow-up Visit Follow-up Visit Follow-up Visit (Physician/PICKER/PULLER (Physician/PICKER/PULLER (Physician/PICKER/PULLER ) ) ) Arrival Mode Ambulatory Ambulatory Ambulatory Transfer Assistance None None Patient Identification Verified (Name & Yes Yes Yes ) Patient Requires Transmission-Based No No No Precautions Safety Precautions NA Vital Signs Temperature (97.8 F-99.1 F) 96.8 F L 96.1 F L 97.5 F L Temperature Source Temporal Temporal Temporal Pulse Rate (60-100) 78 74 94 Pulse Location Monitor Monitor Respiratory Rate (12-18) 20 H 16 18 Respiratory rate source Observation Observation Blood Pressure (90/60-120/80) 149/70 H 147/82 H 128/68 H Blood Pressure Mean (mm Hg) 96 103 88 Source Monitor Monitor Position Semi-Fowlers Blood Pressure Location Left Arm History Since Last Visit- (Skip if this is Patient's initial visit) Have you changed medications since your No No No last visit? Any new allergies or adverse reactions No No No Had a fall/change in ADL's that may No No No increase risk of falls Signs or symptoms of abuse and/or No No No neglect since last visit Have you been in the hospital since your No No No last visit? Has dressing in place as prescribed Yes Yes Yes Has compression in place as prescribed No N/A Yes Has offloadiing in place as prescribed N/A N/A Yes Experienced any changes in pain level or No No management Left Footwear Regular Shoe Right Footwear Regular Shoe Pain Scale: 0-10 Numeric Is Patient Pain Free? Yes Yes Yes WC - Nurse 1 - General Ulcer Measurement Start: 12/28/22 13:50 Freq: Status: Active Protocol: Activity Type Activity Date Activity User E-sign Co-sign Detail Recorded Client Recorded Date Recorded By Document 01/11/23 13:21 Laptop 01/11/23 13:23 Document 01/18/23 13:26 DL Desktop 01/18/23 13:31 DL 01/11/23 01/18/23 13:21 13:26 Wound Center Nurse 1 #1 L Knee -Combined with other wound No -Current Size (cm) - Length 0.5 0.5 -Current Size (cm) - Width 0.3 0.5 -Current Size (cm) - Depth 0.1 0.1 -Total Square Cm 0.15 0.25 -Photo Taken Yes -Epithelialization Large 67-100% -Tunneling No -Undermining/Tunneling No -Circular Undermining No -Exudate Amt Small Small -Exudate Type Serosanguineous Serosanguineous -Wound Margin Flat & Intact -Granulation Amt Large (67-100%) Small (1-33%) -Granulation Quality [place],Red Pale -Slough/Fibrin Yes -Necrosis Amt Small (1-33%) None Present (0 %) -Necrotic Tissue Type Adherent Slough -Structure Exposed N/A N/A -Texture (Jannet-wound Skin Appearance) Assessed, Scarring Localized Edema -Moisture (Jannet-wound Skin Appearance) Assessed,Dry/ No Abnormality Scaly -Color (Jannet-wound Skin Appearance) Assessed No Abnormality -Temperature (Jannet-wound Skin No Abnormality No Abnormality Appearance) (Pt Warm) (Pt Warm) -Tenderness on Palpation (Jannet-wound No No Skin Appearance) -Ulcer Cleansing Rinsed/ Rinsed/ Irrigated with Irrigated with Saline Saline -Foul Odor after Cleansing No -Anesthetic Used 5% Lidocaine 5% Lidocaine Gel Gel Lower Limb Edema Present NA - Nurse 2 - General Ulcer CM Notes Start: 12/28/22 13:50 Freq: Status: Active Protocol: Activity Type Activity Date Activity User E-sign Co-sign Detail Recorded Client Recorded Date Recorded By Document 12/28/22 14:01 Laptop 12/28/22 14:05 Document 01/11/23 13:58 Laptop 01/11/23 13:59 Document 01/18/23 13:48 Desktop 01/18/23 13:49 12/28/22 01/11/23 01/18/23 14:01 13:58 13:48 Wound Center Nurse 2 #1 L Knee -Time 14:01 13:58 13:48 -Correct Patient Yes Yes Yes -Correct Side, Site, Position Yes Yes Yes -Correct Procedure Yes Yes Yes -Procedure Performed Yes Yes Yes -Type of Procedure Debridement Debridement Debridement -Clinical Debridement Subcutaneous Subcutaneous Subcutaneous -Tissue Removed Subcutaneous Subcutaneous Subcutaneous -Post Debridement (cm) - Length 0.4 1.2 0.7 -Post Debridement (cm) - Width 0.3 0.8 0.6 -Post Debridement (cm) - Depth 0.1 0.1 0.1 -Total Square (Post) (cm) 0.12 0.96 0.42 -Area of Debridement (cm) - Length 0.4 1.2 0.7 -Area of Debridement (cm) - Width 0.3 0.8 0.6 -Total Square (Area) (cm) 0.12 0.96 0.42 -Tunneling No No No -Undermining/Tunneling No No No -Circular Undermining No No No -Wound/Ulcer Outcome Not Healed Not Healed Not Healed -Ulcer Cleansing Rinsed/ Rinsed/ Rinsed/ Irrigated with Irrigated with Irrigated with Saline Saline Saline -Foul Odor after Cleansing No No No -Bioengineered Tissue No No No -Bleeding Controlled with Pressure Pressure Pressure -Treatment Response Procedure Procedure Procedure Tolerated Well Tolerated Well Tolerated Well -Offloading No No No -Debridement - Subq, 1st 20sq cm Yes Yes Yes Pain Scale: 0-10 Numeric Is Patient Pain Free? Yes Yes Yes - Nurse 3 - General Ulcer D/C NN Start: 12/28/22 13:50 Freq: Status: Active Protocol: Activity Type Activity Date Activity User E-sign Co-sign Detail Recorded Client Recorded Date Recorded By Document 12/28/22 14:06 Laptop 12/28/22 14:06 Document 01/11/23 14:10 [facility] Desktop 01/11/23 14:11 [facility] Document 01/18/23 13:57 [facility] Desktop 01/18/23 13:58 [facility] 12/28/22 01/11/23 01/18/23 14:06 14:10 13:57 Wound Care Center Nurse 3 #1 L Knee -Ulcer Cleansing Rinsed/ Rinsed/ Rinsed/ Irrigated with Irrigated with Irrigated with Saline Saline Saline -Foul Odor after Cleansing No No -Primary Dressing Applied Mepilex Border Mepilex Border Mepilex Border -Other Dressing hydrogel HYDROGEL -Mepilex Border 1 1 1 Treatment Response Procedure Procedure Tolerated Well Tolerated Well Pain Scale: 0-10 Numeric Is Patient Pain Free? 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 (3) Skin necrosis: CODE(S): I96 - Gangrene, not elsewhere classified (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 She had her last placement of Thera-Skin on 11/23/22. Since the ulcer is not totally healed after the 10 treatments, placement of an autograft will have a better chance of healing because the Thera-Skin has primed the wound base. Operative culture was negative. She was treated perioperatively with Levaquin and has finished them. Continue Collagen Hydrogel to the ulcer covered with [place] SAP dressing daily. Prealbumin was 27.0 on 08/13/22. Encourage nutritional supplementation with protein to help the healing process. In this patient I was inclined to proceed with skin grafting a little quicker than normal hoping that the pain would improve since the wound would be covered with the skin graft. Also closing the wound sooner with a skin graft would be helpful for her rheumatoid arthritis. She is being treated with Tocilizumab which can delay wound healing and can worsen infections if present in the wound. I had talked to her Molder Pipe Covering and said it was ok to give the immunologic medication. If the ulcer starts to worsen, will have him stop the treatments (monthly). She noticed improvement in her arthritis pain afterward. She is anxious to get back to work. She can return to work with no restrictions. She said returning to work tomorrow, 01/02/23, would be fine. While at work she will wear her compression robert wrap and try to elevate her left leg when sitting and try to minimize standing while at work. Wound culture from 01/12/23 was negative for bacterial growth. Followup one week.
--- NOTE | 2023-01-25 16:45 | PCM.WC.PN ---
History of Present Illness Date of Service: 01/25/23 Chief Complaint: Nonhealing hematoma ulcer left distal medial thigh. History of Wound: 68 year old woman who is on Coumadin for history of blood clots sustained a traumatic hematoma to her left distal medial thigh on , 08/06/22, when her left thigh hit the edge of a table at lunch. Despite robert wrap compression and ice packs over the next several days, the hematoma continued to increase in size which put pressure on the overlying skin that turned necrotic. She went to surgery on 08/12/22 where she underwent surgical preparation left distal medial thigh with incision and drainage and evacuation traumatic hematoma with excisional debridement overlying skin necrosis (81 cm2). Wound care is Collagen Hydrogel. She finished 10 applications of Thera-Skin on 11/23/22. Operative culture - negative. Wound culture from 01/12/23 was negative for bacterial growth. Pathology - Pieces of skin and adipose tissue with focal area of hemorrhage, clinically hematoma. CT Left lower extremity - 08/06/22 - There is a subdermal mass likely a hematoma in the distal thigh anteromedially. Prealbumin from 08/13/22 was 27.0. Encourage nutritional supplementation with protein to help the healing process. Today she denies fever. She is tolerating the debridements without difficulty. Had a discussion with the patient regarding the use of advanced skin substitute grafts such as Thera-skin to help with the healing process. The other option was going back to surgery for a skin graft which she would like to avoid if possible. Her insurance approved the treatments which will be 10 applications of Thera-skin over 12 weeks. On 11/23/22, she had her 10th application of Thera-skin. Progress of Wound: Continues to improve slowly. Objective Data Objective Data Vital Signs: Vital Signs Temp Pulse Resp BP 97.5 F L 94 18 128/68 H 01/18/23 13:26 01/18/23 13:26 01/18/23 13:26 01/18/23 13:26 Prealbumin was 27.0 on 08/13/22. Encourage nutritional supplementation with protein to help the healing process. Lab / Micro Data Micro: Microbiology 01/12/23 14:00 Wound - Leg, Left Gram Stain - Final 01/12/23 14:00 Wound - Leg, Left Wound Culture - Final No growth aerobically. 01/12/23 14:00 Wound - Leg, Left Anaerobic Culture - Final No growth in 5 days. Charges/Coding Procedures Integumentary [id number]: [id number] Patrizia subq tissue 20 sq cm/< (ICD-10 - L97.129, S70.12xA, I96, Z79.01, Z86.718, Z79.899, M06.9) Debridement Note Debridement Note Wound debrided: #1 Left distal medial thigh. Laterality: Left Wound Grade/Stage: 3. Type of Debridement: Excisional debridement Anesthesia Used: 5% Lidocaine Gel Depth: Down to and including healthy tissue and in the subcutaneous layer Percentage of wound debrided: 100 Instrument Used: 3mm curette Tissue Removed: subcutaneous tissue. Severity: Fat Layer Exposed Amount of bleeding with debridement: Mild Bleeding Controlled with: Pressure and Compression and gauze Patient tolerated procedure: Patient tolerated procedure well Post-Debridement Measurements and Additional Note: Post-Debridement Measurements/Treatment - Nurse 1 - General Ulcer Assessment Start: 12/28/22 13:50 Freq: Status: Active Protocol: LILIYA Activity Type Activity Date Activity User E-sign Co-sign Detail Recorded Client Recorded Date Recorded By Document 12/28/22 13:52 PL [id number] 12/28/22 13:53 PL Document 01/11/23 13:21 Laptop 01/11/23 13:23 Document 01/18/23 13:26 DL Desktop 01/18/23 13:31 DL 12/28/22 01/11/23 01/18/23 13:52 13:21 13:26 - Today's Visit Information Type of service Follow-up Visit Follow-up Visit Follow-up Visit (Physician/[employer]USER [employer] (Physician/[employer] FUSER [employer]CULAR (Physician/[employer]USER [employer]CULAR ) ) ) Arrival Mode Ambulatory Ambulatory Ambulatory Transfer Assistance None None Patient Identification Verified (Name & Yes Yes Yes ) Patient Requires Transmission-Based No No No Precautions Safety Precautions NA Vital Signs Temperature (97.8 F-99.1 F) 96.8 F L 96.1 F L 97.5 F L Temperature Source Temporal Temporal Temporal Pulse Rate (60-100) 78 74 94 Pulse Location Monitor Monitor Respiratory Rate (12-18) 20 H 16 18 Respiratory rate source Observation Observation Blood Pressure (90/60-120/80) 149/70 H 147/82 H 128/68 H Blood Pressure Mean (mm Hg) 96 103 88 Source Monitor Monitor Position Semi-Fowlers Blood Pressure Location Left Arm History Since Last Visit- (Skip if this is Patient's initial visit) Have you changed medications since your No No No last visit? Any new allergies or adverse reactions No No No Had a fall/change in ADL's that may No No No increase risk of falls Signs or symptoms of abuse and/or No No No neglect since last visit Have you been in the hospital since your No No No last visit? Has dressing in place as prescribed Yes Yes Yes Has compression in place as prescribed No N/A Yes Has offloadiing in place as prescribed N/A N/A Yes Experienced any changes in pain level or No No management Left Footwear Regular Shoe Right Footwear Regular Shoe Pain Scale: 0-10 Numeric Is Patient Pain Free? Yes Yes Yes WC - Nurse 1 - General Ulcer Measurement Start: 12/28/22 13:50 Freq: Status: Active Protocol: Activity Type Activity Date Activity User E-sign Co-sign Detail Recorded Client Recorded Date Recorded By Document 01/11/23 13:21 Laptop 01/11/23 13:23 Document 01/18/23 13:26 DL Desktop 01/18/23 13:31 DL 01/11/23 01/18/23 13:21 13:26 Wound Center Nurse 1 #1 L Knee -Combined with other wound No -Current Size (cm) - Length 0.5 0.5 -Current Size (cm) - Width 0.3 0.5 -Current Size (cm) - Depth 0.1 0.1 -Total Square Cm 0.15 0.25 -Photo Taken Yes -Epithelialization Large 67-100% -Tunneling No -Undermining/Tunneling No -Circular Undermining No -Exudate Amt Small Small -Exudate Type Serosanguineous Serosanguineous -Wound Margin Flat & Intact -Granulation Amt Large (67-100%) Small (1-33%) -Granulation Quality [place],Red Pale -Slough/Fibrin Yes -Necrosis Amt Small (1-33%) None Present (0 %) -Necrotic Tissue Type Adherent Slough -Structure Exposed N/A N/A -Texture (Jannet-wound Skin Appearance) Assessed, Scarring Localized Edema -Moisture (Jannet-wound Skin Appearance) Assessed,Dry/ No Abnormality Scaly -Color (Jannet-wound Skin Appearance) Assessed No Abnormality -Temperature (Jannet-wound Skin No Abnormality No Abnormality Appearance) (Pt Warm) (Pt Warm) -Tenderness on Palpation (Jannet-wound No No Skin Appearance) -Ulcer Cleansing Rinsed/ Rinsed/ Irrigated with Irrigated with Saline Saline -Foul Odor after Cleansing No -Anesthetic Used 5% Lidocaine 5% Lidocaine Gel Gel Lower Limb Edema Present NA WC - Nurse 2 - General Ulcer CM Notes Start: 12/28/22 13:50 Freq: Status: Active Protocol: Activity Type Activity Date Activity User E-sign Co-sign Detail Recorded Client Recorded Date Recorded By Document 12/28/22 14:01 Laptop 12/28/22 14:05 Document 01/11/23 13:58 Laptop 01/11/23 13:59 Document 01/18/23 13:48 Desktop 01/18/23 13:49 Document 01/25/23 14:09 Laptop 01/25/23 14:11 12/28/22 01/11/23 01/18/23 14:01 13:58 13:48 Wound Center Nurse 2 #1 L Knee -Time 14:01 13:58 13:48 -Correct Patient Yes Yes Yes -Correct Side, Site, Position Yes Yes Yes -Correct Procedure Yes Yes Yes -Procedure Performed Yes Yes Yes -Type of Procedure Debridement Debridement Debridement -Clinical Debridement Subcutaneous Subcutaneous Subcutaneous -Tissue Removed Subcutaneous Subcutaneous Subcutaneous -Post Debridement (cm) - Length 0.4 1.2 0.7 -Post Debridement (cm) - Width 0.3 0.8 0.6 -Post Debridement (cm) - Depth 0.1 0.1 0.1 -Total Square (Post) (cm) 0.12 0.96 0.42 -Area of Debridement (cm) - Length 0.4 1.2 0.7 -Area of Debridement (cm) - Width 0.3 0.8 0.6 -Total Square (Area) (cm) 0.12 0.96 0.42 -Tunneling No No No -Undermining/Tunneling No No No -Circular Undermining No No No -Wound/Ulcer Outcome Not Healed Not Healed Not Healed -Ulcer Cleansing Rinsed/ Rinsed/ Rinsed/ Irrigated with Irrigated with Irrigated with Saline Saline Saline -Foul Odor after Cleansing No No No -Bioengineered Tissue No No No -Bleeding Controlled with Pressure Pressure Pressure -Treatment Response Procedure Procedure Procedure Tolerated Well Tolerated Well Tolerated Well -Offloading No No No -Debridement - Subq, 1st 20sq cm Yes Yes Yes Pain Scale: 0-10 Numeric Is Patient Pain Free? Yes Yes Yes 01/25/23 14:09 Wound Center Nurse 2 #1 L Knee -Time 14:10 -Correct Patient Yes -Correct Side, Site, Position Yes -Correct Procedure Yes -Procedure Performed Yes -Type of Procedure Debridement -Clinical Debridement Subcutaneous -Tissue Removed Subcutaneous -Post Debridement (cm) - Length 0.4 -Post Debridement (cm) - Width 0.5 -Post Debridement (cm) - Depth 0.1 -Total Square (Post) (cm) 0.20 -Area of Debridement (cm) - Length 0.4 -Area of Debridement (cm) - Width 0.5 -Total Square (Area) (cm) 0.20 -Tunneling No -Undermining/Tunneling No -Circular Undermining No -Wound/Ulcer Outcome Not Healed -Ulcer Cleansing Rinsed/ Irrigated with Saline -Foul Odor after Cleansing No -Bioengineered Tissue No -Bleeding Controlled with Pressure -Treatment Response Procedure Tolerated Well -Offloading No -Debridement - Subq, 1st 20sq cm Yes Pain Scale: 0-10 Numeric Is Patient Pain Free? Yes - Nurse 3 - General Ulcer D/C NN Start: 12/28/22 13:50 Freq: Status: Active Protocol: Activity Type Activity Date Activity User E-sign Co-sign Detail Recorded Client Recorded Date Recorded By Document 12/28/22 14:06 Laptop 12/28/22 14:06 Document 01/11/23 14:10 [facility] Desktop 01/11/23 14:11 [facility] Document 01/18/23 13:57 [facility] Desktop 01/18/23 13:58 [facility] Document 01/25/23 14:12 Laptop 01/25/23 14:12 12/28/22 01/11/23 01/18/23 14:06 14:10 13:57 Wound Care Center Nurse 3 #1 L Knee -Ulcer Cleansing Rinsed/ Rinsed/ Rinsed/ Irrigated with Irrigated with Irrigated with Saline Saline Saline -Foul Odor after Cleansing No No -Primary Dressing Applied Mepilex Border Mepilex Border Mepilex Border -Other Dressing hydrogel HYDROGEL -Mepilex Border 1 1 1 Treatment Response Procedure Procedure Tolerated Well Tolerated Well Pain Scale: 0-10 Numeric Is Patient Pain Free? Yes Yes Yes WC - Visit Discharge Discharge Condition Stable Stable Stable Ambulatory Status Ambulatory Ambulatory Ambulatory Transportation Private Auto Private Auto Private Auto Accompanied by Medication Reconcilliation completed & Yes provided to patient/care provider Clinical Summary of Care Provided Yes 01/25/23 14:12 Wound Care Center Nurse 3 #1 L Knee -Ulcer Cleansing Rinsed/ Irrigated with Saline -Foul Odor after Cleansing No -Primary Dressing Applied Mepilex Border -Other Dressing -Mepilex Border 1 Treatment Response Pain Scale: 0-10 Numeric Is Patient Pain Free? 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 She had her last placement of Thera-Skin on 11/23/22. Since the ulcer is not totally healed after the 10 treatments, placement of an autograft will have a better chance of healing because the Thera-Skin has primed the wound base. Operative culture was negative. She was treated perioperatively with Levaquin and has finished them. Recent wound culture from 01/11/23 was negative. Continue Collagen Hydrogel to the ulcer daily. Prealbumin was 27.0 on 08/13/22. Encourage nutritional supplementation with protein to help the healing process. Patient is being treated with Tocilizumab which can delay wound healing and can worsen infections if present in the wound. I had talked to her Instruction Assistant Principal and said it was ok to give the immunologic medication. If the ulcer starts to worsen, will have him stop the treatments (monthly). She noticed improvement in her arthritis pain afterward. She has returned to work and doing ok. is anxious to get back to work. While at work she will wear her compression robert wrap and try to elevate her left leg when sitting and try to minimize standing while at work. Followup 2 weeks.
== END 2023-01-26 23:59 | disposition home or self-care (01) ==
LOC: WC 13:45
PROVIDERS: PCP Family Medicine Geriatric Medicine; Referring Provider Surgery; Visit Provider Nurse Practitioner Family
DX: L97.122 Non-pressure chronic ulcer of left thigh with fat layer exposed (principal); I96 Gangrene, not elsewhere classified; M06.9 Rheumatoid arthritis, unspecified; S70.12XS Contusion of left thigh, sequela; W22.8XXS Striking against or struck by other objects, sequela; Z79.01 Long term (current) use of anticoagulants; Z86.718 Personal history of other venous thrombosis and embolism; Z79.899 Other long term (current) drug therapy
CPT/HCPCS: 11042; 87070; 87075; 87205

== ENCOUNTER 2023-02-08 13:04 | Outpatient (RCR) | payer MEDICARE, OTHER, SELFPAY ==
[2023-01-27 00:41] VITALS: BP 128/68; PULSE 94; RESP 18; TEMP 36.4
[2023-02-08 13:12] VITALS: BP 147/83; PULSE 97; TEMP 36.3
--- NOTE | 2023-02-08 13:53 | PCM.WC.PN ---
History of Present Illness Date of Service: 02/08/23 Chief Complaint: Nonhealing hematoma ulcer left distal medial thigh. History of Wound: 68 year old woman who is on Coumadin for history of blood clots sustained a traumatic hematoma to her left distal medial thigh on , 08/06/22, when her left thigh hit the edge of a table at lunch. Despite robert wrap compression and ice packs over the next several days, the hematoma continued to increase in size which put pressure on the overlying skin that turned necrotic. She went to surgery on 08/12/22 where she underwent surgical preparation left distal medial thigh with incision and drainage and evacuation traumatic hematoma with excisional debridement overlying skin necrosis (81 cm2). Wound care is Collagen Hydrogel. She finished 10 applications of Thera-Skin on 11/23/22. Operative culture - negative. Wound culture from 01/12/23 was negative for bacterial growth. Pathology - Pieces of skin and adipose tissue with focal area of hemorrhage, clinically hematoma. CT Left lower extremity - 08/06/22 - There is a subdermal mass likely a hematoma in the distal thigh anteromedially. Prealbumin from 08/13/22 was 27.0. Encourage nutritional supplementation with protein to help the healing process. Today she denies fever. She is tolerating the debridements without difficulty. Had a discussion with the patient regarding the use of advanced skin substitute grafts such as Thera-skin to help with the healing process. The other option was going back to surgery for a skin graft which she would like to avoid if possible. Her insurance approved the treatments which will be 10 applications of Thera-skin over 12 weeks. On 11/23/22, she had her 10th application of Thera-skin. Progress of Wound: She is healed today. Objective Data Objective Data Vital Signs: Vital Signs Temp Pulse Resp BP O2 Del Method 97.3 F L 97 18 147/83 H Room Air 02/08/23 13:12 02/08/23 13:12 01/27/23 00:41 02/08/23 13:12 02/08/23 13:12 Oxygen Delivery Method Room Air Charges/Coding Visit Charges Office Visits / Consults: 70509 OV L3 Est Physical Exam Narrative General - Alert and Oriented HEENT - PERRL. EOMI. Neck - Supple and nontender. Abdomen - Soft and nondistended. Extremities - FROM. left distal medial thigh ulcer is healed today. Neuro - CN II-XII grossly intact. Psych - Normal mood and affect. Debridement Note Debridement Note No debridement was completed: No debridement was completed today Post-Debridement Measurements and Additional Note: Post-Debridement Measurements/Treatment - Nurse 1 - General Ulcer Assessment Start: 02/08/23 13:07 Freq: Status: Active Protocol: LILIYA Activity Type Activity Date Activity User E-sign Co-sign Detail Recorded Client Recorded Date Recorded By Document 02/08/23 13:12 [facility] [place] 02/08/23 13:14 [facility] 02/08/23 13:12 - Today's Visit Information Type of service Follow-up Visit (Physician/SUPERVISOR [employer]ESSING ) Arrival Mode Ambulatory Transfer Assistance None Patient Identification Verified (Name & Yes ) Patient Requires Transmission-Based No Precautions Vital Signs Temperature (97.8 F-99.1 F) 97.3 F L Temperature Source Temporal Pulse Rate (60-100) 97 Pulse Location Monitor Respiratory rate source Observation Oxygen Delivery Method Room Air Blood Pressure (90/60-120/80) 147/83 H Blood Pressure Mean (mm Hg) 104 Source Monitor Position Sitting Blood Pressure Location Left Arm History Since Last Visit- (Skip if this is Patient's initial visit) Have you changed medications since your No last visit? Any new allergies or adverse reactions No Had a fall/change in ADL's that may No increase risk of falls Signs or symptoms of abuse and/or No neglect since last visit Have you been in the hospital since your No last visit? Has dressing in place as prescribed Yes Has compression in place as prescribed N/A Has offloadiing in place as prescribed N/A Experienced any changes in pain level or No management Left Footwear Regular Shoe Right Footwear Regular Shoe Pain Scale: 0-10 Numeric Is Patient Pain Free? Yes - Nurse 1 - General Ulcer Measurement Start: 02/08/23 13:07 Freq: Status: Active Protocol: Activity Type Activity Date Activity User E-sign Co-sign Detail Recorded Client Recorded Date Recorded By Document 02/08/23 13:12 [facility] 02/08/23 13:14 [facility] 02/08/23 13:12 Wound Center Nurse 1 #1 L Knee -Combined with other wound No -Current Size (cm) - Length 0 -Current Size (cm) - Width 0 -Current Size (cm) - Depth 0 -Total Square Cm 0 -Epithelialization Large 67-100% -Texture (Jannet-wound Skin Appearance) Assessed, Scarring -Moisture (Jannet-wound Skin Appearance) Assessed -Color (Jannet-wound Skin Appearance) Assessed -Temperature (Jannet-wound Skin No Abnormality Appearance) (Pt Warm) -Tenderness on Palpation (Jannet-wound No Skin Appearance) - Nurse 2 - General Ulcer CM Notes Start: 02/08/23 13:07 Freq: Status: Active Protocol: Activity Type Activity Date Activity User E-sign Co-sign Detail Recorded Client Recorded Date Recorded By Document 02/08/23 13:19 [facility] 02/08/23 13:21 02/08/23 13:19 Wound Center Nurse 2 -Correct Patient No -Correct Side, Site, Position No -Correct Procedure No -Clinical Debridement Subcutaneous -Post Debridement (cm) - Length 0 -Post Debridement (cm) - Width 0 -Post Debridement (cm) - Depth 0 -Total Square (Post) (cm) 0 -Area of Debridement (cm) - Length 0 -Area of Debridement (cm) - Width 0 -Total Square (Area) (cm) 0 -Wound/Ulcer Outcome Healed- Epithelialized Pain Scale: 0-10 Numeric Is Patient Pain Free? Yes - Nurse 3 - General Ulcer D/C NN Start: 02/08/23 13:07 Freq: Status: Active Protocol: Activity Type Activity Date Activity User E-sign Co-sign Detail Recorded Client Recorded Date Recorded By Document 02/08/23 13:21 [facility] 02/08/23 13:22 02/08/23 13:21 Is Patient Pain Free? 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 (3) Skin necrosis: CODE(S): I96 - Gangrene, not elsewhere classified (4) [facility] (current) use of anticoagulants: CODE(S): Z79.01 - [facility] (current) use of anticoagulants (5) History of deep vein thrombosis: CODE(S): Z86.718 - Personal history of other venous thrombosis and embolism (6) Long-term current use of tocilizumab: CODE(S): Z79.899 - Other intermediate manager (current) drug therapy (7) Rheumatoid arthritis: CODE(S): M06.9 - Rheumatoid arthritis, unspecified PLAN: Plan Patient has a traumatic hematoma ulcer left distal medial thigh after operative debridement and placement of Thera-Skin advanced skin substitute grafts (10 applications). She had her last placement of Thera-Skin on 11/23/22. She is healed today. Encouraged her to massage the healed area with lotion 1-2 times per day to help soften the scarring. Operative culture was negative. She was treated perioperatively with Levaquin and has finished them. Recent wound culture from 01/11/23 was negative. Continue Collagen Hydrogel to the ulcer daily. Prealbumin was 27.0 on 08/13/22. Encourage nutritional supplementation with protein to help the healing process. Patient is being treated with Tocilizumab which can delay wound healing and can worsen infections if present in the wound. I had talked to her Mill Feeder and said it was ok to give the immunologic medication. If the ulcer starts to worsen, will have him stop the treatments (monthly). She noticed improvement in her arthritis pain afterward. She has returned to work and doing ok. is anxious to get back to work. While at work she will wear her compression robert wrap and try to elevate her left leg when sitting and try to minimize standing while at work. Followup as needed.
== END 2023-02-09 15:40 | disposition home or self-care (01) ==
LOC: WC 13:04
PROVIDERS: PCP Family Medicine Geriatric Medicine; Referring Provider Surgery; Visit Provider Nurse Practitioner Family
DX: Z09 Encounter for follow-up examination after completed treatment for conditions other than malignant neoplasm (principal); M06.9 Rheumatoid arthritis, unspecified; S70.12XS Contusion of left thigh, sequela; W22.8XXS Striking against or struck by other objects, sequela; Z79.01 Long term (current) use of anticoagulants; Z79.899 Other long term (current) drug therapy; Z86.718 Personal history of other venous thrombosis and embolism
CPT/HCPCS: 99213; G0463

== ENCOUNTER → 2023-06-08 | Outpatient (CLI) | payer MEDICARE, OTHER, SELFPAY ==
[2023-06-08 19:41] LABS: Amphetamine Urine VISTA NEGATIVE (<1000 ng/mL); Barbiturate Urine VISTA NEGATIVE (< 200 ng/mL); Benzodiazepine Urine VISTA NEGATIVE (< 200 ng/mL); Cocaine Urine VISTA NEGATIVE (< 300 ng/mL); Ecstacy Urine VISTA NEGATIVE (< 500 ng/mL); Methadone Urine VISTA NEGATIVE (< 300 ng/mL); PCP Urine VISTA NEGATIVE (< 25 ng/mL); THC Urine VISTA NEGATIVE (< 50 ng/mL); Vista UDS pH Range 6
--- OUTSIDE RECORDS SUMMARY | 2023-06-09 02:09 | XMS RPT_ITS | CCD ---
Author Name Unknown Address [address] [place] [address] Organization [facility] Care Team Providers Care Waste Chopper Name Role Phone Wilton Navas Chi Primary Care Provider Medications Completed/Discontinued Medications Medication Drug Class(es) Dates Sig (Normalized) Sig (Original) CHOLECALCIFEROL, VITAMIN D3, (VITAMIN D3 ORAL) (8 sources) CHOLECALCIFEROL, VITAMIN D3, (VITAMIN D3 ORAL) Take by mouth once daily. 0 Active Problems Active Problems Problem Classification Problem Date Documented Da te Episodic/Chronic Disorders of lipid metabolism (8 sources) Dyslipidemia; Translations: [Hyperlipidemia, unspecified] Onset: 09-27-2016 09-27-2016 Chronic Other circulatory disease (8 sources) Raynaud's phenomenon; Translations: [Raynaud's syndrome without gangrene] Onset: 01-10-2017 01-10-2017 Chronic Other gastrointestinal disorders (1 source) Dysphagia; Translations: [Dysphagia, unspecified] Episodic Residual codes; unclassified (8 sources) Daytime somnolence; Translations: [Other hypersomnia] Onset: 09-27-2016 09-27-2016 Chronic Systemic lupus erythematosus and connective tissue disorders (8 sources) Limited systemic sclerosis; Translations: [Systemic sclerosis, unspecified] Onset: 09-27-2016 09-27-2016 Chronic Thyroid disorders (8 sources) 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; Translations: [Other specified hypothyroidism] Onset: 09-27-2016 09-27-2016 Chronic Past or Other Problems Problem Classification Problem Date Documented Da te Episodic/Chronic Other connective tissue disease (8 sources) Fibromyalgia; Translations: [Fibromyalgia] Onset: 09-27-2016 09-27-2016 Episodic Other lower respiratory disease (8 sources) Snoring; Translations: [Snoring] Onset: 09-27-2016 09-27-2016 Episodic Other lower respiratory disease (8 sources) Apnea; Translations: [Apnea, not elsewhere classified] Onset: 09-27-2016 09-27-2016 Episodic Results Test Name Value Interpretation Reference Range Facil ity Encounters Encounter Date Encounter Type Care Provider Facility Start: 09-04-2021 Telephone encounter Monica Greco MD Work Phone: Gastroenterology Procedures Date Procedure Procedure Detail Performing Clinician Start: 12-20-2017 Adult depression scr eening assessment Ruby Reddy LPN Plan of Treatment Date Care Activity Detail Author Start: 11-27-2021 Influenza vaccination INFLUENZA (Sea son Ended) [facility] Start: 03-29-2021 ADVANCE DIRECTIVE DISCUSSION ADVANCE DIRECTIVE DISCUSSION [facility] Start: 12-20-2020 DIABETES SCREEN DIABETES SCREEN [facility] Start: 12-20-2018 Adult depression scr eening assessment DEPRESSION SCREENING [facility] Start: 2018 BONE DENSITY BONE DENSITY [facility] Start: 2018 PNEUMOCOCCAL: 65+ (1 - PCV) PNEUMOCOCCAL: 65+ (1 - PCV) [facility] Start: 2018 PNEUMOVAX AGE 65 AND OVER WITH 5YR LOOKBACK (#1) PNEUMOVAX AGE 65 AND OVER WITH 5YR LOOKBACK (#1) [facility] Start: 2003 SHINGRIX VACCINE (1 of 2) SHINGRIX V ACCINE (1 of 2) [facility] Start: 1998 COLOGUARD (FIT-DNA) COLOGUARD (FIT-D NA) [facility] Start: 1998 Colonoscopy COLONOSCOPY [facility] Start: 1998 COLORECTAL CANCER SCREENING COLORECTAL CANCER SCREENING [facility] Start: [address] COLONOGRAPHY [facility] Start: 1998 FECAL OCCULT BLOOD FECAL OCCULT BLOO D [facility] Start: 1998 LIPID SCREEN LIPID SCREEN [facility] Start: 1998 SIGMOIDOSCOPY SIGMOIDOSCOPY [facility] Start: 1993 Mammography MAMMOGRAM [facility] Start: 01-05-1972 Urine microalbumin profile DTAP,TDAP ,TD (1 - Tdap) [facility] Start: 1971 ANNUAL PCP TEAM 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 AND 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 JIM DISEASE VISIT ANNUAL PCP TEAM CHRONIC DISEASE VISIT [facility] Start: 1971 HEPATITIS C SCREENING HEPATITIS C YOUSIF SHETTY [facility] Start: 1965 Adult depression scr ning assessment DEPRESSION SCREENING [facility] Start: 1958 COVID-19 VACCINE (1) COVID-19 VACCIN E (1) [facility] Immun[facility] Immunization Date Immunization Notes Care Provider Dong baires 12-20-2017 influenza, injectabl e, quadrivalent, contains preservative Damaris Nunez MD Work Phone: [facility] Payers Date Payer Category Payer Unknown [employer]MO MMO MEDICARE SUPPLEMENT [id number] 2019-Present [phone] [address] [place] [address] Indemnity [id number] 2010 Medicare MEDICARE MEDICAR E A AND B [id number] 2010-Present [phone] [address] [address] [place] [address] Medicare [id number] Social History Date Type Detail Facility Tobacco smoking stat [facility] Never smoked tobacco [facility] Start: 06-25-2021 End: 08-06-2021 Alcohol intake Current non-drinker of alcohol (finding) [facility] Start: 1955 Sex Assigned At Not on file [facility] Start: 07-27-2021 End: 08-06-2021 Exposure to SARS-CoV-2 (event) Not sure [facility] Clinical Notes 10-14-2007 to 09-04-2021 Telephone Encounter - Ruby Clemens LPN - 09/04/2021 11:53 AM EDTTelephone Encounter - Ruby Reddy - 08/20/2021 1:17 PM EDTTelephone Encounter - Natacha Selby - 08/20/2021 10:03 AM EDT Note Date & Type Note Facility 09-04-2021 Miscellaneous Notes poke with patient. She is a referral from Dr Harrison Toney. Scheduled for virtual visit and Dr Greco ordered TBE. Patient was hesitant to schedule TBE stating she's already had esophagram. I spoke with her on 08/28 and explained TBE is different than what she'd had previously. She then said ok to schedule, so I had scheduling reach out to her. She now states she doesn't want any more testing and wants to cancel her virtual visit and think about this I told her we would cancel the appointment, but if she changes her mind, it will be a wait to get back in. She did not seem to care. documented in this encounter [facility] 08-20-2021 Note HNO ID: [id number] Author: Ruby Reddy Service: ? Author Type: ? Type: Progress Notes Filed: 08/20/2021 1:17 PM Note Text: New Patient/Consult REASON FOR VISIT Fiona Ervin is a 66 year old female who is scheduled for achalasia at the request of . ESOPHAGEAL MANOMETRY 08/06/21 ESOPHAGRAM 05/30/21 EGD 10/24/19 MANOMETRY ESOPHAGEAL 12/04/2008 Extremely elevated LES resting pressure with consistent relaxation Most contractions are peristaltic and a few fail to conduct but the LES seems to relax. Imp. nonclassified motor disorder. Suggest timed barium swallow. [place] 08-20-2021 Miscellaneous Notes Abstract complete and sent to Dr Greco Aleta faxed referral request for Dr. Greco, which was forwarded for review. See 30 pages in scanned tab (Consult - GI). Referring: Dr. Harrison Toney FAX: [phone] Reason for Referral: Achalasia; Stricture?? documented in this encounter [facility] 08-20-2021 History of Presen t illness Narrative Images from the original note were not included. New Patient/Consult REASON FOR VISIT Fiona rEvin is a 66 year old female who is scheduled for achalasia at the request of . ESOPHAGEAL MANOMETRY 08/06/21 ESOPHAGRAM 05/30/21 EGD 10/24/19 MANOMETRY ESOPHAGEAL 12/04/2008 Extremely elevated LES resting pressure with consistent relaxation Most contractions are peristaltic and a few fail to conduct but the LES seems to relax. Imp. nonclassified motor disorder. Suggest timed barium swallow. documented in this encounter [facility] 07-21-2021 Miscellaneous Notes Patient called to reschedule her esophageal manometry. Patient was in the ER on 07/16/21 with a migraine, leg pain and N/V. She was dehydrated. She is back on her coumadin. I rescheduled patient for manometry on 08/06/21 at 9:00 with an 8:00 arrival time. I instructed patient to hold her coumadin starting 08/01/21. Patient agreed with the plan. Cristine Swift RN documented in this encounter [facility] 07-03-2021 Note HNO ID: [id number] Author: Cristine Swift RN Service: ? Author Type: Nurse Clinician Type: Progress Notes Filed: 07/03/2021 2:11 PM Note Text: Patient called and instructed to stop her Coumadin on 07/11/21 in preparation for her manometry on 07/16. I instructed patient to restart her coumadin the evening of 07/16. Patient acknowledged understanding. Cristine Swift RN [facility] 07-03-2021 History of Presen t illness Narrative Patient called and instructed to stop her Coumadin on 07/11/21 in preparation for her manometry on 07/16. I instructed patient to restart her coumadin the evening of 07/16. Patient acknowledged understanding. Cristine Swift RN documented in this encounter [facility] 07-01-2021 Miscellaneous Notes The Anticoag Management letter has been sent to the PCP, Wilton Navas MD via facsimile in regards to holding Coumadin for Mano on 07.16.21 [facility] P: [phone] Ext [phone] documented in this encounter [facility] 07-01-2021 Miscellaneous Notes I called the patient and verbally discussed and reviewed the information about esophageal manometry. All of patient's questions were answered. Patient agreed to be scheduled on 07/16/21 at 9:00 AM. Patient informed me that her PCP is managing her coumadin. She saw him on 06/25 and told her she could hold the coumadin for a few days to complete any testing. I told Concepcion we will send Dr. Navas a letter asking for more detailed instructions. I mailed the patient written information about esophageal manometry and the prep instructions and directions for the appointment. Patient was informed that she will need to follow up with Dr. Toney for test results. Cristine Swift RN documented in this encounter [facility] documented as of this encounter (statuses as of 07/01/2021) [facility] History of Past illness Narrative* Problem Noted Date Resolved Date Leukocytopenia, unspecified 10/14/200711/28 documented as of this encounter (statuses as of 07/01/2021) [facility] History of Past illness Narrative* Problem Noted Date Resolved Date Leukocytopenia, unspecified 10/14/200711/28 documented as of this encounter (statuses as of 07/03/2021) [facility] History of Past illness Narrative* Problem Noted Date Resolved Date Leukocytopenia, unspecified 10/14/200711/28 documented as of this encounter (statuses as of 07/21/2021) [facility] History of Past illness Narrative* Problem Noted Date Resolved Date Leukocytopenia, unspecified 10/14/200711/28 documented as of this encounter (statuses as of 08/20/2021) [facility] History of Past illness Narrative* Problem Noted Date Resolved Date Leukocytopenia, unspecified 10/14/200711/28 documented as of this encounter (statuses as of 08/29/2021) [facility] History of Past illness Narrative* Problem Noted Date Resolved Date Leukocytopenia, unspecified 10/14/200711/28 documented as of this encounter (statuses as of 09/04/2021) [facility] Diagnosis Dysphagia, unspecified type- Primary Dysphagia, unspecified type documented in this encounter [facility] Summary Purpose Family History No Family History Records FoundNo Family History Records Found Advance Directives Documents on File Type Date Recorded 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 Advance Directive(s) 08/06/2021 7:29 AM Additional Source Comments Source Comments (unrecognize d section and content) In the event this informatio n is protected by the Federal Confidentiality of Alcohol and Drug Abuse Patient Records regulations: The Federal rules restrict any use of the information to criminally investigate or prosecute any alcohol or drug abuse patient.[facility] the event this information is protected by the Federal Confidentiality of Alcohol and Drug Abuse Patient Records regulations: The Federal rules restrict any use of the information to criminally investigate or prosecute any alcohol or drug abuse patient.[facility] the event this information is protected by the Federal Confidentiality of Alcohol and Drug Abuse Patient Records regulations: The Federal rules restrict any use of the information to criminally investigate or prosecute any alcohol or drug abuse patient.[facility] the event this information is protected by the Federal Confidentiality of Alcohol and Drug Abuse Patient Records regulations: The Federal rules restrict any use of the information to criminally investigate or prosecute any alcohol or drug abuse patient.[facility] the event this information is protected by the Federal Confidentiality of Alcohol and Drug Abuse Patient Records regulations: The Federal rules restrict any use of the information to criminally investigate or prosecute any alcohol or drug abuse patient.[facility] the event this information is protected by the Federal Confidentiality of Alcohol and Drug Abuse Patient Records regulations: The Federal rules restrict any use of the information to criminally investigate or prosecute any alcohol or drug abuse patient.[facility] the event this information is protected by the Federal Confidentiality of Alcohol and Drug Abuse Patient Records regulations: The Federal rules restrict any use of the information to criminally investigate or prosecute any alcohol or drug abuse patient.[facility] the event this information is protected by the Federal Confidentiality of Alcohol and Drug Abuse Patient Records regulations: The Federal rules restrict any use of the information to criminally investigate or prosecute any alcohol or drug abuse patient.[facility] Reason for Visit (unrecogniz ed section and content) Reason Comments Anticoagulation Reason Comments Future Appointment reschedule manometry Reason Comments Consult Reason Comments Appointment Cancelled Care Teams (unrecognized sec tion and content) Waste Chopper Relationship Specialty Start Date End Date Wilton Navas Chi PCP - General Gerontology 09/23/16 Waste Chopper Relationship Specialty Start Date End Date Wilton Navas Chi PCP - General Gerontology 09/23/16 Waste Chopper Relationship Specialty Start Date End Date Wilton Navas Chi PCP - General Gerontology 09/23/16 INFORMATION SOURCE (unrecogn ized section and content) DATE CREATED AUTHOR AUTHOR'S JNIG ATION 08/22/2021 [place] FOR RECORDS PERTAINING TO PATIENTS WHO ARE OR HAVE BEEN ENROLLED IN A CHEMICAL DEPENDENCY/SUBSTANCEABUSE PROGRAM, SOME INFORMATION MAY BE OMITTED. This clinical summary was aggregated from multiple sources. Caution should be exercised in using it in the provision of clinical care. This summary normalizes information from multiple sources, and as a consequence, information in this document may materially change the coding, format and clinical context of patient data. In addition, data may be omitted in some cases. CLINICAL DECISIONS SHOULD BE BASED ON THE PRIMARY CLINICAL RECORDS. [facility] [employer] [facility]. provides no warranty or guarantee of the accuracy or completeness of information in this document.
== END | disposition home or self-care (01) ==
LOC: LAB 15:15
PROVIDERS: PCP Family Medicine Geriatric Medicine; Referring Provider Anesthesiology Pain Medicine; Visit Provider Anesthesiology Pain Medicine
DX: F11.20 Opioid dependence, uncomplicated (principal)
CPT/HCPCS: 80307

== ENCOUNTER → 2023-06-29 | Outpatient (CLI) | payer MEDICARE, OTHER, SELFPAY ==
[2023-06-29 13:25] LABS: Absolute Lymphocyte Count 1.55 X10^3/uL (0.83-4.51); Absolute Neutrophil Count 1.8 X10^3/uL (2.0-7.7); Basophil# 0.03 X10^3/uL; Basophil% 0.8 % (0-1); Eosinophil# 0.16 X10^3/uL; Hematocrit 39.7 % (37-47); Hemoglobin 12.9 g/dL (12.0-15.0); Lymphocyte # 1.55 X10^3/ul (0.83-4.51); Lymphocyte % 39.1 % (19-41); Mean Corp Hgb Conc 32.5 g/dL (32-36); Mean Corpuscular Hgb 29.6 pg (27.0-32.0); Mean Corpuscular Volume 91.1 fL (81-99); Mean Platelet Vol. 9.6 fl (6.2-12.0); Monocyte# 0.38 X10^3/uL; Monocyte% 9.6 % (0-10); NRBC Flagged by Analyzer 0 % (0-5); Neutrophil # 1.83 X10^3/uL (2.7-7.7); Neutrophil % 46.2 % (47-70); Platelet Count 241 K/mm3 (150-450); RBC Distribution Width CV 12.7 % (11.6-14.6); RBC Distribution Width SD 42.5 fl (35.1-43.9); Red Blood Count 4.36 M/mm3 (4.2-5.4)
== END | disposition home or self-care (01) ==
LOC: LAB 12:56
PROVIDERS: PCP Family Medicine Geriatric Medicine; Referring Provider Internal Medicine Rheumatology; Visit Provider Internal Medicine Rheumatology
DX: R79.89 Other specified abnormal findings of blood chemistry (principal)
CPT/HCPCS: 36415; 85025

== ENCOUNTER → 2023-07-14 | Outpatient (CLI) | payer MEDICARE, OTHER, SELFPAY ==
[2023-07-14 18:28] LABS: M R Staph aureus DNA By PCR Negative (Negative); Probe Check PASS; Specimen Processing Control PASS; Staph aureus DNA By PCR NEGATIVE (Negative)
== END | disposition home or self-care (01) ==
LOC: POLAB3 15:43
PROVIDERS: PCP Family Medicine Geriatric Medicine; Visit Provider Family Medicine Geriatric Medicine
DX: L03.115 Cellulitis of right lower limb (principal); B95.62 Methicillin resistant Staphylococcus aureus infection as the cause of diseases classified elsewhere
CPT/HCPCS: 87070; 87205; 87640

== ENCOUNTER 2023-07-27 14:00 | Outpatient (RCR) | payer MEDICARE, OTHER, SELFPAY ==
[2023-07-20 14:05] VITALS: BP 167/61; PULSE 72; RESP 18; BMI 25.6
--- NOTE | 2023-07-20 16:01 | HP.PCM_ITS ---
History of Present Illness Date of Service: 07/20/23 Chief Complaint: Nonhealing laceration to the right pretibial surface History of Wound: This is a 68-year-old female who presents following a traumatic injury to her right pretibial surface approximately 2 weeks prior to presentation. While standing on a stepstool, she had a misstep, sustaining a laceration to the right pretibial surface. The laceration is failed to heal. She has been evaluated by her primary care physician, Dr. Navas, who treated the patient for a developing cellulitis, and prescribed doxycycline 100 mg p.o. twice daily for 7 days and Keflex 500 mg every 6 hours for 7 days, both of which have now been completed. According the patient, the periwound erythema and cellulitic changes have improved significantly. She has recently been using antibiotic ointment topically. The patient has previously been treated at the [facility] for a traumatic hematoma of the left thigh, which required incision and drainage and evacuation and debridement of her hematoma on August 12, 2022. She remained the patient at the [facility] until the conclusion of the healing process on February 08, 2023. The patient is active and functional. The patient has a history of DVT in the lower extremity, for which she remains on Coumadin orally. 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 Long-term current use of tocilizumab Melanoma Neuropathy Non-smoker Open wound of left thigh Recurrent deep vein thrombosis of lower extremity Restless legs Rheumatic fever Rheumatoid arthritis Rheumatoid arthritis Scleroderma Shortness of breath on exertion Skin necrosis Traumatic hematoma of left thigh Traumatic open wound of right lower leg Ulcer of left thigh Vertigo Wound infection Home Medications pregabalin 100 mg capsule (Lyrica) 75 mg PO TID pain 06/08/13 [History Last Taken 08/12/22] oxycodone myristate 13.5 mg capsule sprinkle extend release 12hr(DON'T CRUSH) (Xtampza ER) 9 mg PO BID pain 09/12/20 [History Last Taken 08/12/22] estradiol 1 mg tablet 1 mg PO DAILY hormones 12/23/20 [History Last Taken 08/11/22] warfarin 2 mg tablet 2 mg PO DAILY blood thinner 12/23/20 [History Last Taken 08/05/22] amitriptyline 25 mg tablet 25 mg PO QHS mental health 08/06/22 [History Last Taken 08/11/22] acetaminophen 500 mg tablet 1,000 mg (2 x 500 mg) PO Q8 #0 tabs 08/07/22 [Rx Last Taken 08/11/22] tocilizumab 200 mg/10 mL (20 mg/mL) intravenous solution (Actemra) 200 mg IV .[id number] 08/11/22 [History Last Taken 07/16/22] L.acidophil,salivari-Bifido bifidum-Strep thermoph 175 mg capsule (Acidophilus Probiotic Blend) 1 cap PO DAILY 30 days #30 caps 08/14/22 [Rx Last Taken Unknown] levofloxacin 750 mg tablet 750 mg PO DAILY 14 days #14 tabs 08/14/22 [Rx Last Taken Unknown] oxycodone-acetaminophen 5 mg-325 mg tablet (Percocet) 1 tab PO Q6H PRN pain (scale score 7-10) 7 days #28 tabs 08/14/22 [Rx Last Taken Unknown] diazepam 5 mg tablet (Valium) 5 mg PO TID PRN spasms #20 tabs 09/05/22 [Rx Last Taken Unknown] diazepam 5 mg tablet (Valium) 5 mg PO BID PRN spasms #14 tabs 09/17/22 [Rx Last Taken Unknown] cephalexin 500 mg capsule 500 mg PO 07/20/23 [History Last Taken Unknown] doxycycline hyclate 100 mg tablet 100 mg PO BID 07/20/23 [History Last Taken Unknown] Allergy/AdvReac Type Severity Reaction Status Date / Time No Known Allergies Allergy Verified 08/12/22 10:04 Family History Sister Ovarian cancer Asthma Arthritis Cervical cancer Suicide attempt Father CAD (coronary artery disease) Skin cancer Brother CAD (coronary artery disease) Brother CAD (coronary artery disease) Mother Diabetes Other Breast cancer Cancer Surgical History History of appendectomy History of appendectomy History of hernia repair History of hernia repair History of hysterectomy History of hysterectomy Social History household members: spouse Smoking Status: Never smoker second hand exposure: No alcohol intake: never substance use type: does not use what type of physical activity do you participate in: walking frequency: 3-4 times per week lesly/pentecostalism: None seatbelt use: always do you feel safe at home: Yes additional social history: Does Not Take Aspirin Does Not Take Ibuprofen Vital Signs Vital Signs Vital Signs: 07/20/23 14:05 Pulse Rate 72 Respiratory Rate 18 Blood Pressure 167/61 H Blood Pressure Mean 96 Blood Pressure Source Monitor Blood Pressure Position Semi-Fowlers Blood Pressure Location Left Arm Oxygen Delivery Method Room Air Weight Weight: 140 lb Body Mass Index (BMI) 25.6 Physical Exam Const alert, oriented x3, no apparent distress, average body habitus and well nourished Constitutional Narrative: The patient's BMI is 25.6 General Appearance: cooperative, comfortable, well kempt and well developed Orientation / Consciousness: awake, oriented to person, oriented to place and oriented to time Exam Limitations: no limitations HEENT normocephalic, head/scalp atraumatic and hearing grossly normal bilaterally Head and Scalp: normal to inspection, normocephalic and atraumatic Nose: external nose normal External Ear: external ears normal Eyes PERRL and EOMs intact bilaterally General Eye: normal appearance of both eyes Neck full ROM Resp normal respiratory effort, normal air movement, no retractions, no use of accessory muscles and clear to auscultation bilaterally Effort and Inspection: able to speak in complete sentences and symmetric chest movement Cardio regular rate, regular rhythm, S1 normal heart sound and S2 normal heart sound Extremity no calf tenderness General Extremity: Negative for clubbing or cyanosis Skin Wound Narrative: There is no significant swelling or edema in the patient's lower extremities. Peripheral extremities appear warm and well-perfused. A nonhealed laceration is noted on the right pretibial surface. There is a necrotic skin flap overlying a large portion of the patient's traumatic wound. There is no significant associated erythema or cellulitic changes. There is a moderate amount of bioburden and necrotic tissue. Dimensions are documented elsewhere. Neuro oriented x3, CN's II-XII intact bilaterally, moves all extremities and no focal motor deficits Sensorium / Orientation: awake, alert, oriented to person, oriented to place and oriented to time Psych Appearance: grossly normal and appropriate Attitude: calm Activity / Motor Behavior: appropriate eye contact Speech: normal speech Mood & Affect: euthymic mood Thought Process: normal thought process Thought Content: normal thought content Attention / Concentration: attention grossly intact Debridement Note Debridement Note Wound debrided: Right pretibial surface laceration Laterality: Right Type of Debridement: Excisional debridement Anesthesia Used: 5% Lidocaine Gel Depth: Down to and including healthy tissue and in the subcutaneous layer Percentage of wound debrided: 100 Instrument Used: 5mm curette, Forceps and - (Scissors) Tissue Removed: Bioburden and necrotic, nonviable tissue Severity: Fat Layer Exposed Amount of bleeding with debridement: Mild Bleeding Controlled with: Compression and gauze Patient tolerated procedure: Patient tolerated procedure well Debridement Free Text: The necrotic skin flap was sharply excised using forceps and small scissors. Post-Debridement Measurements and Additional Note: Post-Debridement Measurements/Treatment - Nurse 1 - General Ulcer Assessment Start: 07/20/23 14:05 Freq: Status: Active Protocol: MYRA.[email or web address] Activity Type Activity Date Activity User E-sign Co-sign Detail Recorded Client Recorded Date Recorded By Document 07/20/23 14:05 KW Desktop 07/20/23 14:15 KW 07/20/23 14:05 - Today's Visit Information Type of service Initial Visit Arrival Mode Ambulatory Patient Identification Verified (Name & Yes ) Height and Weight Height 5 ft 2 in Weight 140 lb Weight in Pounds 140.0 lbs Body Mass Index (BMI) 25.6 BMI Classification Overweight BSA - Bandar 1.64 Vital Signs Pulse Rate (60-100) 72 Pulse Location Monitor Respiratory Rate (12-18) 18 Respiratory rate source Observation Oxygen Delivery Method Room Air Blood Pressure (90/60-120/80) 167/61 H Blood Pressure Mean 96 Source Monitor Position Semi-Fowlers Blood Pressure Location Left Arm History Since Last Visit- (Skip if this is Patient's initial visit) Left Footwear Regular Shoe Right Footwear Regular Shoe Pain Scale: 0-10 Numeric Is Patient Pain Free? Yes Communication Assessment Preferred language Trinidadian Able to Read Yes Able to Write Yes Communication Tools None Caregiver Communication Skills No Impairment Impairment Right Hearing Abillity Normal Left Hearing Abillity Normal Visual Assistive Devices None Teaching Assessment Preferences Verbal,Written, Demonstration Barriers to Learning None Readiness To Learn Excellent Willingness to Engage in Self Management High Activies Readiness to Engage in Self Management High Activities Anxiety Level Calm Cooperation Cooperative Perception Coherent Interest in Health Problem Asks Questions Education Importance Acknowledges Need Does Patient Smoke tobacco or other Yes substances Smoking Status Never smoker Is Patient Diabetic No Functional Assessment Recent Decline in Ability to Perform Denies Any Declines Culture/Shinto/Computer Numerical Control Operator Cultural/Shinto Needs that may affect No Treatment Plan Would you allow our hospital pluck trimmer to No meet you for the purpose of spiritual/ emotional support? Computer Numerical Control Operator to contact place of yarsani No Teaching: Wound Center Welcome to the [facility] Trinidadian WC - Nurse 1 - General Ulcer Measurement Start: 07/20/23 14:05 Freq: Status: Active Protocol: Activity Type Activity Date Activity User E-sign Co-sign Detail Recorded Client Recorded Date Recorded By Document 07/20/23 14:05 KW Desktop 07/20/23 14:15 KW 07/20/23 14:05 Wound Center Nurse 1 #2 RT ANT LEG -Current Size (cm) - Length 4.6 -Current Size (cm) - Width 3 -Current Size (cm) - Depth 0.1 -Total Square Cm 13.8 -Date of Last Picture (Recall this 07/20/23 field) -Photo Taken Yes -Exudate Amt Small -Exudate Type Serosanguineous -Wound Margin Distinct, Outline Attached -Granulation Amt Large (67-100%) -Granulation Quality Red -Necrosis Amt Small (1-33%) -Necrotic Tissue Type Eschar -Texture (Jannet-wound Skin Appearance) Assessed -Color (Jannet-wound Skin Appearance) No Abnormality, Assessed, Ecchymosis -Temperature (Jannet-wound Skin No Abnormality Appearance) (Pt Warm) -Tenderness on Palpation (Jannet-wound Yes Skin Appearance) -Ulcer Cleansing Rinsed/ Irrigated with Saline -Foul Odor after Cleansing No -Anesthetic Used 5% Lidocaine Gel Right Calf (cm) 34.2 Right Ankle (cm) 21 WC - Nurse 2 - General Ulcer CM Notes Start: 07/20/23 14:05 Freq: Status: Active Protocol: Activity Type Activity Date Activity User E-sign Co-sign Detail Recorded Client Recorded Date Recorded By Document 07/20/23 14:32 Laptop 07/20/23 14:36 JF 07/20/23 14:32 Wound Center Nurse 2 #2 RT ANT LEG -Time 14:35 -Correct Patient Yes -Correct Side, Site, Position Yes -Correct Procedure Yes -Procedure Performed Yes -Type of Procedure Debridement -Clinical Debridement Subcutaneous -Tissue Removed Subcutaneous -Post Debridement (cm) - Length 3.8 -Post Debridement (cm) - Width 2.0 -Post Debridement (cm) - Depth 0.2 -Total Square (Post) (cm) 7.60 -Area of Debridement (cm) - Length 3.8 -Area of Debridement (cm) - Width 2.0 -Total Square (Area) (cm) 7.60 -Tunneling No -Undermining/Tunneling No -Circular Undermining No -Wound/Ulcer Outcome Not Healed -Ulcer Cleansing Rinsed/ Irrigated with Saline -Foul Odor after Cleansing No -Bioengineered Tissue No -Bleeding Controlled with Pressure -Treatment Response Procedure Tolerated Well -Offloading No -Debridement - Subq, 1st 20sq cm Yes Pain Scale: 0-10 Numeric Is Patient Pain Free? Yes - Nurse 3 - General Ulcer D/C NN Start: 07/20/23 14:05 Freq: Status: Active Protocol: Activity Type Activity Date Activity User E-sign Co-sign Detail Recorded Client Recorded Date Recorded By Document 07/20/23 14:47 KW Desktop 07/20/23 14:48 KW 07/20/23 14:47 Wound Care Center Nurse 3 #2 RT ANT LEG -Primary Dressing Applied Mepilex Border, Promogran Jannet Matter -Mepilex Border 1 -Promogran Jannet Matter 1 Right -Tubular Bandage Single Layer -Size of Tubigrip Used Size D -Size D ($) 1 Pain Scale: 0-10 Numeric Is Patient Pain Free? Yes WC - Visit Discharge Discharge Condition Stable Ambulatory Status Cane Transportation Private Auto Medication Reconcilliation completed & No provided to patient/care provider Clinical Summary of Care Provided Yes Assessment/Plan Assessment/Plan (1) Traumatic open wound of right lower leg: CODE(S): S81.801A - Unspecified open wound, right lower leg, initial encounter QUALIFIERS: Encounter type: initial encounter Qualified Code(s): S81.801A - Unspecified open wound, right lower leg, initial encounter (2) Wound infection: CODE(S): T14.8XXA - Other injury of unspecified body region, initial encounter; L08.9 - Local infection of the skin and subcutaneous tissue, unspecified (3) Fibromyalgia: CODE(S): M79.7 - Fibromyalgia (4) Scleroderma: CODE(S): M34.9 - Systemic sclerosis, unspecified (5) Rheumatoid arthritis: CODE(S): M06.9 - Rheumatoid arthritis, unspecified (6) History of deep vein thrombosis: CODE(S): Z86.718 - Personal history of other venous thrombosis and embolism (7) Neuropathy: CODE(S): G62.9 - Polyneuropathy, unspecified (8) History of opioid abuse: CODE(S): F11.11 - Opioid abuse, in remission (9) Vertigo: CODE(S): R42 - Dizziness and giddiness (10) Rheumatoid arthritis: CODE(S): M06.9 - Rheumatoid arthritis, unspecified (11) Hyperlipidemia: CODE(S): E78.5 - Hyperlipidemia, unspecified (12) History of hernia repair: CODE(S): Z98.890 - Other specified postprocedural states; Z87.19 - Personal history of other diseases of the digestive system (13) History of hysterectomy: CODE(S): Z90.710 - Acquired absence of both cervix and uterus (14) History of appendectomy: CODE(S): Z90.49 - Acquired absence of other specified parts of digestive tract PLAN: Plan This is a 68-year-old female who presents with a nonhealing laceration of the right pretibial surface. There is associated necrotic tissue and bioburden. Patient has recently been treated with oral antibiotics by her primary care physician after she developed periwound cellulitis. Cellulitis has resolved. Patient has been encouraged to optimize her nutritional intake. We are to implement the use of moistened Jannet topically to the wound on the right pretibial surface. The patient has been instructed in the appropriate means of application. The patient is to apply the the wound dressing on a daily basis. She is to be allowed to shower. She is to return for reevaluation in 1 week. Total time: 48 minutes
--- NOTE | 2023-07-21 08:36 | WC ---
07/20/2023 RIGHT ANT LEG
[2023-07-27 14:37] VITALS: BP 132/76; PULSE 83; RESP 18; TEMP 35.9; BMI 25.6
--- NOTE | 2023-07-27 14:58 | HP.PCM_ITS ---
History of Present Illness Date of Service: 07/27/23 Chief Complaint: Nonhealing laceration to the right pretibial surface History of Wound: This is a 68-year-old female who presented following a traumatic injury to her right pretibial surface approximately 2 weeks prior to presentation. While standing on a stepstool, she had a misstep, sustaining a laceration to the right pretibial surface. The laceration is failed to heal. She has been evaluated by her primary care physician, Dr. Navas, who treated the patient for a developing cellulitis, and prescribed doxycycline 100 mg p.o. twice daily for 7 days and Keflex 500 mg every 6 hours for 7 days, both of which have now been completed. According the patient, the periwound erythema and cellulitic changes have improved significantly. She has recently been using antibiotic ointment topically. The patient has previously been treated at the [facility] for a traumatic hematoma of the left thigh, which required incision and drainage and evacuation and debridement of her hematoma on August 12, 2022. She remained a patient at the [facility] until the conclusion of the healing process on February 08, 2023. The patient is active and functional. The patient has a history of DVT in the lower extremity, for which she remains on Coumadin orally. 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 of anticoagulants Long-term current use of tocilizumab Melanoma Neuropathy Non-smoker Open wound of left thigh Recurrent deep vein thrombosis of lower extremity Restless legs Rheumatic fever Rheumatoid arthritis Rheumatoid arthritis Scleroderma Shortness of breath on exertion Skin necrosis Traumatic hematoma of left thigh Traumatic open wound of right lower leg Ulcer of left thigh Vertigo Wound infection Home Medications pregabalin 100 mg capsule (Lyrica) 75 mg PO TID pain 06/08/13 [History Last Taken 08/12/22] oxycodone myristate 13.5 mg capsule sprinkle extend release 12hr(DON'T CRUSH) (Xtampza ER) 9 mg PO BID pain 09/12/20 [History Last Taken 08/12/22] estradiol 1 mg tablet 1 mg PO DAILY hormones 12/23/20 [History Last Taken 08/11/22] warfarin 2 mg tablet 2 mg PO DAILY blood thinner 12/23/20 [History Last Taken 08/05/22] amitriptyline 25 mg tablet 25 mg PO QHS mental health 08/06/22 [History Last Taken 08/11/22] acetaminophen 500 mg tablet 1,000 mg (2 x 500 mg) PO Q8 #0 tabs 08/07/22 [Rx Last Taken 08/11/22] tocilizumab 200 mg/10 mL (20 mg/mL) intravenous solution (Actemra) 200 mg IV .A3AEGCI 08/11/22 [History Last Taken 07/16/22] L.acidophil,salivari-Bifido bifidum-Strep thermoph 175 mg capsule (Acidophilus Probiotic Blend) 1 cap PO DAILY 30 days #30 caps 08/14/22 [Rx Last Taken Unknown] levofloxacin 750 mg tablet 750 mg PO DAILY 14 days #14 tabs 08/14/22 [Rx Last Taken Unknown] oxycodone-acetaminophen 5 mg-325 mg tablet (Percocet) 1 tab PO Q6H PRN pain (scale score 7-10) 7 days #28 tabs 08/14/22 [Rx Last Taken Unknown] diazepam 5 mg tablet (Valium) 5 mg PO TID PRN spasms #20 tabs 09/05/22 [Rx Last Taken Unknown] diazepam 5 mg tablet (Valium) 5 mg PO BID PRN spasms #14 tabs 09/17/22 [Rx Last Taken Unknown] cephalexin 500 mg capsule 500 mg PO 07/20/23 [History Last Taken Unknown] doxycycline hyclate 100 mg tablet 100 mg PO BID 07/20/23 [History Last Taken Unknown] Allergy/AdvReac Type Severity Reaction Status Date / Time No Known Allergies Allergy Verified 08/12/22 10:04 Family History Sister Ovarian cancer Asthma Arthritis Cervical cancer Suicide attempt Father CAD (coronary artery disease) Skin cancer Brother CAD (coronary artery disease) Brother CAD (coronary artery disease) Mother Diabetes Other Breast cancer Cancer Surgical History History of appendectomy History of appendectomy History of hernia repair History of hernia repair History of hysterectomy History of hysterectomy Social History household members: spouse Smoking Status: Never smoker second hand exposure: No alcohol intake: never substance use type: does not use what type of physical activity do you participate in: walking frequency: 3-4 times per week lesly/restorationism: None seatbelt use: always do you feel safe at home: Yes additional social history: Does Not Take Aspirin Does Not Take Ibuprofen Vital Signs Vital Signs Vital Signs: 07/27/23 14:37 Temperature 96.6 F L Temperature Source Temporal Pulse Rate 83 Respiratory Rate 18 Blood Pressure 132/76 H Blood Pressure Mean 94 Blood Pressure Source Monitor Blood Pressure Position Semi-Fowlers Blood Pressure Location Left Arm Weight Weight: 140 lb Body Mass Index (BMI) 25.6 Physical Exam Const alert, oriented x3, no apparent distress, average body habitus and well nourished Constitutional Narrative: The patient's BMI is 25.6 General Appearance: cooperative, comfortable, well kempt and well developed Orientation / Consciousness: awake, oriented to person, oriented to place and oriented to time Exam Limitations: no limitations HEENT normocephalic, head/scalp atraumatic and hearing grossly normal bilaterally Head and Scalp: normal to inspection, normocephalic and atraumatic Nose: external nose normal External Ear: external ears normal Eyes PERRL and EOMs intact bilaterally General Eye: normal appearance of both eyes Neck full ROM Resp normal respiratory effort, normal air movement, no retractions, no use of accessory muscles and clear to auscultation bilaterally Effort and Inspection: able to speak in complete sentences and symmetric chest movement Cardio regular rate, regular rhythm, S1 normal heart sound and S2 normal heart sound Extremity no calf tenderness General Extremity: Negative for clubbing or cyanosis Skin Wound Narrative: There is no significant swelling or edema in the patient's lower extremities. Peripheral extremities appear warm and well-perfused. A nonhealed laceration is noted on the right pretibial surface. The base of the wound is pink and healthy in appearance, much improved from that at the patient's initial presentation. There is no sign of infection or cellulitis. Dimensions are documented elsewhere. There is a small amount of bioburden. Neuro oriented x3, CN's II-XII intact bilaterally, moves all extremities and no focal motor deficits Sensorium / Orientation: awake, alert, oriented to person, oriented to place and oriented to time Psych Appearance: grossly normal and appropriate Attitude: calm Activity / Motor Behavior: appropriate eye contact Speech: normal speech Mood & Affect: euthymic mood Thought Process: normal thought process Thought Content: normal thought content Attention / Concentration: attention grossly intact Debridement Note Debridement Note Wound debrided: Right pretibial surface laceration Laterality: Right Type of Debridement: Excisional debridement Anesthesia Used: 5% Lidocaine Gel Depth: Down to and including healthy tissue and in the subcutaneous layer Percentage of wound debrided: 100 Instrument Used: 5mm curette and - Tissue Removed: Bioburden and necrotic, nonviable tissue Severity: Fat Layer Exposed Amount of bleeding with debridement: Mild Bleeding Controlled with: Compression and gauze Patient tolerated procedure: Patient tolerated procedure well Post-Debridement Measurements and Additional Note: Post-Debridement Measurements/Treatment - Nurse 1 - General Ulcer Assessment Start: 07/20/23 14:05 Freq: Status: Active Protocol: [email or web address] Activity Type Activity Date Activity User E-sign Co-sign Detail Recorded Client Recorded Date Recorded By Document 07/20/23 14:05 KW Desktop 07/20/23 14:15 KW Document 07/27/23 14:37 RB Desktop 07/27/23 14:40 RB 07/20/23 07/27/23 14:05 14:37 - Today's Visit Information Type of service Initial Visit Follow-up Visit (Physician/PHYSICIAN [facility] ) Arrival Mode Ambulatory Ambulatory Transfer Assistance None Patient Identification Verified (Name & Yes Yes ) Patient Requires Transmission-Based No Precautions Height and Weight Height 5 ft 2 in Weight 140 lb Weight in Pounds 140.0 lbs Body Mass Index (BMI) 25.6 25.6 BMI Classification Overweight Overweight BSA - Bandar 1.64 Vital Signs Temperature (97.8 F-99.1 F) 96.6 F L Temperature Source Temporal Pulse Rate (60-100) 72 83 Pulse Location Monitor Monitor Respiratory Rate (12-18) 18 18 Respiratory rate source Observation Observation Oxygen Delivery Method Room Air Blood Pressure (90/60-120/80) 167/61 H 132/76 H Blood Pressure Mean 96 94 Source Monitor Monitor Position Semi-Fowlers Semi-Fowlers Blood Pressure Location Left Arm Left Arm History Since Last Visit- (Skip if this is Patient's initial visit) Have you changed medications since your No last visit? Any new allergies or adverse reactions No Had a fall/change in ADL's that may No increase risk of falls Signs or symptoms of abuse and/or No neglect since last visit Have you been in the hospital since your No last visit? Has dressing in place as prescribed Yes Has compression in place as prescribed Yes Has offloadiing in place as prescribed No Experienced any changes in pain level or No management Left Footwear Regular Shoe Right Footwear Regular Shoe Pain Scale: 0-10 Numeric Is Patient Pain Free? Yes Yes Communication Assessment Preferred language [place]er Able to Read Yes Able to Write Yes Communication Tools None Caregiver Communication Skills No Impairment Impairment Right Hearing Abillity Normal Left Hearing Abillity Normal Visual Assistive Devices None Teaching Assessment Preferences Verbal,Written, Demonstration Barriers to Learning None Readiness To Learn Excellent Willingness to Engage in Self Management High Activies Readiness to Engage in Self Management High Activities Anxiety Level Calm Cooperation Cooperative Perception Coherent Interest in Health Problem Asks Questions Education Importance Acknowledges Need Does Patient Smoke tobacco or other Yes substances Smoking Status Never smoker Is Patient Diabetic No Functional Assessment Recent Decline in Ability to Perform Denies Any Declines Culture/Worship/Auto Service Writer Cultural/Worship Needs that may affect No Treatment Plan Would you allow our hospital dry chain worker to No meet you for the purpose of spiritual/ emotional support? Auto Service Writer to contact place of anabaptist No Teaching: Wound Center Welcome to the Wound Care Center English RENTERIA - Nurse 1 - General Ulcer Measurement Start: 07/20/23 14:05 Freq: Status: Active Protocol: Activity Type Activity Date Activity User E-sign Co-sign Detail Recorded Client Recorded Date Recorded By Document 07/20/23 14:05 KW Desktop 07/20/23 14:15 KW Document 07/27/23 14:37 RB Desktop 07/27/23 14:40 RB 07/20/23 07/27/23 14:05 14:37 Wound Center Nurse 1 #2 RT ANT LEG -Combined with other wound No -Current Size (cm) - Length 4.6 2 -Current Size (cm) - Width 3 1.9 -Current Size (cm) - Depth 0.1 0.1 -Total Square Cm 13.8 3.8 -Date of Last Picture (Recall this 07/20/23 field) -Photo Taken Yes -Tunneling No -Undermining/Tunneling No -Circular Undermining No -Exudate Amt Small Medium -Exudate Type Serosanguineous Serosanguineous -Wound Margin Distinct, Distinct, Outline Outline Attached Attached -Granulation Amt Large (67-100%) Medium (34-66%) -Granulation Quality Red [place] -Slough/Fibrin Yes -Necrosis Amt Small (1-33%) Medium (34-66%) -Necrotic Tissue Type Eschar Adherent Slough -Structure Exposed N/A -Texture (Jannet-wound Skin Appearance) Assessed Assessed -Moisture (Jannet-wound Skin Appearance) Assessed -Color (Jannet-wound Skin Appearance) No Abnormality, Assessed Assessed, Ecchymosis -Temperature (Jannet-wound Skin No Abnormality No Abnormality Appearance) (Pt Warm) (Pt Warm) -Tenderness on Palpation (Jannet-wound Yes No Skin Appearance) -Ulcer Cleansing Rinsed/ Wound Cleanser Irrigated with Saline -Foul Odor after Cleansing No No -Anesthetic Used 5% Lidocaine 5% Lidocaine Gel Gel Lower Limb Edema Present Yes Right Calf (cm) 34.2 35.2 Right Ankle (cm) 21 21 WC - Nurse 2 - General Ulcer CM Notes Start: 07/20/23 14:05 Freq: Status: Active Protocol: Activity Type Activity Date Activity User E-sign Co-sign Detail Recorded Client Recorded Date Recorded By Document 07/20/23 14:32 Laptop 07/20/23 14:36 Document 07/27/23 14:53 Laptop 07/27/23 14:54 07/20/23 07/27/23 14:32 14:53 Wound Center Nurse 2 #2 RT ANT LEG -Time 14:35 14:54 -Correct Patient Yes Yes -Correct Side, Site, Position Yes Yes -Correct Procedure Yes Yes -Procedure Performed Yes Yes -Type of Procedure Debridement Debridement -Clinical Debridement Subcutaneous Subcutaneous -Tissue Removed Subcutaneous Subcutaneous -Post Debridement (cm) - Length 3.8 3.5 -Post Debridement (cm) - Width 2.0 1.8 -Post Debridement (cm) - Depth 0.2 0.1 -Total Square (Post) (cm) 7.60 6.30 -Area of Debridement (cm) - Length 3.8 3.5 -Area of Debridement (cm) - Width 2.0 1.8 -Total Square (Area) (cm) 7.60 6.30 -Tunneling No No -Undermining/Tunneling No No -Circular Undermining No No -Wound/Ulcer Outcome Not Healed Not Healed -Ulcer Cleansing Rinsed/ Rinsed/ Irrigated with Irrigated with Saline Saline -Foul Odor after Cleansing No No -Bioengineered Tissue No No -Bleeding Controlled with Pressure Pressure -Treatment Response Procedure Procedure Tolerated Well Tolerated Well -Offloading No No -Debridement - Subq, 1st 20sq cm Yes Yes Pain Scale: 0-10 Numeric Is Patient Pain Free? Yes Yes - Nurse 3 - General Ulcer D/C NN Start: 07/20/23 14:05 Freq: Status: Active Protocol: Activity Type Activity Date Activity User E-sign Co-sign Detail Recorded Client Recorded Date Recorded By Document 07/20/23 14:47 KW Desktop 07/20/23 14:48 KW 07/20/23 14:47 Wound Care Center Nurse 3 #2 RT ANT LEG -Primary Dressing Applied Mepilex Border, Promogran Jannet Matter -Mepilex Border 1 -Promogran Jannet Matter 1 Right -Tubular Bandage Single Layer -Size of Tubigrip Used Size D -Size D ($) 1 Pain Scale: 0-10 Numeric Is Patient Pain Free? Yes - Visit Discharge Discharge Condition Stable Ambulatory Status Cane Transportation Private Auto Medication Reconcilliation completed & No provided to patient/care provider Clinical Summary of Care Provided Yes Assessment/Plan Assessment/Plan (1) Traumatic open wound of right lower leg: CODE(S): S81.801A - Unspecified open wound, right lower leg, initial encounter QUALIFIERS: Encounter type: initial encounter Qualified Code(s): S81.801A - Unspecified open wound, right lower leg, initial encounter (2) Wound infection: CODE(S): T14.8XXA - Other injury of unspecified body region, initial encounter; L08.9 - Local infection of the skin and subcutaneous tissue, unspecified (3) Fibromyalgia: CODE(S): M79.7 - Fibromyalgia (4) Scleroderma: CODE(S): M34.9 - Systemic sclerosis, unspecified (5) Rheumatoid arthritis: CODE(S): M06.9 - Rheumatoid arthritis, unspecified (6) History of deep vein thrombosis: CODE(S): Z86.718 - Personal history of other venous thrombosis and embolism (7) Neuropathy: CODE(S): G62.9 - Polyneuropathy, unspecified (8) History of opioid abuse: CODE(S): F11.11 - Opioid abuse, in remission (9) Vertigo: CODE(S): R42 - Dizziness and giddiness (10) Rheumatoid arthritis: CODE(S): M06.9 - Rheumatoid arthritis, unspecified (11) Hyperlipidemia: CODE(S): E78.5 - Hyperlipidemia, unspecified (12) History of hernia repair: CODE(S): Z98.890 - Other specified postprocedural states; Z87.19 - Personal history of other diseases of the digestive system (13) History of hysterectomy: CODE(S): Z90.710 - Acquired absence of both cervix and uterus (14) History of appendectomy: CODE(S): Z90.49 - Acquired absence of other specified parts of digestive tract PLAN: Plan This is a 68-year-old female who presented with a nonhealing laceration of the right pretibial surface. There was associated necrotic tissue and bioburden. The patient had recently been treated with oral antibiotics by her primary care physician after she developed periwound cellulitis. Cellulitis resolved. The patient has been encouraged to optimize her nutritional intake. We are to continue the use of moistened Jannet topically to the wound on the right pretibial surface. The patient has been instructed in the appropriate means of application. The patient is to apply the the wound dressing on a daily basis. She is to be allowed to shower. She is to return for reevaluation in 1 week. Total time: 24 minutes
== END 2023-07-27 23:59 | disposition home or self-care (01) ==
LOC: WC 14:00
PROVIDERS: PCP Family Medicine Geriatric Medicine; Referring Provider Family Medicine Geriatric Medicine; Visit Provider Surgery
DX: S81.811A Laceration without foreign body, right lower leg, initial encounter (principal); M34.9 Systemic sclerosis, unspecified; M06.9 Rheumatoid arthritis, unspecified; F11.11 Opioid abuse, in remission; W08.XXXD Fall from other furniture, subsequent encounter; L08.9 Local infection of the skin and subcutaneous tissue, unspecified; G62.9 Polyneuropathy, unspecified; R42 Dizziness and giddiness; E78.00 Pure hypercholesterolemia, unspecified; M79.7 Fibromyalgia; Z79.01 Long term (current) use of anticoagulants; Z79.899 Other long term (current) drug therapy; Z86.718 Personal history of other venous thrombosis and embolism; Z90.710 Acquired absence of both cervix and uterus
CPT/HCPCS: 11042; 99213; G0463

== ENCOUNTER → 2023-07-28 | Outpatient (CLI) | payer MEDICARE, OTHER, SELFPAY ==
[2023-07-28 12:01] LABS: Absolute Neutrophil Count 2.2 X10^3/uL (2.0-7.7); Basophil# 0.03 X10^3/uL; Basophil% 0.9 % (0-1); Eosinophil# 0.16 X10^3/uL; Eosinophils% 4.6 % (0-5); Hematocrit 37.4 % (37-47); Hemoglobin 12.1 g/dL (12.0-15.0); Lymphocyte % 17.3 % (19-41); Mean Corp Hgb Conc 32.4 g/dL (32-36); Mean Corpuscular Hgb 29.1 pg (27.0-32.0); Mean Corpuscular Volume 89.9 fL (81-99); Mean Platelet Vol. 10.3 fl (6.2-12.0); Monocyte# 0.43 X10^3/uL; Monocyte% 12.4 % (0-10); NRBC Flagged by Analyzer 0 % (0-5); Neutrophil # 2.24 X10^3/uL (2.7-7.7); Neutrophil % 64.5 % (47-70); POSITIVE DIFFERENTIAL YES; Platelet Count 186 K/mm3 (150-450); RBC Distribution Width CV 13.2 % (11.6-14.6); RBC Distribution Width SD 43.5 fl (35.1-43.9); Red Blood Count 4.16 M/mm3 (4.2-5.4); White Blood Count 3.5 K/mm3 (4.4-11.0)
[2023-07-28 12:16] LABS: Vitamin D,25 Hydroxy 24.6 ng/mL
[2023-07-28 12:23] LABS: ALB/GLOB Ratio 1.2 RATIO (0.9-2.4); AST(SGOT) 43 U/L (15-37); Alanine Aminotransfer ALT/SGPT 25 U/L (13-56); Albumin, Serum 3.3 g/dL (3.2-5.0); Alkaline Phosphatase 80 U/L (45-117); Anion Gap 4 (5-15); BUN 12 mg/dL (7-18); BUN/Creat Ratio 14.6 RATIO (10-20); Calcium,Total 8.2 mg/dL (8.5-10.1); Chloride 107 mmol/L (98-107); Creatinine, Serum 0.82 mg/dL (0.55-1.02); EST Glomerular Filtration Rate 73 mL/min (>60); Est Glom Filt Rate - Afr Amer 89 mL/min (>60); Globulin 2.7 g/dL (2.2-4.2); Glucose 88 mg/dL (74-106); Potassium 3.7 mmol/L (3.5-5.1); Sodium Level 138 mmol/L (136-145); Thyroid Stim Hormone (TSH) 0.63 uIU/mL (0.358-3.74)
== END | disposition home or self-care (01) ==
LOC: POLAB3 09:40
PROVIDERS: PCP Family Medicine Geriatric Medicine; Visit Provider Family Medicine Geriatric Medicine
DX: R53.83 Other fatigue (principal); E55.9 Vitamin D deficiency, unspecified
CPT/HCPCS: 36415; 80053; 82306; 84443; 85025

== ENCOUNTER 2023-08-02 09:07 | Outpatient (CLI) | payer MEDICARE, OTHER, SELFPAY | END 2023-08-02 23:59 | disposition home or self-care (01) | LOC: PSN 09:08 | PROVIDERS: PCP Family Medicine Geriatric Medicine; Referring Provider Family Medicine Geriatric Medicine; Visit Provider Family Medicine Geriatric Medicine | DX: R68.83 Chills (without fever) (principal) | CPT/HCPCS: 87631 ==

== ENCOUNTER 2023-08-24 15:00 | Outpatient (RCR) | payer MEDICARE, OTHER, SELFPAY ==
[2023-07-28 00:32] VITALS: BP 132/76; PULSE 83; RESP 18; TEMP 35.9; BMI 25.6
[2023-08-10 13:31] VITALS: BP 140/70; PULSE 89; RESP 18; TEMP 35.6; BMI 25.6
--- NOTE | 2023-08-10 16:54 | HP.PCM_ITS ---
History of Present Illness Date of Service: 08/10/23 Chief Complaint: Nonhealing laceration to the right pretibial surface; right forearm laceration History of Wound: This is a 68-year-old female who presented following a traumatic injury to her right pretibial surface approximately 2 weeks prior to presentation. While standing on a stepstool, she had a misstep, sustaining a laceration to the right pretibial surface. The laceration is failed to heal. She has been evaluated by her primary care physician, Dr. Navas, who treated the patient for a developing cellulitis, and prescribed doxycycline 100 mg p.o. twice daily for 7 days and Keflex 500 mg every 6 hours for 7 days, both of which have now been completed. According the patient, the periwound erythema and cellulitic changes have improved significantly. She has recently been using antibiotic ointment topically. The patient has previously been treated at the [facility] for a traumatic hematoma of the left thigh, which required incision and drainage and evacuation and debridement of her hematoma on August 12, 2022. She remained a patient at the [facility] until the conclusion of the healing process on February 08, 2023. The patient is active and functional. The patient has a history of DVT in the lower extremity, for which she remains on Coumadin orally. [facility] Medical History (Updated 08/10/23 @ 17:[address] Marcello Wilson MD) Wound, open, arm, forearm Wound infection Hyperlipidemia Rheumatoid arthritis Vertigo History of opioid abuse Traumatic open wound of right lower leg Ulcer of left thigh Open wound of left thigh Restless legs Difficulty swallowing Gastric reflux Non-smoker Shortness of breath on exertion Leg cramps History of pain when walking History of echocardiogram History of edema Rheumatoid arthritis Traumatic hematoma of left thigh Long-term current use of tocilizumab [employer] (current) use of anticoagulants History of deep vein thrombosis Skin necrosis History of skin cancer Neuropathy Arthritis Contusion of left thigh Contusion of left thigh, initial encounter Recurrent deep vein thrombosis of lower extremity DVT (deep venous thrombosis) High cholesterol GERD (gastroesophageal reflux disease) Hypothyroidism Rheumatic fever Scleroderma Melanoma Headaches, cluster Fibromyalgia Home Medications ?Medication ?Instructions ?Recorded ?Last Taken ?Type pregabalin 100 mg capsule (Lyrica) 75 mg PO TID pain 06/08/13 08/12/22 History oxycodone myristate 13.5 mg 9 mg PO BID pain 09/12/20 08/12/22 History capsule sprinkle extend release 12hr(DON'T CRUSH) (Xtampza ER) estradiol 1 mg tablet 1 mg PO DAILY hormones 12/23/20 08/11/22 History warfarin 2 mg tablet 2 mg PO DAILY blood thinner 12/23/20 08/05/22 History amitriptyline 25 mg tablet 25 mg PO QHS mental health 08/06/22 08/11/22 History acetaminophen 500 mg tablet 1,000 mg (2 x 500 mg) PO Q8 #0 tabs 08/07/22 08/11/22 Rx tocilizumab 200 mg/10 mL (20 200 mg IV .C9AAPIN 08/11/22 07/16/22 History mg/mL) intravenous solution (Actemra) L.acidophil,salivari-Bifido 1 cap PO DAILY 30 days #30 caps 08/14/22 Unknown Rx bifidum-Strep thermoph 175 mg capsule (Acidophilus Probiotic Blend) levofloxacin 750 mg tablet 750 mg PO DAILY 14 days #14 tabs 08/14/22 Unknown Rx oxycodone-acetaminophen 5 mg-325 1 tab PO Q6H PRN pain (scale score 08/14/22 Unknown Rx mg tablet (Percocet) 7-10) 7 days #28 tabs diazepam 5 mg tablet (Valium) 5 mg PO TID PRN spasms #20 tabs 09/05/22 Unknown Rx diazepam 5 mg tablet (Valium) 5 mg PO BID PRN spasms #14 tabs 09/17/22 Unknown Rx cephalexin 500 mg capsule 500 mg PO 07/20/23 Unknown History doxycycline hyclate 100 mg tablet 100 mg PO BID 07/20/23 Unknown History Allergy/AdvReac Type Severity Reaction Status Date / Time No Known Allergies Allergy Verified 08/12/22 10:04 Family History Sister Ovarian cancer Asthma Arthritis Cervical cancer Suicide attempt Father CAD (coronary artery disease) Skin cancer Brother CAD (coronary artery disease) Brother CAD (coronary artery disease) Mother Diabetes Other Breast cancer Cancer Surgical History History of appendectomy History of hysterectomy History of hernia repair History of hernia repair History of hysterectomy History of appendectomy Social History household members: spouse Smoking Status: Never smoker second hand exposure: No alcohol intake: never substance use type: does not use what type of physical activity do you participate in: walking frequency: 3-4 times per week lesly/moravian: None seatbelt use: always do you feel safe at home: Yes additional social history: Does Not Take Aspirin Does Not Take Ibuprofen Vital Signs Vital Signs Vital Signs: 08/10/23 13:31 Temperature 96.1 F L Temperature Source Temporal Pulse Rate 89 Respiratory Rate 18 Blood Pressure 140/70 H Blood Pressure Mean 93 Blood Pressure Source Monitor Blood Pressure Position Semi-Fowlers Blood Pressure Location Left Arm Oxygen Delivery Method Room Air Weight Weight: 140 lb Body Mass Index (BMI) 25.6 Physical Exam Const alert, oriented x3, no apparent distress, average body habitus and well nourished Constitutional Narrative: The patient's BMI is 25.6 General Appearance: cooperative, comfortable, well kempt and well developed Orientation / Consciousness: awake, oriented to person, oriented to place and oriented to time Exam Limitations: no limitations HEENT normocephalic, head/scalp atraumatic and hearing grossly normal bilaterally Head and Scalp: normal to inspection, normocephalic and atraumatic Nose: external nose normal External Ear: external ears normal Eyes PERRL and EOMs intact bilaterally General Eye: normal appearance of both eyes Neck full ROM Resp normal respiratory effort, normal air movement, no retractions, no use of accessory muscles and clear to auscultation bilaterally Effort and Inspection: able to speak in complete sentences and symmetric chest movement Cardio regular rate, regular rhythm, S1 normal heart sound and S2 normal heart sound Extremity no calf tenderness General Extremity: Negative for clubbing or cyanosis Skin Wound Narrative: There is no significant swelling or edema in the patient's lower extremities. Peripheral extremities appear warm and well-perfused. A nonhealed laceration is noted on the right pretibial surface. The base of the wound is pink and healthy in appearance, much improved from that at the patient's initial presentation. There is no sign of infection or cellulitis. Dimensions are documented elsewhere. The wound continues to diminish in size. There is a small amount of bioburden. A new wound is now noted on the patient's right forearm. This is from a recent laceration. There appears to be a nonviable skin flap at this site. The base of the wound is generally pink and healthy in appearance. There is a small amount of bioburden. Dimensions are documented elsewhere. Neuro oriented x3, CN's II-XII intact bilaterally, moves all extremities and no focal motor deficits Sensorium / Orientation: awake, alert, oriented to person, oriented to place and oriented to time Psych Appearance: grossly normal and appropriate Attitude: calm Activity / Motor Behavior: appropriate eye contact Speech: normal speech Mood & Affect: euthymic mood Thought Process: normal thought process Thought Content: normal thought content Attention / Concentration: attention grossly intact Debridement Note Debridement Note Wound debrided: Right pretibial surface laceration Laterality: Right Type of Debridement: Excisional debridement Anesthesia Used: 5% Lidocaine Gel Depth: Down to and including healthy tissue and in the subcutaneous layer Percentage of wound debrided: 100 Instrument Used: 3mm curette and - Tissue Removed: Bioburden Severity: Fat Layer Exposed Amount of bleeding with debridement: Mild Bleeding Controlled with: Compression and gauze Patient tolerated procedure: Patient tolerated procedure well Post-Debridement Measurements and Additional Note: Post-Debridement Measurements/Treatment - Nurse 1 - General Ulcer Assessment Start: 08/10/23 13:31 Freq: Status: Active Protocol: LILIYA Activity Type Activity Date Activity User E-sign Co-sign Detail Recorded Client Recorded Date Recorded By Document 08/10/23 13:31 [id number] 08/10/23 13:34 KW 08/10/23 13:31 - Today's Visit Information Type of service Follow-up Visit (Physician/JANITOR [employer]ER ) Arrival Mode Ambulatory Patient Identification Verified (Name & Yes ) Height and Weight Body Mass Index (BMI) 25.6 BMI Classification Overweight Vital Signs Temperature (97.8 F-99.1 F) 96.1 F L Temperature Source Temporal Pulse Rate (60-100) 89 Pulse Location Monitor Respiratory Rate (12-18) 18 Respiratory rate source Observation Oxygen Delivery Method Room Air Blood Pressure (90/60-120/80) 140/70 H Blood Pressure Mean 93 Source Monitor Position Semi-Fowlers Blood Pressure Location Left Arm History Since Last Visit- (Skip if this is Patient's initial visit) Have you changed medications since your No last visit? Any new allergies or adverse reactions No Had a fall/change in ADL's that may No increase risk of falls Signs or symptoms of abuse and/or No neglect since last visit Have you been in the hospital since your No last visit? Has dressing in place as prescribed Yes Has compression in place as prescribed N/A Has offloadiing in place as prescribed N/A Experienced any changes in pain level or No management Left Footwear Regular Shoe Right Footwear Regular Shoe Pain Scale: 0-10 Numeric Is Patient Pain Free? Yes WC - Nurse 1 - General Ulcer Measurement Start: 08/10/23 13:31 Freq: Status: Active Protocol: Activity Type Activity Date Activity User E-sign Co-sign Detail Recorded Client Recorded Date Recorded By Document 08/10/23 13:31 [id number] 08/10/23 13:34 KW 08/10/23 13:31 Wound Center Nurse 1 #2 RT ANT LEG -Current Size (cm) - Length 1.3 -Current Size (cm) - Width 0.6 -Current Size (cm) - Depth 0.1 -Total Square Cm 0.78 -Date of Last Picture (Recall this 08/10/23 field) -Exudate Amt Small -Exudate Type Serosanguineous -Wound Margin Distinct, Outline Attached -Granulation Amt Large (67-100%) -Granulation Quality Red -Texture (Jannet-wound Skin Appearance) Assessed -Moisture (Jannet-wound Skin Appearance) Assessed -Color (Jannet-wound Skin Appearance) Assessed -Temperature (Jannet-wound Skin No Abnormality Appearance) (Pt Warm) -Tenderness on Palpation (Jannet-wound No Skin Appearance) -Ulcer Cleansing Rinsed/ Irrigated with Saline -Foul Odor after Cleansing No -Anesthetic Used 5% Lidocaine Gel Right Calf (cm) 34 Right Ankle (cm) 20.2 WC - Nurse 2 - General Ulcer CM Notes Start: 08/10/23 13:31 Freq: Status: Active Protocol: Activity Type Activity Date Activity User E-sign Co-sign Detail Recorded Client Recorded Date Recorded By Document 08/10/23 13:50 DS [id number] 08/10/23 13:53 DS Edit Result 08/10/23 13:50 DS (1) 08/10/23 13:56 DS (1) #3 right forearm - Time => 13:55 - Correct Patient => Yes - Correct Side, Site, Position => Yes - Correct Procedure => Yes - Procedure Performed => Yes - Type of Procedure => Debridement - Clinical Debridement => Subcutaneous - Tissue Removed => Subcutaneous - Post Debridement (cm) - Length => 0.4 - Post Debridement (cm) - Width => 0.5 - Post Debridement (cm) - Depth => 0.1 - Total Square (Post) (cm) => 0.20 - Area of Debridement (cm) - Length => 0.4 - Area of Debridement (cm) - Width => 0.5 - Total Square (Area) (cm) => 0.20 - Tunneling => No - Undermining/Tunneling => No - Circular Undermining => No - Wound/Ulcer Outcome => Not Healed - Ulcer Cleansing => Rinsed/Irrigated => with Saline - Bleeding Controlled with => Pressure - Treatment Response => Procedure => Tolerated Well - Debridement - Subq, 20sq cm => No 08/10/23 13:50 Wound Center Nurse 2 #3 right forearm -Time 13:55 -Correct Patient Yes -Correct Side, Site, Position Yes -Correct Procedure Yes -Procedure Performed Yes -Type of Procedure Debridement -Clinical Debridement Subcutaneous -Tissue Removed Subcutaneous -Post Debridement (cm) - Length 0.4 -Post Debridement (cm) - Width 0.5 -Post Debridement (cm) - Depth 0.1 -Total Square (Post) (cm) 0.20 -Area of Debridement (cm) - Length 0.4 -Area of Debridement (cm) - Width 0.5 -Total Square (Area) (cm) 0.20 -Tunneling No -Undermining/Tunneling No -Circular Undermining No -Wound/Ulcer Outcome Not Healed -Ulcer Cleansing Rinsed/ Irrigated with Saline -Bleeding Controlled with Pressure -Treatment Response Procedure Tolerated Well -Debridement - Subq, 1st 20sq cm No #2 RT ANT LEG -Time 13:50 -Correct Patient Yes -Correct Side, Site, Position Yes -Correct Procedure Yes -Procedure Performed Yes -Type of Procedure Debridement -Clinical Debridement Subcutaneous -Tissue Removed Subcutaneous -Post Debridement (cm) - Length 1.3 -Post Debridement (cm) - Width 0.5 -Post Debridement (cm) - Depth 0.1 -Total Square (Post) (cm) 0.65 -Area of Debridement (cm) - Length 1.3 -Area of Debridement (cm) - Width 0.5 -Total Square (Area) (cm) 0.65 -Tunneling No -Undermining/Tunneling No -Circular Undermining No -Wound/Ulcer Outcome Not Healed -Ulcer Cleansing Rinsed/ Irrigated with Saline -Bleeding Controlled with Pressure -Treatment Response Procedure Tolerated Well -Debridement - Subq, 1st 20sq cm Yes Pain Scale: 0-10 Numeric Is Patient Pain Free? Yes WC - Nurse 3 - General Ulcer D/C NN Start: 08/10/23 13:31 Freq: Status: Active Protocol: Activity Type Activity Date Activity User E-sign Co-sign Detail Recorded Client Recorded Date Recorded By Document 08/10/23 13:58 [place] [id number] 08/10/23 14:00 DS 08/10/23 13:58 Wound Care Center Nurse 3 #3 right forearm -Ulcer Cleansing Rinsed/ Irrigated with Saline -Other Dressing hydrogel, secure wit coban -Primary Dressing Covered/Secured with Dry Gauze #2 RT ANT LEG -Ulcer Cleansing Rinsed/ Irrigated with Saline -Primary Dressing Applied Mepilex Border -Other Dressing hydrogel -Mepilex Border 1 Pain Scale: 0-10 Numeric Is Patient Pain Free? Yes WC - Visit Discharge Discharge Condition Stable Ambulatory Status Ambulatory Transportation Private Auto Medication Reconcilliation completed & Yes provided to patient/care provider Additional Wound Wound debrided: Right forearm Laterality: Right Type of Debridement: Excisional debridement Anesthesia Used: 5% Lidocaine Gel Depth: Down to and including healthy tissue and in the subcutaneous layer Percentage of wound debrided: 100 Instrument Used: Forceps and - (Cuticle scissors) Tissue Removed: Devitalized skin flap Severity: Fat Layer Exposed Amount of bleeding with debridement: Mild Bleeding Controlled with: Compression and gauze Patient tolerated procedure: Patient tolerated procedure well Assessment/Plan Assessment/Plan (1) Traumatic open wound of right lower leg: CODE(S): S81.801A - Unspecified open wound, right lower leg, initial encounter QUALIFIERS: Encounter type: subsequent encounter Qualified Code(s): S81.801D - Unspecified open wound, right lower leg, subsequent encounter (2) Wound, open, arm, forearm: CODE(S): S51.809A - Unspecified open wound of unspecified forearm, initial encounter QUALIFIERS: Encounter type: initial encounter Laterality: right Qualified Code(s): S51.801A - Unspecified open wound of right forearm, initial encounter (3) Wound infection: CODE(S): T14.8XXA - Other injury of unspecified body region, initial encounter; L08.9 - Local infection of the skin and subcutaneous tissue, unspecified (4) Fibromyalgia: CODE(S): M79.7 - Fibromyalgia (5) Scleroderma: CODE(S): M34.9 - Systemic sclerosis, unspecified (6) Rheumatoid arthritis: CODE(S): M06.9 - Rheumatoid arthritis, unspecified (7) History of deep vein thrombosis: CODE(S): Z86.718 - Personal history of other venous thrombosis and embolism (8) Neuropathy: CODE(S): G62.9 - Polyneuropathy, unspecified (9) History of opioid abuse: CODE(S): F11.11 - Opioid abuse, in remission (10) Vertigo: CODE(S): R42 - Dizziness and giddiness (11) Rheumatoid arthritis: CODE(S): M06.9 - Rheumatoid arthritis, unspecified (12) Hyperlipidemia: CODE(S): E78.5 - Hyperlipidemia, unspecified (13) History of hernia repair: CODE(S): Z98.890 - Other specified postprocedural states; Z87.19 - Personal history of other diseases of the digestive system (14) History of hysterectomy: CODE(S): Z90.710 - Acquired absence of both cervix and uterus (15) History of appendectomy: CODE(S): Z90.49 - Acquired absence of other specified parts of digestive tract PLAN: Plan This is a 68-year-old female who presented with a nonhealing laceration of the right pretibial surface. There was associated necrotic tissue and bioburden. The patient had recently been treated with oral antibiotics by her primary care physician after she developed periwound cellulitis. Cellulitis resolved. The patient has been encouraged to optimize her nutritional intake. We are to implement the use of collagen hydrogel which will be applied topically by the patient on a daily basis. She has been instructed in the appropriate means of application. The patient has a new, recent traumatic wound on the right forearm, which has been debrided today. We are to also use collagen hydrogel topically at the site. She is to continue using Tubigrip's to the lower extremities to prevent swelling and edema. She is to be allowed to shower. She is to return for reevaluation in 1 week. Total time: 24 minutes
--- NOTE | 2023-08-12 10:56 | WC ---
08/10/2023 LEFT JOINER ANTERIOR LEG
[2023-08-17 08:05] VITALS: BP 123/60; PULSE 90; RESP 18; TEMP 36.7; BMI 25.6
--- NOTE | 2023-08-17 08:27 | PCM.WC.HP ---
History of Present Illness Date of Service: 08/17/23 Chief Complaint: Nonhealing laceration to the right pretibial surface; right forearm laceration History of Wound: This is a 68-year-old female who presented following a traumatic injury to her right pretibial surface approximately 2 weeks prior to presentation. While standing on a stepstool, she had a misstep, sustaining a laceration to the right pretibial surface. The laceration is failed to heal. She has been evaluated by her primary care physician, Dr. Navas, who treated the patient for a developing cellulitis, and prescribed doxycycline 100 mg p.o. twice daily for 7 days and Keflex 500 mg every 6 hours for 7 days. According to the patient, the periwound erythema and cellulitic changes improved significantly. She had recently been using antibiotic ointment topically. The patient has previously been treated at the [facility] for a traumatic hematoma of the left thigh, which required incision and drainage and evacuation and debridement of her hematoma on August 12, 2022. She remained a patient at the [facility] until the conclusion of the healing process on February 08, 2023. The patient is active and functional. The patient has a history of DVT in the lower extremity, for which she remains on Coumadin orally. [facility] Medical History Wound, open, arm, forearm Wound infection Hyperlipidemia Rheumatoid arthritis Vertigo History of opioid abuse Traumatic open wound of right lower leg Ulcer of left thigh Open wound of left thigh Restless legs Difficulty swallowing Gastric reflux Non-smoker Shortness of breath on exertion Leg cramps History of pain when walking History of echocardiogram History of edema Rheumatoid arthritis Traumatic hematoma of left thigh Long-term current use of tocilizumab longterm (current) use of anticoagulants History of deep vein thrombosis Skin necrosis History of skin cancer Neuropathy Arthritis Contusion of left thigh Contusion of left thigh, initial encounter Recurrent deep vein thrombosis of lower extremity DVT (deep venous thrombosis) High cholesterol GERD (gastroesophageal reflux disease) Hypothyroidism Rheumatic fever Scleroderma Melanoma Headaches, cluster Fibromyalgia Home Medications ?Medication ?Instructions ?Recorded ?Last Taken ?Type pregabalin 100 mg capsule (Lyrica) 75 mg PO TID pain 06/08/13 08/12/22 History oxycodone myristate 13.5 mg 9 mg PO BID pain 09/12/20 08/12/22 History capsule sprinkle extend release 12hr(DON'T CRUSH) (Xtampza ER) estradiol 1 mg tablet 1 mg PO DAILY hormones 12/23/20 08/11/22 History warfarin 2 mg tablet 2 mg PO DAILY blood thinner 12/23/20 08/05/22 History amitriptyline 25 mg tablet 25 mg PO QHS mental health 08/06/22 08/11/22 History acetaminophen 500 mg tablet 1,000 mg (2 x 500 mg) PO Q8 #0 tabs 08/07/22 08/11/22 Rx tocilizumab 200 mg/10 mL (20 200 mg IV .[id number] 08/11/22 07/16/22 History mg/mL) intravenous solution (Actemra) diazepam 5 mg tablet (Valium) 5 mg PO TID PRN spasms #20 tabs 09/05/22 Unknown Rx diazepam 5 mg tablet (Valium) 5 mg PO BID PRN spasms #14 tabs 09/17/22 Unknown Rx hydrocortisone 2.5 % topical cream 1 applic topical TID 08/17/23 Unknown History Allergy/AdvReac Type Severity Reaction Status Date / Time No Known Allergies Allergy Verified 08/12/22 10:04 Family History Sister Ovarian cancer Asthma Arthritis Cervical cancer Suicide attempt Father CAD (coronary artery disease) Skin cancer Brother CAD (coronary artery disease) Brother CAD (coronary artery disease) Mother Diabetes Other Breast cancer Cancer Surgical History History of appendectomy History of hysterectomy History of hernia repair History of hernia repair History of hysterectomy History of appendectomy Social History household members: spouse Smoking Status: Never smoker second hand exposure: No alcohol intake: never substance use type: does not use what type of physical activity do you participate in: walking frequency: 3-4 times per week lesly/jehovah's witness: None seatbelt use: always do you feel safe at home: Yes additional social history: Does Not Take Aspirin Does Not Take Ibuprofen Vital Signs Vital Signs Vital Signs: 08/17/23 08:05 Temperature 98.1 F Temperature Source Temporal Pulse Rate 90 Respiratory Rate 18 Blood Pressure 123/60 H Blood Pressure Mean 81 Blood Pressure Source Monitor Blood Pressure Position Semi-Fowlers Blood Pressure Location Left Arm Weight Weight: 140 lb Body Mass Index (BMI) 25.6 Physical Exam Const alert, oriented x3, no apparent distress, average body habitus and well nourished Constitutional Narrative: The patient's BMI is 25.6 General Appearance: cooperative, comfortable, well kempt and well developed Orientation / Consciousness: awake, oriented to person, oriented to place and oriented to time Exam Limitations: no limitations HEENT normocephalic, head/scalp atraumatic and hearing grossly normal bilaterally Head and Scalp: normal to inspection, normocephalic and atraumatic Nose: external nose normal External Ear: external ears normal Eyes PERRL and EOMs intact bilaterally General Eye: normal appearance of both eyes Neck full ROM Resp normal respiratory effort, normal air movement, no retractions, no use of accessory muscles and clear to auscultation bilaterally Effort and Inspection: able to speak in complete sentences and symmetric chest movement Cardio regular rate, regular rhythm, S1 normal heart sound and S2 normal heart sound Extremity no calf tenderness General Extremity: Negative for clubbing or cyanosis Skin Wound Narrative: There is no significant swelling or edema in the patient's lower extremities. Peripheral extremities appear warm and well-perfused. The ulceration on the right pretibial surface persists. The wound appears pink and healthy in appearance, with a small amount of bioburden. It appears smaller in size, and dimensions are documented elsewhere. There is no sign of infection or cellulitis. The right forearm laceration is now completely healed and epithelialized. A scattered erythematous rash is noted in the right calf. Neuro oriented x3, CN's II-XII intact bilaterally, moves all extremities and no focal motor deficits Sensorium / Orientation: awake, alert, oriented to person, oriented to place and oriented to time Psych Appearance: grossly normal and appropriate Attitude: calm Activity / Motor Behavior: appropriate eye contact Speech: normal speech Mood & Affect: euthymic mood Thought Process: normal thought process Thought Content: normal thought content Attention / Concentration: attention grossly intact Debridement Note Debridement Note Wound debrided: Right pretibial surface laceration Laterality: Right Type of Debridement: Excisional debridement Anesthesia Used: 5% Lidocaine Gel Depth: Down to and including healthy tissue and in the subcutaneous layer Percentage of wound debrided: 100 Instrument Used: 3mm curette and - Tissue Removed: Bioburden Severity: Fat Layer Exposed Amount of bleeding with debridement: Mild Bleeding Controlled with: Compression and gauze Patient tolerated procedure: Patient tolerated procedure well Post-Debridement Measurements and Additional Note: Post-Debridement Measurements/Treatment - Nurse 1 - General Ulcer Assessment Start: 08/10/23 13:31 Freq: Status: Active Protocol: [email or web address] Activity Type Activity Date Activity User E-sign Co-sign Detail Recorded Client Recorded Date Recorded By Document 08/10/23 13:31 [id number] 08/10/23 13:34 KW Document 08/17/23 08:05 RB wound center 08/17/23 08:11 RB 08/10/23 08/17/23 13:31 08:05 WC - Today's Visit Information Type of service Follow-up Visit Follow-up Visit (Physician/MEDICAL ADMINISTRATOR (Physician/MEDICAL ADMINISTRATOR ) ) Arrival Mode Ambulatory Ambulatory Transfer Assistance None Patient Identification Verified (Name & Yes Yes ) Patient Requires Transmission-Based No Precautions Height and Weight Body Mass Index (BMI) 25.6 25.6 BMI Classification Overweight Overweight Vital Signs Temperature (97.8 F-99.1 F) 96.1 F L 98.1 F Temperature Source Temporal Temporal Pulse Rate (60-100) 89 90 Pulse Location Monitor Monitor Respiratory Rate (12-18) 18 18 Respiratory rate source Observation Observation Oxygen Delivery Method Room Air Blood Pressure (90/60-120/80) 140/70 H 123/60 H Blood Pressure Mean 93 81 Source Monitor Monitor Position Semi-Fowlers Semi-Fowlers Blood Pressure Location Left Arm Left Arm History Since Last Visit- (Skip if this is Patient's initial visit) Have you changed medications since your No Yes last visit? Any new allergies or adverse reactions No No Had a fall/change in ADL's that may No No increase risk of falls Signs or symptoms of abuse and/or No No neglect since last visit Have you been in the hospital since your No No last visit? Has dressing in place as prescribed Yes Yes Has compression in place as prescribed N/A No Has offloadiing in place as prescribed N/A No Experienced any changes in pain level or No No management Left Footwear Regular Shoe Right Footwear Regular Shoe Pain Scale: 0-10 Numeric Is Patient Pain Free? Yes Yes R JOINER -Description Burning,Aching -Intensity 10 -Duration (hours) Acute -Pain Aggravating Factors ADL's, Debridement -Alleviating Factors/Interventions Medication -Effectiveness of Alleviating Factor/ Moderately Intervention effective WC - Nurse 1 - General Ulcer Measurement Start: 08/10/23 13:31 Freq: Status: Active Protocol: Activity Type Activity Date Activity User E-sign Co-sign Detail Recorded Client Recorded Date Recorded By Document 08/10/23 13:31 [id number] 08/10/23 13:34 KW Document 08/17/23 08:05 RB wound center 08/17/23 08:11 RB 08/10/23 08/17/23 13:31 08:05 Wound Center Nurse 1 #3 right forearm -Combined with other wound No -Current Size (cm) - Length 0.1 -Current Size (cm) - Width 0.1 -Current Size (cm) - Depth 0.1 -Total Square Cm 0.01 -Tunneling No -Undermining/Tunneling No -Circular Undermining No -Exudate Amt None Present -Wound Margin Distinct, Outline Attached -Granulation Amt Large (67-100%) -Granulation Quality [place] -Slough/Fibrin No -Necrosis Amt None Present (0 %) -Structure Exposed N/A -Texture (Jannet-wound Skin Appearance) Assessed -Moisture (Jannet-wound Skin Appearance) Assessed -Color (Jannet-wound Skin Appearance) Assessed -Temperature (Jannet-wound Skin No Abnormality Appearance) (Pt Warm) -Tenderness on Palpation (Jannet-wound No Skin Appearance) -Ulcer Cleansing Wound Cleanser -Foul Odor after Cleansing No #2 RT ANT LEG -Combined with other wound No -Current Size (cm) - Length 1.3 0.5 -Current Size (cm) - Width 0.6 0.5 -Current Size (cm) - Depth 0.1 0.1 -Total Square Cm 0.78 0.25 -Date of Last Picture (Recall this 08/10/23 field) -Photo Taken Yes -Tunneling No -Undermining/Tunneling No -Circular Undermining No -Exudate Amt Small Medium -Exudate Type Serosanguineous Serosanguineous -Wound Margin Distinct, Epibole Outline Attached -Granulation Amt Large (67-100%) Medium (34-66%) -Granulation Quality [place] -Slough/Fibrin Yes -Necrosis Amt Medium (34-66%) -Necrotic Tissue Type Adherent Slough -Structure Exposed N/A -Texture (Jannet-wound Skin Appearance) Assessed Assessed -Moisture (Jannet-wound Skin Appearance) Assessed Assessed -Color (Jannet-wound Skin Appearance) Assessed Erythema -Temperature (Jannet-wound Skin No Abnormality Appearance) (Pt Warm) -Tenderness on Palpation (Jannet-wound No No Skin Appearance) -Ulcer Cleansing Rinsed/ Wound Cleanser Irrigated with Saline -Foul Odor after Cleansing No No -Anesthetic Used 5% Lidocaine 5% Lidocaine Gel Gel Lower Limb Edema Present Yes Right Calf (cm) 34 33.5 Right Ankle (cm) 20.2 20.2 WC - Nurse 2 - General Ulcer CM Notes Start: 08/10/23 13:31 Freq: Status: Active Protocol: Activity Type Activity Date Activity User E-sign Co-sign Detail Recorded Client Recorded Date Recorded By Document 08/10/23 13:50 DS [id number] 08/10/23 13:53 DS Edit Result 08/10/23 13:50 DS (1) [id number] 08/10/23 13:56 DS Document 08/17/23 08:23 [id number] 08/17/23 08:25 DS (1) #3 right forearm - Time => 13:55 - Correct Patient => Yes - Correct Side, Site, Position => Yes - Correct Procedure => Yes - Procedure Performed => Yes - Type of Procedure => Debridement - Clinical Debridement => Subcutaneous - Tissue Removed => Subcutaneous - Post Debridement (cm) - Length => 0.4 - Post Debridement (cm) - Width => 0.5 - Post Debridement (cm) - Depth => 0.1 - Total Square (Post) (cm) => 0.20 - Area of Debridement (cm) - Length => 0.4 - Area of Debridement (cm) - Width => 0.5 - Total Square (Area) (cm) => 0.20 - Tunneling => No - Undermining/Tunneling => No - Circular Undermining => No - Wound/Ulcer Outcome => Not Healed - Ulcer Cleansing => Rinsed/Irrigated => with Saline - Bleeding Controlled with => Pressure - Treatment Response => Procedure => Tolerated Well - Debridement - Subq, 1st 20sq cm => No 08/10/23 08/17/23 13:50 08:23 Wound Center Nurse 2 #3 right forearm -Time 13:55 08:23 -Correct Patient Yes -Correct Side, Site, Position Yes -Correct Procedure Yes -Procedure Performed Yes Yes -Type of Procedure Debridement Debridement -Clinical Debridement Subcutaneous -Tissue Removed Subcutaneous -Post Debridement (cm) - Length 0.4 -Post Debridement (cm) - Width 0.5 -Post Debridement (cm) - Depth 0.1 -Total Square (Post) (cm) 0.20 -Area of Debridement (cm) - Length 0.4 -Area of Debridement (cm) - Width 0.5 -Total Square (Area) (cm) 0.20 -Tunneling No -Undermining/Tunneling No No -Circular Undermining No No -Wound/Ulcer Outcome Not Healed Healed- Epithelialized -Ulcer Cleansing Rinsed/ Irrigated with Saline -Bleeding Controlled with Pressure -Treatment Response Procedure Tolerated Well -Debridement - Subq, 1st 20sq cm No #2 RT ANT LEG -Time 13:50 08:24 -Correct Patient Yes Yes -Correct Side, Site, Position Yes Yes -Correct Procedure Yes Yes -Procedure Performed Yes Yes -Type of Procedure Debridement Debridement -Clinical Debridement Subcutaneous Subcutaneous -Tissue Removed Subcutaneous Subcutaneous -Post Debridement (cm) - Length 1.3 0.6 -Post Debridement (cm) - Width 0.5 0.6 -Post Debridement (cm) - Depth 0.1 0.1 -Total Square (Post) (cm) 0.65 0.36 -Area of Debridement (cm) - Length 1.3 0.6 -Area of Debridement (cm) - Width 0.5 0.6 -Total Square (Area) (cm) 0.65 0.36 -Tunneling No No -Undermining/Tunneling No No -Circular Undermining No No -Wound/Ulcer Outcome Not Healed Not Healed -Ulcer Cleansing Rinsed/ Rinsed/ Irrigated with Irrigated with Saline Saline -Bleeding Controlled with Pressure Pressure -Treatment Response Procedure Procedure Tolerated Well Tolerated Well -Debridement - Subq, 1st 20sq cm Yes Yes Pain Scale: 0-10 Numeric Is Patient Pain Free? Yes Yes WC - Nurse 3 - General Ulcer D/C NN Start: 08/10/23 13:31 Freq: Status: Active Protocol: Activity Type Activity Date Activity User E-sign Co-sign Detail Recorded Client Recorded Date Recorded By Document 08/10/23 13:58 DS [id number] 08/10/23 14:00 DS 08/10/23 13:58 Wound Care Center Nurse 3 #3 right forearm -Ulcer Cleansing Rinsed/ Irrigated with Saline -Other Dressing hydrogel, secure wit coban -Primary Dressing Covered/Secured with Dry Gauze #2 RT ANT LEG -Ulcer Cleansing Rinsed/ Irrigated with Saline -Primary Dressing Applied Mepilex Border -Other Dressing hydrogel -Mepilex Border 1 Pain Scale: 0-10 Numeric Is Patient Pain Free? Yes WC - Visit Discharge Discharge Condition Stable Ambulatory Status Ambulatory Transportation Private Auto Medication Reconcilliation completed & Yes provided to patient/care provider Additional Wound Tissue Removed: Devitalized skin flap Assessment/Plan Assessment/Plan (1) Traumatic open wound of right lower leg: CODE(S): S81.801A - Unspecified open wound, right lower leg, initial encounter QUALIFIERS: Encounter type: subsequent encounter Qualified Code(s): S81.801D - Unspecified open wound, right lower leg, subsequent encounter (2) Fibromyalgia: CODE(S): M79.7 - Fibromyalgia (3) Scleroderma: CODE(S): M34.9 - Systemic sclerosis, unspecified (4) Rheumatoid arthritis: CODE(S): M06.9 - Rheumatoid arthritis, unspecified (5) History of deep vein thrombosis: CODE(S): Z86.718 - Personal history of other venous thrombosis and embolism (6) Neuropathy: CODE(S): G62.9 - Polyneuropathy, unspecified (7) History of opioid abuse: CODE(S): F11.11 - Opioid abuse, in remission (8) Vertigo: CODE(S): R42 - Dizziness and giddiness (9) Rheumatoid arthritis: CODE(S): M06.9 - Rheumatoid arthritis, unspecified (10) Hyperlipidemia: CODE(S): E78.5 - Hyperlipidemia, unspecified (11) History of hernia repair: CODE(S): Z98.890 - Other specified postprocedural states; Z87.19 - Personal history of other diseases of the digestive system (12) History of hysterectomy: CODE(S): Z90.710 - Acquired absence of both cervix and uterus (13) History of appendectomy: CODE(S): Z90.49 - Acquired absence of other specified parts of digestive tract PLAN: Plan This is a 68-year-old female who presented with a nonhealing laceration of the right pretibial surface. There was associated necrotic tissue and bioburden. The patient had recently been treated with oral antibiotics by her primary care physician after she developed periwound cellulitis. The cellulitis resolved. The patient has been encouraged to optimize her nutritional intake. We are to continue the use of collagen hydrogel which will be applied topically by the patient on a daily basis. She has been instructed in the appropriate means of application. The patient has recently developed a scattered erythematous rash in the right calf, which was associated with itching and burning.. She was seen and evaluated by her primary care physician, Dr. Navas, in this regard. The patient was administered a steroid shot and prescribed a prednisone Dosepak and hydrocortisone cream for topical application. It is suspected that this erythematous rash may be due to heat rash, as the patient had been using a Tubigrip to the right lower extremity, and the weather has recently turned hot and humid. Alternatively, the rash may be a reaction to topical wound care products. As result, we are to transition from the use of the foam adhesive dressing to Adaptic and gauze. The wound itself appears to show continued progress, and appears healthy. The traumatic right forearm laceration is now healed. She has been instructed to forego the use of the Tubigrip at this time, in anticipation that this may be a causative factor in the development of a rash. She is to be allowed to shower. She is to return for reevaluation in 1 week. Total time: 25 minutes
[2023-08-24 15:11] VITALS: BP 142/61; PULSE 72; RESP 18; TEMP 35.6; BMI 25.6
--- NOTE | 2023-08-24 18:04 | PCM.WC.HP ---
History of Present Illness Date of Service: 08/24/23 Chief Complaint: Nonhealing laceration to the right pretibial surface; right forearm laceration History of Wound: This is a 68-year-old female who presented following a traumatic injury to her right pretibial surface approximately 2 weeks prior to presentation. While standing on a stepstool, she had a misstep, sustaining a laceration to the right pretibial surface. The laceration is failed to heal. She has been evaluated by her primary care physician, Dr. Navas, who treated the patient for a developing cellulitis, and prescribed doxycycline 100 mg p.o. twice daily for 7 days and Keflex 500 mg every 6 hours for 7 days. According to the patient, the periwound erythema and cellulitic changes improved significantly. She had recently been using antibiotic ointment topically. The patient has previously been treated at the [facility] for a traumatic hematoma of the left thigh, which required incision and drainage and evacuation and debridement of her hematoma on August 12, 2022. She remained a patient at the [facility] until the conclusion of the healing process on February 08, 2023. The patient is active and functional. The patient has a history of DVT in the lower extremity, for which she remains on Coumadin orally. [facility] Medical History Wound, open, arm, forearm Wound infection Hyperlipidemia Rheumatoid arthritis Vertigo History of opioid abuse Traumatic open wound of right lower leg Ulcer of left thigh Open wound of left thigh Restless legs Difficulty swallowing Gastric reflux Non-smoker Shortness of breath on exertion Leg cramps History of pain when walking History of echocardiogram History of edema Rheumatoid arthritis Traumatic hematoma of left thigh Long-term current use of tocilizumab FCI (current) use of anticoagulants History of deep vein thrombosis Skin necrosis History of skin cancer Neuropathy Arthritis Contusion of left thigh Contusion of left thigh, initial encounter Recurrent deep vein thrombosis of lower extremity DVT (deep venous thrombosis) High cholesterol GERD (gastroesophageal reflux disease) Hypothyroidism Rheumatic fever Scleroderma Melanoma Headaches, cluster Fibromyalgia Home Medications ?Medication ?Instructions ?Recorded ?Last Taken ?Type pregabalin 100 mg capsule (Lyrica) 75 mg PO TID pain 06/08/13 08/12/22 History oxycodone myristate 13.5 mg 9 mg PO BID pain 09/12/20 08/12/22 History capsule sprinkle extend release 12hr(DON'T CRUSH) (Xtampza ER) estradiol 1 mg tablet 1 mg PO DAILY hormones 12/23/20 08/11/22 History warfarin 2 mg tablet 2 mg PO DAILY blood thinner 12/23/20 08/05/22 History amitriptyline 25 mg tablet 25 mg PO QHS mental health 08/06/22 08/11/22 History acetaminophen 500 mg tablet 1,000 mg (2 x 500 mg) PO Q8 #0 tabs 08/07/22 08/11/22 Rx tocilizumab 200 mg/10 mL (20 200 mg IV .[id number] 08/11/22 07/16/22 History mg/mL) intravenous solution (Actemra) diazepam 5 mg tablet (Valium) 5 mg PO TID PRN spasms #20 tabs 09/05/22 Unknown Rx diazepam 5 mg tablet (Valium) 5 mg PO BID PRN spasms #14 tabs 09/17/22 Unknown Rx hydrocortisone 2.5 % topical cream 1 applic topical TID 08/17/23 Unknown History Allergy/AdvReac Type Severity Reaction Status Date / Time No Known Allergies Allergy Verified 08/12/22 10:04 Family History Sister Ovarian cancer Asthma Arthritis Cervical cancer Suicide attempt Father CAD (coronary artery disease) Skin cancer Brother CAD (coronary artery disease) Brother CAD (coronary artery disease) Mother Diabetes Other Breast cancer Cancer Surgical History History of appendectomy History of hysterectomy History of hernia repair History of hernia repair History of hysterectomy History of appendectomy Social History household members: spouse Smoking Status: Never smoker second hand exposure: No alcohol intake: never substance use type: does not use what type of physical activity do you participate in: walking frequency: 3-4 times per week lesly/sikhism: None seatbelt use: always do you feel safe at home: Yes additional social history: Does Not Take Aspirin Does Not Take Ibuprofen Vital Signs Vital Signs Vital Signs: 08/24/23 15:11 Temperature 96.1 F L Temperature Source Temporal Pulse Rate 72 Respiratory Rate 18 Blood Pressure 142/61 H Blood Pressure Mean 88 Blood Pressure Source Monitor Blood Pressure Position Semi-Fowlers Blood Pressure Location Left Arm Weight Weight: 140 lb Body Mass Index (BMI) 25.6 Physical Exam Const alert, oriented x3, no apparent distress, average body habitus and well nourished Constitutional Narrative: The patient's BMI is 25.6 General Appearance: cooperative, comfortable, well kempt and well developed Orientation / Consciousness: awake, oriented to person, oriented to place and oriented to time Exam Limitations: no limitations HEENT normocephalic, head/scalp atraumatic and hearing grossly normal bilaterally Head and Scalp: normal to inspection, normocephalic and atraumatic Nose: external nose normal External Ear: external ears normal Eyes PERRL and EOMs intact bilaterally General Eye: normal appearance of both eyes Neck full ROM Resp normal respiratory effort, normal air movement, no retractions, no use of accessory muscles and clear to auscultation bilaterally Effort and Inspection: able to speak in complete sentences and symmetric chest movement Cardio regular rate, regular rhythm, S1 normal heart sound and S2 normal heart sound Extremity no calf tenderness General Extremity: Negative for clubbing or cyanosis Skin Wound Narrative: There is no significant swelling or edema in the patient's lower extremities. Peripheral extremities appear warm and well-perfused. The ulceration on the right pretibial surface persists, but is smaller in size. Dimensions are documented elsewhere. The wound appears pink and healthy in appearance, with a small amount of bioburden. There is no sign of infection or cellulitis. The right forearm laceration remained completely healed and epithelialized. The erythematous rash in the right calf, noted 1 week ago, has now resolved. Neuro oriented x3, CN's II-XII intact bilaterally, moves all extremities and no focal motor deficits Sensorium / Orientation: awake, alert, oriented to person, oriented to place and oriented to time Psych Appearance: grossly normal and appropriate Attitude: calm Activity / Motor Behavior: appropriate eye contact Speech: normal speech Mood & Affect: euthymic mood Thought Process: normal thought process Thought Content: normal thought content Attention / Concentration: attention grossly intact Debridement Note Debridement Note Wound debrided: Right pretibial surface laceration Laterality: Right Type of Debridement: Excisional debridement Anesthesia Used: 5% Lidocaine Gel Depth: Down to and including healthy tissue and in the subcutaneous layer Percentage of wound debrided: 100 Instrument Used: 3mm curette and - Tissue Removed: Bioburden Severity: Fat Layer Exposed Amount of bleeding with debridement: Mild Bleeding Controlled with: Compression and gauze Patient tolerated procedure: Patient tolerated procedure well Post-Debridement Measurements and Additional Note: Post-Debridement Measurements/Treatment WC - Nurse 1 - General Ulcer Assessment Start: 08/10/23 13:31 Freq: Status: Active Protocol: LILIYA Activity Type Activity Date Activity User E-sign Co-sign Detail Recorded Client Recorded Date Recorded By Document 08/10/23 13:31 KW [id number] 08/10/23 13:34 KW Document 08/17/23 08:05 RB wound center 08/17/23 08:11 RB Document 08/24/23 15:11 RB wound cnter 08/24/23 15:13 RB 08/10/23 08/17/23 08/24/23 13:31 08:05 15:11 WC - Today's Visit Information Type of service Follow-up Visit Follow-up Visit Follow-up Visit (Physician/GIS TECHNICIAN (Physician/GIS TECHNICIAN (Physician/GIS TECHNICIAN ) ) ) Arrival Mode Ambulatory Ambulatory Ambulatory Transfer Assistance None None Patient Identification Verified (Name & Yes Yes Yes ) Patient Requires Transmission-Based No No Precautions Height and Weight Body Mass Index (BMI) 25.6 25.6 25.6 BMI Classification Overweight Overweight Overweight Vital Signs Temperature (97.8 F-99.1 F) 96.1 F L 98.1 F 96.1 F L Temperature Source Temporal Temporal Temporal Pulse Rate (60-100) 89 90 72 Pulse Location Monitor Monitor Monitor Respiratory Rate (12-18) 18 18 18 Respiratory rate source Observation Observation Observation Oxygen Delivery Method Room Air Blood Pressure (90/60-120/80) 140/70 H 123/60 H 142/61 H Blood Pressure Mean 93 81 88 Source Monitor Monitor Monitor Position Semi-Fowlers Semi-Fowlers Semi-Fowlers Blood Pressure Location Left Arm Left Arm Left Arm History Since Last Visit- (Skip if this is Patient's initial visit) Have you changed medications since your No Yes No last visit? Any new allergies or adverse reactions No No No Had a fall/change in ADL's that may No No No increase risk of falls Signs or symptoms of abuse and/or No No No neglect since last visit Have you been in the hospital since your No No No last visit? Has dressing in place as prescribed Yes Yes Yes Has compression in place as prescribed N/A No No Has offloadiing in place as prescribed N/A No No Experienced any changes in pain level or No No No management Left Footwear Regular Shoe Right Footwear Regular Shoe Pain Scale: 0-10 Numeric Is Patient Pain Free? Yes Yes Yes R JOINER -Description Burning,Aching -Intensity 10 -Duration (hours) Acute -Pain Aggravating Factors ADL's, Debridement -Alleviating Factors/Interventions Medication -Effectiveness of Alleviating Factor/ Moderately Intervention effective WC - Nurse 1 - General Ulcer Measurement Start: 08/10/23 13:31 Freq: Status: Active Protocol: Activity Type Activity Date Activity User E-sign Co-sign Detail Recorded Client Recorded Date Recorded By Document 08/10/23 13:31 KW [id number] 08/10/23 13:34 KW Document 08/17/23 08:05 RB wound center 08/17/23 08:11 RB Document 08/24/23 15:11 RB wound cnter 08/24/23 15:13 RB 08/10/23 08/17/23 08/24/23 13:31 08:05 15:11 Wound Center Nurse 1 #3 right forearm -Combined with other wound No -Current Size (cm) - Length 0.1 -Current Size (cm) - Width 0.1 -Current Size (cm) - Depth 0.1 -Total Square Cm 0.01 -Tunneling No -Undermining/Tunneling No -Circular Undermining No -Exudate Amt None Present -Wound Margin Distinct, Outline Attached -Granulation Amt Large (67-100%) -Granulation Quality [place] -Slough/Fibrin No -Necrosis Amt None Present (0 %) -Structure Exposed N/A -Texture (Jannet-wound Skin Appearance) Assessed -Moisture (Jannet-wound Skin Appearance) Assessed -Color (Jannet-wound Skin Appearance) Assessed -Temperature (Jannet-wound Skin No Abnormality Appearance) (Pt Warm) -Tenderness on Palpation (Jannet-wound No Skin Appearance) -Ulcer Cleansing Wound Cleanser -Foul Odor after Cleansing No #2 RT ANT LEG -Combined with other wound No No -Current Size (cm) - Length 1.3 0.5 0.1 -Current Size (cm) - Width 0.6 0.5 0.1 -Current Size (cm) - Depth 0.1 0.1 0.1 -Total Square Cm 0.78 0.25 0.01 -Date of Last Picture (Recall this 08/10/23 field) -Photo Taken Yes -Tunneling No No -Undermining/Tunneling No No -Circular Undermining No No -Exudate Amt Small Medium Medium -Exudate Type Serosanguineous Serosanguineous Serosanguineous -Wound Margin Distinct, Epibole Distinct, Outline Outline Attached Attached -Granulation Amt Large (67-100%) Medium (34-66%) Medium (34-66%) -Granulation Quality Red [place] -Slough/Fibrin Yes Yes -Necrosis Amt Medium (34-66%) Medium (34-66%) -Necrotic Tissue Type Adherent Slough Adherent Slough -Structure Exposed N/A N/A -Texture (Jannet-wound Skin Appearance) Assessed Assessed Scarring -Moisture (Jannet-wound Skin Appearance) Assessed Assessed Assessed -Color (Jannet-wound Skin Appearance) Assessed Erythema Assessed -Temperature (Jannet-wound Skin No Abnormality No Abnormality Appearance) (Pt Warm) (Pt Warm) -Tenderness on Palpation (Jannet-wound No No No Skin Appearance) -Ulcer Cleansing Rinsed/ Wound Cleanser Rinsed/ Irrigated with Irrigated with Saline Saline -Foul Odor after Cleansing No No No -Anesthetic Used 5% Lidocaine 5% Lidocaine 5% Lidocaine Gel Gel Gel Lower Limb Edema Present Yes Yes Right Calf (cm) 34 33.5 33.5 Right Ankle (cm) 20.2 20.2 20 WC - Nurse 2 - General Ulcer CM Notes Start: 08/10/23 13:31 Freq: Status: Active Protocol: Activity Type Activity Date Activity User E-sign Co-sign Detail Recorded Client Recorded Date Recorded By Document 08/10/23 13:50 DS [id number] 08/10/23 13:53 DS Edit Result 08/10/23 13:50 DS (1) [id number] 08/10/23 13:56 DS Document 08/17/23 08:23 DS [id number] 08/17/23 08:25 DS Document 08/24/23 15:25 DS [id number] 08/24/23 15:28 DS (1) #3 right forearm - Time => 13:55 - Correct Patient => Yes - Correct Side, Site, Position => Yes - Correct Procedure => Yes - Procedure Performed => Yes - Type of Procedure => Debridement - Clinical Debridement => Subcutaneous - Tissue Removed => Subcutaneous - Post Debridement (cm) - Length => 0.4 - Post Debridement (cm) - Width => 0.5 - Post Debridement (cm) - Depth => 0.1 - Total Square (Post) (cm) => 0.20 - Area of Debridement (cm) - Length => 0.4 - Area of Debridement (cm) - Width => 0.5 - Total Square (Area) (cm) => 0.20 - Tunneling => No - Undermining/Tunneling => No - Circular Undermining => No - Wound/Ulcer Outcome => Not Healed - Ulcer Cleansing => Rinsed/Irrigated => with Saline - Bleeding Controlled with => Pressure - Treatment Response => Procedure => Tolerated Well - Debridement - Subq, 1st 20sq cm => No 08/10/23 08/17/23 08/24/23 13:50 08:23 15:25 Wound Center Nurse 2 #3 right forearm -Time 13:55 08:23 -Correct Patient Yes -Correct Side, Site, Position Yes -Correct Procedure Yes -Procedure Performed Yes Yes -Type of Procedure Debridement Debridement -Clinical Debridement Subcutaneous -Tissue Removed Subcutaneous -Post Debridement (cm) - Length 0.4 -Post Debridement (cm) - Width 0.5 -Post Debridement (cm) - Depth 0.1 -Total Square (Post) (cm) 0.20 -Area of Debridement (cm) - Length 0.4 -Area of Debridement (cm) - Width 0.5 -Total Square (Area) (cm) 0.20 -Tunneling No -Undermining/Tunneling No No -Circular Undermining No No -Wound/Ulcer Outcome Not Healed Healed- Epithelialized -Ulcer Cleansing Rinsed/ Irrigated with Saline -Bleeding Controlled with Pressure -Treatment Response Procedure Tolerated Well -Debridement - Subq, 1st 20sq cm No #2 RT ANT LEG -Time 13:50 08:24 15:25 -Correct Patient Yes Yes Yes -Correct Side, Site, Position Yes Yes Yes -Correct Procedure Yes Yes Yes -Procedure Performed Yes Yes Yes -Type of Procedure Debridement Debridement Debridement -Clinical Debridement Subcutaneous Subcutaneous Subcutaneous -Tissue Removed Subcutaneous Subcutaneous Subcutaneous -Post Debridement (cm) - Length 1.3 0.6 0.4 -Post Debridement (cm) - Width 0.5 0.6 0.3 -Post Debridement (cm) - Depth 0.1 0.1 0.1 -Total Square (Post) (cm) 0.65 0.36 0.12 -Area of Debridement (cm) - Length 1.3 0.6 0.4 -Area of Debridement (cm) - Width 0.5 0.6 0.3 -Total Square (Area) (cm) 0.65 0.36 0.12 -Tunneling No No No -Undermining/Tunneling No No No -Circular Undermining No No -Wound/Ulcer Outcome Not Healed Not Healed Not Healed -Ulcer Cleansing Rinsed/ Rinsed/ Rinsed/ Irrigated with Irrigated with Irrigated with Saline Saline Saline -Bleeding Controlled with Pressure Pressure Pressure -Treatment Response Procedure Procedure Procedure Tolerated Well Tolerated Well Tolerated Well -Debridement - Subq, 1st 20sq cm Yes Yes Yes Pain Scale: 0-10 Numeric Is Patient Pain Free? Yes Yes Yes - Nurse 3 - General Ulcer D/C NN Start: 08/10/23 13:31 Freq: Status: Active Protocol: Activity Type Activity Date Activity User E-sign Co-sign Detail Recorded Client Recorded Date Recorded By Document 08/10/23 13:58 DS [id number] 08/10/23 14:00 DS Document 08/24/23 15:36 RB wound cnter 08/24/23 15:36 RB 08/10/23 08/24/23 13:58 15:36 Wound Care Center Nurse 3 #3 right forearm -Ulcer Cleansing Rinsed/ Irrigated with Saline -Other Dressing hydrogel, secure wit coban -Primary Dressing Covered/Secured with Dry Gauze #2 RT ANT LEG -Ulcer Cleansing Rinsed/ Rinsed/ Irrigated with Irrigated with Saline Saline -Primary Dressing Applied Mepilex Border NonAdherent Contact Layer -Other Dressing hydrogel hydrogel -Primary Dressing Covered/Secured with Dry Gauze, Secured with Tape -Mepilex Border 1 Treatment Response Procedure Tolerated Well Pain Scale: 0-10 Numeric Is Patient Pain Free? Yes Yes WC - Visit Discharge Discharge Condition Stable Stable Ambulatory Status Ambulatory Ambulatory Transportation Private Auto Private Auto Medication Reconcilliation completed & Yes No provided to patient/care provider Clinical Summary of Care Provided Yes Additional Wound Tissue Removed: Devitalized skin flap Assessment/Plan Assessment/Plan (1) Traumatic open wound of right lower leg: CODE(S): S81.801A - Unspecified open wound, right lower leg, initial encounter QUALIFIERS: Encounter type: subsequent encounter Qualified Code(s): S81.801D - Unspecified open wound, right lower leg, subsequent encounter (2) Fibromyalgia: CODE(S): M79.7 - Fibromyalgia (3) Scleroderma: CODE(S): M34.9 - Systemic sclerosis, unspecified (4) Rheumatoid arthritis: CODE(S): M06.9 - Rheumatoid arthritis, unspecified (5) History of deep vein thrombosis: CODE(S): Z86.718 - Personal history of other venous thrombosis and embolism (6) Neuropathy: CODE(S): G62.9 - Polyneuropathy, unspecified (7) History of opioid abuse: CODE(S): F11.11 - Opioid abuse, in remission (8) Vertigo: CODE(S): R42 - Dizziness and giddiness (9) Rheumatoid arthritis: CODE(S): M06.9 - Rheumatoid arthritis, unspecified (10) Hyperlipidemia: CODE(S): E78.5 - Hyperlipidemia, unspecified (11) History of hernia repair: CODE(S): Z98.890 - Other specified postprocedural states; Z87.19 - Personal history of other diseases of the digestive system (12) History of hysterectomy: CODE(S): Z90.710 - Acquired absence of both cervix and uterus (13) History of appendectomy: CODE(S): Z90.49 - Acquired absence of other specified parts of digestive tract PLAN: Plan This is a 68-year-old female who presented with a nonhealing laceration of the right pretibial surface. There was associated necrotic tissue and bioburden. The patient had recently been treated with oral antibiotics by her primary care physician after she developed periwound cellulitis. The cellulitis resolved. The patient has been encouraged to optimize her nutritional intake. We are to continue the use of collagen hydrogel which will be applied topically by the patient on a daily basis. She has been instructed in the appropriate means of application. She will also continue to use Adaptic and gauze. The wound itself appears to show continued progress, and is nearly healed. The traumatic right forearm laceration remain healed. The patient is to be allowed to shower. She is to return for reevaluation in 2 weeks, at which time it is anticipated that she may be healed. Total time: 22 minutes
== END 2023-08-27 23:59 | disposition home or self-care (01) ==
LOC: WC 15:00
PROVIDERS: PCP Family Medicine Geriatric Medicine; Referring Provider Family Medicine Geriatric Medicine; Visit Provider Surgery
DX: S81.811A Laceration without foreign body, right lower leg, initial encounter (principal); M34.9 Systemic sclerosis, unspecified; M06.9 Rheumatoid arthritis, unspecified; F11.11 Opioid abuse, in remission; M79.7 Fibromyalgia; E78.00 Pure hypercholesterolemia, unspecified; Z79.01 Long term (current) use of anticoagulants; W08.XXXA Fall from other furniture, initial encounter; Z86.718 Personal history of other venous thrombosis and embolism; Z79.899 Other long term (current) drug therapy
CPT/HCPCS: 11042

== ENCOUNTER → 2023-12-29 | Outpatient (CLI) | payer MEDICARE, OTHER, SELFPAY ==
[2023-12-29 13:42] LABS: Absolute Lymphocyte Count 1.41 X10^3/uL (0.83-4.51); Absolute Neutrophil Count 1.8 X10^3/uL (2.0-7.7); Basophil# 0.02 X10^3/uL; Basophil% 0.5 % (0-1); Eosinophil# 0.27 X10^3/uL; Eosinophils% 6.8 % (0-5); Hematocrit 36.6 % (37-47); Hemoglobin 11.7 g/dL (12.0-15.0); Lymphocyte # 1.41 X10^3/ul (0.83-4.51); Lymphocyte % 35.6 % (19-41); Mean Corpuscular Hgb 28.9 pg (27.0-32.0); Mean Corpuscular Volume 90.4 fL (81-99); Monocyte# 0.47 X10^3/uL; Monocyte% 11.9 % (0-10); NRBC Flagged by Analyzer 0 % (0-5); Neutrophil # 1.78 X10^3/uL (2.7-7.7); Neutrophil % 44.9 % (47-70); Platelet Count 235 K/mm3 (150-450); RBC Distribution Width CV 12.7 % (11.6-14.6); RBC Distribution Width SD 42.2 fl (35.1-43.9); Red Blood Count 4.05 M/mm3 (4.2-5.4)
[2023-12-29 14:20] LABS: Vitamin D,25 Hydroxy 20.9 ng/mL
[2023-12-29 14:27] LABS: ALB/GLOB Ratio 1.2 RATIO (0.9-2.4); AST(SGOT) 26 U/L (15-37); Alanine Aminotransfer ALT/SGPT 19 U/L (13-56); Albumin, Serum 3.4 g/dL (3.2-5.0); Alkaline Phosphatase 78 U/L (45-117); Anion Gap 6 (5-15); BUN 12 mg/dL (7-18); BUN/Creat Ratio 14.1 RATIO (10-20); Calcium,Total 8.6 mg/dL (8.5-10.1); Chloride 110 mmol/L (98-107); Creatinine, Serum 0.85 mg/dL (0.55-1.02); EST Glomerular Filtration Rate 70 mL/min (>60); Est Glom Filt Rate - Afr Amer 84 mL/min (>60); Globulin 2.9 g/dL (2.2-4.2); Glucose 125 mg/dL (74-106); Potassium 3.6 mmol/L (3.5-5.1); Protein, Total 6.3 g/dL (6.4-8.2); Sodium Level 141 mmol/L (136-145); Thyroid Stim Hormone (TSH) 0.298 uIU/mL (0.358-3.740)
== END | disposition home or self-care (01) ==
LOC: POLAB3 13:28
PROVIDERS: PCP Family Medicine Geriatric Medicine; Visit Provider Family Medicine Geriatric Medicine
DX: E55.9 Vitamin D deficiency, unspecified (principal); R53.83 Other fatigue
CPT/HCPCS: 36415; 80053; 82306; 84443; 85025

== ENCOUNTER → 2024-01-11 | Outpatient (CLI) | payer MEDICARE, OTHER, SELFPAY ==
[2024-01-11 11:53] LABS: Amphetamine Urine VISTA NEGATIVE (<1000 ng/mL); Barbiturate Urine VISTA NEGATIVE (< 200 ng/mL); Benzodiazepine Urine VISTA NEGATIVE (< 200 ng/mL); Cocaine Urine VISTA NEGATIVE (< 300 ng/mL); Ecstacy Urine VISTA NEGATIVE (< 500 ng/mL); Methadone Urine VISTA NEGATIVE (< 300 ng/mL); PCP Urine VISTA NEGATIVE (< 25 ng/mL); THC Urine VISTA NEGATIVE (< 50 ng/mL); Vista UDS pH Range 6
== END | disposition home or self-care (01) ==
PROVIDERS: PCP Family Medicine Geriatric Medicine; Referring Provider Anesthesiology Pain Medicine; Visit Provider Anesthesiology Pain Medicine
DX: F11.20 Opioid dependence, uncomplicated (principal)
CPT/HCPCS: 80307

== ENCOUNTER → 2024-06-01 | Outpatient (CLI) | payer MEDICARE, OTHER, SELFPAY ==
--- NOTE | 2024-06-01 15:08 | VDLE_ITS ---
Reason For Study Reason For Study: Left leg hematoma RIGHT LEFT CFV is compressible, spontaneous, phasic, competent GSV is normal. and demonstrates normal augmentation. CFV is compressible, spontaneous, phasic, competent, Procedure and demonstrates normal augmentation. This is a venous duplex using B-mode, color flow and FV is compressible, spontaneous, phasic, competent spectral Doppler. and demonstrates normal augmentation. Exam performed in department. POP V is compressible, spontaneous, phasic, competent A preliminary report was called and/or faxed to and demonstrates normal augmentation. Yosef. T/P Trunk is compressible. PTV is compressible. LT PerV is compressible. Nonvascularized structure is noted at the left proximal andersen that measures 0.47 x 1.68 x 1.94 cm. VL/Venous Duplex US, Unilateral Interpretation Summary Deep veins of the left lower extremity are patent and compressible segmentally. There is no evidence of left lower extremity deep vein thrombosis. Valvular competence appears intact within the p roximal deep venous system on the left . The left great saphenous vein appears patent and compressible segmentally. A no n-vascular, hypoechoic structure is noted on the left pre-tibial surface, measuring 0.47 cm x 1.68 cm x 1.94 cm. This is consistent with a seroma or hematoma. Clinical correlation is advised. The right common femoral vein is patent and co mpressible . Ordering Physician: Wilton Navas Chi Referring Physician: Wilton Navas Chi Performed By: Merline Parra RVT
== END | disposition home or self-care (01) ==
LOC: CVS 15:06
PROVIDERS: PCP Family Medicine Geriatric Medicine; Referring Provider Family Medicine Geriatric Medicine; Visit Provider Family Medicine Geriatric Medicine
DX: M79.605 Pain in left leg (principal)
CPT/HCPCS: 93971

== ENCOUNTER → 2024-06-10 | Outpatient (CLI) | payer OTHER, MEDICARE, SELFPAY ==
--- NOTE | 2024-06-10 08:08 | RAD_ITS ---
PROCEDURE: Left tibia and fibula radiographs REASON FOR EXAM: Pain, hematoma TECHNIQUE: Two views of the left tibia COMPARISON: None. FINDINGS: See impression RAD/Tibia & Fibula 2 Views IMPRESSION: Negative for fracture or malalignment. No aggressive osseous lesion. No signi ficant soft tissue abnormality. No radiopaque foreign body. Reading Location: [facility]
== END | disposition home or self-care (01) ==
LOC: RAD 08:03
PROVIDERS: PCP Family Medicine Geriatric Medicine; Referring Provider Surgery Plastic and Reconstructive Surgery; Visit Provider Surgery Plastic and Reconstructive Surgery
DX: S80.12XA Contusion of left lower leg, initial encounter (principal); X58.XXXA Exposure to other specified factors, initial encounter
CPT/HCPCS: 73590

== ENCOUNTER 2024-06-12 07:50 | Outpatient (RCR) | payer OTHER, SELFPAY | END 2024-06-26 23:59 | disposition home or self-care (01) | LOC: WC 07:50 | PROVIDERS: PCP Family Medicine Geriatric Medicine; Referring Provider Surgery Plastic and Reconstructive Surgery; Visit Provider Surgery Plastic and Reconstructive Surgery | DX: Z09 Encounter for follow-up examination after completed treatment for conditions other than malignant neoplasm (principal) ==

== ENCOUNTER → 2024-08-02 | Outpatient (CLI) | payer MEDICARE, OTHER, SELFPAY ==
[2024-08-02 15:57] LABS: Absolute Lymphocyte Count 1.92 X10^3/uL (0.83-4.51); Absolute Neutrophil Count 1.6 X10^3/uL (2.0-7.7); Basophil# 0.06 X10^3/uL; Basophil% 1.3 % (0-1); Eosinophil# 0.48 X10^3/uL; Eosinophils% 10.5 % (0-5); Hemoglobin 11.3 g/dL (12.0-15.0); Lymphocyte # 1.92 X10^3/ul (0.83-4.51); Lymphocyte % 42.2 % (19-41); Mean Corp Hgb Conc 33.2 g/dL (32-36); Mean Corpuscular Hgb 28.5 pg (27.0-32.0); Mean Corpuscular Volume 85.9 fL (81-99); Mean Platelet Vol. 9.3 fl (6.2-12.0); Monocyte# 0.48 X10^3/uL; Monocyte% 10.5 % (0-10); NRBC Flagged by Analyzer 0 % (0-5); Neutrophil % 35.3 % (47-70); POSITIVE MORPHOLOGY YES; Platelet Count 250 K/mm3 (150-450); RBC Distribution Width CV 13.5 % (11.6-14.6); RBC Distribution Width SD 42.2 fl (35.1-43.9); Red Blood Count 3.96 M/mm3 (4.2-5.4); White Blood Count 4.6 K/mm3 (4.4-11.0)
[2024-08-02 16:18] LABS: Differential Indicated SCAN CRITERIA MET
[2024-08-02 16:47] LABS: ALB/GLOB Ratio 1.8 RATIO (0.9-2.4); AST(SGOT) 31 U/L (<=31); Alanine Aminotransfer ALT/SGPT 16 U/L (<=34); Albumin, Serum 3.9 g/dL (3.4-4.8); Alkaline Phosphatase 77 U/L (35-104); Anion Gap 8 (5-15); BUN 10 mg/dL (4-19); Calcium,Total 8.5 mg/dL (7.6-11.0); Carbon Dioxide 28.1 mmol/L (21.0-32.0); Chloride 104 mmol/L (98-108); Creatinine, Serum 0.79 mg/dL (0.70-1.20); EST Glomerular Filtration Rate 80 (>60); Globulin 2.1 g/dL (2.2-4.2); Glucose 96 mg/dL (70-99); Potassium 3.7 mmol/L (3.3-5.1); Sodium Level 140 mmol/L (133-145); Total Bilirubin 0.34 mg/dL (0.00-1.30)
[2024-08-02 16:54] LABS: Thyroid Stim Hormone (TSH) 0.095 uIU/mL (0.300-4.200); Vitamin D,25 Hydroxy 19.3 ng/mL (30-100)
== END | disposition home or self-care (01) ==
LOC: LAB 15:24
PROVIDERS: PCP Family Medicine Geriatric Medicine; Referring Provider Family Medicine Geriatric Medicine; Visit Provider Family Medicine Geriatric Medicine
DX: E55.9 Vitamin D deficiency, unspecified (principal); R53.83 Other fatigue
CPT/HCPCS: 36415; 80053; 82306; 84443; 85025

== ENCOUNTER → 2024-08-24 | Outpatient (CLI) | payer MEDICARE, OTHER, SELFPAY ==
--- NOTE | 2024-08-24 14:26 | BI_ITS ---
EXAM: SCRN MAMM (CAD)W/LORENA BILAT DATE: 08/24/2024 CLINICAL HISTORY: F, Age 69 y/o , SCREENING History of sister with breast cancer. BREAST CANCER RISK ASSESSMENT: Not assessed. TECHNIQUE: Bilateral screening digital breast tomosynthesis with 2D and 3D images. Computer aided detection. COMPARISON: Prior exam(s) dated July 30, 2022.. FINDINGS: TISSUE DENSITY: The breast tissue is heterogenously dense, which may obscure small masses. Bilateral Breast Mammographic Findings: No significant masses, calcifications or other abnormalities are identified. No suspicious masses, areas of developing architectural distortion, or suspicious calcifications. There has been no significant interval change. BI/SCRN MAMM (CAD)W/LORENA BILAT IMPRESSION: OVERALL FINAL ASSESSMENT: BIRADS 1 NEGATIVE RECOMMENDATION: Routine annual follow-up in 1 Year A letter with findings and recommendations will be mailed to the patient. Reading Location: [place] [id number]
[2024-08-24 15:51] LABS: Absolute Neutrophil Count 1.1 X10^3/uL (2.0-7.7); Basophil# 0.04 X10^3/uL; Basophil% 1.1 % (0-1); Eosinophil# 0.27 X10^3/uL; Eosinophils% 7.7 % (0-5); Hematocrit 33.1 % (37-47); Hemoglobin 11.7 g/dL (12.0-15.0); Lymphocyte % 48.4 % (19-41); Mean Corp Hgb Conc 35.3 g/dL (32-36); Mean Corpuscular Hgb 30.6 pg (27.0-32.0); Mean Corpuscular Volume 86.6 fL (81-99); Monocyte# 0.37 X10^3/uL; Monocyte% 10.5 % (0-10); NRBC Flagged by Analyzer 0 % (0-5); Neutrophil # 1.13 X10^3/uL (2.7-7.7); Neutrophil % 32.3 % (47-70); Platelet Count 239 K/mm3 (150-450); RBC Distribution Width CV 13.4 % (11.6-14.6); RBC Distribution Width SD 41.9 fl (35.1-43.9); Red Blood Count 3.82 M/mm3 (4.2-5.4); White Blood Count 3.5 K/mm3 (4.4-11.0)
== END | disposition home or self-care (01) ==
PROVIDERS: PCP Family Medicine Geriatric Medicine; Referring Provider Family Medicine Geriatric Medicine; Visit Provider Family Medicine Geriatric Medicine
DX: Z12.31 Encounter for screening mammogram for malignant neoplasm of breast (principal); D72.819 Decreased white blood cell count, unspecified
CPT/HCPCS: 36415; 77063; 77067; 85025

== ENCOUNTER → 2024-09-13 | Outpatient (CLI) | payer MEDICARE, OTHER, SELFPAY | END | disposition home or self-care (01) | LOC: LAB 14:07 | PROVIDERS: PCP Family Medicine Geriatric Medicine; Referring Provider Family Medicine Geriatric Medicine; Visit Provider Family Medicine Geriatric Medicine | DX: E03.9 Hypothyroidism, unspecified (principal) | CPT/HCPCS: 36415; 84443 ==

== ENCOUNTER → 2024-10-12 | Outpatient (CLI) | payer MEDICARE, OTHER, SELFPAY ==
[2024-10-12 13:25] LABS: Barbiturate Urine NEGATIVE (< 200 ng/mL); Benzodiazepine Urine NEGATIVE (< 200 ng/mL); PCP Urine NEGATIVE (< 25 ng/mL); THC Urine NEGATIVE (< 50 ng/mL)
== END | disposition home or self-care (01) ==
LOC: LAB 12:36
PROVIDERS: PCP Family Medicine Geriatric Medicine; Referring Provider Anesthesiology Pain Medicine; Visit Provider Anesthesiology Pain Medicine
DX: F11.20 Opioid dependence, uncomplicated (principal)
CPT/HCPCS: 80307

== ENCOUNTER → 2024-11-22 | Outpatient (CLI) | payer MEDICARE, OTHER, SELFPAY ==
[2024-11-22 17:11] LABS: Hematocrit 34.3 % (37-47); Hemoglobin 10.8 g/dL (12.0-15.0); Immature Granulocytes Count 0.010 X10^3/uL (0.0-0.0); Mean Corp Hgb Conc 31.5 g/dL (32-36); Mean Corpuscular Volume 86.0 fL (81-99); Mean Platelet Vol. 9.5 fl (6.2-12.0); NRBC Flagged by Analyzer 0 % (0-5); Platelet Count 253 K/mm3 (150-450); RBC Distribution Width CV 13.8 % (11.6-14.6); RBC Distribution Width SD 43.8 fl (35.1-43.9); Red Blood Count 3.99 M/mm3 (4.2-5.4); White Blood Count 4.1 K/mm3 (4.4-11.0)
[2024-11-22 18:18] LABS: Anion Gap 11 (5-15); BUN 16 mg/dL (4-19); BUN/Creat Ratio 20.5 RATIO (10-20); CRP < 3.00 mg/L (0.0-3.0); Calcium,Total 8.6 mg/dL (7.6-11.0); Carbon Dioxide 25.9 mmol/L (21.0-32.0); Chloride 103 mmol/L (98-108); Glucose 85 mg/dL (70-99); Potassium 3.8 mmol/L (3.3-5.1); Uric Acid 3.0 mg/dL (2.6-6.0)
[2024-11-23 00:37] LABS: Xtra Tube Kwok EXTRA TUBE
== END | disposition home or self-care (01) ==
LOC: POLAB3 16:37
PROVIDERS: PCP Family Medicine Geriatric Medicine; Visit Provider Family Medicine Geriatric Medicine
DX: R22.32 Localized swelling, mass and lump, left upper limb (principal); R53.83 Other fatigue
CPT/HCPCS: 36415; 80048; 84550; 85025; 85652; 86140

== ENCOUNTER → 2024-11-23 | Outpatient (CLI) | payer MEDICARE, OTHER, SELFPAY ==
--- NOTE | 2024-11-23 10:48 | VDUE_ITS ---
Reason For Study Reason For Study: LEFT ARM EDEMA Right Proximal Left Proximal Right subclavian vein is spontaneous, widely patent, Left jugular vein is spontaneous, widely patent, phasic, with no intraluminal echogenicity noted. phasic, with no intraluminal echogenicity noted. Left subclavian vein is spontaneous, widely patent, phasic, with no intraluminal echogenicity noted. Left Arm Left axillary vein is spontaneous, patent, phasic, competent, compressible and demonstrates augmentation. Left brachial vein is compressible. Left cephalic vein is compressible. Left basilic vein is compressible. Left Lower Arm Left radial vein is compressible. Left ulnar vein is compressible. Procedure This was a unilateral left upper extremity venous doppler examination. Exam performed in department. A preliminary report was called and/or faxed to Dr. Navas. VL/Venous Duplex US, Unilateral Interpretation Summary Deep veins of the left upper extremity are patent and compressible segmentally. There is no evidence of deep vein thrombosis. The superficial veins in the left upper extremity, the basilic and cephalic veins, are patent and compressible. There is no evidence of left upper extremity superficial thrombop hlebitis involving the veins imaged. The right subclavian vein is patent. Ordering Physician: Wilton Navas Chi Referring Physician: Wilton Navas Chi Performed By: Merline Parra RVT and Student ???
--- NOTE | 2024-11-23 10:49 | RAD_ITS ---
PROCEDURE: ELBOW MIN 3 VIEWS 11/23/2024 REASON FOR EXAM: PAIN/SWELLING TECHNIQUE: ELBOW MIN 3 VIEWS Laterality: Left COMPARISON: None. RAD/Elbow min 3 Views IMPRESSION: No left elbow joint effusion is seen. Mild degenerative changes are seen of the humeroulnar articulation, also with p artial narrowing seen medially. Satisfactory osseous alignment is seen throughout. No fracture or dislocation is noted.. Reading Location: [place] [id number]
--- NOTE | 2024-11-23 10:49 | RAD_ITS ---
EXAM: XR Left Hand Complete, 3 or More Views CLINICAL INDICATION: PAIN/SWELLING TECHNIQUE: Frontal, lateral and oblique views of the left hand. COMPARISON: No relevant prior studies available. FINDINGS: BONES/JOINTS: Mild degenerative changes of the distal interphalangeal joints. No acute fracture. No dislocation. SOFT TISSUES: Soft tissue swelling. RAD/Hand Min 3 Views IMPRESSION: Degenerative changes as above. Reading Location: [facility]
--- NOTE | 2024-11-23 10:49 | RAD_ITS ---
EXAM: XR Left Wrist Complete, 3 or More Views CLINICAL INDICATION: PAIN/SWELLING TECHNIQUE: Frontal, lateral and oblique views of the left wrist. COMPARISON: No relevant prior studies available. FINDINGS: BONES/JOINTS: Mild degenerative changes of the 1st carpometacarpal joint. No acute fracture. No dislocation. SOFT TISSUES: Soft tissue swelling. No radiopaque foreign body. RAD/Wrist min 3 Views IMPRESSION: Degenerative changes as above. Reading Location: [facility]
== END | disposition home or self-care (01) ==
PROVIDERS: PCP Family Medicine Geriatric Medicine; Referring Provider Family Medicine Geriatric Medicine; Visit Provider Family Medicine Geriatric Medicine
DX: R22.32 Localized swelling, mass and lump, left upper limb (principal); D64.9 Anemia, unspecified; M25.532 Pain in left wrist
CPT/HCPCS: 73080; 73110; 73130; 82274; 93971

== ENCOUNTER 2025-01-15 17:48 | Emergency (ER) | payer OTHER, SELFPAY ==
[2025-01-15 17:49] VITALS: BP 146/90; PULSE 74; RESP 18; TEMP 36.5; O2SAT 97; BMI 26.1
[2025-01-15 19:20] VITALS: BP 178/77; PULSE 65; RESP 18; TEMP 36.5; O2SAT 99
[2025-01-15 20:11] LABS: Prothrombin Time (Protime)PT. 35.3 SECONDS (11.7-14.9)
== END 2025-01-15 19:20 | disposition home or self-care (01) ==
LOC: ED 19:09
PROVIDERS: Emergency Provider Emergency Medicine; PCP Family Medicine Geriatric Medicine; Visit Provider Emergency Medicine
DX: S81.811A Laceration without foreign body, right lower leg, initial encounter (principal); M06.9 Rheumatoid arthritis, unspecified; W22.09XA Striking against other stationary object, initial encounter; Y99.0 Civilian activity done for income or pay; E78.00 Pure hypercholesterolemia, unspecified; E03.9 Hypothyroidism, unspecified; Z79.01 Long term (current) use of anticoagulants; Z79.890 Hormone replacement therapy; Z79.899 Other long term (current) drug therapy; Z86.718 Personal history of other venous thrombosis and embolism
CPT/HCPCS: 85610; 99282

== ENCOUNTER 2025-01-23 15:15 | Outpatient (RCR) | payer OTHER, MEDICARE, SELFPAY ==
[2025-01-17 13:53] VITALS: BP 168/88; PULSE 80; RESP 16; TEMP 36.1; BMI 25.4
--- NOTE | 2025-01-18 09:21 | WC ---
PHOTO: RIGHT LE 01/17/25
--- NOTE | 2025-01-18 16:59 | PCM.WC.HP ---
History of Present Illness Date of Service: 01/16/25 Chief Complaint: Traumatic wound of the right posterior calf History of Wound: This is a 70-year-old female who sustained a traumatic wound to her right posterior calf on January 15, 2025. While at work, the patient backed against a large plastic tote, sustaining laceration to the right posterior calf. Shortly thereafter, she was seen and evaluated in the [facility] Emergency Department, where it was deemed that suture closure would not be appropriate. She was advised to cleanse daily with soap and water, to apply antibiotic ointment, and to cover with a clean dressing. She presented at this time for further evaluation of her open wound on the right posterior calf. It is noted that the patient is on lifelong systemic anticoagulation therapy with Coumadin due to history of recurrent lower extremity deep vein thrombosis. The patient's INR upon evaluation in the Emergency Department was 3.4, and her Coumadin dose is regulated by her other established medical providers. [facility] Medical History GERD (gastroesophageal reflux disease) Traumatic open wound of right lower leg Non-pressure chronic ulcer of right lower leg with fat layer exposed Laceration of right lower leg Wound, open, arm, forearm Wound infection Hyperlipidemia Rheumatoid arthritis Vertigo History of opioid abuse Traumatic open wound of right lower leg Ulcer of left thigh Open wound of left thigh Restless legs Difficulty swallowing Gastric reflux Non-smoker Shortness of breath on exertion Leg cramps History of pain when walking History of echocardiogram History of edema Rheumatoid arthritis Traumatic hematoma of left thigh Long-term current use of tocilizumab 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 History of deep vein thrombosis Skin necrosis History of skin cancer Neuropathy Arthritis Contusion of left thigh Contusion of left thigh, initial encounter Recurrent deep vein thrombosis of lower extremity DVT (deep venous thrombosis) High cholesterol Hypothyroidism Rheumatic fever Scleroderma Melanoma Headaches, cluster Fibromyalgia Home Medications Medication Instructions Recorded Last Taken Type estradiol 1 mg tablet 1 mg PO DAILY hormones 12/23/20 08/11/22 History acetaminophen 500 mg tablet 1,000 mg (2 x 500 mg) PO Q8 #0 tabs 08/07/22 08/11/22 Rx amitriptyline 25 mg tablet 25 mg PO QDAY 06/08/24 Unknown History hydroxychloroquine 200 mg tablet 200 mg PO QDAY 06/08/24 Unknown History oxycodone myristate 9 mg capsule 9 mg PO BID 06/08/24 Unknown History sprinkle extended release 12 hr(DON'T CRUSH) (Xtampza ER) Held on 01/17/25. Instructions: MD Ordered pantoprazole 40 mg tablet,delayed 40 mg PO QDAY 06/08/24 Unknown History release pregabalin 75 mg capsule (Lyrica) 75 mg PO QDAY 06/08/24 Unknown History citalopram 10 mg tablet 10 mg PO 01/15/25 Unknown History levothyroxine 75 mcg tablet 75 mcg PO DAILY 01/15/25 Unknown History warfarin 2.5 mg tablet 2 mg PO QDAY 01/15/25 Unknown History Allergy/AdvReac Type Severity Reaction Status Date / Time No Known Allergies Allergy Verified 01/15/25 17:49 Family History Sister Ovarian cancer Asthma Arthritis Cervical cancer Suicide attempt Father CAD (coronary artery disease) Skin cancer Brother CAD (coronary artery disease) Brother CAD (coronary artery disease) Mother Diabetes Other Breast cancer Cancer Surgical History History of appendectomy History of hysterectomy History of hernia repair History of hernia repair History of hysterectomy History of appendectomy Social History household members: spouse Smoking Status: Never smoker second hand exposure: No alcohol intake: never substance use type: does not use what type of physical activity do you participate in: walking frequency: 3-4 times per week lesly/confucianism: None seatbelt use: always do you feel safe at home: Yes additional social history: Does Take Aspirin pt denies vaping, denies marijuana use, denies edibles Pt has history of DVT Does Take Ibuprofen Vital Signs Vital Signs Vital Signs: Weight Weight: 135 lb Body Mass Index (BMI) 25.4 Physical Exam Const alert, oriented x3, no apparent distress, average body habitus, no limitations and well nourished Constitutional Narrative: The patient's BMI is 25.5. General Appearance: cooperative, well kempt and well developed Orientation / Consciousness: awake, oriented to person, oriented to place and oriented to time Exam Limitations: no limitations HEENT normocephalic and head/scalp atraumatic Head and Scalp: normal to inspection, normocephalic and atraumatic Face and Sinus: normal facial exam Nose: external nose normal External Ear: external ears normal Eyes PERRL and EOMs intact bilaterally General Eye: normal appearance of both eyes Alignment: alignment normal Neck full ROM Resp normal respiratory effort, normal air movement, no retractions and no use of accessory muscles Effort and Inspection: able to speak in complete sentences Extremity no calf tenderness General Extremity: Negative for clubbing or cyanosis Skin Wound Narrative: Diffuse ecchymoses are noted in all extremities. A traumatic wound is noted on the patient's right posterior calf. The wound is full-thickness, extending through all layers of the dermis and into the subcutaneous tissues. A large, devitalized tissue flap is noted overlying a large portion of the wound. The base of the wound is generally pink and healthy in appearance. There is no active bleeding at this time. Wound margins appear to be reasonably well beveled. There is no sign of infection or cellulitis. Dimensions are documented elsewhere. No significant swelling is noted in the lower extremities. Neuro oriented x3, CN's II-XII intact bilaterally, moves all extremities and no focal motor deficits Sensorium / Orientation: awake, alert, oriented to person, oriented to place and oriented to time Speech: speech normal Psych Appearance: grossly normal and appropriate Attitude: calm Activity / Motor Behavior: appropriate eye contact Speech: normal speech Mood & Affect: euthymic mood Thought Process: normal thought process Thought Content: normal thought content Attention / Concentration: attention grossly intact Debridement Note Debridement Note Wound debrided: Right posterior calf wound Laterality: Right Type of Debridement: Excisional debridement Anesthesia Used: 5% Lidocaine Gel Depth: Down to and including healthy tissue and in the subcutaneous layer Percentage of wound debrided: 70 Instrument Used: Forceps and - (Scissors) Tissue Removed: Devitalized skin flap Severity: Fat Layer Exposed Amount of bleeding with debridement: Mild Bleeding Controlled with: Compression and gauze Patient tolerated procedure: Patient tolerated procedure well Debridement Free Text: A large devitalized tissue flap was noted at the site of the patient's right posterior calf wound. A forceps and scissors were used to excise the tissue flap. Otherwise, significant debridement was not performed, as the most recent PT/INR was noted to be significantly elevated, and the desire was to avoid undue bleeding which could occur with a more aggressive debridement. It is anticipated that a more comprehensive debridement will be undertaken in the future, once it is known that the patient's PTT/INR is within desired levels. Post-Debridement Measurements and Additional Note: Post-Debridement Measurements/Treatment WC - Nurse 1 - General Ulcer Assessment Start: 01/17/25 13:53 Freq: Status: Active Protocol: MYRA.CHLOE Activity Type Activity Date Activity User E-sign Co-sign Detail Recorded Client Recorded Date Recorded By Document 01/17/25 13:53 [id number] 01/17/25 14:14 01/17/25 13:53 - Today's Visit Information Type of service Initial Visit Arrival Mode Ambulatory Transfer Assistance None Patient Identification Verified (Name & Yes ) Patient Requires Transmission-Based No Precautions Safety Precautions NA Height and Weight Height 5 ft 1 in Weight 135 lb Weight in Pounds 135.0 lbs Body Mass Index (BMI) 25.4 BMI Classification Overweight Vital Signs Temperature (97.8 F-99.1 F) 97.0 F L Temperature Source Temporal Pulse Rate (60-100) 80 Pulse Location Monitor Respiratory Rate (12-18) 16 Respiratory rate source Observation Blood Pressure (90/60-120/80) 168/88 H Blood Pressure Mean 114 Source Monitor Position Sitting History Since Last Visit- (Skip if this is Patient's initial visit) Any new allergies or adverse reactions No Had a fall/change in ADL's that may No increase risk of falls Signs or symptoms of abuse and/or No neglect since last visit Left Footwear Regular Shoe Right Footwear Regular Shoe Pain Scale: 0-10 Numeric Is Patient Pain Free? No RLE -Description Burning -Intensity 6 -Duration (hours) Acute -Pain Behavior Withdrawal from Touch -Pain Aggravating Factors Exercise/ Activity -Alleviating Factors/Interventions None Pain Scale: Adult NonVerbal Is Patient Pain Free? No Lower Extremity Assessment/ Foot Assessment/ Toe Nail Assessment Right -Posterior Tibial Palpable Yes -Dorsalis Pedis Palpable Yes -Extremity Color Hemosiderin -Hair Growth on Legs No -Hair Growth on Toes No -Temperature of Extremity Warm -Capillary Refill Greater than 3 Seconds -Dependent Rubor No -Blanched when Elevated No -Lipodermatosclerosis No -Other Deformity No -Prior Foot Ulcer No -Charcot Joint No -Prior Amputation No -Thick No -Discolored No -Deformed No -Improper Length & Hygeine Yes Left -Posterior Tibial Palpable Yes -Dorsalis Pedis Palpable Yes -Extremity Color Hemosiderin -Hair Growth on Legs No -Hair Growth on Toes No -Temperature of Extremity Warm -Capillary Refill Greater than 3 Seconds -Dependent Rubor No -Blanched when Elevated No -Lipodermatosclerosis No -Other Deformity No -Prior Foot Ulcer No -Charcot Joint No -Prior Amputation No -Thick No -Discolored No -Deformed No -Improper Length & Hygeine Yes Neuropathy Assessment Feet - Top Side and Bottom <Entered> (a) Communication Assessment Preferred language Beninese Wheelage Clerk Required No Able to Read Yes Able to Write Yes Communication Tools None Right Hearing Abillity Normal Left Hearing Abillity Normal Visual Assistive Devices Glasses Teaching Assessment Preferences Verbal,Written Barriers to Learning None Readiness To Learn Good Willingness to Engage in Self Management Med Activies Readiness to Engage in Self Management Med Activities Anxiety Level Calm Cooperation Cooperative Perception Coherent Interest in Health Problem Asks Questions Education Importance Acknowledges Need Does Patient Smoke tobacco or other No substances Smoking Status Never smoker Is Patient Diabetic No Functional Assessment Recent Decline in Ability to Perform Denies Any Declines Assistive Device With Patient No Culture/Jain/Health Informatics Instructor Cultural/Jain Needs that may affect No Treatment Plan Would you allow 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 Health Informatics Instructor to contact place of congregational No Teaching: Wound Center *Welcome to the Wound Center -Person Taught Patient -Teaching Method Discussion -Response to teaching Verbalize Understanding (a) 1 - + throughout WC - Nurse 1 - General Ulcer Measurement Start: 01/17/25 13:53 Freq: Status: Active Protocol: Activity Type Activity Date Activity User E-sign Co-sign Detail Recorded Client Recorded Date Recorded By Document 01/17/25 13:53 TS [id number] 01/17/25 14:14 TS 01/17/25 13:53 Wound Center Nurse 1 #2 RT ANT LEG -Combined with other wound No #4 RLE post calf -Current Size (cm) - Length 3.8 -Current Size (cm) - Width 3.4 -Current Size (cm) - Depth 0.1 -Total Square Cm 12.92 -Photo Taken Yes -Tunneling No -Undermining/Tunneling No -Circular Undermining No -Exudate Amt Large -Exudate Type Serosanguineous -Wound Margin Indistinct, Non -Visible -Granulation Amt Large (67-100%) -Granulation Quality Red -Slough/Fibrin Yes -Necrosis Amt Small (1-33%) -Necrotic Tissue Type Adherent Slough -Structure Exposed N/A -Texture (Jannet-wound Skin Appearance) Assessed -Moisture (Jannet-wound Skin Appearance) Weeping -Color (Jannet-wound Skin Appearance) Ecchymosis -Temperature (Jannet-wound Skin No Abnormality Appearance) (Pt Warm) -Tenderness on Palpation (Jannet-wound No Skin Appearance) -Ulcer Cleansing Rinsed/ Irrigated with Saline -Foul Odor after Cleansing No -Anesthetic Used 4% Lidocaine Solution Lower Limb Edema Present Yes Right Calf (cm) 33.5 Right Ankle (cm) 19.2 Left Calf (cm) 32.5 Left Ankle (cm) 18.5 WC - Nurse 2 - General Ulcer CM Notes Start: 01/17/25 13:53 Freq: Status: Active Protocol: Activity Type Activity Date Activity User E-sign Co-sign Detail Recorded Client Recorded Date Recorded By Document 01/17/25 14:34 [id number] 01/17/25 14:43 01/17/25 14:34 Wound Center Nurse 2 #4 RLE post calf -Time 14:34 -Correct Patient Yes -Correct Side, Site, Position Yes -Correct Procedure Yes -Procedure Performed Yes -Type of Procedure Debridement -Clinical Debridement Subcutaneous -Tissue Removed Subcutaneous -Post Debridement (cm) - Length 3 -Post Debridement (cm) - Width 5 -Post Debridement (cm) - Depth 0.1 -Total Square (Post) (cm) 15 -Area of Debridement (cm) - Length 3 -Area of Debridement (cm) - Width 5 -Total Square (Area) (cm) 15 -Tunneling No -Undermining/Tunneling No -Circular Undermining No -Wound/Ulcer Outcome Not Healed -Ulcer Cleansing Rinsed/ Irrigated with Saline -Foul Odor after Cleansing No -Bioengineered Tissue No -Bleeding Controlled with Pressure -Treatment Response Procedure Tolerated Well -Offloading No -Debridement - Subq, 1st 20sq cm Yes Pain Scale: 0-10 Numeric Is Patient Pain Free? Yes WC - Nurse 3 - General Ulcer D/C NN Start: 01/17/25 13:53 Freq: Status: Active Protocol: Activity Type Activity Date Activity User E-sign Co-sign Detail Recorded Client Recorded Date Recorded By Document 01/17/25 14:48 GM [id number] 01/17/25 14:49 Document 01/17/25 15:01 RB [id number] 01/17/25 15:02 RB 01/17/25 01/17/25 14:48 15:01 Wound Care Center Nurse 3 #4 RLE post calf -Ulcer Cleansing Not Cleansed Rinsed/ Irrigated with Saline -Foul Odor after Cleansing No -Primary Dressing Applied C Hydrogel C Hydrogel, NonAdherent Contact Layer -Primary Dressing Covered/Secured with Dry Gauze & Dry Gauze & Roll Gauze, Roll Gauze, Secured with Secured with Tape Tape -Hydrogel 1 1 RLE -Lotion applied to leg before No compression wrap -Compression Wrap David Wrap David Wrap Treatment Response Procedure Tolerated Well Pain Scale: 0-10 Numeric Is Patient Pain Free? Yes Yes WC - Visit Discharge Discharge Condition Stable Stable Ambulatory Status Ambulatory Ambulatory Transportation Private Auto Private Auto Medication Reconcilliation completed & No provided to patient/care provider Clinical Summary of Care Provided Yes Charges/Coding Multi Select Codes Visit Charges Office Visit/Consults: 24480 OV L5 Est 40 min Integumentary Integumentary CPT Codes: 64313 Patrizia subq tissue 20 sq cm/< Assessment/Plan Assessment/Plan (1) Non-pressure chronic ulcer of right lower leg with fat layer exposed: CODE(S): L97.912 - Non-pressure chronic ulcer of unspecified part of right lower leg with fat layer exposed (2) Traumatic open wound of right lower leg: CODE(S): S81.801A - Unspecified open wound, right lower leg, initial encounter QUALIFIERS: Encounter type: initial encounter Qualified Code(s): S81.801A - Unspecified open wound, right lower leg, initial encounter (3) Laceration of right lower leg: CODE(S): S81.811A - Laceration without foreign body, right lower leg, initial encounter QUALIFIERS: Encounter type: initial encounter Qualified Code(s): S81.811A - Laceration without foreign body, right lower leg, initial encounter (4) 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: CODE(S): Z79.01 - 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 (5) Encounter related to worker's compensation claim: CODE(S): Z02.6 - Encounter for examination for insurance purposes (6) Chronic anticoagulation: CODE(S): Z79.01 - correction (current) use of anticoagulants (7) History of deep vein thrombosis: CODE(S): Z86.718 - Personal history of other venous thrombosis and embolism (8) History of appendectomy: CODE(S): Z90.49 - Acquired absence of other specified parts of digestive tract (9) History of hysterectomy: CODE(S): Z90.710 - Acquired absence of both cervix and uterus (10) History of hernia repair: CODE(S): Z98.890 - Other specified postprocedural states; Z87.19 - Personal history of other diseases of the digestive system (11) Hyperlipidemia: CODE(S): E78.5 - Hyperlipidemia, unspecified (12) Rheumatoid arthritis: CODE(S): M06.9 - Rheumatoid arthritis, unspecified (13) Fibromyalgia: CODE(S): M79.7 - Fibromyalgia (14) Scleroderma: CODE(S): M34.9 - Systemic sclerosis, unspecified (15) Bruising tendency: CODE(S): D69.9 - Hemorrhagic condition, unspecified (16) Rheumatoid arthritis: CODE(S): M06.9 - Rheumatoid arthritis, unspecified (17) Neuropathy: CODE(S): G62.9 - Polyneuropathy, unspecified PLAN: Plan This is a 70-year-old female who presented with an open wound on the right posterior calf. The injury occurred while at work, resulting in a full-thickness wound to the right posterior calf. The patient is on systemic anticoagulation due to multiple prior episodes of acute deep vein thrombosis. Her most recent PT/INR was noted to be above desired levels. Repeat PT/INR is anticipated in the near future. A devitalized tissue flap was excised in the Wound Center today. We are to implement the use of collagen hydrogel topically to the wound on a daily basis. This is to be covered by Adaptic and gauze. An David wrap will be applied over the distal right lower extremity. This protocol is to be repeated by the patient daily. The patient has been instructed in appropriate means of application. Patient is to return in 1 week for reevaluation. Total time: 45 minutes
[2025-01-23 15:11] VITALS: BP 148/75; PULSE 74; RESP 18; TEMP 35.9; BMI 25.4
--- NOTE | 2025-01-23 23:08 | HP.PCM_ITS ---
History of Present Illness Date of Service: 01/23/25 Chief Complaint: Traumatic wound of the right posterior calf History of Wound: This is a 70-year-old female who sustained a traumatic wound to her right posterior calf on January 15, 2025. While at work, the patient backed against a large plastic tote, sustaining laceration to the right posterior calf. Shortly thereafter, she was seen and evaluated in the [facility] Emergency Department, where it was deemed that suture closure would not be appropriate. She was advised to cleanse daily with soap and water, to apply antibiotic ointment, and to cover with a clean dressing. She presented at this time for further evaluation of her open wound on the right posterior calf. It is noted that the patient is on lifelong systemic anticoagulation therapy with Coumadin due to history of recurrent lower extremity deep vein thrombosis. The patient's INR upon evaluation in the Emergency Department was 3.4, and her Coumadin dose is regulated by her other established medical providers. [facility] Medical History GERD (gastroesophageal reflux disease) Traumatic open wound of right lower leg Non-pressure chronic ulcer of right lower leg with fat layer exposed Laceration of right lower leg Wound, open, arm, forearm Wound infection Hyperlipidemia Rheumatoid arthritis Vertigo History of opioid abuse Traumatic open wound of right lower leg Ulcer of left thigh Open wound of left thigh Restless legs Difficulty swallowing Gastric reflux Non-smoker Shortness of breath on exertion Leg cramps History of pain when walking History of echocardiogram History of edema Rheumatoid arthritis Traumatic hematoma of left thigh Long-term current use of tocilizumab 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 History of deep vein thrombosis Skin necrosis History of skin cancer Neuropathy Arthritis Contusion of left thigh Contusion of left thigh, initial encounter Recurrent deep vein thrombosis of lower extremity DVT (deep venous thrombosis) High cholesterol Hypothyroidism Rheumatic fever Scleroderma Melanoma Headaches, cluster Fibromyalgia Home Medications Medication Instructions Recorded Last Taken Type estradiol 1 mg tablet 1 mg PO DAILY hormones 12/2308/11/22 History acetaminophen 500 mg tablet 1,000 mg (2 x 500 mg) PO Q 8 #0 tabs 08/07/22 08/11/22 Rx amitriptyline 25 mg tablet 25 mg PO QDAY 06/08/24 Unkn own History hydroxychloroquine 200 mg tablet 200 mg PO QDAY Unknown History oxycodone myristate 9 mg capsule 9 mg PO BID 06/08/24 Unknown History sprinkle extended release 12 hr(DON'T CRUSH) (Xtampza ER) Held on 01/17/25. Instructions: MD Ordered pantoprazole 40 mg tablet,delayed 40 mg PO QDAY Unknown History release pregabalin 75 mg capsule (Lyrica) 75 mg PO QDAY Unknown History citalopram 10 mg tablet 10 mg PO 01/15/25 Unknown Hi story levothyroxine 75 mcg tablet 75 mcg PO DAILY 01/15/25 U nknown History warfarin 2.5 mg tablet 2 mg PO QDAY 01/15/25 Unknow n History Allergy/AdvReac Type Severity Reaction Status Date / Time No Known Allergies Allergy Verified 01/15/25 17:49 Family History Sister Ovarian cancer Asthma Arthritis Cervical cancer Suicide attempt Father CAD (coronary artery disease) Skin cancer Brother CAD (coronary artery disease) Brother CAD (coronary artery disease) Mother Diabetes Other Breast cancer Cancer Surgical History History of appendectomy History of hysterectomy History of hernia repair History of hernia repair History of hysterectomy History of appendectomy Social History household members: spouse Smoking Status: Never smoker second hand exposure: No alcohol intake: never substance use type: does not use what type of physical activity do you participate in: walking frequency: 3-4 times per week lesly/amish: None seatbelt use: always do you feel safe at home: Yes additional social history: Does Take Aspirin pt denies vaping, denies marijuana use, denies edibles Pt has history of DVT Does Take Ibuprofen Vital Signs Vital Signs Vital Signs: 01/23/25 15:11 Temperature 96.7 F L Temperature Source Temporal Pulse Rate 74 Respiratory Rate 18 Blood Pressure 148/75 H Blood Pressure Mean 99 Blood Pressure Source Monitor Blood Pressure Position Sitting Blood Pressure Location Left Arm Weight Weight: 135 lb Body Mass Index (BMI) 25.4 Physical Exam Const alert, oriented x3, no apparent distress, average body habitus, no limitations and well nourished Constitutional Narrative: The patient's BMI is 25.5. General Appearance: cooperative, well kempt and well developed Orientation / Consciousness: awake, oriented to person, oriented to place and oriented to time Exam Limitations: no limitations HEENT normocephalic and head/scalp atraumatic Head and Scalp: normal to inspection, normocephalic and atraumatic Face and Sinus: normal facial exam Nose: external nose normal External Ear: external ears normal Eyes EOMs intact bilaterally General Eye: normal appearance of both eyes Alignment: alignment normal Neck full ROM Resp normal respiratory effort, normal air movement, no retractions and no use of accessory muscles Effort and Inspection: able to speak in complete sentences Extremity no calf tenderness General Extremity: Negative for clubbing or cyanosis Skin Wound Narrative: Diffuse ecchymoses are noted in all extremities. A traumatic wound is noted on the patient's right posterior calf. The wound is full-thickness, extending through all layers of the dermis and into the subcutaneous tissues. The base of the wound is generally pink and healthy in appearance, with areas of active granulation tissue. There is no active bleeding at this time. Wound margins appear to be well beveled. There is no sign of infection or cellulitis. Dimensions are documented elsewhere. No significant swelling is noted in the lower extremities. Neuro oriented x3, CN's II-XII intact bilaterally, moves all extremities and no focal motor deficits Sensorium / Orientation: awake, alert, oriented to person, oriented to place and oriented to time Speech: speech normal Psych Appearance: grossly normal and appropriate Attitude: calm Activity / Motor Behavior: appropriate eye contact Speech: normal speech Mood & Affect: euthymic mood Thought Process: normal thought process Thought Content: normal thought content Attention / Concentration: attention grossly intact Debridement Note Debridement Note Debridement Free Text: A debridement was not performed today, as it is noted that the patient's INR is above the desired range, documented to be 3.6 only 5 days ago. The patient's other providers are monitoring her warfarin dose. It is preferred that the patient INR return to target level before debridement is implemented, so as to avoid undesired bleeding. No debridement was completed: No debridement was completed today Post-Debridement Measurements and Additional Note: Post-Debridement Measurements/Treatment MYRA - Nurse 1 - General Ulcer Assessment Start: 01/17/25 13:53 Freq: Status: Active Protocol: WC.LOWEXT Activity Type Activity Date Activity User E-sign Co-sign Detail Recorded Client Recorded Date Recorded By Document 01/17/25 13:53 TS [id number] 01/17/25 14:14 TS Document 01/23/25 15:11 RB [id number] 01/23/25 15:16 RB 01/17/25 01/23/25 13:53 15:11 WC - Today's Visit Information Type of service Initial Visit Follow-up Visit (Physician/LABOR MEDIATOR ) Arrival Mode Ambulatory Ambulatory Transfer Assistance None None Patient Identification Verified (Name & Yes Yes ) Patient Requires Transmission-Based No No Precautions Safety Precautions NA Height and Weight Height 5 ft 1 in Weight 135 lb Weight in Pounds 135.0 lbs Body Mass Index (BMI) 25.4 25.4 BMI Classification Overweight Overweight Vital Signs Temperature (97.8 F-99.1 F) 97.0 F L 96.7 F L Temperature Source Temporal Temporal Pulse Rate (60-100) 80 74 Pulse Location Monitor Monitor Respiratory Rate (12-18) 16 18 Respiratory rate source Observation Observation Blood Pressure (90/60-120/80) 168/88 H 148/75 H Blood Pressure Mean 114 99 Source Monitor Monitor Position Sitting Sitting Blood Pressure Location Left Arm History Since Last Visit- (Skip if this is Patient's initial visit) Have you changed medications since your No last visit? Any new allergies or adverse reactions No No Had a fall/change in ADL's that may No No increase risk of falls Signs or symptoms of abuse and/or No No neglect since last visit Have you been in the hospital since your No last visit? Has dressing in place as prescribed Yes Has compression in place as prescribed Yes Has offloadiing in place as prescribed N/A Experienced any changes in pain level or No management Left Footwear Regular Shoe Regular Shoe Right Footwear Regular Shoe Regular Shoe Pain Scale: 0-10 Numeric Is Patient Pain Free? No Yes RLE -Description Burning -Intensity 6 -Duration (hours) Acute -Pain Behavior Withdrawal from Touch -Pain Aggravating Factors Exercise/ Activity -Alleviating Factors/Interventions None Pain Scale: Adult NonVerbal Is Patient Pain Free? No Lower Extremity Assessment/ Foot Assessment/ Toe Nail Assessment Right -Posterior Tibial Palpable Yes -Dorsalis Pedis Palpable Yes -Extremity Color Hemosiderin -Hair Growth on Legs No -Hair Growth on Toes No -Temperature of Extremity Warm -Capillary Refill Greater than 3 Seconds -Dependent Rubor No -Blanched when Elevated No -Lipodermatosclerosis No -Other Deformity No -Prior Foot Ulcer No -Charcot Joint No -Prior Amputation No -Thick No -Discolored No -Deformed No -Improper Length & Hygeine Yes Left -Posterior Tibial Palpable Yes -Dorsalis Pedis Palpable Yes -Extremity Color Hemosiderin -Hair Growth on Legs No -Hair Growth on Toes No -Temperature of Extremity Warm -Capillary Refill Greater than 3 Seconds -Dependent Rubor No -Blanched when Elevated No -Lipodermatosclerosis No -Other Deformity No -Prior Foot Ulcer No -Charcot Joint No -Prior Amputation No -Thick No -Discolored No -Deformed No -Improper Length & Hygeine Yes Neuropathy Assessment Feet - Top Side and Bottom <Entered> (a) Communication Assessment Preferred language Korean Clerical Administrator Required No Able to Read Yes Able to Write Yes Communication Tools None Right Hearing Abillity Normal Left Hearing Abillity Normal Visual Assistive Devices Glasses Teaching Assessment Preferences Verbal,Written Barriers to Learning None Readiness To Learn Good Willingness to Engage in Self Management Med Activies Readiness to Engage in Self Management Med Activities Anxiety Level Calm Cooperation Cooperative Perception Coherent Interest in Health Problem Asks Questions Education Importance Acknowledges Need Does Patient Smoke tobacco or other No substances Smoking Status Never smoker Is Patient Diabetic No Functional Assessment Recent Decline in Ability to Perform Denies Any Declines Assistive Device With Patient No Culture/Caodaism/Radiologic Technologist Mammogram Cultural/Caodaism Needs that may affect No Treatment Plan Would you allow our hospital fish hatchery assistant to No meet you for the purpose of spiritual/ emotional support? Radiologic Technologist Mammogram to contact place of cheondoism No Teaching: Wound Center *Welcome to the Wound Center -Person Taught Patient -Teaching Method Discussion -Response to teaching Verbalize Understanding (a) 1 - + throughout WC - Nurse 1 - General Ulcer Measurement Start: 01/17/25 13:53 Freq: Status: Active Protocol: Activity Type Activity Date Activity User E-sign Co-sign Detail Recorded Client Recorded Date Recorded By Document 01/17/25 13:53 TS [id number] 01/17/25 14:14 TS Document 01/23/25 15:11 RB [id number] 01/23/25 15:16 RB 01/17/25 01/23/25 13:53 15:11 Wound Center Nurse 1 #2 RT ANT LEG -Combined with other wound No #4 RLE post calf -Combined with other wound No -Current Size (cm) - Length 3.8 2.5 -Current Size (cm) - Width 3.4 3.5 -Current Size (cm) - Depth 0.1 0.1 -Total Square Cm 12.92 8.75 -Photo Taken Yes Yes -Tunneling No No -Undermining/Tunneling No No -Circular Undermining No No -Exudate Amt Large Medium -Exudate Type Serosanguineous Serosanguineous -Wound Margin Indistinct, Non Distinct, -Visible Outline Attached -Granulation Amt Large (67-100%) Medium (34-66%) -Granulation Quality [place] -Slough/Fibrin Yes Yes -Necrosis Amt Small (1-33%) Medium (34-66%) -Necrotic Tissue Type Adherent Slough Adherent Slough -Structure Exposed N/A N/A -Texture (Jannet-wound Skin Appearance) Assessed Assessed -Moisture (Jannet-wound Skin Appearance) Weeping Assessed -Color (Jannet-wound Skin Appearance) Ecchymosis Assessed, Ecchymosis -Temperature (Jannet-wound Skin No Abnormality No Abnormality Appearance) (Pt Warm) (Pt Warm) -Tenderness on Palpation (Jannet-wound No No Skin Appearance) -Ulcer Cleansing Rinsed/ Wound Cleanser Irrigated with Saline -Foul Odor after Cleansing No No -Anesthetic Used 4% Lidocaine 5% Lidocaine Solution Gel Lower Limb Edema Present Yes Yes Right Calf (cm) 33.5 35.5 Right Ankle (cm) 19.2 20 Left Calf (cm) 32.5 Left Ankle (cm) 18.5 WC - Nurse 2 - General Ulcer CM Notes Start: 01/17/25 13:53 Freq: Status: Active Protocol: Activity Type Activity Date Activity User E-sign Co-sign Detail Recorded Client Recorded Date Recorded By Document 01/17/25 14:34 [id number] 01/17/25 14:43 GM Document 01/23/25 16:01 DS [id number] 01/23/25 16:02 DS 01/17/25 01/23/25 14:34 16:01 Wound Center Nurse 2 #4 RLE post calf -Time 14:34 16:01 -Correct Patient Yes Yes -Correct Side, Site, Position Yes Yes -Correct Procedure Yes -Procedure Performed Yes No -Type of Procedure Debridement -Clinical Debridement Subcutaneous -Tissue Removed Subcutaneous -Post Debridement (cm) - Length 3 3.4 -Post Debridement (cm) - Width 5 4.4 -Post Debridement (cm) - Depth 0.1 0.1 -Total Square (Post) (cm) 15 14.96 -Area of Debridement (cm) - Length 3 3.4 -Area of Debridement (cm) - Width 5 4.4 -Total Square (Area) (cm) 15 14.96 -Tunneling No No -Undermining/Tunneling No -Circular Undermining No No -Wound/Ulcer Outcome Not Healed Not Healed -Ulcer Cleansing Rinsed/ Irrigated with Saline -Foul Odor after Cleansing No -Bioengineered Tissue No -Bleeding Controlled with Pressure -Treatment Response Procedure Tolerated Well -Offloading No -Debridement - Subq, 1st 20sq cm Yes Pain Scale: 0-10 Numeric Is Patient Pain Free? Yes Yes - Nurse 3 - General Ulcer D/C NN Start: 01/17/25 13:53 Freq: Status: Active Protocol: Activity Type Activity Date Activity User E-sign Co-sign Detail Recorded Client Recorded Date Recorded By Document 01/17/25 14:48 [id number] 01/17/25 14:49 Document 01/17/25 15:01 RB [id number] 01/17/25 15:02 RB Document 01/23/25 16:05 [id number] 01/23/25 16:06 01/17/25 01/17/25 01/23/25 14:48 15:01 16:05 Wound Care Center Nurse 3 #4 RLE post calf -Ulcer Cleansing Not Cleansed Rinsed/ Rinsed/ Irrigated with Irrigated with Saline Saline -Foul Odor after Cleansing No No -Primary Dressing Applied C Hydrogel C Hydrogel, C Hydrogel, NonAdherent NonAdherent Contact Layer Contact Layer -Primary Dressing Covered/Secured with Dry Gauze & Dry Gauze & Dry Gauze, Roll Gauze, Roll Gauze, Secured with Secured with Secured with Tape Tape Tape -Hydrogel 1 1 0 RLE -Lotion applied to leg before No compression wrap -Compression Wrap David Wrap David Wrap David Wrap Treatment Response Procedure Tolerated Well Pain Scale: 0-10 Numeric Is Patient Pain Free? Yes Yes Yes - Visit Discharge Discharge Condition Stable Stable Stable Ambulatory Status Ambulatory Ambulatory Ambulatory Transportation Private Auto Private Auto Private Auto Medication Reconcilliation completed & No Yes provided to patient/care provider Clinical Summary of Care Provided Yes Yes Charges/Coding Visit Charges Office Visits / Consults: 20385 OV L3 Est 20min Assessment/Plan Assessment/Plan (1) Non-pressure chronic ulcer of right lower leg with fat layer exposed: CODE(S): L97.912 - Non-pressure chronic ulcer of unspecified part of right lower leg with fat layer exposed (2) Traumatic open wound of right lower leg: CODE(S): S81.801A - Unspecified open wound, right lower leg, initial encounter QUALIFIERS: Encounter type: subsequent encounter Qualified Code(s): S81.801D - Unspecified open wound, right lower leg, subsequent encounter (3) Laceration of right lower leg: CODE(S): S81.811A - Laceration without foreign body, right lower leg, initial encounter QUALIFIERS: Encounter type: subsequent encounter Qualified Code(s): S81.811D - Laceration without foreign body, right lower leg, subsequent encounter (4) 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: CODE(S): Z79.01 - FDC (current) use of anticoagulants (5) Encounter related to worker's compensation claim: CODE(S): Z02.6 - Encounter for examination for insurance purposes (6) Chronic anticoagulation: CODE(S): Z79.01 - 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 (7) History of deep vein thrombosis: CODE(S): Z86.718 - Personal history of other venous thrombosis and embolism (8) History of appendectomy: CODE(S): Z90.49 - Acquired absence of other specified parts of digestive tract (9) History of hysterectomy: CODE(S): Z90.710 - Acquired absence of both cervix and uterus (10) History of hernia repair: CODE(S): Z98.890 - Other specified postprocedural states; Z87.19 - Personal history of other diseases of the digestive system (11) Hyperlipidemia: CODE(S): E78.5 - Hyperlipidemia, unspecified (12) Rheumatoid arthritis: CODE(S): M06.9 - Rheumatoid arthritis, unspecified (13) Fibromyalgia: CODE(S): M79.7 - Fibromyalgia (14) Scleroderma: CODE(S): M34.9 - Systemic sclerosis, unspecified (15) Bruising tendency: CODE(S): D69.9 - Hemorrhagic condition, unspecified (16) Rheumatoid arthritis: CODE(S): M06.9 - Rheumatoid arthritis, unspecified (17) Neuropathy: CODE(S): G62.9 - Polyneuropathy, unspecified PLAN: Plan This is a 70-year-old female who presented with an open wound on the right posterior calf. The injury occurred while at work, resulting in a full- thickness wound to the right posterior calf. The patient is on systemic anticoagulation due to multiple prior episodes of acute deep vein thrombosis. Her most recent INR was noted to be above desired levels, 3.6, five days ago. Repeat PT/INR is anticipated in the near future, and is to be overseen by the patient's other medical providers. We are to continue the use of collagen hydrogel topically to the wound on a daily basis. This is to be covered by Adaptic and gauze. An David wrap will be applied over the distal right lower extremity. This protocol is to be repeated by the patient daily. The patient has been instructed in appropriate means of application. The patient is to return in 1 week for reevaluation. Total time: 25 minutes
--- NOTE | 2025-01-25 11:26 | WC ---
PHOTO-RIGHT POST CALF 01/23/25
== END 2025-01-26 23:59 | disposition home or self-care (01) ==
LOC: WC 15:15
PROVIDERS: PCP Family Medicine Geriatric Medicine; Referring Provider Physician Assistant; Visit Provider Surgery
DX: L97.912 Non-pressure chronic ulcer of unspecified part of right lower leg with fat layer exposed (principal); M34.9 Systemic sclerosis, unspecified; M06.9 Rheumatoid arthritis, unspecified; E78.5 Hyperlipidemia, unspecified; Z82.49 Family history of ischemic heart disease and other diseases of the circulatory system; M79.7 Fibromyalgia; Z02.6 Encounter for examination for insurance purposes; Z79.01 Long term (current) use of anticoagulants; Z86.718 Personal history of other venous thrombosis and embolism; Z79.891 Long term (current) use of opiate analgesic; Z90.710 Acquired absence of both cervix and uterus; Z90.49 Acquired absence of other specified parts of digestive tract; S81.811D Laceration without foreign body, right lower leg, subsequent encounter; G62.9 Polyneuropathy, unspecified; D69.9 Hemorrhagic condition, unspecified
CPT/HCPCS: 11042; 99213; 99214; G0463

== ENCOUNTER → 2025-01-30 | Outpatient (CLI) | payer MEDICARE, OTHER, SELFPAY ==
[2025-01-30 13:17] LABS: Hematocrit 35.1 % (37-47); Hemoglobin 11.0 g/dL (12.0-15.0); Immature Granulocytes Count 0.020 X10^3/uL (0.0-0.0); Mean Corp Hgb Conc 31.3 g/dL (32-36); Mean Corpuscular Volume 84.8 fL (81-99); Mean Platelet Vol. 9.1 fl (6.2-12.0); NRBC Flagged by Analyzer 0 % (0-5); Platelet Count 280 K/mm3 (150-450); RBC Distribution Width CV 13.7 % (11.6-14.6); RBC Distribution Width SD 42.5 fl (35.1-43.9); Red Blood Count 4.14 M/mm3 (4.2-5.4); White Blood Count 4.1 K/mm3 (4.4-11.0)
[2025-01-30 14:28] LABS: AST(SGOT) 35 U/L (<=31); Alanine Aminotransfer ALT/SGPT 21 U/L (<=34); Albumin, Serum 4.2 g/dL (3.4-4.8); Alkaline Phosphatase 73 U/L (35-104); Anion Gap 8 (5-15); BUN 16 mg/dL (4-19); BUN/Creat Ratio 18.6 RATIO (10-20); Calcium,Total 8.6 mg/dL (7.6-11.0); Carbon Dioxide 28.2 mmol/L (21.0-32.0); Chloride 102 mmol/L (98-108); Globulin 2.4 g/dL (2.2-4.2); Glucose 110 mg/dL (70-99); Potassium 4.0 mmol/L (3.3-5.1); Vitamin D,25 Hydroxy 23.2 ng/mL (30-100)
[2025-01-30 20:56] LABS: Xtra Tube Kwok EXTRA TUBE
== END | disposition home or self-care (01) ==
LOC: POLAB3 12:55
PROVIDERS: PCP Family Medicine Geriatric Medicine; Visit Provider Family Medicine Geriatric Medicine
DX: E55.9 Vitamin D deficiency, unspecified (principal); R53.83 Other fatigue
CPT/HCPCS: 36415; 80053; 82306; 84443; 85025

== ENCOUNTER 2025-02-06 14:15 | Outpatient (RCR) | payer OTHER, SELFPAY ==
[2025-01-30 14:05] VITALS: BP 135/72; PULSE 135; RESP 16; TEMP 35.6
--- NOTE | 2025-01-30 15:33 | WC ---
PHOTO-RIGHT POST LEG 01/30/25
--- NOTE | 2025-01-30 16:12 | PCM.WC.HP ---
History of Present Illness Date of Service: 01/30/25 Chief Complaint: Traumatic wound of the right posterior calf History of Wound: This is a 70-year-old female who sustained a traumatic wound to her right posterior calf on January 15, 2025. While at work, the patient backed against a large plastic tote, sustaining laceration to the right posterior calf. Shortly thereafter, she was seen and evaluated in the [facility] Emergency Department, where it was deemed that suture closure would not be appropriate. She was advised to cleanse daily with soap and water, to apply antibiotic ointment, and to cover with a clean dressing. She presented at this time for further evaluation of her open wound on the right posterior calf. It is noted that the patient is on lifelong systemic anticoagulation therapy with Coumadin due to history of recurrent lower extremity deep vein thrombosis. The patient's INR upon evaluation in the Emergency Department was 3.4, and her Coumadin dose is regulated by her other established medical providers. FORMERLY [facility] Medical History GERD (gastroesophageal reflux disease) Traumatic open wound of right lower leg Non-pressure chronic ulcer of right lower leg with fat layer exposed Laceration of right lower leg Wound, open, arm, forearm Wound infection Hyperlipidemia Rheumatoid arthritis Vertigo History of opioid abuse Traumatic open wound of right lower leg Ulcer of left thigh Open wound of left thigh Restless legs Difficulty swallowing Gastric reflux Non-smoker Shortness of breath on exertion Leg cramps History of pain when walking History of echocardiogram History of edema Rheumatoid arthritis Traumatic hematoma of left thigh Long-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 current use 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 History of deep vein thrombosis Skin necrosis History of skin cancer Neuropathy Arthritis Contusion of left thigh Contusion of left thigh, initial encounter Recurrent deep vein thrombosis of lower extremity DVT (deep venous thrombosis) High cholesterol Hypothyroidism Rheumatic fever Scleroderma Melanoma Headaches, cluster Fibromyalgia Home Medications ?Medication ?Instructions ?Recorded ?Last Taken ?Type estradiol 1 mg tablet 1 mg PO DAILY hormones 12/23/20 08/11/22 History acetaminophen 500 mg tablet 1,000 mg (2 x 500 mg) PO Q8 #0 tabs 08/07/22 08/11/22 Rx amitriptyline 25 mg tablet 25 mg PO QDAY 06/08/24 Unknown History hydroxychloroquine 200 mg tablet 200 mg PO QDAY 06/08/24 Unknown History oxycodone myristate 9 mg capsule 9 mg PO BID 06/08/24 Unknown History sprinkle extended release 12 hr(DON'T CRUSH) (Xtampza ER) Held on 01/17/25. Instructions: MD Ordered pantoprazole 40 mg tablet,delayed 40 mg PO QDAY 06/08/24 Unknown History release pregabalin 75 mg capsule (Lyrica) 75 mg PO QDAY 06/08/24 Unknown History citalopram 10 mg tablet 10 mg PO 01/15/25 Unknown History levothyroxine 75 mcg tablet 75 mcg PO DAILY 01/15/25 Unknown History warfarin 2.5 mg tablet 2 mg PO QDAY 01/15/25 Unknown History Allergy/AdvReac Type Severity Reaction Status Date / Time No Known Allergies Allergy Verified 01/15/25 17:49 Family History Sister Ovarian cancer Asthma Arthritis Cervical cancer Suicide attempt Father CAD (coronary artery disease) Skin cancer Brother CAD (coronary artery disease) Brother CAD (coronary artery disease) Mother Diabetes Other Breast cancer Cancer Surgical History History of appendectomy History of hysterectomy History of hernia repair History of hernia repair History of hysterectomy History of appendectomy Social History household members: spouse Smoking Status: Never smoker second hand exposure: No alcohol intake: never substance use type: does not use what type of physical activity do you participate in: walking frequency: 3-4 times per week lesly/taoism: None seatbelt use: always do you feel safe at home: Yes additional social history: Does Take Aspirin pt denies vaping, denies marijuana use, denies edibles Pt has history of DVT Does Take Ibuprofen Vital Signs Vital Signs Vital Signs: 01/30/25 14:05 Temperature 96.1 F L Temperature Source Temporal Pulse Rate 135 H Respiratory Rate 16 Blood Pressure 135/72 H Blood Pressure Mean 93 Blood Pressure Source Monitor Blood Pressure Position Sitting Blood Pressure Location Left Arm Physical Exam Const alert, oriented x3, no apparent distress, average body habitus, no limitations and well nourished Constitutional Narrative: The patient's BMI is 25.5. General Appearance: cooperative, well kempt and well developed Orientation / Consciousness: awake, oriented to person, oriented to place and oriented to time Exam Limitations: no limitations HEENT normocephalic and head/scalp atraumatic Head and Scalp: normal to inspection, normocephalic and atraumatic Face and Sinus: normal facial exam Nose: external nose normal External Ear: external ears normal Eyes EOMs intact bilaterally General Eye: normal appearance of both eyes Alignment: alignment normal Neck full ROM Resp normal respiratory effort, normal air movement, no retractions and no use of accessory muscles Effort and Inspection: able to speak in complete sentences Extremity no calf tenderness General Extremity: Negative for clubbing or cyanosis Skin Wound Narrative: Diffuse ecchymoses are noted in all extremities. A traumatic wound is noted on the patient's right posterior calf. The wound is full-thickness, extending through all layers of the dermis and into the subcutaneous tissues. The base of the wound is generally pink and healthy in appearance, with areas of active granulation tissue. Minimal bioburden and slough are present. There is no active bleeding at this time. Wound margins appear to be well beveled. There is no sign of infection or cellulitis. Dimensions are documented elsewhere. The wound has decreased in size since the patient's prior visit. No significant swelling is noted in the lower extremities. Neuro oriented x3, CN's II-XII intact bilaterally, moves all extremities and no focal motor deficits Sensorium / Orientation: awake, alert, oriented to person, oriented to place and oriented to time Speech: speech normal Psych Appearance: grossly normal and appropriate Attitude: calm Activity / Motor Behavior: appropriate eye contact Speech: normal speech Mood & Affect: euthymic mood Thought Process: normal thought process Thought Content: normal thought content Attention / Concentration: attention grossly intact Debridement Note Debridement Note No debridement was completed: No debridement was completed today Post-Debridement Measurements and Additional Note: Post-Debridement Measurements/Treatment MYRA - Nurse 1 - General Ulcer Assessment Start: 01/30/25 14:05 Freq: Status: Active Protocol: LILIYA Activity Type Activity Date Activity User E-sign Co-sign Detail Recorded Client Recorded Date Recorded By Document 01/30/25 14:05 [email or web address] [id number] 01/30/25 14:10 WENCESLAO 01/30/25 14:05 MYRA - Today's Visit Information Type of service 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 Any new allergies or adverse reactions No Had a fall/change in ADL's that may No increase risk of falls Signs or symptoms of abuse and/or No neglect since last visit Have you been in the hospital since your No last visit? Has dressing in place as prescribed No Has compression in place as prescribed Yes Has offloadiing in place as prescribed Yes Experienced any changes in pain level or No management Left Footwear Regular Shoe Right Footwear Regular Shoe Pain Scale: 0-10 Numeric Is Patient Pain Free? Yes WC - Nurse 1 - General Ulcer Measurement Start: 01/30/25 14:05 Freq: Status: Active Protocol: Activity Type Activity Date Activity User E-sign Co-sign Detail Recorded Client Recorded Date Recorded By Document 01/30/25 14:05 [email or web address] [id number] 01/30/25 14:10 WENCESLAO 01/30/25 14:05 Wound Center Nurse 1 #4 RLE post calf -Combined with other wound No -Current Size (cm) - Length 2.5 -Current Size (cm) - Width 3.8 -Current Size (cm) - Depth 0.2 -Total Square Cm 9.50 -Photo Taken Yes -Epithelialization Medium 34-66% -Tunneling No -Undermining/Tunneling No -Circular Undermining No -Exudate Amt Medium -Exudate Type Serosanguineous -Wound Margin Flat & Intact -Granulation Amt Medium (34-66%) -Granulation Quality Red -Slough/Fibrin Yes -Necrosis Amt Small (1-33%) -Necrotic Tissue Type Adherent Slough -Structure Exposed N/A -Texture (Jannet-wound Skin Appearance) Assessed, Localized Edema -Moisture (Jannet-wound Skin Appearance) Assessed,Dry/ Scaly -Color (Jannet-wound Skin Appearance) Assessed, Hemosiderin Staining -Temperature (Jannet-wound Skin No Abnormality Appearance) (Pt Warm) -Tenderness on Palpation (Jannet-wound No Skin Appearance) -Ulcer Cleansing Rinsed/ Irrigated with Saline -Foul Odor after Cleansing No -Anesthetic Used 5% Lidocaine Gel Lower Limb Edema Present Yes Right Calf (cm) 34.3 Right Ankle (cm) 20.3 - Nurse 2 - General Ulcer CM Notes Start: 01/30/25 14:05 Freq: Status: Active Protocol: Activity Type Activity Date Activity User E-sign Co-sign Detail Recorded Client Recorded Date Recorded By Document 01/30/25 14:25 [id number] 01/30/25 14:28 DS 01/30/25 14:25 Wound Center Nurse 2 #4 RLE post calf -Time 14:25 -Correct Patient Yes -Correct Side, Site, Position Yes -Procedure Performed No -Post Debridement (cm) - Length 2.8 -Post Debridement (cm) - Width 3.8 -Post Debridement (cm) - Depth 0.2 -Total Square (Post) (cm) 10.64 -Area of Debridement (cm) - Length 2.8 -Area of Debridement (cm) - Width 3.8 -Total Square (Area) (cm) 10.64 -Tunneling No -Undermining/Tunneling No -Circular Undermining No -Wound/Ulcer Outcome Not Healed Pain Scale: 0-10 Numeric Is Patient Pain Free? Yes - Nurse 3 - General Ulcer D/C NN Start: 01/30/25 14:05 Freq: Status: Active Protocol: Activity Type Activity Date Activity User E-sign Co-sign Detail Recorded Client Recorded Date Recorded By Document 01/30/25 14:45 WENCESLAO [id number] 01/30/25 14:46 WENCESLAO 01/30/25 14:45 Wound Care Center Nurse 3 #4 RLE post calf -Ulcer Cleansing Rinsed/ Irrigated with Saline -Foul Odor after Cleansing No -Primary Dressing Applied C Hydrogel, NonAdherent Contact Layer -Primary Dressing Covered/Secured with Dry Gauze -Hydrogel 1 RLE -Tubular Bandage Double Layer -Size of Tubigrip Used Size D -Size D ($) 2 Pain Scale: 0-10 Numeric Is Patient Pain Free? Yes - Visit Discharge Discharge Condition Stable Ambulatory Status Ambulatory Transportation Private Auto Medication Reconcilliation completed & Yes provided to patient/care provider Clinical Summary of Care Provided Yes Charges/Coding Visit Charges Office Visits / Consults: 62107 OV L3 Est 20min Assessment/Plan Assessment/Plan (1) Non-pressure chronic ulcer of right lower leg with fat layer exposed: CODE(S): L97.912 - Non-pressure chronic ulcer of unspecified part of right lower leg with fat layer exposed (2) Traumatic open wound of right lower leg: CODE(S): S81.801A - Unspecified open wound, right lower leg, initial encounter QUALIFIERS: Encounter type: subsequent encounter Qualified Code(s): S81.801D - Unspecified open wound, right lower leg, subsequent encounter (3) Laceration of right lower leg: CODE(S): S81.811A - Laceration without foreign body, right lower leg, initial encounter QUALIFIERS: Encounter type: subsequent encounter Qualified Code(s): S81.811D - Laceration without foreign body, right lower leg, subsequent encounter (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: CODE(S): Z79.01 - [facility] (current) use of anticoagulants (5) Encounter related to worker's compensation claim: CODE(S): Z02.6 - Encounter for examination for insurance purposes (6) Chronic anticoagulation: CODE(S): Z79.01 - [facility] (current) use of anticoagulants (7) History of deep vein thrombosis: CODE(S): Z86.718 - Personal history of other venous thrombosis and embolism (8) History of appendectomy: CODE(S): Z90.49 - Acquired absence of other specified parts of digestive tract (9) History of hysterectomy: CODE(S): Z90.710 - Acquired absence of both cervix and uterus (10) History of hernia repair: CODE(S): Z98.890 - Other specified postprocedural states; Z87.19 - Personal history of other diseases of the digestive system (11) Hyperlipidemia: CODE(S): E78.5 - Hyperlipidemia, unspecified (12) Rheumatoid arthritis: CODE(S): M06.9 - Rheumatoid arthritis, unspecified (13) Fibromyalgia: CODE(S): M79.7 - Fibromyalgia (14) Scleroderma: CODE(S): M34.9 - Systemic sclerosis, unspecified (15) Bruising tendency: CODE(S): D69.9 - Hemorrhagic condition, unspecified (16) Rheumatoid arthritis: CODE(S): M06.9 - Rheumatoid arthritis, unspecified (17) Neuropathy: CODE(S): G62.9 - Polyneuropathy, unspecified PLAN: Plan This is a 70-year-old female who presented with an open wound on the right posterior calf. The injury occurred while at work, resulting in a full-thickness wound to the right posterior calf. The patient is on systemic anticoagulation due to multiple prior episodes of acute deep vein thrombosis. Recent INR's have been elevated beyond desired therapeutic levels. However, her most recent INR was found to be 2.0 today by her primary care physician. Results are monitored serially by the patient's primary care physician, Dr. Navas. Repeat PT/INR is anticipated in the near future, and is to be overseen by the patient's PCP. We are to continue the use of collagen hydrogel topically to the wound on a daily basis. This is to be covered by Adaptic and gauze. A double Tubigrip sleeve will be utilized for the purpose of compression. The patient has been instructed in appropriate means of application. This protocol is to be repeated by the patient daily. Thus far, debridements have not been implemented, as approval is pending with the patient's insurance provider (Worker's Compensation). Fortunately, her traumatic wound is relatively clean and devoid of significant necrotic and nonviable tissue. The patient has been encouraged to optimize her nutritional intake. The patient is to return in 1 week for reevaluation. Total time: 24 minutes
--- NOTE | 2025-02-06 14:08 | WC ---
Call placed to Giovany with [facility] - mariam to C-[phone] that was faxed on 01/24/25 - regarding debridements and dressing supplies
[2025-02-06 14:11] VITALS: BP 156/78; PULSE 75; RESP 16; TEMP 35.6
--- NOTE | 2025-02-06 15:42 | PCM.WC.HP ---
History of Present Illness Date of Service: 02/06/25 Chief Complaint: Traumatic wound of the right posterior calf History of Wound: This is a 70-year-old female who sustained a traumatic wound to her right posterior calf on January 15, 2025. While at work, the patient backed against a large plastic tote, sustaining laceration to the right posterior calf. Shortly thereafter, she was seen and evaluated in the [facility] Emergency Department, where it was deemed that suture closure would not be appropriate. She was advised to cleanse daily with soap and water, to apply antibiotic ointment, and to cover with a clean dressing. She presented to the [facility] for further evaluation of her open wound on the right posterior calf. It is noted that the patient is on lifelong systemic anticoagulation therapy with Coumadin due to history of recurrent lower extremity deep vein thrombosis. The patient's INR upon evaluation in the Emergency Department was 3.4, and her Coumadin dose is regulated by her other established medical providers. [facility] Medical History GERD (gastroesophageal reflux disease) Traumatic open wound of right lower leg Non-pressure chronic ulcer of right lower leg with fat layer exposed Laceration of right lower leg Wound, open, arm, forearm Wound infection Hyperlipidemia Rheumatoid arthritis Vertigo History of opioid abuse Traumatic open wound of right lower leg Ulcer of left thigh Open wound of left thigh Restless legs Difficulty swallowing Gastric reflux Non-smoker Shortness of breath on exertion Leg cramps History of pain when walking History of echocardiogram History of edema Rheumatoid arthritis Traumatic hematoma of left thigh Long-term current use of 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 History of deep vein thrombosis Skin necrosis History of skin cancer Neuropathy Arthritis Contusion of left thigh Contusion of left thigh, initial encounter Recurrent deep vein thrombosis of lower extremity DVT (deep venous thrombosis) High cholesterol Hypothyroidism Rheumatic fever Scleroderma Melanoma Headaches, cluster Fibromyalgia Home Medications ?Medication ?Instructions ?Recorded ?Last Taken ?Type estradiol 1 mg tablet 1 mg PO DAILY hormones 12/23/20 08/11/22 History acetaminophen 500 mg tablet 1,000 mg (2 x 500 mg) PO Q8 #0 tabs 08/07/22 08/11/22 Rx amitriptyline 25 mg tablet 25 mg PO QDAY 06/08/24 Unknown History hydroxychloroquine 200 mg tablet 200 mg PO QDAY 06/08/24 Unknown History oxycodone myristate 9 mg capsule 9 mg PO BID 06/08/24 Unknown History sprinkle extended release 12 hr(DON'T CRUSH) (Xtampza ER) Held on 01/17/25. Instructions: MD Ordered pantoprazole 40 mg tablet,delayed 40 mg PO QDAY 06/08/24 Unknown History release pregabalin 75 mg capsule (Lyrica) 75 mg PO QDAY 06/08/24 Unknown History citalopram 10 mg tablet 10 mg PO 01/15/25 Unknown History levothyroxine 75 mcg tablet 75 mcg PO DAILY 01/15/25 Unknown History warfarin 2.5 mg tablet 2 mg PO QDAY 01/15/25 Unknown History Allergy/AdvReac Type Severity Reaction Status Date / Time No Known Allergies Allergy Verified 01/15/25 17:49 Family History Sister Ovarian cancer Asthma Arthritis Cervical cancer Suicide attempt Father CAD (coronary artery disease) Skin cancer Brother CAD (coronary artery disease) Brother CAD (coronary artery disease) Mother Diabetes Other Breast cancer Cancer Surgical History History of appendectomy History of hysterectomy History of hernia repair History of hernia repair History of hysterectomy History of appendectomy Social History household members: spouse Smoking Status: Never smoker second hand exposure: No alcohol intake: never substance use type: does not use what type of physical activity do you participate in: walking frequency: 3-4 times per week lesly/restoration: None seatbelt use: always do you feel safe at home: Yes additional social history: Does Take Aspirin pt denies vaping, denies marijuana use, denies edibles Pt has history of DVT Does Take Ibuprofen Vital Signs Vital Signs Vital Signs: 02/06/25 14:11 Temperature 96.0 F L Temperature Source Temporal Pulse Rate 75 Respiratory Rate 16 Blood Pressure 156/78 H Blood Pressure Mean 104 Blood Pressure Source Monitor Blood Pressure Position Semi-Fowlers Blood Pressure Location Left Arm Physical Exam Const alert, oriented x3, no apparent distress, average body habitus, no limitations and well nourished Constitutional Narrative: The patient's BMI is 25.5. General Appearance: cooperative, well kempt and well developed Orientation / Consciousness: awake, oriented to person, oriented to place and oriented to time Exam Limitations: no limitations HEENT normocephalic and head/scalp atraumatic Head and Scalp: normal to inspection, normocephalic and atraumatic Face and Sinus: normal facial exam Nose: external nose normal External Ear: external ears normal Eyes EOMs intact bilaterally General Eye: normal appearance of both eyes Alignment: alignment normal Neck full ROM Resp normal respiratory effort, normal air movement, no retractions and no use of accessory muscles Effort and Inspection: able to speak in complete sentences Extremity no calf tenderness General Extremity: Negative for clubbing or cyanosis Skin Wound Narrative: Diffuse ecchymoses are noted in all extremities. A traumatic wound is noted on the patient's right posterior calf. The wound is full-thickness, extending through all layers of the dermis and into the subcutaneous tissues. The base of the wound is generally pink and healthy in appearance, with areas of active granulation tissue. Minimal bioburden and slough are present. There is no active bleeding at this time. Wound margins appear to be well beveled. There is no sign of infection or cellulitis. Dimensions are documented elsewhere. The wound has decreased in size since the patient's prior visit. No significant swelling is noted in the lower extremities. Neuro oriented x3, CN's II-XII intact bilaterally, moves all extremities and no focal motor deficits Sensorium / Orientation: awake, alert, oriented to person, oriented to place and oriented to time Speech: speech normal Psych Appearance: grossly normal and appropriate Attitude: calm Activity / Motor Behavior: appropriate eye contact Speech: normal speech Mood & Affect: euthymic mood Thought Process: normal thought process Thought Content: normal thought content Attention / Concentration: attention grossly intact Debridement Note Debridement Note No debridement was completed: No debridement was completed today Post-Debridement Measurements and Additional Note: Post-Debridement Measurements/Treatment MYRA - Nurse 1 - General Ulcer Assessment Start: 01/30/25 14:05 Freq: Status: Active Protocol: LILIYA Activity Type Activity Date Activity User E-sign Co-sign Detail Recorded Client Recorded Date Recorded By Document 01/30/25 14:05 [email or web address] [id number] 01/30/25 14:10 Document 02/06/25 14:11 [email or web address] [id number] 02/06/25 14:19 01/30/25 02/06/25 14:05 14:11 - Today's Visit Information Type of service Follow-up Visit Follow-up Visit (Physician/SURVIVAL SPECIALIST (Physician/SURVIVAL SPECIALIST ) ) Arrival Mode Ambulatory Ambulatory Patient Identification Verified (Name & Yes Yes ) Patient Requires Transmission-Based No No Precautions Vital Signs Temperature (97.8 F-99.1 F) 96.1 F L 96.0 F L Temperature Source Temporal Temporal Pulse Rate (60-100) 135 H 75 Pulse Location Monitor Monitor Respiratory Rate (12-18) 16 16 Respiratory rate source Observation Observation Blood Pressure (90/60-120/80) 135/72 H 156/78 H Blood Pressure Mean 93 104 Source Monitor Monitor Position Sitting Semi-Fowlers Blood Pressure Location Left Arm Left Arm History Since Last Visit- (Skip if this is Patient's initial visit) Have you changed medications since your Yes Yes last visit? Any new allergies or adverse reactions No No Had a fall/change in ADL's that may No No increase risk of falls Signs or symptoms of abuse and/or No No neglect since last visit Have you been in the hospital since your No No last visit? Has dressing in place as prescribed No Yes Has compression in place as prescribed Yes Yes Has offloadiing in place as prescribed Yes N/A Experienced any changes in pain level or No No management Left Footwear Regular Shoe Regular Shoe Right Footwear Regular Shoe Regular Shoe Pain Scale: 0-10 Numeric Is Patient Pain Free? Yes Yes - Nurse 1 - General Ulcer Measurement Start: 01/30/25 14:05 Freq: Status: Active Protocol: Activity Type Activity Date Activity User E-sign Co-sign Detail Recorded Client Recorded Date Recorded By Document 01/30/25 14:05 [id number] 01/30/25 14:10 Document 02/06/25 14:11 [id number] 02/06/25 14:19 01/30/25 02/06/25 14:05 14:11 Wound Center Nurse 1 #4 RLE post calf -Combined with other wound No No -Current Size (cm) - Length 2.5 2.5 -Current Size (cm) - Width 3.8 2.6 -Current Size (cm) - Depth 0.2 0.1 -Total Square Cm 9.50 6.50 -Photo Taken Yes Yes -Epithelialization Medium 34-66% Medium 34-66% -Tunneling No No -Undermining/Tunneling No No -Circular Undermining No No -Exudate Amt Medium Small -Exudate Type Serosanguineous Serosanguineous -Wound Margin Flat & Intact Flat & Intact -Granulation Amt Medium (34-66%) Large (67-100%) -Granulation Quality Red Red -Slough/Fibrin Yes Yes -Necrosis Amt Small (1-33%) Small (1-33%) -Necrotic Tissue Type Adherent Slough Adherent Slough -Structure Exposed N/A N/A -Texture (Jannet-wound Skin Appearance) Assessed, Assessed, Localized Edema Localized Edema -Moisture (Jannet-wound Skin Appearance) Assessed,Dry/ No Abnormality, Scaly Dry/Scaly -Color (Jannet-wound Skin Appearance) Assessed, Assessed Hemosiderin Staining -Temperature (Jannet-wound Skin No Abnormality No Abnormality Appearance) (Pt Warm) (Pt Warm) -Tenderness on Palpation (Jannet-wound No No Skin Appearance) -Ulcer Cleansing Rinsed/ Rinsed/ Irrigated with Irrigated with Saline Saline -Foul Odor after Cleansing No No -Anesthetic Used 5% Lidocaine 5% Lidocaine Gel Gel Lower Limb Edema Present Yes Yes Right Calf (cm) 34.3 35 Right Ankle (cm) 20.3 19.5 WC - Nurse 2 - General Ulcer CM Notes Start: 01/30/25 14:05 Freq: Status: Active Protocol: Activity Type Activity Date Activity User E-sign Co-sign Detail Recorded Client Recorded Date Recorded By Document 01/30/25 14:25 DS [id number] 01/30/25 14:28 DS Document 02/06/25 14:30 DS [id number] 02/06/25 14:31 DS 01/30/25 02/06/25 14:25 14:30 Wound Center Nurse 2 #4 RLE post calf -Time 14: 14:31 -Correct Patient Yes Yes -Correct Side, Site, Position Yes Yes -Procedure Performed No No -Post Debridement (cm) - Length 2.8 2.5 -Post Debridement (cm) - Width 3.8 2.6 -Post Debridement (cm) - Depth 0.2 0.1 -Total Square (Post) (cm) 10.64 6.50 -Area of Debridement (cm) - Length 2.8 2.5 -Area of Debridement (cm) - Width 3.8 2.6 -Total Square (Area) (cm) 10.64 6.50 -Tunneling No No -Undermining/Tunneling No No -Circular Undermining No No -Wound/Ulcer Outcome Not Healed Not Healed Pain Scale: 0-10 Numeric Is Patient Pain Free? Yes Yes - Nurse 3 - General Ulcer D/C NN Start: 01/30/25 14:05 Freq: Status: Active Protocol: Activity Type Activity Date Activity User E-sign Co-sign Detail Recorded Client Recorded Date Recorded By Document 01/30/25 14:45 JF [id number] 01/30/25 14:46 JF Document 02/06/25 14:38 TS [id number] 02/06/25 14:40 TS 01/30/25 02/06/25 14:45 14:38 Wound Care Center Nurse 3 #4 RLE post calf -Ulcer Cleansing Rinsed/ Rinsed/ Irrigated with Irrigated with Saline Saline -Foul Odor after Cleansing No -Primary Dressing Applied C Hydrogel, C Hydrogel, NonAdherent NonAdherent Contact Layer Contact Layer -Primary Dressing Covered/Secured with Dry Gauze Dry Gauze, Secured with Tape -Hydrogel 1 1 RLE -Lotion applied to leg before No compression wrap -Tubular Bandage Double Layer Double Layer -Size of Tubigrip Used Size D Size D -Size D ($) 2 2 Treatment Response Procedure Tolerated Well Pain Scale: 0-10 Numeric Is Patient Pain Free? Yes Yes - Visit Discharge Discharge Condition Stable Stable Ambulatory Status Ambulatory Ambulatory Transportation Private Auto Private Auto Medication Reconcilliation completed & Yes No provided to patient/care provider Clinical Summary of Care Provided Yes Yes Charges/Coding Visit Charges Office Visits / Consults: [id number] OV L3 Est 20min Assessment/Plan Assessment/Plan (1) Non-pressure chronic ulcer of right lower leg with fat layer exposed: CODE(S): L97.912 - Non-pressure chronic ulcer of unspecified part of right lower leg with fat layer exposed (2) Traumatic open wound of right lower leg: CODE(S): S81.801A - Unspecified open wound, right lower leg, initial encounter QUALIFIERS: Encounter type: subsequent encounter Qualified Code(s): S81.801D - Unspecified open wound, right lower leg, subsequent encounter (3) Laceration of right lower leg: CODE(S): S81.811A - Laceration without foreign body, right lower leg, initial encounter QUALIFIERS: Encounter type: subsequent encounter Qualified Code(s): S81.811D - Laceration without foreign body, right lower leg, subsequent encounter (4) 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: CODE(S): Z79.01 - 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 (5) Encounter related to worker's compensation claim: CODE(S): Z02.6 - Encounter for examination for insurance purposes (6) Chronic anticoagulation: CODE(S): Z79.01 - 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 (7) History of deep vein thrombosis: CODE(S): Z86.718 - Personal history of other venous thrombosis and embolism (8) History of appendectomy: CODE(S): Z90.49 - Acquired absence of other specified parts of digestive tract (9) History of hysterectomy: CODE(S): Z90.710 - Acquired absence of both cervix and uterus (10) History of hernia repair: CODE(S): Z98.890 - Other specified postprocedural states; Z87.19 - Personal history of other diseases of the digestive system (11) Hyperlipidemia: CODE(S): E78.5 - Hyperlipidemia, unspecified (12) Rheumatoid arthritis: CODE(S): M06.9 - Rheumatoid arthritis, unspecified (13) Fibromyalgia: CODE(S): M79.7 - Fibromyalgia (14) Scleroderma: CODE(S): M34.9 - Systemic sclerosis, unspecified (15) Bruising tendency: CODE(S): D69.9 - Hemorrhagic condition, unspecified (16) Rheumatoid arthritis: CODE(S): M06.9 - Rheumatoid arthritis, unspecified (17) Neuropathy: CODE(S): G62.9 - Polyneuropathy, unspecified PLAN: Plan This is a 70-year-old female who presented with an open wound on the right posterior calf. The injury occurred while at work, resulting in a full-thickness wound to the right posterior calf. The patient is on systemic anticoagulation due to multiple prior episodes of acute deep vein thrombosis. Some recent INR's have been elevated beyond desired therapeutic levels. She is regulated in this regard by her primary care physician, Dr. Navas. We are to continue the use of collagen hydrogel topically to the wound on a daily basis. This is to be covered by Adaptic and gauze. A double Tubigrip sleeve will be utilized for the purpose of compression. The patient has been instructed in appropriate means of application. This protocol is to be repeated by the patient daily. Thus far, debridements have not been implemented, as approval is pending with the patient's insurance provider (Worker's Compensation). Fortunately, her traumatic wound is relatively clean and devoid of significant necrotic and nonviable tissue. The patient has been encouraged to optimize her nutritional intake. The patient is to return in 1 week for reevaluation. Total time: 25 minutes
== END 2025-02-25 23:59 | disposition home or self-care (01) ==
LOC: WC 14:15
PROVIDERS: PCP Family Medicine Geriatric Medicine; Referring Provider Physician Assistant; Visit Provider Surgery
DX: L97.912 Non-pressure chronic ulcer of unspecified part of right lower leg with fat layer exposed (principal); S81.811D Laceration without foreign body, right lower leg, subsequent encounter; W22.09XD Striking against other stationary object, subsequent encounter; Y99.0 Civilian activity done for income or pay; Z79.01 Long term (current) use of anticoagulants; Z79.899 Other long term (current) drug therapy; Z79.891 Long term (current) use of opiate analgesic; Z86.718 Personal history of other venous thrombosis and embolism
CPT/HCPCS: 99213; G0463

== ENCOUNTER → 2025-02-20 | Outpatient (CLI) | payer OTHER, SELFPAY | END | disposition home or self-care (01) | LOC: POLAB3 16:49 | PROVIDERS: PCP Family Medicine Geriatric Medicine; Visit Provider Family Medicine Geriatric Medicine | DX: R06.2 Wheezing (principal) | CPT/HCPCS: 87631 ==